=== PATIENT | female | born 2000 | race Caucasian/White ===

== ENCOUNTER 2022-11-11 11:16 | Outpatient (OUT) | payer BC, SELFPAY ==
[2022-11-11 11:57] LABS: Glucose 1 Hour 128 mg/dL
[2022-11-11 12:13] LABS: Basophils Percent Auto 0.2 % (0.2-2.0); Eosinophils Absolute Auto 0.1 10^3/uL (0.0-0.7); Eosinophils Percent Auto 0.5 % (0.9-7.0); Hematocrit 37.7 % (36.0-48.0); Hemoglobin 12.5 g/dL (12.0-16.0); Immature Granulocytes Abs Auto 0.11 10^3/uL (0.00-0.03); Immature Granulocytes Pct Auto 0.9 % (0.0-0.5); Lymphocytes Absolute Auto 1.8 10^3/uL (1.2-3.8); Mean Corpuscular HGB Conc 33.2 g/dL (29.9-35.2); Mean Corpuscular Hemoglobin 29.4 pg (26.7-34.0); Mean Corpuscular Volume 88.7 fL (81.0-99.0); Mean Platelet Volume 10.4 fL (9.5-13.5); Monocytes Absolute Auto 0.8 10^3/uL (0.3-0.8); Monocytes Percent Auto 6.1 % (1.7-12.0); Neutrophils Percent Auto 78.3 % (43.0-75.0); Platelet Count 246 10^3/uL (150-450); Red Blood Count 4.25 10^6/uL (4.20-5.40); Red Cell Distribution Width 12.9 % (11.0-15.0); White Blood Count 12.7 10^3/uL (4.0-11.0)
== END 2022-11-11 11:17 ==
LOC: LAB 11:20
PROVIDERS: Visit Provider Obstetrics & Gynecology
DX: Z13.1 Encounter for screening for diabetes mellitus (principal)
CPT/HCPCS: 36415; 82950; 85025

== ENCOUNTER 2022-11-11 12:47 | Outpatient (OUT) | payer BC, SELFPAY ==
--- NOTE | 2022-11-11 12:52 | US_ITS ---
[place] [id number] Patient Name: JONG AYERS MRN: [id number] date: 2000 Sex: F Assigned Patient Location: RAD Current Patient Location: RAD Accession/Order Number: [id number] Exam Date: 11/11/2022 12:55 Report Date: 11/11/2022 17:37 At the request of: YARA GARCIA Procedure: US OB growth EXAMINATION: US OB growth HISTORY: size Inconsistant with dates O26.849 COMPARISON: No relevant comparison available. FINDINGS: Heart Rate: 146.7 bpm Amniotic Fluid Volume: 17.6 cm Number: 1.0 Position: Breech presentation, longitudinal lie Maximum Vertical Pocket: 4.7 cm cm 5.3 cm cm 1.7 cm cm 5.8 cm cm BIOMETRY: BPD: 6.7 cm cm; 27 weeks 0 days; 57% HC: 25.1 cmcm; 27 weeks 1 days, 45% AC: 26.5 cm cm; 30 weeks 5 days, >97% FL: 5.1 cm cm; 27 weeks 1 days; 54.0 % % EFW: 1308.0 grams, 2 lbs. 14 oz.,>97% FL/AC: 19.1 FL/BPD: 75.4 HC/AC: 0.9 GESTATIONAL AGE: Age by EDC: 26 weeks 4 days NHAN by EDC: 02/13/2023 Age by US: 28 weeks 0 days NHAN by US: 02/03/2023 IMPRESSION: Large for gestational age Abdominal circumference and estimated weight greater than the 97th percentile Electronically authenticated by: SIMA LEVY Date: 11/11/2022 17:37
== END 2022-11-11 12:48 ==
LOC: RAD 12:48
PROVIDERS: Visit Provider Physician Assistant
DX: Z13.1 Encounter for screening for diabetes mellitus (principal); O26.842 Uterine size-date discrepancy, second trimester; Z3A.26 26 weeks gestation of pregnancy
CPT/HCPCS: 36415; 76816; 82950; 85025

== ENCOUNTER 2022-12-06 07:39 | Outpatient (OUT) | payer BC, SELFPAY ==
[2022-12-06 12:58] VITALS: BP 122/83; PULSE 107; RESP 20; TEMP 36.4; O2SAT 100
[2022-12-06] MEDS: RHO(D) IMMUNE GLOBULIN 1,500 UNIT SYRINGE 1500 UNIT IM (13:02)
--- NOTE | 2022-12-06 13:18 | PC.NURSE ---
1258: Pt. to [facility] amb per self. Seated in recliner. Blood type and allergies verified. Educated pt. on purpose of Rhogam, questions addressed. Pt. medicated with Rhophylac 1500IU IM to right dorsal gluteal. No bleeding to site. Bandaid placed prophylactically. Pt. tolerated with minimal c/o. Given water. Reminded pt. need for brief observation for potential reaction. Pt. relays understanding. Pt. inquired about edi consultant. Pt. given Joleen Clarke RN number and extension. 1330: Pt. relays slight nausea, but relays she was nervous . Denies other c/o. Pt. d/c'd amb to home.
== END 2022-12-06 07:40 | disposition home or self-care (01) ==
LOC: LAB 07:40
PROVIDERS: Visit Provider Obstetrics & Gynecology
DX: O26.893 Other specified pregnancy related conditions, third trimester (principal); Z67.11 Type A blood, Rh negative; Z3A.49 Greater than 42 weeks gestation of pregnancy
CPT/HCPCS: 36415; 86850; 86900; 86901; 96372; J2790

== ENCOUNTER 2022-12-21 14:11 | Outpatient (OUT) | payer BC, SELFPAY ==
--- NOTE | 2022-12-21 14:15 | US_ITS ---
[address] [address] Patient Name: JONG AYERS MRN: [id number] date: 2000 Sex: F Assigned Patient Location: Current Patient Location: US Accession/Order Number: [id number] Exam Date: 12/21/2022 14:16 Report Date: 12/21/2022 15:09 At the request of: DEMETRICE JEAN-BAPTISTE Procedure: US OB growth EXAMINATION: US OB growth HISTORY: SIZE INCONSISTENT WITH DATES COMPARISON: No relevant comparison available. FINDINGS: Heart Rate: 159.0 bpm Number: 1.0 Position: CEPHALIC Amniotic Fluid Volume: 15.4 cm Maximum Vertical Pocket: 5.0 cm BIOMETRY: BPD: 8.5 cm cm; 34 weeks 1 days HC: 30.6 cmcm; 34 weeks 1 days AC: 29.5 cm cm; 33 weeks 4 days FL: 6.5 cm cm; 33 weeks 5 days EFW: 2250.0 grams; 82% FL/AC: 22.1 FL/BPD: 76.9 HC/AC: 1.0 GESTATIONAL AGE: Age by EDC: 32 weeks 2 days NHAN by EDC: 02/13/2023 Age by US: 33 weeks 6 days NHAN by US: 02/02/2023 US/US OB growth IMPRESSION: 1. Single live intrauterine with growth detailed above. Electronically authenticated by: KEV WOLFF Date: 12/21/2022 15:09
== END 2022-12-21 14:12 | disposition home or self-care (01) ==
LOC: US 14:12
PROVIDERS: Visit Provider Obstetrics & Gynecology
DX: O26.849 Uterine size-date discrepancy, unspecified trimester (principal); Z3A.00 Weeks of gestation of pregnancy not specified
CPT/HCPCS: 76816

== ENCOUNTER 2023-01-19 12:28 | Outpatient (REF) | payer BC, SELFPAY | END 2023-01-19 12:29 | disposition home or self-care (01) | LOC: LAB 12:28 | PROVIDERS: Visit Provider Obstetrics & Gynecology | DX: Z34.93 Encounter for supervision of normal pregnancy, unspecified, third trimester (principal) | CPT/HCPCS: 87081 ==

== ENCOUNTER 2023-01-26 14:03 | Outpatient (OUT) | payer BC, SELFPAY ==
--- NOTE | 2023-01-26 14:04 | US_ITS ---
[address] [address] Patient Name: JONG AYERS MRN: [id number] date: 2000 Sex: F Assigned Patient Location: US Current Patient Location: US Accession/Order Number: [id number] Exam Date: 01/26/2023 14:08 Report Date: 01/26/2023 15:09 At the request of: DEMETRICE JEAN-BAPTISTE Procedure: US OB growth EXAMINATION: US OB growth HISTORY: EXCESSIVE GROWTH O36.63 COMPARISON: No relevant comparison available. FINDINGS: Heart Rate: 140.0 bpm Amniotic Fluid Volume: 12.8 cm Number: 1.0 Position: Cephalic presentation, longitudinal lie Maximum Vertical Pocket: 3.7 cm cm 3.4 cm cm 3.2 cm cm 2.6 cm cm BIOMETRY: BPD: 9.6 cm cm; 39 weeks 2 days; 97% HC: 34.2 cmcm; 39 weeks 3 days, 74% AC: 34.8 cm cm; 38 weeks 5 days, 92% FL: 7.5 cm cm; 38 weeks 1 days; 69.3 % % EFW: 3587.2 grams, 7 lbs. 15 oz., 88% FL/AC: 21.4 FL/BPD: 77.6 HC/AC: 1.0 GESTATIONAL AGE: Age by EDC: 37 weeks 3 days NHAN by EDC: 02/13/2023 Age by US: 38 weeks 6 days NHAN by US: 02/03/2023 US/US OB growth IMPRESSION: BPD at the 97th percentile, otherwise normal interval growth Electronically authenticated by: SIMA LEVY Date: 01/26/2023 15:09
== END 2023-01-26 14:04 | disposition home or self-care (01) ==
LOC: US 14:03
PROVIDERS: Visit Provider Obstetrics & Gynecology
DX: O36.63X0 Maternal care for excessive fetal growth, third trimester, not applicable or unspecified (principal); Z3A.37 37 weeks gestation of pregnancy
CPT/HCPCS: 76816

== ENCOUNTER 2023-02-08 04:23 | Inpatient (IN) | payer BC, SELFPAY ==
[2023-02-08] VITALS (47 sets, daily range): BP systolic 92–157; BP diastolic 42–93; PULSE 84–146; RESP 16–61; TEMP 36.2–37.4; O2SAT 98–100
[2023-02-08 05:20] LABS: Hematocrit 36.2 % (36.0-48.0); Hemoglobin 12.2 g/dL (12.0-16.0); Mean Corpuscular HGB Conc 33.7 g/dL (29.9-35.2); Mean Corpuscular Hemoglobin 27.9 pg (26.7-34.0); Mean Corpuscular Volume 82.6 fL (81.0-99.0); Mean Platelet Volume 11.8 fL (9.5-13.5); Platelet Count 279 10^3/uL (150-450); Red Blood Count 4.38 10^6/uL (4.20-5.40); Red Cell Distribution Width 13.8 % (11.0-15.0)
[2023-02-08 05:21] LABS: Bilirubin Urine NEGATIVE (NEGATIVE); Blood Urine LARGE (NEGATIVE); Clarity Urine CLEAR (CLEAR); Color Urine LT. YELLOW (YELLOW); Glucose Urine UA NEGATIVE (NEGATIVE); Ketones Urine NEGATIVE (NEGATIVE); Leukocyte Esterase Urine NEGATIVE (NEGATIVE); Nitrite Urine NEGATIVE (NEGATIVE); Protein Urine NEGATIVE (NEG/TRACE); Urobilinogen Urine 0.2 EU/dL (0.2-1.0)
[2023-02-08 05:25] LABS: Urine Microscopic Indicated YES
[2023-02-08] MEDS: 0.9 % SODIUM CHLORIDE 1,000 ML 125 ML IV ×3 (05:27→12:12)
[2023-02-08 05:32] LABS: Amphetamine Screen Urine NEGATIVE (NEGATIVE); Barbiturates Screen Urine NEGATIVE (NEGATIVE); Benzodiazepines Screen Urine NEGATIVE (NEGATIVE); Buprenorphine Screen Urine NEGATIVE (NEGATIVE); Cannabinoid Screen Urine NEGATIVE (NEGATIVE); Cocaine Screen Urine NEGATIVE (NEGATIVE); Methadone Screen Urine NEGATIVE (NEGATIVE); Methamphetamines Screen Urine NEGATIVE (NEGATIVE); Opiate Screen Urine NEGATIVE (NEGATIVE); Oxycodone Screen Urine NEGATIVE (NEGATIVE); Phencyclidine Screen Urine NEGATIVE (NEGATIVE); Tricyclic Antidepressant Urine NEGATIVE (NEGATIVE)
[2023-02-08 05:36] LABS: Bacteria Urine TRACE #/HPF (NONE SEEN); Cast Seen? NONE SEEN #/LPF (NONE SEEN); Crystals Seen? None Seen #/HPF (None Seen); Mucus Urine NONE SEEN (NONE SEEN); RBC Urine 0-2 #/HPF (0-2); Squamous Epithelial Cell Urine MANY #/LPF (NONE/RARE); Urine Culture Indicated NO; WBC Urine 0-2 #/HPF (NONE SEEN)
[2023-02-08] MEDS: ROPIVACAINE HCL/PF 400 MG/200 ML PREMIX 10 MG EPIDURAL (06:14)
[2023-02-08] MEDS: FENTANYL CITRATE/PF 100 MCG/2 ML VIAL EPIDURAL ×2 (06:16→06:18)
[2023-02-08] MEDS: 0.9 % SODIUM CHLORIDE 1,000 ML 1000 ML IV (06:18)
[2023-02-08] MEDS: ONDANSETRON PF 4 MG/2 ML VIAL IV ×2 (07:29→11:36)
[2023-02-08] MEDS: OXYTOCIN/0.9 % SODIUM CHLORIDE 10 UNITS/500 ML PLAST..BAG 6 UNIT IV (08:42)
[2023-02-08] MEDS: OXYTOCIN/0.9 % SODIUM CHLORIDE 20 UNITS/1,000 ML PLAST..BAG 125 UNIT IV (11:28)
--- NOTE | 2023-02-08 11:44 | PM.OBPRCVD ---
Procedure Intrapartal events: None Induction method: none Delivery augmentation: pitocin Delivery monitor: external FHT and external uterine Route of delivery: Episiotomy Description: right mediolateral Laceration description: perineal - 4th degree Delivery repair: Vicryl and Chromic Estimated blood loss (mL): 400 Anesthesia type: Epidural Disposition: floor Delivery date: 02/08/23 Gender: male presentation: vertex Placental delivery description: Spontaneous cord description: 3 Vessels and Nuchal Cord
[2023-02-08] MEDS: BENZOCAINE/MENTHOL 85 GRAM SPRAY BOTTLE 1 APPLIC TOPICAL (12:42)
[2023-02-08] MEDS: GLYCERIN/WITCH HAZEL PADS 1 PAD TOPICAL (12:42)
[2023-02-08 13:11] LABS: Basophils Percent Auto 0.1 % (0.2-2.0); Hematocrit 27.7 % (36.0-48.0); Immature Granulocytes Abs Auto 0.09 10^3/uL (0.00-0.03); Immature Granulocytes Pct Auto 0.5 % (0.0-0.5); Lymphocytes Absolute Auto 1.5 10^3/uL (1.2-3.8); Lymphocytes Percent Auto 8.6 % (20.5-60.0); Mean Corpuscular HGB Conc 32.5 g/dL (29.9-35.2); Mean Corpuscular Hemoglobin 27.6 pg (26.7-34.0); Mean Platelet Volume 11.8 fL (9.5-13.5); Monocytes Absolute Auto 1.5 10^3/uL (0.3-0.8); Monocytes Percent Auto 8.4 % (1.7-12.0); Neutrophils Absolute Auto 14.6 10^3/uL (1.4-6.5); Neutrophils Percent Auto 82.4 % (43.0-75.0); Platelet Count 244 10^3/uL (150-450); Red Blood Count 3.26 10^6/uL (4.20-5.40); Red Cell Distribution Width 13.9 % (11.0-15.0); White Blood Count 17.7 10^3/uL (4.0-11.0)
[2023-02-08] MEDS: IBUPROFEN 600 MG TABLET PO ×2 (15:19→21:48)
[2023-02-08] MEDS: ACETAMINOPHEN 325 MG TABLET 650 MG PO (20:20)
[2023-02-09] VITALS (27 sets, daily range): BP systolic 86–129; BP diastolic 50–84; PULSE 90–133; RESP 16–22; TEMP 36.2–36.9
[2023-02-09] MEDS: IBUPROFEN 600 MG TABLET PO ×4 (03:56→23:25)
--- NOTE | 2023-02-09 07:09 | W.PC.ACHO ---
Registration Status: ADM IN Primary Language: Spanish Preferred Language: Spanish Active Medications Generic Name Dose Route Start Last Admin Trade Name Freq PRN Reason Stop Dose Admin Acetaminophen 650 mg 02/08/23 11:46 02/08/23 20:20 Acetaminophen 325 Mg Tablet PO 650 mg Q6H PRN Administration Mild Pain Al Hydroxide/Mg Hydroxide 2,400 mg 02/08/23 11:46 Magnesium Hydroxide 2,400 Mg/10 Ml Oral.Susp PO Q6H PRN Dyspepsia Benzocaine/Menthol 1 applic 02/08/23 11:46 02/08/23 12:42 Benzocaine/Menthol 85 Gram [place] Bottle TOPICAL 1 applic Q2H PRN Administration Pain Carboprost Tromethamine 250 mcg 02/08/23 04:23 Carboprost Tromethamine 250 Mcg/Ml 1 Ml Vial IM 02/09/23 12:00 Q15M PRN Bleeding Diphtheria/Pertussis/Tetanus Vacc 0.5 ml 02/10/23 09:00 Adacel Diph,Pertuss(Acell),Tet Vac/Pf 0.5 Ml Adult Syringe IM 02/10/23 09:01 .ONCE ONE Docusate Sodium 100 mg 02/09/23 09:00 Docusate Sodium 100 Mg Capsule PO BID MARK Sodium Chloride 1,000 mls @ 125 mls/hr 02/08/23 04:30 02/08/23 12:12 Sodium Chloride 0.9% 1,000 Ml IV 125 mls/hr .Q8H MARK Administration Ibuprofen 600 mg 02/08/23 11:46 02/09/23 03:56 Ibuprofen 600 Mg Tablet PO 600 mg Q6H PRN Administration Moderate Pain Measles/Mumps/Rubella Vaccine Live 0.5 ml 02/10/23 09:00 Measles,Mumps,Rubella Vacc/Pf 0.5 Ml Vial SQ 02/10/23 09:01 .ONCE ONE Methylergonovine Maleate 0.2 mg 02/08/23 04:23 Methylergonovine Maleate 0.2 Mg/Ml Ampule IM 02/09/23 12:00 ONCE PRN Uterine Contractility/Contract Methylergonovine Maleate 0.2 mg 02/08/23 04:23 Methylergonovine Maleate 0.2 Mg Tablet PO 02/09/23 12:00 Q4H PRN Uterine Contractility/Contract Misoprostol 600 mcg 02/08/23 04:23 Misoprostol 100 Mcg Tablet PO 02/09/23 12:00 ONCE PRN Uterine Bleeding Misoprostol 800 mcg 02/08/23 04:23 Misoprostol 100 Mcg Tablet SL 02/09/23 12:00 ONCE PRN Uterine Bleeding Misoprostol 1,000 mcg 02/08/23 04:23 Misoprostol 100 Mcg Tablet [place] 02/09/23 12:00 ONCE PRN Uterine Bleeding Ondansetron HCl 4 mg 02/08/23 04:23 02/08/23 11:36 Ondansetron Pf 4 Mg/2 Ml Vial IV 4 mg Q6H PRN Administration Nausea And Vomiting Ondansetron HCl 4 mg 02/08/23 04:23 Ondansetron 4 Mg Rapdis Tablet SL Q6H PRN Nausea And Vomiting Rho Immune Globulin 1,500 unit 02/09/23 10:00 Rho(D) Immune Globulin 1,500 Unit Syringe IV 02/09/23 10:01 ONCE ONE Senna 17.2 mg 02/08/23 20:00 Sennosides 8.6 Mg Tablet PO QHS PRN Constipation Simethicone 80 mg 02/08/23 11:46 Simethicone 80 Mg Tab.Chew PO QID PRN Abdominal Distention Temazepam 15 mg 02/08/23 11:46 Temazepam 15 Mg Capsule PO QHS PRN Sleep Witch Lucretia/Glycerin 1 pad 02/08/23 11:46 02/08/23 12:42 Glycerin/Witch Lucretia Pads TOPICAL 1 pad Q2H PRN Administration Pain Diet Category Date Time Status Regular Consistency Diet Diet 02/08/23 Dinner Active Respiratory Pulse Oximetry 98 Pulse Oximetry 98 Pulse Oximetry 100 Pulse Oximetry 100 Oxygen Delivery Method Room Air Oxygen Delivery Method Room Air Renal Bladder Pattern Continent
[2023-02-09 08:06] LABS: Basophils Percent Auto 0.2 % (0.2-2.0); Eosinophils Absolute Auto 0.1 10^3/uL (0.0-0.7); Eosinophils Percent Auto 0.4 % (0.9-7.0); Immature Granulocytes Abs Auto 0.11 10^3/uL (0.00-0.03); Immature Granulocytes Pct Auto 0.8 % (0.0-0.5); Lymphocytes Absolute Auto 2.6 10^3/uL (1.2-3.8); Lymphocytes Percent Auto 18.7 % (20.5-60.0); Mean Corpuscular HGB Conc 31.9 g/dL (29.9-35.2); Mean Corpuscular Hemoglobin 27.7 pg (26.7-34.0); Mean Platelet Volume 11.3 fL (9.5-13.5); Neutrophils Absolute Auto 9.9 10^3/uL (1.4-6.5); Neutrophils Percent Auto 72.9 % (43.0-75.0); Platelet Count 165 10^3/uL (150-450); Red Blood Count 2.38 10^6/uL (4.20-5.40); Red Cell Distribution Width 14.3 % (11.0-15.0); White Blood Count 13.6 10^3/uL (4.0-11.0)
[2023-02-09 08:11] LABS: Hematocrit 20.7 % (36.0-48.0); Hemoglobin 6.6 g/dL (12.0-16.0)
--- NOTE | 2023-02-09 08:47 | PC.NURSE ---
Independently latches baby to right breast with good positioning and deep latch noted. Audible swallows noted by mom and LC
[2023-02-09] MEDS: DOCUSATE SODIUM 100 MG CAPSULE PO ×2 (10:04→21:26)
[2023-02-09] MEDS: ONDANSETRON 4 MG RAPDIS TABLET SL (11:10)
--- NOTE | 2023-02-09 13:16 | PM.OBPN ---
OB - PN: Subj Subjective Patient comments: no complaints and pain well controlled [place] status: doing well Exam Constitutional Vital Signs, click to edit/add: Last Vital Signs Temp 97.6 F 02/09/23 11:50 Pulse 109 H 02/09/23 13:03 Resp 16 02/09/23 11:49 BP 129/69 02/09/23 13:03 Pulse Ox 98 02/08/23 12:40 O2 Del Method Room Air 02/09/23 11:50 Documenting provider has reviewed patient's vital signs: yes Common normals: no apparent distress Respiratory Common normals: normal respiratory effort and clear to auscultation bilaterally Cardio Common normals: regular rate and regular rhythm GI Common normals: Normal to inspection, nondistended, normoactive bowel sounds present Extremity Common normals: no clubbing, cyanosis or edema and no calf tenderness Results Labs Labs: Short CBC 02/09/23 Range/Units 06:55 WBC 13.6 H (4.0-11.0) 10^3/uL Hgb 6.6 L* D (12.0-16.0) g/dL Hct 20.7 L* (36.0-48.0) % Plt Count 165 (150-450) 10^3/uL OB - PN: A/P Assessment and Plan (1) Acute blood loss anemia: Assessment and Plan: give 2u prbcs, repeat cbc in am Plan - Vaginal Delivery day: 1 Plan: routine care Time Spent with Patient Time: Total time spent is greater than 50% in coordination of care (as documented) at patient's floor/unit and/or counseling patient: Total time spent with greater than 50% in coordination of care (as documented) at patient's floor/unit and/or counseling patient: less than 15 minutes
--- NOTE | 2023-02-09 14:22 | PC.NURSE ---
1030 discussed order for blood and pt agrees, asks appropriate questions and answers resolved, saline lock flushes easily and blood begun- see charting,
--- NOTE | 2023-02-09 14:25 | PC.NURSE ---
1110 States feels hot and has nausea, room temp adjusted and medicated with zofran and given cool washcloth
[2023-02-09] MEDS: RHO(D) IMMUNE GLOBULIN 1,500 UNIT SYRINGE 1500 UNIT IV (17:00)
--- NOTE | 2023-02-09 17:44 | PC.NURSE ---
1700 Given sitz bath and donut pillow with instructions, fresh ice pack, instructed on sidelying positioning and education provided on bathing baby and circ care with demo of each done
[2023-02-09] MEDS: BUPROPION HCL 150 MG XL TABLET 24H PO (21:26)
[2023-02-10 01:18] VITALS: BP 118/74; PULSE 97; TEMP 36.4
[2023-02-10 06:24] LABS: Basophils Absolute Auto 0.1 10^3/uL (0.0-0.1); Basophils Percent Auto 0.4 % (0.2-2.0); Eosinophils Absolute Auto 0.3 10^3/uL (0.0-0.7); Eosinophils Percent Auto 2.3 % (0.9-7.0); Hematocrit 26.6 % (36.0-48.0); Hemoglobin 8.6 g/dL (12.0-16.0); Immature Granulocytes Abs Auto 0.16 10^3/uL (0.00-0.03); Immature Granulocytes Pct Auto 1.3 % (0.0-0.5); Lymphocytes Absolute Auto 2.7 10^3/uL (1.2-3.8); Lymphocytes Percent Auto 21.8 % (20.5-60.0); Mean Corpuscular HGB Conc 32.3 g/dL (29.9-35.2); Mean Corpuscular Hemoglobin 28.1 pg (26.7-34.0); Mean Corpuscular Volume 86.9 fL (81.0-99.0); Monocytes Absolute Auto 0.9 10^3/uL (0.3-0.8); Monocytes Percent Auto 7.1 % (1.7-12.0); Neutrophils Absolute Auto 8.3 10^3/uL (1.4-6.5); Neutrophils Percent Auto 67.1 % (43.0-75.0); Platelet Count 177 10^3/uL (150-450); Red Blood Count 3.06 10^6/uL (4.20-5.40); Red Cell Distribution Width 14.7 % (11.0-15.0); White Blood Count 12.4 10^3/uL (4.0-11.0)
--- NOTE | 2023-02-10 07:32 | P.OBPN_ITS ---
OB - PN: Subj Subjective Patient comments: no complaints and pain well controlled [place] status: doing well Exam Constitutional Vital Signs, click to edit/add: Last Vital Signs Temp 97.6 F 02/10/23 01:18 Pulse 97 H 02/10/23 01:18 Resp 16 02/09/23 17:41 BP 118/74 02/10/23 01:18 Pulse Ox 98 02/08/23 12:40 O2 Del Method Room Air 02/09/23 13:35 Documenting provider has reviewed patient's vital signs: yes Common normals: no apparent distress Respiratory Common normals: normal respiratory effort and clear to auscultation bilaterally Cardio Common normals: regular rate and regular rhythm GI Common normals: Normal to inspection, nondistended, normoactive bowel sounds present Extremity Common normals: normal to inspection, no clubbing, cyanosis or edema and no calf tenderness Results Labs Labs: Short CBC 02/09/23 02/10/23 Range/Units 06:55 06:15 WBC 13.6 H 12.4 H (4.0-11.0) 10^3/uL Hgb 6.6 L* D 8.6 L (12.0-16.0) g/dL Hct 20.7 L* 26.6 L (36.0-48.0) % Plt Count 165 177 (150-450) 10^3/uL OB - PN: A/P Assessment and Plan (1) Acute blood loss anemia: Plan - Vaginal Delivery day: 2 Plan: routine care, discharge home and other (fu 2wks) Time Spent with Patient Time: Total time spent is greater than 50% in coordination of care (as documented) at patient's floor/unit and/or counseling patient: Total time spent with greater than 50% in coordination of care (as documented) at patient's floor/unit and/or counseling patient: less than 15 minutes
[2023-02-10] MEDS: IBUPROFEN 600 MG TABLET PO (07:33)
--- NOTE | 2023-02-10 08:08 | PC.NURSE ---
TDAP offered, patient refused.
--- NOTE | 2023-02-10 08:12 | W.PC.ACHO ---
Registration Status: ADM IN Primary Language: Lebanese Preferred Language: Lebanese Active Medications Generic Name Dose Route Start Last Admin Trade Name Freq PRN Reason Stop Dose Admin Acetaminophen 650 mg 02/08/23 11:46 02/08/23 20:20 Acetaminophen 325 Mg Tablet PO 650 mg Q6H PRN Administration Mild Pain Al Hydroxide/Mg Hydroxide 2,400 mg 02/08/23 11:46 Magnesium Hydroxide 2,400 Mg/10 Ml Oral.Susp PO Q6H PRN Dyspepsia Benzocaine/Menthol 1 applic 02/08/23 11:46 02/08/23 12:42 Benzocaine/Menthol 85 Gram [place] Bottle TOPICAL 1 applic Q2H PRN Administration Pain Bupropion HCl 150 mg 02/09/23 21:00 02/09/23 21:26 Bupropion Hcl 150 Mg Xl Tablet 24h PO 150 mg QD MARK Administration Diphtheria/Pertussis/Tetanus Vacc 0.5 ml 02/10/23 09:00 Adacel Diph,Pertuss(Acell),Tet Vac/Pf 0.5 Ml Adult Syringe IM 02/10/23 09:01 .ONCE ONE Docusate Sodium 100 mg 02/09/23 09:00 02/09/23 21:26 Docusate Sodium 100 Mg Capsule PO 100 mg BID MARK Administration Sodium Chloride 1,000 mls @ 125 mls/hr 02/08/23 04:30 02/08/23 12:12 Sodium Chloride 0.9% 1,000 Ml IV 125 mls/hr .Q8H MARK Administration Ibuprofen 600 mg 02/08/23 11:46 02/10/23 07:33 Ibuprofen 600 Mg Tablet PO 600 mg Q6H PRN Administration Moderate Pain Measles/Mumps/Rubella Vaccine Live 0.5 ml 02/10/23 09:00 Measles,Mumps,Rubella Vacc/Pf 0.5 Ml Vial SQ 02/10/23 09:01 .ONCE ONE Ondansetron HCl 4 mg 02/08/23 04:23 02/08/23 11:36 Ondansetron Pf 4 Mg/2 Ml Vial IV 4 mg Q6H PRN Administration Nausea And Vomiting Ondansetron HCl 4 mg 02/08/23 04:23 02/09/23 11:10 Ondansetron 4 Mg Rapdis Tablet SL 4 mg Q6H PRN Administration Nausea And Vomiting Senna 17.2 mg 02/08/23 20:00 Sennosides 8.6 Mg Tablet PO QHS PRN Constipation Simethicone 80 mg 02/08/23 11:46 Simethicone 80 Mg Tab.Chew PO QID PRN Abdominal Distention Temazepam 15 mg 02/08/23 11:46 Temazepam 15 Mg Capsule PO QHS PRN Sleep Witch Lucretia/Glycerin 1 pad 02/08/23 11:46 02/08/23 12:42 Glycerin/Witch Lucretia Pads TOPICAL 1 pad Q2H PRN Administration Pain Respiratory Oxygen Delivery Method Room Air Oxygen Delivery Method Room Air Oxygen Delivery Method Room Air
[2023-02-10] MEDS: DOCUSATE SODIUM 100 MG CAPSULE PO (08:37)
[2023-02-10 08:39] VITALS: BP 106/67; PULSE 90
[2023-02-10 09:03] VITALS: TEMP 36.7
[2023-02-10 10:12] VITALS: O2SAT 99
[2023-02-10 11:15] VITALS: PULSE 90; RESP 20; O2SAT 99
== END 2023-02-10 13:45 | disposition home or self-care (01) | DRG 768 ==
LOC: FBCO 04:24 → FBC 04:24
PROVIDERS: Admitting Provider Obstetrics & Gynecology; Visit Provider Obstetrics & Gynecology
DX: O26.893 Other specified pregnancy related conditions, third trimester (principal); Z37.0 Single live birth; D62 Acute posthemorrhagic anemia; O70.3 Fourth degree perineal laceration during delivery; O99.02 Anemia complicating childbirth; O69.81X0 Labor and delivery complicated by cord around neck, without compression, not applicable or unspecified; O99.344 Other mental disorders complicating childbirth; F32.A Depression, unspecified; Z83.3 Family history of diabetes mellitus; Z82.49 Family history of ischemic heart disease and other diseases of the circulatory system; Z3A.39 39 weeks gestation of pregnancy; Z79.899 Other long term (current) drug therapy; Z67.11 Type A blood, Rh negative
CPT/HCPCS: 36415; 36430; 51702; 59025; 59050; 59410; 80307; 81001; 85025; 85027; 85461; 86850; 86900; 86901; 86920; 96365; 96372; 96375; 96376; J2790; P9016

== ENCOUNTER 2023-03-23 15:10 | Outpatient (OUT) | payer BC, SELFPAY ==
--- NOTE | 2023-03-23 15:16 | US_ITS ---
Patient: JONG AYERS Exam Date: 03/23/2023 : 2000 Gender:F Ordering : DR Deshawn Rose . Admission #: [id number] Family : Non-Staff Physician Order #: [id number] CLICK HERE TO VIEW EXAM RADIOLOGY REPORT PROCEDURE: US BREAST RT LIMITED COMPARISON: None. INDICATIONS: Lump in Female Breast N63.0 TECHNIQUE: Breast ultrasound was performed, with evaluation focusing only on specific areas of concern. FINDINGS: DIAGNOSTIC CATEGORY 4--SUSPICIOUS FOR MALIGNANCY. FINDING DOES NOT EXHIBIT CLASSIC FINDINGS OF BREAST CANCER: RIGHT BREAST: 1.8 x 1.5 x 1.0 cm heterogeneous isoechoic mass with some indistinct margins at the 6 o'clock position corresponding to patient's palpable lump. Ultrasound-guided biopsy is recommended. RECOMMENDATIONS: ULTRASOUND-GUIDED CORE BIOPSY: RIGHT BREAST PLEASE NOTE: A NORMAL ULTRASOUND EXAMINATION DOES NOT EXCLUDE THE POSSIBILITY OF BREAST CANCER. A CLINICALLY SUSPICIOUS PALPABLE LUMP SHOULD BE BIOPSIED. Dictated by: Andres Lewis M.D. on 03/24/2023 at 13:46 Approved by: Andres Lewis M.D. on 03/24/2023 at 13:53
== END 2023-03-23 15:11 | disposition home or self-care (01) ==
LOC: US 15:12
PROVIDERS: Visit Provider Obstetrics & Gynecology
DX: N63.0 Unspecified lump in unspecified breast (principal); N63.14 Unspecified lump in the right breast, lower inner quadrant
CPT/HCPCS: 76642

== ENCOUNTER 2023-04-11 10:28 | Day surgery (SDC) | payer BC, SELFPAY ==
[2023-04-11 10:40] VITALS: BP 121/78; PULSE 88; O2SAT 98
--- NOTE | 2023-04-11 10:40 | US_ITS ---
[address] [address] Patient Name: JONG AYERS MRN: [id number] date: 2000 Sex: F Assigned Patient Location: US Current Patient Location: US Accession/Order Number: [id number] Exam Date: 04/11/2023 11:00 Report Date: 04/11/2023 12:19 At the request of: DEMETRICE JEAN-BAPTISTE Procedure: US breast vac bx w/ clip RT EXAM: US breast vac bx w/ clip RT HISTORY: Right Breast Mass N63.10 COMPARISON: Ultrasound breast right Limited 03/23/2023 TECHNIQUE: After obtaining informed consent, ultrasound-guided biopsy was performed in the usual sterile manner. The location of the biopsy was then marked as indicated below. FINDINGS: Specimen #, Location: 3 core samples from right breast 6:00 mass 2.2 x 1.7 x 0.9 cm which is nearly isoechoic to surrounding fat, but has notably different firmer/rubbery feel during biopsy. Biopsy Needle: 13 gauge vacuum core biopsy needle. Marker(s): A single metallic marker was placed in the appropriate targeted location. Medication: Buffered 1% Lidocaine with epinephrine administered locally. Complications: None. Pathology: Pending. US/US breast vac bx w/ clip RT IMPRESSION: 1. Uneventful ultrasound-guided breast biopsy. 2. Pathology results are pending. An addendum to this report will be provided after pathology results are available. Electronically authenticated by: KEV WOLFF Date: 04/11/2023 12:19
[2023-04-11] MEDS: LIDOCAINE HCL/EPINEPHRINE 10 ML, SODIUM BICARBONATE 1 MEQ INJ (11:35)
[2023-04-11] MEDS: LIDOCAINE HCL 10 ML, SODIUM BICARBONATE 1 MEQ INJ (11:35)
--- NOTE | 2023-04-11 15:00 | SUR.PREOP ---
03/31/2023 Pt instructed on date, time, prep, and procedure.
--- OUTSIDE RECORDS SUMMARY | 2023-05-17 19:17 | XMS_ITS | CCD ---
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 Name Role Phone NORBERTO, JONNATHAN J Unavailable Unavailable CARLIE ARIAS Unavailable Unavailable CLINGMAN, NELA A Unavailable Unavailable CLINGMAN, NELA A Unavailable Unavailable CLINGMAN, NELA A Unavailable Unavailable CLINGMAN, NELA A Unavailable Unavailable CLINGMAN, NELA A Unavailable Unavailable CLINGMAN, NELA A Unavailable Unavailable CLINGMAN, NELA A Unavailable Unavailable JUDD WASHINGTON Unavailable Unavaila ble Hajdari, Astrit H Admitting Unavailable Hajdari, Astrit H Attending Unavailable Carlie Talley~[id number] UNKNOWN Primary Ca re Unavailable Timoteo, Matilda Admitting Unavailable Timoteo Matilda Attending Unavailable Carlie Talley~[id number] UNKNOWN Primary Ca re Unavailable Oro, Digna F Admitting Unavailable Oro, Digna F Attending Unavailable Daisy, Jolynn Primary Care Unavailable Daisy Jolynn Primary Care Unavailable CHRIS BUSTOS MD Admitting Unavailable CHRIS BUSTOS MD Attending Unavailable CHRIS BUSTOS MD Referring Unavailable Cuco, Avirup Unavailable Unavailable Trippe, Jonnathan J Unavailable Unavailable None, No PCP Unavailable Unavailable Trippe, Jonnathan J Unavailable Unavailable ROSE ., DR SURESH Admitting Unavailable ROSE ., DR SURESH Attending Unavailable ROSE ., DR SURESH Consulting Unavailable MISC, DR OLMEDO Primary Care Unavailable ROSE ., DR SURESH Attending Unavailable ROSE ., DR SURESH Consulting Unavailable ROSE ., DR SURESH Admitting Unavailable MISC, DR OLMEDO Primary Care Unavailable ROSE ., DR SURESH Admitting Unavailable ROSE ., DR SURESH Attending Unavailable ROSE ., DR SURESH Consulting Unavailable MISC, DR OLMEDO Primary Care Unavailable Kev Wolff Consulting Unavailable ROSE ., DR SURESH Admitting Unavailable ROSE ., DR SURESH Attending Unavailable ROSE ., DR SURESH Consulting Unavailable MISC, DR OLMEDO Primary Care Unavailable Kev Wolff Consulting Unavailable ROSE ., DR SURESH Admitting Unavailable ROSE ., DR SURESH Attending Unavailable MISC, DR OLMEDO Primary Care Unavailable ROSE ., DR SURESH Consulting Unavailable ROSE ., DR SURESH Admitting Unavailable ROSE ., DR SURESH Attending Unavailable ROSE ., DR SURESH Consulting Unavailable MISC, DR OLMEDO Primary Care Unavailable Kev Wolff Consulting Unavailable REQUEST, DR WYATT PEÑA Consulting Unavaila ble ROSE ., DR SURESH Admitting Unavailable ROSE ., DR SURESH Attending Unavailable MISC, DR OLMEDO Primary Care Unavailable ROSE ., DR SURESH Admitting Unavailable ROSE ., DR SURESH Attending Unavailable MISC, DR OLMEDO Primary Care Unavailable ROSE ., DR SURESH Consulting Unavailable Rose, Deshawn Attending Provider [phone] Deshawn Rose Admitting Unavailable Rose, Deshawn Attending Unavailable ROSEDESHAWN Attending Unavailable Jonnathan Pelayo Primary Care Provider Deshawn Rose DO R Unavailable Allergies Allergy Classification Reported Allergen(s) Allergy Type Date of Onset Reaction(s) Facility (2 sources) bee venom Drug allergy (disorder) [facility] Repository (1 source) beeswax Drug Allergy 9 Other: See Comments [facility] Work Phone: Medications Completed/Discontinued Medications Medication Drug Class(es) Dates Sig (Normalized) Sig (Original) buPROPion hydrochloride 75 mg oral tablet (1 source) Aminoketone Start: 02-28-2023 take 2 tablets by mouth in the morning buPROPion (WELLBUTRIN) 75 mg tablet TAKE 2 TABLETS (150 MG) BY MOUTH IN THE MORNING. 0 02/28/2023 Active Comment on above: TAKE 2 TABLETS (150 MG) BY MOUTH IN THE MORNING. citalopram 20 mg oral tablet (1 source) Serotonin Reuptake Inhibitor Start: 04-18-2023 take 1 tablet by mouth once daily in the morning citalopram (CELEXA) 20 mg tablet Take 20 mg by mouth every morning. 0 04/18/2023 Active Comment on above: Take 20 mg by mouth every morning. Setlakin 0.15-0.03 MG Oral Tablet (3 sources) Progestin, Estrogen, Progestin-containing Intrauterine Device take 1 tablet by mouth once daily Setlakin 0.15-0.03 MG Oral Tablet TAKE 1 TABLET DAILY. Refills: 0 DO Active 91 Tablet Pack take 1 tablet by mouth once alta y Setlakin 0.15-0.03 MG Oral Tablet TAKE 1 TABLET DAILY. Refills: 0 Active 91 Tablet Pack ibuprofen 800 mg oral tablet (3 sources) Nonsteroidal Anti-inflammatory Drug Start: 02-10-2023 ibuprofen (MOTRIN ) 800 mg tablet Take 800 mg by mouth. 0 02/10/2023 Active take 3 tablets by mo ut every eight hours as needed ibuprofen (MOTRIN IB) 200 mg tablet Take 600 mg by mouth every 8 hours as needed. 0 Active Comment on above: Take 600 mg by mouth every 8 hours as needed. Take 800 mg by mouth . 24 hr metoprolol succinate 25 mg extended release oral tablet (3 sources) beta-Adrenergic Andrea take 1 tablet by mouth once daily Metoprolol Succinate ER 25 MG Oral Tablet Extended Release 24 Hour TAKE 1 TABLET DAILY. Quantity: 90 Refills: 3 Active norethindrone 0.35 mg oral tablet (1 source) Start: 03-21-20 take 1 tablet by mouth in the morning Norethindrone, Contraceptive, 0.35 mg tablet TAKE 1 TABLET (0.35 MG) BY MOUTH IN THE MORNING 0 03/21/2023 Active Comment on above: TAKE 1 TABLET (0.35 MG) BY MOUTH IN THE MORNING sulfamethoxazole 800 mg / trimethoprim 160 mg oral tablet (3 sources) Dihydrofolate Reductase Inhibitor Antibacterial, Sulfonamide Antimicrobial Sulfamethoxazole-TMP DS 800-160 MG TABS TAKE 1 TABLET TWICE DAILY UNTIL FINISHED. Refills: 0 Active Problems Active Problems Problem Classification Problem Date Documented Date Episodic/Chronic Asthma (3 sources) Asthma; Translations: [Asthma] Chronic Cardiac dysrhythmias (3 sources) Sinus tachycardia; Translations: [Sinus tachycardia] Chronic Immunizations and screening for infectious disease (6 sources) Encounter for immunization; Translations: [Contact with and (suspected) exposure to infections with a predominantly sexual mode of transmission] Onset: 08-01-2017 Episodic Menstrual disorders (5 sources) Irregular menstruation, unspecified; Translations: [IRREGULAR MENSTRUATION UNSPECIFIED] Onset: 06-24-2022 Chronic Nonmalignant breast conditions (1 source) Lump in right breast; Translations: [Unspecified lump in the right breast, unspecified quadrant] 05-10-2023 Episodic Other female genital disorders (1 source) Other specified noninflammatory disorders of vagina; Translations: [OTH SPEC NONINFLAMMATORY D/O VAGINA] Onset: 08-21-2022 Episodic Other and delivery including normal (5 sources) Encounter for supervision of normal , unspecified, second trimester; Translations: [Encounter for supervision of normal , unspecified, first trimester] Onset: 06-25-2022 Episodic Other screening for suspected conditions (not mental disorders or infectious disease) (9 sources) Encounter for other specified screening; Translations: [Encounter for other screening for genetic and chromosomal anomalies] Onset: 04-19-2022 Episodic Polyhydramnios and other problems of amniotic cavity (1 source) Other specified disorders of amniotic fluid and membranes, unspecified trimester, not applicable or unspecified; Translations: [Other specified disorders of amniotic fluid and membranes, unspecified trimester, not applicable or unspecified] Onset: 02-09-2023 Episodic Syncope (3 sources) Syncope and collapse; Translations: [Syncope and collapse] Episodic Past or Other Problems Problem Classification Problem Date Documented Da te Episodic/Chronic Abdominal pain (4 sources) Unspecified abdominal pain; Translations: [Periumbilical pain] Onset: 06-21-2017 Episodic Gastrointestinal hemorrhage (1 source) Hematemesis; Translations: [Hematemesis] Onset: 06-21-2017 Episodic Open wounds of extremities (1 source) Laceration without foreign body of left upper arm, initial encounter; Translations: [Laceration without foreign body of left upper arm, initial encounter] Onset: 08-01-2017 Episodic Spondylosis; intervertebral disc disorders; other back problems (2 sources) Backache; Translations: [Dorsalgia, unspecified] Onset: 05-13-2014 05-13-2014 Episodic Urinary tract infections (4 sources) Acute cystitis with hematuria; Translations: [Acute pyelonephritis] Onset: 06-21-2017 Episodic NEGATED: Highlighted row has not occurred!Residual codes; unclassified (8 sources) Disease Episodic Results Test Name Value Interpretation Reference Range Facil ity Fetaldex / Kleihauer Betkeon 02-09-2023 Kleihauer Betke Ratio 0.0007 Ratio Normal [facility] Comment on above: Result Comment: Feta l maternal hemorrhage up to 15 ml 1 vial of Rhogam if indicated --- 02/09/231836 --- Kleihauer Betke previously reported as: 0.0007 Ratio PERFORMED BY: [facility] [place] [address] PATHOLOGIST PATIENT CENTERED CARE SPECIALIST ARLEY CASTRO M.D. US PREG CERVICAL LENGTHon US PREG CERVICAL LENGTH EXAMINATION: US PREG ANATOMY SINGLE, US PREG CERVICAL LENGTH HISTORY: anatomy study COMPARISON: No relevant comparison available. TECHNIQUE: Transabdominal sonographic examination was performed for obstetrical and evaluation. FINDINGS: Number: 1 Heart Rate: 147.0 bpm H.B. /min Amniotic Fluid Volume: Subjectively normal Placental Location: POSTERIOR with lower margin 3.0 cm from os. Cervix Length: 5.0 cm, closed except for small amount of fluid within cervical canal. ANATOMY: Normal Structures -cerebellum, choroid plexus, cisterna magna, lateral cerebral ventricles, orbits, midline falx, hard palate, four-chamber heart, RVOT, LVOT, stomach, kidneys, bladder, umbilical cord insertion into abdomen, three-vessel cord, cervical spine, thoracic spine, lumbar spine, sacral spine, right upper extremity, left upper extremity, right lower extremity, left lower extremity. SUBOPTIMALLY SEEN: None ABNORMALITIES: None BIOMETRY: BPD: 5.0 cm 21 weeks 1 days HC: 18.3 cm 20 weeks 5 days AC: 16.2 cm 21 weeks 2 days FL: 3.4 cm 20 weeks 4 days EFW:386.0 grams; 86% FL/AC: 20.8 FL/BPD: 67.1 HC/AC: 1.1 GESTATIONAL AGE: Age by EDC: 20 weeks 1 days NHAN by EDC: 02/13/2023 Age by current US: 21 weeks 0 days NHAN by current US: 02/07/2023 IMPRESSION: 1. Single live intrauterine with growth detailed above. Electronically authenticated by: KEV WOLFF Date: 2022-09-27 16:00 Normal [facility] l AFP MATERNAL FOR SPINA BIFID Aon 09-17-2022 AFP MoM 1.64 Normal [facility] Comment on above: Performed By: #### C T/NGNA #### [facility] [address] [address] [address] Phill Og AFP Value 67.6 ng/mL Normal [facility] Comment on above: Performed By: #### C T/NGNA #### [facility] [address] [address] [address] Phill Og AFP, Serum for Spina Bifida Report Normal [facility] Comment on above: Performed By: #### C T/NGNA #### [facility] [address] [address] [address] Phill Og Comment Comment Normal [facility] Comment on above: Result Comment: Katie Shay, Ph.D., [facility] Director . References: Available Upon Request. . Multiples Of Median Cutoffs For AFP Elevations Wheeler 2.5 Black 2.8 IDD 2.0 Twins 4.5 Abbreviation Definitions IDD - Insulin Dep Diabetes OSBR - Open Spina Bifida Risk . For further inquiries contact [facility] at [phone]. . This test was developed and its performance characteristics determined by [employer]. It has not been cleared or approved by the Food and Drug Administration. Performed By: #### C T/NGNA #### [facility] [address] [address] [address] Phill Castanon Age Collection Date 18.4 weeks Normal [facility] Comment on above: Performed By: #### C T/NGNA #### [facility] [id number] Phill Castanonat, Age Based on Ultrasound Normal [facility] Comment on above: Result Comment: 14.4 on 08/18/2022 Recalculations are not recommended when gestational dating by LMP and ultrasound are within 10 days. Performed By: #### C T/NGNA #### [facility] [address] [address] [address] Phill Og Insulin Dep Diabetes No Normal [facility] Comment on above: Performed By: #### C T/NGNA #### [facility] [address] [address] [address] Phill Og Interpretation Comment Normal [facility] Comment on above: Result Comment: Inte rpretation: Screen Negative . This result is screen negative for OSB. The AFP MoM calculated is based on the gestational age provided. MS-AFP can identify up to 80% of open neural tube defects. Closed neural tube defects and some open defects may not be detected by this test. This test does not screen for Down Syndrome or Trisomy 18. If screening for Down Syndrome or Trisomy 18 is desired, contact [employer] to discuss available options. The [employer] recommends amniocentesis be offered to women age 35 and older. Performed By: #### C T/NGNA #### [facility] [address] [place] [address] Dr. Phill Og [age] Normal [facility] Comment on above: Performed By: #### C T/NGNA #### [facility] [address] [place] [address] Dr. Phill Og Multiple Gestation No Normal [facility] Comment on above: Performed By: #### C T/NGNA #### [facility] [address] [place] [address] Dr. Phill Og OSBR Risk 1 IN 1895 Normal [facility] Comment on above: Performed By: #### C T/NGNA #### [facility] [address] [place] [address] Dr. Phill Og PDF . Normal [facility] Comment on above: Performed By: #### C T/NGNA #### [facility] [address] [place] [address] Dr. Phill Og Race Normal [facility] Comment on above: Performed By: #### C T/NGNA #### [facility] [address] [place] [address] Dr. Phill Og Test Results: Negative Normal [facility] Comment on above: Performed By: #### C T/NGNA #### [facility] [address] [place] [address] Dr. Phill Og CHLAMYDIA/GONOCOCCUS DANICA (SW AB/URINE/PAPon 08-21-2022 Chlamydia trachomatis, DANICA Negative Normal Negative [facility] Comment on above: Performed By: #### C T/NGNA #### [facility] [address] [place] [address] Dr. Phill Og Neisseria gonorrhoeae, DANICA Negative Normal Negative [facility] Comment on above: Performed By: #### C T/NGNA #### [facility] [address] [place] [address] Dr. Phill Og VAGINITIS/VAGINOSIS DNA PROB Felipe 08-20-2022 Geo species Positive Abnormal Negative [facility] Comment on above: Performed By: #### V AGINT #### [facility] [address] [place] [address] Dr. Phill Og Gardnerella vaginalis Positive Abnormal Negative [facility] Comment on above: Performed By: #### V AGINT #### [facility] [address] [place] [address] Dr. Phill Og Trichomonas vaginalis Negative Normal Negative [facility] Comment on above: Performed By: #### V AGINT #### [facility] [address] [place] [address] Dr. Phill Og HEP B SURFACE ANTIGEN SCREEN on 06-25-2022 HBsAg Screen Negative Normal Negative [facility] Comment on above: Performed By: #### H BSANS #### [facility] [address] [place] [address] Dr. Phlil Og HEPATITIS C VIRUS AB W/ REFL EX QUANTon 06-25-2022 HCV AB <0.1 Normal 0.0-0.9 [facility] Comment on above: Performed By: #### H CVPCRR #### [facility] [address] [place] [address] Dr. Phill Og Interpretation: Comment Normal [facility] Comment on above: Result Comment: Nega tive Not infected with HCV, unless recent infection is suspected or other evidence exists to indicate HCV infection. Performed By: #### H CVPCRR #### [facility] [address] [place] [address] Dr. Phill Og HIV 1 AND 2 WITH REFLEXon HIV Screen 4th Generation wRfx Non-Reactive Normal Non Reactive [facility] Comment on above: Result Comment: HIV Negative HIV-1/HIV-2 antibodies and HIV-1 p24 antigen were NOT detected. There is no laboratory evidence of HIV infection. Performed By: #### H IV12 #### [facility] [address] [place] [address] Dr. Phill Og RPR QUANTon 06-25-2022 Rapid Plasma Reagin, Quant Non-Reactive Normal NonRea< 1:1 [facility] Comment on above: Result Comment: Plea se Note: This test does not meet current guidelines for screening and diagnosis of syphilis. This test is intended for following treatment response in patients being treated for syphilis infection. To screen for syphilis infection, a reflex cascade that includes both RPR and a treponema-specific assay should be utilized, such as Treponema pallidum (Syphilis) Screening [place] (629135) or Rapid Plasma Reagin (RPR) Test With Reflex to Quantitative RPR and Confirmatory Treponema pallidum Antibodies (892119). Performed By: #### R PRQ #### [facility] [address] [place] [address] Dr. Phill Og RUBELLA AB IGGon 06-25-2022 Rubella Antibodies, IgG 6.40 index Normal Immune >0.99 [facility] Comment on above: Result Comment: Non- immune <0.90 Equivocal 0.90 - 0.99 Immune >0.99 Performed By: #### R UBIGG #### [facility] [address] [place] [address] Dr. Phill Og CBC AUTO DIFFon 06-24-2022 BASO # 0.0 103/ul Normal 0.0-0.1 [facility] Comment on above: Performed By: #### C BC #### [facility] [address] [place] [address] Dr. Phill Og Basophils/100 WBC (Bld) 0.2 % Normal 0.2-2.0 [facility] Comment on above: Performed By: #### C BC #### [facility] [address] [place] [address] Dr. Phill Og EO # 0.1 103/ul Normal 0.0-0.7 [facility] Comment on above: Performed By: #### C BC #### [facility] [address] [place] [address] Dr. Phill Og Eosinophils/100 WBC (Bld) 0.5 % Critically low 0.9-7. 0 [facility] Comment on above: Performed By: #### C BC #### [facility] [address] [place] [address] Dr. Phill Og Erythrocyte distribution wid th (RBC) [Ratio] 12.5 % Normal 11.0-15.0 [facility] Comment on above: Performed By: #### C BC #### [facility] [address] [place] [address] Dr. Phill Og Hematocrit (Bld) [Volume fraction] 45.5 % Normal 3 6.0-48.0 [facility] Comment on above: Performed By: #### C BC #### [facility] [address] [place] [address] Dr. Phill Og Hemoglobin (Bld) [Mass/Vol] 13.7 g/dL Normal 12.0-16. 0 [facility] Comment on above: Performed By: #### C BC #### [facility] [address] [place] [address] Dr. Phill Og IG # 0.04 10e3/ul Critically high 0.00-0.03 [facility] Comment on above: Performed By: #### C BC #### [facility] [address] [place] [address] Dr. Phill Og IG % 0.3 % Normal 0.0-0.5 [facility] Comment on above: Performed By: #### C BC #### [facility] [address] [place] [address] Dr. Phill Og LYMPH # 2.7 103/ul Normal 1.2-3.8 [facility] Comment on above: Performed By: #### C BC #### [facility] [address] [place] [address] Dr. Phill Og Lymphocytes/100 WBC (Bld) 21.7 % Normal 20.5-60.0 [facility] Comment on above: Performed By: #### C BC #### [facility] [address] [place] [address] Dr. Phill Og MANUAL DIFF REQ NO Normal [facility] Comment on above: Performed By: #### C BC #### [facility] [address] [place] [address] Dr. Phill Og MCH (RBC) [Entitic mass] 28.2 pg Normal 26.7-34.0 [facility] Comment on above: Performed By: #### C BC #### [facility] [address] [place] [address] Dr. Phill Og MCHC (RBC) [Mass/Vol] 30.1 g/dL Normal 29.9-35.2 [facility] Comment on above: Performed By: #### C BC #### [facility] [address] [place] [address] Dr. Phill Og MCV (RBC) [Entitic vol] 93.8 fL Normal 81.0-99.0 [facility] Comment on above: Performed By: #### C BC #### [facility] [address] [place] [address] Dr. Phill Og MONO # 0.9 103/ul Critically high 0.3-0.8 [facility] Comment on above: Performed By: #### C BC #### [facility] [address] [place] [address] Dr. Phill Og Monocytes/100 WBC (Bld) 7.1 % Normal 1.7-12.0 [facility] Comment on above: Performed By: #### C BC #### [facility] [address] [address] [address] Phill Og NEUT # 8.8 103/ul Critically high 1.4-6.5 [facility] Comment on above: Performed By: #### C BC #### [facility] [address] [address] [address] Phill Og Neutrophils/100 WBC (Bld) 70.2 % Normal 43.0-75.0 [facility] Comment on above: Performed By: #### C BC #### [facility] [address] [place] [address] Dr. Phill Og Platelet mean volume (Bld) [ Entitic vol] 10.5 fL Normal 9.5-13.5 [facility] Comment on above: Performed By: #### C BC #### [facility] [address] [place] [address] Dr. Phill Og PLT 270 103/ul Normal 150-450 [facility] Comment on above: Performed By: #### C BC #### [facility] [address] [place] [address] Dr. Phill Og RBC 4.85 106/ul Normal 4.20-5.40 [facility] Comment on above: Performed By: #### C BC #### [facility] [address] [place] [address] Dr. Phill Og WBC 12.5 103/ul Critically high 4.0-11.0 [facility] Comment on above: Performed By: #### C BC #### [facility] [address] [place] [address] Dr. Phill Og CULTURE URINEon 06-24-2022 CULTURE URINE Isolate 1 Geo albicans 50,000 cfu/mL of Normal [facility] Comment on above: Performed By: #### C T/NGNA #### [facility] [address] [place] [address] Dr. Phill Og GLYCOHEMOGLOBIN A1Con 2022 ADA RECOMMENDATION SEE BELOW Normal [facility] Comment on above: Result Comment: ADA RECOMMENDED LIMIT 4.0 - 6.0 ADA THERAPEUTIC TARGET < 7.0 ACTION SUGGESTED > 7.0 Performed By: #### A 1C #### [facility] [address] [place], [place] [address] Dr. Phill Og Glucose [Mass/Vol] 91 mg/dL Normal [facility] Comment on above: Performed By: #### A 1C #### [facility] [address] [place], [place] [address] Dr. Phill Og HbA1c (Bld) [Mass fraction] 4.8 % Normal 4.5-6.2 [facility] Comment on above: Performed By: #### A 1C #### [facility] [address] [place], [place] [address] Dr. Phill Og TYPE AND SCREENon 06-24-2022 TYPE AND SCREEN Negative Normal [facility] Comment on above: Performed By: #### C T/NGNA #### [facility] Laboratory [address] [address] [address] Pihll Og US PREG TVon 06-24-2022 US PREG TV EXAMINATION: US PREG TV HISTORY: Missed period COMPARISON: No relevant comparison available. FINDINGS: GESTATIONAL SAC: Present and normal appearing. YOLK SAC: Present and normal appearing. POLE: Present and normal appearing. CARDIAC: Present. UTERUS: Normal size and appearance. OVARIES: Right: Normal. Left: Normal. CERVIX: 4.0 cm in length and closed. CUL-DE-SAC: Normal. OTHER: None. AGE BY LMP: 9 weeks 2 days NHAN BY LMP: 01/25/2023 AGE BY US CRL: 6 weeks 4 days NHAN BY US CRL: 02/13/2023 IMPRESSION: 1. Single live intrauterine 6 weeks 4 days by today's ultrasound. Electronically authenticated by: KEV WOLFF Date: 2022-06-24 10:06 Normal [facility] US PREG TVon 06-10-2022 US PREG TV EXAMINATION: US PREG TV HISTORY: Missed period COMPARISON: No relevant comparison available. FINDINGS: GESTATIONAL SAC: Present and normal appearing. YOLK SAC: Possible small yolk sac POLE: Absent CARDIAC: Absent UTERUS: Normal size and appearance. OVARIES: Right: Not seen. Left: Corpus lutein cysts versus large incidental cyst, 3.3 cm CERVIX: 3.1 cm in length and closed. CUL-DE-SAC: Normal. OTHER: None. AGE BY LMP: 7 weeks 2 days NHAN BY LMP: 01/25/2023 AGE BY US SAC SIZE: Possible very early . NHAN BY US CRL: IMPRESSION: 1. Small fluid collection within endometrial cavity which may represent a very early . Follow-up recommended. Electronically authenticated by: KVE WOLFF Date: 2022-06-10 14:48 Normal [facility] PAP ACOG PANEL 2: 21 to 29on 04-28-2022 . . Normal [facility] ospital Comment on above: Performed By: #### [id number] #### [facility] [address] [place] [address] Dr. Phill Og Age Gdln ACOG Testing - Normal [facility] Comment on above: Performed By: #### 4 [id number] #### [facility] [address] [place] [address] Dr. Phill Og DIAGNOSIS: Comment Normal [facility] Comment on above: Result Comment: NEGA TIVE FOR INTRAEPITHELIAL LESION OR MALIGNANCY. FUNGAL ORGANISMS MORPHOLOGICALLY CONSISTENT WITH GEO SPECIES ARE PRESENT. Performed By: #### 4 [id number] #### [facility] [address] [place] [address] Dr. Phill Og Methodology: Comment Normal [facility] Comment on above: Result Comment: This liquid based ThinPrep(R) pap test was screened with the use of an image guided system. Performed By: #### 4 [id number] #### [facility] [address] [place] [address] Dr. Phill Og Note: Comment Normal [facility] Comment on above: Result Comment: The Pap smear is a screening test designed to aid in the detection of premalignant and malignant conditions of the uterine cervix. It is not a diagnostic procedure and should not be used as the sole means of detecting cervical cancer. Both false-positive and false-negative reports do occur. . Performed By: #### 4 [id number] #### [facility] [address] [place] [address] Dr. Phill Og Performed by: Comment Normal [facility] Comment on above: Result Comment: Adele Lozano, Barrel Waterer (ASCP) Performed By: #### 4 [id number] #### [facility] [address] [place] [address] Dr. Phill Og Reflex Criteria: Comment Normal [facility] Comment on above: Result Comment: The HPV DNA reflex criteria were not met with this specimen result therefore, no HPV testing was performed. . Performed By: #### 4 [id number] #### [facility] [address] [place] [address] Dr. Phill Og Specimen adequacy: Comment Normal [facility] Comment on above: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 airway is open and patent. Breathing spontaneous and unlabored with clear breath sounds bilaterally. Circulation is normal with good peripheral pulses. Skin is warm and dry and color is normal for race. TRAVEL HISTORY Travel History Coronavirus Screening: no exposure or symptoms Travel Exposure History: NO travel to International locations in the past 30 days Past Medical History: Past Medical History Reviewedyes Electronic Signatures: Zoya Small (RN) (Signed 16-Jan-2020 12:17) Authored: Triage, Past Medical History Last Updated: 16-Jan-2020 12:17 by Zoya Small (RN) Normal [facility] UA MICROSCOPICon 01-16-2020 BACTERIA 1+ /HPF Abnormal [facility] Comment on above: Performed By: #### U AMIC #### [place] [address] MUCUS 3+ /LPF Normal [facility] Comment on above: Performed By: #### U AMIC #### [place] [address] RBC 3 /HPF Normal 0-5 [facility] Comment on above: Performed By: #### U AMIC #### [place] [address] SQUAMOUS EPITH. CELLS 4 /HPF Normal [facility] Comment on above: Performed By: #### U AMIC #### [place] [address] WBC 7 /HPF Abnormal 0-5 [facility] Comment on above: Performed By: #### U AMIC #### [place] [address] URINALYSISon 01-16-2020 Appearance (U) HAZY Normal CLEAR [facility] Comment on above: Performed By: #### U A #### [address] [place] [address] Bilirubin (U) [Mass/Vol] Negative Normal NEGATIVE [facility] Comment on above: Performed By: #### U A #### [address] [address] BLOOD Negative Normal NEGATIVE [facility] Comment on above: Performed By: #### U A #### [address] [address] Color (U) Yellow Normal STRAW,YELLOW [facility] Comment on above: Performed By: #### U A #### [address] [address] Glucose [Mass/Vol] Negative Normal NEGATIVE [facility] Comment on above: Performed By: #### U A #### [address] [address] Ketones Ql (U) Negative Normal NEGATIVE [facility] Comment on above: Performed By: #### U A #### [place] [id number] Leukocyte esterase Test stri p Ql (U) Negative Normal NEGATIVE [facility] Comment on above: Performed By: #### U A #### [address] [address] Nitrite Ql (U) Positive Normal NEGATIVE [facility] Comment on above: Performed By: #### U A #### [address] [address] pH (Bld) 5.0 Normal 5.0 - 8.0 [facility] Comment on above: Performed By: #### U A #### [address] [address] Protein (U) [Mass/Vol] Negative Normal NEGATIVE [facility] Comment on above: Performed By: #### U A #### [address] [address] Specific gravity (U) [Rel density] 1.019 Normal 1.005 - 1.035 [facility] Comment on above: Performed By: #### U A #### [address] [address] Urobilinogen Qn (U) <2.0 Normal 0.0 - 1.9 [facility] Comment on above: Performed By: #### U A #### [address] [address] Urinalysison 01-16-2020 Appearance (U) HAZY CLEAR [facility] [employer] Work Phone: Comment on above: Ordering Provider: Elli TONG [address] Color (U) Yellow See Below [facility] [employer] Work Phone: Comment on above: Reference Range: STR AW,YELLOW Ordering Provider: Elli TONG [address]573 Glucose Ql (U) Negative NEGATIVE [facility] [employer] Work Phone: Comment on above: Ordering Provider: Elli TONG [address] Ketones Ql (U) Negative NEGATIVE [facility] [employer] Work Phone: Comment on above: Ordering Provider: Elli TONG [address]79[address] Leukocyte esterase Test stri p Ql (U) Negative NEGATIVE [facility] [employer] Work Phone: Comment on above: Ordering Provider: Elli TONG [address]7480 pH (U) 5.0 [pH] 5.0 - 8.0 [facility] [employer] Work Phone: Comment on above: Ordering Provider: Elli TONG [address] Protein (U) [Mass/Vol] [facility] [employer] Work [facility]: Comment on above: Ordering Provider: Elli TONG [address]794 RBC (U) [#/Vol] Negative NEGATIVE [facility] [employer] Work Phone: Comment on above: Ordering Provider: Elli TONG 557[address] Specific gravity (U) [Rel density] 1.019 1 S ee Below [facility] [employer] Work Phone: Comment on above: Reference Range: 1.0 05 - 1.035 Ordering Provider: Elli TONG 48755 Urinalysis Positive NEGATIVE [facility] [employer] Work Phone: Comment on above: Ordering Provider: Elli TONG 47560 Urinalysis <2.0 0.0 - 1.9 [facility] [employer] Work Phone: Comment on above: Ordering Provider: Elli TONG [address]0866 Urinalysis Negative NEGATIVE [facility] [employer] Work Phone: Comment on above: Ordering Provider: Elli TONG [address] Urinalysis, Microscopicon Bacteria LM.HPF (Urine sed) [#/Area] 1+ Abnormal [facility] [employer] Work Phone: Comment on above: Ordering Provider: Elli TONG [address]39[address] Urinalysis, Microscopic 3+ U [facility] [employer] Work Phone: Comment on above: Ordering Provider: Elli Osman445 Urinalysis, Microscopic 4 {/HPF} U [facility] [employer] Work Phone: Comment on above: Ordering Provider: Elli TONG [address]6735 Urinalysis, Microscopic 3 {/HPF} 0-5 U [facility] [employer] Work Phone: Comment on above: Ordering Provider: Elli TONG [address] Urinalysis, Microscopic 7 {/HPF} Abnormal 0-5 U [facility] [employer] Work Phone: Comment on above: Ordering Provider: Elli TONG [address]94[address] Primary Care Visit (Text/For ms)on 07-20-2019 Primary Care Visit (Text/Forms) Diagnoses/Problems Assessed Gastroesophageal reflux disease without esophagitis (530.81) (K21.9) IBS (irritable bowel syndrome) (564.1) (K58.9) Abdominal pain (789.00) (R10.9) Anxiety, generalized (300.02) (F41.1) Orders Abdominal pain IO UA (automated w/o microscopy); Status:Resulted - Requires Verification,Retrospective By Protocol Authorization; Done: [id number] 03:15PM Anxiety, generalized Start: buPROPion HCl ER (XL) 150 MG Oral Tablet Extended Release 24 Hour; TAKE 1 TABLET Every morning Gastroesophageal reflux disease without esophagitis Start: Pantoprazole Sodium 40 MG Oral Tablet Delayed Release; take 1 tablet by mouth once daily IBS (irritable bowel syndrome) Start: Dicyclomine HCl - 20 MG Oral Tablet; TAKE 1 TABLET 4 times daily PRN abdominal cramping Chief Complaint 3 wk ck bl hand warts discuss abd pain History of Present Illness warts gone abdm pain and GERD - saw GI doc last year and ECG. in [facility] - will need old records. Dr bhavya Lewis [phone]. zantac did not help. IBS - cramping pain is on off. RUQ and LLQ areas. still gets heartburn. UA today - trace leuks. no urinary symptoms. change RX from once daily in PM SR to ER 15 mg in AM. Since more anxiety shoud it be an SSRI? on OV set yet. Review of Systems Gastrointestinal: abdominal pain, heartburn, nausea, bloating, dysphagia and vomiting, but no constipation, no diarrhea and no blood in stools. Genitourinary: normal urine frequency, no dysuria, no urinary urgency, no blood in urine. Integumentary: no skin lesions and no rashes. Active Problems Problems Anxiety, generalized (300.02) (F41.1) Common wart (078.19) (B07.8) Surgical History Problems No history of surgery Family History Mother Family history of hypertension (V17.49) (Z82.49) Father Family history of hypertension (V17.49) (Z82.49) Social History Problems Consumes alcohol occasionally (V49.89) (Z78.9) Former smoker (V15.82) (Z87.891) No advance directives (V49.89) (Z78.9) Current Meds Medication NameInstruction buPROPion HCl ER (SR) 100 MG Oral Tablet Extended Release 12 HourTAKE 1 TABLET DAILY. Setlakin 0.15-0.03 MG Oral TabletTAKE 1 TABLET DAILY. Allergies Medication No Known Drug Allergies Vitals Vital Signs Recorded: [id number] 03:02PM Heart Rate: 97 Systolic: 110 Diastolic: 72 Height: 5 ft 4 in Weight: 152 lb BMI Calculated: 26.09 BSA Calculated: 1.74 O2 Saturation: 98 Physical Exam General: Alert and oriented, No acute distress. Ambulation status: With steady gait. Appearance: Well nourished, Calm. Behavior: Cooperative. Respiratory: Lungs are clear to auscultation, Respirations are non-labored, Breath sounds are equal, Symmetrical chest wall expansion. Cardiovascular: Normal rate, Regular rhythm, No murmur, No gallop. Integumentary: Warm, Dry, Ferdinand, Intact. Psychiatric: Cooperative, Appropriate mood AND affect, Normal judgment. abdm - mild TTP RUQ and peigastric areas. Signatures Electronically signed by : Keshav Irwin, ; Jul 20 2019 3:37PM EST (Author) Normal [facility] Primary Care Visit (Text/For ms)on 06-29-2019 Primary Care Visit (Text/Forms) Diagnoses/Problems Assessed Common wart (078.19) (B07.8) Orders SocHx: Former smoker Tobacco Use Screening; Status:Complete; Done: 29Jun2019 Patient Discussion/Summary OV 3 weeks - warts hand. Chief Complaint wants warts on hands removed History of Present Illness mulitple common warts both habds for years. cryo each lesion x 10 seconds without complication. Review of Systems Constitutional: not feeling tired, no fever and no chills. Gastrointestinal: no nausea and no vomiting. Integumentary: skin lesion and itching, but no rashes. Surgical History Problems No history of surgery Family History Mother Family history of hypertension (V17.49) (Z82.49) Father Family history of hypertension (V17.49) (Z82.49) Social History Problems Consumes alcohol occasionally (V49.89) (Z78.9) Former smoker (V15.82) (Z87.891) No advance directives (V49.89) (Z78.9) Current Meds Medication NameInstruction buPROPion HCl ER (SR) 100 MG Oral Tablet Extended Release 12 HourTAKE 1 TABLET DAILY. Setlakin 0.15-0.03 MG Oral TabletTAKE 1 TABLET DAILY. Allergies Medication No Known Drug Allergies Vitals Vital Signs Recorded: 29Jun2019 03:01PM Heart Rate: 78 Systolic: 110, LUE Diastolic: 80, LUE Blood Pressure Cuff Size: Adult Height: 5 ft 5 in Weight: 149 lb 0.4 oz BMI Calculated: 24.8 BSA Calculated: 1.75 Physical Exam General: Alert and oriented, No acute distress. Ambulation status: With steady gait. Appearance: Well nourished, Calm. Behavior: Cooperative. Respiratory: Lungs are clear to auscultation, Respirations are non-labored, Breath sounds are equal, Symmetrical chest wall expansion. Cardiovascular: Normal rate, Regular rhythm, No murmur, No gallop. Integumentary: Warm, Dry, Ferdinand, Intact. multiple rasied lesions both hands c/w warts. Psychiatric: Cooperative, Appropriate mood AND affect, Normal judgment. Signatures Electronically signed by : Keshav Irwin MD,; Jun 29 2019 3:27PM EST (Author) Normal [facility] US Breast Unilateral Lt Comp leteon 05-11-2018 US Breast Unilateral Lt Complete Exam Date/Time: 05/09/2018 09:43 EST Reason for Exam: BREAST LUMPS , BILATERAL Report IMPRESSION: 1. 4 MM CYST IN 9:00 POSITION OF THE LEFT BREAST. 2. 9 X 13 X 7 MM WELL-CIRCUMSCRIBED NODULE IN 3:00 POSITION OF THE LEFT BREAST AND THIS MOST LIKE REPRESENTS A BENIGN NODULE SUCH A FIBROADENOMA. CLINICAL HISTORY: PAINFUL LEFT BREAST LUMPS COMPARISON: NONE AVAILABLE COMMENT: LEFT BREAST ULTRASOUND SCAN Multiple longitudinal and transverse ultrasound scans were obtained at all clock face positions and in the retroareolar region of the left breast demonstrate a 4 mm cyst in the 9:00 position of the left breast. Furthermore, there is an approximately 9 x 13 x 7 mm well-circumscribed vascular nodule in the 3:00 position of the left breast. This well-circumscribed vascular nodule is wider than tall and most like represents a benign nodule such as a fibroadenoma. If there is persistent clinical concern regarding this vascular nodule in the 3:00 position then biopsy may be undertaken. FINAL REPORT Dictated: 05/11/2018 1:57 pm Sam Escobedo MD Signed (Electronic Signature): 05/11/2018 1:57 pm Signed by: Sam Escobedo MD Transcribed by: AMI Technologist: SERGE Gao [facility] US Breast Unilateral Rt Comp leteon 05-11-2018 US Breast Unilateral Rt Complete Exam Date/Time: 05/09/2018 09:42 EST Reason for Exam: BREAST LUMPS , BILATERAL Report IMPRESSION: NEGATIVE RIGHT BREAST ULTRASOUND SCAN CLINICAL HISTORY: PAINFUL RIGHT BREAST LUMPS COMPARISON: NONE. COMMENT: RIGHT BREAST ULTRASOUND SCAN Multiple longitudinal and transverse ultrasound scans were obtained at all clock face positions and in the retroareolar region of the right breast demonstrate no evidence of a nodule, mass or cysts in the right breast. The right breast ultrasound scan appears negative. FINAL REPORT Dictated: 05/11/2018 1:51 pm Sam Escobedo MD Signed (Electronic Signature): 05/11/2018 1:51 pm Signed by: Sam Escobedo MD Transcribed by: AMI Technologist: SERGE Gao [facility] Coding Summary.on 05-10-2018 Coding Summary. CODING DATE: 018 FINAL [facility] STATUS: Home (Routine DC) PAYOR: Jamil APC DESCRIPTION 5522 Level 2 Imaging without Contrast ADMIT DX: REASON FOR VISIT DX: N63.0 Unspecified lump in unspecified breast FINAL DX: PRINCIPAL: N63.0 Unspecified lump in unspecified breast SECONDARY: PYMT PROC APC STAT DESCRIPTION DOCTOR NAME DATE NOTE: The code number assigned matches the documented diagnosis and / or procedure in the patient's chart. However, the narrative phrase printed from the coding software may appear abbreviated, or result in slightly different terminology. Coded By: Leah Lemon CphT Date Saved: 05/10/2018 08:56 am Normal [facility] C Urineon 05-05-2018 Bacteria identified Cx Nom (U) Microbiology PROCEDURE: Urine Culture [R1] SOURCE: U CleanCatch BODY SITE: COLLECTED DATE/TIME: 05/03/2018 06:10 EST RECEIVED DATE/TIME: 05/03/2018 10:31 EST START DATE/TIME: 05/03/2018 10:31 EST FREE TEXT SOURCE: Med DIALLO, Janes Jovel MD, Janes FINAL REPORTS Final Report [] Verified Date/Time: 05/05/2018 11:25 EST >100,000 cfu/ml Escherichia coli SUSCEPTIBILITY RESULTS LEGEND: S=Susceptible, N/R=Not Reported, Blank=Data not available, or drug not advisable or tested, I=Intermediate, ESBL=Extended spectrum beta-lactamase, R=Resistant, TFG=Thymidine-dependent strain, ARCADIO=Beta-lactamase positive, EVETTE=mcg/m;(mg/L), S*=Predicted susceptible interp, R*=Predicted resistant interp EC Antibiotic EVETTE Dilutn EVETTE Interp Amikacin <=16 S Amoxicillin/ <=8/4 S Clavulanate Ampicillin <=8 S Ampicillin/ <=8/4 S Sulbactam Cefazolin <=8 S Cefepime <=4 S Cefotaxime <=2 S Ceftazidime <=1 S Ceftriaxone <=8 S Cefuroxime <=4 S Ciprofloxacin <=1 S Ertapenem <=2 S Gentamicin <=4 S Imipenem <=1 S Levofloxacin <=2 S Nitrofurantoin <=32 S Piperacillin/ <=16 S Tazobactam Tetracycline <=4 S Tobramycin <=4 S Trimethoprim/ <=2/38 S Sulfa Performing Locations R1: This test was performed at: [facility], [address] [place] [address], [address] [phone] [facility] Comment on above: Performed By: #### 1 [id number], [id number] ####[address] [place] [address] Coding Summary.on 05-04-2018 Coding Summary. CODING DATE: 018 FINAL [facility] STATUS: Home (Routine DC) PAYOR: Jamil APC DESCRIPTION 5571 Level 1 Imaging with Contrast 5004 Level 4 Type A ED Visits 5637 Level 3 Drug Administration 5691 Level 1 Drug Administration ADMIT DX: REASON FOR VISIT DX: R10.31 Right lower quadrant pain FINAL DX: PRINCIPAL: N10 Acute pyelonephritis SECONDARY: Z72.0 Tobacco use PYMT PROC APC STAT DESCRIPTION DOCTOR NAME DATE NOTE: The code number assigned matches the documented diagnosis and / or procedure in the patient's chart. However, the narrative phrase printed from the coding software may appear abbreviated, or result in slightly different terminology. Coded By: Beckie Campos Date Saved: 05/04/2018 10:10 am Normal [facility] Coding Summary. CODING DATE: 018 FINAL [facility] STATUS: Home (Routine DC) PAYOR: Jamil APC DESCRIPTION 5571 Level 1 Imaging with Contrast ADMIT DX: REASON FOR VISIT DX: R10.31 Right lower quadrant pain FINAL DX: PRINCIPAL: N10 Acute pyelonephritis SECONDARY: Z72.0 Tobacco use PYMT PROC APC STAT DESCRIPTION DOCTOR NAME DATE NOTE: The code number assigned matches the documented diagnosis and / or procedure in the patient's chart. However, the narrative phrase printed from the coding software may appear abbreviated, or result in slightly different terminology. Coded By: Beckie Campos Date Saved: 05/04/2018 10:10 am Normal [facility] Auto Diffon 05-03-2018 Basophils #/vol (Bld) 0.4 % Normal 0.0-2.[address] [facility] Comment on above: Order Comment: Order Added by Discern Expert. Performed By: #### 2 463155, 3020964, 8626270, 7557858, 7161380, 31106469, 33576683 ####[facility] [address] [place] [address] Basophils/Leukocytes Auto Pu re number fraction (Bld) 0.1 E9/L Normal 0.0-0.2 [facility] Comment on above: Order Comment: Order Added by Discern Expert. Performed By: #### 2 194430, 1574458, 4126909, 9893780, 0747449, 52605500, 17998264 ####[facility] [address] [place] [address] Eosinophils/100 WBC (Bld) 0.8 % Normal 0.0-8.0 [facility] Comment on above: Order Comment: Order Added by Discern Expert. Performed By: #### 2 945910, 1036567, 6415570, 6106985, 7611051, 15141672, 18010194 ####[facility] [address] [place] [address] Eosinophils/Leukocytes Auto Pure number fraction (Bld) 0.1 E9/L Normal 0.0-0.5 [facility] Comment on above: Order Comment: Order Added by Discern Expert. Performed By: #### 2 596494, 4011392, 0605710, 0187949, 7656038, 18398719, 13843774 ####[address] [place] [address] Lymphocytes/100 WBC (Bld) 23.2 % Normal 14.0-50.0 [facility] Comment on above: Order Comment: Order Added by Discern Expert. Performed By: #### 2 863516, 8563892, 4575371, 8665141, 8794591, 32764897, 63961387 ####[facility] [address] [place] [address] Lymphocytes/Leukocytes Auto Pure number fraction (Bld) 3.8 E9/L Normal 1.0-4.0 [facility] Comment on above: Order Comment: Order Added by Discern Expert. Performed By: #### 2 895875, 4334930, 2968231, 2170383, 0578884, 29227674, 50240907 ####[facility] [address] [place] [address] Monocytes/100 WBC (Bld) 8.7 % Normal 4.0-14.0 [facility] Comment on above: Order Comment: Order Added by [place] Expert. Performed By: #### 2 867890, 2391971, 3634469, 2537090, 6087142, 85331021, 49466171 ####[address] [place] [address] Monocytes/Leukocytes Auto Pu re number fraction (Bld) 1.4 E9/L High 0.2-1.0 [facility] Comment on above: Order Comment: Order Added by Discern Expert. Performed By: #### 2 446465, 6141371, 2085531, 8896635, 0622804, 24297504, 14235866 ####[facility] [address] [place] [address] Neutrophils/100 WBC (Bld) 66.9 % Normal 36.0-75.0 [facility] Comment on above: Order Comment: Order Added by Discern Expert. Performed By: #### 2 252205, 8609066, 6331090, 7720355, 3917984, 13164565, 96442082 ####[facility] [address] [place] [address] Neutrophils/Leukocytes Auto Pure number fraction (Bld) 10.8 E9/L High 2.0-7.5 [facility] Comment on above: Order Comment: Order Added by Discern Expert. Performed By: #### 2 078056, 3072671, 7928796, 6479815, 5949431, 29519032, 29711099 ####[facility] [address] [place] [address] B hCG Qualon 05-03-2018 HCG.beta subunit Qn Negative Normal [facility] Comment on above: Performed By: #### 2 508440, 4366938, 2311445, 7094520, 4504815, 47281936, 96783124 ####[facility] [address] [place] [address] BMPon 05-03-2018 Creatinine mass conc 0.8 mg/dL Normal 0.5-1.3 [facility] Comment on above: Performed By: #### 2 295779, 8121550, 3622206, 5140516, 7549225, 36342551, 50223985 ####[facility] [address] [place] [address] Urea nitrogen mass conc 9 mg/dL Normal 5-21 F [facility] Comment on above: Performed By: #### 2 637179, 3417383, 4345442, 7879796, 1024885, 88644187, 55084933 ####[facility] [address] [place] [address] Urea nitrogen/Creatinine mass ratio 11 No Units Normal 10-20 [facility] Comment on above: Performed By: #### 2 983243, 7616048, 3306645, 5543240, 8998044, 19683491, 68128455 ####[facility] [address] [place] [address] Anion gap molar conc 9 mmol/L Normal 6-16 [facility] Comment on above: Performed By: #### 2 929633, 1839030, 6647910, 2720608, 3939179, 56332367, 53029116 ####[facility] [address] [place] [address] Calcium mass conc 8.9 mg/dL Normal 8.9-11.1 [facility] Comment on above: Performed By: #### 2 293027, 6415777, 7791747, 1231546, 4815008, 55160864, 07431004 ####[facility] [address] [place] [address] Chloride molar conc 102 mmol/L Normal 101-111 [facility] Comment on above: Performed By: #### 2 697919, 8799346, 9805812, 1424909, 6390058, 05230391, 89004560 ####[facility] [address] [place] [address] CO2 molar conc 28 mmol/L Normal 21-31 [facility] Comment on above: Performed By: #### 2 329766, 2284382, 2079171, 8364791, 9353215, 01222513, 87237918 ####[facility] [address] [place] [address] Glucose mass conc 109 mg/dL Normal 55-199 [facility] Comment on above: Result Comment: If t his glucose result represents a fasting glucose, interpretation should refer to the following reference range: 55-99 mg/dL Performed By: #### 2 843561, 6628242, 3883078, 6686573, 2017179, 82462088, 22786054 ####[facility] [address] [place] [address] Potassium molar conc 2.9 mmol/L Low 3.5-5.3 [facility] Comment on above: Performed By: #### 2 037269, 5596502, 2116978, 9282139, 6915517, 10697850, 16449629 ####[facility] [address] [place] [address] Sodium molar conc 136 mmol/L Normal 135-145 [facility] Comment on above: Performed By: #### 2 280662, 6621349, 3663301, 6071293, 6719666, 19737678, 51597565 ####[facility] [address] [place] [address] CBC w/ Auto Diffon 8 Erythrocyte distribution wid th Ratio (RBC) 13.4 % Normal 10.9-14.2 [facility] Comment on above: Performed By: #### 2 900845, 5414190, 3817543, 2039698, 4503765, 06444422, 94829103 ####[facility] [address] [place] [address] Hematocrit Volume Fraction (Bld) 41.1 % Normal 34. 0-46.0 [facility] Comment on above: Performed By: #### 2 730527, 5072997, 4581328, 4247318, 9475127, 65031219, 11503803 ####[facility] [address] [place] [address] Hemoglobin mass conc (Bld) 13.9 g/dL Normal 12.0-16.0 [facility] Comment on above: Performed By: #### 2 997500, 0134151, 7174628, 5819492, 9233375, 98394025, 46082330 ####[facility] [address] [place] [address] MCH Entitic mass (RBC) 29.4 pg Normal 27.0-34.0 [facility] Comment on above: Performed By: #### 2 835802, 7603325, 1745648, 0748391, 6085220, 40102598, 00040052 ####[address] [address] MCHC mass conc (RBC) 33.7 g/dL Normal 31.4-39.3 [facility] Comment on above: Performed By: #### 2 277787, 1501607, 7183649, 6045572, 9404749, 40898435, 35569418 ####[address] [address] MCV Entitic volume (RBC) 87.2 fL Normal 80.0-100.0 [facility] Comment on above: Performed By: #### 2 139870, 0405734, 7376024, 4982963, 4210499, 70509528, 02639269 ####[address] [address] Platelet mean volume Entitic volume (Bld) 8.0 fL Normal 6.4-10.8 [facility] Comment on above: Performed By: #### 2 953407, 0908197, 8435337, 7046882, 2198506, 18933203, 90697622 ####[address] [address] Platelets #/vol (Bld) 270.0 E9/L Normal 150.0-500.0 [facility] Comment on above: Performed By: #### 2 773103, 2877100, 3546438, 9658619, 2586487, 23526302, 20224163 ####[address] [address] RBC #/vol (Bld) 4.7 E12/L Normal 4.3-5.9 [facility] Comment on above: Performed By: #### 2 039623, 4446876, 6468868, 7943303, 8774285, 85206390, 10856311 ####[facility] [address] [place] [address] WBC corrected for nucl RBC A uto #/vol (Bld) 16.1 E9/L High 4.0-11.0 [facility] Comment on above: Result Comment: Slid e reviewed by AC. Performed By: #### 2 735747, 0180869, 2131756, 6214219, 9937283, 73137655, 30557556 ####[facility] [address] [place] [address] ED Clinical Summaryon 2017 ED Clinical Summary (Inserted Image. Violetta ble to display) [address] [address] ED Clinical Summary Person Information Name: YAEL TALLEY Mandy Vela/[facility] Age: 18 Years : 2000 12:00 AM Sex: Female Language: Citizen Of [place] PCP: Jolynn VILLA MD Marital Status: Single Visit Id: Visit Reason: Back pain; Nausea; Abdominal pain; PAIN RIGHT SIDE Speciality: Acuity: 3 Enc Type: Emergency Med Service: Emergency Arrival: 05/03/2018 5:43 AM Discharge: 05/03/2018 9:57 AM LOS: 000 04:14 Checkin: 05/03/2018 5:43 AM Checkout: 05/03/2018 9:57 AM Dispo Type: Home (Routine DC) EVENTS: Event Name Event Status Request Date/Time Start Date/Time Complete Date/Time Arrive Complete 05/03/2018 5:43 AM 05/03/2018 5:43 AM 05/03/2018 5:43 AM Document Home Meds Complete 05/03/2018 5:43 AM 05/03/2018 6:23 AM 05/03/2018 6:23 AM Triage Complete 05/03/2018 5:43 AM 05/03/2018 5:57 AM 05/03/2018 5:57 AM Bed Assign Complete 05/03/2018 5:57 AM 05/03/2018 5:57 AM 05/03/2018 5:[address] Exam Complete 05/03/2018 5:57 AM 05/03/2018 6:45 AM 05/03/2018 6:45 AM RN Exam Complete 05/03/2018 5:57 AM 05/03/2018 6:23 AM 05/03/2018 6:23 AM Pending Labs Complete 05/03/2018 6:02 AM 05/03/2018 6:41 AM Lab Complete 05/03/2018 6:02 AM 05/03/2018 6:41 AM Urine Collect Complete 05/03/2018 6:02 AM 05/03/2018 6:41 AM Pending Labs Complete 05/03/2018 6:14 AM 05/03/2018 6:14 AM 05/03/2018 6:35 AM Lab Complete 05/03/2018 6:14 AM 05/03/2018 6:14 AM 05/03/2018 6:35 AM Pending Labs Collected 05/03/2018 6:25 AM 05/03/2018 6:25 AM Lab Collected 05/03/2018 6:25 AM 05/03/2018 6:25 AM Pending Labs Complete 05/03/2018 6:29 AM 05/03/2018 6:29 AM 05/03/2018 6:29 AM Lab Complete 05/03/2018 6:29 AM 05/03/2018 6:29 AM 05/03/2018 6:29 AM Registration Complete 05/03/2018 6:45 AM 05/03/2018 7:19 AM 05/03/2018 7:19 AM Meds Admin Complete 05/03/2018 6:46 AM 05/03/2018 6:[address] Complete 05/03/2018 6:46 AM 05/03/2018 7:18 AM 05/03/2018 7:52 AM Meds Admin Complete 05/03/2018 6:48 AM 05/03/2018 8:48 AM Pending Labs Complete 05/03/2018 6:48 AM 05/03/2018 7:17 AM Lab Complete 05/03/2018 6:48 AM 05/03/2018 7:17 AM Pending Labs Request 05/03/2018 6:50 AM Lab Request 05/03/2018 6:50 AM Urine Collect Request 05/03/2018 6:[address] Exam Complete 05/03/2018 7:05 AM 05/03/2018 7:05 AM 05/03/2018 7:05 AM Reg Complete Request 05/03/2018 7:19 AM Reg Bed Request Complete 05/03/2018 7:19 AM 05/03/2018 7:19 AM 05/03/2018 7:19 AM Discharge Complete 05/03/2018 8:52 AM 05/03/2018 9:58 AM 05/03/2018 9:58 AM Transfer Complete 05/03/2018 9:58 AM 05/03/2018 9:58 AM 05/03/2018 9:58 AM ADDRESS: [address] [place] [address] [address] [facility] [address] PHYS DOC NOTES: MEDICAL INFORMATION: Prescriptions Given: Prescription Display acetaminophen-hydrocodone (Monetta 325 mg-5 mg oral tablet) 1 tab(s), Oral, q6hr for pain, 9 tab(s), Refill(s) 0 ciprofloxacin (Cipro 500 mg Tab) 500 mg = 1 tab(s), Oral, BID, Take one tab by mouth twice a day for seven days, # 14 tab(s), Refills(s) 0 ibuprofen (ibuprofen 400 mg Tab) 400 mg = 1 tab(s), Oral, q6hr, PRN as needed for pain/fever, # 20 tab(s), Refills(s) 0 ondansetron (Zofran ODT 8 mg Tab-Dis) 8 mg = 1 tab(s), Oral, q8hr, PRN Nausea, # 6 tab(s), Refills(s) 1 PATIENT EDUCATION INFORMATION: Instructions: Cholelithiasis, Bbgi-rd-Yyub; Pyelonephritis, Adult, Wnxu-oc-Kfdn Follow up: With: Address: When: Jolynn VILLA [address] [place], [place] [address] [address] [address] Business (1) Within 3 to 5 days Comments: Call physician if symptoms worsen Return to ED if symptoms worsen DIAGNOSIS: 1:Rt flank pain; 2:Urinary tract infection; 3:Acute pyelonephritis Normal [facility] ED Note-Physicianon 05-03-20 ED Note-Physician Basic Information Time Seen: Janes Jovel MD 05/03/2018 06:[address] Jovel at 0700 hours. Chief Complaint Pt reports at approx 0500 this morning pain woke her up located in her right lower quadrant of her abdomen. Pt reports nausea, no vomiting or fevers. Pt sts intermittent lower baominal pain for the last few days but pt reports this pain is new. PT denies Physical Exam Vitals & Measurements T: 36.8 ?C (Oral) HR: 105(Peripheral) RR: 18 BP: 114/75 SpO2: 98% HT: 165 cm WT: 67 kg BMI: 24.61 Patient appears comfortable. Patient appears well-hydrated and nontoxic. Patient is in no distress. Abdominal examination is benign. Medical Decision Making Findings are consistent with a diagnosis of acute pyelonephritis. Patient's examination and laboratories do not suggest cholelithiasis or cholecystitis. Patient will be discharged home. Assessment/Plan 1. Rt flank pain 2. Urinary tract infection 3. Acute pyelonephritis Medications Administered Given NS 1000 ml Bolus 1,000 mL, 1000 mL, IV Piggyback cefTRIAXone 1 gram IVPB 1 gram + Sodium Chloride 0.9% IV Sofie 50 mL Minibag Plus [F] 50 mL, IV Piggyback morphine 2 mg/mL Inj, 2 mg, IV Push Zofran 4 mg/2 mL Injection, 4 mg, IV Push Disposition Plan Patient Discharge Condition Stable/improved Discharge Disposition Home Discharge Prescription List Prescriptions Cipro 500 mg Tab, 500 mg= 1 tab(s), Oral, BID ibuprofen 400 mg Tab, 400 mg= 1 tab(s), Oral, q6hr, PRN Monetta 325 mg-5 mg oral tablet, 1 tab(s), Oral, q6hr, PRN Zofran ODT 8 mg Tab-Dis, 8 mg= 1 tab(s), Oral, q8hr, PRN, 1 refills Follow-up With When Contact Information Jolynn VILLA Within 3 to 5 days [address] [facility] [address] [place] [id number] Business (1) Additional Instructions: Call physician if symptoms worsen Return to ED if symptoms worsen Patient Education Cholelithiasis, Rolc-tb-Bdta Pyelonephritis, Adult, Jhab-qe-Qodw Problem List/Past Medical History Ongoing Smoker Historical exercise induced scoliosis Procedure/Surgical History Denies. Medications Inpatient NS 1000 ml Bolus 1,000 mL, 1000 mL, IV Piggyback Home Implanon 68 mg subcutaneous implant, 68 mg, SubCutaneous, Once Misc Medication Allergies No Known Allergies Social History Alcohol - Denies Alcohol Use, 05/26/2015 Current, 05/03/2018 Substance Abuse - Denies Substance Abuse, 05/26/2015 Current, 05/03/2018 Tobacco - Denies Tobacco Use, 05/26/2015 Never (less than 100 in lifetime) Tobacco Use:. Never Smokeless Tobacco Use:., 05/03/2018 Lab Results WBC: 16.1 E9/L High (05/03/18 06:07:00 EST) RBC: 4.7 E12/L (05/03/18 06:07:00 EST) Hgb: 13.9 gm/dL (05/03/18 06:07:00 EST) Hct: 41.1 % (05/03/18 06:07:00 EST) MCV: 87.2 fL (05/03/18 06:07:00 EST) MCH: 29.4 pg (05/03/18 06:07:00 EST) MCHC: 33.7 gm/dL (05/03/18 06:07:00 EST) RDW: 13.4 % (05/03/18 06:07:00 EST) Platelet: 270 E9/L (05/03/18 06:07:00 EST) MPV: 8 fL (05/03/18 06:07:00 EST) Neutro Auto: 66.9 % (05/03/18 06:07:00 EST) Lymph Auto: 23.2 % (05/03/18 06:07:00 EST) [place] Auto: 8.7 % (05/03/18 06:07:00 EST) Eos Auto: 0.8 % (05/03/18 06:07:00 EST) Basophil Auto: 0.4 % (05/03/18 06:07:00 EST) Neutro Absolute: 10.8 E9/L High (05/03/18 06:07:00 EST) Lymph Absolute: 3.8 E9/L (05/03/18 06:07:00 EST) [place] Absolute: 1.4 E9/L High (05/03/18 06:07:00 EST) Eos Absolute: 0.1 E9/L (05/03/18 06:07:00 EST) Basophil Absolute: 0.1 E9/L (05/03/18 06:07:00 EST) Glucose Lvl: 109 mg/dL (05/03/18 06:07:00 EST) BUN: 9 mg/dL (05/03/18 06:07:00 EST) Creatinine: 0.8 mg/dL (05/03/18 06:07:00 EST) eGFR: >60 (05/03/18 06:07:00 EST) eGFR AA: >60 (05/03/18 06:07:00 EST) BUN/Creat Ratio: 11 (05/03/18 06:07:00 EST) Sodium Lvl: 136 mmol/L (05/03/18 06:07:00 EST) Potassium Lvl: 2.9 mmol/L Low (05/03/18 06:07:00 EST) Chloride: 102 mmol/L (05/03/18 06:07:00 EST) CO2: 28 mmol/L (05/03/18 06:07:00 EST) AGAP: 9 mEq/L (05/03/18 06:07:00 EST) Calcium Lvl: 8.9 mg/dL (05/03/18 06:07:00 EST) Alk Phos: 61 Int._Unit/L (05/03/18 06:07:00 EST) ALT: 11 Int._Unit/L (05/03/18 06:07:00 EST) AST: 14 Int._Unit/L (05/03/18 06:07:00 EST) Total Protein: 7.2 gm/dL (05/03/18 06:07:00 EST) Albumin Lvl: 4.3 gm/dL (05/03/18 06:07:00 EST) Globulin: 2.9 gm/dL (05/03/18 06:07:00 EST) A/G Ratio: 1.5 (05/03/18 06:07:00 EST) Bili Total: 1.1 mg/dL (05/03/18 06:07:00 EST) Bili Direct: 0.2 mg/dL (05/03/18 06:07:00 EST) Bili Indirect: 0.9 mg/dL (05/03/18 06:07:00 EST) Lipase Lvl: 22 unit/L (05/03/18 06:07:00 EST) Lactic Acid Lvl: 7.2 mg/dL (05/03/18 06:56:00 EST) UA Spec Desc: Clean Catch (05/03/18 06:10:00 EST) UA Color: Yellow2 (05/03/18 06:10:00 EST) UA Clarity: Cloudy2 Abnormal (05/03/18 06:10:00 EST) UA Spec Grav: 1.025 (05/03/18 06:10:00 EST) UA pH: 6.0 (05/03/18 06:10:00 EST) UA Protein: 1+ Abnormal (05/03/18 06:10:00 EST) UA Glucose: NEGATIVE1 (05/03/18 06:10:00 EST) UA Ketones: NEGATIVE1 (05/03/18 06:10:00 EST) UA Bili: NEGATIVE1 (05/03/18 06:10:00 EST) UA Blood: 2+ Abnormal (05/03/18 06:10:00 EST) UA Nitrite: Positive1 Abnormal (05/03/18 06:10:00 EST) UA Urobilinogen: 0.2 (05/03/18 06:10:00 EST) UA Leuk Est: 2+ Abnormal (05/03/18 06:10:00 EST) UA RBC: 4-20 (05/03/18 06:10:00 EST) UA Squam Epithelial: >10 (05/03/18 06:10:00 EST) UA WBC: >75 Abnormal (05/03/18 06:10:00 EST) UA Bacteria: 2+ Abnormal (05/03/18 06:10:00 EST) Beta hCG Ql: NEGATIVE1 (05/03/18 06:07:00 EST) Diagnostic Results CT Abdomen/Pelvis w/ Contrast 05/03/18 08:30:50 IMPRESSION: 1. THE APPENDIX IS NOT CLEARLY IDENTIFIED BUT THERE IS NO CT EVIDENCE OF ACUTE APPENDICITIS. IT IS BEEN SHOWN THAT IN PATIENTS WITH RIGHT LOWER QUADRANT PAIN AND A NONVISUALIZED APPENDIX ON A MULTIDETECTOR CT SCAN OF THE ABDOMEN, APPENDICITIS CAN BE RELIABLY EXCLUDED. 2. POSSIBLE GALLSTONES WITH QUESTIONABLE PERICHOLECYSTIC FLUID. 3. EQUIVOCAL BLADDER WALL THICKENING. QUESTION POSSIBLE CYSTITIS DATE:05/03/2018 7:39 AM EXAMINATION: CT Abdomen/Pelvis w/ Contrast CLINICAL HISTORY: Diffuse abdominal pain Pain COMPARISON: None available. TECHNIQUE: Contiguous axial CT sections of the abdomen and pelvis. 100 cc of IV contrast administered.. All CT scans at this facility use dose modulation, iterative reconstruction, and/or weight based dosing when appropriate to reduce radiation dose to as low as reasonably achievable. FINDINGS: Liver: Negative Gallbladder: Tiny trace of pericholecystic fluid suggested. With tiny layering gallstones suggested. Spleen:Negative Pancreas:Negative Kidneys/adrenal: Tiny 5 mm left renal cyst. No hydronephrosis. No renal stone. Bowel:No obstruction, diverticulitis, or colitis. Appendix: The appendix is not clearly visible but there is no CT signs of appendicitis. Nodes:No retroperitoneal, mesenteric or pelvic lymphadenopathy. Aorta:Negative. No aneurysm Peritoneum:There is no free fluid or free air. The abdominal wall is intact. Pelvis: Questionable bladder wall thickening. The possibility of cystitis is raised. Bones:Skeletal structures unremarkable. Lung bases:No significant basilar changes. Signed By: Judd Curtis MD 05/03/18 07:52:16 GFR (mL/min/1/73m2) >60 Contrast: Isovue 300 Contrast amount in ml?s: 100 Rectal Contrast Given? No Signed By: Judd Curtis MD [facility] Comment on above: Result Comment: Elec tronically Signed By: Digna Oro DO\.br\Date and Time Signed: 05/03/18 08:54 EST ED Note-Physician Basic Information Time Seen: Janes Jovel MD 05/03/2018 06:45 Chief Complaint Pt reports at approx 0500 this morning pain woke her up located in her right lower quadrant of her abdomen. Pt reports nausea, no vomiting or fevers. Pt sts intermittent lower baominal pain for the last few days but pt reports this pain is new. PT denies History of Present Illness patient complains of lower abdominal pain for the past 3 days. This AM woke up with intense pain of her RLQ. Has not vomited. No cough or shortness of breath. Review of Systems Constitutional: no fever, no chills, no sweats, no weakness Respiratory: no shortness of breath, no cough, no orthopnea, no wheezing Cardiovascular: no chest pain, no palpitations, no edema Additional ROS info: Except as noted in the above Review of Systems and in the History of Present Illness all other systems have been reviewed and are negative or noncontributory. Physical Exam Vitals & Measurements T: 36.8 ?C (Oral) HR: 100(Peripheral) RR: 18 BP: 104/73 SpO2: 100% HT: 165 cm WT: 67 kg BMI: 24.61 General: alert, moderate distress Skin: warm, dry Head: no trauma, normocephalic Neck: Trachea midline, no adenopathy, no tenderness Eye: normal conjunctiva, sclera clear ENMT: , oral mucosa moist, Cardiovascular: regular rate and rhythm, normal peripheral perfusion Respiratory: Lungs CTA, respirations non labored Chest wall: no deformity. Gastrointestinal: soft, non distended, moderate tenderness, no guarding. Back: No tenderness, Normal ROM, Normal alignment. Extremities: no deformity, no trauma Neurological: oriented x 4, LOC appropriate for age, CN intact, motor strength equal & normal bilaterally, sensation equal & normal bilaterally, speech normal Psychiatric: cooperative, affect appropriate for age, normal judgement, normal psychiatric thoughts. Medical Decision Making patient presents with right flank pain and pyuria. PE and labs findings concerning for acute pyelonephritis. antibiotics and CT ordered. Will transfer care at change of shift Assessment/Plan 1. Rt flank pain 2. Urinary tract infection Orders: ceftriaxone, 1 gram = 1 EA, Injection, IV Piggyback, Once, Stop date 05/03/18 6:46:00 EST, STAT, Start date 05/03/18 6:46:00 EST, 100 mL/hr, Infuse over 30 minute(s) morphine, 2 mg = 1 mL, Injection, IV Push, Once, Stop date 05/03/18 6:46:00 EST, STAT, Start date 05/03/18 6:46:00 EST ondansetron, 4 mg = 2 mL, Injection, IV Push, Once, Stop date 05/03/18 6:46:00 EST, STAT, Start date 05/03/18 6:46:00 EST Sodium Chloride 0.9% intravenous solution 1,000 mL, 1,000 mL, IV Piggyback, 1,000 mL/hr, for 2 hour(s), Stop date 05/03/18 8:47:00 EST, STAT, Start date 05/03/18 6:48:00 EST, 1 hour(s), Total volume (mL): 1,000, Bolus Dose: 1,000 mL Automated Diff Basic Metabolic Panel Beta hCG Qual CBC w/ Auto Diff CT Abdomen/Pelvis w/ Contrast eGFR Hepatic Function Panel Lactic Acid Lipase Level NPO Diet U Beta Hcg Qual UA With Cult Reflex Urine Culture Disposition Plan Discharge Prescription List Prescriptions No active prescription medications Follow-up No qualifying data available Problem List/Past Medical History Ongoing Smoker Historical exercise induced scoliosis Procedure/Surgical History Denies. Medications Inpatient cefTRIAXone 1 gram IVPB morphine 2 mg/mL Inj, 2 mg= 1 mL, IV Push, Once NS 1000 ml Bolus 1,000 mL, 1000 mL, IV Piggyback Zofran 4 mg/2 mL Injection, 4 mg= 2 mL, IV Push, Once Home Implanon 68 mg subcutaneous implant, 68 mg, SubCutaneous, Once Misc Medication Allergies No Known Allergies Social History Alcohol - Denies Alcohol Use, 05/26/2015 Current, 05/03/2018 Substance Abuse - Denies Substance Abuse, 05/26/2015 Current, 05/03/2018 Tobacco - Denies Tobacco Use, 05/26/2015 Never (less than 100 in lifetime) Tobacco Use:. Never Smokeless Tobacco Use:., 05/03/2018 Lab Results WBC: 16.1 E9/L High (05/03/18 06:07:00 EST) RBC: 4.7 E12/L (05/03/18 06:07:00 EST) Hgb: 13.9 gm/dL (05/03/18 06:07:00 EST) Hct: 41.1 % (05/03/18 06:07:00 EST) MCV: 87.2 fL (05/03/18 06:07:00 EST) MCH: 29.4 pg (05/03/18 06:07:00 EST) MCHC: 33.7 gm/dL (05/03/18 06:07:00 EST) RDW: 13.4 % (05/03/18 06:07:00 EST) Platelet: 270 E9/L (05/03/18 06:07:00 EST) MPV: 8 fL (05/03/18 06:07:00 EST) Neutro Auto: 66.9 % (05/03/18 06:07:00 EST) Lymph Auto: 23.2 % (05/03/18 06:07:00 EST) [place] Auto: 8.7 % (05/03/18 06:07:00 EST) Eos Auto: 0.8 % (05/03/18 06:07:00 EST) Basophil Auto: 0.4 % (05/03/18 06:07:00 EST) Neutro Absolute: 10.8 E9/L High (05/03/18 06:07:00 EST) Lymph Absolute: 3.8 E9/L (05/03/18 06:07:00 EST) [place] Absolute: 1.4 E9/L High (05/03/18 06:07:00 EST) Eos Absolute: 0.1 E9/L (05/03/18 06:07:00 EST) Basophil Absolute: 0.1 E9/L (05/03/18 06:07:00 EST) Glucose Lvl: 109 mg/dL (05/03/18 06:07:00 EST) BUN: 9 mg/dL (05/03/18 06:07:00 EST) Creatinine: 0.8 mg/dL (05/03/18 06:07:00 EST) eGFR: >60 (05/03/18 06:07:00 EST) eGFR AA: >60 (05/03/18 06:07:00 EST) BUN/Creat Ratio: 11 (05/03/18 06:07:00 EST) Sodium Lvl: 136 mmol/L (05/03/18 06:07:00 EST) Potassium Lvl: 2.9 mmol/L Low (05/03/18 06:07:00 EST) Chloride: 102 mmol/L (05/03/18 06:07:00 EST) CO2: 28 mmol/L (05/03/18 06:07:00 EST) AGAP: 9 mEq/L (05/03/18 06:07:00 EST) Calcium Lvl: 8.9 mg/dL (05/03/18 06:07:00 EST) Alk Phos: 61 Int._Unit/L (05/03/18 06:07:00 EST) ALT: 11 Int._Unit/L (05/03/18 06:07:00 EST) AST: 14 Int._Unit/L (05/03/18 06:07:00 EST) Total Protein: 7.2 gm/dL (05/03/18 06:07:00 EST) Albumin Lvl: 4.3 gm/dL (05/03/18 06:07:00 EST) Globulin: 2.9 gm/dL (05/03/18 06:07:00 EST) A/G Ratio: 1.5 (05/03/18 06:07:00 EST) Bili Total: 1.1 mg/dL (05/03/18 06:07:00 EST) Bili Direct: 0.2 mg/dL (05/03/18 06:07:00 EST) Bili Indirect: 0.9 mg/dL (05/03/18 06:07:00 EST) Lipase Lvl: 22 unit/L (05/03/18 06:07:00 EST) UA Spec Desc: Clean Catch (05/03/18 06:10:00 EST) UA Color: Yellow2 (05/03/18 06:10:00 EST) UA Clarity: Cloudy2 Abnormal (05/03/18 06:10:00 EST) UA Spec Grav: 1.025 (05/03/18 06:10:00 EST) UA pH: 6.0 (05/03/18 06:10:00 EST) UA Protein: 1+ Abnormal (05/03/18 06:10:00 EST) UA Glucose: NEGATIVE1 (05/03/18 06:10:00 EST) UA Ketones: NEGATIVE1 (05/03/18 06:10:00 EST) UA Bili: NEGATIVE1 (05/03/18 06:10:00 EST) UA Blood: 2+ Abnormal (05/03/18 06:10:00 EST) UA Nitrite: Positive1 Abnormal (05/03/18 06:10:00 EST) UA Urobilinogen: 0.2 (05/03/18 06:10:00 EST) UA Leuk Est: 2+ Abnormal (05/03/18 06:10:00 EST) UA RBC: 4-20 (05/03/18 06:10:00 EST) UA Squam Epithelial: >10 (05/03/18 06:10:00 EST) UA WBC: >75 Abnormal (05/03/18 06:10:00 EST) UA Bacteria: 2+ Abnormal (05/03/18 06:10:00 EST) Beta hCG Ql: NEGATIVE1 (05/03/18 06:07:00 EST) Diagnostic Results No qualifying data available. Normal Ureña Tit [facility] Comment on above: Result Comment: Aquilino tolliver Signed By: Med DIALLO, Janes\.mukund\Date and Time Signed: 05/03/18 06:53 EST ED Patient Education Noteon 05-03-2018 ED Patient Education Note Family Medicine Possible Cholelithiasis Follow-up with your primary care physician Your primary care physician may consider doing a gallbladder ultrasound if you continue to have symptoms. Cholelithiasis (also called gallstones) is a form of gallbladder disease. The gallbladder is a small organ that helps you digest fats. Symptoms of gallstones are: ? Feeling sick to your stomach (nausea). ? Throwing up (vomiting). ? Belly pain. ? Yellowing of the skin (jaundice). ? Sudden pain. You may feel the pain for minutes to hours. ? Fever. ? Pain to the touch. HOME CARE ? Only take medicines as told by your doctor. ? Eat a low-fat diet until you see your doctor again. Eating fat can result in pain. ? Follow up with your doctor as told. Attacks usually happen time after time. Surgery is usually needed for permanent treatment. GET HELP RIGHT AWAY IF: ? Your pain gets worse. ? Your pain is not helped by medicines. ? You have a fever and lasting symptoms for more than 2?3 days. ? You have a fever and your symptoms suddenly get worse. ? You keep feeling sick to your stomach and throwing up. MAKE SURE YOU: ? Understand these instructions. ? Will watch your condition. ? Will get help right away if you are not doing well or get worse. Document Released: 11/01/2008 Document Revised: 01/16/2014 Document Reviewed: 11/07/2013 ExitCare? Patient Information ?2015 [employer]. This information is not intended to replace advice given to you by your health care provider. Make sure you discuss any questions you have with your health care provider. Pyelonephritis, Adult Pyelonephritis is a kidney infection. A kidney infection can happen quickly, or it can last for a long time. HOME CARE ? Take your medicine (antibiotics) as told. Finish it even if you start to feel better. ? Keep all doctor visits as told. ? Drink enough fluids to keep your pee (urine) clear or pale yellow. ? Only take medicine as told by your doctor. GET HELP RIGHT AWAY IF: ? You have a fever or lasting symptoms for more than 2-3 days. ? You have a fever and your symptoms suddenly get worse. ? You cannot take your medicine or drink fluids as told. ? You have chills and shaking. ? You feel very weak or pass out (faint). ? You do not feel better after 2 days. MAKE SURE YOU: ? Understand these instructions. ? Will watch your condition. ? Will get help right away if you are not doing well or get worse. Document Released: 06/23/2005 Document Revised: 11/14/2012 Document Reviewed: 11/03/2011 ExitCare? Patient Information ?2014 [employer]. This information is not intended to replace advice given to you by your health care provider. Make sure you discuss any questions you have with your health care provider. Normal [facility] ED Patient Summaryon 018 ED Patient Summary [place] [id number] Patient Discharge Instructions Person Information Name: YAEL TALLEY Age: 18 Years Arrival Date: 05/03/2018 5:43 AM Discharge Diagnosis: 1:Rt flank pain; 2:Urinary tract infection; 3:Acute pyelonephritis Primary Care Physician: Jolynn VILLA MD Provider Information Primary Provider: Janes Jovel MD Advanced Runner Worker:None The exam and treatment you received in the Emergency Department were for an urgent problem and are not intended as complete care. It is important that you follow up with a doctor, nurse practitioner, or physician?s assistant shift supervisor for ongoing care. If your symptoms become worse or you do not improve as expected and you are unable to reach your usual health care provider, you should return to the Emergency Department. We are available 24 hours a day. GERRIYAEL has been given the following list of patient education materials, prescriptions and follow-up instructions: Follow-up Instructions: With: Address: When: Jolynn VILLA [address] [place], [place] [address] [address] Business (1) Within 3 to 5 days Comments: Call physician if symptoms worsen Return to ED if symptoms worsen In the event that this physician does not participate in your insurance network, please consult with your insurance company to find a nearby participating provider. Patient Education Materials: Cholelithiasis, Prku-mf-Mrkf; Pyelonephritis, Adult, Kyjo-tf-Wpas A MESSAGE TO ALL PATIENTS REGARDING OPIOIDS PRESCRIPTION OPIOIDS: WHAT YOU NEED TO KNOW Prescription opioids can be used to help relieve ervosiek-ec-dkjquf pain and are often prescribed following a surgery or injury, or for certain health conditions. These medications can be an important part of the treatment but also come with serious risks. It is important to work with your healthcare provider to make sure you are getting the safest, most effective care. WHAT ARE THE RISKS AND SIDE EFFECTS OF OPIOID USE? Prescription opioids carry serious risks of addiction and overdose, especially with prolonged use. An opioid overdose, often marked by slowed breathing, can cause sudden . The use of prescription opioids can have a number of side effects as well, even when taken as directed: ? Tolerance?meaning you might need to take more of the medication for the same pain relief ? Physical dependence?meaning you have symptoms of withdrawal when a medication is stopped ? Increased sensitivity to pain ? Constipation ? Nausea, vomiting, and dry mouth ? Sleepiness and dizziness ? Confusion ? Depression ? Low levels of testosterone that can result in lower sex drive, energy, and strength ? Itching and sweating RISKS ARE GREATER WITH: ? History of drug misuse, substance use disorder, or overdose ? Mental health conditions (such as depression or anxiety) ? Sleep apnea ? Older age (65 years and older) ? Avoid alcohol while taking prescription opioids. Also, unless specifically advised by your health care provider, medications to avoid include: ? Benzodiazepines (such as Xanax or Valium) ? Muscle relaxants (such as Soma or Flexeril) ? Hypnotics (such as Ambien or Lunesta) ? Other prescription opioids KNOW YOUR OPTIONS Talk to your health care provider about ways to manage your pain that don?t involve prescription opioids. Some of these options may actually work better and have fewer risks and side effects. Options may include: ? Pain relievers such as acetaminophen, ibuprofen, and naproxen ? Some medication that are also used for depression or seizures ? Physical therapy and exercise ? Cognitive behavioral therapy, a psychological, goal-directed approach, in which patients learn how to modify physical, behavioral, and emotional triggers of pain and stress. IF YOU ARE PRESCRIBED OPIOIDS FOR PAIN: ? Never take opioids in greater amounts or more often than prescribed. ? Follow up with your primary health care provider. o Work together to create a plan on how to manage your pain. o Talk about ways to help manage your pain that don?t involve prescription opioids. o Talk about any and all concerns and side effects. ? Help prevent misuse and abuse o Never sell or share prescription opioids. o Never use another person?s prescription opioids. ? Store prescription opioids in a secure place and out of reach of others (this may include visitors, children, friends, and family). ? Safely dispose of unused prescription opioids: Find your community drug take-back program or your pharmacy mail-back program, or flush them down the toilet, following guidance from the Food and Drug Administration (www.fda.gov/Drugs/ResourcesForYou). ? Visit www.cdc.gov/drugoverdose to learn about the risks of opioids abuse and overdose. ? If you believe you may be struggling with addiction, tell your health home health care coordinator and ask for guidance or call [facility]?S National Helpline at 9-376-464-FOSJ. n Source: US Department of Health and Human Services/Center for Disease Control & Prevention [facility] Medications Given: Medication Dose Route morphine 2.00 mg IV Push Right Antecubit Addy ondansetron 4.00 mg IV Push Right Antecubit [place] ceftriaxone 1.00 gram IV Piggyback Right Antecubit Addy Sodium Chloride 0.9% intravenous solution 1000.00 mL Initial Volume 1000.00 mL/hr IV Piggyback Right Antecubit Addy Medication Information: New Medications Printed Prescriptions acetaminophen-hydrocodone ([place] 325 mg-5 mg oral tablet) 1 Tabs By Mouth every 6 hours as needed for pain. Refills: 0. ciprofloxacin (Cipro 500 mg Tab) 1 Tabs By Mouth 2 times a day. Take one tab by mouth twice a day for seven days. Refills: 0. ibuprofen (ibuprofen 400 mg Tab) 1 Tabs By Mouth every 6 hours as needed as needed for pain/fever. Refills: 0. ondansetron (Zofran ODT 8 mg Tab-Dis) 1 Tabs By Mouth every 8 hours as needed Nausea. Refills: 1. Medications to Continue with No Changes Other Medications etonogestrel (Implanon 68 mg subcutaneous implant) 68 Milligram Subcutaneous Once. Non-Formulary Medication (Misc Medication) Comment: Pharmacy Information: Re Mustafa Thank you for choosing [facility] Patient Education Materials: Possible Cholelithiasis Follow-up with your primary care physician Your primary care physician may consider doing a gallbladder ultrasound if you continue to have symptoms. Cholelithiasis (also called gallstones) is a form of gallbladder disease. The gallbladder is a small organ that helps you digest fats. Symptoms of gallstones are: ? Feeling sick to your stomach (nausea). ? Throwing up (vomiting). ? Belly pain. ? Yellowing of the skin (jaundice). ? Sudden pain. You may feel the pain for minutes to hours. ? Fever. ? Pain to the touch. HOME CARE ? Only take medicines as told by your doctor. ? Eat a low-fat diet until you see your doctor again. Eating fat can result in pain. ? Follow up with your doctor as told. Attacks usually happen time after time. Surgery is usually needed for permanent treatment. GET HELP RIGHT AWAY IF: ? Your pain gets worse. ? Your pain is not helped by medicines. ? You have a fever and lasting symptoms for more than 2?3 days. ? You have a fever and your symptoms suddenly get worse. ? You keep feeling sick to your stomach and throwing up. MAKE SURE YOU: ? Understand these instructions. ? Will watch your condition. ? Will get help right away if you are not doing well or get worse. Document Released: 11/01/2008 Document Revised: 01/16/2014 Document Reviewed: 11/07/2013 ExitCare? Patient Information ?2015 [employer]. This information is not intended to replace advice given to you by your health care provider. Make sure you discuss any questions you have with your health care provider. Pyelonephritis, Adult Pyelonephritis is a kidney infection. A kidney infection can happen quickly, or it can last for a long time. HOME CARE ? Take your medicine (antibiotics) as told. Finish it even if you start to feel better. ? Keep all doctor visits as told. ? Drink enough fluids to keep your pee (urine) clear or pale yellow. ? Only take medicine as told by your doctor. GET HELP RIGHT AWAY IF: ? You have a fever or lasting symptoms for more than 2-3 days. ? You have a fever and your symptoms suddenly get worse. ? You cannot take your medicine or drink fluids as told. ? You have chills and shaking. ? You feel very weak or pass out (faint). ? You do not feel better after 2 days. MAKE SURE YOU: ? Understand these instructions. ? Will watch your condition. ? Will get help right away if you are not doing well or get worse. Document Released: 06/23/2005 Document Revised: 11/14/2012 Document Reviewed: 11/03/2011 ExitCare? Patient Information ?2015 [employer]. This information is not intended to replace advice given to you by your health care provider. Make sure you discuss any questions you have with your health care provider. GERRI Soliz ALEXUS R , have received the following patient education materials/instructions and have verbalized understanding: Patient Education Materials: Cholelithiasis, Zqnt-im-Flqp; Pyelonephritis, Adult, Wjek-dz-Cidv Follow-up Instructions: With: Address: When: Jolynn VILLA [address] [place], [place] [address] [id number] Business (1) Within 3 to 5 days Comments: Call physician if symptoms worsen Return to ED if symptoms worsen Prescriptions: [acetaminophen-hydrocodone ([place] 325 mg-5 mg oral tablet)] [ciprofloxacin (Cipro 500 mg Tab)] [ibuprofen (ibuprofen 400 mg Tab)] [ondansetron (Zofran ODT 8 mg Tab-Dis)] Patient Signature Date Clinician/Nurse Signature Date 05/03/18 09:58:03 Normal [facility] Hep Func Panelon 05-03-2018 Albumin mass conc 4.3 g/dL Normal 3.3-5.0 [facility] Comment on above: Performed By: #### 2 [id number], 5652050, 1359792, 4341914, 2172848, 82011545, 39451500 ####[facility] [address] [place] [address] Albumin mass conc 1.5 g/dL Normal 1.1-2.2 [facility] Comment on above: Performed By: #### 2 558187, 9279591, 2934598, 1608293, 3666457, 56735342, 59463491 ####[facility] [address] [place] [address] ALP enzyme act/vol 61 Int._Unit/L Normal 21-98 [facility] Comment on above: Performed By: #### 2 057259, 6066330, 2587498, 2573102, 4196734, 21237583, 31021914 ####[facility] [address] [facility] [place] [address] ALT No additional P-5'-P enz yme act/vol 11 Int._Unit/L Normal 6-46 [facility] Comment on above: Performed By: #### 2 712129, 4868988, 9842598, 4674593, 8877363, 73161619, 03785282 ####[facility] [address] [place] [address] AST enzyme act/vol 14 Int._Unit/L Normal 5-43 [facility] Comment on above: Performed By: #### 2 959476, 1076182, 9483929, 5455162, 5938007, 58321672, 23667158 ####[facility] [address] [place] [address] Bilirubin mass conc 1.1 mg/dL Normal 0.0-1.1 Cam [facility]aney [facility] Comment on above: Performed By: #### 2 635705, 5114545, 1352880, 2647400, 5720368, 98412622, 43099008 ####[place] [address] [place] [address] Bilirubin.direct mass conc 0.2 mg/dL Normal 0.1-0.4 [facility] Comment on above: Performed By: #### 2 524159, 6329513, 6477091, 4149525, 6310876, 21255067, 57574059 ####[address] [address] Bilirubin.direct mass conc 0.9 mg/dL Normal 0.1-0.9 [facility] Comment on above: Performed By: #### 2 770804, 1677224, 2119451, 0110512, 8072955, 43080756, 11307092 ####[facility] [address] [place] [address] Globulin mass conc (S) 2.9 g/dL Normal 1.4-4.0 [facility] Comment on above: Performed By: #### 2 436714, 7287910, 9965738, 6221063, 6002327, 42873387, 85879617 ####[facility] [address] [place] [address] Protein mass conc 7.2 g/dL Normal 6.0-7.8 [facility] Comment on above: Performed By: #### 2 246252, 9800991, 6701177, 4783790, 0177823, 38855661, 59724930 ####[place] [address] [place] [address] Lactic Acidon 05-03-2018 Lactate mass conc 7.2 mg/dL Normal 4.5-19.8 [facility] Comment on above: Performed By: #### 2 961034 ####[facility] [address] [place] [address] Lipase Levelon 05-03-2018 Lipase enzyme act/vol 22 unit/L Normal 13-[address] [facility] Comment on above: Performed By: #### 2 013150, 7717474, 0743123, 9879067, 7942347, 50598140, 48596358 ####[facility] [address] [place] [address] UA With Cult Reflexon 2017 Bacteria LM Ql (Urine sed) 2+ /HPF Abnormal Trace [facility] Comment on above: Performed By: #### 1 2252476, 0340748 ####[address] [address] Bilirubin Ql (U) Negative Normal Negative [facility] Comment on above: Performed By: #### 1 7869125, 8608773 ####[address] [address] Clarity Nom (U) CLOUDY Abnormal Clear [facility] Comment on above: Performed By: #### 1 1980041, 0380128 ####[address] [address] Color Nom (U) YELLOW Normal Yellow [facility] Comment on above: Performed By: #### 1 7835983, 8393727 ####[address] [address] Epithelial cells.squamous LM .HPF #/area (Urine sed) /[HPF] Normal 0-2 [facility] Comment on above: Performed By: #### 1 3637786, 1301670 ####[address] [address] Glucose Test strip mass conc (U) Negative Normal Neg ative [facility] Comment on above: Performed By: #### 1 9004879, 6019083 ####[address] [address] Hemoglobin Ql (U) 2+ Abnormal Negative [facility] Comment on above: Performed By: #### 1 5630617, 5367331 ####[facility] [address] [place] [address] Ketones mass conc (U) Negative Normal Negative [facility] Comment on above: Performed By: #### 1 5351772, 5263162 ####[address] [address] [place].plasma/[place].RBC mass ratio (Bld) 4-20 Nor mal 0-3 [facility] Comment on above: Performed By: #### 1 6117225, 4038630 ####[address] [address] Nitrite Ql (U) Positive Abnormal Negative [facility] Comment on above: Performed By: #### 1 4504380, 8130443 ####[address] [address] pH (U) 6.0 [pH] 5.0-9.0 [facility] Comment on above: Performed By: #### 1 3566924, 7265274 ####[facility] [address] [place] [address] Protein mass conc (U) 1+ Abnormal Negative [facility] Comment on above: Performed By: #### 1 2622907, 0912973 ####[address] [address] Specific gravity Relative Density (U) 1.025 1.005-1.030 [facility] Comment on above: Performed By: #### 1 7492058, 7141224 ####[address] [address] UA Spec Desc Clean Catch Normal [facility] Comment on above: Performed By: #### 1 2553911, 7011074 ####[address] [address] Urobilinogen Qn (U) 0.2 {Carlos'U}/dL Normal 0.0-1.0 [facility] Comment on above: Performed By: #### 1 8159774, 7353981 ####[facility] [address] [place] [address] WBC Auto Ql (U) 2+ Abnormal Negative [facility] Comment on above: Performed By: #### 1 4478006, 4101578 ####[facility] [address] [place] [address] WBC LM.HPF #/area (Urine sed) /[HPF] Abnormal 0-5 [facility] Comment on above: Performed By: #### 1 5413902, 3398680 ####[facility] [address] [place] [address] eGFRon 05-03-2018 GFR/1.73 sq M predicted kary g blacks MDRD vol rate/area (S/P/Bld) mL/min/{1.73_m2} Normal >=[address] [facility] Comment on above: Order Comment: Order added by Discern Expert. Result Comment: eGFR is race adjusted. AA=. Performed By: #### 2 538967, 9252671, 8828034, 2605994, 9176513, 66254321, 12287600 ####[facility] [address] [place] [address] GFR/1.73 sq M predicted kary g non-blacks MDRD vol rate/area (S/P/Bld) mL/min/{1.73_m2} Normal >=[address] [facility] Comment on above: Order Comment: Order added by Discern Expert. Result Comment: Door Worker del kidney disease could be indicated at eGFR's of less than 60 mL/min/1.73m2. Kidney failure is indicated at less than 15 mL/min/1.73m2. Performed By: #### 2 235166, 0450687, 0591271, 9084484, 7682979, 93701960, 43345949 ####[facility] [address] [place] [address] Coding Summary.on 03-13-2018 Coding Summary. CODING DATE: 018 FINAL [facility] STATUS: Home (Routine DC) PAYOR: Jamil APC DESCRIPTION 5522 Level 2 Imaging without Contrast ADMIT DX: REASON FOR VISIT DX: R10.9 Unspecified abdominal pain FINAL DX: PRINCIPAL: R10.11 Right upper quadrant pain SECONDARY: R11.2 Nausea with vomiting, unspecified PYMT PROC APC STAT DESCRIPTION DOCTOR NAME DATE NOTE: The code number assigned matches the documented diagnosis and / or procedure in the patient's chart. However, the narrative phrase printed from the coding software may appear abbreviated, or result in slightly different terminology. Coded By: Beckie Campos Date Saved: 03/13/2018 01:48 pm Normal [facility] Auto Diffon 03-10-2018 Basophils #/vol (Bld) 0.8 % Normal 0.0-2.[address] [facility] Comment on above: Order Comment: Order Added by Discern Expert. Performed By: #### 2 341506, 7927991, 0017683, 1003994, 64582541, 3184333, 84375904 ####[facility] [address] [place] [address] Basophils/Leukocytes Auto Pu re number fraction (Bld) 0.1 E9/L Normal 0.0-0.2 [facility] Comment on above: Order Comment: Order Added by Discern Expert. Performed By: #### 2 542127, 9683958, 9937461, 3191664, 65572912, 9086340, 78013177 ####[facility] [address] [place] [address] Eosinophils/100 WBC (Bld) 1.5 % Normal 0.0-8.0 [facility] Comment on above: Order Comment: Order Added by Discern Expert. Performed By: #### 2 832030, 6477843, 4417647, 4125142, 88936881, 1269477, 89537673 ####[facility] [address] [place] [address] Eosinophils/Leukocytes Auto Pure number fraction (Bld) 0.1 E9/L Normal 0.0-0.5 [facility] Comment on above: Order Comment: Order Added by [employer] Expert. Performed By: #### 2 198022, 7393846, 6831608, 1394146, 20483952, 8575824, 25923330 ####[facility] [address] [place] [address] Lymphocytes/100 WBC (Bld) 26.8 % Normal 14.0-50.0 [facility] Comment on above: Order Comment: Order Added by Discern Expert. Performed By: #### 2 596214, 2855491, 8204881, 1699842, 02678027, 5061270, 46047305 ####[facility] [address] [place] [address] Lymphocytes/Leukocytes Auto Pure number fraction (Bld) 2.0 E9/L Normal 1.0-4.0 [facility] Comment on above: Order Comment: Order Added by Stanford Expert. Performed By: #### 2 775678, 7866451, 7815173, 3385140, 88448503, 1295925, 26984166 ####[facility] [address] [place] [address] Monocytes/100 WBC (Bld) 8.4 % Normal 4.0-14.0 [facility] Comment on above: Order Comment: Order Added by Stanford Expert. Performed By: #### 2 792931, 9706211, 4268808, 4533435, 29476134, 2810415, 66064659 ####[facility] [address] [place] [address] Monocytes/Leukocytes Auto Pu re number fraction (Bld) 0.6 E9/L Normal 0.2-1.0 [facility] Comment on above: Order Comment: Order Added by Stanford Expert. Performed By: #### 2 132839, 3540631, 8166152, 0724507, 75523382, 2350426, 67122894 ####[facility] [address] [place] [address] Neutrophils/100 WBC (Bld) 62.5 % Normal 36.0-75.0 [facility] Comment on above: Order Comment: Order Added by Discern Expert. Performed By: #### 2 521008, 9159983, 4528057, 8668108, 02430990, 1988583, 40054024 ####[facility] [address] [place] [address] Neutrophils/Leukocytes Auto Pure number fraction (Bld) 4.8 E9/L Normal 2.0-7.5 [facility] Comment on above: Order Comment: Order Added by Discern Expert. Performed By: #### 2 576193, 7471954, 3272873, 3422527, 62593589, 2312687, 78052725 ####[address] [place] [address] B hCG Qualon 03-10-2018 HCG.beta subunit Qn Negative Normal [facility] Comment on above: Performed By: #### 2 098133, 4181916, 5741754, 7095012, 08295432, 2460621, 73852099 ####[facility] [address] [place] [address] BMPon 03-10-2018 Creatinine mass conc 0.7 mg/dL Normal 0.5-1.3 [facility] Comment on above: Performed By: #### 2 012171, 1719480, 1888799, 6969952, 40578680, 3438122, 47547362 ####[facility] [address] [place] [address] Urea nitrogen mass conc 13 mg/dL Normal 5-21 [facility] Comment on above: Performed By: #### 2 490938, 4057143, 8280450, 1994280, 90933804, 5259663, 89034564 ####[facility] [address] [place] [address] Urea nitrogen/Creatinine mass ratio 19 No Units Normal 10-20 [facility] Comment on above: Performed By: #### 2 260082, 1367720, 1315964, 6396168, 44343919, 4142234, 07755306 ####[facility] [address] [place] [address] Anion gap molar conc 11 mmol/L Normal 6-16 [facility] Comment on above: Performed By: #### 2 893513, 7537614, 2611396, 7350561, 85167462, 0016475, 23737393 ####[facility] [address] [place] [address] Calcium mass conc 8.9 mg/dL Normal 8.9-11.1 [facility] Comment on above: Performed By: #### 2 593180, 7798956, 9226260, 0838227, 51006201, 2921437, 89180830 ####[facility] [address] [place] [address] Chloride molar conc 107 mmol/L Normal 101-111 [facility] Comment on above: Performed By: #### 2 320889, 7214631, 3387001, 6993985, 98318689, 1234202, 58628031 ####[facility] [address] [place] [address] CO2 molar conc 23 mmol/L Normal 21-31 [facility] Comment on above: Performed By: #### 2 940316, 3996183, 7311485, 3461764, 09540107, 1928657, 72665258 ####[facility] [address] [place] [address] Glucose mass conc 99 mg/dL Normal 55-199 [facility] Comment on above: Result Comment: If t his glucose result represents a fasting glucose, interpretation should refer to the following reference range: 55-99 mg/dL Performed By: #### 2 309256, 0720669, 6310411, 1685361, 96317091, 4114637, 74800406 ####[facility] [address] [place] [address] Potassium molar conc 3.9 mmol/L Normal 3.5-5.3 [facility] Comment on above: Performed By: #### 2 379202, 5003159, 2036979, 2694423, 10846748, 9628756, 31232175 ####[facility] [address] [place] [address] Sodium molar conc 137 mmol/L Normal 135-145 [facility] Comment on above: Performed By: #### 2 435295, 4263816, 0807221, 7126305, 98869614, 9935255, 55249950 ####[facility] [address] [place] [address] CBC w/ Auto Diffon 8 Erythrocyte distribution wid th Ratio (RBC) 13.4 % Normal 10.9-14.2 [facility] Comment on above: Performed By: #### 2 058586, 8884848, 1820235, 3657551, 26780150, 6335494, 87147417 #### [facility] [address] [place] [address] Hematocrit Volume Fraction (Bld) 38.8 % Normal 34. 0-46.0 [facility] Comment on above: Performed By: #### 2 247882, 6342302, 8541259, 9865153, 85744692, 2595402, 65284240 #### [facility] [address] [place] [address] Hemoglobin mass conc (Bld) 13.3 g/dL Normal 12.0-16.0 [facility] Comment on above: Performed By: #### 2 351865, 7072916, 1527548, 6806386, 85041294, 9003559, 15922626 #### [facility] [address] [place] [address] MCH Entitic mass (RBC) 29.5 pg Normal 27.0-34.0 [facility] Comment on above: Performed By: #### 2 699175, 7744235, 2868316, 2407889, 06743940, 2612608, 29911202 #### [facility] [address] [place] [address] MCHC mass conc (RBC) 34.2 g/dL Normal 31.4-39.3 [facility] Comment on above: Performed By: #### 2 499389, 5991445, 2509583, 8373922, 10851947, 1591499, 53412233 #### [facility] [address] [place] [address] MCV Entitic volume (RBC) 86.4 fL Normal 80.0-100.0 [facility] Comment on above: Performed By: #### 2 535091, 8187812, 9034283, 6483724, 91633768, 8456679, 35991947 #### [facility] [address] [place] [address] Platelet mean volume Entitic volume (Bld) 8.2 fL Normal 6.4-10.8 [facility] Comment on above: Performed By: #### 2 151678, 7854925, 3883291, 1125983, 95309148, 6459467, 61700835 #### [facility] [address] [place] 8678857 Platelets #/vol (Bld) 221.0 E9/L Normal 150.0-500.0 [facility] Comment on above: Performed By: #### 2 453029, 3355109, 2992640, 9355605, 89963509, 2438951, 17082777 #### [facility] [address] [place] [address] RBC #/vol (Bld) 4.5 E12/L Normal 4.3-5.9 [facility] Comment on above: Performed By: #### 2 307787, 2077238, 2130940, 9673828, 07832899, 5133550, 09369664 #### [facility] [address] [place] [address] WBC corrected for nucl RBC A uto #/vol (Bld) 7.6 E9/L Normal 4.0-11.0 [facility] Comment on above: Performed By: #### 2 853374, 7477032, 1430335, 1370312, 82986604, 5613518, 43653175 #### [facility] [address] [place] [address] ED Clinical Summaryon 2017 ED Clinical Summary (Inserted Image. Violetta ble to display) [address] [address] ED Clinical Summary Person Information Name: YAEL TALLEY Mirian/[place] Age: 17 Years : 2000 12:00 AM Sex: Female Language: Citizen Of [place] PCP: Carlie Talley MD Marital Status: Single Visit Id: Visit Reason: Vomiting; Abdominal pain; ABD PAIN, VOMITING Speciality: Acuity: 3 Enc Type: Emergency Med Service: Emergency Arrival: 03/10/2018 10:30 AM Discharge: 03/10/2018 1:26 PM LOS: 000 02:56 Checkin: 03/10/2018 10:30 AM Checkout: 03/10/2018 1:26 PM Dispo Type: Home (Routine DC) EVENTS: Event Name Event Status Request Date/Time Start Date/Time Complete Date/Time Arrive Complete 03/10/2018 10:30 AM 03/10/2018 10:30 AM 03/10/2018 10:30 AM Document Home Meds Request 03/10/2018 10:30 AM Triage Complete 03/10/2018 10:30 AM 03/10/2018 10:40 AM 03/10/2018 10:40 AM Bed Assign Complete 03/10/2018 10:41 AM 03/10/2018 10:41 AM 03/10/2018 10:[address] Exam Complete 03/10/2018 10:41 AM 03/10/2018 10:42 AM 03/10/2018 10:42 AM RN Exam Complete 03/10/2018 10:41 AM 03/10/2018 10:49 AM 03/10/2018 10:49 AM Registration Complete 03/10/2018 10:42 AM 03/10/2018 11:04 AM 03/10/2018 11:[address] Exam Complete 03/10/2018 10:43 AM 03/10/2018 10:43 AM 03/10/2018 10:43 AM Pending Labs Complete 03/10/2018 10:49 AM 03/10/2018 11:31 AM Lab Complete 03/10/2018 10:49 AM 03/10/2018 11:18 AM Pending Labs Complete 03/10/2018 10:58 AM 03/10/2018 10:58 AM 03/10/2018 11:18 AM Lab Complete 03/10/2018 10:58 AM 03/10/2018 10:58 AM 03/10/2018 11:18 AM Reg Complete Request 03/10/2018 11:04 AM Reg Bed Request Complete 03/10/2018 11:04 AM 03/10/2018 11:04 AM 03/10/2018 11:04 AM Pending Labs Complete 03/10/2018 11:14 AM 03/10/2018 11:14 AM 03/10/2018 11:14 AM Lab Complete 03/10/2018 11:14 AM 03/10/2018 11:14 AM 03/10/2018 11:14 AM US Complete 03/10/2018 11:16 AM 03/10/2018 11:37 AM 03/10/2018 11:58 AM Meds Admin Complete 03/10/2018 12:38 PM 03/10/2018 12:45 PM Discharge Complete 03/10/2018 12:58 PM 03/10/2018 1:26 PM 03/10/2018 1:26 PM Transfer Complete 03/10/2018 1:26 PM 03/10/2018 1:26 PM 03/10/2018 1:26 PM ADDRESS: [address] [place] [address] [address] [phone] PHYS DOC NOTES: MEDICAL INFORMATION: Prescriptions Given: Prescription Display omeprazole (omeprazole 40 mg Cap-DR) 40 mg = 1 cap(s), Oral, Daily, X 7 day(s), # 7 cap(s), Refills(s) 0 promethazine (promethazine 25 mg Tab) 25 mg = 1 tab(s), Oral, TID, # 15 tab(s), Refills(s) 0 PATIENT EDUCATION INFORMATION: Instructions: Abdominal Pain, Adult Follow up: With: Address: When: Carlie Gerri [address] [place] [address] [address], [place] [address] Business (1) In 3 days 03/13/2018 DIAGNOSIS: Abdominal pain; Nausea & vomiting Normal [facility] ED Note-Physicianon 03-10-20 ED Note-Physician Basic Information Time Seen: Washington Maddox PA-C 03/10/2018 10:42 Chief Complaint was seen in ER twe. states they gave me meds and i didnt have a UTI. was sen home with meds. today woke with abdominal pain and vomiting. reporst it was red but has not eaten anything red. History of Present Illness 79-year-old female comes the ED for evaluation of abdominal pain. She has had progressive right-sided abdominal pain over the last week. She was seen in the ED a couple of days ago with negative urinalysis. She presents with continued pain, nausea or vomiting. She's had decreased appetite. She points to the right upper quadrant area tenderness. There is some radiation to the right flank. No diarrhea constipation. No urinary complaints. She was prescribed medication which she is taking without relief. Denies any chance of . Review of Systems Unless otherwise stated in this report or unable to obtain because of patient's clinical or mental status as evidenced by the medical record, the patient's positive and negative responses for review of systems for constitutional, eyes, ENT, cardiovascular, respiratory, gastrointestinal, neurological, genitourinary, musculoskeletal, and integument systems and related systems to the presenting problem are either as stated in the HPI or were not pertinent or were negative for the symptoms and/or complaints related to the presenting medical problem. Medical and Surgical History: Reviewed and noted Social history: Lives at home Tobacco: Denies Physical Exam Vitals & Measurements T: 36.8 ?C (Oral) HR: 96(Monitored) RR: 16 BP: 119/76 SpO2: 100% HT: 165 cm WT: 66 kg Nurses notes and vital signs reviewed and patient is not hypoxic. General: The patient appears well and in no significant distress Patient is resting comfortably on the exam bed. Skin: Warm, dry, no pallor noted. Head: Atraumatic. Neck: No JVD. Eye: Normal conjunctiva. Ears, Nose, Mouth, and Throat: Moist mucous membranes Cardiovascular: Strong distal pulses. Chest wall: Respiratory: Respirations are nonlabored. Back: Normal range of motion, no CVA tenderness. Musculoskeletal: Normal ROM with no gross deformity. Gastrointestinal: Abdomen is soft. There is mild tenderness over the right upper quadrant. No guarding, rebound or rigidity. No distention. Urological: Neurological: Awake and alert. No focal deficits. Follows commands. GCS 15. Psychiatric: Cooperative. Medical Decision Making Laboratory studies reviewed and noted. Patient was given a GI cocktail with improvement. With the right upper quadrant abdominal pain repeat ED vist we did obtain a gallbladder ultrasound, which is negative for acute findings. Patient discharged home on Phenergan and Prilosec, and is to follow-up with her PCP.Patient was encouraged to return to the ED if symptoms worsen or change. Assessment/Plan Abdominal pain Nausea & vomiting Orders: omeprazole, 40 mg = 1 cap(s), Oral, Daily, X 7 day(s), # 7 cap(s), Refills(s) 0 promethazine, 25 mg = 1 tab(s), Oral, TID, # 15 tab(s), Refills(s) 0 Automated Diff Basic Metabolic Panel Beta hCG Qual CBC w/ Auto Diff eGFR Hepatic Function Panel Lipase Level US Gallbladder Medications Administered Given Al hydroxide/Mg hydroxide/simethicone 200 mg-200 mg-20 mg/5 mL oral suspension, 30 mL, Oral Elixir, 10 mL, Oral lidocaine Viscous Top 2% Sofie 20 mL, 10 mL, Oral Disposition Plan Patient Discharge Condition Disposition: Discharged home Condition: Improved and stable Counseled: Patient and/or family were counseled to workup, results, treatment plan and follow-up recommendations Discharge Prescription List Prescriptions omeprazole 40 mg Cap-DR, 40 mg= 1 cap(s), Oral, Daily promethazine 25 mg Tab, 25 mg= 1 tab(s), Oral, TID Follow-up With When Contact Information Carlie Talley In 3 days 03/13/2018 EDT [address] [phone] Business (1) Additional Instructions: Patient Education Abdominal Pain, Adult Attestation Patient seen and evaluated by the physician assistant shift supervisor. Attending physician was present in the emergency department and supervised care. This report was transcribed using voice recognition software. Every effort was made to ensure accuracy, however, inadvertently computerized salesperson shoes mistakes may be present. Problem List/Past Medical History Ongoing Smoker Historical exercise induced scoliosis Procedure/Surgical History Denies. Medications Inpatient No active inpatient medications Home dicyclomine 20 mg Tab, 20 mg= 1 tab(s), Oral, QID Implanon 68 mg subcutaneous implant, 68 mg, SubCutaneous, Once Misc Medication Zofran ODT 4 mg Tab-Dis, 4 mg= 1 tab(s), Oral, q6hr Allergies No Known Allergies Social History Alcohol - Denies Alcohol Use, 05/26/2015 Substance Abuse - Denies Substance Abuse, 05/26/2015 Tobacco - Denies Tobacco Use, 05/26/2015 Lab Results WBC: 7.6 E9/L (03/10/18 10:55:00 EDT) RBC: 4.5 E12/L (03/10/18 10:55:00 EDT) Hgb: 13.3 gm/dL (03/10/18 10:55:00 EDT) Hct: 38.8 % (03/10/18 10:55:00 EDT) MCV: 86.4 fL (03/10/18 10:55:00 EDT) MCH: 29.5 pg (03/10/18 10:55:00 EDT) MCHC: 34.2 gm/dL (03/10/18 10:55:00 EDT) RDW: 13.4 % (03/10/18 10:55:00 EDT) Platelet: 221 E9/L (03/10/18 10:55:00 EDT) MPV: 8.2 fL (03/10/18 10:55:00 EDT) Neutro Auto: 62.5 % (03/10/18 10:55:00 EDT) Lymph Auto: 26.8 % (03/10/18 10:55:00 EDT) [place] Auto: 8.4 % (03/10/18 10:55:00 EDT) Eos Auto: 1.5 % (03/10/18 10:55:00 EDT) Basophil Auto: 0.8 % (03/10/18 10:55:00 EDT) Neutro Absolute: 4.8 E9/L (03/10/18 10:55:00 EDT) Lymph Absolute: 2 E9/L (03/10/18 10:55:00 EDT) [place] Absolute: 0.6 E9/L (03/10/18 10:55:00 EDT) Eos Absolute: 0.1 E9/L (03/10/18 10:55:00 EDT) Basophil Absolute: 0.1 E9/L (03/10/18 10:55:00 EDT) Glucose Lvl: 99 mg/dL (03/10/18 10:55:00 EDT) BUN: 13 mg/dL (03/10/18 10:55:00 EDT) Creatinine: 0.7 mg/dL (03/10/18 10:55:00 EDT) eGFR: >60 (03/10/18 10:55:00 EDT) eGFR AA: >60 (03/10/18 10:55:00 EDT) BUN/Creat Ratio: 19 (03/10/18 10:55:00 EDT) Sodium Lvl: 137 mmol/L (03/10/18 10:55:00 EDT) Potassium Lvl: 3.9 mmol/L (03/10/18 10:55:00 EDT) Chloride: 107 mmol/L (03/10/18 10:55:00 EDT) CO2: 23 mmol/L (03/10/18 10:55:00 EDT) AGAP: 11 mEq/L (03/10/18 10:55:00 EDT) Calcium Lvl: 8.9 mg/dL (03/10/18 10:55:00 EDT) Alk Phos: 55 Int._Unit/L (03/10/18 10:55:00 EDT) ALT: 16 Int._Unit/L (03/10/18 10:55:00 EDT) AST: 16 Int._Unit/L (03/10/18 10:55:00 EDT) Total Protein: 7.2 gm/dL (03/10/18 10:55:00 EDT) Albumin Lvl: 4.2 gm/dL (03/10/18 10:55:00 EDT) Globulin: 3 gm/dL (03/10/18 10:55:00 EDT) A/G Ratio: 1.4 (03/10/18 10:55:00 EDT) Bili Total: 0.8 mg/dL (03/10/18 10:55:00 EDT) Bili Direct: <0.1 (03/10/18 10:55:00 EDT) Bili Indirect: Unable to Calculate Abnormal (03/10/18 10:55:00 EDT) Lipase Lvl: 23 unit/L (03/10/18 10:55:00 EDT) Beta hCG Ql: NEGATIVE1 (03/10/18 10:55:00 EDT) Diagnostic Results US Gallbladder 03/10/18 14:00:19 IMPRESSION: NEGATIVE SONOGRAM OF RIGHT UPPER ABDOMEN WITH ATTENTION TO THE GALLBLADDER. COMMENT: Multiple sonographic images of the right upper abdomen with attention to the gallbladder were obtained. Gallbladder is unremarkable without gallstone or other pathology. Wall of the gallbladder is within normal limit. Common duct is not dilated. Liver is unremarkable. Pancreas is within normal limit. There is no hydronephrosis of the right kidney. Signed By: Duke Joyce M.D. [facility] Comment on above: Result Comment: Elec tronically Signed By: Washington Maddox PA-C\.br\Date and Time Signed: 03/10/18 15:36 EDT\.br\Electronically Co-Signed By: Matilda Mahmood DO\.br\Date and Time Co-Signed: 03/10/18 17:38 EDT ED Patient Education Noteon 03-10-2018 ED Patient Education Note Emergency Medicine Abdominal Pain Many things can cause abdominal pain. Usually, abdominal pain is not caused by a disease and will improve without treatment. It can often be observed and treated at home. Your health care provider will do a physical exam and possibly order blood tests and X-rays to help determine the seriousness of your pain. However, in many cases, more time must pass before a clear cause of the pain can be found. Before that point, your health care provider may not know if you need more testing or further treatment. HOME CARE INSTRUCTIONS Monitor your abdominal pain for any changes. The following actions may help to alleviate any discomfort you are experiencing: ? Only take fiwi-vfr-clrnqeq or prescription medicines as directed by your health care provider. ? Do not take laxatives unless directed to do so by your health care provider. ? Try a clear liquid diet (broth, tea, or water) as directed by your health care provider. Slowly move to a bland diet as tolerated. SEEK MEDICAL CARE IF: ? You have unexplained abdominal pain. ? You have abdominal pain associated with nausea or diarrhea. ? You have pain when you urinate or have a bowel movement. ? You experience abdominal pain that wakes you in the night. ? You have abdominal pain that is worsened or improved by eating food. ? You have abdominal pain that is worsened with eating fatty foods. ? You have a fever. SEEK IMMEDIATE MEDICAL CARE IF: ? Your pain does not go away within 2 hours. ? You keep throwing up (vomiting). ? Your pain is felt only in portions of the abdomen, such as the right side or the left lower portion of the abdomen. ? You pass bloody or black tarry stools. MAKE SURE YOU: ? Understand these instructions. ? ? Will watch your condition. ? ? Will get help right away if you are not doing well or get worse. ? Document Released: 02/23/2006 Document Revised: 05/21/2014 Document Reviewed: 01/23/2014 ExitCare? Patient Information ?2015 [employer]. This information is not intended to replace advice given to you by your health care provider. Make sure you discuss any questions you have with your health care provider. [facility] ED Patient Summaryon 018 ED Patient Summary [address] [address] Patient Discharge Instructions Person Information Name: YAEL TALLEY Age: 17 Years Arrival Date: 03/10/2018 10:30 AM Discharge Diagnosis: Abdominal pain; Nausea & vomiting Primary Care Physician: Carlie Talley MD Provider Information Primary Provider: Matilda Mahmood DO Advanced Runner Worker:Washington Maddox PA-C The exam and treatment you received in the Emergency Department were for an urgent problem and are not intended as complete care. It is important that you follow up with a doctor, nurse practitioner, or physician?s assistant shift supervisor for ongoing care. If your symptoms become worse or you do not improve as expected and you are unable to reach your usual health care provider, you should return to the Emergency Department. We are available 24 hours a day. YAEL TALLEY has been given the following list of patient education materials, prescriptions and follow-up instructions: Follow-up Instructions: With: Address: When: Carlie Talley [address] [place] [id number] Business (1) In 3 days 03/13/2018 In the event that this physician does not participate in your insurance network, please consult with your insurance company to find a nearby participating provider. Patient Education Materials: Abdominal Pain, Adult A MESSAGE TO ALL PATIENTS REGARDING OPIOIDS PRESCRIPTION OPIOIDS: WHAT YOU NEED TO KNOW Prescription opioids can be used to help relieve xymuwfjc-vh-ucolpo pain and are often prescribed following a surgery or injury, or for certain health conditions. These medications can be an important part of the treatment but also come with serious risks. It is important to work with your healthcare provider to make sure you are getting the safest, most effective care. WHAT ARE THE RISKS AND SIDE EFFECTS OF OPIOID USE? Prescription opioids carry serious risks of addiction and overdose, especially with prolonged use. An opioid overdose, often marked by slowed breathing, can cause sudden . The use of prescription opioids can have a number of side effects as well, even when taken as directed: ? Tolerance?meaning you might need to take more of the medication for the same pain relief ? Physical dependence?meaning you have symptoms of withdrawal when a medication is stopped ? Increased sensitivity to pain ? Constipation ? Nausea, vomiting, and dry mouth ? Sleepiness and dizziness ? Confusion ? Depression ? Low levels of testosterone that can result in lower sex drive, energy, and strength ? Itching and sweating RISKS ARE GREATER WITH: ? History of drug misuse, substance use disorder, or overdose ? Mental health conditions (such as depression or anxiety) ? Sleep apnea ? Older age (65 years and older) ? Avoid alcohol while taking prescription opioids. Also, unless specifically advised by your health care provider, medications to avoid include: ? Benzodiazepines (such as Xanax or Valium) ? Muscle relaxants (such as Soma or Flexeril) ? Hypnotics (such as Ambien or Lunesta) ? Other prescription opioids KNOW YOUR OPTIONS Talk to your health care provider about ways to manage your pain that don?t involve prescription opioids. Some of these options may actually work better and have fewer risks and side effects. Options may include: ? Pain relievers such as acetaminophen, ibuprofen, and naproxen ? Some medication that are also used for depression or seizures ? Physical therapy and exercise ? Cognitive behavioral therapy, a psychological, goal-directed approach, in which patients learn how to modify physical, behavioral, and emotional triggers of pain and stress. IF YOU ARE PRESCRIBED OPIOIDS FOR PAIN: ? Never take opioids in greater amounts or more often than prescribed. ? Follow up with your primary health care provider. o Work together to create a plan on how to manage your pain. o Talk about ways to help manage your pain that don?t involve prescription opioids. o Talk about any and all concerns and side effects. ? Help prevent misuse and abuse o Never sell or share prescription opioids. o Never use another person?s prescription opioids. ? Store prescription opioids in a secure place and out of reach of others (this may include visitors, children, friends, and family). ? Safely dispose of unused prescription opioids: Find your community drug take-back program or your pharmacy mail-back program, or flush them down the toilet, following guidance from the Food and Drug Administration (www.fda.gov/Drugs/ResourcesForYou). ? Visit www.cdc.gov/drugoverdose to learn about the risks of opioids abuse and overdose. ? If you believe you may be struggling with addiction, tell your health home health care coordinator and ask for guidance or call [facility]?S National Helpline at 7-655-054-AOZG. s Source: US Department of Health and Human Services/Center for Disease Control & Prevention [facility] Medications Given: Medication Dose Route Al hydroxide/Mg hydroxide/simethicone 30.00 mL Oral atropine/hyoscyamine/PB/scopolamine 10.00 mL Oral lidocaine topical 10.00 mL Oral Medication Information: New Medications Printed Prescriptions omeprazole (omeprazole 40 mg Cap-DR) 1 Capsules By Mouth every day for 7 Days. Refills: 0. promethazine (promethazine 25 mg Tab) 1 Tabs By Mouth 3 times a day. Refills: 0. Medications to Continue with No Changes Other Medications dicyclomine (dicyclomine 20 mg Tab) 1 Tabs By Mouth 4 times a day for 7 Days. Refills: 0. etonogestrel (Implanon 68 mg subcutaneous implant) 68 Milligram Subcutaneous Once. Non-Formulary Medication (Misc Medication) ondansetron (Zofran ODT 4 mg Tab-Dis) 1 Tabs By Mouth every 6 hours. Refills: 0. Comment: Pharmacy Information: Re Mustafa Thank you for choosing [facility] Patient Education Materials: Abdominal Pain Many things can cause abdominal pain. Usually, abdominal pain is not caused by a disease and will improve without treatment. It can often be observed and treated at home. Your health care provider will do a physical exam and possibly order blood tests and X-rays to help determine the seriousness of your pain. However, in many cases, more time must pass before a clear cause of the pain can be found. Before that point, your health care provider may not know if you need more testing or further treatment. HOME CARE INSTRUCTIONS Monitor your abdominal pain for any changes. The following actions may help to alleviate any discomfort you are experiencing: ? Only take oawo-ete-cgrxybj or prescription medicines as directed by your health care provider. ? Do not take laxatives unless directed to do so by your health care provider. ? Try a clear liquid diet (broth, tea, or water) as directed by your health care provider. Slowly move to a bland diet as tolerated. SEEK MEDICAL CARE IF: ? You have unexplained abdominal pain. ? You have abdominal pain associated with nausea or diarrhea. ? You have pain when you urinate or have a bowel movement. ? You experience abdominal pain that wakes you in the night. ? You have abdominal pain that is worsened or improved by eating food. ? You have abdominal pain that is worsened with eating fatty foods. ? You have a fever. SEEK IMMEDIATE MEDICAL CARE IF: ? Your pain does not go away within 2 hours. ? You keep throwing up (vomiting). ? Your pain is felt only in portions of the abdomen, such as the right side or the left lower portion of the abdomen. ? You pass bloody or black tarry stools. MAKE SURE YOU: ? Understand these instructions. ? ? Will watch your condition. ? ? Will get help right away if you are not doing well or get worse. ? Document Released: 02/23/2006 Document Revised: 05/21/2014 Document Reviewed: 01/23/2014 ExitCare? Patient Information ?2015 [employer]. This information is not intended to replace advice given to you by your health care provider. Make sure you discuss any questions you have with your health care provider. GERRI Soliz ALEXUS R , have received the following patient education materials/instructions and have verbalized understanding: Patient Education Materials: Abdominal Pain, Adult Follow-up Instructions: With: Address: When: Carlie Talley [address] [place] [address], [place] [address] Business (1) In 3 days 03/13/2018 Prescriptions: [omeprazole (omeprazole 40 mg Cap-DR)] [promethazine (promethazine 25 mg Tab)] Patient Signature Date Clinician/Nurse Signature Date 03/10/18 13:26:44 Normal [facility] Hep Func Panelon 03-10-2018 Bilirubin.direct mass conc UTC Abnormal 0.1-0.9 [facility] Comment on above: Result Comment: Resu lt verified by Discern Rule. Performed result UTC (Unable to Calculate) was sent as an Alpha code due the inability to calculate a valid numeric value. Performed By: #### 2 [id number], [id number], 6337018, 5172704, [id number], 7587950, [id number] ####[facility] [address] [place] [address] Albumin mass conc 1.4 g/dL Normal 1.1-2.2 [facility] Comment on above: Performed By: #### 2 607129, 7065703, 5947535, 3535699, 92370908, 4016260, 24254934 ####[facility] [address] [place] [address] Albumin mass conc 4.2 g/dL Normal 3.3-5.0 [facility] Comment on above: Performed By: #### 2 251184, 3578681, 7791543, 9982993, 80168375, 3999041, 31123710 ####[facility] [address] [place] [address] ALP enzyme act/vol 55 Int._Unit/L Normal 21-98 [facility] Comment on above: Performed By: #### 2 099540, 5403953, 1830419, 2594646, 25809153, 2081189, 94739435 ####[facility] [address] [place] [address] ALT No additional P-5'-P enz yme act/vol 16 Int._Unit/L Normal 6-46 [facility] Comment on above: Performed By: #### 2 782341, 1761017, 1327103, 1554101, 19888879, 2460493, 16749178 ####[facility] [address] [place] [address] AST enzyme act/vol 16 Int._Unit/L Normal 5-43 [facility] Comment on above: Performed By: #### 2 156714, 8517906, 8007182, 0252748, 62212864, 4231395, 37684046 ####[facility] [address] [place] [address] Bilirubin mass conc 0.8 mg/dL Normal 0.0-1.1 [facility] Comment on above: Performed By: #### 2 109927, 0820214, 3533864, 2561779, 78049925, 8216013, 45425126 ####[facility] [address] [place] [address] Bilirubin.direct mass conc mg/dL Normal 0.1-0.4 [facility] Comment on above: Performed By: #### 2 595011, 5944826, 8793359, 6158736, 05301606, 0481647, 03013724 ####[facility] [address] [place] [address] Globulin mass conc (S) 3.0 g/dL Normal 1.4-4.0 [facility] Comment on above: Performed By: #### 2 941936, 3047221, 1910955, 1213352, 33317390, 0513808, 74348816 ####[facility] [address] [place] [address] Protein mass conc 7.2 g/dL Normal 6.0-7.8 [facility] Comment on above: Performed By: #### 2 853916, 7927145, 2918185, 1138200, 87641586, 3126794, 91195426 ####[facility] [address] [place] [address] Lipase Levelon 03-10-2018 Lipase enzyme act/vol 23 unit/L Normal 13-[address] [facility] Comment on above: Performed By: #### 2 982379, 3697776, 9028750, 7046117, 90039599, 6491053, 55451812 #### [facility] [address] [place] [address] Progress Note-Nurseon 2017 Protein mass conc Pt A&OX4, RR even an d unlabored, skin w/d/i, NAD. Vitals stable. Discharge instruction given to patient with work/school note and scripts x2, verbalized understanding. Discharged home, ambulatory with steady gait, denied any other needs at this time. Normal [facility] US Gallbladderon 03-10-2018 US Gallbladder Exam Date/Time: 03/10/2018 11:58 EDT Reason for Exam: Abdominal pain Report IMPRESSION: NEGATIVE SONOGRAM OF RIGHT UPPER ABDOMEN WITH ATTENTION TO THE GALLBLADDER. COMMENT: Multiple sonographic images of the right upper abdomen with attention to the gallbladder were obtained. Gallbladder is unremarkable without gallstone or other pathology. Wall of the gallbladder is within normal limit. Common duct is not dilated. Liver is unremarkable. Pancreas is within normal limit. There is no hydronephrosis of the right kidney. FINAL REPORT Dictated: 03/10/2018 2:00 pm Duke Joyce M.D. Signed (Electronic Signature): 03/10/2018 2:21 pm Signed by: Duke Joyce M.D. Transcribed by: dejan Technologist: HW Normal [facility] eGFRon 03-10-2018 GFR/1.73 sq M predicted kary g blacks MDRD vol rate/area (S/P/Bld) mL/min/{1.73_m2} Normal >=[address] [facility] Comment on above: Order Comment: Order added by Discern Expert. Result Comment: eGFR is race adjusted. AA=. Performed By: #### 2 452124, 5936004, 6485616, 0587063, 28424006, 3110491, 90734480 ####[facility] [address] [place] [address] GFR/1.73 sq M predicted kary g non-blacks MDRD vol rate/area (S/P/Bld) mL/min/{1.73_m2} Normal >=[address] [facility] Comment on above: Order Comment: Order added by Discern Expert. Result Comment: Door Worker del kidney disease could be indicated at eGFR's of less than 60 mL/min/1.73m2. Kidney failure is indicated at less than 15 mL/min/1.73m2. Performed By: #### 2 282219, 1960070, 4417214, 8230673, 75839286, 8587573, 24488767 ####[facility] [address] [place] [address] Coding Summary.on 03-09-2018 Coding Summary. CODING DATE: 018 FINAL [facility] STATUS: Home (Routine DC) PAYOR: [place] ADMIT DX: REASON FOR VISIT DX: R10.33 Periumbilical pain FINAL DX: PRINCIPAL: R10.33 Periumbilical pain SECONDARY: R10.9 Unspecified abdominal pain M54.5 Low back pain PROCEDURES DOCTOR NAME DATE NOTE: The code number assigned matches the documented diagnosis and / or procedure in the patient's chart. However, the narrative phrase printed from the coding software may appear abbreviated, or result in slightly different terminology. Coded By: Beckie Campos Date Saved: 03/09/2018 12:14 pm Normal [facility] ED Clinical Summaryon 2017 ED Clinical Summary (Inserted Image. Violetta ble to display) [address] [address] ED Clinical Summary Person Information Name: YAEL TALLEY/[place] Age: 17 Years : 2000 12:00 AM Sex: Female Language: Citizen Of [place] PCP: NONE, XXXX Marital Status: Single Phone: [phone] Visit Id: Visit Reason: Back pain; R SIDE PAIN Speciality: Acuity: 4 Enc Type: Emergency Med Service: Emergency Arrival: 03/08/2018 1:44 PM Discharge: 03/08/2018 3:39 PM LOS: 000 01:55 Checkin: 03/08/2018 1:44 PM Checkout: 03/08/2018 3:39 PM Dispo Type: Home (Routine DC) EVENTS: Event Name Event Status Request Date/Time Start Date/Time Complete Date/Time Arrive Complete 03/08/2018 1:44 PM 03/08/2018 1:44 PM 03/08/2018 1:44 PM Document Home Meds Complete 03/08/2018 1:44 PM 03/08/2018 2:05 PM 03/08/2018 2:05 PM Triage Complete 03/08/2018 1:44 PM 03/08/2018 1:54 PM 03/08/2018 1:54 PM Bed Assign Complete 03/08/2018 1:54 PM 03/08/2018 1:54 PM 03/08/2018 1:[address] Exam Complete 03/08/2018 1:54 PM 03/08/2018 1:55 PM 03/08/2018 1:55 PM RN Exam Complete 03/08/2018 1:54 PM 03/08/2018 2:02 PM 03/08/2018 2:02 PM Registration Complete 03/08/2018 1:55 PM 03/08/2018 2:24 PM 03/08/2018 2:[address] Exam Complete 03/08/2018 1:59 PM 03/08/2018 1:59 PM 03/08/2018 1:59 PM Pending Labs Complete 03/08/2018 2:07 PM 03/08/2018 2:56 PM Lab Complete 03/08/2018 2:07 PM 03/08/2018 2:56 PM Urine Collect Complete 03/08/2018 2:07 PM 03/08/2018 2:56 PM Meds Admin Complete 03/08/2018 2:07 PM 03/08/2018 2:28 PM Reg Complete Request 03/08/2018 2:24 PM Reg Bed Request Complete 03/08/2018 2:24 PM 03/08/2018 2:24 PM 03/08/2018 2:24 PM Meds Admin Complete 03/08/2018 2:59 PM 03/08/2018 3:05 PM Discharge Complete 03/08/2018 3:32 PM 03/08/2018 3:40 PM 03/08/2018 3:40 PM Transfer Complete 03/08/2018 3:40 PM 03/08/2018 3:40 PM 03/08/2018 3:40 PM ADDRESS: [address] [place] [phone] PHYS DOC NOTES: MEDICAL INFORMATION: Prescriptions Given: Prescription Display dicyclomine (dicyclomine 20 mg Tab) 20 mg = 1 tab(s), Oral, QID, X 7 day(s), # 28 tab(s), Refills(s) 0 ondansetron (Zofran ODT 4 mg Tab-Dis) 4 mg = 1 tab(s), Oral, q6hr, # 10 tab(s), Refills(s) 0 PATIENT EDUCATION INFORMATION: Instructions: Abdominal Pain, Adult Follow up: With: Address: When: Virgil Diggs [address] [place] [address], [place] [id number] [facility] () In 3 days 03/11/2018 DIAGNOSIS: Abdominal pain Normal [facility] ED Note-Nursingon 03-08-2018 ED Note-Nursing Patient: LILLI TALLEY Age: 17 years Sex: Female : 2000 Associated Diagnoses: None Author: Chitra KIDD, Macy Chisholm Progress Note Relays that she is feeling a little bit better. PA aware, awaiting plan of care. Normal [facility] ED Note-Nursing Patient: LILLI TALLEY Age: 17 years Sex: Female : 2000 Associated Diagnoses: None Author: Chitra KIDD, Macy Chisholm Progress Note 1500: Reports some nausea after previous NATHANIEL aguillon aware, orders rec'd. Normal [facility] ED Note-Physicianon 03-08-20 ED Note-Physician Basic Information Time Seen: Geoffrey HERNANDEZ Herberth J 03/08/2018 13:55 Chief Complaint Patient states she started having low back pain about a week and a half ago. This pain has now moved to her umbilicus. Patient denies urinary symptoms, fever, nausea, and vomiting. History of Present Illness 17-year-old female presents to the ED for evaluation of periumbilical tenderness and 1 week of mild right-sided flank pain. She states no fevers or chills. She denies nausea or vomiting. She has no diarrhea or constipation. She does not have a local family doctor. The patient states she missed work and needs to be evaluated. Patient has no chronic abdominal ROM arms and has never had an abdominal surgery. She states that she has a implanted device for control and states there is no chance of . She does not have regular periods. Review of Systems Additional ROS info: Except as noted in the above Review of Systems and in the History of Present Illness all other systems have been reviewed and are negative or noncontributory. Physical Exam Vitals & Measurements T: 36.6 ?C (Oral) HR: 87(Peripheral) RR: 16 BP: 114/76 SpO2: 100% HT: 165 cm WT: 66 kg BMI: 24.24 Nurses note and vital signs reviewed and patient is not hypoxic. General: The patient appears well and in no apparent distress. Patient is resting comfortably on cart. Skin: Warm, dry, no pallor noted. There is no rash noted. Head: Normocephalic, atraumatic Eye: Normal conjunctiva Ears, Nose, Mouth, and Throat: oral mucosa is moist Cardiovascular: Regular Rate and Rhythm Respiratory: Patient is in no distress, no accessory muscle use, lungs are clear to auscultation, no wheezing, rales or rhonchi Back: non-tender, mild right-sided CVA tenderness bilaterally to percussion. GI: Normal bowel sounds, no masses appreciated. No rebound, guarding, or rigidity noted.. Umbilical Musculoskeletal: The patient has no evidence of calf tenderness, no pitting edema, symmetrical pulses noted bilaterally Neurological: A&O x4, normal speech Psychiatric: Cooperative Medical Decision Making The patient did not show any signs of kidney infection or UTI. The patient was feeling better after Zofran, Bentyl and Pepcid. The patient isn't sure prescriptions of both. She does not have local family doctor and is hemodynamically stable. Given the name of Dr. Diggs who is university relations recruiter for family medicine and advised the pain continues to follow-up with her. The patient requested work excuse which was given. Patient is to be on clear liquids and heavy foods be avoided. She understands and agrees and has no questions. Assessment/Plan Abdominal pain Orders: dicyclomine, 20 mg = 1 tab(s), Oral, QID, X 7 day(s), # 28 tab(s), Refills(s) 0 ondansetron, 4 mg = 1 tab(s), Oral, q6hr, # 10 tab(s), Refills(s) 0 UA With Cult Reflex Medications Administered Given dicyclomine 20 mg Tab, 20 mg, Oral famotidine 20 mg Tab, 40 mg, Oral Zofran ODT 4 mg Tab-Dis, 4 mg, Oral Disposition Plan Patient Discharge Condition Stable Discharge Disposition Discharged home Discharge Prescription List Prescriptions dicyclomine 20 mg Tab, 20 mg= 1 tab(s), Oral, QID Zofran ODT 4 mg Tab-Dis, 4 mg= 1 tab(s), Oral, q6hr Follow-up With When Contact Information Virgil Dontae In 3 days 03/11/2018 EDT [address] [place] [address] Business (1) Additional Instructions: Patient Education Abdominal Pain, Adult Attestation The patient's care was supervised by Dr. Gonzalez including history, physical, medical decision making, and disposition. Teaching-Supervisory Addendum-Brief I participated in the following activities of this patients care: the medical history. I personally performed: supervision of the patient's care, the medical history, the physical exam, the medical decision making. The case was discussed with: the physician assistant shift supervisor, Herberth Hale PA-C. Procedures: I directly supervised the entire procedure. Evaluation and management service: I agree with the evaluation and management decisions made in this patient's care. Results interpretation: I agree with the study interpretation in this patient's care, I agree with the documentation of the study interpretation. Problem List/Past Medical History Ongoing No qualifying data Historical exercise induced scoliosis Procedure/Surgical History Denies. Medications Inpatient No active inpatient medications Home azithromycin 250 mg Tab 5-day Dose Pack (Z-Brandin), See Instructions Bromfed DM oral syrup, 5 mL, Oral, QID, PRN dicyclomine 20 mg Tab, 20 mg= 1 tab(s), Oral, QID Implanon 68 mg subcutaneous implant, 68 mg, SubCutaneous, Once MiraLax 3350 Oral Pwdr for Recon 249 gram, 17 gram, Oral, Daily Misc Medication naproxen 500 mg Tab, 500 mg= 1 tab(s), Oral, BID Zofran ODT 4 mg Tab-Dis, 4 mg= 1 tab(s), Oral, q6hr Allergies No Known Allergies Social History Alcohol - Denies Alcohol Use, 05/26/2015 Substance Abuse - Denies Substance Abuse, 05/26/2015 Tobacco - Denies Tobacco Use, 05/26/2015 Lab Results UA Spec Desc: Clean Catch (03/08/18 14:24:00 EDT) UA Color: Yellow2 (03/08/18 14:24:00 EDT) UA Clarity: Cloudy2 Abnormal (03/08/18 14:24:00 EDT) UA Spec Grav: 1.020 (03/08/18 14:24:00 EDT) UA pH: 7.0 (03/08/18 14:24:00 EDT) UA Protein: NEGATIVE1 (03/08/18 14:24:00 EDT) UA Glucose: NEGATIVE1 (03/08/18 14:24:00 EDT) UA Ketones: NEGATIVE1 (03/08/18 14:24:00 EDT) UA Bili: NEGATIVE1 (03/08/18 14:24:00 EDT) UA Blood: NEGATIVE1 (03/08/18 14:24:00 EDT) UA Nitrite: NEGATIVE1 (03/08/18 14:24:00 EDT) UA Urobilinogen: 0.2 (03/08/18 14:24:00 EDT) UA Leuk Est: NEGATIVE1 (03/08/18 14:24:00 EDT) UA RBC: 0-3 (03/08/18 14:24:00 EDT) UA Squam Epithelial: 5-8 (03/08/18 14:24:00 EDT) UA WBC: 0-5 (03/08/18 14:24:00 EDT) UA Amorph Abbi: Present (03/08/18 14:24:00 EDT) UA Mucous: Trace2 (03/08/18 14:24:00 EDT) Diagnostic Results No qualifying data available. Normal [facility] Comment on above: Result Comment: Elec tronically Signed By: Herberth Hale PA-C\.br\Date and Time Signed: 03/08/18 17:34 EDT\.br\Electronically Co-Signed By: Madhavi Scruggs, Parag Hernandez\.br\Date and Time Co-Signed: 03/08/18 19:12 EDT ED Patient Education Noteon 03-08-2018 ED Patient Education Note Emergency Medicine Abdominal Pain Many things can cause abdominal pain. Usually, abdominal pain is not caused by a disease and will improve without treatment. It can often be observed and treated at home. Your health care provider will do a physical exam and possibly order blood tests and X-rays to help determine the seriousness of your pain. However, in many cases, more time must pass before a clear cause of the pain can be found. Before that point, your health care provider may not know if you need more testing or further treatment. HOME CARE INSTRUCTIONS Monitor your abdominal pain for any changes. The following actions may help to alleviate any discomfort you are experiencing: ? Only take voyg-bxp-jxednnh or prescription medicines as directed by your health care provider. ? Do not take laxatives unless directed to do so by your health care provider. ? Try a clear liquid diet (broth, tea, or water) as directed by your health care provider. Slowly move to a bland diet as tolerated. SEEK MEDICAL CARE IF: ? You have unexplained abdominal pain. ? You have abdominal pain associated with nausea or diarrhea. ? You have pain when you urinate or have a bowel movement. ? You experience abdominal pain that wakes you in the night. ? You have abdominal pain that is worsened or improved by eating food. ? You have abdominal pain that is worsened with eating fatty foods. ? You have a fever. SEEK IMMEDIATE MEDICAL CARE IF: ? Your pain does not go away within 2 hours. ? You keep throwing up (vomiting). ? Your pain is felt only in portions of the abdomen, such as the right side or the left lower portion of the abdomen. ? You pass bloody or black tarry stools. MAKE SURE YOU: ? Understand these instructions. ? ? Will watch your condition. ? ? Will get help right away if you are not doing well or get worse. ? Document Released: 02/23/2006 Document Revised: 05/21/2014 Document Reviewed: 01/23/2014 ExitCare? Patient Information ?2015 [employer]. This information is not intended to replace advice given to you by your health care provider. Make sure you discuss any questions you have with your health care provider. Normal [facility] ED Patient Summaryon 018 ED Patient Summary [address] [address] Patient Discharge Instructions Person Information Name: YAEL TALLEY Age: 17 Years Arrival Date: 03/08/2018 1:44 PM Discharge Diagnosis: Abdominal pain Primary Care Physician: NONE, XXXX Provider Information Primary Provider: Parag Hendrickson M.D. Advanced Runner Worker:Herberth Hale PA-C The exam and treatment you received in the Emergency Department were for an urgent problem and are not intended as complete care. It is important that you follow up with a doctor, nurse practitioner, or physician?s assistant shift supervisor for ongoing care. If your symptoms become worse or you do not improve as expected and you are unable to reach your usual health care provider, you should return to the Emergency Department. We are available 24 hours a day. YAEL TALLEY has been given the following list of patient education materials, prescriptions and follow-up instructions: Follow-up Instructions: With: Address: When: Virgil Diggs [address] [place] [address], [facility] [place] [place] [address] Business (1) In 3 days 03/11/2018 In the event that this physician does not participate in your insurance network, please consult with your insurance company to find a nearby participating provider. Patient Education Materials: Abdominal Pain, Adult A MESSAGE TO ALL PATIENTS REGARDING OPIOIDS PRESCRIPTION OPIOIDS: WHAT YOU NEED TO KNOW Prescription opioids can be used to help relieve avoekrbi-pg-znzkwy pain and are often prescribed following a surgery or injury, or for certain health conditions. These medications can be an important part of the treatment but also come with serious risks. It is important to work with your healthcare provider to make sure you are getting the safest, most effective care. WHAT ARE THE RISKS AND SIDE EFFECTS OF OPIOID USE? Prescription opioids carry serious risks of addiction and overdose, especially with prolonged use. An opioid overdose, often marked by slowed breathing, can cause sudden . The use of prescription opioids can have a number of side effects as well, even when taken as directed: ? Tolerance?meaning you might need to take more of the medication for the same pain relief ? Physical dependence?meaning you have symptoms of withdrawal when a medication is stopped ? Increased sensitivity to pain ? Constipation ? Nausea, vomiting, and dry mouth ? Sleepiness and dizziness ? Confusion ? Depression ? Low levels of testosterone that can result in lower sex drive, energy, and strength ? Itching and sweating RISKS ARE GREATER WITH: ? History of drug misuse, substance use disorder, or overdose ? Mental health conditions (such as depression or anxiety) ? Sleep apnea ? Older age (65 years and older) ? Avoid alcohol while taking prescription opioids. Also, unless specifically advised by your health care provider, medications to avoid include: ? Benzodiazepines (such as Xanax or Valium) ? Muscle relaxants (such as Soma or Flexeril) ? Hypnotics (such as Ambien or Lunesta) ? Other prescription opioids KNOW YOUR OPTIONS Talk to your health care provider about ways to manage your pain that don?t involve prescription opioids. Some of these options may actually work better and have fewer risks and side effects. Options may include: ? Pain relievers such as acetaminophen, ibuprofen, and naproxen ? Some medication that are also used for depression or seizures ? Physical therapy and exercise ? Cognitive behavioral therapy, a psychological, goal-directed approach, in which patients learn how to modify physical, behavioral, and emotional triggers of pain and stress. IF YOU ARE PRESCRIBED OPIOIDS FOR PAIN: ? Never take opioids in greater amounts or more often than prescribed. ? Follow up with your primary health care provider. o Work together to create a plan on how to manage your pain. o Talk about ways to help manage your pain that don?t involve prescription opioids. o Talk about any and all concerns and side effects. ? Help prevent misuse and abuse o Never sell or share prescription opioids. o Never use another person?s prescription opioids. ? Store prescription opioids in a secure place and out of reach of others (this may include visitors, children, friends, and family). ? Safely dispose of unused prescription opioids: Find your community drug take-back program or your pharmacy mail-back program, or flush them down the toilet, following guidance from the Food and Drug Administration (www.fda.gov/Drugs/ResourcesForYou). ? Visit www.cdc.gov/drugoverdose to learn about the risks of opioids abuse and overdose. ? If you believe you may be struggling with addiction, tell your health home health care coordinator and ask for guidance or call [facility]?S National Helpline at 3-886-061-KWKR. h Source: US Department of Health and Human Services/Center for Disease Control & Prevention [facility] Medications Given: Medication Dose Route dicyclomine 20.00 mg Oral famotidine 40.00 mg Oral ondansetron 4.00 mg Oral Medication Information: New Medications Printed Prescriptions dicyclomine (dicyclomine 20 mg Tab) 1 Tabs By Mouth 4 times a day for 7 Days. Refills: 0. ondansetron (Zofran ODT 4 mg Tab-Dis) 1 Tabs By Mouth every 6 hours. Refills: 0. Medications to Continue with No Changes Other Medications azithromycin (azithromycin 250 mg Tab 5-day Dose Pack (Z-Brandin)) as directed on package labeling. Refills: 0. brompheniramine/dextromethorphan/PSE (Bromfed DM oral syrup) 5 Milliliter By Mouth 4 times a day as needed for cold symptoms. Refills: 0. etonogestrel (Implanon 68 mg subcutaneous implant) 68 Milligram Subcutaneous Once. naproxen (naproxen 500 mg Tab) 1 Tabs By Mouth 2 times a day. with food. Refills: 0. Non-Formulary Medication (Misc Medication) polyethylene glycol 3350 (MiraLax 3350 Oral Pwdr for Recon 249 gram) 17 Gram By Mouth every day. dissolve in water or juice. Refills: 0. Comment: Pharmacy Information: Thank you for choosing [facility] Patient Education Materials: Abdominal Pain Many things can cause abdominal pain. Usually, abdominal pain is not caused by a disease and will improve without treatment. It can often be observed and treated at home. Your health care provider will do a physical exam and possibly order blood tests and X-rays to help determine the seriousness of your pain. However, in many cases, more time must pass before a clear cause of the pain can be found. Before that point, your health care provider may not know if you need more testing or further treatment. HOME CARE INSTRUCTIONS Monitor your abdominal pain for any changes. The following actions may help to alleviate any discomfort you are experiencing: ? Only take [id number] or prescription medicines as directed by your health care provider. ? Do not take laxatives unless directed to do so by your health care provider. ? Try a clear liquid diet (broth, tea, or water) as directed by your health care provider. Slowly move to a bland diet as tolerated. SEEK MEDICAL CARE IF: ? You have unexplained abdominal pain. ? You have abdominal pain associated with nausea or diarrhea. ? You have pain when you urinate or have a bowel movement. ? You experience abdominal pain that wakes you in the night. ? You have abdominal pain that is worsened or improved by eating food. ? You have abdominal pain that is worsened with eating fatty foods. ? You have a fever. SEEK IMMEDIATE MEDICAL CARE IF: ? Your pain does not go away within 2 hours. ? You keep throwing up (vomiting). ? Your pain is felt only in portions of the abdomen, such as the right side or the left lower portion of the abdomen. ? You pass bloody or black tarry stools. MAKE SURE YOU: ? Understand these instructions. ? ? Will watch your condition. ? ? Will get help right away if you are not doing well or get worse. ? Document Released: 02/23/2006 Document Revised: 05/21/2014 Document Reviewed: 01/23/2014 ExitCare? Patient Information ?2014 [employer]. This information is not intended to replace advice given to you by your health care provider. Make sure you discuss any questions you have with your health care provider. GERRI Soliz ALEXUS R , have received the following patient education materials/instructions and have verbalized understanding: Patient Education Materials: Abdominal Pain, Adult Follow-up Instructions: With: Address: When: Virgil Diggs [address] [place] [address], [facility], [place] [address] [facility] (6) In 3 days 03/11/2018 Prescriptions: [dicyclomine (dicyclomine 20 mg Tab)] [ondansetron (Zofran ODT 4 mg Tab-Dis)] Patient Signature Date Clinician/Nurse Signature Date 03/08/18 15:40:08 Normal [facility] UA With Cult Reflexon 2017 Bilirubin Ql (U) Negative Normal Negative [facility] Comment on above: Performed By: #### 1 [id number] #### [facility] [address] [place] [address] Clarity Nom (U) CLOUDY Abnormal Clear [facility] Comment on above: Performed By: #### 1 [id number] #### [facility] [address] [place] [address] Color Nom (U) YELLOW Normal Yellow [facility] Comment on above: Performed By: #### 1 [id number] #### [facility] [address] [place] [address] Crystals LM Ql (Urine sed) Present Normal [facility] Comment on above: Performed By: #### 1 [id number] #### [facility] [address] [place] [address] Epithelial cells.squamous LM .HPF #/area (Urine sed) 5-8 Normal 0-2 [facility] Comment on above: Performed By: #### 1 [id number] #### [facility] [address] [place] [address] Glucose Test strip mass conc (U) Negative Normal Neg ative [facility] Comment on above: Performed By: #### 1 [id number] #### [facility] [address] [place] [address] Hemoglobin Ql (U) Negative Normal Negative [facility] Comment on above: Performed By: #### 1 [id number] #### [facility] [address] [place] [address] Ketones mass conc (U) Negative Normal Negative Fis [facility] Comment on above: Performed By: #### 1 [id number] #### [facility] [address] [place] [address] [place].plasma/[place].RBC mass ratio (Bld) 0-3 Nor mal 0-3 [facility] Comment on above: Performed By: #### 1 [id number] #### [facility] [address] [place] [address] Mucus Ql (Urine sed) TRACE Normal Fish [facility] Comment on above: Performed By: #### 1 [id number] #### [facility] [address] [place] [address] Nitrite Ql (U) Negative Normal Negative [facility] Comment on above: Performed By: #### 1 [id number] #### [facility] [address] [place] [address] pH (U) 7.0 [pH] 5.0-9.0 [facility] Comment on above: Performed By: #### 1 [id number] #### [facility] [address] [place] [address] Protein mass conc (U) Negative Normal Negative Fis [facility] Comment on above: Performed By: #### 1 [id number] #### [facility] [address] [place] [address] Specific gravity Relative Density (U) 1.020 1.005-1.030 [facility] Comment on above: Performed By: #### 1 [id number] #### [facility] [address] [place] [address] UA Spec Desc Clean Catch Normal [facility] Comment on above: Performed By: #### 1 [id number] #### [facility] [address] [place] [address] Urobilinogen Qn (U) 0.2 {Carlos'U}/dL Normal 0.0-1.0 [facility] Comment on above: Performed By: #### 1 [id number] #### [facility] [address] [place] [address] WBC Auto Ql (U) Negative Normal Negative [facility] Comment on above: Performed By: #### 1 [id number] #### [facility] [address] [place] [address] WBC LM.HPF #/area (Urine sed) 0-5 Normal 0-5 [facility] Comment on above: Performed By: #### 1 [id number] #### [facility] [address] [place] [address] ED Noteon 08-01-2017 HIM IP Note OR Junior Account Manager Normal [facility] ED Provider Noteon 8 HIM IP Note OR Junior Account Manager Normal [facility] H Pylori Breath Teston 06-26 H Pylori Breath Test Negative Normal Negative [facility] Comment on above: Result Comment: (NOT E)INTERPRETIVE INFORMATION: H. pylori Breath Paxton negative result does not rule out the possibility of H.pyloriinfection. If clinical signs are suggestive of H. pyloriinfection, retest with a new specimen or an alternate method.Known causes of false-negative results include:1. Use of antibiotics, proton pump inhibitors, and bismuth preparations during the preceding 2 weeks.2. Administration of the breath test less than 4 weeks after completion of definitive therapy to eradicate H. pylori.3. Premature or late collection of the post-dose specimen.Known causes of false-positive results include:1. Patients with achlorhydria.2. Rinsing the testing solution in the mouth, which can allow contact with urease-positive bacteria.3. The presence of other gastric spiral organisms such as Helicobacter heilmanii.Performed by [facility],[address] [place] [id number] [email or web address], Yan Pringle MD, Lab. DirectorPerformed at [facility] [address] [place] [address] [phone] Performed By: #### C DP, CP, LIP ####[place] [address] [place] [phone] XR ABDOMEN LIMITED (KUB)on 0 06-24-2017 XR ABDOMEN LIMITED (KUB) KUB 2 filmsHISTORY: Calcium oxalate crystals in the urine. Right flank pain with percussion. Acute cystitis with hematuria, flank pain.No comparisonFINDINGS: Moderate stool throughout the colon with no renal ureteral or bladder calculi.IMPRESSION: Normal KUB.Interpreted by:MARYAN Flores Jr.igned by:Alex Gomez Jr., MD06/24/17inal result Normal [facility] ital Cult,Urineon 06-22-2017 Cult,Urine Specimen Description .URINE, MIDSTREAM Performed at [facility] [address] [place] [address] [phone] Special Requests NOT REPORTEDCulture NO SIGNIFICANT GROWTH Performed at [address] [id number] [phone] Report Status FINAL 06/22/2017 Normal [facility] Comment on above: Performed By: #### U RC ####[address] [id number] [facility] [facility] [place] [phone] CBC with Diffon 06-21-2017 Abs. Basophil 0.00 k/uL Normal 0.0-0.2 [facility] Comment on above: Result Comment: Perf ormed at [facility] [address] [place] [address] Performed By: #### C DP, CP, LIP ####[facility] [place] [address] Abs.Neutrophil (Seg) 13.50 k/uL High 2.5-7.0 [facility] Comment on above: Performed By: #### C DP, CP, LIP ####[facility] [place] [address] Auto Diff Performed YES Normal [facility] Comment on above: Performed By: #### C DP, CP, LIP ####[facility] [place] [address] Basophils/100 WBC Auto (Bld) 0 % Normal 0-2 [facility] Comment on above: Performed By: #### C DP, CP, LIP ####[place] [address] [facility] [place] [address] Eosinophils 0.20 10*3/uL Normal 0.0-0.4 [facility] Comment on above: Performed By: #### C DP, CP, LIP ####[facility] [facility] [place] [address] Eosinophils/100 leukocytes 1 % Normal 0-5 [facility] Comment on above: Performed By: #### C DP, CP, LIP ####[facility] [place] [address] Erythrocyte distribution wid th Auto Ratio (RBC) 13.7 % Normal 12.1-15.2 [facility] Comment on above: Performed By: #### C DP, CP, LIP ####[facility] [facility] [place] [address] Erythrocytes (RBC) 5.00 10*6/uL Normal 4.0-5.2 [facility] Comment on above: Performed By: #### C DP, CP, LIP ####[facility] [id number] Hematocrit (HCT) 42.4 % Normal 36-46 [facility] Comment on above: Performed By: #### C DP, CP, LIP ####[facility] [place] [address] Hemoglobin mass conc (Bld) 14.4 g/dL Normal 12.0-16.0 [facility] Comment on above: Performed By: #### C DP, CP, LIP ####[facility] [place] [address] Lymphocytes 1.40 10*3/uL Normal 1.2-5.2 [facility] Comment on above: Performed By: #### C DP, CP, LIP ####[facility] [place] [address] Lymphocytes/100 leukocytes 9 % Low 15-40 [facility] Comment on above: Performed By: #### C DP, CP, LIP ####[place] [address] [place] [address] MCH 28.7 pg Normal 25-35 [facility] Comment on above: Performed By: #### C DP, CP, LIP ####[facility] [place] [address] MCHC mass conc (RBC) 33.9 g/dL Normal 31-37 [facility] Comment on above: Performed By: #### C DP, CP, LIP ####[facility] [place] [address] MCV 84.8 fL Normal 78-102 [facility] Comment on above: Performed By: #### C DP, CP, LIP ####[facility] [place] [address] Monocytes 1.00 10*3/uL Normal 0.0-1.0 [facility] Comment on above: Performed By: #### C DP, CP, LIP ####[facility] [place] [address] Monocytes/100 leukocytes 6 % Normal 4-8 [facility] Comment on above: Performed By: #### C DP, CP, LIP ####[facility] [place] [address] Neutrophil (Seg) 84 % High 47-75 [facility] Comment on above: Performed By: #### C DP, CP, LIP ####[facility] [place] [address] Platelets 226 10*3/uL Normal 140-450 [facility] Comment on above: Performed By: #### C DP, CP, LIP ####[facility] [place] [address] WBC (Leukocytes) 16.1 10*3/uL High 4.5-13.5 [facility] Comment on above: Performed By: #### C DP, CP, LIP ####[facility] [place] [address] Erythrocyte morphology NOT REPORTED Normal [facility] Comment on above: Performed By: #### C DP, CP, LIP ####[facility] [place] [address] Erythrocytes (RBC) NOT REPORTED Normal [facility] Comment on above: Performed By: #### C DP, CP, LIP ####[facility] [place] [address] Granulocytes/100 WBC (Bld) NOT REPORTED Normal 0.00-0. 30 [facility] Comment on above: Performed By: #### C DP, CP, LIP ####[facility] [place] [address] Immature granulocytes #/vol (Bld) NOT REPORTED Normal 0 [facility] Comment on above: Performed By: #### C DP, CP, LIP ####[facility] [place] [address] Platelet mean volume (PMV) NOT REPORTED Normal 6.0-12. 0 [facility] Comment on above: Performed By: #### C DP, CP, LIP ####[facility] [facility] [place] [address] Platelets NOT REPORTED Normal [facility] Comment on above: Performed By: #### C DP, CP, LIP ####[facility] [place] [address] WBC Morphology NOT REPORTED Normal [facility] Comment on above: Performed By: #### C DP, CP, LIP ####[facility] [place] [address] Comp Metabolic Profon 2017 (cont.) Normal [facility] Comment on above: Result Comment: Aver age GFR for <20 years old not available.Chronic Kidney Disease: <60 mL/min/1.73sq mKidney failure: <15 mL/min/1.73sq meGFR calculated using average adult body mass. Additional eGFR calculator available at:http://www.[employer].com/multiple_crcl_2012.htmPerformed at [facility] [address] [place], [place] [phone] Performed By: #### C DP, CP, LIP ####[facility] [place] [address] Alanine aminotransferase (ALT) 12 U/L Normal 5-33 [facility] Comment on above: Performed By: #### C DP, CP, LIP ####[facility] [facility] [place] [address] Albumin 4.0 g/dL Normal 3.5-5.2 [facility] Comment on above: Performed By: #### C DP, CP, LIP ####[facility] [facility] [place] [address] Alkaline Phos 70 U/L Normal 35-104 [facility] Comment on above: Performed By: #### C DP, CP, LIP ####[facility] [place] [address] Anion gap 14 mmol/L Normal 8-16 [facility] Comment on above: Performed By: #### C DP, CP, LIP ####[place] [address] [place] [address] Aspartate aminotransferase (AST) 10 U/L Normal <32 [facility] Comment on above: Performed By: #### C DP, CP, LIP ####[facility] [place] [address] Bilirubin Ql (U) 0.62 mg/dL Normal 0.3-1.2 [facility] Comment on above: Performed By: #### C DP, CP, LIP ####[facility] [facility] [place] [address] BUN/CRE Ratio 16 Normal 9-20 [facility] Comment on above: Performed By: #### C DP, CP, LIP ####[facility] [facility] [place] [address] Calcium 9.0 mg/dL Normal 8.6-10.4 [facility] Comment on above: Performed By: #### C DP, CP, LIP ####[facility] [facility] [place] [address] Chloride 107 mmol/L Normal 98-107 [facility] Comment on above: Performed By: #### C DP, CP, LIP ####[place] [address] [place] [address] CO2 23 mmol/L Normal 20-31 [facility] Comment on above: Performed By: #### C DP, CP, LIP ####[place] [address] [facility] [place] [address] Creatinine 0.61 mg/dL Normal 0.50-0.90 [facility] Comment on above: Performed By: #### C DP, CP, LIP ####[place] [address] [place] [address] eGFR (non-black) Pediatric GFR requir es additional information. Refer to NKDEP website for Normal >60 [facility] Comment on above: Result Comment: calc ulator. Performed By: #### C DP, CP, LIP ####[place] [address] [place] [address] Glucose mass conc 105 mg/dL High 70-99 [facility] Comment on above: Performed By: #### C DP, CP, LIP ####[place] [address] [place] [address] Potassium molar conc 3.5 mmol/L Low 3.7-5.3 [facility] Comment on above: Performed By: #### C DP, CP, LIP ####[facility] [facility] [place] [address] Protein 6.5 g/dL Normal 6.4-8.3 [facility] Comment on above: Performed By: #### C DP, CP, LIP ####[place] [address] [place] [address] Sodium 144 mmol/L Normal 135-144 [facility] Comment on above: Performed By: #### C DP, CP, LIP ####[facility] [facility], [place] [phone] Urea nitrogen 10 mg/dL Normal 6-20 [facility] Comment on above: Performed By: #### C DP, CP, LIP ####[facility] [facility] [place] [address] Albumin/Globulin Ratio NOT REPORTED Normal 1.0-2.5 [facility] Comment on above: Performed By: #### C DP, CP, LIP ####[facility] [facility] [place] [address] eGFR (non-black) NOT REPORTED Normal >60 [facility] Comment on above: Performed By: #### C DP, CP, LIP ####[place] [address] [facility] [place] [address]([phone]) Staging: NOT REPORTED Normal [facility] Comment on above: Performed By: #### C DP, CP, LIP ####[facility] [place] [address].[place] [phone] ED Noteon 06-21-2017 HIM IP Note OR Junior Account Manager Normal [facility] ED Provider Noteon 8 HIM IP Note OR Junior Account Manager Normal [facility] HCG, ,Urineon 06-21 HCG.beta subunit ( test) Ql (U) Negative Normal NEG [facility] Comment on above: Result Comment: Perf ormed at [facility] [address] [facility] [place] [address] [phone] Performed By: #### U HCG, UA, UMICAO ####[facility] [facility] [place] [address]([phone]) Lipaseon 06-21-2017 Lipase 22 U/L Normal 13-60 [facility] Comment on above: Result Comment: Perf ormed at [facility] [address] [facility] [place] [place] [address] [phone] Performed By: #### C DP, CP, LIP ####[facility] [place] [address] Urinalysis, Routineon 2017 Acetaminophen mass conc Negative Normal NEG [facility] Comment on above: Performed By: #### U HCG, UA, UMICAO ####[facility] [place] [address] Bilirubin (direct) Negative Normal NEG [facility] Comment on above: Performed By: #### U HCG, UA, UMICAO ####[place] [address] [facility] [place] [address] Comment Normal [facility] Comment on above: Result Comment: Perf ormed at [facility] [address] [facility] [place] [address] Performed By: #### U HCG, UA, UMICAO ####[address] [place] [address] Hemoglobin mass conc (Bld) 2+ Abnormal NEG [facility] Comment on above: Performed By: #### U HCG, UA, UMICAO ####[address] [place] [address] Nitrite,Ur Negative Normal NEG [facility] Comment on above: Performed By: #### U HCG, UA, UMICAO ####[address] [place] [address] Turbidity HAZY Abnormal CLEAR [facility] Comment on above: Performed By: #### U HCG, UA, UMICAO ####[place] [facility] [place] [address] Urine, color YELLOW Normal YEL [facility] Comment on above: Performed By: #### U HCG, UA, UMICAO ####[address] [place] [address] Urine, glucose presence Negative Normal NEG [facility] Comment on above: Performed By: #### U HCG, UA, UMICAO ####[address] [place] [address] Urine, leukocyte esterase presence 3+ Abnormal N EG [facility] Comment on above: Performed By: #### U HCG, UA, UMICAO ####[address] [place] [address] Urine, pH 5.0 [pH] Normal 5.0-8.0 [facility] Comment on above: Performed By: #### U HCG, UA, UMICAO ####[address] [place] [address] Urine, protein presence TRACE Abnormal NEG [facility] Comment on above: Performed By: #### U HCG, UA, UMICAO ####[address] [place] [address] Urine, specific gravity 1.025 Normal 1.005-1.030 [facility] Comment on above: Performed By: #### U HCG, UA, UMICAO ####[address] [address] [facility] [place] [address] Urobilinogen,Ur Normal Normal NORM [facility] Comment on above: Performed By: #### U HCG, UA, UMICAO ####[address] [address] [facility] [place] [address] Urinalysis,Microon 8 ----- Normal [facility] Comment on above: Performed By: #### U HCG, UA, UMICAO ####[address] [facility] [place] [address] Mucus Strands 2+ Abnormal NONE [facility] Comment on above: Result Comment: Perf ormed at [facility] [address] [facility] [place] [address] Performed By: #### U HCG, UA, UMICAO ####[facility] [facility] [place] [address] Urine WBC's 20 TO 50 Normal 0 [facility] Comment on above: Performed By: #### U HCG, UA, UMICAO ####[address] [address] [facility] [place] [address] Urine, bacteria in sediment 2+ Abnormal NONE [facility] Comment on above: Performed By: #### U HCG, UA, UMICAO ####[address] [address] [facility] [place] [address] Urine, crystals in sediment 1+ /HPF Abnormal NONE [facility] Comment on above: Result Comment: CALC IUM OXALATE Performed By: #### U HCG, UA, UMICAO ####[address] [place] [address] Urine, epithelial cells in sediment 2 TO 5 Normal [facility] Comment on above: Performed By: #### U HCG, UA, UMICAO ####[address] [place] [address] Urine, erythrocytes 0 TO 2 Normal 0-2 [facility] Comment on above: Performed By: #### U HCG, UA, UMICAO ####[address] [place] [address] Epithelial, Renal NOT REPORTED Normal 0 [facility] Comment on above: Performed By: #### U HCG, UA, UMICAO ####[place] [address] [facility] [place] [address] Other Observations NOT REPORTED Normal NREQ [facility] Comment on above: Performed By: #### U HCG, UA, UMICAO ####[place] [facility] [place] [address] Trichomonas NOT REPORTED Normal NONE [facility] Comment on above: Performed By: #### U HCG, UA, UMICAO ####[facility] [facility] [place] [address] Urine, amorphous sediment pr esence in sediment NOT REPORTED Normal NONE [facility] Comment on above: Performed By: #### U HCG, UA, UMICAO ####[facility] [facility] [place] [address] Urine, casts in sediment NOT REPORTED Normal [facility] Comment on above: Performed By: #### U HCG, UA, UMICAO ####[facility] [facility] [place] [address] Urine, yeast presence in sediment NOT REPORTED Normal NONE [facility] Comment on above: Performed By: #### U HCG, UA, UMICAO ####[facility] [facility] [place] [address] Vital Signs Date Time Vital Sign Value Performing Clinician Venusi palomo 09-17-2022 04:06-0400 Body weight 84.[address] DESHAWN ROES . [facility] Comment on above: Performed By: #### C T/NGNA #### [facility] [address] [place], [place] [address] Dr. Phill Og Encounters Encounter Date Encounter Type Care Provider Facility Start: 05-11-2023 Orders Only Uma grande RN [facility] Phone[facility] Start: 05-10-2023 Orders Only Uma grande RN Work Phone: [facility] Comment on above: Mass of right breast , unspecified quadrant (Primary Dx) Start: 05-02-2023 End: 05-02-2023 ambulatory DESHAWN ROSE Not Available Start: 02-09-2023 End: 02-09-2023 ambulatory Deshawn Rose Facility:[facility] Start: 02-09-2023 End: 02-09-2023 ambulatory Deshawn Rose Work Phone: [facility] Work Phone: Start: 02-09-2023 End: 02-09-2023 Departed Referred Deshawn Rose Work Phone: [facility] [place] Work Phone: Start: 09-27-2022 End: 09-28-[address] DESHAWN ROSE . Facility: Start: 09-15-2022 End: 09-16-[address] DESHAWN ROSE . Facility: Start: 08-27-[address] DESHAWN ROSE . Facili ty: Start: 08-18-2022 End: 08-18-[address] DESHAWN ROSE . Facility: Start: 06-24-2022 End: 06-25-[address] DESHAWN ROSE . Facility: Start: 06-24-2022 End: 06-25-[address] DESHAWN ROSE . Facility: Start: 06-10-2022 End: 06-11-[address] DESHAWN ROSE . Facility: Start: 04-19-2022 End: 04-19-[address] DESHAWN ROSE . Facility: Start: 02-06-2020 Patient encounter procedure Avirup Cuco NZ-Dtxwacokpm-Gxcmzhc [address] Work Phone: Start: 01-29-2020 Patient encounter procedure Avirup Cuco UR-Sgvvvqvpwx-Bzvbaox [address] Work Phone: Start: 01-21-2020 Patient encounter procedure Avirup Cuco RH-Zzixfrgmav-Acywlmb [address] Work Phone: Start: 01-18-2020 Patient encounter procedure Avirup Cuco HE-Vwfldloihd-Ooaomrc [address] Work Phone: Start: 05-09-2018 End: 05-10-2018 Patient encounter procedure Jolynn Villa Facility:[facility] Start: 05-03-2018 End: 05-03-2018 Emergency department patient visit Digna Oro Facility:[facility] Start: 03-10-2018 End: 03-10-2018 Emergency department patient visit Matilda Mahmood Facility:[facility] Start: 03-08-2018 End: 03-08-2018 Emergency department patient visit Parag Hendrickson Facility:[facility] Start: 08-01-2017 End: 08-01-2017 Emergency department patient visit NELA Chisholm [facility] Start: 06-24-2017 End: 06-25-2017 Ambulatory [facility]ELA [facility]m [facility] Start: 06-24-2017 End: 06-24-2017 [facility] Start: 06-21-2017 End: 06-21-2017 Emergency department patient visit JONNATHAN Calloway [facility] Procedures Date Procedure Procedure Detail Performing Clinician Start: 02-13-2020 Follow-up visit Start: 01-29-2020 Echocardiography Avirup Cuco Start: 01-25-2020 Holter Monitor 3-14 Days Avirup Cuco Start: 01-18-2020 Cardiac Stress Test Lauri rup Cuco Start: 01-18-2020 Echocardiography Avirup Cuco Start: 01-18-2020 Holter Monitor 3-14 Days Avirup Cuco Start: 01-18-2020 Tilt Table Avirup Guh a Start: 01-18-2020 Follow-up visit Start: 08-01-2017 WOUND DRESSING JONNATHAN TR IPPE Start: 06-24-2017 Radiologic exam abdo men 1 view JONNATHAN TRIPPE Start: 06-24-2017 H. PYLORI BREATH TEST G LENN TRIPPE Start: 06-21-[address] OOL NON CA SCREEN JONNATHAN TRIPPE Start: 06-21-2017 URINE CULTURE JONNATHAN TRI PPE Start: 06-21-2017 Microscopic urinalysis JONNATHAN TRIPPE Start: 06-21-2017 , URINE JONNATHAN TRIPPE Start: 06-21-2017 Urinalysis JONNATHAN TRIP PE Start: 06-21-2017 CBC WITH AUTO DIFFERENTIAL JONNATHAN TRIPPE Start: 06-21-2017 COMPREHENSIVE METABOLIC PANEL JONNATHAN TRIPPE Start: 06-21-2017 LIPASE JONNATHAN TRIP PE Extraction of wisdom tooth A virup Ccuo Plan of Treatment Date Care Activity Detail Author Start: 08-02-2027 Urine microalbumin profile DTaP,Tdap,Td Vaccine (8 - Td or Tdap) [facility] Start: 01-28-2023 Influenza vaccination Influenza Vaccine (#1) [facility] Start: 05-30-2022 Depression Assessment Depression Assessment [facility] Start: 2020 Screening for malignant neoplasm of cervix Pap Testing [facility] Start: 01-18-2020 [facility] Work Phone: Start: 2018 Urine microalbumin profile DTaP,Tdap,Td Vaccine (1 - Tdap) [facility] Start: 2017 Hepatitis C screening Hepatitis C Screening [facility] Start: 2017 HIV screening HIV Screening [facility] Start: 2013 Peds To Adult Transition Annual Assessment Peds To Adult Transition Annual Assessment [facility] Start: 2011 Peds To Adult Transition Initial Discussion Peds To Adult Transition Initial Discussion [facility] Start: 2008 HPV Vaccine (1 - 2-dose series) HPV Vaccine (1 - 2-dose series) [facility] Start: 1999 Covid-19 Vaccine (#1) Covid-19 Vaccine (#1) [facility] Start: 1999 Hepatitis B Vaccine (1 of 3 - 3-dose series) Hepatitis B Vaccine (1 of 3 - 3-dose series) [facility] End: 06-08-2024 US BREAST LTD RIGHT US BREAST LTD RIGHT Radiology Routine Mass of right breast, unspecified quadrant 1 Occurrences starting 05/10/2023 until 06/08/2024 [facility] Work Phone: Comment on above: 1 Occurrences starti ng 05/10/2023 until 06/08/2024 [facility] Work Phone: [facility] NEGATED: Highlighted row has been ruled out! Planned Goals not documented [facility]: Immunizations Immunization Date Immunization Notes Care Provider Tyson mccain 08-01-2017 tetanus toxoid, redu lissa diphtheria toxoid, and acellular pertussis vaccine, adsorbed Uma Brown RN Work Phone: [facility] Work Phone: 01-25-2012 meningococcal polysaccharide (groups A, C, Y and W-135) diphtheria toxoid conjugate vaccine (MCV4P) Uma Brown RN Work Phone: [facility] Work Phone: 01-25-2012 tetanus toxoid, redu lissa diphtheria toxoid, and acellular pertussis vaccine, adsorbed Uma Brown RN Work Phone: [facility] Work Phone: 01-25-2012 varicella virus vaccine Lilli Brown RN Work Phone: [facility] Work Phone: 01-20-2005 diphtheria, tetanus toxoids and acellular pertussis vaccine Uma Brown RN Work Phone: [facility] Work Phone: 01-20-2005 measles, mumps and rubella virus vaccine Uma Brown RN Work Phone: [facility] Work Phone: 01-20-2005 poliovirus vaccine, inactivated Uma Brown RN Work Phone: [facility] Work Phone: 03-01-2001 pneumococcal conjuga te vaccine, 7 valent Uma Brown RN Work Phone: [facility] Work Phone: 08-24-2000 diphtheria, tetanus toxoids and acellular pertussis vaccine Uma Brown RN Work Phone: [facility] Work Phone: 08-24-2000 haemophilus influenz ae type b vaccine, PRP-OMP conjugate Uma Brown RN Work Phone: [facility] Work Phone: 08-24-2000 measles, mumps and rubella virus vaccine Uma Brown RN Work Phone: [facility] Work Phone: 08-24-2000 pneumococcal conjuga te vaccine, 7 valent Uma Brown RN Work Phone: [facility] Work Phone: 08-24-2000 poliovirus vaccine, inactivated Uma Brown RN Work Phone: [facility] Work Phone: 08-24-2000 varicella virus vaccine Lilli Brown RN Work Phone: [facility] Work Phone: 1999 hepatitis B vaccine, adult dosage Uma Brown RN Work Phone: [facility] Work Phone: 1999 diphtheria, tetanus toxoids and acellular pertussis vaccine Uma Brown RN Work Phone: [facility] Work Phone: 1999 haemophilus influenz ae type b vaccine, PRP-OMP conjugate Uma Brown RN Work Phone: [facility] Work Phone: 1999 diphtheria, tetanus toxoids and acellular pertussis vaccine Uma Brown RN Work Phone: [facility] Work Phone: 1999 haemophilus influenz ae type b vaccine, PRP-OMP conjugate Uma Brown RN Work Phone: [facility] Work Phone: 1999 hepatitis B vaccine, adult dosage Uma Brown RN Work Phone: [facility] Work Phone: 1999 trivalent poliovirus vaccine, live, oral Uma Brown RN Work Phone: [facility] Work Phone: 1999 diphtheria, tetanus toxoids and acellular pertussis vaccine Uma Brown RN Work Phone: [facility] Work Phone: 1999 haemophilus influenz ae type b vaccine, PRP-OMP conjugate Uma Brown RN Work Phone: [facility] Work Phone: 1999 hepatitis B vaccine, adult dosage Uma Brown RN Work Phone: [facility] Work Phone: 1999 trivalent poliovirus vaccine, live, oral Uma Brown RN Work Phone: [facility] Work Phone: Payers Date Payer Category Payer Unknown [id number] 2017 Unknown [id number] 2014 Unknown 1999 Unknown [id number] 2.16.84 [id number] 1999 Unknown [id number] 2.16.84 [id number] 1999 Unknown [id number] 2.16.84 [id number] 1999 Unknown [id number] 2.16.84 [id number] 1999 Unknown [id number] 2.16.84 [id number] 1999 Unknown [id number] 2.16.84 [id number] 1999 Unknown [id number] 2.16.84 [id number] 1999 Unknown [id number] 2.16.84 [id number] 1999 Unknown [id number] 2.16.84 [id number] 1999 Unknown [id number] 2.16.84 [id number] 1999 Unknown [id number] 2.16.84 [id number] 1999 Unknown [id number] 2.16.84 [id number] 1999 Unknown [id number] 2.16.840 .[id number] 1959 Self-pay 1959 Unknown [id number] 1959 Unknown [id number] Unknown [id number] 2.16.8 [id number] Social History Date Type Detail Facility Start: 1999 Sex Assigned At Female [facility] Start: 05-13-2014 Tobacco smoking status NHIS Never smoked tobacco [facility] Start: 05-13-2014 Alcohol intake Current non-dr agile tester of alcohol (finding) [facility] Start: 05-26-2015 History of Social function [facility] Start: 05-26-2015 Tobacco use panel [facility] Start: 1999 Sex Assigned At Not on file [facility] NEGATED: Highlighted row - - [facility] Work Phone: Functional Status Date Assessment Result Facility NEGATED: Highlighted row Functional performance Functional status health issues are not documented Disease [facility] Work Phone: Mental Status Date Assessment Result Facility NEGATED: Highlighted row Cognitive function [Interpretation] Cognitive status health issues are not documented Disease [facility] Work Phone: Evaluation note Note Date & Type Note Facility Evaluation note No assessment information availa [facility] Work Phone: Evaluation note Note Date & Type Note Facility Evaluation note Diagnosis Mass of right breast, unspecified quadrant- Primary documented in this encounter [facility] Reason for referral (narrative) Diagnostic Procedure Only (Routine) - Authorized Note Date & Type Note Facility Reason for referral (narrati ve) Specialty Diagnoses / Procedures Referred By Contac t Referred To Contact [facility] Diagnoses Mass of right breast, unspecified quadrant Procedures US BREAST LTD RIGHT US BREAST UNI REAL TIME WITH IMAGE LIMITED Narda Faria MD [facility] [place] [address] [facility] [address] [place] [id number] Referral ID Status Reason Start Date Expiration Date Visits Requested Visits Authorized [id number] Authorized Auto-Generat ed Referral 3 05/29/2023 1 1 [facility] Summary Purpose Family History Grandmother Name Dates Details Family history of hypertensi on(V17.49, Z82.49) Status:Active Grandfather Name Dates Details Family history of hypertensi on(V17.49, Z82.49) Status:Active aunt Name Dates Details Family history of hypotensio n(V17.49, Z82.49) Status:Active Family history of hypertensi on(V17.49, Z82.49) Status:Active uncle Name Dates Details Family history of hypertensi on(V17.49, Z82.49) Status:Active Mother Name Dates Details Family history of hypertensi on(V17.49, Z82.49) Status:Active Father Name Dates Details Family history of hypertensi on(V17.49, Z82.49) Status:Active Family history of Prediabete s(790.29, R73.03) Status:Active Grandmother Name Dates Details Family history of hypertensi on(V17.49, Z82.49) Status:Active Grandfather Name Dates Details Family history of hypertensi on(V17.49, Z82.49) Status:Active aunt Name Dates Details Family history of hypotensio n(V17.49, Z82.49) Status:Active Family history of hypertensi on(V17.49, Z82.49) Status:Active uncle Name Dates Details Family history of hypertensi on(V17.49, Z82.49) Status:Active Mother Name Dates Details Family history of hypertensi on(V17.49, Z82.49) Status:Active Father Name Dates Details Family history of hypertensi on(V17.49, Z82.49) Status:Active Family history of Prediabete s(790.29, R73.03) Status:Active Grandmother Name Dates Details Family history of hypertensi on(V17.49, Z82.49) Status:Active Grandfather Name Dates Details Family history of hypertensi on(V17.49, Z82.49) Status:Active aunt Name Dates Details Family history of hypotensio n(V17.49, Z82.49) Status:Active Family history of hypertensi on(V17.49, Z82.49) Status:Active uncle Name Dates Details Family history of hypertensi on(V17.49, Z82.49) Status:Active Mother Name Dates Details Family history of hypertensi on(V17.49, Z82.49) Status:Active Father Name Dates Details Family history of hypertensi on(V17.49, Z82.49) Status:Active Family history of Prediabete s(790.29, R73.03) Status:Active Advance Directives No Advanced Directives Records FoundNo Advanced Directives Records FoundNo Advanced Directives Records FoundNo Advanced Directives Records FoundNo Advanced Directives Records FoundNo Advanced Directives Records FoundNo Advanced Directives Records FoundNo Advanced Directives Records FoundNo Advanced Directives Records Found Additional Source Comments INFORMATION SOURCE (unrecogn ized section and content) DATE CREATED AUTHOR 11/18/2017 [facility] DATE CREATED AUTHOR AUTHOR'S ORGANIZ ATION 10/07/2018 [facility] DATE CREATED AUTHOR AUTHOR'S ORGANIZ ATION 07/20/2019 [employer] DATE CREATED AUTHOR AUTHOR'S ORGANIZ ATION 02/14/2020 [employer] DATE CREATED AUTHOR AUTHOR'S ORGANIZ ATION 03/21/2020 [facility] DATE CREATED AUTHOR AUTHOR'S ORGANIZ ATION 04/29/2021 [facility] DATE CREATED AUTHOR AUTHOR'S ORGANIZ ATION 10/01/2022 [facility] DATE CREATED AUTHOR AUTHOR'S ORGANIZ ATION 04/17/[address] 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 Relationship Specialty Start Date End Date Jonnathan Pelayo [address] [place] [address] PCP - General Pediatrics 04/01/14 Deshawn Rose DO [address] [place] [address] [place] [address] Referring RIG WELDER 05/07/23 Geothermal Electrical Engineer Relationship Specialty Start Date End Date Jonnathan Pelayo [address] [place] [address] PCP - General Pediatrics 04/01/14 Deshawn Rose DO [address] [place] [address] [place] [address] Referring RIG WELDER 05/07/23 Goals (unrecognized section and content) Goals may be documented in a n alternate section Source Comments (unrecognize d section and content) In the event this informatio n is protected by the Federal Confidentiality of Alcohol and Drug Abuse Patient Records regulations: The Federal rules restrict any use of the information to criminally investigate or prosecute any alcohol or drug abuse patient.[facility] the event this information is protected by the Federal Confidentiality of Alcohol and Drug Abuse Patient Records regulations: The Federal rules restrict any use of the information to criminally investigate or prosecute any alcohol or drug abuse patient.[facility] FOR RECORDS PERTAINING TO PATIENTS WHO ARE OR HAVE BEEN ENROLLED IN A CHEMICAL DEPENDENCY/SUBSTANCEABUSE PROGRAM, SOME INFORMATION MAY BE OMITTED. This clinical summary was aggregated from multiple sources. Caution should be exercised in using it in the provision of clinical care. This summary normalizes information from multiple sources, and as a consequence, information in this document may materially change the coding, format and clinical context of patient data. In addition, data may be omitted in some cases. CLINICAL DECISIONS SHOULD BE BASED ON THE PRIMARY CLINICAL RECORDS. [facility]. provides no warranty or guarantee of the accuracy or completeness of information in this document.
== END 2023-04-11 12:00 | disposition home or self-care (01) ==
LOC: US 10:28
PROVIDERS: Radiology Diagnostic Radiology; Visit Provider Obstetrics & Gynecology
DX: D24.1 Benign neoplasm of right breast (principal)
CPT/HCPCS: 19083; 88305; 88341; 88342

== ENCOUNTER 2023-05-02 21:37 | Outpatient (REF) | payer BC, SELFPAY ==
[2023-05-05 15:10] LABS: Age Gdln ACOG Testing Note (.); IGP, rfx Aptima HPV ASCU Note (.)
== END 2023-05-02 21:38 | disposition home or self-care (01) ==
LOC: LAB 21:37
PROVIDERS: Visit Provider Obstetrics & Gynecology
DX: Z01.419 Encounter for gynecological examination (general) (routine) without abnormal findings (principal)
CPT/HCPCS: G0145

== ENCOUNTER 2024-02-08 15:02 | Outpatient (OUT) | payer BC, SELFPAY ==
[2024-02-08 15:32] LABS: Basophils Absolute Auto 0.1 10^3/uL (0.0-0.1); Basophils Percent Auto 0.5 % (0.2-2.0); Eosinophils Absolute Auto 0.1 10^3/uL (0.0-0.7); Eosinophils Percent Auto 1.2 % (0.9-7.0); Hematocrit 38.2 % (36.0-48.0); Hemoglobin 12.7 g/dL (12.0-16.0); Immature Granulocytes Abs Auto 0.02 10^3/uL (0.00-0.03); Immature Granulocytes Pct Auto 0.2 % (0.0-0.5); Lymphocytes Absolute Auto 2.8 10^3/uL (1.2-3.8); Lymphocytes Percent Auto 27.3 % (20.5-60.0); Mean Corpuscular HGB Conc 33.2 g/dL (29.9-35.2); Mean Corpuscular Hemoglobin 28.2 pg (26.7-34.0); Mean Corpuscular Volume 84.9 fL (81.0-99.0); Mean Platelet Volume 10.3 fL (9.5-13.5); Monocytes Absolute Auto 0.8 10^3/uL (0.3-0.8); Monocytes Percent Auto 8.2 % (1.7-12.0); Neutrophils Absolute Auto 6.4 10^3/uL (1.4-6.5); Neutrophils Percent Auto 62.6 % (43.0-75.0); Platelet Count 264 10^3/uL (150-450); Red Cell Distribution Width 13.1 % (11.0-15.0); White Blood Count 10.2 10^3/uL (4.0-11.0)
[2024-02-08 15:49] LABS: Estimated Average Glucose 103 mg/dL; Glycohemoglobin A1C 5.2 % (4.5-6.2)
[2024-02-08 16:25] LABS: Thyroid Stimulating Hormone 1.103 uIU/mL (0.358-3.740)
[2024-02-08 16:31] LABS: HCG Quantitative <1 mIU/mL
[2024-02-08 16:41] LABS: Free T4 0.96 ng/dL (0.76-1.46)
[2024-02-09 04:12] LABS: FSH 1.9 mIU/mL (.); Luteinizing Hormone(LH) 7.2 mIU/mL (.)
== END 2024-02-08 15:03 | disposition home or self-care (01) ==
LOC: LAB 15:04
PROVIDERS: Visit Provider Obstetrics & Gynecology
DX: N64.52 Nipple discharge (principal); E28.2 Polycystic ovarian syndrome; R63.5 Abnormal weight gain
CPT/HCPCS: 36415; 82626; 82627; 83001; 83002; 83036; 84439; 84443; 84702; 85025; 87070; 87075

== ENCOUNTER 2024-02-08 20:04 | Outpatient (REF) | payer BC, SELFPAY ==
--- OUTSIDE RECORDS SUMMARY | 2024-02-08 20:11 | XMS_ITS | CCD ---
Author Organization [facility] Care Team Providers Care It Systems Manager Name Role Phone JONNATHAN PELAYO J Unavailable Unavailable CARLIE ARIAS Unavailable Unavailable CLINGMAN, NELA A Unavailable Unavailable CLINGMAN, NELA A Unavailable Unavailable CLINGMAN, NELA A Unavailable Unavailable CLINGMAN, NELA A Unavailable Unavailable CLINGMAN, NELA A Unavailable Unavailable CLINGMAN, NELA A Unavailable Unavailable CLINGMAN, NELA A Unavailable Unavailable JUDD WASHINGTON Unavailable Unavaila ble Hajdari, Astrit H Admitting Unavailable Hajdari, Astrit H Attending Unavailable Carlie Talley~[phone] UNKNOWN Primary Ca re Unavailable Timoteo, Cookie Admitting Unavailable Timoteo, Cookie Attending Unavailable Carlie Talley~[phone] UNKNOWN Primary Ca re Unavailable Oro, Digna F Admitting Unavailable Oro, Digna F Attending Unavailable Orgas, Jolynn Primary Care Unavailable Jolynn Villa Primary Care Unavailable CHRIS BUSTOS MD Admitting [...] Unavailable MISC, DR OLMEDO Primary Care Unavailable ZiKev schmitz Consulting Unavailable ROSE ., DR SURESH Admitting Unavailable ROSE ., DR SURESH Attending Unavailable MISC, DR OLMEDO Primary Care Unavailable ROSE ., DR SURESH Consulting Unavailable ROSE ., DR USRESH Admitting Unavailable ROSE ., DR SURESH Attending Unavailable ROSE ., DR SURESH Consulting Unavailable MISC, DR OLMEDO Primary Care Unavailable ZiebKev banuelos Consulting Unavailable REQUEST, DR SCHNEIDER LISTED Consulting Unavaila ble ROSE ., DR SURESH Admitting Unavailable ROSE ., DR SURESH Attending Unavailable MISC, DR OLMEDO Primary Care Unavailable ROSE ., DR SURESH Admitting Unavailable ROSE ., DR SRUESH Attending Unavailable MISC, DR OLMEDO Primary Care Unavailable ROSE ., DR SURESH Consulting Unavailable Rose, Deshawn Attending Provider Shelby Rosey Admitting Unavailable Rose, Deshawn Attending Unavailable ROSE, DESHAWN Attending Unavailable Trippe, Jonnathan J Primary Care Provider Rose DO Deshawn R Unavailable Trippe, Jonnathan J Primary Care Provider Generic Provider MD, No Assigned Pcp Primary Car e Provider Unavailable SHAUNA PATEL Attending Unavailable GENERIC PROVIDER, NO ASSIGNED PCP Primary Care Unavailable TETE MULTANI Referring Unavailabl e CHICHURA, TETE MURRY Referring Unavailabl e CHICHURA, TETE MURRY Attending Unavailabl e TRIPPE, JONNATHAN J Primary Care Unavailable CHICHURA, TETE MURRY Attending Unavailabl e FARIA, NARDA Referring Unavailable TRIPPE, JONNATHAN J Primary Care Unavailable FARIA, NARDA Referring Unavailable TRIPPE, JONNATHAN J Primary Care Unavailable FARIA, NARDA Attending Unavailable TRIPPE, JONNATHAN J Primary Care Unavailable YOLANDA ANGELA Referring Unavailable TRIPPE, JONNATHAN J Primary Care Unavailable FARIA, NARDA Attending Unavailable TRIPPE, JONNATHAN J Primary Care Unavailable FARIA, NARDA Referring Unavailable TRIPPE, JONNATHAN J Primary Care Unavailable FARIAKATERINAA Attending Unavailable TRIPPE, JONNATHAN J Primary Care Unavailable TRIPPE, JONNATHAN J Primary Care Unavailable NARDA FARIA Attending Unavailable JONNATHAN PELAYO Primary Care Unavailable NARDA FARIA Referring Unavailable JONNATHAN PELAYO Primary Care Unavailable NORMA NICHOLAS Attending Unavailable JOSE NELSON Referring Unavailable Allergies Allergy Classification Reported Allergen(s) Allergy Type Date of Onset Reaction(s) Facility beeswax (1 source) beeswax Drug Allergy 9 Other: See Comments [facility] (2 sources) bee venom Drug allergy (disorder) [facility] Repository (19 sources) beeswax; Translations: [BEESWAX] Drug Allergy 9 Other: See Comments [facility] Work Phone: (19 sources) Bees; Translations: [BEES] Allergy to substance 3 Swelling [facility] Work Phone: (19 sources) Venom-Honey Bee; Translations: [VENOM-HONEY BEE] Drug Allergy 3 Swelling [facility] Work Phone: (7 sources) Vancomycin; Translations: [VANCOMYCIN] Drug Allergy 4 [facility] 2 Repository Medications Current Medications Medication Drug Class(es) Dates Sig (Normalized) Sig (Original) acetaminophen 500 mg oral tablet (4 sources) Start: 12-22-2023 take 2 tablets by mouth every six hours as needed acetaminophen (TYLENOL EXTRA STRENGTH) 500 mg tablet Take 2 tablets by mouth every 6 hours as needed for pain. 60 tablet 12/22/2023 Active acetaminophen 325 mg / oxyCODONE hydrochloride 5 mg oral tablet (1 source) Opioid Agonist Start: 11-03-2023 take 1 tablet by mouth every six hours as needed 1 tablet, oral, Every 6 hours PRN, pain severe (7-10), first line, Dispense 4. Take every 6 hours as needed., Starting on Mireya 11/03/23 at 2319, If ordered PRN for pain, nurse is permitted to administer this medication for higher pain scores based on patient preference? Yes buPROPion hydrochloride 75 mg oral tablet (18 sources) Aminoketone Start: 02-28-2023 take 2 tablets by mouth in the morning buPROPion (WELLBUTRIN) 75 mg tablet TAKE 2 TABLETS (150 MG) BY MOUTH IN THE MORNING. 02/28/2023 Active Comment on above: TAKE 2 TABLETS (150 MG) BY MOUTH IN THE MORNING. cephalexin 500 mg oral capsule (5 sources) Cephalosporin Antibacterial Start: 11-02-2023 End: 11-07-2023 take 1 capsule by mouth four times daily cephALEXin (KEFLEX) 500 mg capsule Take 1 capsule by mouth four times daily for 5 days. 20 capsule 0 11/02/2023 11/07/2023 Active citalopram 20 mg oral tablet (18 sources) Serotonin Reuptake Inhibitor Start: 04-18-2023 take 1 tablet by mouth once daily in the morning citalopram (CELEXA) 20 mg tablet Take 20 mg by mouth every morning. 04/18/2023 Active Comment on above: Take 20 mg by mouth every morning. gabapentin 100 mg oral capsule (4 sources) Anti-epileptic Agent Start: 12-22-2023 End: 12-27-2023 take 1 capsule by mouth every twenty-four hours as needed gabapentin (NEURONTIN) 100 mg capsule Take 1 capsule by mouth at bedtime as needed (postoperative pain) for up to 5 days. 5 capsule 12/22/2023 Active ibuprofen 600 mg oral tablet (8 sources) Nonsteroidal Anti-inflammatory Drug Start: 12-22-2023 take 1 tablet by mouth every six hours as needed ibuprofen (MOTRIN) 600 mg tablet Take 1 tablet by mouth every 6 hours as needed for pain. 60 tablet 12/22/2023 Active Start: 11-03-2023 End: 11-03-2023 take 800 mg by mouth once at mealtime as needed for pain 800 mg, oral, Once, On Mireya 11/03/23 at 2140, For 1 dose, May administer with food to reduce GI upset., If ordered PRN for pain, nurse is permitted to administer this medication for higher pain scores based on patient preference? Yes Start: 02-10-2023 ibuprofen (MOT RIN) 800 mg tablet Take 800 mg by mouth. 0 02/10/2023 Active take 3 tablets by mo uth every eight hours as needed ibuprofen (MOTRIN IB) 200 mg tablet Take 600 mg by mouth every 8 hours as needed. 0 Active Comment on above: Take 600 mg by mouth every 8 hours as needed. Take 800 mg by mouth . norethindrone 0.35 mg oral tablet (18 sources) Start: 03-21-2023 take 1 tablet by mouth in the morning Norethindrone, Contraceptive, 0.35 mg tablet TAKE 1 TABLET (0.35 MG) BY MOUTH IN THE MORNING 03/21/2023 Active Comment on above: TAKE 1 TABLET (0.35 MG) BY MOUTH IN THE MORNING Completed/Discontinued Medications Medication Drug Class(es) Dates Sig (Normalized) Sig (Original) bacitracin zinc 0.5 unt/mg topical ointment (1 source) Start: 11-03-2023 End: 11-03-2023 1 Application, Topical, Once, On Mireya 11/03/23 at 2105, For 1 dose, Apply to: right breast cholecalciferol 0.05 mg oral tablet (16 sources) Vitamin D Start: 05-17-2023 End: 12-29-2023 take 1 tablet by mouth once daily cholecalciferol (VITAMIN D-3) 50 mcg (2,000 unit) tablet Take 1 tablet by mouth once daily. 0 05/17/2023 12/29/2023 Discontinued (Discontinued by Patient) Comment on above: Take 1 tablet by [facility] once daily. diphenhydrAMINE (2 sources) Histamine-1 Receptor Antagonist Start: 11-03-2023 End: 11-03-2023 Starting on Mireya 11/03/23 at 2233, For 1 dose, Created by cabinet override Start: 11-03-2023 End: 11-03-2023 25 mg, intravenous, Once, On Mireya 11/03/23 at 2230, For 1 dose, If giving IV push, max rate of 25 mg/min. Setlakin 0.15-0.03 MG Oral Tablet (3 sources) Progestin, Estrogen, Progestin-containing Intrauterine Device take 1 tablet by mouth once daily Setlakin 0.15-0.03 MG Oral Tablet TAKE 1 TABLET DAILY. Refills: 0 DO Active 91 Tablet Pack take 1 tablet by mouth once alta y Setlakin 0.15-0.03 MG Oral Tablet TAKE 1 TABLET DAILY. Refills: 0 Active 91 Tablet Pack 10 ml lidocaine hydrochloride 10 mg/ml injection (1 source) Antiarrhythmic, Amide Local Anesthetic Start: 10-11-2023 End: 10-11-2023 lidocaine (PF) 10 mg/mL (1 %) injection (XYLOCAINE) 24 hr metoprolol succinate 25 mg extended release oral tablet (3 sources) beta-Adrenergic Andrea take 1 tablet by mouth once daily Metoprolol Succinate ER 25 MG Oral Tablet Extended Release 24 Hour TAKE 1 TABLET DAILY. Quantity: 90 Refills: 3 Active piperacillin 3000 mg / tazobactam 375 mg injection (1 source) Penicillin-class Antibacterial, beta Lactamase Inhibitor Start: 11-03-2023 End: 11-03-2023 3.375 g, intravenous, at 100 mL/hr, Administer over 0.5 Hours, Once, On Mireya 11/03/23 at 2130, For 1 dose, premix bag, Dosing of this medication varies based on severity of illness. Does this patient have sepsis or concern for sepsis (probable or documented infection plus systemic manifestations of infection)? No, Suspected Indication (Select all that apply): Cellulitis, Skin and Soft Tissue, Indications: Cellulitis, Skin and Soft Tissue Vndojbpj-Og-Qoq-Fe- FA tab (16 sources) Start: 05-17-2023 End: 12-29-2023 take 1 tablet by mouth once daily Rvvsuuzw-Se-Dvp-Fe- FA tab Take 1 tablet by mouth once daily. 0 05/17/2023 12/29/2023 Discontinued (Course of therapy completed) Start: 05-17-2023 take 1 tablet by yasir th once daily Fnoiiwla-Jo-Gew-Fe-FA tab Take 1 tablet by mouth once daily. 0 05/17/2023 Active Comment on above: Take 1 tablet by yasir th once daily. sulfamethoxazole 800 mg / trimethoprim 160 mg oral tablet (3 sources) Dihydrofolate Reductase Inhibitor Antibacterial, Sulfonamide Antimicrobial Sulfamethoxazole-TMP DS 800-160 MG TABS TAKE 1 TABLET TWICE DAILY UNTIL FINISHED. Refills: 0 Active 200 ml vancomycin 5 mg/ml injection (1 source) Glycopeptide Antibacterial Start: 11-03-2023 End: 11-03-2023 1,000 mg, intravenous, at 200 mL/hr, Administer over 60 Minutes, Once, On Mireya 11/03/23 at 2115, For 1 dose, premix bag, Dosing of this medication varies based on severity of illness. Does this patient have sepsis or concern for sepsis (probable or documented infection plus systemic manifestations of infection)? No, Suspected Indication (Select all that apply): Cellulitis, Skin and Soft Tissue, Indications: Cellulitis, Skin and Soft Tissue Problems Active Problems Problem Classification Problem Date Documented Da te Episodic/Chronic Anxiety disorders (18 sources) Anxiety disorder; Translations: [Anxiety disorder, unspecified] Onset: 05-17-2023 05-17-2023 Chronic Asthma (20 sources) Asthma; Translations: [Unspecified asthma, uncomplicated] Onset: 05-17-2023 05-17-2023 Chronic Cardiac dysrhythmias (3 sources) Sinus tachycardia; Translations: [Sinus tachycardia] Chronic Menstrual disorders (20 sources) Irregular menstruation, unspecified; Translations: [Irregular periods] Onset: 06-24-2022 Chronic Nonmalignant breast conditions (20 sources) Lump in right breast; Translations: [Unspecified lump in the right breast, unspecified quadrant] Onset: 03-23-2023 05-10-2023 Episodic Other acquired deformities (17 sources) Acquired scoliosis; Translations: [Scoliosis, unspecified] Onset: 05-17-2023 05-17-2023 Chronic Other complications of ; puerperium affecting management of mother (1 source) Lactating adenoma of breast; Translations: [Other disorders of ] 09-13-2023 Episodic Other female genital disorders (1 source) Other specified noninflammatory disorders of vagina; Translations: [OTH SPEC NONINFLAMMATORY D/O VAGINA] Onset: 08-21-2022 Episodic Other gastrointestinal disorders (17 sources) Irritable bowel syndrome; Translations: [Irritable bowel syndrome without diarrhea] Onset: 05-17-2023 05-17-2023 Chronic Other nutritional; endocrine; and metabolic disorders (6 sources) Obese class I; Translations: [Obesity, unspecified] Onset: 12-22-2023 12-22-2023 Chronic Other screening for suspected conditions (not mental [...] not applicable or unspecified] Onset: 02-09-2023 Episodic Residual codes; unclassified (3 sources) History of syncope; Translations: [Personal history of other specified conditions] Onset: 12-29-2023 12-29-2023 Episodic Past or Other Problems Problem Classification Problem Date Documented Da te Episodic/Chronic Abdominal pain (4 sources) Unspecified abdominal pain; Translations: [Periumbilical pain] Onset: 06-21-2017 Episodic Acute posthemorrhagic anemia (17 sources) Acute posthemorrhagic anemia; Translations: [Acute posthemorrhagic anemia] Onset: 02-08-2023 Resolved: 12-29-2023 05-17-2023 Episodic Cardiac dysrhythmias (17 sources) Sinus tachycardia; Translations: [Tachycardia, unspecified] Onset: 05-17-2023 05-17-2023 Episodic Gastrointestinal hemorrhage (1 source) Hematemesis; Translations: [Hematemesis] Onset: 06-21-2017 Episodic Immunizations and screening for infectious disease (20 sources) Encounter for immunization; Translations: [Contact with and (suspected) exposure to infections with a predominantly sexual mode of transmission] Onset: 08-01-2017 Episodic Open wounds of extremities (1 source) Laceration without foreign body of left upper arm, initial encounter; Translations: [Laceration without foreign body of left upper arm, initial encounter] Onset: 08-01-2017 Episodic Other and unspecified benign neoplasm (1 source) Benign neoplasm of unspecified breast; Translations: [Lactating adenoma of breast] Onset: 09-13-2023 Episodic Other complications of ; puerperium affecting management of mother (1 source) Other disorders of ; Translations: [Lactating adenoma of breast] Onset: 09-13-2023 Episodic Other complications of (17 sources) Finding related to ; Translations: [Other specified related conditions, third trimester] Onset: 02-08-2023 05-17-2023 Episodic Other female genital disorders (17 sources) Noninflammatory disorder of the vagina; Translations: [Other specified noninflammatory disorders of vagina] Onset: 08-21-2022 05-17-2023 Episodic Other and delivery including normal (20 sources) Encounter for supervision of normal , unspecified, second trimester; Translations: [Encounter for supervision of normal , unspecified, first trimester] Onset: 06-25-2022 Episodic Spondylosis; intervertebral disc disorders; other back problems (19 sources) Backache; Translations: [Dorsalgia, unspecified] Onset: 05-13-2014 05-13-2014 Episodic Syncope (20 sources) Syncope and collapse; Translations: [Syncope and collapse] Onset: 05-17-2023 05-17-2023 Episodic Urinary tract infections (4 sources) Acute cystitis with hematuria; Translations: [Acute pyelonephritis] Onset: 06-21-2017 Episodic NEGATED: Highlighted row has not occurred!Residual codes; unclassified (8 sources) Disease Episodic Results Test Name Value Interpretation Reference Range Facility CNOVon 01-16-2024 CNOV Office Visit ([facility] ) YAEL AYERS ([id number]) 2000 F Date Time Provider Department 01/16/24 9:30 AM NORMA NICHOLAS JAVAN During your visit today, we recorded the following information about you: Weight Height 82.1 kg 1.626 m Norma Nicholas PA-C 01/16/2024 10:46 AM Signed BREAST SURGERY POST OPERATIVE FOLLOW-UP #1 SERVICE DATE: 01/16/2024 SUBJECTIVE: Yael Ayers 23 year old female with a history of a -associated right breast mass and infection presents today status post right breast excisional biopsy on 01/09/24. Final path showed findings consistent with lactating adenoma. She denies any signs of infection or incisional concerns. She is not taking anything for pain. She does report intermittent sharp LLQ abdominal pain since surgery and feels slightly warmer than usual. She is eating and drinking normally. She denies any fever, chills nausea, vomiting, diarrhea and reports normal bowel movements since surgery. SURGICAL PATHOLOGY: FINAL DIAGNOSIS A. Breast, right, at 6:00, #1, excisional biopsy: ---Benign breast parenchyma including prominent nodular adenosis with superimposed secretory/lactational change ( lactating adenoma ). B. Breast, right, at 3:00, #2, excisional biopsy: ---Benign breast parenchyma including adenosis with superimposed secretory/lactational change. EW OF SYSTEMS: Review Of Systems GENERAL:No weight loss, malaise or fevers HEENT:Negative for frequent or significant headaches, No changes in hearing or vision, no nose bleeds or other nasal problems NECK:Negative for lumps, goiter, pain and significant neck swelling GASTROINTESTINAL: No nausea, vomiting, or diarrhea NEUROLOGIC:Negative for focal numbness or weakness, headaches and dizziness or syncope. SKIN:Negative for lesions, rash, and itching The remainder of the ROS was negative. OBJECTIVE: PHYSICAL EXAM: Ht 162.6 cm (5' 4 ) Wt 82.1 kg (181 lb) LMP 01/04/2024 (Exact Date) BMI 31.07 kg/m? Body mass index is 31.07 kg/m?. Physical Exam Chest: Comments: Skin glue overlying well-healing periareolar right breast incision without surrounding erythema or drainage. Abdominal: General: There is no distension. Palpations: Abdomen is soft. There is no mass. Tenderness: There is abdominal tenderness (mild with deep palpation only) in the left lower quadrant. Assessment ASSESSMENT: (N63.13) Mass of lower outer quadrant of right breast (primary encounter diagnosis) Yael Ayers 23 year old female with a history of a -associated right breast mass and infection presents today status post right breast excisional biopsy on 01/09/24. Final path showed findings consistent with lactating adenoma. She is doing well post operatively. PLAN: Reviewed benign pathology findings and provided report Avoid lifting/pushing/alpa g > 10 lbs for 2 weeks, submerging in water for 4 weeks Advised to reach out via MyChart or call if abdominal pain persists/worsens Follow up in 3 months in person or virtual or sooner if needed All questions were answered; patient has no further concerns. Norma Nicholas PA-C Referring Provider: JOSE NELSON [[id number]] Allergies As of Date: 01/16/2024 Noted Allergy Reaction VENOM-HONEY BEE 05/17/2023 7 - Swelling BEES 04/11/2023 7 - Swelling BEESWAX 11/10/2018 14 - Other: See Comments VANCOMYCIN 11/07/2023 4 - Hives Date Reviewed: 01/16/2024 Reviewed by: Sharmin Hodges MA - Fully Assessed Reason for Visit: Post Op [174] Primary Visit Diagnosis:Mass of lower outer quadrant of right breast [N63.13] Prescriptions as of 01/16/2024 - acetaminophen (TYLENOL EXTRA STRENGTH) 500 mg tablet Take 2 tablets by mouth every 6 hours as needed for pain. - ibuprofen (MOTRIN) 600 mg tablet Take 1 tablet by mouth every 6 hours as needed for pain. - gabapentin (NEURONTIN) 100 mg capsule Take 1 capsule by mouth at bedtime as needed (postoperative pain) for up to 5 days. - Norethindrone, Contraceptive, 0.35 mg tablet TAKE 1 TABLET (0.35 MG) BY MOUTH IN THE MORNING - citalopram (CELEXA) 20 mg tablet Take 20 mg by mouth every morning. - buPROPion (WELLBUTRIN) 75 mg tablet TAKE 2 TABLETS (150 MG) BY MOUTH IN THE MORNING. Meds Comments as of 05/13/2014: BCP implant Problem List As Of Date 01/16/2024 Noted Resolved Back pain [M54.9] 05/13/2014 Anxiety disorder [F41.9] 05/17/2023 Diagnosed: 05/17/2023 Encounter for screening for human papillomaviru*04/21/20 Diagnosed: 05/17/2023 [Z34.90] 06/25/2022 Diagnosed: 05/17/2023 Irregular menstruation, unspecified [N92.6] 06/24/2022 Diagnosed: 05/17/2023 Other specified noninflammatory disorders of va*08/21/2022 Diagnosed: 05/17/2023 Other specified related conditions, t* (more content not included)... Normal [facility] ANES POSTPROC EVALon 024 ANES POSTPROC EVAL HNO ID: [id number] Author: VASU BARRY MD Service: Anesthesiology Author Type: Anesthesiologist Type: Anesthesia Postprocedure Evaluation Filed: 01/09/2024 16:11 Note Text: POST ANESTHESIA EVALUATION NOTE : 2000 Procedure Summary Date: 01/09/24 Room / Location: [address] Anesthesia Start: 1334 Anesthesia Stop: 1427 Procedure: RIGHT PALPATION EXCISIONAL BIOPSY (Right: Breast) Diagnosis: Mass of right breast, unspecified quadrant (Mass of right breast, unspecified quadrant [N63.10]) Surgeons: Tete Multani MD Responsible Provider: Vasu Barry V, MD Anesthesia Type: general ASA Status: 2 Anesthesia Type: general Airway Type: LMA Last Vitals Vitals Value Taken Time BP 104/66 01/09/24 1525 Temp 36.2 ?C (97.2 ?F) 01/09/24 1525 HR SpO2 64 01/09/24 1525 Resp 18 01/09/24 1525 SpO2 99 % 01/09/24 1525 Post Anesthesia Patient Status Patient Evaluation: PACU. PACU/ICU Patient Condition: stable. Anticipated Disposition: phase 2 then home. Neurological Status: aware and responsive. Pulmonary Status: breathing comfortably on room air Airway Control: returned to baseline unsupported. Cardiovascular Status: stable. Pain Management: clinically adequate Postoperative Hydration: acceptable. Intraoperative Events: no significant anesthesia events Post Operative Nausea/Vomiting Status: no significant post operative nausea or vomiting Recommendation: continue current plan of care. Anesthesia Observations No Documentation SIGNATURE: Vasu Barry MD PATIENT NAME: Yael Ayers DATE: January 09, 2024 TIME: 4:11 PM CSN: [id number] Normal [facility] ANES PRE-OPon 01-09-2024 ANES PRE-OP HNO ID: [id number] Author: VASU BARRY MD Service: Anesthesiology Author Type: Anesthesiologist Type: Anesthesia Preprocedure Evaluation Filed: 01/09/2024 13:15 Note Text: ANESTHESIOLOGY DAY OF SURGERY NOTE : 2000 Procedure Information Date/Time: 01/09/24 1350 Procedure: RIGHT PALPATION EXCISIONAL BIOPSY (Right: Breast) Location: [address] Surgeons: Tete Multani MD Estimated body mass index is 30.04 kg/m? as calculated from the following: Height as of 12/29/23: 162.6 cm (5' 4 ). Weight as of 12/29/23: 79.4 kg (175 lb). Most recent hematocrit and potassium results: Hematocrit 41.7 12/30/2023 Potassium 4.2 12/30/2023 Relevant Problems No relevant active problems I - PHYSICAL EVALUATION AIRWAY Patient intubated: No. Tracheostomy tube not present Mallampati: II. TM distance: >3 FB. Neck ROM: full ROM without neurological symptoms. Mouth opening: adequate. Short neck: no. Thick neck: no DENTAL Dental findings: teeth intact. Additional exam findings: yes. CARDIOVASCULAR Rhythm: regular Rate: normal PULMONARY Breath sounds clear to auscultation. Other findings: Overbite. II - ANESTHESIA PLAN ASA Score: 2 Anesthetic Plan: general Airway type: LMA NPO Status: adequate Beta Andrea Monitoring Plan Monitoring plan: standard ASA. Post Procedure Analgesic Plan Postoperative analgesic plan: multimodal analgesia. Informed Consent Anesthetic risks, benefits, alternatives, personnel and consent discussed: yes. Patient / Responsible [employer] agrees to proceed: yes Patient / Surrogate agrees to blood products: blood products not planned Significant changes in the patient condition since the History and Physical, not otherwise documented in primary service progress note: no. Potential Anesthesia issues that may suggest increased risk of complications or contraindication to planned procedure: none. No vitals data found for the desired time range. No current facility-administered medications on file as of 01/09/2024. Outpatient Medications as of 01/09/2024 Medication Sig acetaminophen (TYLENOL EXTRA STRENGTH) 500 mg tablet Take 2 tablets by mouth every 6 hours as needed for pain. ibuprofen (MOTRIN) 600 mg tablet Take 1 tablet by mouth every 6 hours as needed for pain. gabapentin (NEURONTIN) 100 mg capsule Take 1 capsule by mouth at bedtime as needed (postoperative pain) for up to 5 days. Norethindrone, Contraceptive, 0.35 mg tablet TAKE 1 TABLET (0.35 MG) BY MOUTH IN THE MORNING citalopram (CELEXA) 20 mg tablet Take 20 mg by mouth every morning. buPROPion (WELLBUTRIN) 75 mg tablet TAKE 2 TABLETS (150 MG) BY MOUTH IN THE MORNING. I have interviewed and examined the patient. I have reviewed the medical record and/or the pre-anesthesia evaluation, pertinent labs, and test results. This contains updated information obtained within 48 hours of Surgery/Procedure.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 CNOVon 12-22-2023 CNOV Office Visit (RAFIQ ) YAEL AYERS ([id number]) 2000 F Date Time Provider Department 12/22/23 11:40 AM TETE MULTANI During your visit today, we recorded the following information about you: Temperature Pulse Respiration Blood pressure 98 degrees 85/minute 18/minute 127/77 Weight Last Period 81 kg 11/28/23 Tete Multani MD 12/22/2023 2:55 PM Signed [facility] [place] Department of Breast Surgery [facility] POST OPERATIVE FOLLOW-UP SERVICE DATE: 12/21/2023 DATE OF LAST VISIT: 11/08/23 SUBJECTIVE: Yael Ayers is a 23 year old female who has a past medical history of Asthma and Syncope. and a recent history of a RIGHT breast infection. At her last visit we discussed the following assessment and plan: Ms. Ayers is a 23 year old premenopausal female who has a past medical history of Asthma and Syncope. and a recently diagnosed RIGHT Breast infection. We reviewed her imaging and pathology in detail. Copies of her imaging reports and pathology reports were given previously. Educational materials were provided. I advised that I would avoid on the RIGHT breast until the skin lesion had healed completed. Pumping or breast feeding from the LEFT breast is fine at this time. Reviewed cultures obtained at . Agree with prescription for bactrim. She was given xeroform dressing, guaze and paper tape for dressing the lesion on her RIGHT breast. She is concerned about the palpable area in her RIGHT breast. I advised that I would recommend against surgical intervention while she is , especially as this is a benign lesion by biopsy. She plans to breastfeed for 12 months (January 2024). We will plan for repeat RIGHT US in February with possible excisional biopsy pending results of imaging and exam. She tentatively anticipates that her sister will get in April and she would like to avoid surgery in that month. She was given the opportunity to ask questions. Additional workup needed: yes, Repeat RIGHT breast US in Feb 2024 AND exam on same day Ms. Ayers will return to our office in Feb 2024. Today she reports she was unable to resume after I saw her last. She would like the mass removed sooner rather than later BREAST HISTORY: Patient palpated a right inferior breast mass in October or November 2022 while in 3rd trimester. 01/2023 - Delivered baby [place] mass grew in size February 2023 ([facility]) Right breast US showing a 2.2 x 1.7 x 0.9 cm mass at 6:00. 04/11/2023 ([facility])- Right breast US-guided CNBx showed findings consistent with adenoma. Negative for atypia or malignancy. Unknown clip placed. Continued to grow. 05/17/23 - RIGHT breast US 5:00 4 CMFN - 0.6 x 0.4 x 0.6 cm oval mass - 6 mon US follow up recommended 6:00 4 CMFN - 1.4 x 1.1 x 1.5 cm oval mass - 6 mon US follow up recommended 7:00 4 CMFN - 3.6 x 0.7 x 1.8 cm lobulated mass - 6 mon US follow up recommended 06/14/23 - RIGHT breast US: 5:00 4 CMFN - 0.3 x 0.5 x 0.5 cm oval mass. - 3 month US follow up recommended 6:00 4 CMFN - 1.5 x 1.8 x 1.3 cm oval mass with associated biopsy clip 7:00 4 CMFN - 3.6 x 2.6 x 1 cm lobulated mass, c/w lactating adenoma - 3 month US follow up recommended 09/13/23 - RIGHT breast US - 5:00 4 CMFN - Previously described finding at no longer visualized. 6:00 4 CMFN 1.2 x 1.1 x 2 cm lobulated mass - BIOPSY RECOMMENDED 7:00 4 CMFN 2.3 x 1 x 3 cm oval mass - 6 month follow up of 7:00 lesion recommended. 10/11/23 ([facility]) - RIGHT breast US guided CNB at 6:00, 4 CMFN, with hydromark clip placement - Benign breast tissue with organizing fat necrosis, multinucleated giant cell reaction and lactational changes. Short interval (6 month) follow up recommended) After that biopsy, her skin healed but then RIGHT breast became red and inflamed so she returned to clinic. Started spontaneously draining 1 day before her appointment. 11/02/23 - RIGHT breast US - Diffuse skin thickening and hyperemia at 6:00. Biopsy clip noted. No drainable fluid collection. 11/02/23 - IANDD, washout, placement of harjit drain performed in office. Culture grew cutibacterium avidum (skin microbiota). Started on Keflex QID. Stopped breast feeding. 11/03/23 - Presented to ED reporting harjit drain had fallen out. Treated with zosyn and 1 g vanc in ED. Wound culture - Serratia marcescens, acinetobacter calcoaceticus-baumanni i. Both susceptible to cipro, levo, bactrim 11/08/23 - Bactrim OBJECTIVE: PHYSICAL EXAM: Physical Exam Constitutional: General: She is not in acute distress. Appearance: Normal appearance. HENT: Head: Normocephalic and atraumatic. Eyes: Pupils: Pupils are equal, round, and reactive to light. Pulmonary: Effort: Pulmonary effort is normal. Chest: Breasts: Right: Mass present. No swe (more content not included)... Normal [facility] CNOVon 11-08-2023 CNOV Office Visit (BRCRMN ) YAEL AYERS ([id number]) 2000 F Date Time Provider Department 11/08/23 1:20 PM TETE MULTANI BRJAVAN During your visit today, we recorded the following information about you: Weight Height 77.1 kg 1.626 m Tete Multani MD 11/08/2023 2:22 PM Signed [facility] [place] Department of Breast Surgery [facility] REASON for TODAY'S VISIT: No chief complaint on file. REFERRAL: Self PCP: Jonnathan Pelayo My clinic note and plan will be communicated back to the referring physician by way of shared medical record and/or written letter via [place] mail. HISTORY of PRESENT ILLNESS: Yael Ayers is a 23 year old White premenopausal female who presents today for a second opinion regarding a RIGHT breast mass and infection. She reports since her last visit she has stopped . She drained a significant amount of pus. The area under her left breast has healed significantly in that time. It is no longer draining. BREAST HISTORY: Patient palpated a right inferior breast mass in October or November 2022 while in 3rd trimester. 01/2023 - Delivered baby [place] mass grew in size February 2023 ([facility]) Right breast US showing a 2.2 x 1.7 x 0.9 cm mass at 6:00. 04/11/2023 ([facility])- Right breast US-guided CNBx showed findings consistent with adenoma. Negative for atypia or malignancy. Unknown clip placed. Continued to grow. 05/17/23 - RIGHT breast US 5:00 4 CMFN - 0.6 x 0.4 x 0.6 cm oval mass - 6 mon US follow up recommended 6:00 4 CMFN - 1.4 x 1.1 x 1.5 cm oval mass - 6 mon US follow up recommended 7:00 4 CMFN - 3.6 x 0.7 x 1.8 cm lobulated mass - 6 mon US follow up recommended 06/14/23 - RIGHT breast US: 5:00 4 CMFN - 0.3 x 0.5 x 0.5 cm oval mass. - 3 month US follow up recommended 6:00 4 CMFN - 1.5 x 1.8 x 1.3 cm oval mass with associated biopsy clip 7:00 4 CMFN - 3.6 x 2.6 x 1 cm lobulated mass, c/w lactating adenoma - 3 month US follow up recommended 09/13/23 - RIGHT breast US - 5:00 4 CMFN - Previously described finding at no longer visualized. 6:00 4 CMFN 1.2 x 1.1 x 2 cm lobulated mass - BIOPSY RECOMMENDED 7:00 4 CMFN 2.3 x 1 x 3 cm oval mass - 6 month follow up of 7:00 lesion recommended. 10/11/23 ([facility]) - RIGHT breast US guided CNB at 6:00, 4 CMFN, with hydromark clip placement - Benign breast tissue with organizing fat necrosis, multinucleated giant cell reaction and lactational changes. Short interval (6 month) follow up recommended) After that biopsy, her skin healed but then RIGHT breast became red and inflamed so she returned to clinic. Started spontaneously draining 1 day before her appointment. 11/02/23 - RIGHT breast US - Diffuse skin thickening and hyperemia at 6:00. Biopsy clip noted. No drainable fluid collection. 11/02/23 - IANDD, washout, placement of harjit drain performed in office. Culture grew cutibacterium avidum (skin microbiota). Started on Keflex QID. Stopped breast feeding. 11/03/23 - Presented to ED reporting harjit drain had fallen out. Treated with zosyn and 1 g vanc in ED. Wound culture - Serratia marcescens, acinetobacter calcoaceticus-baumanni i. 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 Comments: Sexual Activity: Not Asked; No partner data on record Contraception: No contraception data on record FAMILY HISTORY: FAMILY HISTORY Problem Relation Age of Onset other (HTN [Other]) Mother other (HTN [Other]) Father Arthritis Maternal Grandmother other (htn [Other]) Maternal Grandmother Leukemia Maternal Grandmother 65 other (HTN [Other]) Maternal Grandfather Arthritis Maternal Grandfather other (Bone cancer) Maternal Aunt 35 other (esophageal cancer) Maternal Uncle 36 Cancer Maternal Uncle 16 unsure of type SOCIAL HISTORY: Employer And Job Title: No employer specified (STUDENT) Years Of Education Completed: Not specified Marital Status: with no children Social History Tobacco Use Smoking status: Former Packs/day: 0.50 Years: 3.00 Additional pack years: 0.00 Total pack years: 1.50 Types: Cigarettes Start date: 2014 Quit date: 2018 Years since quittin.4 Vaping Use Vaping Use: Never used Substance Use Topics Alcohol use: No Comment: Rarely Drug use: No Social History Social History Narrative 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 Normal [facility] HISTORY PHYSICALon 4 HISTORY PHYSICAL HNO ID: [id number] Author: TETE MULTANI MD Service: ? Author Type: Physician Type: H&P Filed: 11/08/2023 14:22 Note Text: [facility] [place] Department of Breast Surgery [facility] REASON for TODAY'S VISIT: No chief complaint on file. REFERRAL: Self PCP: Jonnathan Pelayo My clinic note and plan will be communicated back to the referring physician by way of shared medical record and/or written letter via [place] mail. HISTORY of PRESENT ILLNESS: Yael Ayers is a 23 year old White premenopausal female who presents today for a second opinion regarding a RIGHT breast mass and infection. She reports since her last visit she has stopped . She drained a significant amount of pus. The area under her left breast has healed significantly in that time. It is no longer draining. BREAST HISTORY: Patient palpated a right inferior breast mass in October or November 2022 while in 3rd trimester. 01/2023 - Delivered baby [place] mass grew in size February 2023 ([facility]) Right breast US showing a 2.2 x 1.7 x 0.9 cm mass at 6:00. 04/11/2023 ([facility])- Right breast US-guided CNBx showed findings consistent with adenoma. Negative for atypia or malignancy. Unknown clip placed. Continued to grow. 05/17/23 - RIGHT breast US 5:00 4 CMFN - 0.6 x 0.4 x 0.6 cm oval mass - 6 mon US follow up recommended 6:00 4 CMFN - 1.4 x 1.1 x 1.5 cm oval mass - 6 mon US follow up recommended 7:00 4 CMFN - 3.6 x 0.7 x 1.8 cm lobulated mass - 6 mon US follow up recommended 06/14/23 - RIGHT breast US: 5:00 4 CMFN - 0.3 x 0.5 x 0.5 cm oval mass. - 3 month US follow up recommended 6:00 4 CMFN - 1.5 x 1.8 x 1.3 cm oval mass with associated biopsy clip 7:00 4 CMFN - 3.6 x 2.6 x 1 cm lobulated mass, c/w lactating adenoma - 3 month US follow up recommended 09/13/23 - RIGHT breast US - 5:00 4 CMFN - Previously described finding at no longer visualized. 6:00 4 CMFN 1.2 x 1.1 x 2 cm lobulated mass - BIOPSY RECOMMENDED 7:00 4 CMFN 2.3 x 1 x 3 cm oval mass - 6 month follow up of 7:00 lesion recommended. 10/11/23 ([facility]) - RIGHT breast US guided CNB at 6:00, 4 CMFN, with hydromark clip placement - Benign breast tissue with organizing fat necrosis, multinucleated giant cell reaction and lactational changes. Short interval (6 month) follow up recommended) After that biopsy, her skin healed but then RIGHT breast became red and inflamed so she returned to clinic. Started spontaneously draining 1 day before her appointment. 11/02/23 - RIGHT breast US - Diffuse skin thickening and hyperemia at 6:00. Biopsy clip noted. No drainable fluid collection. 11/02/23 - IANDD, washout, placement of harjit drain performed in office. Culture grew cutibacterium avidum (skin microbiota). Started on Keflex QID. Stopped breast feeding. 11/03/23 - Presented to ED reporting harjit drain had fallen out. Treated with zosyn and 1 g vanc in ED. Wound culture - Serratia marcescens, acinetobacter calcoaceticus-baumanni i. 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 Comments: Sexual Activity: Not Asked; No partner data on record Contraception: No contraception data on record FAMILY HISTORY: FAMILY HISTORY Problem Relation Age of Onset other (HTN [Other]) Mother other (HTN [Other]) Father Arthritis Maternal Grandmother other (htn [Other]) Maternal Grandmother Leukemia Maternal Grandmother 65 other (HTN [Other]) Maternal Grandfather Arthritis Maternal Grandfather other (Bone cancer) Maternal Aunt 35 other (esophageal cancer) Maternal Uncle 36 Cancer Maternal Uncle 16 unsure of type SOCIAL HISTORY: Employer And Job Title: No employer specified (STUDENT) Years Of Education Completed: Not specified Marital Status: with no children Social History Tobacco Use Smoking status: Former Packs/day: 0.50 Years: 3.00 Additional pack years: 0.00 Total pack years: 1.50 Types: Cigarettes Start date: 2014 Quit date: 2018 Years since quittin.4 Vaping Use Vaping Use: Never used Substance Use Topics Alcohol use: No Comment: Rarely Drug use: No Social History Social History Narrative 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 Normal [facility] CNPNon 11-04-2023 CNPN Telephone (BRCRMN) YAEL AYERS ([id number]) 2000 F Date Time Provider Department 11/04[facility] During your visit today, we recorded the following information about you: Germaine Kwan 11/04/2023 11:35 AM Signed Pt would like to speak to Reta she stated she was in the hospital last night and was not able attend her appointment this morning she has questions and concerns please, pt is experiencing some pain 5. Katie Saeed, RN 11/04/2023 12:33 PM Signed I called and spoke with Yael. Pt explains she went to Emergency department last night due to harjit fell out and she was in pain. Yael states she was given IV vancomycin and zosyn IV. Yael states, I had hives once vancomycin was completed and they gave me benadryl. Yael states, I do feel much better since getting these meds and it is not as red anymore. Offered appt with Dr Faria TuesdayNovember 06, pt declined. Yael states she would like another opinion and if possible from Dr Multani. Offered appt on TuesdayNovember [address] Multani, pt is agreeable. Reinforced to continue Keflex, and please go back to emergency room if anything worsens over the weekend. Pt stated understanding. Allergies As of Date: 11/04/2023 Noted Allergy Reaction VENOM-HONEY BEE 05/17/2023 7 - Swelling BEES 04/11/2023 7 - Swelling BEESWAX 11/10/2018 14 - Other: See Comments Date Reviewed: 10/11/2023 Reviewed by: Cookie Garcia RT(R) - Fully Assessed Prescriptions as of 11/04/2023 - cephALEXin (KEFLEX) 500 mg capsule Take 1 capsule by mouth four times daily for 5 days. - Hnnmzgrg-Zl-Ugq-Fe-FA tab Take 1 tablet by mouth once daily. - cholecalciferol (VITAMIN D-3) 50 mcg (2,000 unit) tablet Take 1 tablet by mouth once daily. - Norethindrone, Contraceptive, 0.35 mg tablet TAKE 1 TABLET (0.35 MG) BY MOUTH IN THE MORNING - citalopram (CELEXA) 20 mg tablet Take 20 mg by mouth every morning. - buPROPion (WELLBUTRIN) 75 mg tablet TAKE 2 TABLETS (150 MG) BY MOUTH IN THE MORNING. Meds Comments as of 05/13/2014: BCP implant Problem List As Of Date 11/04/2023 Noted Resolved Back pain [M54.9] 05/13/2014 Anxiety disorder [F41.9] 05/17/2023 Encounter for screening for human papillomaviru*04/21/20 22 [Z34.90] 06/25/2022 Irregular menstruation, unspecified [N92.6] 06/24/2022 Other specified noninflammatory disorders of va*08/21/2022 Other specified related conditions, t*02/08/2023 Unspecified lump in unspecified breast [N63.0] 03/23/2023 Acquired scoliosis [M41.9] 05/17/2023 Anemia due to acute blood loss [D62] 02/08/2023 Asthma [J45.909] 05/17/2023 Irritable bowel syndrome [K58.9] 05/17/2023 Sinus tachycardia [R00.0] 05/17/2023 Syncope and collapse [R55] 05/17/2023 Encounter Status:Closed by KATIE SAEED on 11/04/23 Normal [facility] Bacteria identifiedon 2023 Bacteria identified Cx Nom (Unsp spec) Test: Tissue/Wound Culture/Smear Specimen Source: Wound/Tissue Specimen Type: Tissue/Biopsy Specimen Date: 11/03/20232106 Result Date: 11/06/20231433 Result Status: Final result Abnormal: Yes Resulting Lab: [facility] [id number] [place] [address] CULTURE (1+) Rare Serratia marcescens group (Abnormal) (1+) Rare Acinetobacter calcoaceticus-baumanni i complex (Abnormal) STAIN (3+) Moderate Polymorphonuclear leukocytes No organisms seen SUSCEPTIBILITY Serratia marcescens group METHOD MICROSCAN ------- ------- AMOXICILLIN/CLAVULANAT E >16/8 mcg/mL Resistant AMPICILLIN 16.000 mcg/mL Resistant AMPICILLIN/SULBACTAM 16/8 mcg/mL Resistant CEFAZOLIN >16 mcg/mL Resistant CEFEPIME CEFTAZIDIME CEFTRIAXONE <=1.000 mcg/mL Susceptible CEFUROXIME >16 mcg/mL Resistant CIPROFLOXACIN <=0.250 mcg/mL Susceptible GENTAMICIN <=2.000 mcg/mL Susceptible LEVOFLOXACIN <=0.500 mcg/mL Susceptible PIPERACILLIN/TAZOBACTA M <=8.000 mcg/mL Susceptible TOBRAMYCIN TRIMETHOPRIM/SULFAMETH OXAZOLE <=0.5/9.5 mcg/mL Susceptible Acinetobacter calcoaceticus-baumanni i complex METHOD MICROSCAN ------- ------- AMOXICILLIN/CLAVULANAT E AMPICILLIN AMPICILLIN/SULBACTAM <=4/2 mcg/mL Susceptible CEFAZOLIN CEFEPIME 8 mcg/mL Susceptible CEFTAZIDIME 8.000 mcg/mL Susceptible CEFTRIAXONE CEFUROXIME CIPROFLOXACIN <=0.250 mcg/mL Susceptible GENTAMICIN <=2.000 mcg/mL Susceptible LEVOFLOXACIN <=0.500 mcg/mL Susceptible PIPERACILLIN/TAZOBACTA M <8.000 mcg/mL Susceptible TOBRAMYCIN <=2 mcg/mL Susceptible TRIMETHOPRIM/SULFAMETH OXAZOLE <=0.5/9.5 mcg/mL Susceptible Abnormal [facility] Comment on above: Performed By: #### [id number] #### NORMA Nelson ([id number]) [facility] ([facility]) [address] [place] [address] Bacteria identified Cx Nom (Bld) Test: Blood Culture Specimen Source: Peripheral Venipuncture Specimen Type: Blood culture Specimen Date: 11/03/2023 2100 Result Date: 11/08/2023 1202 Result Status: Final result Abnormal: No Resulting Lab: [facility] [address] [place] [address] CULTURE No growth at 4 days - FINAL REPORT Normal [facility] Comment on above: Performed By: #### 6 00-7 #### NORMA Nelson ([id number]) [facility] ([facility]) [address] [place] [address] CBC W Auto Differential pane l (Bld)on 11-03-2023 Basophils (Bld) [#/Vol] 0.06 10*3/uL [facility] Basophils/100 WBC (Bld) 0.5 % 0.0 - 2.0 % [facility] Eosinophils (Bld) [#/Vol] 0.21 10*3/uL [facility] Eosinophils/100 WBC (Bld) 1.9 % 0.0 - 6.0 % [facility] Erythrocyte distribution width (RBC) [Ratio] 12.8 % 11.5 - 14.5 % [facility] Hematocrit (Bld) [Volume fraction] 41.2 % 36.0 - 46.0 % [facility] Hemoglobin (Bld) [Mass/Vol] 13.0 g/dL 12.0 - 16.0 g/dL [facility] Immature granulocytes (Bld) [#/Vol] 0.04 10*3/uL [facility] Immature granulocytes/100 WBC (Bld) 0.4 % 0.0 - 0.9 % [facility] Comment on above: Immature Granulocyte Count (IG) includes promyelocytes, myelocytes and metamyelocytes but does not include bands. Percent differential counts (%) should be interpreted in the context of the absolute cell counts (cells/UL). Interpretation and review of laboratory results Abnormal [facility] Lymphocytes (Bld) [#/Vol] 2.02 10*3/uL [facility] Lymphocytes/100 WBC (Bld) 17.9 % 13.0 - 44.0 % [facility] MCH (RBC) [Entitic mass] 27.5 pg 26.0 - 34.0 pg [facility] MCHC (RBC) [Mass/Vol] 31.6 g/dL Low 32.0 - 36.0 g/dL [facility] MCV (RBC) [Entitic vol] 87 fL 80 - 100 fL [facility] Monocytes (Bld) [#/Vol] 0.87 10*3/uL [facility] Monocytes/100 WBC (Bld) 7.7 % 2.0 - 10.0 % [facility] Neutrophils (Bld) [#/Vol] 8.11 10*3/uL High [facility] Comment on above: Percent differential counts (%) should be interpreted in the context of the absolute cell counts (cells/uL). Neutrophils/100 WBC (Bld) 71.6 % 40.0 - 80.0 % [facility] Nucleated RBC/100 WBC (Bld) [Ratio] 0.0 % [facility] Platelets (Bld) [#/Vol] 290 10*3/uL [facility] RBC (Bld) [#/Vol] 4.72 10*6/uL [facility] WBC (Bld) [#/Vol] 11.3 10*3/uL [facility] Basophils (Bld) [#/Vol] 0.06 x10*3/uL Normal 0.00-0.10 [facility] Comment on above: Performed By: #### 5 7021-8 #### MIKE SON ([id number]) [facility] ([facility]) [address] [place] [address] Basophils/100 WBC (Bld) 0.5 % Normal 0.0-2.0 [facility] Comment on above: Performed By: #### 5 7021-8 #### MIKE SON ([id number]) [facility] ([facility]) [address] [place] [address] Eosinophils (Bld) [#/Vol] 0.21 x10*3/uL Normal 0.00-0.70 [facility] Comment on above: Performed By: #### 5 7021-8 #### MKIE SON ([id number]) [facility] ([facility]) [address] [place], [place] [address] Eosinophils/100 WBC (Bld) 1.9 % Normal 0.0-6.0 [facility] Comment on above: Performed By: #### 7021-8 #### MIKE SON ([id number]) [facility] ([facility]) [address] [place] [address] Erythrocyte distribution width (RBC) [Ratio] 12.8 % Normal 11.5-14.5 [facility] Comment on above: Performed By: #### 5 7021-8 #### MIKE SON ([id number]) [facility] ([facility]) [address] [place] [address] Hematocrit (Bld) [Volume fraction] 41.2 % Normal 36.0-46.0 [facility] Comment on above: Performed By: #### 5 7021-8 #### MIKE SON ([id number]) [facility] ([facility]) [address] [place] [address] Hemoglobin (Bld) [Mass/Vol] 13.0 g/dL Normal 12.0-16.0 [facility] Comment on above: Performed By: #### 5 7021-8 #### MIKE SON ([id number]) [facility] ([facility]) [address] [place] [address] Immature granulocytes (Bld) [#/Vol] 0.04 x10*3/uL Normal 0.00-0.70 [facility] Comment on above: Performed By: #### 5 7021-8 #### MIKE SON ([id number]) [facility] ([facility]) [address] [place], [place] [address] Immature granulocytes/100 WBC (Bld) 0.4 % Normal 0.0-0.9 [facility] Comment on above: Result Comment: Joaquina ture Granulocyte Count (IG) includes promyelocytes, myelocytes and metamyelocytes but does not include bands. Percent differential counts (%) should be interpreted in the context of the absolute cell counts (cells/UL). Performed By: #### 5 7021-8 #### MIKE SON ([id number]) [facility] ([facility]) [address] [place] [address] Lymphocytes (Bld) [#/Vol] 2.02 x10*3/uL Normal 1.20-4.80 [facility] Comment on above: Performed By: #### 5 7021-8 #### MIKE SON ([id number]) [facility] ([facility]) [address] [place] [address] Lymphocytes/100 WBC (Bld) 17.9 % Normal 13.0-44.0 [facility] Comment on above: Performed By: #### 5 7021-8 #### MIKE SON ([id number]) [facility] ([facility]) [address] [place] [address] MCH (RBC) [Entitic mass] 27.5 pg Normal 26.0-34.0 [facility] Comment on above: Performed By: #### 5 7021-8 #### MIKE SON ([id number]) [facility] ([facility]) [address] [place] [address] MCHC (RBC) [Mass/Vol] 31.6 g/dL Low 32.0-36.0 [facility] Comment on above: Performed By: #### 5 7021-8 #### MIKE SON ([id number]) [facility] ([facility]) [address] [place] [address] MCV (RBC) [Entitic vol] 87 fL Normal 80-100 [facility] Comment on above: Performed By: #### 5 7021-8 #### MIKE SON ([id number]) [facility] ([facility]) [address] [place] [address] Monocytes (Bld) [#/Vol] 0.87 x10*3/uL Normal 0.10-1.00 [facility] Comment on above: Performed By: #### 5 7021-8 #### MIKE SON ([id number]) [facility] ([facility]) [address] [place] [address]35[address] Monocytes/100 WBC (Bld) 7.7 % Normal 2.0-10.0 [facility] Comment on above: Performed By: #### 5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 possible therapeutic interventions and have agreed un 3 months follow up. PLAN: Follow-up with me in three months with breast ultrasound. All questions were answered; patient has no further concerns. I spent a total of 30 minutes on the date of the service which included preparing to see the patient, [id number] patient care, completing clinical documentation, obtaining and/or reviewing separately obtained history, performing a medically appropriate examination, counseling and educating the patient/family/caregiv er, ordering medications, tests, or procedures, communicating with other HCPs (not separately reported), independently interpreting results (not separately reported), and communicating results to the patient/family/caregiv er. Narda Faria MD Allergies As of Date: 06/14/2023 Noted Allergy Reaction VENOM-HONEY BEE 05/17/2023 7 - Swelling BEES 04/11/2023 7 - Swelling BEESWAX 11/10/2018 14 - Other: See Comments Date Reviewed: 06/14/2023 Reviewed by: Katie Saeed RN - Fully Assessed Reason for Visit: Established Patient [175] Primary Visit Diagnosis:Mass of lower outer quadrant of right breast [N63.13] Prescriptions as of 06/14/2023 - Kdnhkmag-St-Ixf-Fe-FA tab Take 1 tablet by mouth once daily. - cholecalciferol (VITAMIN D-3) 50 mcg (2,000 unit) tablet Take 1 tablet by mouth once daily. - Norethindrone, Contraceptive, 0.35 mg tablet TAKE 1 TABLET (0.35 MG) BY MOUTH IN THE MORNING - citalopram (CELEXA) 20 mg tablet Take 20 mg by mouth every morning. - buPROPion (WELLBUTRIN) 75 mg tablet TAKE 2 TABLETS (150 MG) BY MOUTH IN THE MORNING. Meds Comments as of 05/13/2014: BCP implant Problem List As Of Date 06/14/2023 Noted Resolved Back pain [M54.9] 05/13/2014 Anxiety disorder [F41.9] 05/17/2023 Encounter for screening for human papillomaviru*04/21/20 22 [Z34.90] 06/25/2022 Irregular menstruation, unspecified [N92.6] 06/24/2022 Other specified noninflammatory disorders of va*08/21/2022 Other specified related conditions, t*02/08/2023 Unspecified lump in unspecified breast [N63.0] 03/23/2023 Acquired scoliosis [M41.9] 05/17/2023 Anemia due to acute blood loss [D62] 02/08/2023 Asthma [J45.909] 05/17/2023 Irritable bowel syndrome [K58.9] 05/17/2023 Sinus tachycardia [R00.0] 05/17/2023 Syncope and collapse [R55] 05/17/2023 Level of Service: OFFICE/OUTPATIENT ESTABLISHED MOD MDM 30 MIN [12263] Encounter Status:Closed by NARDA FARIA on 06/14/23 Normal [facility] Contractually BREAST LTD RTon 06-14 [facility] Contractually BREAST ShelfFlip RT * * *Final Report* * * DATE OF EXAM: Jun 14 2023 11:51AM [facility] 0594 - [facility] Contractually BREAST ShelfFlip RT / PROCEDURE REASON: Mass of lower outer quadrant of right breast * * * * Physician Interpretation * * * * RESULT: #[id number] - [facility] Contractually BREAST [facility] RT LIMITED ULTRASOUND OF RIGHT BREAST: 06/14/2023 HISTORY: Mass Of Lower Outer Quadrant Of Right Breast. RESULT: Comparison is made to exam dated: 05/17/2023 [facility]. Color flow and real-time ultrasound of the right breast were performed. Escalera scale images of the real-time examination were reviewed. There is a 0.3 cm x 0.5 cm x 0.5 cm oval mass in the right breast at 5 o'clock 4 cm from the nipple. This oval mass is hypoechoic. This abnormality is decreased in size and correlates as palpated and with ultrasound findings. Color flow imaging demonstrates that there is no vascularity present. There also is a 1.5 cm x 1.8 cm x 1.3 cm oval mass in the right breast at 6 o'clock middle depth 4 cm from the nipple. This oval mass is of mixed echogenicity. This abnormality is not significantly changed and correlates as palpated and with ultrasound findings. There is an associated biopsy clip. Color flow imaging demonstrates that there is no vascularity present. Additionally, there is a 3.6 cm x 2.6 cm x 1 cm lobulated mass in the right breast at 7 o'clock posterior depth 4 cm from the nipple. This lobulated mass is hypoechoic. This abnormality is not significantly changed and correlates as palpated and with ultrasound findings. Color flow imaging demonstrates that there is no vascularity present. 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 Lactational changes are present. IMPRESSION: PROBABLY BENIGN - SHORT TERM INTERVAL FOLLOW-UP RECOMMENDED The 0.3 cm x 0.5 cm x 0.5 cm oval mass in the right breast at 5 o'clock is probably benign. A follow-up ultrasound in 3 months is recommended. The 1.5 cm x 1.8 cm x 1.3 cm oval mass in the right breast at 6 o'clock middle depth is probably benign. The 3.6 cm x 2.6 cm x 1 cm lobulated mass in the right breast at 7 o'clock posterior depth is probably benign. A follow-up ultrasound in 3 months is recommended. A follow-up ultrasound in 3 months is recommended. The exam was reviewed by a staff physician. SUMMARY: The patient is under the clinical care of Dr. Faria. Renetta Egan M.D., mc, am/mckinley:06/14/2023 12:55:28 Humane Officer(s): RT Chiki(R)(M), [facility] Ultrasound BI-RADS: 3 Probably benign finding - short term interval follow-up recommended Multiple national specialty organizations have released breast cancer screening guidelines for women at average risk for developing breast cancer - guidelines that are based on both evidence and opinion, yet differ on when to start and how often to screen for breast cancer. With representation from Breast Imaging, Internal Medicine, Women's Health, Family Medicine, and Medical/Surgical Oncology, the [facility] has carefully reviewed the data and reached the following consensus: 1) All women should engage in shared decision-making with their providers to decide when to start and how often to screen; 2) All women should have the opportunity to start screening mammography at age 40; 3) For women ages 45-55, we recommend annual screening mammograms; 4) For women ages 55 and over, we support both the transition from an annual to a biennial interval if this aligns more with patient's values and preferences, or continuation with annual screening; 5) All women should discuss with their providers when to stop screening mammograms. Plumbing Manager: Mckinley Transcribe Date/Time: Jun 14 2023 11:21A Dictated by : KRISTI EGAN MD This examination was interpreted and the report reviewed and electronically signed by: RENETTA SULLIVAN MD on Jun 14 2023 12:55PM EST [id number] Normal [facility] CNOVon 05-17-2023 CNOV Office Visit (BRCRMN ) YAEL AYERS ([id number]) 2000 F Date Time Provider Department 05/17/23 11:00 AM NARDA FARIA BRCRMN During your visit today, we recorded the following information about you: Narda Faria MD 05/17/2023 2:56 PM Signed [facility] [place] Department of General Surgery [facility] REASON for TODAY'S VISIT: Surgical consultation for breast lump REFERRAL: NA PCP: Jonnathan Pelayo My clinic note and plan will be communicated back to the referring physician by way of shared medical record and/or written letter via [place] mail. HISTORY of PRESENT ILLNESS: Yael Ayers is a 23 year old 3 month female who presents today regarding right breast masses. Largest mass biopsied at outside facility and determined to be adenoma. Patient noticed multiple painful smaller right breast masses following biopsy. Ms. Ayers initially noticed a nontender 2 cm lump in the inferior right breast toward the end of her in October or November 2022 (delivered a baby boy named KOREY in January). She felt that the area was slowly getting bigger. The mass was followed by her OB and a right breast US was ordered when the mass continued to enlarge to at least twice the size at her 6 week post visit. She underwent right breast biopsy on 04/11/2023 at outside hospital and patient reports she was was told it was a benign mass which did not have to do with . She then noticed an additional 3 smaller right breast masses less than 1 week after biopsy. The masses have become more painful over last few weeks. Patient is still her baby and does not experience additional pain with . She has also noticed dimpling of her right nipple since early . Patient has a history of cyclical bilateral breast cysts. She denies any nipple discharge (other than breastmilk), breast skin changes, or nipple inversion. BREAST HISTORY: Patient palpated a right inferior breast mass in October or November 2022 while in 3rd trimester. February 2023 ([facility]) Right breast US showing a 2.2 x 1.7 x 0.9 cm mass at 6:00. 04/11/2023 ([facility])- Right breast US-guided CNBx showed findings consistent with adenoma. Negative for atypia or malignancy. Unknown clip placed. 05/17/2023 ([facility]) - right breast ultrasound showed a 0.6 cm oval mass at 5:00 4 cmFN which correlates as palpated. 1.5 cm oval mass at 6:00 4 cmFN which correlates as palpated and has associated biopsy clip. 3.6 cm lobulated mass at 7:00 4 cmFN which correlates as palpated. 6 month follow up ultrasound recommended for all three sites. 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 OB History T0 L1 SAB0 IAB0 Ectopic0 Multiple0 Live Births1 Comment: Currently breast feeding [employer]d [employer] Developer History LMP: 01/25/2014, Having periods Age at Menarche: 11 Age at First : 11 Age at Menopause: Jd [employer] Developer History Comments: Sexual Activity: Not Asked; No partner data on record Contraception: No contraception data on record She is currently her child. Gynecologic surgery: She has not had INDEPENDENT BEAUTY CONSULTANT surgery FAMILY HISTORY: FAMILY HISTORY Problem Relation Age of Onset other (HTN [Other]) Mother other (HTN [Other]) Father Arthritis Maternal Grandmother other (htn [Other]) Maternal Grandmother Leukemia Maternal Grandmother 65 other (HTN [Other]) Maternal Grandfather Arthritis Maternal Grandfather other (Bone cancer) Maternal Aunt 35 other (esophageal cancer) Maternal Uncle 36 Cancer Maternal Uncle 16 unsure of type The Patient is not of Ashkenazic Ancestry. She has 1 sisters. History of Genetic Testing: No Patient denies any known personal or family history of Hemophilia, VonWillebrands Disease. Patient denies any known personal or family history of DVT, PE or coagulopathy. Needed blood transfusion during . 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 PAST MEDICAL HISTORY: PAST MEDICAL HISTORY Diagnosis Date Asthma Syncope one episode 2 years ago PAST SURGICAL HISTORY: PAST RAMSEY (more content not included)... Normal [facility] Contractually BREAST LTD RTon 05-17 [employer] BREAST Shelf[employer]ip RT * * *Final Report* * * DATE OF EXAM: May 17 2023 9:52AM [facility] 0594 - [employer] BREAST [employer] RT / PROCEDURE REASON: Mass of right breast, unspecified quadrant * * * * Physician Interpretation * * * * RESULT: #[id number] - [facility] Contractually BREAST [employer] RT LIMITED ULTRASOUND OF RIGHT BREAST: 05/17/2023 HISTORY: Mass Of Right Breast, Unspecified Quadrant. RESULT: No prior exams were available for comparison. Color flow and real-time ultrasound of the right breast were performed. There is a 0.6 cm x 0.4 cm x 0.6 cm oval mass in the right breast at 5 o'clock anterior depth 4 cm from the nipple. This oval mass is hypoechoic. This correlates as palpated. Color flow imaging demonstrates that there is no vascularity present. There also is a 1.4 cm x 1.1 cm x 1.5 cm oval mass in the right breast at 6 o'clock middle depth 4 cm from the nipple. This oval mass is hypoechoic and hyperechoic. This correlates as palpated. There is an associated biopsy clip. Color flow imaging demonstrates that there is no vascularity present. Additionally, there is a 3.6 cm x 0.7 cm x 1.8 cm lobulated mass in the right breast at 7 o'clock posterior depth 4 cm from the nipple. This lobulated mass is hypoechoic. This correlates as palpated. IMPRESSION: PROBABLY BENIGN - SHORT TERM INTERVAL FOLLOW-UP RECOMMENDED The 0.6 cm x 0.4 cm x 0.6 cm oval mass in the right breast at 5 o'clock anterior depth is probably benign. A follow-up ultrasound in 6 months is recommended. The 1.4 cm x 1.1 cm x 1.5 cm oval mass in the right breast at 6 o'clock middle depth is probably benign. A follow-up ultrasound in 6 months is recommended. The 3.6 cm x 0.7 cm x 1.8 cm lobulated mass in the right breast at 7 o'clock posterior depth is probably benign. A follow-up ultrasound in 6 months is recommended. A follow-up right ultrasound in 6 months is recommended to demonstrate stability. Leatha ferreira/mckinley:05/17/2023 10:11:18 Humane Officer(s): RT Selvin(Mandy)(M), [facility] BI-RADS: 3 Probably benign finding - short term interval follow-up recommended Multiple national specialty organizations have released breast cancer screening guidelines for women at average risk for developing breast cancer - guidelines that are based on both evidence and opinion, yet differ on when to start and how often to screen for breast cancer. With representation from Breast Imaging, Internal Medicine, Women's Health, Family Medicine, and Medical/Surgical Oncology, the [facility] has carefully reviewed the data and reached the following consensus: 1) All women should engage in shared decision-making with their providers to decide when to start and how often to screen; 2) All women should have the opportunity to start screening mammography at age 40; 3) For women ages 45-55, we recommend annual screening mammograms; 4) For women ages 55 and over, we support both the transition from an annual to a biennial interval if this aligns more with patient's values and preferences, or continuation with annual screening; 5) All women should discuss with their providers when to stop screening mammograms. Plumbing Manager: Mckinley Transcribe Date/Time: May 17 2023 9:52A Dictated by : LEATHA BEE MD This examination was interpreted and the report reviewed and electronically signed by: LEATHA BEE MD on May 17 2023 10:11AM EST [id number] Normal [facility] Fetaldex / Kleihauer Betkeon 02-09-2023 Kleihauer Betke Ratio 0.0007 Ratio Normal [facility] Comment on above: Result Comment: Feta l maternal hemorrhage up to 15 ml 1 vial of Rhogam if indicated --- 02/09/231836 --- Ajay Stern previously reported as: 0.0007 Ratio PERFORMED BY: [facility] [address] [place] [address] PATHOLOGIST FOOTWEAR STITCHER ARLEY CASTRO M.D. US PREG CERVICAL LENGTHon [...] KEV WOLFF Date: 2022-09-27 16:00 Normal [facility] AFP MATERNAL FOR SPINA BIFID Aon 09-17-2022 AFP MoM 1.64 Normal [facility] Comment on above: Performed By: #### C T/NGNA #### [facility] [address] [address] [address] Phill Og AFP Value 67.6 ng/mL Normal [facility] Comment on above: Performed By: #### C T/NGNA #### [facility] [address] [address] [address] Phill Og AFP, Serum for Spina Bifida Report Normal [facility] Comment on above: Performed By: #### C T/NGNA #### [facility] [address] [address] [address] Phill Og Comment Comment Normal [facility] Comment on above: Result Comment: Katie Shay, Ph.D., [facility] Director . References: Available Upon Request. . Multiples Of Median Cutoffs For AFP Elevations Wheeler 2.5 Black 2.8 IDD 2.0 Twins 4.5 Abbreviation Definitions IDD - Insulin Dep Diabetes OSBR - Open Spina Bifida Risk . For further inquiries contact [employer] [facility] at [phone]. . This test was developed and its performance characteristics determined by [employer]. It has not been cleared or approved by the Food and Drug Administration. Performed By: #### C T/NGNA #### [facility] [address] [address] [address] Phill Og Gest Age Collection Date 18.4 weeks Normal [facility] Comment on above: Performed By: #### C T/NGNA #### [facility] [address] [place] [address] Dr. Phill Og Gestat, Age Based on Ultrasound Normal [facility] Comment on above: Result Comment: 14.4 on 08/18/2022 Recalculations are not recommended when gestational dating by LMP and ultrasound are within 10 days. Performed By: #### C T/NGNA #### [facility] [address] [place] [address] Dr. Phill Og Insulin Dep Diabetes No Normal [facility] Comment on above: Performed By: #### C T/NGNA #### [facility] [address] [place] [address] Dr. Phill Og Interpretation Comment Normal [facility] Comment on above: Result Comment: Inte rpretation: [...] Customer Services to discuss available options. The [employer] recommends amniocentesis be offered to women age 35 and older. Performed By: #### C T/NGNA #### [facility] [address] [place] [address] Dr. Phill Og [age] Normal [facility] Comment on above: Performed By: #### C T/NGNA #### [facility] [address] [place] [address] Dr. Phill Og Multiple Gestation No Normal [facility] Comment on above: Performed By: #### C T/NGNA #### [facility] [address] [place] [address] Dr. Phill Og OSBR Risk [address] [place] [address] [facility] Comment on above: Performed By: #### C T/NGNA #### [facility] [address] [place] [address] Dr. Phill Og PDF . Normal [facility] Comment on above: Performed By: #### C T/NGNA #### [facility] [address] [place] [address] Dr. Phill Og Race Normal [facility] Comment on above: Performed By: #### C T/NGNA #### [facility] [address] [place] [address] Dr. Phill Og Test Results: Negative Normal [facility] Comment on above: Performed By: #### C T/NGNA #### [facility] [address] [place] [address] Dr. Phill Og CHLAMYDIA/GONOCOCCUS DANICA (SW AB/URINE/PAPon 08-21-2022 Chlamydia trachomatis, DANICA Negative Normal Negative [facility] Comment on above: Performed By: #### C T/NGNA #### [facility] [address] [place] [address] Dr. Phill Og Neisseria gonorrhoeae, DANICA Negative Normal Negative [facility] Comment on above: Performed By: #### C T/NGNA #### [facility] [address] [place] [address] Dr. Phill Og VAGINITIS/VAGINOSIS DNA PROB Felipe 08-20-2022 Geo species Positive Abnormal Negative [facility] Comment on above: Performed By: #### V AGINT #### [facility] [address] [place] [address] Dr. Phill Og Gardnerella vaginalis Positive Abnormal Negative [facility] Comment on above: Performed By: #### V AGINT #### [facility] [address] [place] [address] Dr. Phill Og Trichomonas vaginalis Negative Normal Negative [facility] Comment on above: Performed By: #### V AGINT #### [facility] [address] [place] [address] Dr. Phill Og HEP B SURFACE ANTIGEN SCREEN on 06-25-2022 HBsAg Screen Negative Normal Negative [facility] Comment on above: Performed By: #### H BSANS #### [facility] [address] [place] [address] Dr. Phill Og HEPATITIS C VIRUS AB W/ REFL EX QUANTon 06-25-2022 HCV AB <0.1 Normal 0.0-0.9 [facility] Comment on above: Performed By: #### H CVPCRR #### [facility] [address] [place] [address] Dr. Phill Og Interpretation: Comment Normal [facility] Comment on above: Result Comment: Nega tive Not infected with HCV, unless recent infection is suspected or other evidence exists to indicate HCV infection. Performed By: #### H CVPCRR #### [facility] [address] [place] [address] Dr. Phill Og HIV 1 AND 2 WITH REFLEXon HIV Screen 4th Generation wRfx Non-Reactive Normal Non Reactive [facility] Comment on above: Result Comment: HIV Negative HIV-1/HIV-2 antibodies and HIV-1 p24 antigen were NOT detected. There is no laboratory evidence of HIV infection. Performed By: #### H IV12 #### [facility] [address] [place] [address] Dr. Phill Og RPR QUANTon 06-25-2022 Rapid Plasma Reagin, Quant Non-Reactive Normal NonRea<1:1 [facility] Comment on above: Result Comment: Plea se Note: This test does not meet current guidelines for screening and diagnosis of syphilis. This test is intended for following treatment response in patients being treated for syphilis infection. To screen for syphilis infection, a reflex cascade that includes both RPR and a treponema-specific assay should be utilized, such as Treponema pallidum (Syphilis) Screening [place] (897380) or Rapid Plasma Reagin (RPR) Test With Reflex to Quantitative RPR and Confirmatory Treponema pallidum Antibodies (944912). Performed By: #### R PRQ #### [facility] [address] [place] [address] Dr. Phill Og RUBELLA AB IGGon 06-25-2022 Rubella Antibodies, IgG 6.40 index Normal Immune >0.99 [facility] Comment on above: Result Comment: Non- immune <0.90 Equivocal 0.90 - 0.99 Immune >0.99 Performed By: #### R UBIGG #### [facility] [address] [place] [address] Dr. Phill Og CBC AUTO DIFFon 06-24-2022 BASO # 0.0 103/ul Normal 0.0-0.1 [facility] Comment on above: Performed By: #### C BC #### [facility] [address] [place] [address] Dr. Phill Og Basophils/100 WBC (Bld) 0.2 % Normal 0.2-2.0 [facility] Comment on above: Performed By: #### C BC #### [facility] [address] [place] [address] Dr. Phill Og EO # 0.1 103/ul Normal 0.0-0.7 [facility] Comment on above: Performed By: #### C BC #### [facility] [address] [place] [address] Dr. Phill Og Eosinophils/100 WBC (Bld) 0.5 % Critically low 0.9-7.0 [facility] Comment on above: Performed By: #### C BC #### [facility] [address] [place] [address] Dr. Phill Og Erythrocyte distribution width (RBC) [Ratio] 12.5 % Normal 11.0-15.0 [facility] Comment on above: Performed By: #### C BC #### [facility] [address] [place] [address] Dr. Phill Og Hematocrit (Bld) [Volume fraction] 45.5 % Normal 36.0-48.0 [facility] Comment on above: Performed By: #### C BC #### [facility] [address] [place] [address] Dr. Phill Og Hemoglobin (Bld) [Mass/Vol] 13.7 g/dL Normal 12.0-16.0 [facility] Comment on above: Performed By: #### C BC #### [facility] [address] [address] [address] Phill Og IG # 0.04 10e3/ul Critically high 0.00-0.03 [facility] Comment on above: Performed By: #### C BC #### [facility] [address] [address] [address] Phill Og IG % 0.3 % Normal 0.0-0.5 [facility] Comment on above: Performed By: #### C BC #### [facility] [address] [place] [address] Dr. Phill Og LYMPH # 2.7 103/ul Normal 1.2-3.8 [facility] Comment on above: Performed By: #### C BC #### [facility] [address] [place] [address] Dr. Phill Og Lymphocytes/100 WBC (Bld) 21.7 % Normal 20.5-60.0 [facility] Comment on above: Performed By: #### C BC #### [facility] [address] [place] [address] Dr. Phill Og MANUAL DIFF REQ NO Normal [facility] Comment on above: Performed By: #### C BC #### [facility] [address] [place] [address] Dr. Phill Og MCH (RBC) [Entitic mass] 28.2 pg Normal 26.7-34.0 [facility] Comment on above: Performed By: #### C BC #### [facility] [address] [place] [address] Dr. Phill Og MCHC (RBC) [Mass/Vol] 30.1 g/dL Normal 29.9-35.2 [facility] Comment on above: Performed By: #### C BC #### [facility] [address] [place] [address] Dr. Phill Og MCV (RBC) [Entitic vol] 93.8 fL Normal 81.0-99.0 [facility] Comment on above: Performed By: #### C BC #### [facility] [address] [address] [address] Phill Og MONO # 0.9 103/ul Critically high 0.3-0.8 [facility] Comment on above: Performed By: #### C BC #### [facility] [address] [address] [address] Phill Og Monocytes/100 WBC (Bld) 7.1 % Normal 1.7-12.0 [facility] Comment on above: Performed By: #### C BC #### [facility] [address] [address] [address] Phill Og NEUT # 8.8 103/ul Critically high 1.4-6.5 [facility] Comment on above: Performed By: #### C BC #### [facility] [address] [place] [address] Dr. Phill Og Neutrophils/100 WBC (Bld) 70.2 % Normal 43.0-75.0 [facility] Comment on above: Performed By: #### C BC #### [facility] [address] [place] [address] Dr. hPill Og Platelet mean volume (Bld) [Entitic vol] 10.5 fL Normal 9.5-13.5 [facility] Comment on above: Performed By: #### C BC #### [facility] [address] [place] [address] Dr. Phill Og PLT 270 103/ul Normal 150-450 [facility] Comment on above: Performed By: #### C BC #### [facility] [address] [place] [address] Dr. Phill Og RBC 4.85 106/ul Normal 4.20-5.40 [facility] Comment on above: Performed By: #### C BC #### [facility] [address] [place] [address]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 77345156 ####[facility] [address] [place] [address] Urea nitrogen mass conc 9 mg/dL Normal 5-21 [facility] Comment on above: Performed By: #### 2 682649, 1253815, 9022245, 5134408, 7316291, 38157621, 33935397 ####[facility] [address] [place] [address] Urea nitrogen/Creatinine mass ratio 11 No Units Normal 10-20 [facility] Comment on above: Performed By: #### 2 050429, 9738396, 0409529, 4402783, 3331095, 73167288, 69084095 ####[facility] [address] [place] [address] Anion gap molar conc 9 mmol/L Normal 6-16 [facility] Comment on above: Performed By: #### 2 228250, 6016640, 2940299, 9328344, 1830852, 00796899, 93057261 ####[facility] [address] [place] [address] Calcium mass conc 8.9 mg/dL Normal 8.9-11.1 [facility] Comment on above: Performed By: #### 2 059197, 1987195, 5018687, 3720469, 5542345, 04326937, 86140195 ####[facility] [address] [place] [address] Chloride molar conc 102 mmol/L Normal 101-111 [facility] Comment on above: Performed By: #### 2 430567, 9480603, 6113883, 1725616, 9303535, 86771861, 32679231 ####[facility] [address] [place] [address] CO2 molar conc 28 mmol/L Normal 21-31 [facility] Comment on above: Performed By: #### 2 190233, 4554181, 0978447, 6177897, 7693923, 71271145, 14601656 ####[facility] [address] [place] [address] Glucose mass conc 109 mg/dL Normal 55-199 [facility] Comment on above: Result Comment: If t his glucose result represents a fasting glucose, interpretation should refer to the following reference range: 55-99 mg/dL Performed By: #### 2 610753, 4383739, 4270839, 6981556, 9181318, 80794622, 43142897 ####[facility] [address] [place] [address] Potassium molar conc 2.9 mmol/L Low 3.5-5.[address] [facility] Comment on above: Performed By: #### 2 102604, 4528372, 1521725, 9943537, 5731977, 69105258, 27719209 ####[facility] [address] [place] [address] Sodium molar conc 136 mmol/L Normal 135-145 [facility] Comment on above: Performed By: #### 2 129246, 1081146, 6021105, 6706748, 7899615, 94267693, 74347692 ####[address] [address] CBC w/ Auto Diffon Erythrocyte distribution width Ratio (RBC) 13.4 % Normal 10.9-14.2 [facility] Comment on above: Performed By: #### 2 337765, 7629609, 2695490, 5142917, 9507409, 29903265, 13785535 ####[address] [place] [address] Hematocrit Volume Fraction (Bld) 41.1 % Normal 34.0-46.0 [facility] Comment on above: Performed By: #### 2 705401, 2967021, 7180785, 6827734, 6690744, 39156643, 42240964 ####[address] [place] [address] Hemoglobin mass conc (Bld) 13.9 g/dL Normal 12.0-16.0 [facility] Comment on above: Performed By: #### 2 292263, 3319491, 9698452, 6965187, 7369087, 49450909, 09245459 ####[address] [place] [address] MCH Entitic mass (RBC) 29.4 pg Normal 27.0-34.0 [facility] Comment on above: Performed By: #### 2 697614, 2411784, 3124534, 4397695, 4962465, 42960304, 68765810 ####[facility] [address] [place] [address] MCHC mass conc (RBC) 33.7 g/dL Normal 31.4-39.3 [facility] Comment on above: Performed By: #### 2 742663, 0668437, 3568336, 2553536, 6998551, 81371440, 47345831 ####[address] [place] [address] MCV Entitic volume (RBC) 87.2 fL Normal 80.0-100.0 [facility] Comment on above: Performed By: #### 2 000813, 2129371, 1333577, 2751197, 2884783, 56067840, 66971536 ####[address] [address] Platelet mean volume Entitic volume (Bld) 8.0 fL Normal 6.4-10.8 [facility] Comment on above: Performed By: #### 2 743225, 1306487, 9066060, 3040632, 4402290, 18012788, 48964262 ####[address] [address] Platelets #/vol (Bld) 270.0 E9/L Normal 150.0-500.0 [facility] Comment on above: Performed By: #### 2 872938, 7655289, 1201033, 5340797, 3107148, 35684979, 95563020 ####[address] [address] RBC #/vol (Bld) 4.7 E12/L Normal 4.3-5.9 [facility] Comment on above: Performed By: #### 2 052315, 8510707, 3678509, 0684727, 3371887, 38041805, 55765047 ####[facility] [address] [place] [address] WBC corrected for nucl RBC Auto #/vol (Bld) 16.1 E9/L High 4.0-11.0 [facility] Comment on above: Result Comment: Slid e reviewed by AC. Performed By: #### 2 373186, 0022393, 3553989, 2176190, 4048913, 55511752, 30363168 ####[facility] [address] [place] [address] ED Clinical Summaryon 2017 ED Clinical Summary [address] [address] ED Clinical Summary Person Information Name: YAEL TALLEY [facility] Age: 18 Years : 2000 12:00 AM Sex: Female Language: Bermudian PCP: Jolynn VILLA MD Marital Status: Single [...] 05/03/2018 9:58 AM 05/03/2018 9:58 AM ADDRESS: [address] [place] [address] [address] [facility] [address] PHYS DOC NOTES: MEDICAL INFORMATION: Prescriptions Given: Prescription Display acetaminophen-hydrocod one (Hamilton 325 mg-5 mg oral tablet) 1 tab(s), [...] Refills(s) 1 PATIENT EDUCATION INFORMATION: Instructions: Cholelithiasis, Zspg-rc-Pomv; Pyelonephritis, Adult, Eukn-td-Ixks Follow up: With: Address: When: Jolynn VILLA [address] [place], [place] [id number] Business (1) Within 3 to 5 days Comments: Call physician if symptoms worsen Return to ED if symptoms worsen DIAGNOSIS: 1:Rt flank pain; 2:Urinary tract infection; 3:Acute pyelonephritis Normal [facility] ED Note-Physicianon 05-03-20 ED Note-Physician Basic Information [...] 400 mg= 1 tab(s), Oral, q6hr, PRN Hamilton 325 mg-5 mg oral tablet, 1 tab(s), Oral, q6hr, PRN Zofran ODT 8 mg Tab-Dis, 8 mg= 1 tab(s), Oral, q8hr, PRN, 1 refills Follow-up With When Contact Information Jolynn VILLA Within 3 to [address] [place], [place] [address] [place] [id number] [facility] (1) Additional Instructions: Call physician if symptoms worsen Return to ED if symptoms worsen Patient Education Cholelithiasis, Mkpn-gd-Zphr Pyelonephritis, Adult, Hyuc-fk-Iofw Problem List/Past Medical History Ongoing Smoker Historical [...] Lymph Auto: 23.2 % (05/03/18 06:07:00 EST) [place] Auto: 8.7 % (05/03/18 06:07:00 EST) Eos Auto: 0.8 % (05/03/18 06:07:00 EST) Basophil Auto: 0.4 % (05/03/18 06:07:00 EST) Neutro Absolute: 10.8 E9/L High (05/03/18 06:07:00 EST) Lymph Absolute: 3.8 E9/L (05/03/18 06:07:00 EST) [place] Absolute: 1.4 E9/L High (05/03/18 06:07:00 EST) [...] Given? No Signed By: Judd Curtis MD [facility] Comment on above: Result Comment: Elec tronically [...] Lymph Auto: 23.2 % (05/03/18 06:07:00 EST) [place] Auto: 8.7 % (05/03/18 06:07:00 EST) Eos Auto: 0.8 % (05/03/18 06:07:00 EST) Basophil Auto: 0.4 % (05/03/18 06:07:00 EST) Neutro Absolute: 10.8 E9/L High (05/03/18 06:07:00 EST) Lymph Absolute: 3.8 E9/L (05/03/18 06:07:00 EST) [place] Absolute: 1.4 E9/L High (05/03/18 06:07:00 EST) [...] Diagnostic Results No qualifying data available. Normal [facility] Comment on above: Result Comment: Elec tronically Signed By: Med DIALLO, Janes\.br\Date and Time Signed: 05/03/18 06:53 EST ED [...] Document Reviewed: 11/07/2013 ExitCare? Patient Information ?2015 [employer]. This information is not intended to replace [...] Document Reviewed: 11/03/2011 ExitCare? Patient Information ?2014 [employer]. This information is not intended to replace advice given to you by your health care provider. Make sure you discuss any questions you have with your health care provider. Normal [facility] ED Patient Summaryon 018 ED Patient Summary [address] [address] Patient Discharge Instructions Person Information Name: YAEL TALLEY Age: 18 Years Arrival Date: 05/03/2018 5:43 AM Discharge Diagnosis: 1:Rt flank pain; 2:Urinary tract infection; 3:Acute pyelonephritis Primary Care Physician: Jolynn VILLA MD Provider Information Primary Provider: Janes Jovel MD Advanced Shoe Repairman:None The exam and treatment you received in the Emergency Department were for an urgent problem and are not intended as complete care. It is important that you follow up with a doctor, nurse practitioner, or physician?s resident assistant cna for ongoing care. If your symptoms become worse or you do not improve as expected and you are unable to reach your usual health care provider, you should return to the Emergency Department. We are available 24 hours a day. YAEL TALLEY has been given the following list of patient education materials, prescriptions and follow-up instructions: Follow-up Instructions: With: Address: When: Jolynn VILLA [address] [place], [place] [address], [place] [address] Business (1) Within 3 to 5 days Comments: Call physician if symptoms worsen Return to ED if symptoms worsen In the event that this physician does not participate in your insurance network, please consult with your insurance company to find a nearby participating provider. Patient Education Materials: Cholelithiasis, Umeb-tg-Dcxy; Pyelonephritis, Adult, Hbgl-cd-Avje A MESSAGE TO ALL PATIENTS REGARDING OPIOIDS PRESCRIPTION OPIOIDS: WHAT YOU NEED TO KNOW Prescription opioids can be used to help relieve ifvdgslg-lq-tajovj pain and are often prescribed following a [...] guidance from the Food and Drug Administration (www.fda.gov/Drugs/Res ourcesForYou). ? Visit www.cdc.gov/drugoverdo se to learn about the risks of opioids abuse and overdose. ? If you believe you may be struggling with addiction, tell your health rental boats caretaker and ask for guidance or call [facility]?S National Helpline at 6-667-885-OOCX. e Source: US Department of Health and Human Services/Center for Disease Control & Prevention [facility] Medications Given: Medication Dose Route morphine 2.00 mg IV Push Right Antecubit [place] ondansetron 4.00 mg IV Push Right Antecubit Addy ceftriaxone 1.00 gram IV Piggyback Right Antecubit Addy Sodium Chloride 0.9% intravenous solution 1000.00 mL Initial Volume 1000.00 mL/hr IV Piggyback Right Antecubit [place] Medication Information: New Medications Printed Prescriptions acetaminophen-hydrocod one (Hamilton 325 mg-5 mg oral tablet) 1 Tabs [...] Information: Re Mustafa Thank you for choosing [facility] Patient Education Materials: Possible Cholelithiasis Follow-up [...] Document Reviewed: 11/07/2013 ExitCare? Patient Information ?2015 [employer]. This information is not intended to replace [...] Document Reviewed: 11/03/2011 ExitCare? Patient Information ?2015 [employer]. This information is not intended to replace advice given to you by your health care provider. Make sure you discuss any questions you have with your health care provider. GERRI Soliz ALEXUS R , have received the following patient education materials/instructions and have verbalized understanding: Patient Education Materials: Cholelithiasis, Tdtb-qp-Jpiw; Pyelonephritis, Adult, Hrfp-ps-Jcla Follow-up Instructions: With: Address: When: Jolynn VILLA [address] [place] [address] [address] [place] [phone] Business (1) Within 3 to 5 days Comments: Call physician if symptoms worsen Return to ED if symptoms worsen Prescriptions: [acetaminophen-hydroco done (Hamilton 325 mg-5 mg oral tablet)] [ciprofloxacin (Cipro 500 mg Tab)] [ibuprofen (ibuprofen 400 mg Tab)] [ondansetron (Zofran ODT 8 mg Tab-Dis)] Patient Signature Date Clinician/Nurse Signature ___ Date 05/03/18 09:58:03 Normal [facility] Hep Func Panelon 05-03-2018 Albumin mass conc 4.3 g/dL Normal 3.3-5.0 [facility] Comment on above: Performed By: #### 2 622632, 0305414, 6906748, 1875540, 6763814, 92193652, 15415536 ####[facility] [address] [place] [address] Albumin mass conc 1.5 g/dL Normal 1.1-2.2 [facility] Comment on above: Performed By: #### 2 520597, 7346804, 5464349, 7734994, 6733193, 33876340, 30981104 ####[facility] [address] [place] [address] ALP enzyme act/vol 61 Int._Unit/L Normal 21-98 [facility] Comment on above: Performed By: #### 2 043998, 9416549, 4336215, 1363155, 6033943, 95615712, 88651952 ####[facility] [address] [place] [address] ALT No additional P-5'-P enzyme act/vol 11 Int._Unit/L Normal 6-46 [facility] Comment on above: Performed By: #### 2 089611, 4053574, 6999271, 0459938, 8304625, 56105815, 64415071 ####[facility] [address] [place] [address] AST enzyme act/vol 14 Int._Unit/L Normal 5-43 [facility] Comment on above: Performed By: #### 2 129377, 0094339, 3380665, 9948560, 8543071, 09833958, 38015691 ####[facility] [address] [place] [address] Bilirubin mass conc 1.1 mg/dL Normal 0.0-1.1 [facility] Comment on above: Performed By: #### 2 265317, 4362460, 3784847, 5810749, 5875213, 85117363, 80774169 ####[facility] [address] [place] [address] Bilirubin.direct mass conc 0.2 mg/dL Normal 0.1-0.4 [facility] Comment on above: Performed By: #### 2 028236, 3846121, 9204260, 2794041, 6239895, 86908127, 35427580 ####[address] [place] [address] Bilirubin.direct mass conc 0.9 mg/dL Normal 0.1-0.9 [facility] Comment on above: Performed By: #### 2 092992, 7081427, 5407499, 9260535, 8006240, 47624581, 50894096 ####[facility] [address] [place] [address] Globulin mass conc (S) 2.9 g/dL Normal 1.4-4.0 [facility] Comment on above: Performed By: #### 2 176224, 1678815, 6313989, 8133939, 8500226, 58375552, 27335838 ####[address] [place] [address] Protein mass conc 7.2 g/dL Normal 6.0-7.8 [facility] Comment on above: Performed By: #### 2 927428, 7950591, 5327968, 8048366, 4222746, 04208413, 08332748 ####[facility] [address] [place] [address] Lactic Acidon 05-03-2018 Lactate mass conc 7.2 mg/dL Normal 4.5-19.8 [facility] Comment on above: Performed By: #### 2 634305 ####[place] [address] Lipase Levelon 05-03-2018 Lipase enzyme act/vol 22 unit/L Normal 13-58 [facility] Comment on above: Performed By: #### 2 852848, 6296015, 9859953, 4239653, 2328509, 97046003, 73442028 ####[facility] [address] [place] [address] UA With Cult Reflexon 2017 Bacteria LM Ql (Urine sed) 2+ /HPF Abnormal Trace [facility] Comment on above: Performed By: #### 1 1688340, 5897697 ####[facility] [address] [place] [address] Bilirubin Ql (U) Negative Normal Negative [facility] Comment on above: Performed By: #### 1 2861561, 7615796 ####[facility] [address] [place] [address] Clarity Nom (U) CLOUDY Abnormal Clear [facility] Comment on above: Performed By: #### 1 3499697, 7735760 ####[facility] [address] [place] [address] Color Nom (U) YELLOW Normal Yellow [facility] Comment on above: Performed By: #### 1 2904301, 2971564 ####[facility] [address] [place] [address] Epithelial cells.squamous LM.HPF #/area (Urine sed) /[HPF] Normal 0-2 [facility] Comment on above: Performed By: #### 1 4213226, 4481647 ####[facility] [address] [place] [address] Glucose Test strip mass conc (U) Negative Normal Negative [facility] Comment on above: Performed By: #### 1 9694870, 5733864 ####[facility] [address] [place] [address] Hemoglobin Ql (U) 2+ Abnormal Negative [facility] Comment on above: Performed By: #### 1 9958118, 5439616 ####[facility] [address] [place] [address] Ketones mass conc (U) Negative Normal Negative [facility] Comment on above: Performed By: #### 1 8846677, 5237015 ####[address] [address] [place].plasma/Lithi um.RBC mass ratio (Bld) 4-20 Normal 0-3 [facility] Comment on above: Performed By: #### 1 6421788, 8344354 ####[address] [address] Nitrite Ql (U) Positive Abnormal Negative [facility] Comment on above: Performed By: #### 1 7321357, 3054236 ####[address] [address] pH (U) 6.0 [pH] 5.0-9.0 [facility] Comment on above: Performed By: #### 1 6811799, 3584508 ####[address] [address] Protein mass conc (U) 1+ Abnormal Negative [facility] Comment on above: Performed By: #### 1 3627141, 8794725 ####[address] [address] Specific gravity Relative Density (U) 1.025 1.005-1.030 [facility] Comment on above: Performed By: #### 1 1085887, 2343282 ####[address] [address] UA Spec Desc Clean Catch Normal [facility] Comment on above: Performed By: #### 1 3368539, 9089332 ####[address] [address] Urobilinogen Qn (U) 0.2 {Carlos'U}/dL Normal 0.0-1.0 [facility] Comment on above: Performed By: #### 1 3496251, 6086325 ####[address] [place] [address] WBC Auto Ql (U) 2+ Abnormal Negative [facility] Comment on above: Performed By: #### 1 7042940, 5804907 ####[facility] [address] [place] [address] WBC LM.HPF #/area (Urine sed) /[HPF] Abnormal 0-5 [facility] Comment on above: Performed By: #### 1 1300753, 8576216 ####[facility] [address] [place] [address] eGFRon 05-03-2018 GFR/1.73 sq M predicted among blacks MDRD vol rate/area (S/P/Bld) mL/min/{1.73_m2} Normal >=59 [facility] Comment on above: Order Comment: Order added by Discern Expert. Result Comment: eGFR is race adjusted. AA=. Performed By: #### 2 084130, 9882362, 6598721, 6404470, 7920781, 94854768, 94596281 ####[facility] [address] [place] [address] GFR/1.73 sq M predicted among non-blacks MDRD vol rate/area (S/P/Bld) mL/min/{1.73_m2} Normal >=59 [facility] Comment on above: Order Comment: Order added by Discern Expert. Result Comment: Information Scientist del kidney disease could be indicated at eGFR's of less than 60 mL/min/1.73m2. Kidney failure is indicated at less than 15 mL/min/1.73m2. Performed By: #### 2 387314, 7387137, 6573862, 9337161, 8222822, 71030276, 66594961 ####[address] [place] [address] Coding Summary.on 03-13-2018 Coding Summary. CODING DATE: 03/13/2018 FINAL [facility] STATUS: Home (Routine DC) PAYOR: Jamil APC [...] Campos Date Saved: 03/13/2018 01:48 pm Normal [facility] Auto Diffon 03-10-2018 Basophils #/vol (Bld) 0.8 % Normal 0.0-2.0 [facility] Comment on above: Order Comment: Order Added by Discern Expert. Performed By: #### 2 839192, 4297889, 5278968, 8969335, 35853578, 0179167, 17890451 ####[facility] [address] [place] [address] Basophils/Leukocytes Auto Pure number fraction (Bld) 0.1 E9/L Normal 0.0-0.2 [facility] Comment on above: Order Comment: Order Added by Discern Expert. Performed By: #### 2 411889, 9151545, 3568123, 2845519, 37098226, 9894488, 69081680 ####[facility] [address] [place] [address] Eosinophils/100 WBC (Bld) 1.5 % Normal 0.0-8.0 [facility] Comment on above: Order Comment: Order Added by Discern Expert. Performed By: #### 2 951254, 4191827, 8612795, 7600650, 38575264, 6083589, 68394240 ####[facility] [address] [place] [address] Eosinophils/Leukocyt es Auto Pure number fraction (Bld) 0.1 E9/L Normal 0.0-0.5 [facility] Comment on above: Order Comment: Order Added by Discern Expert. Performed By: #### 2 407371, 2669031, 0920917, 7247574, 15112342, 4931299, 89061686 ####[address] [place] [address] Lymphocytes/100 WBC (Bld) 26.8 % Normal 14.0-50.0 [facility] Comment on above: Order Comment: Order Added by Discern Expert. Performed By: #### 2 700119, 8090008, 1464778, 5005634, 58330412, 9373145, 33105352 ####[facility] [address] [place] [address] Lymphocytes/Leukocyt es Auto Pure number fraction (Bld) 2.0 E9/L Normal 1.0-4.0 [facility] Comment on above: Order Comment: Order Added by Discern Expert. Performed By: #### 2 468510, 6172838, 0493748, 4474603, 82979099, 1668826, 07458954 ####[address] [place] [address] Monocytes/100 WBC (Bld) 8.4 % Normal 4.0-14.0 [facility] Comment on above: Order Comment: Order Added by [employer] Expert. Performed By: #### 2 971834, 6341288, 2078797, 3251119, 62198267, 7810144, 49339021 ####[address] [place] [address] Monocytes/Leukocytes Auto Pure number fraction (Bld) 0.6 E9/L Normal 0.2-1.0 [facility] Comment on above: Order Comment: Order Added by Discern Expert. Performed By: #### 2 351857, 5443398, 4187454, 9289544, 04466937, 4909043, 42042012 ####[address] [place] [address] Neutrophils/100 WBC (Bld) 62.5 % Normal 36.0-75.0 [facility] Comment on above: Order Comment: Order Added by [employer] Expert. Performed By: #### 2 956838, 1473144, 4679277, 5822726, 55148114, 2169624, 62047226 ####[address] [place] [address] Neutrophils/Leukocyt es Auto Pure number fraction (Bld) 4.8 E9/L Normal 2.0-7.5 [facility] Comment on above: Order Comment: Order Added by Discern Expert. Performed By: #### 2 966203, 3834916, 2630707, 5005149, 42234053, 6410854, 71219600 ####[facility] [address] [place] [address] B hCG Qualon 03-10-2018 HCG.beta subunit Qn Negative Normal [facility] Comment on above: Performed By: #### 2 426314, 6915187, 4547572, 0534279, 79751972, 0969940, 20874684 ####[facility] [address] [place] [address] BMPon 03-10-2018 Creatinine mass conc 0.7 mg/dL Normal 0.5-1.3 [facility] Comment on above: Performed By: #### 2 860693, 3064043, 1685810, 4032701, 42846001, 6984027, 18855991 ####[facility] [address] [place] [address] Urea nitrogen mass conc 13 mg/dL Normal 5-21 [facility] Comment on above: Performed By: #### 2 223006, 6506843, 4617271, 4029525, 98029677, 0751039, 24500326 ####[facility] [address] [place] [address] Urea nitrogen/Creatinine mass ratio 19 No Units Normal 10-20 [facility] Comment on above: Performed By: #### 2 400862, 9026799, 0392047, 1875103, 29977873, 5338728, 61278291 ####[facility] [address] [place] [address] Anion gap molar conc 11 mmol/L Normal 6-16 [facility] Comment on above: Performed By: #### 2 358930, 5880116, 2621574, 2203167, 60993038, 0494449, 94776402 ####[facility] [address] [place] [address] Calcium mass conc 8.9 mg/dL Normal 8.9-11.1 [facility] Comment on above: Performed By: #### 2 982416, 7377779, 2423957, 7251225, 99002744, 5904025, 56944041 ####[facility] [address] [place] [address] Chloride molar conc 107 mmol/L Normal 101-111 [facility] Comment on above: Performed By: #### 2 673668, 8970754, 1178966, 1286933, 70793481, 6962786, 04536357 ####[facility] [address] [place] [address] CO2 molar conc 23 mmol/L Normal 21-31 [facility] Comment on above: Performed By: #### 2 337325, 6965164, 0757787, 8580204, 45687790, 8523114, 57518215 ####[facility] [address] [place] [address] Glucose mass conc 99 mg/dL Normal 55-199 [facility] Comment on above: Result Comment: If t his glucose result represents a fasting glucose, interpretation should refer to the following reference range: 55-99 mg/dL Performed By: #### 2 603631, 6198858, 6427343, 7429738, 06732594, 2806373, 49814912 ####[facility] [address] [place] [address] Potassium molar conc 3.9 mmol/L Normal 3.5-5.3 [facility] Comment on above: Performed By: #### 2 816455, 4104689, 8938454, 4005351, 64610589, 1014043, 65294771 ####[facility] [address] [place] [address] Sodium molar conc 137 mmol/L Normal 135-145 [facility] Comment on above: Performed By: #### 2 145753, 5632434, 9008544, 3412560, 45489075, 2722556, 37801202 ####[facility] [address] [place] [address] CBC w/ Auto Diffon 8 Erythrocyte distribution width Ratio (RBC) 13.4 % Normal 10.9-14.2 [facility] Comment on above: Performed By: #### 2 921729, 6535222, 6319105, 8423176, 11377652, 3121315, 84280541 #### [facility] [address] [place] [address] Hematocrit Volume Fraction (Bld) 38.8 % Normal 34.0-46.0 [facility] Comment on above: Performed By: #### 2 832397, 1005406, 8061453, 6557468, 57062342, 1016576, 80899119 #### [facility] [address] [place] [address] Hemoglobin mass conc (Bld) 13.3 g/dL Normal 12.0-16.0 [facility] Comment on above: Performed By: #### 2 479833, 9367528, 8852726, 2944142, 99747991, 7160748, 61839815 #### [facility] [address] [place] [address] MCH Entitic mass (RBC) 29.5 pg Normal 27.0-34.0 [facility] Comment on above: Performed By: #### 2 689588, 6437022, 0563371, 3540653, 39657814, 2035953, 97629634 #### [facility] [address] [place] [address] MCHC mass conc (RBC) 34.2 g/dL Normal 31.4-39.3 [facility] Comment on above: Performed By: #### 2 530959, 3295095, 2743454, 5549697, 76696522, 6100526, 94774456 #### [facility] [address] [place], [place] [address] MCV Entitic volume (RBC) 86.4 fL Normal 80.0-100.0 [facility] Comment on above: Performed By: #### 2 502988, 6093425, 4856963, 0531293, 89763016, 0974048, 13879008 #### [facility] [address] [place] [address] Platelet mean volume Entitic volume (Bld) 8.2 fL Normal 6.4-10.8 [facility] Comment on above: Performed By: #### 2 619689, 3604293, [id number], 1386435, [id number], 2384431, [id number] #### [facility] [address] [place] [address] Platelets #/vol (Bld) 221.0 E9/L Normal 150.0-500.0 [facility] Comment on above: Performed By: #### 2 063907, 0935430, 0644947, 0196020, 82630707, 8368621, [id number] #### [facility] [address] [place], [place] [address] RBC #/vol (Bld) 4.5 E12/L Normal 4.3-5.9 [facility] Comment on above: Performed By: #### 2 568103, 2677825, 2973953, 1477906, 11073842, 9942915, [id number] #### [facility] [address] [place], [place] [address] WBC corrected for nucl RBC Auto #/vol (Bld) 7.6 E9/L Normal 4.0-11.0 [facility] Comment on above: Performed By: #### 2 819281, 3013243, 5527399, 2219628, 19679722, 1572795, 26771006 #### [facility] [address] [place] [address] ED Clinical Summaryon 2017 ED Clinical Summary [place] [address] ED Clinical Summary Person Information Name: YAEL TALLEY/[place] Age: 17 Years : 2000 12:00 AM Sex: Female Language: Bermudian PCP: Carlie Talley MD Marital Status: Single [...] 03/10/2018 1:26 PM 03/10/2018 1:26 PM ADDRESS: [address] [place] [address] [address] [phone] PHYS DOC NOTES: MEDICAL INFORMATION: Prescriptions Given: Prescription Display omeprazole (omeprazole 40 mg Cap-DR) 40 mg = 1 cap(s), Oral, Daily, X 7 day(s), # 7 cap(s), Refills(s) 0 promethazine (promethazine 25 mg Tab) 25 mg = 1 tab(s), Oral, TID, # 15 tab(s), Refills(s) 0 PATIENT EDUCATION INFORMATION: Instructions: Abdominal Pain, Adult Follow up: With: Address: When: Carlie Talley [address] [place] [address], [place] [address] Business (1) In 3 days 03/13/2018 DIAGNOSIS: Abdominal pain; Nausea & vomiting Normal [facility] ED Note-Physicianon 03-10-20 ED Note-Physician Basic Information Time Seen: Washington Maddox PA-C 03/10/2018 10:42 Chief Complaint was seen in ER twedn. states they gave me meds and i [...] Talley In 3 days 03/13/2018 EDT [address] [place] [phone] Business (1) Additional Instructions: Patient Education Abdominal Pain, Adult Attestation Patient seen and evaluated by the physician resident assistant cna. Attending physician was present in the emergency department and supervised care. This report was transcribed using voice recognition software. Every effort was made to ensure accuracy, however, inadvertently computerized central supply assistant mistakes may be present. Problem List/Past Medical [...] Lymph Auto: 26.8 % (03/10/18 10:55:00 EDT) [place] Auto: 8.4 % (03/10/18 10:55:00 EDT) Eos Auto: 1.5 % (03/10/18 10:55:00 EDT) Basophil Auto: 0.8 % (03/10/18 10:55:00 EDT) Neutro Absolute: 4.8 E9/L (03/10/18 10:55:00 EDT) Lymph Absolute: 2 E9/L (03/10/18 10:55:00 EDT) [place] Absolute: 0.6 E9/L (03/10/18 10:55:00 EDT) Eos [...] right kidney. Signed By: Duke Joyce M.D. [facility] Comment on above: Result Comment: Elec tronically Signed By: Washington Maddox PA-C\.br\Date and Time Signed: 03/10/18 15:36 EDT\.br\Electronically Co-Signed By: Cookie Mahmood DO\.br\Date and Time Co-Signed: 03/10/18 17:38 [...] discomfort you are experiencing: ? Only take qvrv-qon-kpqaxqi or prescription medicines as directed by your [...] Document Reviewed: 01/23/2014 ExitCare? Patient Information ?2015 VideoBurst. This information is not intended to replace advice given to you by your health care provider. Make sure you discuss any questions you have with your health care provider. Normal [facility] ED Patient Summaryon 018 ED Patient Summary [address] [address] Patient Discharge Instructions Person Information Name: YAEL TALLEY Age: 17 Years Arrival Date: 03/10/2018 10:30 AM Discharge Diagnosis: Abdominal pain; Nausea & vomiting Primary Care Physician: Carlie Talley MD Provider Information Primary Provider: Cookie Mahmood DO Advanced Shoe Repairman:Washington Maddox PA-C The exam and treatment you received in the Emergency Department were for an urgent problem and are not intended as complete care. It is important that you follow up with a doctor, nurse practitioner, or physician?s resident assistant cna for ongoing care. If your symptoms become worse or you do not improve as expected and you are unable to reach your usual health care provider, you should return to the Emergency Department. We are available 24 hours a day. GERRIYAEL has been given the following list of patient education materials, prescriptions and follow-up instructions: Follow-up Instructions: With: Address: When: Carlie Talley [address] [place] [address] Business (1) In 3 days 03/13/2018 In the event that this physician does not participate in your insurance network, please consult with your insurance company to find a nearby participating provider. Patient Education Materials: Abdominal Pain, Adult A MESSAGE TO ALL PATIENTS REGARDING OPIOIDS PRESCRIPTION OPIOIDS: WHAT YOU NEED TO KNOW Prescription opioids can be used to help relieve rtxgnpwu-vc-nsqekv pain and are often prescribed following a [...] guidance from the Food and Drug Administration (www.fda.gov/Drugs/Res ourcesForYou). ? Visit www.cdc.gov/drugoverdo se to learn about the risks of opioids abuse and overdose. ? If you believe you may be struggling with addiction, tell your health rental boats caretaker and ask for guidance or call [facility]?S National Helpline at 8-190-498-UWYW. e Source: US Department of Health and Human Services/Center for Disease Control & Prevention [facility] Medications Given: Medication Dose Route Al hydroxide/Mg hydroxide/simethicone 30.00 mL Oral atropine/hyoscyamine/P B/scopolamine 10.00 mL Oral lidocaine topical 10.00 mL [...] Information: Re Mustafa Thank you for choosing [facility] Patient Education Materials: Abdominal Pain Many [...] discomfort you are experiencing: ? Only take dqwf-wkw-akrvehh or prescription medicines as directed by your [...] Document Reviewed: 01/23/2014 ExitCare? Patient Information ?2015 VideoBurst. This information is not intended to replace advice given to you by your health care provider. Make sure you discuss any questions you have with your health care provider. GERRI Soliz ALEXUS R , have received the following patient education materials/instructions and have verbalized understanding: Patient Education Materials: Abdominal Pain, Adult Follow-up Instructions: With: Address: When: Carlie Talley [address] [place] [address], [facility] [place] [phone] Business (1) In 3 days 03/13/2018 Prescriptions: [omeprazole (omeprazole 40 mg Cap-DR)] [promethazine (promethazine 25 mg Tab)] Patient Signature Date Clinician/Nurse Signature ___ Date 03/10/18 13:26:44 Normal [facility] Hep Func Panelon 03-10-2018 Bilirubin.direct mass conc UTC Abnormal 0.1-0.9 [facility] Comment on above: Result Comment: Resu lt verified by Discern Rule. Performed result UTC (Unable to Calculate) was sent as an Alpha code due the inability to calculate a valid numeric value. Performed By: #### 2 199749, 5951179, 9337421, 8432360, 57478932, 7476411, 40131174 ####[facility] [address] [place] [address] Albumin mass conc 1.4 g/dL Normal 1.1-2.2 [facility] Comment on above: Performed By: #### 2 849892, 7873090, 9490428, 7097556, 72902005, 9834526, 05403843 ####[facility] [address] [place] [address] Albumin mass conc 4.2 g/dL Normal 3.3-5.0 [facility] Comment on above: Performed By: #### 2 631262, 1867741, 9588380, 5795073, 38112950, 0361470, 04029800 ####[facility] [address] [place] [address] ALP enzyme act/vol 55 Int._Unit/L Normal 21-98 [facility] Comment on above: Performed By: #### 2 820913, 3229772, 8338473, 0101327, 95468118, 6727446, 95883960 ####[facility] [address] [place] [address] ALT No additional P-5'-P enzyme act/vol 16 Int._Unit/L Normal 6-46 [facility] Comment on above: Performed By: #### 2 771783, 0492996, 0626957, 6083397, 99174038, 9942783, 04504789 ####[facility] [address] [place] [address] AST enzyme act/vol 16 Int._Unit/L Normal 5-43 [facility] Comment on above: Performed By: #### 2 012963, 0675979, 6302307, 0203549, 87620724, 8774899, 15931463 ####[facility] [address] [place] [address] Bilirubin mass conc 0.8 mg/dL Normal 0.0-1.1 [facility] Comment on above: Performed By: #### 2 455653, 7711449, 0708439, 6849114, 59508277, 4685374, 89904361 ####[facility] [address] [place] [address] Bilirubin.direct mass conc mg/dL Normal 0.1-0.4 [facility] Comment on above: Performed By: #### 2 185720, 7514948, 2973815, 7045817, 31751789, 8161341, 54221732 ####[facility] [address] [place] [address] Globulin mass conc (S) 3.0 g/dL Normal 1.4-4.0 [facility] Comment on above: Performed By: #### 2 275519, 5046748, 6557600, 6645262, 24261835, 6832766, 66502833 ####[facility] [address] [place] [address] Protein mass conc 7.2 g/dL Normal 6.0-7.8 [facility] Comment on above: Performed By: #### 2 899681, 3553453, 8330930, 6970523, 44850272, 2234238, 55761495 ####[facility] [address] [place] [address] Lipase Levelon 03-10-2018 Lipase enzyme act/vol 23 unit/L Normal 13-58 [facility] Comment on above: Performed By: #### 2 674257, 8097643, 4177064, 1819143, 67034227, 7043562, 48444330 #### [facility] [address] [place] [address] Progress Note-Nurseon 2017 Protein mass conc Pt A&OX4, RR even an d unlabored, skin w/d/i, NAD. Vitals stable. Discharge instruction given to patient with work/school note and scripts x2, verbalized understanding. Discharged home, ambulatory with steady gait, denied any other needs at this time. Normal [facility] US Gallbladderon 03-10-2018 US Gallbladder Exam Date/Time: [...] M.D. Transcribed by: dejan Technologist: HW Normal [facility] eGFRon 03-10-2018 GFR/1.73 sq M predicted among blacks MDRD vol rate/area (S/P/Bld) mL/min/{1.73_m2} Normal >=59 [facility] Comment on above: Order Comment: Order added by Discern Expert. Result Comment: eGFR is race adjusted. AA=. Performed By: #### 2 387585, 3388136, 7295869, 2907162, 79338499, 8538462, 89984963 ####[facility] [address] [place] [address] GFR/1.73 sq M predicted among non-blacks MDRD vol rate/area (S/P/Bld) mL/min/{1.73_m2} Normal >=59 [facility] Comment on above: Order Comment: Order added by Discern Expert. Result Comment: Information Scientist del kidney disease could be indicated at eGFR's of less than 60 mL/min/1.73m2. Kidney failure is indicated at less than 15 mL/min/1.73m2. Performed By: #### 2 961285, 4933273, 5407992, 5324973, 14827700, 9039505, 18660544 ####[facility] [address] [place] [address] Coding Summary.on 03-09-2018 Coding Summary. CODING DATE: 03/09/2018 FINAL [facility] STATUS: Home (Routine DC) PAYOR: [place] ADMIT DX: REASON FOR VISIT DX: R10.33 [...] Campos Date Saved: 03/09/2018 12:14 pm Normal [facility] ED Clinical Summaryon 2017 ED Clinical Summary [address] [address] ED Clinical Summary Person Information Name: YAEL TALLEY Alicia/[place] Age: 17 Years : 2000 12:00 AM Sex: Female Language: Bermudian PCP: NONE, XXXX Marital Status: Single Phone: [phone] Visit Id: Visit Reason: Back pain; R [...] 03/08/2018 3:40 PM 03/08/2018 3:40 PM ADDRESS: [address] [place] [address] [address] [facility] [phone] PHYS DOC NOTES: MEDICAL INFORMATION: Prescriptions Given: Prescription Display dicyclomine (dicyclomine 20 mg Tab) 20 mg = 1 tab(s), Oral, QID, X 7 day(s), # 28 tab(s), Refills(s) 0 ondansetron (Zofran ODT 4 mg Tab-Dis) 4 mg = 1 tab(s), Oral, q6hr, # 10 tab(s), Refills(s) 0 PATIENT EDUCATION INFORMATION: Instructions: Abdominal Pain, Adult Follow up: With: Address: When: Virgil Diggs [address] [place] [address], [place] [phone] Business (2) In 3 days 03/11/2018 DIAGNOSIS: Abdominal pain Normal [facility] ED Note-Nursingon 03-08-2018 ED Note-Nursing Patient: LILLI TALLEY Age: 17 years Sex: Female : 2000 Associated Diagnoses: None Author: Macy Buenrostro RN Progress Note Relays that she is feeling a little bit better. NATHANIEL an, awaiting plan of care. Normal [facility] ED Note-Nursing Patient: LILLI TALLEY Age: 17 years Sex: Female : 2000 Associated Diagnoses: None Author: Macy Buenrostro RN Progress Note 1500: Reports some nausea after previous med, NATHANIEL an, orders rec'd. Normal [facility] ED Note-Physicianon 03-08-20 ED Note-Physician Basic Information Time Seen: Herberth Hale PA-C 03/08/2018 13:55 Chief Complaint Patient states she [...] the name of Dr. Diggs who is almond cutting machine tender for family medicine and advised the pain [...] Virgil Dontae In 3 days 03/11/[address] [place] [address] [facility] (1) Additional Instructions: Patient Education Abdominal Pain, [...] The case was discussed with: the physician resident assistant cna, Herberth Hale PA-C. Procedures: I directly supervised [...] Diagnostic Results No qualifying data available. Normal [facility] Comment on above: Result Comment: Elec tronically Signed By: Herberth Hale PA-C\.br\Date and Time Signed: 03/08/18 17:34 EDT\.br\Electronically Co-Signed By: Parag Hendrickson M.D.\.br\Date and Time Co-Signed: 03/08/18 19:12 EDT ED [...] discomfort you are experiencing: ? Only take aeyc-weg-gaepvgk or prescription medicines as directed by your [...] Document Reviewed: 01/23/2014 ExitCare? Patient Information ?2015 VideoBurst. This information is not intended to replace advice given to you by your health care provider. Make sure you discuss any questions you have with your health care provider. Normal [facility] ED Patient Summaryon 018 ED Patient Summary [address] [address] Patient Discharge Instructions Person Information Name: YAEL TALLEY Age: 17 Years Arrival Date: 03/08/2018 1:44 PM Discharge Diagnosis: Abdominal pain Primary Care Physician: NONE, XXXX Provider Information Primary Provider: Parag Hendrickson M.D. Advanced Shoe Repairman:Herberth Hale PA-C The exam and treatment you received in the Emergency Department were for an urgent problem and are not intended as complete care. It is important that you follow up with a doctor, nurse practitioner, or physician?s resident assistant cna for ongoing care. If your symptoms become worse or you do not improve as expected and you are unable to reach your usual health care provider, you should return to the Emergency Department. We are available 24 hours a day. YAEL TALLEY has been given the following list of patient education materials, prescriptions and follow-up instructions: Follow-up Instructions: With: Address: When: Virgil Diggs [address] [place] [address], [facility], [place] [address] Business (1) In 3 days 03/11/2018 In the event that this physician does not participate in your insurance network, please consult with your insurance company to find a nearby participating provider. Patient Education Materials: Abdominal Pain, Adult A MESSAGE TO ALL PATIENTS REGARDING OPIOIDS PRESCRIPTION OPIOIDS: WHAT YOU NEED TO KNOW Prescription opioids can be used to help relieve rxgvfokg-vp-szieek pain and are often prescribed following a [...] guidance from the Food and Drug Administration (www.fda.gov/Drugs/Res nahunForYou). ? Visit www.cdc.gov/drugoverdo se to learn about the risks of opioids abuse and overdose. ? If you believe you may be struggling with addiction, tell your health rental boats caretaker and ask for guidance or call [facility]?S National Helpline at 0-179-844-XIEL. a Source: US Department of Health and Human Services/Center for Disease Control & Prevention [facility] Medications Given: Medication Dose Route [...] as directed on package labeling. Refills: 0. brompheniramine/dextro methorphan/PSE (Bromfed DM oral syrup) 5 Milliliter By [...] Comment: Pharmacy Information: Thank you for choosing [facility] Patient Education Materials: Abdominal Pain Many [...] discomfort you are experiencing: ? Only take bjhb-erk-svocoxe or prescription medicines as directed by your [...] Document Reviewed: 01/23/2014 ExitCare? Patient Information ?2015 VideoBurst. This information is not intended to replace advice given to you by your health care provider. Make sure you discuss any questions you have with your health care provider. GERRI Soliz ALEXUS R , have received the following patient education materials/instructions and have verbalized understanding: Patient Education Materials: Abdominal Pain, Adult Follow-up Instructions: With: Address: When: Virgil Diggs [address] [place] [address], [facility], [place] [address] [facility] (1) In 3 days 03/11/2018 Prescriptions: [dicyclomine (dicyclomine 20 mg Tab)] [ondansetron (Zofran ODT 4 mg Tab-Dis)] Patient Signature Date Clinician/Nurse Signature ___ Date 03/08/18 15:40:08 Normal [facility] UA With Cult Reflexon 2017 Bilirubin Ql (U) Negative Normal Negative [facility] Comment on above: Performed By: #### 1 [id number] #### [facility] [address] [place] [address] Clarity Nom (U) CLOUDY Abnormal Clear [facility] Comment on above: Performed By: #### 1 [id number] #### [facility] [address] [place] [address] Color Nom (U) YELLOW Normal Yellow [facility] Comment on above: Performed By: #### 1 [id number] #### [facility] [address] [place] [address] Crystals LM Ql (Urine sed) Present Normal [facility] Comment on above: Performed By: #### 1 0700539 #### [facility] [address] [place] [address] Epithelial cells.squamous LM.HPF #/area (Urine sed) 5-8 Normal 0-2 [facility] Comment on above: Performed By: #### 1 0248201 #### [facility] [address] [place] [address] Glucose Test strip mass conc (U) Negative Normal Negative [facility] Comment on above: Performed By: #### 1 5069170 #### [facility] [address] [place] [address] Hemoglobin Ql (U) Negative Normal Negative [facility] Comment on above: Performed By: #### 1 5578175 #### [facility] [address] [place] [address] Ketones mass conc (U) Negative Normal Negative [facility] Comment on above: Performed By: #### 1 8959129 #### [facility] [address] [place] [address] [place].plasma/Lithi um.RBC mass ratio (Bld) 0-3 Normal 0-3 [facility] Comment on above: Performed By: #### 1 7138107 #### [facility] [address] [place] [address] Mucus Ql (Urine sed) TRACE Normal [facility] Comment on above: Performed By: #### 1 [id number] #### [facility] [address] [place] [address] Nitrite Ql (U) Negative Normal Negative [facility] Comment on above: Performed By: #### 1 5716615 #### [facility] [address] [place] [address] pH (U) 7.0 [pH] 5.0-9.0 [facility] Comment on above: Performed By: #### 1 7377593 #### [facility] [address] [place] [address] Protein mass conc (U) Negative Normal Negative [facility] Comment on above: Performed By: #### 1 9420413 #### [facility] [address] [place] [address] Specific gravity Relative Density (U) 1.020 1.005-1.030 [facility] Comment on above: Performed By: #### 1 7706514 #### [facility] [address] [place] [address] UA Spec Desc Clean Catch Normal [facility] Comment on above: Performed By: #### 1 3171356 #### [facility] [address] [place] [address] Urobilinogen Qn (U) 0.2 {Carlos'U}/dL Normal 0.0-1.0 [facility] Comment on above: Performed By: #### 1 2661264 #### [facility] [address] [place] [address] WBC Auto Ql (U) Negative Normal Negative [facility] Comment on above: Performed By: #### 1 0459735 #### [facility] [address] [place] [address] WBC LM.HPF #/area (Urine sed) 0-5 Normal 0-5 [facility] Comment on above: Performed By: #### 1 [id number] #### [facility] [address] [place] [address] ED Noteon 08-01-2017 HIM IP Note OR Compliance Aide Normal [facility] ED Provider Noteon 8 HIM IP Note OR Compliance Aide Normal [facility] H Pylori Breath Teston 06-26 H Pylori Breath Test Negative Normal Negative [facility] Comment on above: Result Comment: (NOT [...] spiral organisms such as Helicobacter heilmanii.Performed by [facility],[address] [place] [address] xyp.Memamp, Yan Pringle MD, Lab. DirectorPerformed at [facility] [address] [place] [address] [phone] Performed By: #### C DP, CP, LIP ####[place] [address] [place] [address]([phone] XR ABDOMEN LIMITED (KUB)on 0 06-24-2017 XR ABDOMEN LIMITED (KUB) KUB 2 filmsHISTORY: Calcium oxalate crystals in the urine. Right flank pain with percussion. Acute cystitis with hematuria, flank pain.No comparisonFINDINGS: Moderate stool throughout the colon with no renal ureteral or bladder calculi.IMPRESSION: Normal KUB.Interpreted by:MARYAN Flores Jr.igned by:Alex Gomez Jr., MD06/24/17inal result Normal [facility] Cult,Urineon 06-22-2017 Cult,Urine Specimen Description .URINE, MIDSTREAM Performed at [facility] [address] [place] [address] ([phone] Special Requests NOT REPORTEDCulture NO SIGNIFICANT GROWTH Performed at [address] [address] Report Status FINAL 06/22/2017 Normal [facility] Comment on above: Performed By: #### U RC ####[address] [address] [facility] [place] [address]([phone] CBC with Diffon 06-21-2017 Abs. Basophil 0.00 k/uL Normal 0.0-0.2 [facility] Comment on above: Result Comment: Perf ormed at [facility] [address] [place] [address] ([phone] Performed By: #### C DP, CP, LIP ####[place] [address] [place] [address] Abs.Neutrophil (Seg) 13.50 k/uL High 2.5-7.0 [facility] Comment on above: Performed By: #### C DP, CP, LIP ####[facility] [place] [address] Auto Diff Performed YES Normal [facility] Comment on above: Performed By: #### C DP, CP, LIP ####[facility] [place] [address] Basophils/100 WBC Auto (Bld) 0 % Normal 0-2 [facility] Comment on above: Performed By: #### C DP, CP, LIP ####[facility] [place] [address] Eosinophils 0.20 10*3/uL Normal 0.0-0.4 [facility] Comment on above: Performed By: #### C DP, CP, LIP ####[facility] [place] [address] Eosinophils/100 leukocytes 1 % Normal 0-5 [facility] Comment on above: Performed By: #### C DP, CP, LIP ####[facility] [place] [address] Erythrocyte distribution width Auto Ratio (RBC) 13.7 % Normal 12.1-15.2 [facility] Comment on above: Performed By: #### C DP, CP, LIP ####[facility] [place] [address] Erythrocytes (RBC) 5.00 10*6/uL Normal 4.0-5.2 [facility] Comment on above: Performed By: #### C DP, CP, LIP ####[facility] [facility] [place] [address] Hematocrit (HCT) 42.4 % Normal 36-46 [facility] Comment on above: Performed By: #### C DP, CP, LIP ####[facility] [place] [address] Hemoglobin mass conc (Bld) 14.4 g/dL Normal 12.0-16.0 [facility] Comment on above: Performed By: #### C DP, CP, LIP ####[facility] [place] [address] Lymphocytes 1.40 10*3/uL Normal 1.2-5.2 [facility] Comment on above: Performed By: #### C DP, CP, LIP ####[place] [address] [place] [address] Lymphocytes/100 leukocytes 9 % Low 15-40 [facility] Comment on above: Performed By: #### C DP, CP, LIP ####[place] [address] [place] [address] MCH 28.7 pg Normal 25-35 [facility] Comment on above: Performed By: #### C DP, CP, LIP ####[place] [address] [place] [address] MCHC mass conc (RBC) 33.9 g/dL Normal 31-37 [facility] Comment on above: Performed By: #### C DP, CP, LIP ####[facility] [place] [address] MCV 84.8 fL Normal 78-102 [facility] Comment on above: Performed By: #### C DP, CP, LIP ####[place] [address] [place] [address] Monocytes 1.00 10*3/uL Normal 0.0-1.0 [facility] Comment on above: Performed By: #### C DP, CP, LIP ####[place] [address] [place] [address] Monocytes/100 leukocytes 6 % Normal 4-8 [facility] Comment on above: Performed By: #### C DP, CP, LIP ####[facility] [place] [address] Neutrophil (Seg) 84 % High 47-75 [facility] Comment on above: Performed By: #### C DP, CP, LIP ####[facility] [place] [address] Platelets 226 10*3/uL Normal 140-450 [facility] Comment on above: Performed By: #### C DP, CP, LIP ####[facility] [place] [address] WBC (Leukocytes) 16.1 10*3/uL High 4.5-13.5 [facility] Comment on above: Performed By: #### C DP, CP, LIP ####[facility] [place] [address] Erythrocyte morphology NOT REPORTED Normal [facility] Comment on above: Performed By: #### C DP, CP, LIP ####[facility] [place] [address] Erythrocytes (RBC) NOT REPORTED Normal [facility] Comment on above: Performed By: #### C DP, CP, LIP ####[facility] [facility] [place] [address] Granulocytes/100 WBC (Bld) NOT REPORTED Normal 0.00-0.30 [facility] Comment on above: Performed By: #### C DP, CP, LIP ####[facility] [place] [address] Immature granulocytes #/vol (Bld) NOT REPORTED Normal 0 [facility] Comment on above: Performed By: #### C DP, CP, LIP ####[facility] [place] [address] Platelet mean volume (PMV) NOT REPORTED Normal 6.0-12.0 [facility] Comment on above: Performed By: #### C DP, CP, LIP ####[facility] [place] [address] Platelets NOT REPORTED Normal [facility] Comment on above: Performed By: #### C DP, CP, LIP ####[facility] [place] [address] WBC Morphology NOT REPORTED Normal [facility] Comment on above: Performed By: #### C DP, CP, LIP ####[place] [address] [place] [address] Comp Metabolic Profon 2017 (cont.) Normal [facility] Comment on above: Result Comment: Aver age GFR for <20 years old not available.Chronic Kidney Disease: <60 mL/min/1.73sq mKidney failure: <15 mL/min/1.73sq meGFR calculated using average adult body mass. Additional eGFR calculator available at:http://[email or web address].Prosetta/multiple_crcl_2012.htmPerformed at [facility] [address] [place] [address] Performed By: #### C DP, CP, LIP ####[facility] [place] [address] Alanine aminotransferase (ALT) 12 U/L Normal 5-33 [facility] Comment on above: Performed By: #### C DP, CP, LIP ####[facility] [place] [address] Albumin 4.0 g/dL Normal 3.5-5.2 [facility] Comment on above: Performed By: #### C DP, CP, LIP ####[facility] [place] [address] Alkaline Phos 70 U/L Normal 35-104 [facility] Comment on above: Performed By: #### C DP, CP, LIP ####[facility] [facility] [place] [address] Anion gap 14 mmol/L Normal 8-16 [facility] Comment on above: Performed By: #### C DP, CP, LIP ####[address] [place] [address] Aspartate aminotransferase (AST) 10 U/L Normal <32 [facility] Comment on above: Performed By: #### C DP, CP, LIP ####[address] [place] [address] Bilirubin Ql (U) 0.62 mg/dL Normal 0.3-1.2 [facility] Comment on above: Performed By: #### C DP, CP, LIP ####[address] [place] [address] BUN/CRE Ratio 16 Normal 9-20 [facility] Comment on above: Performed By: #### C DP, CP, LIP ####[address] [place] [address] Calcium 9.0 mg/dL Normal 8.6-10.4 [facility] Comment on above: Performed By: #### C DP, CP, LIP ####[place] [address] [facility] [place] [address] Chloride 107 mmol/L Normal 98-107 [facility] Comment on above: Performed By: #### C DP, CP, LIP ####[place] [address] [place] [address] CO2 23 mmol/L Normal 20-31 [facility] Comment on above: Performed By: #### C DP, CP, LIP ####[facility] [place] [address] Creatinine 0.61 mg/dL Normal 0.50-0.90 [facility] Comment on above: Performed By: #### C DP, CP, LIP ####[place] [address] [place] [address] eGFR (non-black) Pediatric GFR requir es additional information. Refer to NKDEP website for Normal >60 [facility] Comment on above: Result Comment: calc ulator. Performed By: #### C DP, CP, LIP ####[place] [address] [place] [address] Glucose mass conc 105 mg/dL High 70-99 [facility] Comment on above: Performed By: #### C DP, CP, LIP ####[address] [place] [address] Potassium molar conc 3.5 mmol/L Low 3.7-5.3 [facility] Comment on above: Performed By: #### C DP, CP, LIP ####[place] [address] [place] [address] Protein 6.5 g/dL Normal 6.4-8.3 [facility] Comment on above: Performed By: #### C DP, CP, LIP ####[place] [address] [place] [address] Sodium 144 mmol/L Normal 135-144 [facility] Comment on above: Performed By: #### C DP, CP, LIP ####[place] [address] [place] [address] Urea nitrogen 10 mg/dL Normal 6-20 [facility] Comment on above: Performed By: #### C DP, CP, LIP ####[place] [address] [facility] [place] [address] Albumin/Globulin Ratio NOT REPORTED Normal 1.0-2.5 [facility] Comment on above: Performed By: #### C DP, CP, LIP ####[facility] [phone] eGFR (non-black) NOT REPORTED Normal >60 [facility] Comment on above: Performed By: #### C DP, CP, LIP ####[place] [address] [phone] Staging: NOT REPORTED Normal [facility] Comment on above: Performed By: #### C DP, CP, LIP ####[place] [address] [place] [address] ED Noteon 06-21-2017 HIM IP Note OR Compliance Aide Normal [facility] ED Provider Noteon 8 HIM IP Note OR Compliance Aide Normal [facility] HCG, ,Urineon 06-21 HCG.beta subunit ( test) Ql (U) Negative Normal NEG [facility] Comment on above: Result Comment: Perf ormed at [facility] [address] [place] [address] ([phone] Performed By: #### U HCG, UA, UMICAO ####[place] [address] [place] [address] Lipaseon 06-21-2017 Lipase 22 U/L Normal 13-60 [facility] Comment on above: Result Comment: Perf ormed at [facility] [address] [place] [address] ([phone] Performed By: #### C DP, CP, LIP ####[facility] [place] [address] Urinalysis, Routineon 2017 Acetaminophen mass conc Negative Normal NEG [facility] Comment on above: Performed By: #### U HCG, UA, UMICAO ####[place] [address] [facility] [place] [address] Bilirubin (direct) Negative Normal NEG [facility] Comment on above: Performed By: #### U HCG, UA, UMICAO ####[facility] [facility] [place] [address] Comment Normal [facility] Comment on above: Result Comment: Perf ormed at [facility] [address] [facility] [place] [address] Performed By: #### U HCG, UA, UMICAO ####[place] [address] [facility] [place] [address] Hemoglobin mass conc (Bld) 2+ Abnormal NEG [facility] Comment on above: Performed By: #### U HCG, UA, UMICAO ####[address] [place] [address] Nitrite,Ur Negative Normal NEG [facility] Comment on above: Performed By: #### U HCG, UA, UMICAO ####[place] [address] [facility] [place] [address] Turbidity HAZY Abnormal CLEAR [facility] Comment on above: Performed By: #### U HCG, UA, UMICAO ####[place] [address] [facility] [place] [address] Urine, color YELLOW Normal YEL [facility] Comment on above: Performed By: #### U HCG, UA, UMICAO ####[place] [address] [facility] [place] [address] Urine, glucose presence Negative Normal NEG [facility] Comment on above: Performed By: #### U HCG, UA, UMICAO ####[place] [address] [facility] [place] [address] Urine, leukocyte esterase presence 3+ Abnormal NEG [facility] Comment on above: Performed By: #### U HCG, UA, UMICAO ####[facility] [facility] [place] [address] Urine, pH 5.0 [pH] Normal 5.0-8.0 [facility] Comment on above: Performed By: #### U HCG, UA, UMICAO ####[facility] [place] [address] Urine, protein presence TRACE Abnormal NEG [facility] Comment on above: Performed By: #### U HCG, UA, UMICAO ####[facility] [facility] [place] [address] Urine, specific gravity 1.025 Normal 1.005-1.030 [facility] Comment on above: Performed By: #### U HCG, UA, UMICAO ####[place] [address] [facility] [place] [address] Urobilinogen,Ur Normal Normal NORM [facility] Comment on above: Performed By: #### U HCG, UA, UMICAO ####[place] [address] [facility] [place] [address] Urinalysis,Microon 8 ----- Normal [facility] Comment on above: Performed By: #### U HCG, UA, UMICAO ####[place] [address] [facility] [place] [address] Mucus Strands 2+ Abnormal NONE [facility] Comment on above: Result Comment: Perf ormed at [facility] [address] [place] [address] Performed By: #### U HCG, UA, UMICAO ####[place] [address] [facility] [place] [address] Urine WBC's 20 TO 50 Normal 0 [facility] Comment on above: Performed By: #### U HCG, UA, UMICAO ####[facility] [place] [address] Urine, bacteria in sediment 2+ Abnormal NONE [facility] Comment on above: Performed By: #### U HCG, UA, UMICAO ####[facility] [place] [address] Urine, crystals in sediment 1+ /HPF Abnormal NONE [facility] Comment on above: Result Comment: CALC IUM OXALATE Performed By: #### U HCG, UA, UMICAO ####[facility] [place] [address] Urine, epithelial cells in sediment 2 TO 5 Normal [facility] Comment on above: Performed By: #### U HCG, UA, UMICAO ####[place] [address] [place] [address] Urine, erythrocytes 0 TO 2 Normal 0-2 [facility] Comment on above: Performed By: #### U HCG, UA, UMICAO ####[facility] [place] [address] Epithelial, Renal NOT REPORTED Normal 0 [facility] Comment on above: Performed By: #### U HCG, UA, UMICAO ####[facility] [place] [address] Other Observations NOT REPORTED Normal NREQ [facility] Comment on above: Performed By: #### U HCG, UA, UMICAO ####[facility] [place] [address] Trichomonas NOT REPORTED Normal NONE [facility] Comment on above: Performed By: #### U HCG, UA, UMICAO ####[facility] [place] [address] Urine, amorphous sediment presence in sediment NOT REPORTED Normal NONE [facility] Comment on above: Performed By: #### U HCG, UA, UMICAO ####[facility], [place] [id number] Urine, casts in sediment NOT REPORTED Normal [facility] Comment on above: Performed By: #### U HCG, UA, UMICAO ####[facility] [place] [address] Urine, yeast presence in sediment NOT REPORTED Normal NONE [facility] Comment on above: Performed By: #### U HCG, UA, UMICAO ####[facility] [place] [address] Vital Signs Date Time Vital Sign Value Performing Clinician Facility 01-16-2024 09:56-0400 Body height 162.6 cm Norma Oviedoberg PA-C Work Phone: [facility] 01-16-2024 09:56-0400 Body mass index (BMI) [Ratio] 31.07 kg/m2 Norma Oviedoberg PA-tweetTV Work Phone: [facility] 01-16-2024 09:56-0400 Body weight 82.1 kg Norma Nicholas PA-C Work Phone: [facility] 12-29-2023 11:29-0400 Body height 162.6 cm [facility] Comment on above: patient reported 12-29-2023 11:29-0400 Body mass index (BMI) [Ratio] 30.04 kg/m2 [facility] 12-29-2023 11:29-0400 Body weight 79.38 kg [facility] Comment on above: patient reported 12-29-2023 11:29-0400 Heart rate 64 /min [facility] Comment on above: patient counted 12-22-2023 12:00-0400 Body mass index (BMI) [Ratio] 30.65 kg/m2 Tete Multani MD Work Phone: [facility] 12-22-2023 12:00-0400 Body temperature 98.01 [degF] Tete Multani MD Work Phone: [facility] 12-22-2023 12:00-0400 Body weight 81 kg Tete Multani MD Work Phone: [facility] 12-22-2023 12:00-0400 Diastolic blood pressure 77 mm[Hg] Tete Multani MD Work Phone: [facility] 12-22-2023 12:00-0400 Heart rate 85 /min Tete Multani MD Work Phone: [facility] 12-22-2023 12:00-0400 Respiratory rate 18 /min Tete Multani MD Work Phone: [facility] 12-22-2023 12:00-0400 SaO2% (BldA) [Mass fraction] 100 % Tete Multani MD Work Phone: [facility] Comment on above: RA 12-22-2023 12:00-0400 Systolic blood pressure 127 mm[Hg] Tete Multani MD Work Phone: [facility] 11-08-2023 13:25-0400 Body height 162.6 cm Tete Multani MD Work Phone: [facility] 11-08-2023 13:25-0400 Body mass index (BMI) [Ratio] 29.18 kg/m2 Tete Multani MD Work Phone: [facility] 11-08-2023 13:25-0400 Body weight 77.11 kg Tete Multani MD Work Phone: [facility] 11-03-2023 23:00-0400 Diastolic blood pressure 84 mm[Hg] Shauna Patel DO Work Phone: [facility] 11-03-2023 23:00-0400 Heart rate 73 /min Shauna Patel DO Work Phone: [facility] 11-03-2023 23:00-0400 Respiratory rate 18 /min Shauna Patel DO Work Phone: [facility] 11-03-2023 23:00-0400 SaO2% (BldA) [Mass fraction] 94 % Shauna Patel DO Work Phone: [facility] 11-03-2023 23:00-0400 Systolic blood pressure 116 mm[Hg] Shauna Patel DO Work Phone: [facility] 11-03-2023 20:20-0400 Body height 162.6 cm Shauna Patel DO Work Phone: [facility] 11-03-2023 20:20-0400 Body mass index (BMI) [Ratio] 28.32 kg/m2 Shauna Patel DO Work Phone: [facility] 11-03-2023 20:20-0400 Body temperature 98.91 [degF] Shauna Patel DO Work Phone: [facility] 11-03-2023 20:20-0400 Body weight 74.84 kg Shauna Patel DO Work Phone: [facility] 09-13-2023 12:22-0400 Body height 162.6 cm Narda Faria MD Work Phone: [facility] 09-13-2023 12:22-0400 Body weight 77.11 kg Narda Faria MD Work Phone: [facility] 09-17-2022 04:06-0400 Body weight 84.[address] DESHAWN ROSE . [facility] Comment on above: Performed By: #### CT/NGNA #### [facility] [address] [place] [address] Dr. Phill Og Encounters Encounter Date Encounter Type Care Provider Facility Start: 01-16-2024 End: 01-16-2024 ambulatory NORMA NICHOLAS Facility:[facility] Start: 01-16-2024 End: 01-16-2024 Patient encounter procedure Norma Nicholas PA-C Work Phone: [facility] Comment on above: Mass of lower outer quadrant of right breast (Primary Dx) Start: 12-30-2023 End: 12-30-2023 ambulatory TETE MULTANI Facility:[facility] Start: 12-30-2023 Encounter for other preprocedural examination [facility] Start: 12-29-2023 End: 12-29-2023 Admission to [facility]est[facility] Start: 12-29-2023 End: 12-29-2023 ambulatory TETE MULTANI Facility:[facility] Start: 12-29-2023 End: 12-29-[address] [facility] Comment on above: Preop examination (P rimary Dx); History of syncope; Mild intermittent asthma without complication; Obesity, Class I, BMI 30-34.9; Anxiety and depression Start: 12-29-2023 End: 12-29-2023 Preprocedural examination done [facility] Work Phone: Start: 12-23-2023 Orders Only Tete hawk MD Work Phone: [facility] Comment on above: Mass of right breast , unspecified quadrant (Primary Dx); Pre-op testing Start: 12-23-2023 Patient encounter status Tete Multani MD Work Phone: [facility] Start: 12-22-2023 End: 12-22-2023 ambulatory TETE MULTANI Facility:[facility] Start: 12-22-2023 End: 12-22-2023 Patient encounter procedure Tete Multani MD Work Phone: [facility] Comment on above: Mass of lower outer quadrant of right breast (Primary Dx); Obesity, Class I, BMI 30-34.9 Start: 11-08-2023 End: 11-08-2023 Patient encounter procedure Tete Multani MD Work Phone: [facility] Comment on above: Mass of lower outer quadrant of right breast (Primary Dx); Abscess of right breast Abscess of right william ast (Primary Dx) Start: 11-08-2023 End: 11-08-2023 ambulatory TETE MULTANI Facility:[facility] Start: 11-04-2023 Telephone encounter Reta hernandez NEUROLOGIST Work Phone: [facility] Start: 11-03-2023 End: 11-03-2023 Emergency department patient visit Shauna Patel DO Work Phone: [facility] Comment on above: Cellulitis of right breast (Primary Dx) Start: 11-02-2023 End: 11-02-2023 Orders Only Katie Saeed RN Work Phone: [facility] Comment on above: Breast abscess (Prim otilia Dx) Breast abscess [N61. 1] Start: 11-02-2023 End: 11-02-2023 Office outpatient visit 15 minutes Narda Faria MD Work Phone: [facility] Comment on above: Mass of right breast , unspecified quadrant (Primary Dx) Start: 10-13-2023 Telephone encounter Donna Gracia RN Work Phone: Mammography Comment on above: Results Start: 10-11-2023 End: 10-11-2023 ambulatory YOLANDA ANGELA Facility:[facility] Start: 10-11-2023 End: 10-11-2023 Subsequent hospital visit by physician Procedure [facility] Comment on above: Breast disorder [N64 .9] Start: 09-13-2023 End: 09-13-2023 ambulatory Yolanda Angela MD Work Phone: Mammography Comment on above: Breast Problem Start: 09-13-2023 Patient encounter procedure Yolanda Angela MD Work Phone: [facility] Start: 09-13-2023 End: 09-13-2023 Office outpatient visit 25 minutes Narda Faria MD Work Phone: 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] Start: 06-14-2023 End: 06-14-2023 ambulatory NARDA FARIA Facility:[facility] Start: 06-14-2023 ambulatory JONNATHAN PELAYO Facility :[facility] Start: 05-17-2023 End: 05-17-2023 Orders Only Katie Saeed RN Work Phone: [facility] Comment on above: Mass of lower outer quadrant of right breast (Primary Dx) Start: 05-11-2023 Orders Only Katie grande RN Work Phone: [facility] Start: 05-10-2023 Orders Only Katie grande RN Work Phone: [facility] Comment on above: Mass of right breast , unspecified quadrant (Primary Dx) Start: 05-02-2023 End: 05-02-2023 ambulatory DESHAWN ROSE Not Available Start: 02-09-2023 End: 02-09-2023 ambulatory Deshawn Rose Facility:[facility] Start: 02-09-2023 End: 02-09-2023 ambulatory Deshawn Rose Work Phone: [facility] Work Phone: Start: 02-09-2023 End: 02-09-2023 Departed Referred Deshawn Rose Work Phone: [facility] [place] Work Phone: Start: 09-27-2022 End: 09-28-[address] DESHAWN ROSE . Facility:[facility] Start: 09-15-2022 End: 09-16-[address] DESHAWN ROSE . Facility:[facility] Start: 08-27-[address] DESHAWN ROSE . Facili ty:[facility] Start: 08-18-2022 End: 08-18-[address] DESHAWN ROSE . Facility:[facility] Start: 06-24-2022 End: 06-25-[address] DESHAWN ROSE . Facility:[facility] Start: 06-24-2022 End: 06-25-[address] DESHAWN ROSE . Facility:[facility] Start: 06-10-2022 End: 06-11-[address] DESHAWN ROSE . Facility: Start: 04-19-2022 End: 04-19-[address] DESHAWN ROSE . Facility: Start: 02-06-2020 Patient encounter procedure Avirup Cuco FB-Jvyyimzkey-Uikylto [address] [place] Work Phone: Start: 01-29-2020 Patient encounter procedure Avirup Cuco RH-Lltdicxbfm-Oqbcovx [address] [place] Work Phone: Start: 01-21-2020 Patient encounter procedure Avirup Cuco IP-Trcxgcokju-Ryphlsi [address] [place] Work Phone: Start: 01-18-2020 Patient encounter procedure Avirup Cuco FN-Mbeemjfwmq-Phuvakm [address] [place] Work Phone: Start: 05-09-2018 End: 05-10-2018 Patient encounter procedure Jolynn Orgas Facility:[facility] Start: 05-03-2018 End: 05-03-2018 Emergency department patient visit Digna Antonio Shorty Facility:[facility] Start: 03-10-2018 End: 03-10-2018 Emergency department patient visit Cookie Mahmood Facility:[facility] Start: 03-08-2018 End: 03-08-2018 Emergency department patient visit Ashleypollo Hernandez Madhavi Facility:[facility] Start: 08-01-2017 End: 08-01-2017 Emergency department patient [facility] Kathrine [facility] Start: 06-24-2017 End: 06-25-2017 [facility] Start: 06-24-2017 End: 06-24-2017 Ambulatory [facility] Kathrine [facility] Start: 06-21-2017 End: 06-21-2017 Emergency department patient visit JONNATHAN Calloway [facility] Procedures Date Procedure Procedure Detail Performing Clinician Start: 11-03-2023 EXTRA TUBES Shauna W Swi ft DO Work Phone: Start: 11-03-2023 GREEN TOP Shauna W Swi ft DO Work Phone: Start: 11-03-2023 LAVENDER TOP Shauna W Swi ft DO Work Phone: Start: 11-03-2023 Comprehensive metabolic panel Shauna W Patel DO Work Phone: Start: 11-02-2023 Us breast uni real t john with image limited Narda Faria MD Work Phone: Start: 10-11-2023 Bx breast w/device 1 st lesion ultrasound guid Yolanda Angela MD Work Phone: Start: 09-13-2023 Us breast uni real t john with image limited Narda Faria MD Work Phone: Start: 02-13-2020 Follow-up visit Start: 01-29-2020 Echocardiography [...] PE Extraction of wisdom tooth A virup Cuco Plan of Treatment Date Care Activity Detail Author Start: 2049 Zoster Vaccines (1 o f 2) Zoster Vaccines (1 of 2) [facility] Start: 08-02-2027 DTaP/Tdap/Td Vaccine s (8 - Td or Tdap) DTaP/Tdap/Td Vaccines (8 - Td or Tdap) [facility] Start: 08-02-2027 Urine microalbumin profile DTaP,Tdap,Td Vaccine (8 - Td or Tdap) [facility] Start: 04-20-2024 End: 04-20-2024 Patient encounter procedure 04/20/2024 11:30 AM EST Office Visit [facility] [address] [place] [id number] Norma Nicholas PA-C [address] [place] [address] post op- 3 mth follow up- Breast Center Comment on above: post op- 3 mth follo w up- Start: 01-29-2024 Influenza vaccination [facility] Start: 01-16-2024 End: 01-16-2024 Patient encounter procedure 01/16/2024 9:30 AM EDT Office Visit [facility] [address] [place] [id number] Norma Nicholas PA-C [address] [place] [address] post op [facility] Comment on above: post op Start: 01-09-2024 End: 01-09-2024 Admission to same day surgery center 01/09/2024 2:05 PM EDT - 01/09/2024 3:35 PM EDT Surgery Ambulatory Surgery [address] [place] [address] Tete Multani MD [address] [place] [address] RIGHT PALPATION EXCISIONAL BIOPSY Ambulatory Surgery Comment on above: RIGHT PALPATION EXCI SIONAL BIOPSY Start: 01-09-2024 End: 01-09-2024 Exc cyst/aberrant breast tissue open 1/> lesion OPEN EXCISION OF BREAST CYST UNILATERAL FEMALE BREAST Mass of right breast, unspecified quadrant 01/09/2024 2:05 PM EDT [facility] Start: 01-09-2024 Subsequent hospital visit by physician 01/09/2024 2:05 PM EDT Hospital Encounter Ambulatory Surgery [address] [place] [id number] Tete Multani MD [address] [place] [address] Mass of right breast, unspecified quadrant [N63.10] Ambulatory Surgery Comment on above: Mass of right breast , unspecified quadrant [N63.10] Start: 12-30-2023 End: 12-30-2023 ambulatory 12/30/2023 11:30 AM EDT Results Only [facility] [address] [place] [address] pre op labs [facility] Comment on above: pre op labs Start: 12-23-2023 End: 03-23-2024 CBC W Auto Differential panel - Blood COMPLETE BLOOD COUNT AND DIFFERENTIAL Lab Routine Pre-op testing Expected: 12/23/2023 (Approximate), Expires: 03/23/2024 [facility] Comment on above: Expected: 12/23/2023 (Approximate), Expires: 03/23/2024 Start: 12-23-2023 End: 03-23-2024 Comprehensive metabolic 2000 panel - Serum or Plasma COMPREHENSIVE METABOLIC PANEL Lab Routine Pre-op testing Expected: 12/23/2023 (Approximate), Expires: 03/23/2024 [facility] Work Phone: Comment on above: Expected: 12/23/2023 (Approximate), Expires: 03/23/2024 Start: 11-08-2023 End: 11-08-2023 Patient encounter procedure 11/08/2023 1:20 PM EDT Office Visit Breast Center [address] [address] Tete Multani MD [address] [place] [address] [facility] [place] Comment on above: NEW SURGICAL Start: 11-04-2023 End: 11-04-2023 Patient encounter procedure 11/04/2023 8:15 AM EDT Office Visit Breast Center [address] [place] [address] Narda Faria MD [address] [place] [address] INCISION CHECK Breast Center Comment on above: INCISION CHECK Start: 06-14-2023 End: 06-15-2024 US BREAST LTD RIGHT US BREAST LTD RIGHT Radiology Routine Mass of lower outer quadrant of right breast Expected: 06/14/2023, Expires: 06/15/2024 [facility] Work Phone: Comment on above: Expected: 06/14/2023 , Expires: 06/15/2024 Start: 05-30-2023 Behavioral Health Screening Behavioral Health Screening [facility] Start: 01-28-2023 Covid-19 Vaccine ( season) Covid-19 Vaccine () [facility] Start: 01-28-2023 Influenza vaccination Influenza Vacc ine (#1) [facility] Start: 05-30-2022 Depression Assessment Depression Ass essment [facility] Start: 2020 Screening for malign ant neoplasm of cervix [facility] Start: 01-18-2020 [facility] [employer] Work Phone: Start: 2018 Urine microalbumin profile DTaP,Tdap,Td Vaccine (1 - Tdap) [facility] Start: 2017 Annual PCP Team Information Scientist del Disease Visit Annual PCP Team Chronic Disease Visit [facility] Start: 2017 Depression Screening Depression Scre ening [facility] Start: 2017 Hepatitis C screening Hepatitis C Sc yevgeniy [facility] Start: 2017 HIV screening HIV Screening [facility] Start: 2017 Spirometry Spirometry [facility] Start: 2015 Meningococcal B Vaccine: Consider Based On Risk (1 of 2 - Patient Seeks Protection) Meningococcal B Vaccine: Consider Based On Risk (1 of 2 - Patient Seeks Protection) [facility] Start: 2014 HPV Vaccine (1 - 3-d ose series) HPV Vaccine (1 - 3-dose series) [facility] Start: 2014 HPV Vaccines (1 - 3-dose series) HPV Vaccines (1 - 3-dose series) [facility] Start: 2013 Peds To Adult Transition Annual Assessment Peds To Adult Transition Annual Assessment [facility] Start: 2011 Peds To Adult Transition Initial Discussion Peds To Adult Transition Initial Discussion [facility] Start: 2008 HPV Vaccine (1 - 2-d ose series) HPV Vaccine (1 - 2-dose series) [facility] Start: 2005 Pneumococcal vaccination Pneumococcal Vaccine (1 of 2 - PCV) [facility] Start: 2005 Pneumococcal Vaccine : Pediatrics (0 to 5 Years) and At-Risk Patients (6 to 64 Years) (1 of 2 - PCV) Pneumococcal Vaccine: Pediatrics (0 to 5 Years) and At-Risk Patients (6 to 64 Years) (1 of 2 - PCV) [facility] Start: 1999 Covid-19 Vaccine (#1) Covid-19 Vacci ne (#1) [facility] Start: 1999 Hepatitis B Vaccine (1 of 3 - 3-dose series) Hepatitis B Vaccine (1 of 3 - 3-dose series) [facility] Start: 1999 HIV screening HIV Screening [facility] Start: 1999 Lipid panel Lipid Panel [facility] Start: 1999 Yearly Adult Physical Yearly Adult P hysical [facility] End: 11-03-2023 Bacteria identified in Blood by Culture [facility] Service Area Work Phone: Comment on above: STAT (Lab) for 1 Occ urrences starting 11/03/2023 until 11/03/2023 End: 11-03-2023 Bacteria identified in Unspecified specimen by Culture Tissue/Wound Culture/Smear Microbiology STAT Once (Lab) for 1 Occurrences starting 11/03/2023 until 11/03/2023 [facility] Work Phone: Comment on above: Once (Lab) for 1 Occ urrences starting 11/03/2023 until 11/03/2023 Bacteria identified in Wound by Culture ABSCESS AND WOUND CULTURE WITH GRAM STAIN Microbiology Routine Breast abscess 11/02/2023 1:19 PM EDT [facility] Work Phone: Exc cyst/aberrant breast tissue open 1/> lesion EXCIS BREAST LESION Procedures Routine Mass of right breast, unspecified quadrant Ordered: 12/23/2023 [facility] Comment on above: Ordered: 12/23/2023 SURGICAL PATHOLOGY [facility] Work Phone: Comment on above: Release Upon Orderin g for 1 Occurrences starting 10/11/2023, 1 completed End: 12-07-2024 US Breast - right limited US BREAST LTD RIGHT Radiology Routine Abscess of right breast 1 Occurrences starting 11/08/2023 until 12/07/2024 [facility] Work Phone: Comment on above: 1 Occurrences starti ng 11/08/2023 until 12/07/2024 End: 06-08-2024 US BREAST LTD RIGHT US BREAST LTD RIGHT Radiology Routine Mass of right breast, unspecified quadrant 1 Occurrences starting 05/10/2023 until 06/08/2024 [facility] Work Phone: Comment on above: 1 Occurrences starti ng 05/10/2023 until 06/08/2024 End: 10-12-2024 US Guidance for biopsy of Breast - right US BIOPSY BREAST RIGHT Radiology Routine Breast disorder 1 Occurrences starting 09/13/2023 until 10/12/2024 [facility] Work Phone: Comment on above: 1 Occurrences starti ng 09/13/2023 until 10/12/2024 [facility] Work Phone: [facility] NEGATED: Highlighted row has been ruled out! Planned Goals not documented [facility] Work Phone: Immunizations Immunization Date Immunization Notes Care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 clip placed. Continued to grow. 05/17/23 - RIGHT breast US 5:00 4 CMFN - 0.6 x 0.4 x 0.6 cm oval mass - 6 mon US follow up recommended 6:00 4 CMFN - 1.4 x 1.1 x 1.5 cm oval mass - 6 mon US follow up recommended 7:00 4 CMFN - 3.6 x 0.7 x 1.8 cm lobulated mass - 6 mon US follow up recommended 06/14/23 - RIGHT breast US: 5:00 4 CMFN - 0.3 x 0.5 x 0.5 cm oval mass. - 3 month US follow up recommended 6:00 4 CMFN - 1.5 x 1.8 x 1.3 cm oval mass with associated biopsy clip 7:00 4 CMFN - 3.6 x 2.6 x 1 cm lobulated mass, c/w lactating adenoma - 3 month US follow up recommended 09/13/23 - RIGHT breast US - 5:00 4 CMFN - Previously described finding at no longer visualized. 6:00 4 CMFN 1.2 x 1.1 x 2 cm lobulated mass - BIOPSY RECOMMENDED 7:00 4 CMFN 2.3 x 1 x 3 cm oval mass - 6 month follow up of 7:00 lesion recommended. 10/11/23 ([facility]) - RIGHT breast US guided CNB at 6:00, 4 CMFN, with hydromark clip placement - Benign breast tissue with organizing fat necrosis, multinucleated giant cell reaction and lactational changes. Short interval (6 month) follow up recommended) After that biopsy, her skin healed but then RIGHT breast became red and inflamed so she returned to clinic. Started spontaneously draining 1 day before her appointment. 11/02/23 - RIGHT breast US - Diffuse skin thickening and hyperemia at 6:00. Biopsy clip noted. No drainable fluid collection. 11/02/23 - IANDD, washout, placement of harjit drain performed in office. Culture grew cutibacterium avidum (skin microbiota). Started on Keflex QID. Stopped breast feeding. 11/03/23 - Presented to ED reporting harjit drain had fallen out. Treated with zosyn and 1 g vanc in ED. Wound culture - Serratia marcescens, acinetobacter calcoaceticus-baumannii. Both susceptible to cipro, levo, bactrim 11/08/23 - Bactrim OBJECTIVE: PHYSICAL EXAM: Physical Exam Constitutional: General: She is not in acute distress. Appearance: Normal appearance. HENT: Head: Normocephalic and atraumatic. Eyes: Pupils: Pupils are equal, round, and reactive to light. Pulmonary: Effort: Pulmonary effort is normal. Chest: Breasts: Right: Mass present. No swelling, bleeding, inverted nipple, nipple discharge, skin change or tenderness. Left: No swelling, bleeding, inverted nipple, mass, nipple discharge, skin change or tenderness. Musculoskeletal: General: Normal range of motion. Lymphadenopathy: Upper Body: Right upper body: No supraclavicular or axillary adenopathy. (more content not included)... [facility] 11-08-2023 History and physical note Images from the original note were not included. [facility] [place] Department of Breast Surgery [facility] REASON for TODAY'S VISIT: No chief complaint on file. REFERRAL: Self PCP: Jonnathan Pelayo My clinic note and plan will be communicated back to the referring physician by way of shared medical record and/or written letter via [place] mail. HISTORY of PRESENT ILLNESS: Yael Ayers is a 23 year old White premenopausal female who presents today for a second opinion regarding a RIGHT breast mass and infection. She reports since her last visit she has stopped . She drained a significant amount of pus. The area under her left breast has healed significantly in that time. It is no longer draining. BREAST HISTORY: Patient palpated a right inferior breast mass in October or November 2022 while in 3rd trimester. 01/2023 - Delivered baby [place] mass grew in size February 2023 ([facility]) Right breast US showing a 2.2 x 1.7 x 0.9 cm mass at 6:00. 04/11/2023 ([facility])- Right breast US-guided CNBx showed findings consistent with adenoma. Negative for atypia or malignancy. Unknown clip placed. Continued to grow. 05/17/23 - RIGHT breast US 5:00 4 CMFN - 0.6 x 0.4 x 0.6 cm oval mass - 6 mon US follow up recommended 6:00 4 CMFN - 1.4 x 1.1 x 1.5 cm oval mass - 6 mon US follow up recommended 7:00 4 CMFN - 3.6 x 0.7 x 1.8 cm lobulated mass - 6 mon US follow up recommended 06/14/23 - RIGHT breast US: 5:00 4 CMFN - 0.3 x 0.5 x 0.5 cm oval mass. - 3 month US follow up recommended 6:00 4 CMFN - 1.5 x 1.8 x 1.3 cm oval mass with associated biopsy clip 7:00 4 CMFN - 3.6 x 2.6 x 1 cm lobulated mass, c/w lactating adenoma - 3 month US follow up recommended 09/13/23 - RIGHT breast US - 5:00 4 CMFN - Previously described finding at no longer visualized. 6:00 4 CMFN 1.2 x 1.1 x 2 cm lobulated mass - BIOPSY RECOMMENDED 7:00 4 CMFN 2.3 x 1 x 3 cm oval mass - 6 month follow up of 7:00 lesion recommended. 10/11/23 ([facility]) - RIGHT breast US guided CNB at 6:00, 4 CMFN, with hydromark clip placement - Benign breast tissue with organizing fat necrosis, multinucleated giant cell reaction and lactational changes. Short interval (6 month) follow up recommended) After that biopsy, her skin healed but then RIGHT breast became red and inflamed so she returned to clinic. Started spontaneously draining 1 day before her appointment. 11/02/23 - RIGHT breast US - Diffuse skin thickening and hyperemia at 6:00. Biopsy clip noted. No drainable fluid collection. 11/02/23 - I&D, washout, placement of harjit drain performed in office. Culture grew cutibacterium avidum (skin microbiota). Started on Keflex QID. Stopped breast feeding. 11/03/23 - Presented to ED reporting harjit drain had fallen out. Treated with zosyn and 1 g vanc in ED. Wound culture - Serratia marcescens, acinetobacter calcoaceticus-baumannii. 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 Comments: Sexual Activity: Not Asked; No partner data on record Contraception: No contraception data on record FAMILY HISTORY: FAMILY HISTORY Problem Relation Age of Onset other (HTN [Other]) Mother other (HTN [Other]) Father Arthritis Maternal Grandmother other (htn [Other]) Maternal Grandmother Leukemia Maternal Grandmother 65 other (HTN [Other]) Maternal Grandfather Arthritis Maternal Grandfather other (Bone cancer) Maternal Aunt 35 other (esophageal cancer) Maternal Uncle 36 Cancer Maternal Uncle 16 unsure of type SOCIAL HISTORY: Employer And Job Title: No employer specified (STUDENT) Years Of Education Completed: Not specified Marital Status: with no children Social History Tobacco Use Smoking status: Former Packs/day: 0.50 Years: 3.00 Additional pack years: 0.00 Total pack years: 1.50 Types: Cigarettes Start date: 2014 Quit date: 2018 Years since quittin.4 Vaping Use Vaping Use: Never used Substance Use Topics Alcohol use: No Comment: Rarely Drug use: No Social History Social History Narrative 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 PAST MEDICAL HISTORY: PAST MEDICAL HISTORY Diagnosis Date Asthma Syncope one episode 2 years ago PAST SURGICAL HISTORY: PAST SURGICAL HISTORY Procedure Laterality Date NONE PROBLEM LIST:ACTIVE PROBLEM LIST Back Pain Anxiety Disorder Encounter for Screening for Human Papillomavirus (Hpv) Irregular Menstruation, Unspecified Other Specified Noninflammatory Disorders of Vagina Other Specified Related Conditions, Third Trimester Unspecified Lump in Unspecified Breast Acquired Scoliosis Anemia Due to Acute Blood Loss Asthma Irritable Bowel Syndrome Sinus Tachycardia Syncope and Collapse ALLERGIES: ALLERGIES Allergen Reactions Venom-Honey Bee Swelling Bees Swelling Beeswax Other: See Comments CURRENT MEDICATIONS: [id number] tab Take 1 tablet by mouth once daily. cholecalciferol (VITAMIN D-3) 50 mcg (2,000 unit) tablet Take 1 tablet by mouth once daily. Norethindrone, Contraceptive, 0.35 mg tablet TAKE 1 TABLET (0.35 MG) BY MOUTH IN THE MORNING citalopram (CELEXA) 20 mg tablet Take 20 mg by mouth every morning. buPROPion (WELLBUTRIN) 75 mg tablet TAKE 2 TABLETS (150 MG) BY MOUTH IN THE MORNING. REVIEW OF SYSTEMS: ROS see HPI EXAMINATION: Ht 162.6 cm (5' 4 ) Wt 77.1 kg (170 lb) LMP 08/26/2023 (Approximate) BMI 29.18 kg/m Body mass index is 29.18 kg/m . Physical Exam Exam conducted with a electrical assemblies supervisor present. Constitutional: General: She is not in acute distress. Appearance: Normal appearance. HENT: Head: Normocephalic and atraumatic. Eyes: Pupils: Pupils are equal, round, and reactive to light. Pulmonary: Effort: Pulmonary effort is normal. Chest: Breasts: Right: Bleeding, nipple discharge, skin change and tenderness present. No swelling, inverted nipple or mass. Left: Nipple discharge present. No swelling, bleeding, inverted nipple, mass, skin change or tenderness. Comments: Milky nipple discharge bilaterally Musculoskeletal: General: Normal range of motion. Lymphadenopathy: Upper Body: Right upper body: No supraclavicular or axillary adenopathy. Left upper body: No supraclavicular or axillary adenopathy. Skin: General: Skin is warm and dry. Coloration: Skin is not jaundiced. Findings: No rash. Neurological: General: No focal deficit present. Mental Status: She is alert and oriented to person, place, and time. Gait: Gait normal. Psychiatric: Mood and Affect: Mood normal. Behavior: Behavior normal. Thought Content: Thought content normal. Judgment: Judgment normal. Ptosis: Grade II No images are attached to the encounter. BREAST IMAGING: See above Tissue/Wound Culture/Smear Specimen: Tissue/Biopsy - Specimen from wound (specimen) Component 4 d ago Tissue/Wound Culture/Smear (1+) Rare Serratia marcescens group Abnormal Tissue/Wound Culture/Smear (1+) Rare Acinetobacter calcoaceticus-baumannii complex Abnormal Gram Stain (3+) Moderate Polymorphonuclear leukocytes Gram Stain No organisms seen Resulting Agency [facility] Susceptibility Organism Antibiotic Method Susceptibility Serratia marcescens group Amoxicillin/Clavulanate MICROSCAN >16/8 mcg/mL: Resistant Serratia marcescens group Ampicillin MICROSCAN 16.000 mcg/mL: Resistant Serratia marcescens group Ampicillin/Sulbactam MICROSCAN 16/8 mcg/mL: Resistant Serratia marcescens group Cefazolin MICROSCAN >16 mcg/mL: Resistant Serratia marcescens group Ceftriaxone MICROSCAN <=1.000 mcg/mL: Susceptible Serratia marcescens group Cefuroxime MICROSCAN >16 mcg/mL: Resistant Serratia marcescens group Ciprofloxacin MICROSCAN <=0.250 mcg/mL: Susceptible Serratia marcescens group Gentamicin MICROSCAN <=2.000 mcg/mL: Susceptible Serratia marcescens group Levofloxacin MICROSCAN <=0.500 mcg/mL: Susceptible Serratia marcescens group Piperacillin/Tazobactam MICROSCAN <=8.000 mcg/mL: Susceptible Serratia marcescens group Trimethoprim/Sulfamethoxazole MICROSCAN <=0.5/9.5 mcg/mL: Susceptible Acinetobacter calcoaceticus-baumannii complex Ampicillin/Sulbactam MICROSCAN <=4/2 mcg/mL: Susceptible Acinetobacter calcoaceticus-baumannii complex Cefepime MICROSCAN 8 mcg/mL: Susceptible Acinetobacter calcoaceticus-baumannii complex Ceftazidime MICROSCAN 8.000 mcg/mL: Susceptible Acinetobacter calcoaceticus-baumannii complex Ciprofloxacin MICROSCAN <=0.250 mcg/mL: Susceptible Acinetobacter calcoaceticus-baumannii complex Gentamicin MICROSCAN <=2.000 mcg/mL: Susceptible Acinetobacter calcoaceticus-baumannii complex Levofloxacin MICROSCAN <=0.500 mcg/mL: Susceptible Acinetobacter calcoaceticus-baumannii complex Piperacillin/Tazobactam MICROSCAN <8.000 mcg/mL: Susceptible Acinetobacter calcoaceticus-baumannii complex Tobramycin MICROSCAN <=2 mcg/mL: Susceptible Acinetobacter calcoaceticus-baumannii complex Trimethoprim/Sulfamethoxazole MICROSCAN <=0.5/9.5 mcg/mL: Susceptible Specimen Collected: 11/03/23 9:07 PM Performed by: [facility] Last Resulted: 11/06/23 2:34 PM Received From: [facility] Result Received: 11/07/23 10:41 AM No results found for: SURGPATH ( Assessment/Plan ASSESSMENT/PLAN: Ms. Aeyrs is a 23 year old premenopausal female who has a past medical history of Asthma and Syncope. and a recently diagnosed RIGHT Breast infection. We reviewed her imaging and pathology in detail. Copies of her imaging reports and pathology reports were given previously. Educational materials were provided. I advised that I would avoid on the RIGHT breast until the skin lesion had healed completed. Pumping or breast feeding from the LEFT breast is fine at this time. Reviewed cultures obtained at . Agree with prescription for bactrim. She was given xeroform dressing, guaze and paper tape for dressing the lesion on her RIGHT breast. She is concerned about the palpable area in her RIGHT breast. I advised that I would recommend against surgical intervention while she is , especially as this is a benign lesion by biopsy. She plans to breastfeed for 12 months (January 2024). We will plan for repeat RIGHT US in February with possible excisional biopsy pending results of imaging and exam. She tentatively anticipates that her sister will get in April and she would like to avoid surgery in that month. She was given the opportunity to ask questions. Additional workup needed: yes, Repeat RIGHT breast US in Feb 2024 & exam on same day Ms. Ayers will return to our office in Feb 2024. She has our names and numbers to contact us if she has any questions or concerns. She was advised to contact my office sooner with any issues or concerns or if the area in the right breast is not healing. No future appointments. Tete Multani MD FACOG Breast Surgical Oncology & Benign Gynecology [facility] [address] [place] [address] Appointment cc: Narda Bienvenido [address] [facility] [address] Jonnathan Pelayo I spent a total of 55 minutes on the date of the service which included preparing to see the patient, [id number] patient care, completing clinical documentation, obtaining and/or reviewing separately obtained history, performing a medically appropriate examination, and counseling and educating the patient/family/caregiver. [facility] 11-08-2023 History and physical note Images from the original note were not included. [facility] [place] Department of Breast Surgery [facility] REASON for TODAY'S VISIT: No chief complaint on file. REFERRAL: Self PCP: Jonnathan Pelayo My clinic note and plan will be communicated back to the referring physician by way of shared medical record and/or written letter via US mail. HISTORY of PRESENT ILLNESS: Yael Ayers is a 23 year old White premenopausal female who presents today for a second opinion regarding a RIGHT breast mass and infection. She reports since her last visit she has stopped . She drained a significant amount of pus. The area under her left breast has healed significantly in that time. It is no longer draining. BREAST HISTORY: Patient palpated a right inferior breast mass in October or November 2022 while in 3rd trimester. 01/2023 - Delivered baby [place] mass grew in size February 2023 ([facility]) Right breast US showing a 2.2 x 1.7 x 0.9 cm mass at 6:00. 04/11/2023 ([facility])- Right breast US-guided CNBx showed findings consistent with adenoma. Negative for atypia or malignancy. Unknown clip placed. Continued to grow. 05/17/23 - RIGHT breast US 5:00 4 CMFN - 0.6 x 0.4 x 0.6 cm oval mass - 6 mon US follow up recommended 6:00 4 CMFN - 1.4 x 1.1 x 1.5 cm oval mass - 6 mon US follow up recommended 7:00 4 CMFN - 3.6 x 0.7 x 1.8 cm lobulated mass - 6 mon US follow up recommended 06/14/23 - RIGHT breast US: 5:00 4 CMFN - 0.3 x 0.5 x 0.5 cm oval mass. - 3 month US follow up recommended 6:00 4 CMFN - 1.5 x 1.8 x 1.3 cm oval mass with associated biopsy clip 7:00 4 CMFN - 3.6 x 2.6 x 1 cm lobulated mass, c/w lactating adenoma - 3 month US follow up recommended 09/13/23 - RIGHT breast US - 5:00 4 CMFN - Previously described finding at no longer visualized. 6:00 4 CMFN 1.2 x 1.1 x 2 cm lobulated mass - BIOPSY RECOMMENDED 7:00 4 CMFN 2.3 x 1 x 3 cm oval mass - 6 month follow up of 7:00 lesion recommended. 10/11/23 ([facility]) - RIGHT breast US guided CNB at 6:00, 4 CMFN, with hydromark clip placement - Benign breast tissue with organizing fat necrosis, multinucleated giant cell reaction and lactational changes. Short interval (6 month) follow up recommended) After that biopsy, her skin healed but then RIGHT breast became red and inflamed so she returned to clinic. Started spontaneously draining 1 day before her appointment. 11/02/23 - RIGHT breast US - Diffuse skin thickening and hyperemia at 6:00. Biopsy clip noted. No drainable fluid collection. 11/02/23 - I&D, washout, placement of harjit drain performed in office. Culture grew cutibacterium avidum (skin microbiota). Started on Keflex QID. Stopped breast feeding. 11/03/23 - Presented to ED reporting harjit drain had fallen out. Treated with zosyn and 1 g vanc in ED. Wound culture - Serratia marcescens, acinetobacter calcoaceticus-baumannii. 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 Comments: Sexual Activity: Not Asked; No partner data on record Contraception: No contraception data on record FAMILY HISTORY: FAMILY HISTORY Problem Relation Age of Onset other (HTN [Other]) Mother other (HTN [Other]) Father Arthritis Maternal Grandmother other (htn [Other]) Maternal Grandmother Leukemia Maternal Grandmother 65 other (HTN [Other]) Maternal Grandfather Arthritis Maternal Grandfather other (Bone cancer) Maternal Aunt 35 other (esophageal cancer) Maternal Uncle 36 Cancer Maternal Uncle 16 unsure of type SOCIAL HISTORY: Employer And Job Title: No employer specified (STUDENT) Years Of Education Completed: Not specified Marital Status: with no children Social History Tobacco Use Smoking status: Former Packs/day: 0.50 Years: 3.00 Additional pack years: 0.00 Total pack years: 1.50 Types: Cigarettes Start date: 2014 Quit date: 2017 Years since quittin.4 Vaping Use Vaping Use: Never used Substance Use Topics Alcohol use: No Comment: Rarely Drug use: No Social History Social History Narrative 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 PAST MEDICAL HISTORY: PAST MEDICAL HISTORY Diagnosis Date Asthma Syncope one episode 2 years ago PAST SURGICAL HISTORY: PAST SURGICAL HISTORY Procedure Laterality Date NONE PROBLEM LIST:ACTIVE PROBLEM LIST Back Pain Anxiety Disorder Encounter for Screening for Human Papillomavirus (Hpv) Irregular Menstruation, Unspecified Other Specified Noninflammatory Disorders of Vagina Other Specified Related Conditions, Third Trimester Unspecified Lump in Unspecified Breast Acquired Scoliosis Anemia Due to Acute Blood Loss Asthma Irritable Bowel Syndrome Sinus Tachycardia Syncope and Collapse ALLERGIES: ALLERGIES Allergen Reactions Venom-Honey Bee Swelling Bees Swelling Beeswax Other: See Comments CURRENT MEDICATIONS: Iriybrba-Eb-Yuh-Fe-FA tab Take 1 tablet by mouth once daily. cholecalciferol (VITAMIN D-3) 50 mcg (2,000 unit) tablet Take 1 tablet by mouth once daily. Norethindrone, Contraceptive, 0.35 mg tablet TAKE 1 TABLET (0.35 MG) BY MOUTH IN THE MORNING citalopram (CELEXA) 20 mg tablet Take 20 mg by mouth every morning. buPROPion (WELLBUTRIN) 75 mg tablet TAKE 2 TABLETS (150 MG) BY MOUTH IN THE MORNING. REVIEW OF SYSTEMS: ROS see HPI EXAMINATION: Ht 162.6 cm (5' 4 ) Wt 77.1 kg (170 lb) LMP 08/26/2023 (Approximate) BMI 29.18 kg/m Body mass index is 29.18 kg/m . Physical Exam Exam conducted with a electrical assemblies supervisor present. Constitutional: General: She is not in acute distress. Appearance: Normal appearance. HENT: Head: Normocephalic and atraumatic. Eyes: Pupils: Pupils are equal, round, and reactive to light. Pulmonary: Effort: Pulmonary effort is normal. Chest: Breasts: Right: Bleeding, nipple discharge, skin change and tenderness present. No swelling, inverted nipple or mass. Left: Nipple discharge present. No swelling, bleeding, inverted nipple, mass, skin change or tenderness. Comments: Milky nipple discharge bilaterally Musculoskeletal: General: Normal range of motion. Lymphadenopathy: Upper Body: Right upper body: No supraclavicular or axillary adenopathy. Left upper body: No supraclavicular or axillary adenopathy. Skin: General: Skin is warm and dry. Coloration: Skin is not jaundiced. Findings: No rash. Neurological: General: No focal deficit present. Mental Status: She is alert and oriented to person, place, and time. Gait: Gait normal. Psychiatric: Mood and Affect: Mood normal. Behavior: Behavior normal. Thought Content: Thought content normal. Judgment: Judgment normal. Ptosis: Grade II No images are attached to the encounter. BREAST IMAGING: See above Tissue/Wound Culture/Smear Specimen: Tissue/Biopsy - Specimen from wound (specimen) Component 4 d ago Tissue/Wound Culture/Smear (1+) Rare Serratia marcescens group Abnormal Tissue/Wound Culture/Smear (1+) Rare Acinetobacter calcoaceticus-baumannii complex Abnormal Gram Stain (3+) Moderate Polymorphonuclear leukocytes Gram Stain No organisms seen Resulting Agency [facility] Susceptibility Organism Antibiotic Method Susceptibility Serratia marcescens group Amoxicillin/Clavulanate MICROSCAN >16/8 mcg/mL: Resistant Serratia marcescens group Ampicillin MICROSCAN 16.000 mcg/mL: Resistant Serratia marcescens group Ampicillin/Sulbactam MICROSCAN 16/8 mcg/mL: Resistant Serratia marcescens group Cefazolin MICROSCAN >16 mcg/mL: Resistant Serratia marcescens group Ceftriaxone MICROSCAN <=1.000 mcg/mL: Susceptible Serratia marcescens group Cefuroxime MICROSCAN >16 mcg/mL: Resistant Serratia marcescens group Ciprofloxacin MICROSCAN <=0.250 mcg/mL: Susceptible Serratia marcescens group Gentamicin MICROSCAN <=2.000 mcg/mL: Susceptible Serratia marcescens group Levofloxacin MICROSCAN <=0.500 mcg/mL: Susceptible Serratia marcescens group Piperacillin/Tazobactam MICROSCAN <=8.000 mcg/mL: Susceptible Serratia marcescens group Trimethoprim/Sulfamethoxazole MICROSCAN <=0.5/9.5 mcg/mL: Susceptible Acinetobacter calcoaceticus-baumannii complex Ampicillin/Sulbactam MICROSCAN <=4/2 mcg/mL: Susceptible Acinetobacter calcoaceticus-baumannii complex Cefepime MICROSCAN 8 mcg/mL: Susceptible Acinetobacter calcoaceticus-baumannii complex Ceftazidime MICROSCAN 8.000 mcg/mL: Susceptible Acinetobacter calcoaceticus-baumannii complex Ciprofloxacin MICROSCAN <=0.250 mcg/mL: Susceptible Acinetobacter calcoaceticus-baumannii complex Gentamicin MICROSCAN <=2.000 mcg/mL: Susceptible Acinetobacter calcoaceticus-baumannii complex Levofloxacin MICROSCAN <=0.500 mcg/mL: Susceptible Acinetobacter calcoaceticus-baumannii complex Piperacillin/Tazobactam MICROSCAN <8.000 mcg/mL: Susceptible Acinetobacter calcoaceticus-baumannii complex Tobramycin MICROSCAN <=2 mcg/mL: Susceptible Acinetobacter calcoaceticus-baumannii complex Trimethoprim/Sulfamethoxazole MICROSCAN <=0.5/9.5 mcg/mL: Susceptible Specimen Collected: 11/03/23 9:07 PM Performed by: [facility] Last Resulted: 11/06/23 2:34 PM Received From: [facility] Result Received: 11/07/23 10:41 AM No results found for: SURGPATH ( Assessment/Plan ASSESSMENT/PLAN: Ms. Ayers is a 23 year old premenopausal female who has a past medical history of Asthma and Syncope. and a recently diagnosed RIGHT Breast infection. We reviewed her imaging and pathology in detail. Copies of her imaging reports and pathology reports were given previously. Educational materials were provided. I advised that I would avoid on the RIGHT breast until the skin lesion had healed completed. Pumping or breast feeding from the LEFT breast is fine at this time. Reviewed cultures obtained at . Agree with prescription for bactrim. She was given xeroform dressing, guaze and paper tape for dressing the lesion on her RIGHT breast. She is concerned about the palpable area in her RIGHT breast. I advised that I would recommend against surgical intervention while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 discussed with the patient at the time of the examination. The patient signed the electronic consent form and was instructed to schedule the biopsy prior to leaving the department. US BREAST LTD RIGHT 06/14/2023 IMPRESSION: PROBABLY BENIGN - SHORT TERM INTERVAL FOLLOW-UP RECOMMENDED The 0.3 cm x 0.5 cm x 0.5 cm oval mass in the right breast at 5 o'clock is probably benign. A follow-up ultrasound in 3 months is recommended. The 1.5 cm x 1.8 cm x 1.3 cm oval mass in the right breast at 6 o'clock middle depth is probably benign. The 3.6 cm x 2.6 cm x 1 cm lobulated mass in the right breast at 7 o'clock posterior depth is probably benign. A follow-up ultrasound in 3 months is recommended. A follow-up ultrasound in 3 months is recommended. The exam was reviewed by a staff physician. SUMMARY: The patient is under the clinical care of Dr. Faria. OBJECTIVE: PHYSICAL EXAM: 2,4 cms mass at 5-:00 - 6:00 o'clock right breast, mobile , soft and well defined. Left breast unremarkable. ASSESSMENT: Yael Ayers, 23 year old female, presenting with multiple right breast masses, biopsy showing findings consistent with adenoma. Ultrasound performed today. Breast biopsy recomended for right breast. PLAN: Follow-up with biopsy results. All questions were answered; patient has no further concerns. I spent a total of 30 minutes on the date of the service which included preparing to see the patient, [id number] patient care, completing clinical documentation, obtaining and/or reviewing separately obtained history, performing a medically appropriate examination, counseling and educating the patient/family/caregiver, ordering medications, tests, or procedures, communicating with other HCPs (not separately reported), independently interpreting results (not separately reported), communicating results to the patient/family/caregiver, and care coordination (not separately reported). Narda Faria MD [facility] 09-13-2023 History of Present illness Narrative [facility] Department of Breast Surgical Oncology [facility] BREAST FOLLOW-UP SERVICE DATE: 09/13/2023 SUBJECTIVE: Yael Ayers, 23 year old female presents today for follow up. She was seen on 05/17/2023 while she was still lactating with a biopsy-proven adenoma and additional right breast masses which appeared following biopsy likely related. Given the enlargement and size of the largest mass (3.5 cm) a 1 month repeat physical exam and right breast US to demonstrate stability was recommended. She endorses left breast pain. She is still nursing her baby. BREAST IMAGING: US BREAST LTD RIGHT 2023 2:49 PM - Radiology, O[facility] In IMPRESSION: SUSPICIOUS FINDING - BIOPSY SHOULD BE CONSIDERED The 1.2 cm x 1.1 cm x 2 cm lobulated mass in the right breast at 6 o'clock anterior depth is suspicious of malignancy. This finding is in the area of the previously this mass has increased in size and appears more irregular compared to the prior examination. This may correspond to the previously biopsied finding at the 6:00 axis, 4 cm from the nipple, however the biopsy clip is not definitively visualized within this area. Given lack of prior examinations from the time of biopsy and the irregular appearance of this finding, ultrasound-guided core biopsy is recommended for further evaluation. The 2.3 cm x 1 cm x 3 cm oval mass in the right breast at 7 o'clock middle depth is probably benign. 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 Six-month follow-up is recommended to demonstrate continued stability. SUMMARY: The results and recommendations were discussed with the patient at the time of the examination. The patient signed the electronic consent form and was instructed to schedule the biopsy prior to leaving the department. US BREAST LTD RIGHT 06/14/2023 IMPRESSION: PROBABLY BENIGN - SHORT TERM INTERVAL FOLLOW-UP RECOMMENDED The 0.3 cm x 0.5 cm x 0.5 cm oval mass in the right breast at 5 o'clock is probably benign. A follow-up ultrasound in 3 months is recommended. The 1.5 cm x 1.8 cm x 1.3 cm oval mass in the right breast at 6 o'clock middle depth is probably benign. The 3.6 cm x 2.6 cm x 1 cm lobulated mass in the right breast at 7 o'clock posterior depth is probably benign. A follow-up ultrasound in 3 months is recommended. A follow-up ultrasound in 3 months is recommended. The exam was reviewed by a staff physician. SUMMARY: The patient is under the clinical care of Dr. Faria. OBJECTIVE: PHYSICAL EXAM: 2,4 cms mass at 5-:00 - 6:00 o'clock right breast, mobile , soft and well defined. Left breast unremarkable. ASSESSMENT: Yael Ayers, 23 year old female, presenting with multiple right breast masses, biopsy showing findings consistent with adenoma. Ultrasound performed today. Breast biopsy recomended for right breast. PLAN: Follow-up with biopsy results. All questions were answered; patient has no further concerns. I spent a total of 30 minutes on the date of the service which included preparing to see the patient, [id number] patient care, completing clinical documentation, obtaining and/or reviewing separately obtained history, performing a medically appropriate examination, counseling and educating the patient/family/caregiver, ordering medications, tests, or procedures, communicating with other HCPs (not separately reported), independently interpreting results (not separately reported), communicating results to the patient/family/caregiver, and care coordination (not separately reported). Narda Faria MD documented in this encounter [facility] 06-14-2023 Note HNO ID: [id number] Author: NARDA FARIA MD Service: ? Author Type: Physician Type: Progress Notes Filed: 06/14/2023 12:34 Note Text: BREAST FOLLOW-UP SERVICE DATE: 06/14/2023 SUBJECTIVE: Ms. Ayers is a 23 year old 4 month female who has a past medical history of Asthma and Syncope and multiple right breast masses, biopsy showing findings consistent with adenoma. She consulted 05/17/2023, lactating at that time and with a biopsy-proven adenoma, the additional right breast masses which appeared following biopsy were likely related according to ultrasound. However, given the enlargement and size of the largest mass (3.5 cm) we plan for her to return in 1 month for repeat physical exam and right breast US to demonstrate stability. OBJECTIVE: REVIEW OF SYSTEMS PAIN ASSESSMENT: Negative for pain, history of chronic pain, or current treatment for a chronic pain condition. GENERAL: No weight loss, malaise or fevers HEENT: Negative for frequent or significant headaches, No changes in hearing or vision, no nose bleeds or other nasal problems MUSCULOSKELETAL: Negative for joint pain or swelling, back pain or muscle pain PSYCH: Negative for sleep disturbance, mood disorder and recent psychosocial stressors Physical Exam Chest: Breasts: Breasts are symmetrical. Right: Normal. Left: Normal. Musculoskeletal: General: Normal range of motion. Cervical back: Normal range of motion. Lymphadenopathy: Upper Body: Right upper body: No axillary adenopathy. Left upper body: No axillary adenopathy. Skin: General: Skin is warm. Neurological: General: No focal deficit present. Mental Status: She is alert and oriented to person, place, and time. Breast Imaging: Breast Ultrasound was performed today, preliminary report: No significant changes. 3 months follow up recommended. ASSESSMENT: Yael Ayers, 23 year old female with a biopsy-proven adenoma and additional similar right breast masses. She was follow up today and ultrasound was performed showing no concerning findings or significant changes to her right breast lactational adenoma. We have discussed possible therapeutic interventions and have agreed un 3 months follow up. PLAN: Follow-up with me in three months with breast ultrasound. All questions were answered; patient has no further concerns. I spent a total of 30 minutes on the date of the service which included preparing to see the patient, [id number] patient care, completing clinical documentation, obtaining and/or reviewing separately obtained history, performing a medically appropriate examination, counseling and educating the patient/family/caregiver, ordering medications, tests, or procedures, communicating with other HCPs (not separately reported), independently interpreting results (not separately reported), and communicating results to the patient/family/caregiver. Narda Faria MD [facility] 05-17-2023 Note HNO ID: [id number] Author: Narda Faria MD Service: ? Author Type: Physician Type: Progress Notes Filed: 05/17/2023 2:56 PM Note Text: [facility] [place] Department of General Surgery [facility] REASON for TODAY'S VISIT: Surgical consultation for breast lump REFERRAL: NA PCP: Jonnathan Pelayo My clinic note and plan will be communicated back to the referring physician by way of shared medical record and/or written letter via [place] mail. HISTORY of PRESENT ILLNESS: Yael Ayers is a 23 year old 3 month female who presents today regarding right breast masses. Largest mass biopsied at outside facility and determined to be adenoma. Patient noticed multiple painful smaller right breast masses following biopsy. Ms. Ayers initially noticed a nontender 2 cm lump in the inferior right breast toward the end of her in October or November 2022 (delivered a baby boy named JElli in January). She felt that the area was slowly getting bigger. The mass was followed by her OB and a right breast US was ordered when the mass continued to enlarge to at least twice the size at her 6 week post visit. She underwent right breast biopsy on 04/11/2023 at outside hospital and patient reports she was was told it was a benign mass which did not have to do with . She then noticed an additional 3 smaller right breast masses less than 1 week after biopsy. The masses have become more painful over last few weeks. Patient is still her baby and does not experience additional pain with . She has also noticed dimpling of her right nipple since early . Patient has a history of cyclical bilateral breast cysts. She denies any nipple discharge (other than breastmilk), breast skin changes, or nipple inversion. BREAST HISTORY: Patient palpated a right inferior breast mass in October or November 2022 while in 3rd trimester. February 2023 ([facility]) Right breast US showing a 2.2 x 1.7 x 0.9 cm mass at 6:00. 04/11/2023 ([facility])- Right breast US-guided CNBx showed findings consistent with adenoma. Negative for atypia or malignancy. Unknown clip placed. 05/17/2023 ([facility]) - right breast ultrasound showed a 0.6 cm oval mass at 5:00 4 cmFN which correlates as palpated. 1.5 cm oval mass at 6:00 4 cmFN which correlates as palpated and has associated biopsy clip. 3.6 cm lobulated mass at 7:00 4 cmFN which correlates as palpated. 6 month follow up ultrasound recommended for all three sites. 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 OB History T0 L1 SAB0 IAB0 Ectopic0 Multiple0 Live Births1 Comment: Currently breast feeding [employer] History LMP: 01/25/2014, Having periods Age at Menarche: 11 Age at First : 11 Age at Menopause: [employer] Developer History Comments: Sexual Activity: Not Asked; No partner data on record Contraception: No contraception data on record She is currently her child. Gynecologic surgery: She has not had INDEPENDENT BE[employer]Y CONSULTANT surgery FAMILY HISTORY: FAMILY HISTORY Problem Relation Age of Onset other (HTN [Other]) Mother other (HTN [Other]) Father Arthritis Maternal Grandmother other (htn [Other]) Maternal Grandmother Leukemia Maternal Grandmother 65 other (HTN [Other]) Maternal Grandfather Arthritis Maternal Grandfather other (Bone cancer) Maternal Aunt 35 other (esophageal cancer) Maternal Uncle 36 Cancer Maternal Uncle 16 unsure of type The Patient is not of Ashkenazic Ancestry. She has 1 sisters. History of Genetic Testing: No Patient denies any known personal or family history of Hemophilia, VonWillebrands Disease. Patient denies any known personal or family history of DVT, PE or coagulopathy. Needed blood transfusion during . 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 PAST MEDICAL HISTORY: PAST MEDICAL HISTORY Diagnosis Date Asthma Syncope one episode 2 years ago PAST SURGICAL HISTORY: PAST SURGICAL HISTORY Procedure Laterality Date NONE PROBLEM LIST:ACTIVE PROBLEM LIST Back Pain Anxiety Disorder Encounter for Screening for Human Papillomavirus (Hpv) Pregn (more content not included)... [facility] 05-17-2023 Note HNO ID: [id number] Author: Gladys Zavala RT(R) Service: Radiology Author Type: Technologist Type: Progress Notes Filed: 05/17/2023 10:11 AM Note Text: Radiology Service Progress Note PATIENT NAME: Yael Ayers DATE OF SERVICE: May 17, 2023 TIME: 10:11 AM PATIENT IDENTITY VERIFICATION COMPLETED USING TWO (2) IDENTIFIERS: Name and Date of confirmed by patient verbally. FALL SCREENING: Has the patient had 2 falls in the last year or 1 fall with injury or currently using an Ambulatory Assistive Device (Walker, Cane, Wheelchair, Crutches, etc.)? No PATIENT GENDER DATA: Female. status: : No status: YES Dr. Bee aware. PATIENT RELEVANT IMPLANT DATA REVIEWED: Yes RADIOLOGY DEPARTMENT: Mammography PERIPHERAL IV DATA: Not applicable SIGNED BY: RT Natalie(R) May 17, 2023 10:11 AM [facility] note Diagnosis Mass of right breast, unspecified quadrant- Primary [facility] Diagnosis Mass of lower outer quadrant of right breast- Primary [facility]* Diagnosis Breast disorder- Primary Unspecified breast disorder documented in this encounter [facility] note* Diagnosis Mass of right breast, unspecified quadrant- Primary [facility]* Diagnosis Lactating adenoma of breast documented in this encounter [facility] note* Diagnosis Breast disorder Unspecified breast disorder documented in this encounter [facility] note* Diagnosis Breast abscess- Primary Inflammatory disease of breast Breast abscess Inflammatory disease of breast [facility]* Diagnosis Mass of right breast, unspecified quadrant- Primary [facility]* Diagnosis Breast abscess- Primary Inflammatory disease of breast documented in this encounter [facility] note* Diagnosis Breast abscess Inflammatory disease of breast documented in this encounter [facility] note* Diagnosis Cellulitis of right breast- Primary documented in this encounter [facility] Work Phone: Evaluation note* Diagnosis Mass of lower outer quadrant of right breast- Primary Abscess of right breast Inflammatory disease of [facility] Abscess of right breast- Primary Inflammatory disease of breast [facility] Diagnosis Mass of lower outer quadrant of right breast- Primary Obesity, Class I, BMI 30-34.9 Obesity, unspecified [facility] Diagnosis Mass of right breast, unspecified quadrant- Primary Pre-op testing Preoperative examination, unspecified Mass of right breast, unspecified quadrant documented in this encounter [facility] note* Diagnosis Preop examination- Primary Preoperative examination, unspecified History of syncope Other specified personal history presenting hazards to health Mild intermittent asthma without complication Unspecified asthma Obesity, Class I, BMI 30-34.9 Obesity, unspecified Anxiety and depression Dysthymic disorder Mass of right breast, unspecified quadrant [facility]* Diagnosis Mass of lower outer quadrant of right breast- [facility] Attachments The following attachments cannot be sent through Care Everywhere. * [facility]Bermudian) [facility] Diagnostic Procedure Only (Routine) - Authorized Specialty Diagnoses / Procedures Referred By Lux bentley Referred To Contact [facility] Diagnoses Mass of right breast, unspecified quadrant Procedures US BREAST LTD RIGHT US BREAST UNI REAL TIME WITH IMAGE LIMITED Narda Faria MD [address] [place] [address] [facility] [employer] [address] [place] [phone] Referral ID Status Reason Start Date Expiration Date Visits Requested Visits Authorized [id number] Authorized Auto-Generat ed Referral 3 05/29/2023 1 1 [facility] for referral (narrative)* Diagnostic Procedure Only (Routine) - Authorized Specialty Diagnoses / Procedures Referred By Lux bentley Referred To Contact [facility] Diagnoses Mass of lower outer quadrant of right breast Procedures US BREAST LTD RIGHT US BREAST UNI [place] [address] [place] [address] [facility] [address] [place] [address] Referral ID Status Reason Start Date Expiration Date Visits Requested Visits Authorized [id number] Authorized Auto-Generat ed Referral 06/17/2023 06/15/2024 1 1 [facility] for referral (narrative)* Diagnostic Procedure Only (Routine) - Authorized Specialty Diagnoses / Procedures Referred By Contac t Referred To Contact [facility] Diagnoses Breast disorder Procedures US BIOPSY BREAST RIGHT BX BREAST W/DEVICE 1ST LESION ULTRASOUND GUID Yolanda Angela MD [address] [place] [address] [facility] [address] [place] [phone] Referral ID Status Reason Start Date Expiration Date Visits Requested Visits Authorized [id number] Authorized Auto-Generat ed Referral 09/13/2023 10/12/2024 1 1 [facility] for referral (narrative)* Diagnostic Procedure Only (Routine) - Closed Specialty Diagnoses / Procedures Referred By Contac t Referred To Contact [facility] Diagnoses Lactating adenoma of breast Procedures US BREAST LTD RIGHT US BREAST UNI REAL TIME WITH IMAGE LIMITED Narda Faria MD [facility] [place] [address] [facility] [address] [place] [phone] Referral ID Status Reason Start Date Expiration Date V isits Requested Visits Authorized [id number] Closed Auto-Generate d Referral 09/13/2023 07/13/2024 1 1 [facility] for referral (narrative)* Diagnostic Procedure Only (Routine) - Closed Specialty Diagnoses / Procedures Referred By Contviola t Referred To Contact [facility] Diagnoses Breast disorder Procedures US BIOPSY BREAST RIGHT BX BREAST W/DEVICE 1ST LESION ULTRASOUND Yolanda Nuñez MD [address] [place] [address] [facility] [address] [place] [phone] Referral ID Status Reason Start Date Expiration Date V isits Requested Visits Authorized [id number] Closed Auto-Generate d Referral 09/13/2023 10/12/2024 1 1 [facility] for referral (narrative)* Diagnostic Procedure Only (Routine) - Closed Specialty Diagnoses / Procedures Referred By Contac t Referred To Contact [facility] Diagnoses Breast abscess Procedures US BREAST LTD RIGHT US BREAST UNI [place] [address] [place] [address] [facility] [address] [place] [phone] Referral ID Status Reason Start Date Expiration Date V isits Requested Visits Authorized [id number] Closed Auto-Generate d Referral 11/02/2023 12/01/2024 1 1 T [facility] for referral (narrative)* Diagnostic Procedure Only (Routine) - Closed Specialty Diagnoses / Procedures Referred By Contac t Referred To Contact [facility] Diagnoses Breast abscess Procedures US BREAST LTD RIGHT US BREAST UNI REAL TIME WITH IMAGE LIMITED Narda Faria MD [address] [place] [address] [facility] [address] [place] [phone] Referral ID Status Reason Start Date Expiration Date V isits Requested Visits Authorized [id number] Closed Auto-Generate d Referral 11/02/2023 12/01/2024 1 1 [facility] for referral (narrative)* Diagnostic Procedure Only (Routine) - Pending Review Specialty Diagnoses / Procedures Referred By Contac t Referred To Contact [facility] Diagnoses Abscess of right breast Procedures US BREAST LTD RIGHT US BREAST UNI REAL TIME WITH IMAGE LIMITED Tete Multani MD [address] [place] [address] [facility] [address] [place] [phone] Referral ID Status Reason Start Date Expiration Date Visits Requested Visits Authorized [id number] Pending Review Auto-Generat ed Referral 11/08/2023 12/07/2024 1 1 [facility] for visit Narrative* Diagnostic Procedure Only (Routine) - Closed Specialty Diagnoses / Procedures Referred By Contac t Referred To Contact [facility] Diagnoses Lactating adenoma of breast Procedures US BREAST LTD RIGHT US BREAST UNI REAL TIME WITH IMAGE LIMITED Narda Faria MD [address] [place] [address] [facility] [address] [place] [phone] Referral ID Status Reason Start Date Expiration Date V isits Requested Visits Authorized [id number] Closed Auto-Generate d Referral 09/13/2023 07/13/2024 1 1 [facility] for visit Narrative* Diagnostic Procedure Only (Routine) - Closed Specialty Diagnoses / Procedures Referred By Contac t Referred To Contact [facility] Diagnoses Breast disorder Procedures US BIOPSY BREAST RIGHT BX BREAST W/DEVICE 1ST LESION ULTRASOUND GUID Yolanda Angela MD [address] [place] [address] [facility] [address] [place] [phone] Referral ID Status Reason Start Date Expiration Date V isits Requested Visits Authorized [id number] Closed Auto-Generate d Referral 09/13/2023 10/12/2024 1 1 [facility] for visit Narrative* Diagnostic Procedure Only (Routine) - Closed Specialty Diagnoses / Procedures Referred By Contac t Referred To Contact [facility] Diagnoses Breast abscess Procedures US BREAST LTD RIGHT US BREAST UNI REAL [place] [address] [place] [address] [facility] [address] [place] [phone] Referral ID Status Reason Start Date Expiration Date V isits Requested Visits Authorized [id number] Closed Auto-Generate d Referral 11/02/2023 12/01/2024 1 1 [facility] Summary Purpose Family History No Family History Records Found Grandmother Name Dates Details Family history of [...] and content) DATE CREATED AUTHOR 11/18/2017 [facility] DATE CREATED AUTHOR AUTHOR'S ORGANIZ ATION 10/07/2018 [facility] DATE CREATED AUTHOR AUTHOR'S ORGANIZ ATION 07/20/2019 [employer] DATE CREATED AUTHOR AUTHOR'S ORGANIZ ATION 02/14/2020 [employer] DATE CREATED AUTHOR AUTHOR'S ORGANIZ ATION 03/21/2020 [facility] DATE CREATED AUTHOR AUTHOR'S ORGANIZ ATION 04/29/[address] [facility] DATE CREATED AUTHOR AUTHOR'S ORGANIZ ATION 10/01/2022 [facility] DATE CREATED AUTHOR AUTHOR'S ORGANIZ ATION 04/17/2023 [facility] DATE CREATED AUTHOR AUTHOR'S ORGANIZ ATION 05/04/2023 [facility] DATE CREATED AUTHOR AUTHOR'S ORGANIZ ATION 11/10/2023 [facility] DATE CREATED AUTHOR AUTHOR'S ORGANIZ ATION 01/02/2024 [facility] DATE CREATED AUTHOR AUTHOR'S ORGANIZ ATION 01/22/2024 [facility] Care Teams (unrecognized sec tion and content) Team Status: Inactive Member Role Status Dates Deshawn Rose Attending Provider Active It Systems Manager Relationship Specialty Start Date End Date Jonnathan Pelayo [address] [place] [phone] PCP - General Pediatrics 04/01/14 Deshawn Rose R, DO [address] [facility] [place] [place] [address] Referring TRAINING EXECUTIVE 05/07/23 It Systems Manager Relationship Specialty Start Date End Date Jonnathan Pelayo [address] [place] [phone] PCP - General Pediatrics 04/01/14 Deshawn Rose R, DO [address] [facility] [place] [place] [address] Referring TRAINING EXECUTIVE 05/07/23 It Systems Manager Relationship Specialty Start Date End Date Jonnathan Pelayo [address] [place] [phone] PCP - General Pediatrics 04/01/14 Deshawn Rose R, DO [address] [place] [place] [address] Referring TRAINING EXECUTIVE 05/07/23 It Systems Manager Relationship Specialty Start Date End Date Jonnathan Pelayo [address] [place] [phone] PCP - General Pediatrics 04/01/14 Deshawn Rose R, DO [address] [facility] [place] [phone] Referring Cargo Service Agent 05/07/23 It Systems Manager Relationship Specialty Start Date End Date DanielebillieJonnathan J [address] [place] [phone] PCP - General Pediatrics 04/01/14 Deshawn Rose R, DO [address] [place], [place] [phone] Referring Cargo Service Agent 05/07/23 It Systems Manager Relationship Specialty Start Date End Date DanielebillieJonnathan J [address] [place] [phone] PCP - General Pediatrics 04/01/14 Deshawn Rose R, DO [address] [place] [address] Referring Cargo Service Agent 05/07/23 It Systems Manager Relationship Specialty Start Date End Date DanielebillieJonnathan [address] [place] [phone] PCP - General Pediatrics 04/01/14 Deshawn Rose R, DO [address] [place] [address] Referring Cargo Service Agent 05/07/23 It Systems Manager Relationship Specialty Start Date End Date DanielebillieJonnathan J [address] [place] [phone] PCP - General Pediatrics 04/01/14 Deshawn Rose R, DO [address] [place], [place] [phone] Referring Cargo Service Agent 05/07/23 It Systems Manager Relationship Specialty Start Date End Date Jonnathan Pelayo [address] [place] [phone] PCP - General Pediatrics 04/01/14 Deshawn Rose DO [address] [place], [place] [address] [address] Referring Cargo Service Agent 05/07/23 It Systems Manager Relationship Specialty Start Date End Date Jonnathan Pelayo [address] [place] [phone] PCP - General Pediatrics 04/01/14 Deshawn Rose DO [address] [place] [address] [address] [place], [facility] Referring Cargo Service Agent 05/07/23 It Systems Manager Relationship Specialty Start Date End Date Jonnathan Pelayo [address] [place] [phone] PCP - General Pediatrics 04/01/14 Deshawn Rose DO [address] [place] [address] [place] [address] Referring Cargo Service Agent 05/07/23 It Systems Manager Relationship Specialty Start Date End Date Generic Provider, No Assigned Pcp, [place] [address] PCP - General [employer] 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 11/03/23 It Systems Manager Relationship Specialty Start Date End Date Jonnathan Pelayo [address] [place] [phone] PCP - General Pediatrics 04/01/14 Deshawn Rose, DO [address] [place] [address] Referring Cargo Service Agent 05/07/23 It Systems Manager Relationship Specialty Start Date End Date Jonnathan Pelayo [address] [place] [phone] PCP - General Pediatrics 04/01/14 Deshawn Rose, DO [address] [place] [address] Referring Cargo Service Agent 05/07/23 It Systems Manager Relationship Specialty Start Date End Date Danielebillie Jonnathan Calloway [address] [facility] [place] [phone] PCP - General Pediatrics 04/01/14 Deshawn Rose, DO [address] [place] [address] Referring Cargo Service Agent 05/07/23 It Systems Manager Relationship Specialty Start Date End Date Deshawn Rose DO [address] [place] [address] Referring Cargo Service Agent 05/07/23 It Systems Manager Relationship Specialty Start Date End Date Deshawn Rose DO [address] [place], [place] [phone] Referring Cargo Service Agent 05/07/23 Goals (unrecognized section and content) Goals may be documented in a n alternate section Source Comments (unrecognize d section and content) In the event this informatio n is protected by the Federal Confidentiality of Alcohol and Drug Abuse Patient Records regulations: The Federal rules restrict any use of the information to criminally investigate or prosecute any alcohol or drug abuse patient.[facility] the event this information is protected by the Federal Confidentiality of Alcohol and Drug Abuse Patient Records regulations: The Federal rules restrict any use of the information to criminally investigate or prosecute any alcohol or drug abuse patient.[facility] the event this information is protected by the Federal Confidentiality of Alcohol and Drug Abuse Patient Records regulations: The Federal rules restrict any use of the information to criminally investigate or prosecute any alcohol or drug abuse patient.[facility] the event this information is protected by the Federal Confidentiality of Alcohol and Drug Abuse Patient Records regulations: The Federal rules restrict any use of the information to criminally investigate or prosecute any alcohol or drug abuse patient.[facility] the event this information is protected by the Federal Confidentiality of Alcohol and Drug Abuse Patient Records regulations: The Federal rules restrict any use of the information to criminally investigate or prosecute any alcohol or drug abuse patient.[facility] Hospital[facility] the event this information is protected by the Federal Confidentiality of Alcohol and Drug Abuse Patient Records regulations: The Federal rules restrict any use of the information to criminally investigate or prosecute any alcohol or drug abuse patient.[facility] Hospital[facility] the event this information is protected by the Federal Confidentiality of Alcohol and Drug Abuse Patient Records regulations: The Federal rules restrict any use of the information to criminally investigate or prosecute any alcohol or drug abuse patient.[facility] Hospital[facility] the event this information is protected by the Federal Confidentiality of Alcohol and Drug Abuse Patient Records regulations: The Federal rules restrict any use of the information to criminally investigate or prosecute any alcohol or drug abuse patient.[facility] Hospital[facility] the event this information is protected by the Federal Confidentiality of Alcohol and Drug Abuse Patient Records regulations: The Federal rules restrict any use of the information to criminally investigate or prosecute any alcohol or drug abuse patient.[facility] Hospital[facility] the event this information is protected by the Federal Confidentiality of Alcohol and Drug Abuse Patient Records regulations: The Federal rules restrict any use of the information to criminally investigate or prosecute any alcohol or drug abuse patient.[facility] Hospital[facility] the event this information is protected by the Federal Confidentiality of Alcohol and Drug Abuse Patient Records regulations: The Federal rules restrict any use of the information to criminally investigate or prosecute any alcohol or drug abuse patient.[facility] Hospital[facility] the event this information is protected by the Federal Confidentiality of Alcohol and Drug Abuse Patient Records regulations: The Federal rules restrict any use of the information to criminally investigate or prosecute any alcohol or drug abuse patient.[facility] Hospital[facility] the event this information is protected by the Federal Confidentiality of Alcohol and Drug Abuse Patient Records regulations: The Federal rules restrict any use of the information to criminally investigate or prosecute any alcohol or drug abuse patient.[facility] Hospital[facility] the event this information is protected by the Federal Confidentiality of Alcohol and Drug Abuse Patient Records regulations: The Federal rules restrict any use of the information to criminally investigate or prosecute any alcohol or drug abuse patient.[facility] HospitalIn the event this information is protected by the Federal Confidentiality of Alcohol and Drug Abuse Patient Records regulations: The Federal rules restrict any use of the information to criminally investigate or prosecute any alcohol or drug abuse patient.[facility] HospitalIn the event this information is protected by the Federal Confidentiality of Alcohol and Drug Abuse Patient Records regulations: The Federal rules restrict any use of the information to criminally investigate or prosecute any alcohol or drug abuse patient.[facility] HospitalIn the event this information is protected by the Federal Confidentiality of Alcohol and Drug Abuse Patient Records regulations: The Federal rules restrict any use of the information to criminally investigate or prosecute any alcohol or drug abuse patient.[facility] Hospital[facility] the event this information is protected by the Federal Confidentiality of Alcohol and Drug Abuse Patient Records regulations: The Federal rules restrict any use of the information to criminally investigate or prosecute any alcohol or drug abuse patient.[facility] HospitalIn the event this information is protected by the Federal Confidentiality of Alcohol and Drug Abuse Patient Records regulations: The Federal rules restrict any use of the information to criminally investigate or prosecute any alcohol or drug abuse patient.[facility] Reason for Visit (unrecogniz ed section and content) Reason Comments Breast Problem Reason Comments Established Patient Reason Comments Results Reason Comments Breast Problem Pt has an abscess of the right breast she had drained yesterday, states her harjit drain fell out and is having increased pain and drainage Reason Comments Pre-Op Visit Reason Comments Post Op Scheduled Active and Recently Administ ered Medications (unrecognized section and content) Medication Order 11/01/2023 11/02/2023 11/03/2023 bacitracin ointment 1 Application (COMPLETED) 1 Application, Topical, Once, On Mireya 11/03/23 at 2105, For 1 dose, Apply to: right breast 2120 (Given - Provid er: Cookie Diggs RN - Comment: R breast) diphenhydrAMINE (BENADryl) injection 25 mg (COMPLETED) 25 mg, intravenous, Once, On Mireya 11/03/23 at 2230, For 1 dose, If giving IV push, max rate of 25 mg/min. 2233 (Given - Provid er: Cookie Diggs RN) ibuprofen tablet 800 mg (COMPLETED) 800 mg, oral, Once, On Mireya 11/03/23 at 2140, For 1 dose, May administer with food to reduce GI upset., If ordered PRN for pain, nurse is permitted to administer this medication for higher pain scores based on patient preference? Yes 2146 (Given - Provid er: Cookie Diggs RN) eklkbzxjmxdh-gugonyapik-iwoebich (Zosyn) IV 3.375 g (COMPLETED) 3.375 g, intravenous, at 100 mL/hr, Administer over 0.5 Hours, Once, On Mireya 11/03/23 at 2130, For 1 dose, premix bag, Dosing of this medication varies based on severity of illness. Does this patient have sepsis or concern for sepsis (probable or documented infection plus systemic manifestations of infection)? No, Suspected Indication (Select all that apply): Cellulitis, Skin and Soft Tissue, Indications: Cellulitis, Skin and Soft Tissue 2236 (New Bag - Prov ider: Cookie Diggs RN - Comment: waiting for previous antibiotic to infuse)2312 (Stopped - Provider: Cookie Diggs RN) vancomycin in 0.9 % sodium chl (Vancocin) IVPB 1,000 mg (COMPLETED) 1,000 mg, intravenous, at 200 mL/hr, Administer over 60 Minutes, Once, On Mireya 11/03/23 at 2115, For 1 dose, premix bag, Dosing of this medication varies based on severity of illness. Does this patient have sepsis or concern for sepsis (probable or documented infection plus systemic manifestations of infection)? No, Suspected Indication (Select all that apply): Cellulitis, Skin and Soft Tissue, Indications: Cellulitis, Skin and Soft Tissue 2120 (New Bag - Prov ider: Cookie Diggs RN)2227 (Stopped - Provider: Cookie Diggs RN) PRN Medication Order 11/01/2023 11/02/2023 11/03/2023 oxyCODONE-acetaminophen (Percocet) 5-325 mg per tablet 1 tablet 1 tablet, oral, Every 6 hours PRN, pain severe (7-10), first line, Dispense 4. Take every 6 hours as needed., Starting on Mireya 11/03/23 at 2319, If ordered PRN for pain, nurse is permitted to administer this medication for higher pain scores based on patient preference? Yes 2331 (Given - Provid er: Cookie Diggs RN - Comment: home pack containing 4 tablets sent home with pt) FOR RECORDS PERTAINING TO PATIENTS WHO ARE [...] BE BASED ON THE PRIMARY CLINICAL RECORDS. [email or web address] provides no warranty or guarantee of the accuracy or completeness of information in this document.
== END 2024-02-08 20:05 | disposition home or self-care (01) ==
LOC: LAB 20:04
PROVIDERS: Visit Provider Obstetrics & Gynecology
DX: N64.52 Nipple discharge (principal)
CPT/HCPCS: 87070; 87075

== ENCOUNTER 2024-06-14 13:04 | Outpatient (OUT) | payer BC, SELFPAY ==
--- NOTE | 2024-06-14 13:08 | US_ITS ---
[address] [address] Patient Name: JONG AYERS MRN: [id number] date: 2000 Sex: F Assigned Patient Location: [place] Current Patient Location: [place] Accession/Order Number: [id number] Exam Date: 06/14/2024 13:10 Report Date: 06/14/2024 14:36 At the request of: DEMETRICE JEAN-BAPTISTE Procedure: US OB transvaginal EXAMINATION: US OB transvaginal HISTORY: Missed Menses COMPARISON: No relevant comparison available. FINDINGS: Transvaginal images Choe intrauterine gestation Gestational sac: 3.09 cm, 8 weeks 0 days CRL: 1.05 cm, 7 weeks 1 day Yolk sac: 2.0 mm Heart rate: 157 beats minute Cervix: Closed, 3.6 cm The uterus is normal, anteverted The ovaries are normal. Left corpus luteal cyst Clinical age: 8 weeks 4 days Clinical NHAN: 01/20/2025 Ultrasound age: 7 weeks 1 day Ultrasound NHAN: 01/30/2025 US/US OB transvaginal IMPRESSION: Viable choe intrauterine gestation measuring 7 weeks 1 day Electronically authenticated by: SIMA LEVY Date: 06/14/2024 14:36
== END 2024-06-14 13:05 | disposition home or self-care (01) ==
LOC: US 13:05
PROVIDERS: Visit Provider Obstetrics & Gynecology
DX: Z34.91 Encounter for supervision of normal pregnancy, unspecified, first trimester (principal); Z3A.01 Less than 8 weeks gestation of pregnancy; N92.6 Irregular menstruation, unspecified
CPT/HCPCS: 76817

== ENCOUNTER 2024-08-14 15:14 | Outpatient (OUT) | payer BC, SELFPAY ==
--- OUTSIDE RECORDS SUMMARY | 2024-08-14 15:36 | XMS_ITS | CCD ---
Author Organization [facility] Care Team Providers Care Data Clerk Name Role Phone JONNATHAN PELAYO Unavailable Unavailable CARLIE ARIAS Unavailable Unavailable CLINGMAN, NELA A Unavailable Unavailable CLINGMAN, NELA A Unavailable Unavailable CLINGMAN, NELA A Unavailable Unavailable CLINGMAN, NELA A Unavailable Unavailable CLINGMAN, NELA A Unavailable Unavailable CLINGMAN, NELA A Unavailable Unavailable CLINGMAN, NELA A Unavailable Unavailable JUDD WASHINGTON Unavailable Unavaila ble Hajdari, Astrit H Admitting Unavailable Hajdari, Astrit H Attending Unavailable Carlie Talley~[phone] UNKNOWN Primary Ca re Unavailable Timoteo Cookie Admitting Unavailable Timoteo, Cookie Attending Unavailable Carlie Talley~[phone] UNKNOWN Primary Ca re Unavailable Oro, Digna F Admitting Unavailable Oro, Digna F Attending Unavailable Daisy Jolynn Primary Care Unavailable Jolynn Villa Primary Care Unavailable CHRIS BUSTOS MD Admitting Unavailable CHRIS BUSTOS MD Attending Unavailable CHIRS BUSTOS MD Referring Unavailable Cuco, Avirup Unavailable Unavailable Tripbillie, Jonnathan J Unavailable Unavailable None, No PCP Unavailable Unavailable TripKurt wisenn J Unavailable Unavailable ROSE ., DR SURESH [...] Unavailable MISC, DR OLMEDO Primary Care Unavailable eKv Wolff Consulting Unavailable ROSE ., DR SURESH [...] SURESH Consulting Unavailable Rose, Deshawn Attending Provider Deshawn Rose Admitting Unavailable RoseShelbyy Attending Unavailable Trippe, Jonnathan J Primary Care Provider [phone] Rose DO, Deshawn R Unavailable Trippe, Jonnathan J Primary Care Provider [phone] Generic Provider , No Assigned Pcp Primary Car e Provider Unavailable SHAUNA PATEL Attending Unavailable GENERIC PROVIDER, NO ASSIGNED PCP Primary Care Unavailable TETE MULTANI Referring Unavailabl e Rose DO, Deshawn R Unavailable Unavailable Primary Care Provider Unavailabl e FARIA, NARDA Referring Unavailable TRIPPE, JONNATHAN J Primary Care Unavailable TRIPPE, JONNATHAN J Primary Care Unavailable ROLANDL YOLANDA Referring Unavailable TRIPPE, JONNATHAN J Primary Care Unavailable FARIAKATERINA LUCIAA Attending Unavailable TRIPPE, JONNATHAN J Primary Care Unavailable FARIA, NARDA Referring Unavailable JOSE NELSON Referring Unavailable NORMA NICHOLAS Attending Unavailable TRIPPE, JONNATHAN J Primary Care Unavailable FARIA, NARDA Referring Unavailable TTEE MULTANI Attending Unavailabl e TRIPPE, JONNATHAN J Primary Care Unavailable NARDA FARIA Attending Unavailable TRIPPE, JONNATHAN J Primary Care Unavailable TETE MULTANI Attending Unavailabl e CHICHURA, TETE MURRY Referring Unavailabl e CECH, RETA Attending Unavailable CHICHURA, TETE MURRY Attending Unavailabl e CHICHURA, TETE MURRY Referring Unavailabl e CHICHURA, TETE MURRY Attending Unavailabl e CHICHURA, TETE MURRY Referring Unavailabl e TRIPPE, JONNATHAN Calloway Primary Care Unavailable TRIPBILLIE, JONNATHAN Calloway Primary Care Unavailable NARDA FARIA Attending Unavailable DESHAWN ROSE Attending Unavailable DESHAWN ROSE Attending Unavailable Allergies Allergy Classification Reported Allergen(s) Allergy Type Date of Onset Reaction(s) Facility beeswax (1 source) beeswax Drug Allergy 9 Other: See Comments [facility] (2 sources) bee venom Drug allergy (disorder) [facility] (20 sources) beeswax; Translations: [BEESWAX] Drug Allergy 9 Other: See Comments, Hives, Swelling [facility] Work Phone: (20 sources) Bees; Translations: [BEES] Allergy to substance 3 Swelling [facility] Work Phone: (20 sources) Venom-Honey Bee; Translations: [VENOM-HONEY BEE] Drug Allergy 3 Swelling [facility] Work Phone: (14 sources) Vancomycin; Translations: [VANCOMYCIN] Drug Allergy 4 Hives, Itching, Shortness of breath [facility] 2 Repository (3 sources) Honey bee venom Allergy to substance 3 Swelling [facility] (3 sources) Silver Propensity to adverse reactions 5 Itching, Other, Rash, Swelling [facility] Medications Current Medications Medication Drug Class(es) Dates Sig (Normalized) Sig (Original) acetaminophen 500 mg oral tablet (8 sources) Start: 12-22-2023 take 2 tablets by [...] Yes buPROPion hydrochloride 75 mg oral tablet (20 sources) Aminoketone Start: 04-03-2024 End: 04-03-2025 take 2 tablets by mouth once daily buPROPion (Wellbutrin) 75 MG tablet Indications: Anxiety, generalized (CMS/HCC) Take 2 tablets (150 mg) by mouth Daily 180 tablet 3 04/03/2024 04/03/2025 Active Start: 02-28-2023 End: 02-28-2024 take 2 tablets by mouth in the morning buPROPion (WELLBUTRIN) 75 mg tablet TAKE 2 TABLETS (150 MG) BY MOUTH IN THE MORNING. 02/28/2023 Active Comment on above: TAKE 2 TABLETS (150 MG) BY MOUTH IN THE MORNING. citalopram 20 mg oral tablet (20 sources) Serotonin Reuptake Inhibitor Start: 04-03-2024 End: 04-03-2025 take 1 tablet by mouth once daily citalopram (CeleXA) 20 MG tablet Indications: depression, condition (CMS/HCC) Take 1 tablet (20 mg) by mouth Daily 30 tablet 11 04/03/2024 04/03/2025 Active Start: 02-16-2023 End: 02-16-2024 take 1 tablet by mouth once daily in the morning citalopram (CELEXA) 20 mg tablet Take 20 mg by mouth every morning. 04/18/2023 Active Comment on above: Take 20 mg by mouth every morning. gabapentin 100 mg oral capsule (5 sources) Anti-epileptic Agent Start: End: 4 take 1 capsule by mouth every twenty-four hours as needed gabapentin (NEURONTIN) 100 mg capsule Take 1 capsule by mouth at bedtime as needed (postoperative pain) for up to 5 days. 5 capsule 12/22/2023 02/10/2024 Discontinued (Course of therapy completed) ibuprofen 600 mg oral tablet (12 sources) Nonsteroidal Anti-inflammatory Drug Start: take 1 tablet by mouth every six [...] needed. Take 800 mg by mouth . magnesium oxide 400 mg oral tablet (2 sources) Start: End: take 1 tablet by mouth once daily magnesium oxide (Mag-Ox) 400 MG tablet Indications: Nonintractable headache, unspecified chronicity pattern, unspecified headache type Take 1 tablet (400 mg) by mouth Daily 30 tablet 6 06/21/2024 07/21/2024 Active ondansetron 4 mg oral tablet (3 sources) Serotonin-3 Receptor Antagonist Start: End: take 1 tablet by mouth every six hours for nausea ondansetron (Zofran) 4 MG tablet Indications: Nausea and vomiting in Take 1 tablet (4 mg) by mouth every 6 (six) hours if needed for nausea or vomiting 30 tablet 2 06/21/2024 07/21/2024 Active Completed/Discontinued Medications Medication Drug Class(es) Dates Sig (Normalized) Sig (Original) azithromycin 250 mg oral tablet (1 source) Macrolide Antimicrobial Start: 05-01-2024 End: 06-14-2024 azithromycin (Zithromax Z-Brandin) 250 MG tablet Indications: Upper respiratory tract infection, unspecified type As directed 6 tablet 05/01/2024 06/14/2024 Discontinued (Other) bacitracin zinc 0.5 unt/mg topical ointment (1 source) Start: 11-03-2023 End: 11-03-2023 1 Application, Topical, Once, On Mireya 11/03/23 at 2105, For 1 dose, Apply to: right breast cephalexin 500 mg oral capsule (8 sources) Cephalosporin Antibacterial Start: 02-08-2024 End: 02-15-2024 take 1 capsule by mouth in the morning, then take 1 capsule by mouth in the evening, then take 1 capsule by mouth at bedtime cephalexin (Keflex) 500 MG capsule Indications: Nipple discharge Take 1 capsule (500 mg) by mouth in the morning and 1 capsule (500 mg) in the evening and 1 capsule (500 mg) before bedtime. Do all this for 7 days. 21 capsule 02/08/2024 02/15/2024 Start: 11-02-2023 End: 11-07-2023 take 1 capsule by mouth four times daily cephALEXin (KEFLEX) 500 mg capsule Take 1 capsule by mouth four times daily for 5 days. 20 capsule 0 11/02/2023 11/07/2023 Active cholecalciferol 0.05 mg oral tablet (16 sources) Vitamin D Start: 05-17-2023 End: 12-29-2023 take 1 tablet by mouth once daily cholecalciferol (VITAMIN D-3) 50 mcg (2,000 unit) tablet Take 1 tablet by mouth once daily. 0 05/17/2023 12/29/2023 Discontinued (Discontinued by Patient) Comment on above: Take 1 tablet by [facility] once daily. diphenhydrAMINE (2 sources) Histamine-1 Receptor [...] mg/mL (1 %) injection (XYLOCAINE) 24 hr metFORMIN hydrochloride 500 mg extended release oral tablet (4 sources) Biguanide Start: 02-08-2024 End: 02-07-2025 take 1 tablet by mouth every twenty-four hours at mealtime metFORMIN XR (Glucophage-XR) 500 MG 24 hr tablet Indications: Weight gain Take 1 tablet (500 mg) by mouth in the evening. Take with meals Do not crush, chew, or split. 30 tablet 11 02/08/2024 06/14/2024 Discontinued (Other) 24 hr metoprolol succinate 25 mg extended release oral tablet (3 sources) beta-Adrenergic Andrea take 1 tablet by mouth once daily Metoprolol Succinate ER 25 MG Oral Tablet Extended Release 24 Hour TAKE 1 TABLET DAILY. Quantity: 90 Refills: 3 Active norethindrone 0.35 mg oral tablet (20 sources) Start: 03-21-2023 End: 02-10-2024 take 1 tablet by mouth in the morning norethindrone (Micronor) 0.35 MG tablet Indications: 6 weeks follow-up TAKE 1 TABLET (0.35 MG) BY MOUTH IN THE MORNING 28 tablet 2 06/27/2023 02/08/2024 Discontinued Comment on above: TAKE 1 TABLET (0.35 MG) BY MOUTH IN THE MORNING piperacillin 3000 mg / tazobactam 375 mg [...] Tissue, Indications: Cellulitis, Skin and Soft Tissue Kajwqktf-Cp-Cnl-Fe -FA tab (16 sources) Start: 05-17-2023 End: 12-29-2023 take 1 tablet by mouth once daily Wxyderlk-Cg-Con-Fe- FA tab Take 1 tablet by mouth once daily. 0 05/17/2023 12/29/2023 Discontinued (Course of therapy completed) Start: 05-17-2023 take 1 tablet by yasir th once daily Rckstphj-Hi-Ufu-Fe-FA tab Take 1 tablet by mouth once daily. 0 05/17/2023 Active Comment on above: Take 1 tablet by yasir th once daily. Mwwjflef-Vdl-Gp-FA ( 1 + IRON PO) (3 sources) End: 02-08-2024 Bdatghvh-Tmq-Xe-FA ( 1 + IRON PO) 02/08/2024 Discontinued Multivi t-Min-Fe-FA ( 1 + IRON PO) Active sulfamethoxazole 800 mg / trimethoprim 160 mg oral tablet (3 sources) Dihydrofolate Reductase Inhibitor Antibacterial, Sulfonamide Antimicrobial Sulfamethoxazole-TMP DS 800-160 MG TABS TAKE 1 TABLET TWICE DAILY UNTIL FINISHED. Refills: 0 Active 200 ml vancomycin 5 mg/ml injection (1 source) Glycopeptide Antibacterial Start: 11-03-19 End: 11-03-19 1,000 mg, intravenous, at 200 mL/hr, Administer [...] Date Documented Da te Episodic/Chronic Anxiety disorders (20 sources) Anxiety disorder; Translations: [Anxiety disorder, unspecified] [...] Onset: 03-23-2023 05-10-2023 Episodic Other acquired deformities (20 sources) Acquired scoliosis; Translations: [Scoliosis, unspecified] Onset: 05-17-2023 05-17-2023 Chronic Other complications of ; puerperium affecting management of mother (1 source) Lactating adenoma of breast; Translations: [Other disorders of ] 09-13-2023 Episodic Other endocrine disorders (2 sources) Polycystic ovary syndrome; Translations: [Polycystic ovarian syndrome] 02-08-2024 Chronic Other female genital disorders (1 source) Other specified noninflammatory disorders of vagina; Translations: [OTH SPEC NONINFLAMMATORY D/O VAGINA] Onset: 08-21-2022 Episodic Other gastrointestinal disorders (20 sources) Irritable bowel syndrome; Translations: [Irritable bowel syndrome without diarrhea] Onset: 05-17-2023 05-17-2023 Chronic Other nutritional; endocrine; and metabolic disorders (10 sources) Obese class I; Translations: [Obesity, unspecified] Onset: 12-22-2023 12-22-2023 Chronic Other nutritional; endocrine; and metabolic disorders (2 sources) Weight increased; Translations: [Abnormal weight gain] 02-08-2024 Episodic Other and delivery including normal (20 [...] unspecified] Onset: 02-09-2023 Episodic Residual codes; unclassified (2 sources) Gestation period, 11 weeks; Translations: [11 weeks gestation of ] 07-12-2024 Episodic Past or Other Problems Problem Classification Problem Date Documented Da te Episodic/Chronic Abdominal pain (4 sources) Unspecified abdominal pain; Translations: [Periumbilical pain] Onset: 06-21-2017 Episodic Acute posthemorrhagic anemia (20 sources) Acute posthemorrhagic anemia; Translations: [Acute posthemorrhagic anemia] Onset: 02-08-2023 Resolved: 12-29-2023 05-17-2023 Episodic Cardiac dysrhythmias (20 sources) Sinus tachycardia; Translations: [Tachycardia, unspecified] Onset: [...] breast] Onset: 09-13-2023 Episodic Other complications of (20 sources) Finding related to ; Translations: [Other specified related conditions, third trimester] Onset: 02-08-2023 05-17-2023 Episodic Other female genital disorders (20 sources) Noninflammatory disorder of the vagina; Translations: [Other specified noninflammatory disorders of vagina] Onset: 08-21-2022 05-17-2023 Episodic Residual codes; unclassified (7 sources) History of syncope; Translations: [Personal history of other specified conditions] Onset: 12-29-2023 12-29-2023 Episodic Spondylosis; intervertebral disc disorders; other back problems (20 sources) Backache; Translations: [Dorsalgia, unspecified] Onset: 05-13-2014 05-13-2014 Episodic Syncope (20 sources) Syncope and collapse; Translations: [Syncope and collapse] Onset: 05-17-2023 05-17-2023 Episodic Urinary tract infections (4 sources) Acute cystitis with hematuria; Translations: [Acute pyelonephritis] Onset: 06-21-2017 Episodic NEGATED: Highlighted row has not occurred!Residual codes; unclassified (8 sources) Disease Episodic Results Test Name Value Interpretation Reference Range Facility Urinalysis macro (dipstick) panel (U)on 07-12-2024 Bilirubin, UA Negative Negative - 4(70) +++ mg/dL [facility] Blood, UA Negative Negative - 50 Ruel/mcL [facility] Clarity, UA Clear [facility] Color, UA Yellow [facility] Glucose, UA Negative Negative - 1999(110) ++++ mg/dL [facility] Interpretation and review of laboratory results Normal [facility] Ketones, UA Negative Negative - 160(16) ++++ mg/dL [facility] Leukocytes, UA Negative Negative - 500+++ Coretta/mcL [facility] Nitrite, UA Negative Negative - Positive [facility] pH, UA 6 5 - 9 [facility] Protein, UA Negative Negative - 1999(20) ++++ mg/dL [facility] Spec Grav, UA 1.01 1 - 1.03 [facility] Urobilinogen, UA 0.2 0.2 - 12 mg/dL [facility] HCG ( test) Ql (U)o n 06-14-2024 Interpretation and review of laboratory results Abnormal [facility] Preg Test, Ur Positive Negative [facility] Urinalysis macro (dipstick) panel (U)on 06-14-2024 Bilirubin, UA Negative Negative - 4(70) +++ mg/dL [facility] Blood, UA Negative Negative - 50 Ruel/mcL [facility] Clarity, UA Clear [facility] Color, UA Yellow [facility] Glucose, UA Negative Negative - 1999(110) ++++ mg/dL [facility] Interpretation and review of laboratory results Normal [facility] Ketones, UA Negative Negative - 160(16) ++++ mg/dL [facility] Leukocytes, UA Negative Negative - 500+++ Coretta/mcL [facility] Nitrite, UA Negative Negative - Positive [facility] pH, UA 6.5 5 - 9 [facility] Protein, UA Negative Negative - 1999(20) ++++ mg/dL [facility] Spec Grav, UA 1.015 1 - 1.03 [facility] Urobilinogen, UA 1.0 0.2 - 12 mg/dL [facility] CNOVon 05-18-2024 CNOV Office Visit (GYNMN) YAEL AYERS ([id number]) 2000 F Date Time Provider Department 05/18/24 9:00 AM TETE MULTANI GYNMN During your visit today, we recorded the following information about you: Blood pressure Weight 129/81 87.4 kg Tete Multani MD 05/18/2024 10:03 AM Signed [facility] Department of Breast Surgery [facility] POST OPERATIVE FOLLOW-UP SERVICE DATE: 05/18/2024 DATE OF LAST VISIT: 05/11/24 SUBJECTIVE: Yael Ayers is a 24 year old female who has a past medical history of Asthma and Syncope (2019). and a history of a RIGHT breast infection while and subsequent excision of a lactating adenoma. At her last visit we discussed the following plan: She is concerned about RIGHT breast pain and scar tissue in the lower pole of her breast. We will obtain a RIGHT breast US and per her preference will see her in person on the same day to review results. Today she reports she continues to have RIGHT breast pain. BREAST HISTORY: Patient palpated a right inferior breast mass in October or November 2022 while in 3rd trimester. 01/2023 - Delivered baby Duncan mass grew in size February 2023 ([facility]) Right breast US showing a 2.2 x 1.7 x 0.9 cm mass at 6:00. 04/11/2023 ([facility] [place] Right breast US-guided CNBx showed findings consistent [...] to cipro, levo, bactrim 11/08/23 - Bactrim 01/09/24 - RIGHT breast palpation guided excisional biopsy - Benign breast parenchyma including prominent nodular adenosis with superimposed secretory/lactational change ( lactating adenoma ). 05/18/2024 - RIGHT breast US - No findings to correlate with area of clinical concern. BIRADS 2. OBJECTIVE: PHYSICAL EXAM: Physical Exam Constitutional: General: She is not in acute distress. Appearance: Normal appearance. HENT: Head: Normocephalic and atraumatic. Eyes: Pupils: Pupils are equal, round, and reactive to light. Pulmonary: Effort: Pulmonary effort is normal. Musculoskeletal: General: Normal range of motion. Skin: General: Skin is warm and dry. Neurological: General: No focal deficit present. Mental Status: She is alert and oriented to person, place, and time. Mental status is at baseline. Gait: Gait normal. Psychiatric: Mood and Affect: Mood normal. Behavior: Behavior normal. Thought Content: Thought content normal. Judgment: Judgment normal. IMAGING REPORT: Last Breast Ultrasound US BREAST LTD RIGHT Exam End: 05/18/2024 9:00 AM (Final result) Narrative: * * *Final Report* * * DATE OF EXAM: May 18 2024 9:00AM [facility] [place] US BREAST LTD RT / PROCEDURE REASON: Breast pain * * * * Physician Interpretation * * * * RESULT[address] [place] [id number] #[id number] - [facility] US BREAST LTD RT HISTORY: Patient is 24 years old and is seen for diagnostic evaluation of diffuse pain in the right breast. COMPARISON STUDIES: The (more content not included)... Normal [facility] US BREAST LTD RTon 05-18 [place] US BREAST LTD RT * * *Final Report* * * DATE OF EXAM: May 18 2024 9:00AM [facility] [place] US BREAST LTD RT / PROCEDURE REASON: Breast pain * * * * Physician Interpretation * * * * RESULT: [place] [id number] [facility] DESK [address] [address] #[id number] - [facility] US BREAST LTD RT HISTORY: Patient is 24 years old and is seen for diagnostic evaluation of diffuse pain in the right breast. COMPARISON STUDIES: The present examination has been compared to prior imaging studies dated 06/14/2023 (ultrasound), 09/13/2023 (ultrasound), 11/02/2023 (ultrasound) and 01/02/2024 (ultrasound). ULTRASOUND TECHNIQUE: Targeted ultrasound of the indicated area was performed. Escalera scale images were saved. ULTRASOUND FINDINGS: Finding 1: There are no suspicious sonographic findings to correspond with the focal pain in the upper outer quadrant of the right breast. Finding 2: There are no suspicious sonographic findings to correspond with the focal pain in the right breast at 6 o'clock, 1 cm from the nipple. IMPRESSION: Finding 1: There is no suspicious imaging finding to correspond with the focal pain in the upper outer quadrant of the right breast. Finding 2: Area in the right breast at 6 o'clock, 1 cm from the nipple is benign. There is no suspicious imaging finding to correspond with the area of clinical concern. Clinical correlation and follow-up is recommended. BI-RADS Category 2: Benign Interpreting Radiologist: Abel Moody M.D. Electronically signed on: 05/18/2024 Rubber Flap Cutter: ARAM Transcribe Date/Time: May 18 2024 9:00A Dictated by : ABEL MOODY MD This examination was interpreted and the report reviewed and electronically signed by: ABEL MOODY MD on May 18 2024 9:17AM EST [id number] Normal [facility] US Breast - right limitedon 05-18-2024 IMPRESSION: Finding 1: There is no suspicious imaging finding to correspond with the focal pain in the upper outer quadrant of the right breast. Finding 2: Area in the right breast at 6 o'clock, 1 cm from the nipple is benign. There is no suspicious imaging finding to correspond with the area of clinical concern. Clinical correlation and follow-up is recommended. BI-RADS Category 2: Benign Interpreting Radiologist: Abel Moody M.D. Electronically signed on: 05/18/2024 Rubber Flap Cutter: ARAM Transcribe Date/Time: May 18 2024 9:00A Dictated by : ABEL MOODY MD This examination was interpreted and the report reviewed and electronically signed by: ABEL MOODY MD on May 18 2024 9:17AM EST DIVISION OF RADIOLOGY * * *Final Report* * * DATE OF EXAM: May 18 2024 9:00AM [place] 0594 - [facility] BREAST LTD RT / PROCEDURE REASON: Breast pain * * * * Physician Interpretation * * * * RESULT: [place] [address] #[id number] - [facility] BREAST [facility] [place] RT HISTORY: Patient is 24 years old and is seen for diagnostic evaluation of diffuse pain in the right breast. COMPARISON STUDIES: The present examination has been compared to prior imaging studies dated 06/14/2023 (ultrasound), 09/13/2023 (ultrasound), 11/02/2023 (ultrasound) and 01/02/2024 (ultrasound). ULTRASOUND TECHNIQUE: Targeted ultrasound of the indicated area was performed. Escalera scale images were saved. ULTRASOUND FINDINGS: Finding 1: There are no suspicious sonographic findings to correspond with the focal pain in the upper outer quadrant of the right breast. Finding 2: There are no suspicious sonographic findings to correspond with the focal pain in the right breast at 6 o'clock, 1 cm from the nipple. DIVISION OF RADIOLOGY Provider, [facility] - 05/18/2024 * * *Final Report* * * DATE OF EXAM: May 18 2024 9:00AM [facility] 0594 - [facility] [place] BREAST 99tests RT / PROCEDURE REASON: Breast pain * * * * Physician Interpretation * * * * RESULT: [place] [address] #[id number] - [facility] BREAST 99tests RT HISTORY: Patient is 24 years old and is seen for diagnostic evaluation of diffuse pain in the right breast. COMPARISON STUDIES: The present examination has been compared to prior imaging studies dated 06/14/2023 (ultrasound), 09/13/2023 (ultrasound), 11/02/2023 (ultrasound) and 01/02/2024 (ultrasound). ULTRASOUND TECHNIQUE: Targeted ultrasound of the indicated area was performed. Escalera scale images were saved. ULTRASOUND FINDINGS: Finding 1: There are no suspicious sonographic findings to correspond with the focal pain in the upper outer quadrant of the right breast. Finding 2: There are no suspicious sonographic findings to correspond with the focal pain in the right breast at 6 o'clock, 1 cm from the nipple. IMPRESSION IMPRESSION: Finding 1: There is no suspicious imaging finding to correspond with the focal pain in the upper outer quadrant of the right breast. Finding 2: Area in the right breast at 6 o'clock, 1 cm from the nipple is benign. There is no suspicious imaging finding to correspond with the area of clinical concern. Clinical correlation and follow-up is recommended. BI-RADS Category 2: Benign Interpreting Radiologist: Abel Moody M.D. Electronically signed on: 05/18/2024 Rubber Flap Cutter: ARAM Transcribe Date/Time: May 18 2024 9:00A Dictated by : ABEL MOODY MD This examination was interpreted and the report reviewed and electronically signed by: ABEL MOODY MD on May 18 2024 9:17AM EST [facility] Radiology Study observation (narrative) [facility] US Breast - right limitedOrd ered By: [facility] Provider on 05-18-2024 [facility] CNOVon 05-11-2024 CNOV Office Visit (BRCRMN ) YAEL AYERS ([id number]) 2000 F Date Time Provider Department 05/11/24 3:40 PM TETE MULTANI During your visit today, we recorded the following information about you: Tete Multani MD 05/11/2024 3:50 PM Signed [facility] [place] Department of Breast Surgery [facility] POST OPERATIVE FOLLOW-UP SERVICE DATE: 05/11/2024 DATE OF LAST VISIT: 01/16/24 SUBJECTIVE: Yael Ayers is a 24 year old female who has a past medical history of Asthma and Syncope (2019). and a history of a RIGHT breast infection while and subsequent excision of a lactating adenoma. She denies any breast masses, nipple inversion, breast skin changes. Her RIGHT breast has had sharp stabbing pain in the whole breast lasting for a few minutes at minimum. She massages it which does not help. She has not tried any medication for this pain. She also notes scar tissue in her breast. She also notes drainage from her nipple. She had a URI two weeks ago. BREAST HISTORY: Patient palpated a right inferior breast mass in October or November 2022 while in 3rd trimester. 01/2023 - Delivered baby Duncan mass grew in size February 2023 ([facility]) Right breast US showing a 2.2 x 1.7 x 0.9 cm mass at 6:00. 04/11/2023 ([facility] [place] Right breast US-guided CNBx showed findings consistent [...] follow up of 7:00 lesion recommended. 10/11/23 ([facility]) - RIGHT breast US guided CNB at [...] to cipro, levo, bactrim 11/08/23 - Bactrim 01/09/24 - RIGHT breast palpation guided excisional biopsy - Benign breast parenchyma including prominent nodular adenosis with superimposed secretory/lactational change ( lactating adenoma ). OBJECTIVE: PHYSICAL EXAM: Physical Exam Constitutional: General: She is not in acute distress. Appearance: Normal appearance. HENT: Head: Normocephalic and atraumatic. Eyes: Pupils: Pupils are equal, round, and reactive to light. Pulmonary: Effort: Pulmonary effort is normal. Chest: Breasts: Right: No swelling, bleeding, inverted nipple, mass, nipple discharge, skin change or tenderness. Left: [...] NA Assessment ASSESSMENT: Yael Ayers is a 24 year old female who has a past medical history of Asthma and Syncope (2019). and a history of a RIGHT breast infection while and subsequent excision of a lactating adenoma. She is concerned abo (more content not included)... Normal [facility] CNOVon 02-10-2024 CNOV Office Visit (BRCRCA ) YAEL AYERS ([id number]) 2000 F Date Time Provider Department 02/10/24 8:00 AM RETA SANFORD During your visit today, we recorded the following information about you: Temperature Pulse Respiration Blood pressure 97.6 degrees 79/minute 18/minute 123/80 Weight 84.3 kg Reta Sanford APRN.PUBLIC ADDRESS SYSTEM OPERATOR 02/10/2024 9:02 AM Signed BREAST POST OPERATIVE FOLLOW-UP SERVICE DATE: 02/09/2024 SURGERY DATE: 01/09/2024 SUBJECTIVE: Yael Ayers, 23 year old female presents today status post right breast excisional biopsy with Dr. Multani. She was healing well from surgery but states a couple weeks ago she noted a ball in her right breast near her incision. She states the incision is well healed and has no concerns with that. She denies any fever, chills or other signs of infection. She was seen by her OBGYN and states during her exam when the breast was pushed on there was a milky/yellow discharge from the right nipple. Her OBGYN sent in an antibiotic for her to start. She does have tenderness with palpation of the ball as well as generalized breast pain. PATHOLOGY: SURGICAL PATHOLOGY: [id number] Order: [id number] Collected 01/09/2024 1:56 PM Status: Final result Visible to patient: Yes (seen) Dx: Mass of right breast, unspecified joo... 0 Result Notes 1 Patient Communication Component FINAL DIAGNOSIS A. Breast, right, at 6:00, #1, excisional biopsy: ---Benign breast parenchyma including prominent nodular adenosis with superimposed secretory/lactational change ( lactating adenoma ). B. Breast, right, at 3:00, #2, excisional biopsy: ---Benign breast parenchyma including adenosis with superimposed secretory/lactational change. CTIVE: PHYSICAL EXAM: Right partial circumareolar incision is well healed with no signs of infection. There is a palpable area beneath the incision that is likely scar tissue. No other concerns within the breast. Nipple areola complex appears normal, there is no nipple discharge noted on exam. Assessment ASSESSMENT: Yael Ayers, 23 year old female, status post right breast excisional biopsy. Approximately two weeks ago she noted a ball in her right breast beneath her incision. She was seen by her OBGYN and during the exam when the breast was pushed on there was a white/yellow discharge from the nipple. Her OBGYN sent in an antibiotic for her to begin. She denies any fever or chills, she does have pain with palpation of the ball as well as a generalized breast pain. We discussed her incision looks well healed without any sign of infection. Advised that nipple discharge with manipulation was not something concerning and the ball she is feeling is scar tissue from her surgery. We reviewed using gentle massage to the is area to help it soften up over time. We also reviewed common reasons for breast pain and ways to help alleviate it such as; wearing a supportive bra, over the counter pain reliever and warm or cold compresses. She is already scheduled for a follow up with Norma ARMSTRONG in March but will reach out sooner with any concerns. PLAN: Breast awareness discussed Discussed wound healing and use of gentle massage to help soften scar tissue Try warm or cold compresses for the discomfort, over the counter pain reliever and advised to wear a good supportive bra for comfort. Follow up in 2 months as previously advised or sooner with any concerns All questions were answered; patient has no further concerns. Reta Sanford APRN.Tess Reeves LPN 02/10/2024 8:33 AM Signed Additional intake questions: Has the patient had fever, nausea, vomiting, diarrhea, constipation, fatigue for > 1 week? No Does the patient have a decreased appetite? No Does patient want to see a Primer Inserting Machine Operator? No (yes to any of above refer patient to schedulers for dietitian appointment) ) Does patient have any new or increased numbness or tingling of extremities? No Is patient interested in fertility information? No Does patient need any prescription refills? No Does patient have an advanced directive in place? No, Patient refused referral to Social Work or Resource Center Electronically Signed By: Tess Thayer LPN Allergies As of Date: 02/10/2024 Noted Allergy Reaction VENOM-HONEY BEE 05/17/2023 7 - Swelling BEES 04/11/2023 7 - Swelling BEESWAX 11/10/2018 14 - Other: See Comments VANCOMYCIN 11/07/2023 4 - Hives Date Reviewed: 01/16/2024 Reviewed by: Sharmin Hodges MA - Fully Assessed Primary Visit Diagnosis:Breast pain [N64.4] Other Visit Diagnosis:Mass of lower inner quadrant of right breast [N63.14] Prescriptions as of 02/10/2024 - acetaminophen (TYLENOL EXTRA STRENGTH) 500 mg tablet Take 2 tablets by mouth every 6 h (more content not included)... Normal [facility] ALL CBC WITH AUTO DIFFon BASOPHILS ABSOLUTE AUTO 0.1 [facility] Basophils/100 WBC (Bld) 0.5 % 0.2 - 2.0 % [facility] Eosinophils/100 WBC (Bld) 1.2 % 0.9 - 7.0 % [facility] Erythrocyte distribution width (RBC) [Ratio] 13.1 % 11.0 - 15.0 % [facility] Hematocrit (Bld) [Volume fraction] 38.2 % 36.0 - 48.0 % [facility] Hemoglobin (Bld) [Mass/Vol] 12.7 g/dL 12.0 - 16.0 g/dL [facility] IMMATURE GRANULOCYTES ABS AUTO 0.02 [facility] Immature granulocytes/100 WBC (Bld) 0.2 % 0.0 - 0.5 % [facility] LYMPHOCYTES ABSOLUTE AUTO 2.8 [facility] Lymphocytes/100 WBC (Bld) 27.3 % 20.5 - 60.0 % [facility] MCH (RBC) [Entitic mass] 28.2 pg 26.7 - 34.0 pg [facility] MCHC (RBC) [Mass/Vol] 33.2 g/dL 29.9 - 35.2 g/dL [facility] MCV (RBC) [Entitic vol] 84.9 fL 81.0 - 99.0 fL [facility] MONOCYTES ABSOLUTE AUTO 0.8 [facility] Monocytes/100 WBC (Bld) 8.2 % 1.7 - 12.0 % [facility] NEUTROPHILS ABSOLUTE AUTO 6.4 [facility] Neutrophils/100 WBC (Bld) 62.6 % 43.0 - 75.0 % [facility] Platelet mean volume (Bld) [Entitic vol] 10.3 fL 9.5 - 13.5 fL [facility] TBH EO # 0.1 [facility]H PLT 264 [facility] RBC 4.50 [facility] WBC 10.2 [facility] CLINISYNC [facility] CNOVon 01-16-2024 CNOV Office Visit (BRCRMN ) YAEL AYERS ([id number]) 2000 F Date Time Provider Department 01/16/24 9:30 AM NORMA NICHOLAS ANGELAAR During your visit today, we recorded the [...] Norma Nicholas PA-C Referring Provider: JOSE NELSON [[id number]] Allergies As of Date: 01/16/2024 Noted Allergy [...] conditions, t* (more content not included)... Normal [facility] ANES POSTPROC EVALon 024 ANES POSTPROC EVAL HNO ID: [id number] Author: VASU BARRY MD Service: Anesthesiology Author Type: Anesthesiologist Type: Anesthesia Postprocedure Evaluation Filed: 01/09/2024 16:11 Note Text: POST ANESTHESIA EVALUATION NOTE : 2000 Procedure Summary Date: 01/09/24 Room / Location: [address] Anesthesia Start: 1334 Anesthesia Stop: 1427 [...] January 09, 2024 TIME: 4:11 PM CSN: [id number] Normal [facility] ANES PRE-OPon 01-09-2024 ANES PRE-OP HNO ID: [id number] Author: VASU BARRY MD Service: Anesthesiology Author Type: Anesthesiologist Type: Anesthesia Preprocedure Evaluation Filed: 01/09/2024 13:15 Note Text: ANESTHESIOLOGY DAY OF SURGERY NOTE : 2000 Procedure Information Date/Time: 01/09/24 1350 Procedure: RIGHT PALPATION EXCISIONAL BIOPSY (Right: Breast) Location: [address] Surgeons: Tete Multani MD Estimated body [...] and consent discussed: yes. Patient / Responsible Constitution Party agrees to proceed: yes Patient / [...] January 09, 2024 TIME: 1:14 PM CSN: [id number] Normal [facility] OPERATIVE NOon 01-09-2024 OPERATIVE NO HNO ID: [id number] Author: TETE MULTANI MD Service: General Surgery Author Type: Physician Type: Operative Report Filed: 01/09/2024 14:19 Note Text: OPERATIVE/PROCEDURE REPORT LOG ID: [id number] SURGERY DATE: 01/09/2024 Incision/Procedure Start Time: 1:51 PM Incision Close/Procedure End Time: 2:17 PM Surgeon(s) and Glass Tinter(s): Surgeon(s) and Role: * Tete Multani MD - Primary Nurse Practitioner: Reta Sanford APRN.PUBLIC ADDRESS SYSTEM OPERATOR SURGERY/PROCEDURES: RIGHT breast palpation guided excisional biopsy [...] assistance. No qualified resident/fellow was available. Physician Glass Tinter assisted with retraction , under direct supervision and the remainder of the procedure was performed by the primary surgeon/proceduralist with assistance. SIGNATURE: Tete Multani MD PATIENT NAME: Yael Ayers DATE: 01/09/2024 TIME: 2:19 PM PAGER/CONTACT #: [phone] Normal [facility] SURGICAL PATHOLOGYon 024 CASE REPORT Normal [facility] Comment on above: Order Comment: Jacobi elle Type: TISSUE SPECIMENOrdering Facility: [facility] Address: [address] [place] [address] Result Comment: Surg [facility] Pathology Report Case: [id number] Authorizing Provider: Tete Multani MD Collected: 01/09/2024 01:56 PM Ordering Location: Ambulatory Surgery Received: 01/09/2024 03:27 PM Pathologist: Keith Fam MD Specimens: A) - Breast, Right, Excision of Lesion, right breast excisional biopsy, 6 oclock unoriented B) - Breast, Right, Excision of Lesion, right breast excisional biopsy #2, 3 oclock unoriented Performed By: #### S ####[facility] LABCLIA [id number] [place] [address] [place] CLINICAL HISTORY Normal [facility] Comment on above: Order Comment: Speci men Type: TISSUE SPECIMENOrdering Facility: [facility] Address: [address] [place] [address] Result Comment: Pre- op diagnosis: Mass of right breast, unspecified quadrant [N63.10] Performed By: #### S ####[facility] LABCLIA [id number] [place] [address] [place] FINAL DIAGNOSIS Normal [facility] Comment on above: Order Comment: Speci men Type: TISSUE SPECIMENOrdering Facility: [facility] Address: [address] [place] [address] Result Comment: A. B reast, right, at 6:00, #1, excisional biopsy: ---Benign breast parenchyma including prominent nodular adenosis with superimposed secretory/lactational change ( lactating adenoma ). B. Breast, right, at 3:00, #2, excisional biopsy: ---Benign breast parenchyma including adenosis with superimposed secretory/lactational change. Performed By: #### S ####[facility] LABCLIA [id number] [place] [address] [place] FINAL PERFORMING LAB Normal [facility] Comment on above: Order Comment: Speci men Type: TISSUE SPECIMENOrdering Facility: [facility] Address: [address] [place] [address] Result Comment: Diag nostic interpretation performed at [facility], [address] [place] [address] CLIA# [id number] Apparel Cutter: Chano Casillas M.D. Performed By: #### S ####[facility] LABCLIA [id number] [address] [place] GROSS DESCRIPTION Normal [facility] Comment on above: Order Comment: Speci men Type: TISSUE SPECIMENOrdering Facility: [facility] Address: [address] [place] [address] Result Comment: A. B reast, Right, Excision [...] 2024 9:30 AM [place] [address] Performed By: #### S ####[facility] LABCLIA [id number] [place] [address] [place] CBC W Auto Differential pane l (Bld)on 12-30-2023 Basophils (Bld) [#/Vol] 0.04 10*3/uL Normal <0.11 [facility] Comment on above: Order Comment: Speci men Type: BLOOD SPECIMEN [facility] Address: [address] [place] [address] Performed By: #### 5 7021-8 #### [facility] CLIA [id number] [address] [place] [address] [place] Basophils/100 WBC (Bld) 0.4 % Normal [facility] Comment on above: Order Comment: Speci men Type: BLOOD SPECIMEN [facility] Address: [address] [place] [address] Performed By: #### 5 7021-8 #### [facility] CLIA [id number] [address] [place] [address] [place] Differential cell count method Nom (Bld) Auto Normal [facility] Comment on above: Order Comment: Speci men Type: BLOOD SPECIMEN [facility] Address: [address] [place] [address] Performed By: #### 5 7021-8 #### [facility] CLIA [id number] [address] [place] [address] [place] Eosinophils (Bld) [#/Vol] 0.12 10*3/uL Normal <0.46 [facility] Comment on above: Order Comment: Speci men Type: BLOOD SPECIMEN [facility] Address: [address] [place] [address] Performed By: #### 5 7021-8 #### [facility] CLIA [id number] [address] [place] [address] [place] Eosinophils/100 WBC (Bld) 1.3 % Normal [facility] Comment on above: Order Comment: Speci men Type: BLOOD SPECIMEN [facility] Address: [address] [place] [address] Performed By: #### 5 7021-8 #### [facility] CLIA [id number] [address] [place] [address] [place] Erythrocyte distribution width (RBC) [Ratio] 13.3 % Normal 11.5-15.0 [facility] Comment on above: Order Comment: Speci men Type: BLOOD SPECIMEN [facility] Address: [address] [place] [address] Performed By: #### 5 7021-8 #### [facility] CLIA [id number] [address] [place] [address] [place] Hematocrit (Bld) [Volume fraction] 41.7 % Normal 36.0-46.0 [facility] Comment on above: Order Comment: Speci men Type: BLOOD SPECIMEN [facility] Address: [address] [place] [address] Performed By: #### 5 7021-8 #### [facility] CLIA [id number] [address] [place] [address] [place] Hemoglobin (Bld) [Mass/Vol] 13.3 g/dL Normal 11.5-15.5 [facility] Comment on above: Order Comment: Speci men Type: BLOOD SPECIMEN [facility] Address: [address] [place] [address] Performed By: #### 5 7021-8 #### [facility] CLIA [id number] [address] [place] [address] [place] Immature granulocytes (Bld) [#/Vol] 0.03 10*3/uL Normal <0.10 [facility] Comment on above: Order Comment: Speci men Type: BLOOD SPECIMEN [facility] Address: [address] [place] [address] Performed By: #### 5 7021-8 #### [facility] CLIA [id number] [address] [place] Immature granulocytes/100 WBC (Bld) 0.3 % Normal [facility] Comment on above: Order Comment: Speci men Type: BLOOD SPECIMEN [facility] Address: [address] [place] [address] Performed By: #### 5 7021-8 #### [facility] CLIA [id number] [address] [place] [address] [place] Lymphocytes (Bld) [#/Vol] 2.99 10*3/uL Normal 1.00-4.00 [facility] Comment on above: Order Comment: Speci men Type: BLOOD SPECIMEN [facility] Address: [address] [place] [address] Performed By: #### 5 7021-8 #### [facility] CLIA [id number] [address] [place] [address] [place] Lymphocytes/100 WBC (Bld) 32.9 % Normal [facility] Comment on above: Order Comment: Speci men Type: BLOOD SPECIMEN [facility] Address: [address] [place] [address] Performed By: #### 5 7021-8 #### [facility] CLIA [id number] [address] MCH (RBC) [Entitic mass] 27.6 pg Normal 26.0-34.0 [facility] Comment on above: Order Comment: Speci men Type: BLOOD SPECIMEN [facility] Address: [address] [place] [address] Performed By: #### 5 7021-8 #### [facility] CLIA [id number] [address] MCHC (RBC) [Mass/Vol] 31.9 g/dL Normal 30.5-36.0 [facility] Comment on above: Order Comment: Speci men Type: BLOOD SPECIMEN [facility] Address: [address] [place] [address] Performed By: #### 5 7021-8 #### [facility] CLIA [id number] [address] MCV (RBC) [Entitic vol] 86.5 fL Normal 80.0-100.0 [facility] Comment on above: Order Comment: Speci men Type: BLOOD SPECIMEN [facility] Address: [address] [place] [address] Performed By: #### 5 7021-8 #### [facility] CLIA [id number] [address] Monocytes (Bld) [#/Vol] 0.78 10*3/uL Normal <0.87 [facility] Comment on above: Order Comment: Speci men Type: BLOOD SPECIMEN [facility] Address: [address] [place] [address] Performed By: #### 5 7021-8 #### [facility] CLIA [id number] [address] Monocytes/100 WBC (Bld) 8.6 % Normal [facility] Comment on above: Order Comment: Speci men Type: BLOOD SPECIMEN [facility] Address: [address] [place] [address] Performed By: #### 5 7021-8 #### [facility] CLIA [id number] [address] [place] [address] [place] Neutrophils (Bld) [#/Vol] 5.12 10*3/uL Normal 1.45-7.50 [facility] Comment on above: Order Comment: Speci men Type: BLOOD SPECIMEN [facility] Address: [address] [place] [address] Performed By: #### 5 7021-8 #### [facility] CLIA [id number] [address] Neutrophils/100 WBC (Bld) 56.5 % Normal [facility] Comment on above: Order Comment: Speci men Type: BLOOD SPECIMEN [facility] Address: [address] [place] [address] Performed By: #### 5 7021-8 #### [facility] CLIA [id number] [address] [place] [address] [place] Nucleated RBC (Bld) [#/Vol] 10*3/uL Normal <0.01 [facility] Comment on above: Order Comment: Speci men Type: BLOOD SPECIMEN [facility] Address: [address] [place] [address] Performed By: #### 5 7021-8 #### [facility] CLIA [id number] [address] Nucleated RBC/100 WBC (Bld) [Ratio] 0.0 /100 WBC Normal [facility] Comment on above: Order Comment: Speci men Type: BLOOD SPECIMEN [facility] Address: [address] [place] [address] Performed By: #### 5 7021-8 #### [facility] CLIA [id number] [address] [place] Platelet mean volume (Bld) [Entitic vol] 10.3 fL Normal 9.0-12.7 [facility] Comment on above: Order Comment: Speci men Type: BLOOD SPECIMEN [facility] Address: [address] [place] [address] Performed By: #### 5 7021-8 #### [facility] CLIA [id number] [address] OF [place] Platelets (Bld) [#/Vol] 289 10*3/uL Normal 150-400 [facility] Comment on above: Order Comment: Speci men Type: BLOOD SPECIMEN [facility] Address: [address] [place] [address] Performed By: #### 5 7021-8 #### [facility] CLIA [id number] [address] OF [place] RBC (Bld) [#/Vol] 4.82 10*6/uL Normal 3.90-5.20 [facility] Comment on above: Order Comment: Speci men Type: BLOOD SPECIMEN [facility] Address: [address] [place] [address] Performed By: #### 5 7021-8 #### [facility] CLIA [id number] [address] [place] WBC (Bld) [#/Vol] 9.08 10*3/uL Normal 3.70-11.00 [facility] Comment on above: Order Comment: Speci men Type: BLOOD SPECIMEN [facility] Address: [address] [place] [address] Performed By: #### 5 7021-8 #### [facility] CLIA [id number] [address] Comprehensive metabolic 2000 panelon 12-30-2023 Albumin [Mass/Vol] 4.3 g/dL Normal 3.9-4.9 [facility] Comment on above: Order Comment: Speci men Type: BLOOD SPECIMEN [facility] Address: [address] [place] [address] Performed By: #### 2 4323-8 #### [facility] CLIA [id number] [address] [place] [address] [place] ALP [Catalytic activity/Vol] 89 U/L Normal 34-123 [facility] Comment on above: Order Comment: Speci men Type: BLOOD SPECIMEN [facility] Address: [address] [place] [address] Performed By: #### 2 4323-8 #### [facility] CLIA [id number] [address] [place] [address] [place] ALT [Catalytic activity/Vol] 12 U/L Normal 7-38 [facility] Comment on above: Order Comment: Speci men Type: BLOOD SPECIMEN [facility] Address: [address] [place] [address] Performed By: #### 2 4323-8 #### [facility] CLIA [id number] [address] [place] [address] [place] Anion gap [Moles/Vol] 11 mmol/L Normal 8-15 [facility] Comment on above: Order Comment: Speci men Type: BLOOD SPECIMEN [facility] Address: [address] [place] [address] Performed By: #### 2 4323-8 #### [facility] CLIA [id number] [address] [place] [address] [place] AST [Catalytic activity/Vol] 12 U/L Low 13-35 [facility] Comment on above: Order Comment: Speci men Type: BLOOD SPECIMEN [facility] Address: [address] [place] [address] Performed By: #### 2 4323-8 #### [facility] CLIA [id number] [address] [place] [address] [place] Bilirubin [Mass/Vol] 0.6 mg/dL Normal 0.2-1.3 [facility] Comment on above: Order Comment: Speci men Type: BLOOD SPECIMEN Ordering Facility: [facility] Address: [address] [place] [address] Performed By: #### 2 4323-8 #### [facility] CLIA [id number] [address] [place] [address] [place] Calcium [Mass/Vol] 9.3 mg/dL Normal 8.5-10.2 [facility] Comment on above: Order Comment: Speci men Type: BLOOD SPECIMEN Ordering Facility: [facility] Address: [address] [place] [address] Performed By: #### 2 4323-8 #### [facility] CLIA [id number] [address] OF [place] Chloride [Moles/Vol] 102 mmol/L Normal 98-107 [facility] Comment on above: Order Comment: Speci men Type: BLOOD SPECIMEN Ordering Facility: [facility] Address: [address] [place] [address] Performed By: #### 2 4323-8 #### [facility] CLIA [id number] [address] OF [place] CO2 [Moles/Vol] 23 mmol/L Normal 22-30 [facility] Comment on above: Order Comment: Speci men Type: BLOOD SPECIMEN Ordering Facility: [facility] Address: [address] [place] [address] Performed By: #### 2 4323-8 #### [facility] CLIA [id number] [address] [place] Creatinine [Mass/Vol] 0.76 mg/dL Normal 0.58-0.96 [facility] Comment on above: Order Comment: Speci men Type: BLOOD SPECIMEN Ordering Facility: [facility] Address: [address] [place] [address] Performed By: #### 2 4323-8 #### [facility] CLIA [id number] [address] Creatinine and Glomerular filtration rate.predicted panel (S/P/Bld) 112 mL/min/1.73m??? Normal >=60 [facility] Comment on above: Order Comment: Speci men Type: BLOOD SPECIMEN Ordering Facility: [facility] Address: [address] [place] [address] Result Comment: Kanika mated Glomerular Filtration Rate [...] GFR. Performed By: #### 2 4323-8 #### [facility] CLIA [id number] [address] [place] [address] [place] Glucose [Mass/Vol] 86 mg/dL Normal 74-99 [facility] Comment on above: Order Comment: Faustino almeida Type: BLOOD SPECIMEN Ordering Facility: [facility] Address: [address] [place] [address] Result Comment: The [place] Diabetes Association (ADA) provides guidance for cutoff [...] Standards of Medical Care in Diabetes 2016, [place] [employer] Association. Diabetes Care. 2016.39(Suppl 1). Performed By: #### 2 4323-8 #### [facility] CLIA [id number] [address] [place] [address] [place] Potassium [Moles/Vol] 4.2 mmol/L Normal 3.7-5.1 [facility] Comment on above: Order Comment: Faustino almeida Type: BLOOD SPECIMEN Ordering Facility: [facility] Address: [address] [place] [address] Performed By: #### 2 4323-8 #### [facility] CLIA [id number] [address] [place] [address] [place] Protein [Mass/Vol] 7.3 g/dL Normal 6.3-8.0 [facility] Comment on above: Order Comment: Faustino almeida Type: BLOOD SPECIMEN Ordering Facility: [facility] Address: [address] [place] [address] Performed By: #### 2 4323-8 #### [facility] CLIA [id number] [address] Sodium [Moles/Vol] 136 mmol/L Normal 136-144 [facility] Comment on above: Order Comment: Speci men Type: BLOOD SPECIMEN Ordering Facility: [facility] Address: [address] [place] [address] Performed By: #### 2 4323-8 #### [facility] CLIA [id number] [address] Urea nitrogen [Mass/Vol] 12 mg/dL Normal 7-21 [facility] Comment on above: Order Comment: Speci men Type: BLOOD SPECIMEN Ordering Facility: [facility] Address: [address] [place] [address] Performed By: #### 2 4323-8 #### [facility] CLIA [id number] [address] HISTORY PHYSICALon HISTORY PHYSICAL HNO ID: [id number] Author: JERARDO ESCAMILLA PA-C Service: ? Author Type: Physician Glass Tinter Type: H&P Filed: 01/05/2024 11:25 Note Text: PREANESTHESIA CONSULT CLINIC TELEHEALTH VISIT Patient has been identified by name and date of : Yes This is a virtual visit using ividenceom Video Visit. It require patient-provider interaction for the medical decision making as documented below. Reason for contact: PACC visit Accompanied by: Self Scheduled Surgery: Procedure(s) (LRB): RIGHT PALPATION EXCISIONAL BIOPSY (Right) I have communicated my name and active licensure. The patient's identity and physical location were verified at the time of this visit. Either the patient or their legal training representative has been informed of the risks [...] Sig acetami (more content not included)... Normal [facility] CNOVon 12-22-2023 CNOV Office Visit (RAFIQ ) YAEL AYERS ([id number]) 2000 F Date Time Provider Department 12/22/23 11:40 AM TETE MULTANI During your visit today, we recorded the following information about you: Temperature Pulse Respiration Blood pressure 98 degrees 85/minute 18/minute 127/77 Weight Last Period 81 kg 11/28/23 Tete Multani MD 12/22/2023 2:55 PM Signed [facility] Department of Breast Surgery [facility] POST OPERATIVE FOLLOW-UP SERVICE DATE: 12/21/2023 [...] in 3rd trimester. 01/2023 - Delivered baby Duncan mass grew in size February 2023 ([facility]) Right breast US showing a 2.2 x 1.7 x 0.9 cm mass at 6:00. 04/11/2023 ([facility] Right breast US-guided CNBx showed findings consistent [...] No swe (more content not included)... Normal [facility] CNOVon 11-08-2023 CNOV Office Visit (BRCRMN ) YAEL AYERS ([id number]) 2000 F Date Time Provider Department 11/08/23 1:20 PM TETE MULTANI BRJAVAN During your visit today, we recorded the following information about you: Weight Height 77.1 kg 1.626 m Tete Multani MD 11/08/2023 2:22 PM Signed [facility] Department of Breast Surgery [facility] REASON for TODAY'S VISIT: No chief [...] in 3rd trimester. 01/2023 - Delivered baby Duncan mass grew in size February 2023 ([facility]) Right breast US showing a 2.2 x 1.7 x 0.9 cm mass at 6:00. 04/11/2023 ([facility] Right breast US-guided CNBx showed findings consistent [...] but has not started yet BREAST AND ORTHOTIST OR PROSTHETIST RELATED HISTORY: Prior biopsies: as above Prior surgeries: as above Prior radiation: There is no history of Radiation Therapy. OB History T0 L1 SAB0 IAB0 Ectopic0 Multiple0 Live Births1 Comment: Currently breast feeding Child Life Specialist History LMP: 08/26/2023 (Approximate), Having periods Age at Menarche: 11 Age at First : 11 Age at Menopause: Child Life Specialist History Comments: Sexual Activity: Not Asked; No [...] MEDICAL HISTOR (more content not included)... Normal [facility] HISTORY PHYSICALon 4 HISTORY PHYSICAL HNO ID: [id number] Author: TETE MULTANI MD Service: ? Author Type: Physician Type: H&P Filed: 11/08/2023 14:22 Note Text: [facility] Department of Breast Surgery [facility] REASON for TODAY'S VISIT: No chief [...] in 3rd trimester. 01/2023 - Delivered baby Duncan mass grew in size February 2023 (OS[facility]) Right breast US showing a 2.2 x 1.7 x 0.9 cm mass at 6:00. 04/11/2023 ([facility] Right breast US-guided CNBx showed findings consistent [...] but has not started yet BREAST AND ORTHOTIST OR PROSTHETIST RELATED HISTORY: Prior biopsies: as above Prior surgeries: as above Prior radiation: There is no history of Radiation Therapy. OB History T0 L1 SAB0 IAB0 Ectopic0 Multiple0 Live Births1 Comment: Currently breast feeding Child Life Specialist History LMP: 08/26/2023 (Approximate), Having periods Age at Menarche: 11 Age at First : 11 Age at Menopause: Child Life Specialist History Comments: Sexual Activity: Not Asked; No [...] for Human (more content not included)... Normal [facility] CNPNon 11-04-2023 CNPN Telephone (BRCRMN) YAEL AYERS ([id number]) 2000 F Date Time Provider Department 11/04/23 [facility] During your visit today, we recorded the [...] four times daily for 5 days. - Dyhavvjl-Qk-Rzv-Fe-FA tab Take 1 tablet by mouth once [...] Status:Closed by KATIE SAEED on 11/04/23 Normal [facility] Bacteria identifiedon 2023 Bacteria identified Cx Nom (Unsp spec) Test: Tissue/Wound Culture/Smear Specimen Source: Wound/Tissue Specimen Type: Tissue/Biopsy Specimen Date: 11/03/20232106 Result Date: 11/06/20231433 Result Status: Final result Abnormal: Yes Resulting Lab: [facility] [address] [place] [address] CULTURE (1+) Rare Serratia marcescens group (Abnormal) [...] Susceptible TRIMETHOPRIM/SULFAMETH OXAZOLE <=0.5/9.5 mcg/mL Susceptible Abnormal [facility] Comment on above: Performed By: #### 6 463-4 #### NORMA Nelson ([id number]) [facility] ([facility]) [address] [place] [address] Bacteria identified Cx Nom (Bld) Test: Blood Culture Specimen Source: Peripheral Venipuncture Specimen Type: Blood culture Specimen Date: 11/03/2023 2100 Result Date: 11/08/2023 1202 Result Status: Final result Abnormal: No Resulting Lab: [facility] [address] [place] [address] CULTURE No growth at 4 days - FINAL REPORT Normal [facility] Comment on above: Performed By: #### 6 00-7 #### NORMA Nelson ([id number]) [facility] ([facility]) [address] [place] [address] CBC W Auto Differential pane l (Bld)on 11-03-2023 Basophils (Bld) [#/Vol] 0.06 10*3/uL [facility] Basophils/100 WBC (Bld) 0.5 % 0.0 - 2.0 % [facility] Eosinophils (Bld) [#/Vol] 0.21 10*3/uL [facility] Eosinophils/100 WBC (Bld) 1.9 % 0.0 - 6.0 % [facility] Erythrocyte distribution width (RBC) [Ratio] 12.8 % 11.5 - 14.5 % [facility] Hematocrit (Bld) [Volume fraction] 41.2 % 36.0 - 46.0 % [facility] Hemoglobin (Bld) [Mass/Vol] 13.0 g/dL 12.0 - 16.0 g/dL [facility] Immature granulocytes (Bld) [#/Vol] 0.04 10*3/uL [facility] Immature granulocytes/100 WBC (Bld) 0.4 % 0.0 - 0.9 % [facility] Comment on above: Immature Granulocyte Count (IG) includes promyelocytes, myelocytes and metamyelocytes but does not include bands. Percent differential counts (%) should be interpreted in the context of the absolute cell counts (cells/UL). Interpretation and review of laboratory results Abnormal [facility] Lymphocytes (Bld) [#/Vol] 2.02 10*3/uL [facility] Lymphocytes/100 WBC (Bld) 17.9 % 13.0 - 44.0 % [facility] MCH (RBC) [Entitic mass] 27.5 pg 26.0 - 34.0 pg [facility] MCHC (RBC) [Mass/Vol] 31.6 g/dL Low 32.0 - 36.0 g/dL [facility] MCV (RBC) [Entitic vol] 87 fL 80 - 100 fL [facility] Monocytes (Bld) [#/Vol] 0.87 10*3/uL [facility] Monocytes/100 WBC (Bld) 7.7 % 2.0 - 10.0 % [facility] Neutrophils (Bld) [#/Vol] 8.11 10*3/uL High [facility] Comment on above: Percent differential counts (%) should be interpreted in the context of the absolute cell counts (cells/uL). Neutrophils/100 WBC (Bld) 71.6 % 40.0 - 80.0 % [facility] Nucleated RBC/100 WBC (Bld) [Ratio] 0.0 % [facility] Platelets (Bld) [#/Vol] 290 10*3/uL [facility] RBC (Bld) [#/Vol] 4.72 10*6/uL [facility] WBC (Bld) [#/Vol] 11.3 10*3/uL [facility] Basophils (Bld) [#/Vol] 0.06 x10*3/uL Normal 0.00-0.10 [facility] Comment on above: Performed By: #### 5 7021-8 #### MIKE SON ([id number]) [facility] ([facility]) [address] [place] [address] Basophils/100 WBC (Bld) 0.5 % Normal 0.0-2.0 [facility] Comment on above: Performed By: #### 5 7021-8 #### MIKE SON ([id number]) [facility] ([facility]) [address] [place] [address] Eosinophils (Bld) [#/Vol] 0.21 x10*3/uL Normal 0.00-0.70 [facility] Comment on above: Performed By: #### 5 7021-8 #### MIKE SON ([id number]) [facility] ([facility]) [address] [place], [place] [address] Eosinophils/100 WBC (Bld) 1.9 % Normal 0.0-6.0 [facility] Comment on above: Performed By: #### 7021-8 #### MIKE SON ([id number]) [facility] ([facility]) [address] [place] [address] Erythrocyte distribution width (RBC) [Ratio] 12.8 % Normal 11.5-14.5 [facility] Comment on above: Performed By: #### 5 7021-8 #### MIKE SON ([id number]) [facility] ([facility]) [address] [place] [address] Hematocrit (Bld) [Volume fraction] 41.2 % Normal 36.0-46.0 [facility] Comment on above: Performed By: #### 5 7021-8 #### MIKE SON ([id number]) [facility] ([facility]) [address] [place] [address] Hemoglobin (Bld) [Mass/Vol] 13.0 g/dL Normal 12.0-16.0 [facility] Comment on above: Performed By: #### 5 7021-8 #### MIKE SON ([id number]) [facility] ([facility]) [address] [place] [address] Immature granulocytes (Bld) [#/Vol] 0.04 x10*3/uL Normal 0.00-0.70 [facility] Comment on above: Performed By: #### 5 7021-8 #### MIKE SON ([id number]) [facility] ([facility]) [address] [place], [place] [address] Immature granulocytes/100 WBC (Bld) 0.4 % Normal 0.0-0.9 [facility] Comment on above: Result Comment: Joaquina ture Granulocyte Count (IG) includes promyelocytes, myelocytes and metamyelocytes but does not include bands. Percent differential counts (%) should be interpreted in the context of the absolute cell counts (cells/UL). Performed By: #### 5 7021-8 #### MIKE SON ([id number]) [facility] ([facility]) [address] [place] [address] Lymphocytes (Bld) [#/Vol] 2.02 x10*3/uL Normal 1.20-4.80 [facility] Comment on above: Performed By: #### 5 7021-8 #### MIKE SON ([id number]) [facility] ([facility]) [address] [place] [address] Lymphocytes/100 WBC (Bld) 17.9 % Normal 13.0-44.0 [facility] Comment on above: Performed By: #### 5 7021-8 #### MIKE SON ([id number]) [facility] ([facility]) [address] [place] [address] MCH (RBC) [Entitic mass] 27.5 pg Normal 26.0-34.0 [facility] Comment on above: Performed By: #### 5 7021-8 #### MIKE SON ([id number]) [facility] ([facility]) [address] [place] [address] MCHC (RBC) [Mass/Vol] 31.6 g/dL Low 32.0-36.0 [facility] Comment on above: Performed By: #### 5 7021-8 #### MIKE SON ([id number]) [facility] ([facility]) [address] [place] [address] MCV (RBC) [Entitic vol] 87 fL Normal 80-100 [facility] Comment on above: Performed By: #### 5 7021-8 #### MIKE SON ([id number]) [facility] ([facility]) [address] [place] [address] 698[address] Monocytes (Bld) [#/Vol] 0.87 x10*3/uL Normal 0.10-1.00 [facility] Comment on above: Performed By: #### 5 7021-8 #### MIKE SON ([id number]) [facility] ([facility]) [address] [place] [address] Monocytes/100 WBC (Bld) 7.7 % Normal 2.0-10.0 [facility] Comment on above: Performed By: #### 5 7021-8 #### MIKE SON ([id number]) [facility] ([facility]) [address] [place] [address] Neutrophils (Bld) [#/Vol] 8.11 x10*3/uL High 1.20-7.70 [facility] Comment on above: Result Comment: Perc ent differential counts (%) should be interpreted in the context of the absolute cell counts (cells/uL). Performed By: #### 5 7021-8 #### MIKE SON ([id number]) [facility] ([facility]) [address] [place] [address]89[address] Neutrophils/100 WBC (Bld) 71.6 % Normal 40.0-80.0 [facility] Comment on above: Performed By: #### 5 7021-8 #### MIKE SON ([id number]) [facility] ([facility]) [address] [place] [address] 689[address] Nucleated RBC/100 WBC (Bld) [Ratio] 0.0 /100 WBCs Normal 0.0-0.0 [facility] Comment on above: Performed By: #### 5 7021-8 #### MIKE SON ([id number]) [facility] ([facility]) [address] [place] [address]55[address] Platelets (Bld) [#/Vol] 290 x10*3/uL Normal 150-450 [facility] Comment on above: Performed By: #### 5 7021-8 #### MIKE SON ([id number]) [facility] ([facility]) [address] [place] [address] RBC (Bld) [#/Vol] 4.72 x10*6/uL Normal 4.00-5.20 [facility] Comment on above: Performed By: #### 5 7021-8 #### MIKE SON ([id number]) [facility] ([facility]) [facility] [place] [address] WBC (Bld) [#/Vol] 11.3 x10*3/uL Normal 4.4-11.3 [facility] Comment on above: Performed By: #### 5 7021-8 #### MIKE SON ([id number]) [facility] ([facility]) [address] [place], [place] [address] Comprehensive metabolic 2000 panelon 11-03-2023 Albumin BCP dye [Mass/Vol] 4.2 g/dL 3.4 - 5.0 g/dL [facility] ALP [Catalytic activity/Vol] 105 U/L 33 - 110 U/L [facility] ALT With P-5'-P [Catalytic activity/Vol] 18 U/L 7 - 45 U/L [facility] Comment on above: Patients treated wit h Sulfasalazine may generate falsely decreased results for ALT. Anion gap [Moles/Vol] 10 mmol/L 10 - 20 mmol/L [facility] AST With P-5'-P [Catalytic activity/Vol] 12 U/L 9 - 39 U/L [facility] Bilirubin [Mass/Vol] 0.8 mg/dL 0.0 - 1 .2 mg/dL [facility] Calcium [Mass/Vol] 9.6 mg/dL 8.6 - 10. 3 mg/dL [facility] Chloride [Moles/Vol] 104 mmol/L 98 - 10 7 mmol/L [facility] CO2 [Moles/Vol] 26 mmol/L 21 - 32 mmol/L [facility] Creatinine [Mass/Vol] 0.71 mg/dL 0.50 - 1.05 mg/dL [facility] eGFR - PINF [facility] Comment on above: Calculations of kanika mated GFR are performed using the 2020 CKD-EPI Study Refit equation without the race variable for the IDMS-Traceable creatinine methods. https://jasn.asnjournals.org/content//ASN.1972232 988 Glucose [Mass/Vol] 87 mg/dL 74 - 99 mg/dL [facility] Interpretation and review of laboratory results Normal [facility] Potassium [Moles/Vol] 4.0 mmol/L 3.5 - 5.3 mmol/L [facility] Protein [Mass/Vol] 7.4 g/dL 6.4 - 8.2 g/dL [facility] Sodium [Moles/Vol] 136 mmol/L 136 - 145 mmol/L [facility] Urea nitrogen [Mass/Vol] 13 mg/dL 6 - 23 mg/dL [facility] Albumin BCP dye [Mass/Vol] 4.2 g/dL Normal 3.4-5.0 [facility] Comment on above: Performed By: #### 2 4323-8 #### MIKE SON ([id number]) [facility] ([facility]) [address] [place] [address] ALP [Catalytic activity/Vol] 105 U/L Normal 33-110 [facility] Comment on above: Performed By: #### 2 4323-8 #### MIKE SON ([id number]) [facility] ([facility]) [address] [place] [address] ALT With P-5'-P [Catalytic activity/Vol] 18 U/L Normal 7-45 [facility] Comment on above: Result Comment: Alma Rosa ents treated with Sulfasalazine may generate falsely decreased results for ALT. Performed By: #### 2 4323-8 #### MIKE SON ([id number]) [facility] ([facility]) [address] [place] [address] Anion gap [Moles/Vol] 10 mmol/L Normal 10-20 [facility] Comment on above: Performed By: #### 2 4323-8 #### MIKE SON ([id number]) [facility] ([facility]) [address] [place] [address] AST With P-5'-P [Catalytic activity/Vol] 12 U/L Normal 9-39 [facility] Comment on above: Performed By: #### 2 4323-8 #### MIKE SON ([id number]) [facility] ([facility]) [address] [place] [address] Bilirubin [Mass/Vol] 0.8 mg/dL Normal 0.0-1.2 [facility] Comment on above: Performed By: #### 2 4323-8 #### MIKE SON ([id number]) [facility] ([facility]) [address] [place] [address] Calcium [Mass/Vol] 9.6 mg/dL Normal 8.6-10.3 [facility] Comment on above: Performed By: #### 2 432-8 #### MIKE SON ([id number]) [facility] ([facility]) [address] [place] [address] Chloride [Moles/Vol] 104 mmol/L Normal 98-107 [facility] Comment on above: Performed By: #### 2 432-8 #### MIKE SON ([id number]) [facility] ([facility]) [address] [place] [address] CO2 [Moles/Vol] 26 mmol/L Normal 21-32 [facility] Comment on above: Performed By: #### 2 4323-8 #### MIKE SON ([id number]) [facility] ([facility]) [address] [place] [address] Creatinine [Mass/Vol] 0.71 mg/dL Normal 0.50-1.05 [facility] Comment on above: Performed By: #### 2 4323-8 #### MIKE SON ([id number]) [facility] ([facility]) [address] [place] [address] 34155 GFR/1.73 sq M.predicted MDRD (S/P/Bld) [Vol rate/Area] mL/min/{1.73_m2} Normal >60 [facility] Comment on above: Result Comment: Calc ulations of estimated GFR are performed using the 2020 CKD-EPI Study Refit equation without the race variable for the IDMS-Traceable creatinine methods. https://jasn.asnjournals.org/content/early/ASN.5279365 988 Performed By: #### 2 4323-8 #### MIKE SON ([id number]) [facility] ([facility]) [address] [place] [address] 15832 Glucose [Mass/Vol] 87 mg/dL Normal 74-99 [facility] Comment on above: Performed By: #### 2 4323-8 #### MIKE SON ([id number]) [facility] ([facility]) [address] [place] [address] 93267 Potassium [Moles/Vol] 4.0 mmol/L Normal 3.5-5.3 [facility] Comment on above: Performed By: #### 2 4323-8 #### MIKE SNO ([id number]) [facility] ([facility]) [address] [place] [address] 16647 Protein [Mass/Vol] 7.4 g/dL Normal 6.4-8.2 [facility] Comment on above: Performed By: #### 2 4323-8 #### MIKE SON ([id number]) [facility] ([facility]) [address] [place] [address] 33717 Sodium [Moles/Vol] 136 mmol/L Normal 136-145 [facility] Comment on above: Performed By: #### 2 4323-8 #### MIKE SON ([id number]) [facility] ([facility]) [address] [place] [address] 79281 Urea nitrogen [Mass/Vol] 13 mg/dL Normal 6-23 [facility] Comment on above: Performed By: #### 2 4323-8 #### MIKE SON ([id number]) [facility] ([facility]) [address] [place] [address] 62762 Lactateon 11-03-2023 Lactate [Moles/Vol] 0.5 mmol/L 0.4 - 2. 0 mmol/L [facility] Lactate [Moles/Vol] 0.5 mmol/L Normal 0.4-2.0 [facility] Comment on above: Order Comment: Venip uncture immediately after or during the administration of Metamizole may lead to falsely low results. Testing should be performed immediately prior to Metamizole dosing. Performed By: #### 2 [id number] #### MCKEON HUY ([id number]) [facility] ([facility]) [address] [place] [address] Lactate [Moles/Vol]on 2023 Interpretation and review of laboratory results Normal [facility] Venipuncture immediately after or during the administration of Metamizole may lead to falsely low results. Testing should be performed immediately prior to Metamizole dosing. [facility] No Panel Informationon 11-02 Extra Tube Hold for add-ons. [facility] Comment on above: Auto resulted. [facility] Bacteria Wnd Culton 11-02-19 24 Bacteria identified Cx Nom (Wound) ORGANISM ID: 1 Rare skin rachael ORGANISM ID: 2 Few Cutibacterium avidum No further workup GRAM STAIN: No organisms seen No Polymorphonuclear Leukocytes Abnormal [facility] Comment on above: Performed By: #### 6 [id number] ####[facility] LABCLIA [id number] [address] [place] CNOVon 11-02-2023 CNOV Office Visit (BRCRCA ) YAEL AYERS ([id number]) 2000 F Date Time Provider Department 11/02/23 9:30 AM NARDA FARIA During your visit today, we recorded the following information about you: Narda Faria MD 11/02/2023 1:02 PM Signed [facility] Department of Breast Surgical Oncology [facility] BREAST FOLLOW-UP SERVICE DATE: 11/02/2023 POST [...] Radiology, Oru In Addenda RESULT: FINAL REPORT #[id number] - [facility] US BIOPSY BREAST RT ULTRASOUND GUIDED BIOPSY [...] Vegas performed the entire procedure without an assignment desk assistant. 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 MELLISSA/mellissa/10/13/23 [facility] [place] BREAST LTD RIGHT 11/02/2023 11:20 AM - Radiology, Oru In Impression IMPRESSION: PROBABLY BENIGN - SHORT TERM INTERVAL FOLLOW-UP RECOMMENDED Diffuse skin thickening and hyperemia at 6:00 at the site of clinical concern. No drainable abscess. Follow-up ultrasound is recommended February 2024 (more content not included)... Normal [facility] US BREAST LTD RTon 11-01 [facility] US BREAST LTD RT * * *Final Report* * * DATE OF EXAM: Nov 02 2023 11:01AM [facility] 0594 - [facility] US BREAST LTD RT / PROCEDURE REASON: Breast abscess * * * * Physician Interpretation * * * * RESULT: #[id number] - [facility] BREAST LTD RT LIMITED ULTRASOUND OF RIGHT BREAST: 11/02/2023 HISTORY: Breast Abscess. RESULT: Comparison is made to exam dated: 06/14/2023 ultrasound - [facility] Breast [place]. Color flow ultrasound of the right breast [...] at 7:00. Ginette Ingram M.D. ns/:11/02/2023 11:19:21 Horticulture Professor(s): RT Chiki(R)(M), [facility] Breast [place] Ultrasound BI-RADS: 3 Probably benign finding - [...] Health, Family Medicine, and Medical/Surgical Oncology, the [facility] has carefully reviewed the data and [...] their providers when to stop screening mammograms. Rubber Flap Cutter: Mckinley Transcribe Date/Time: Nov 02 2023 11:01A Dictated by : GINETTE INGRAM MD This examination was interpreted and the report reviewed and electronically signed by: GINETTE INGRAM MD on Nov 02 2023 11:19AM EST [id number] Normal [facility] Breast - right limitedon 11-02-2023 IMPRESSION: PROBABLY BENIGN - SHORT TERM INTERVAL FOLLOW-UP RECOMMENDED Diffuse skin thickening and hyperemia at 6:00 at the site of clinical concern. No drainable abscess. Follow-up ultrasound is recommended February 2024 for previously reported findings at 7:00. Ginette Ingram M.D. ns/:11/02/2023 11:19:21 Horticulture Professor(s): Lizzie Langley RT(R)(M), [facility] [place] Ultrasound BI-RADS: 3 Probably benign finding - [...] Health, Family Medicine, and Medical/Surgical Oncology, the [facility] has carefully reviewed the data and [...] their providers when to stop screening mammograms. Rubber Flap Cutter: Mckinley Transcribe Date/Time: Nov 02 2023 11:01A Dictated by : GINETTE INGRAM MD This examination was interpreted and the report reviewed and electronically signed by: GINETTE INGRAM MD on Nov 02 2023 11:19AM EST DIVISION OF RADIOLOGY * * *Final Report* * * DATE OF EXAM: Nov 02 2023 11:01AM [facility] [place] US BREAST LTD RT / PROCEDURE REASON: Breast abscess * * * * Physician Interpretation * * * * RESULT: #[id number] - [facility] US BREAST LTD RT LIMITED ULTRASOUND OF RIGHT BREAST: 11/02/2023 HISTORY: Breast Abscess. RESULT: Comparison is made to exam dated: 06/14/2023 ultrasound - [facility]. Color flow ultrasound of the right breast 6 o'clock region was performed. Escalera scale images of the real-time examination were reviewed. There is diffuse skin thickening and hyperemia at 6:00. A biopsy clip is incidentally noted. No drainable fluid collection.. DIVISION OF RADIOLOGY Provider, [facility] - 11/02/2023 * * *Final Report* * * DATE OF EXAM: Nov 02 2023 11:01AM [facility] 0594 - [facility] BREAST [facility] RT / PROCEDURE REASON: Breast abscess * * * * Physician Interpretation * * * * RESULT: #[id number] - [facility] BREAST LTD RT LIMITED ULTRASOUND OF RIGHT BREAST: 11/02/2023 HISTORY: Breast Abscess. RESULT: Comparison is made to exam dated: 06/14/2023 ultrasound - [facility]. Color flow ultrasound of the right breast [...] at 7:00. Ginette Ingram M.D. ns/:11/02/2023 11:19:21 Horticulture Professor(s): Lizzie Langley RT(R)(M), [facility] Breast [place] Ultrasound BI-RADS: 3 Probably benign finding - [...] Health, Family Medicine, and Medical/Surgical Oncology, the [facility] has carefully reviewed the data and [...] their providers when to stop screening mammograms. Rubber Flap Cutter: Mckinley Transcribe Date/Time: Nov 02 2023 11:01A Dictated by : GINETTE INGRAM MD This examination was interpreted and the report reviewed and electronically signed by: GINETTE INGRAM MD on Nov 02 2023 11:19AM EST [facility] Radiology Study observation (narrative) [facility] US Breast - right limitedOrd ered By: Michelle Provider on 11-02-2023 [facility] 10-13-2023 CNPN Telephone (RADMN) YAEL AYERS ([id number]) 2000 F Date Time Provider Department 10/13/23 [...] Results [95] Prescriptions as of 10/13/2023 - Mguvngcv-Hq-Klm-Fe-FA tab Take 1 tablet by mouth once [...] Status:Closed by DONNA GRACIA on 10/13/23 Normal [facility] US BIOPSY BREAST RTon [facility] US BIOPSY BREAST RT * * *Final Report* * * * * * SEE BOTTOM OF REPORT FOR ADDENDED TEXT * * * DATE OF EXAM: Oct 11 2023 3:09PM [facility] 0598 - [facility] US BIOPSY BREAST RT / PROCEDURE REASON: Breast disorder * * * * Physician Interpretation * * * * RESULT: FINAL REPORT #[id number] - [facility] US BIOPSY BREAST RT ULTRASOUND GUIDED BIOPSY [...] Vegas performed the entire procedure without an assignment desk assistant. Correlation is made to exams dated: 09/13/2023 [...] recommended in 6 months. Deena sanford/mckinley:10/14/2023 16:29:31 Horticulture Professor(s): Cookie Garcia, [facility] Multiple national specialty organizations have released breast cancer screening guidelines for women at average risk for developing breast cancer - guidelines that are based on both evidence and opinion, yet differ on when to start and how often to screen for breast cancer. With representation from Breast Imaging, Internal Medicine, Women's Health, Family Medicine, and Medical/Surgical Oncology, the [facility] has carefully reviewed the data and [...] their providers when to stop screening mammograms. Rubber Flap Cutter: Mckinley Transcribe Date/Time: Oct 11 2023 3:08P Dictated by : DEENA VEGAS MD This examination was interpreted and the report reviewed and electronically signed by: DEENA VEGAS MD on Oct 11 2023 3:18PM EST This document has been addended by: DEENA VEGAS MD on Oct 14 2023 4:29PM EST [id number] Normal [facility] PT EDon 10-11-2023 PT ED HNO ID: [id number] Author: COOKIE GARCIA RT(R) Service: Radiology Author [...] MATERIAL: Homegoing instructions REFERRAL (RECOMMENDATION): None Normal [facility] SURGICAL PATHOLOGYon CASE REPORT Normal [facility] Comment on above: Order Comment: Speci men Type: TISSUE SPECIMENOrdering Facility: [facility] Address: [address] [place] [address] Result Comment: Surg ical Pathology Report Case: [id number] Authorizing Provider: Deena Vegas MD Collected: 10/11/2023 02:56 PM Ordering Location: Mammography Received: 10/11/2023 05:33 PM Pathologist: Keshav Nicholson MD Specimen: Breast, Right, Core Biopsy, 6:00 4 cmfn, ultrasound bx, Hydromark open coil clip Performed By: #### S ####[facility] LABCLIA [id number] [address] [place] FINAL DIAGNOSIS Normal [facility] Comment on above: Order Comment: Speci men Type: TISSUE SPECIMENOrdering Facility: [facility] Address: [address] [place] [address] Result Comment: Righ t breast, 6:00, 4 cmFN, ultrasound-guided core biopsy with open coil clip - Benign breast tissue with organizing fat necrosis, multinucleated giant cell reaction and lactational changes. MELLISSA/mellissa/10/13/23 Performed By: #### S ####[facility] LABCLIA [id number] [address] [place] FINAL PERFORMING LAB Normal [facility] Comment on above: Order Comment: Speci men Type: TISSUE SPECIMENOrdering Facility: [facility] Address: [address] [place] [address] Result Comment: Diag nostic interpretation performed at [facility], [address] [place] [address] CLIA# [id number] Apparel Cutter: Chano Casillas M.D. Performed By: #### S ####[facility] [id number] [place] [address] [place] GROSS DESCRIPTION Normal [facility] Comment on above: Order Comment: Speci men Type: TISSUE SPECIMENOrdering Facility: [facility] Address: [address] [place] [address] Result Comment: A. B reast, Right, Core [...] 2023 10:18 PM Gross examination performed at [facility], [address] [place] [address] Performed By: #### S ####[facility] [id number] [place] [address] [place] US Guidance for biopsy of Br east - righton 10-11-2023 IMPRESSION: ULTRASOU ND GUIDED BIOPSY Ultrasound guided biopsy of the region in the right breast at 6 o'clock with placement of a clip was successful with no apparent post procedure complications. Waiting for pathology results. A final report will be issued when these become available. Deena sanford/mckinley:10/11/2023 15:18:24 Horticulture Professor(s): Cookie Garcia, [facility] Multiple national specialty organizations have released breast cancer screening guidelines for women at average risk for developing breast cancer - guidelines that are based on both evidence and opinion, yet differ on when to start and how often to screen for breast cancer. With representation from Breast Imaging, Internal Medicine, Women's Health, Family Medicine, and Medical/Surgical Oncology, the [facility] has carefully reviewed the data and [...] their providers when to stop screening mammograms. Rubber Flap Cutter: Mckinley Transcribe Date/Time: Oct 11 2023 3:08P Dictated by : DEENA VEGAS MD This examination was interpreted and the report reviewed and electronically signed by: DEENA VEGAS MD on Oct 11 2023 3:18PM [facility] DIVISION OF RADIOLOGY * * *Final Report* * * DATE OF EXAM: Oct 11 2023 3:09PM [facility] - [facility] US BIOPSY BREAST RT / PROCEDURE REASON: Breast disorder * * * * Physician Interpretation * * * * RESULT: #[id number] - [facility] US BIOPSY BREAST RT ULTRASOUND GUIDED BIOPSY [...] Vegas performed the entire procedure without an assignment desk assistant. Correlation is made to exams dated: 09/13/2023 [...] for pathological analysis. DIVISION OF RADIOLOGY Provider, [facility] - 10/11/2023 * * *Final Report* * * DATE OF EXAM: Oct 11 2023 3:09PM [facility] - [facility] US BIOPSY BREAST RT / PROCEDURE REASON: Breast disorder * * * * Physician Interpretation * * * * RESULT: #[id number] - [facility] US BIOPSY BREAST RT ULTRASOUND GUIDED BIOPSY [...] Vegas performed the entire procedure without an assignment desk assistant. Correlation is made to exams dated: 09/13/2023 [...] when these become available. Deena sanford/mckinley:10/11/2023 15:18:24 Horticulture Professor(s): Cookie Garcia, [facility] [place] Multiple national specialty organizations have released breast cancer screening guidelines for women at average risk for developing breast cancer - guidelines that are based on both evidence and opinion, yet differ on when to start and how often to screen for breast cancer. With representation from Breast Imaging, Internal Medicine, Women's Health, Family Medicine, and Medical/Surgical Oncology, the [facility] has carefully reviewed the data and [...] their providers when to stop screening mammograms. Rubber Flap Cutter: Mckinley Transcribe Date/Time: Oct 11 2023 3:08P Dictated by : DEENA VEGAS MD This examination was interpreted and the report reviewed and electronically signed by: DEENA VEGAS MD on Oct 11 2023 3:18PM EST [facility] Radiology Study observation (narrative) [facility] US Guidance for biopsy of Br east - rightOrdered By: Ccf Provider on 10-11-2023 [facility] CNOVon 09-13-2023 CNOV Office Visit (BRCRMN ) YAEL AYERS ([id number]) 2000 F Date Time Provider Department 09/13/23 11:30 AM NARDA FARIA [facility] During your visit today, we recorded the following information about you: Weight Height Last Period 77.1 kg 1.626 m 08/26/23 Narda Faria MD 09/13/2023 5:28 PM Signed [facility] Department of Breast Surgical Oncology [facility] BREAST FOLLOW-UP SERVICE DATE: 09/13/2023 SUBJECTIVE: [...] which included preparing to see the patient, szzq-ey-fejg patient care, completing clinical documentation, obtaining and/or [...] quadrant [N63.10] Prescriptions as of 09/13/2023 - Xymkqpyr-Tn-Fkj-Fe-FA tab Take 1 tablet by mouth once [...] (150 MG) BY MOUTH IN THE MORNING. L-3 [employer] (more content not included)... Normal [facility] [place] BREAST LTD RTon 09-12 [facility] [place] BREAST 99tests RT * * *Final Report* * * DATE OF EXAM: Sep 13 2023 11:32AM [facility]W 0594 - [facility] [place] BREAST 99tests RT / PROCEDURE REASON: multiple diagnoses * * * * Physician Interpretation * * * * RESULT: #[id number] - [facility] [place] BREAST 99tests RT LIMITED ULTRASOUND OF RIGHT BREAST: 09/13/2023 [...] to leaving the department. Yolanda franco/mckinley:09/13/2023 14:48:16 Horticulture Professor(s): RT Chiki(R)(M), [facility] [place] Ultrasound BI-RADS: 4 Suspicious finding - Biopsy [...] Health, Family Medicine, and Medical/Surgical Oncology, the [facility] has carefully reviewed the data and [...] their providers when to stop screening mammograms. Rubber Flap Cutter: Mckinley Transcribe Date/Time: Sep 13 2023 10:52A Dictated by : YOLANDA ANGELA MD This examination was interpreted and the report reviewed and electronically signed by: YOLANDA ANGELA MD on Sep 13 2023 2:48PM EST [id number] Normal [facility] Breast - right limitedon 09-13-2023 [facility] CNOVon 06-14-2023 CNOV Office Visit (BRCRMN ) YAEL AYERS ([id number]) 2000 F Date Time Provider Department 06/14/23 11:45 AM NARDA FARIA [facility] During your visit today, we recorded the [...] which included preparing to see the patient, qojp-me-smzc patient care, completing clinical documentation, obtaining and/or [...] breast [N63.13] Prescriptions as of 06/14/2023 - Bldsueld-Qk-Cpy-Fe-FA tab Take 1 tablet by mouth once [...] Service: OFFICE/OUTPATIENT ESTABLISHED MOD MDM 30 MIN [10803] Encounter Status:Closed by NARDA FARIA on 06/14/23 Normal [facility] [place] BREAST LTD RTon 06-14 [facility] [place] BREAST 99tests RT * * *Final Report* * * DATE OF EXAM: Jun 14 2023 11:51AM [facility] 0594 - [facility] [place] BREAST 99tests RT / PROCEDURE REASON: Mass of lower outer quadrant of right breast * * * * Physician Interpretation * * * * RESULT: #[id number] - [facility] [place] BREAST [facility] RT LIMITED ULTRASOUND OF RIGHT BREAST: 06/14/2023 [...] Faria. Renetta Egan M.D., mc, am/mckinley:06/14/2023 12:55:28 Horticulture Professor(s): RT Chiki(R)(M), [facility] [...] Health, Family Medicine, and Medical/Surgical Oncology, the [facility] has carefully reviewed the data and [...] their providers when to stop screening mammograms. Rubber Flap Cutter: Mckinley Transcribe Date/Time: Jun 14 2023 11:21A Dictated by : KRISTI EGAN MD This examination was interpreted and the report reviewed and electronically signed by: RENETTA SULLIVAN MD on Jun 14 2023 12:55PM EST [id number] Normal [facility] Cytology Cervical or vaginal smear or scraping studyon 05-02-2023 [facility] Fetaldex / Kleihauer Betkeon 02-09-2023 Kleihauer Betke Ratio 0.0007 Ratio Normal [facility] Comment on above: Result Comment: Feta l maternal hemorrhage up to 15 ml 1 vial of Rhogam if indicated --- 02/09/231836 --- Kleisaauer Bethillary previously reported as: 0.0007 Ratio PERFORMED BY: [facility] [address] [place] [address] PATHOLOGIST INDUSTRIAL CLEANING TECHNICIAN ARLEY CASTRO M.D. US PREG CERVICAL LENGTHon [...] Age by EDC: 20 weeks 1 days HNAN by EDC: 02/13/2023 Age by current US: 21 weeks 0 days NHAN by current US: 02/07/2023 IMPRESSION: 1. Single live intrauterine with growth detailed above. Electronically authenticated by: KEV WOLFF Date: 2022-09-27 16:00 Normal [facility] AFP MATERNAL FOR SPINA BIFID Aon 09-17-2022 AFP MoM 1.64 Normal [facility] Comment on above: Performed By: #### C T/NGNA #### [facility] [address] [address] [address] Phill Og AFP Value 67.6 ng/mL Normal [facility] Comment on above: Performed By: #### C T/NGNA #### [facility] [address] [address] [address] Phill Og AFP, Serum for Spina Bifida Report Normal [facility] Comment on above: Performed By: #### C T/NGNA #### [facility] [address] [address] [address] Phill Og Comment Comment Normal [facility] Comment on above: Result Comment: Katie Shay, Ph.D., [facility] Director . References: Available Upon Request. . Multiples Of Median Cutoffs For AFP Elevations Wheeler 2.5 Black 2.8 IDD 2.0 Twins 4.5 Abbreviation Definitions IDD - Insulin Dep Diabetes OSBR - Open Spina Bifida Risk . For further inquiries contact [employer] [facility] at [phone]. . This test was developed and its performance characteristics determined by [employer]. It has not been cleared or approved by the Food and Drug Administration. Performed By: #### C T/NGNA #### [facility] [address] [place] [address] Dr. Phill Castanon Age Collection Date 18.4 weeks Normal [facility] Comment on above: Performed By: #### C T/NGNA #### [facility] [address] [place] [address] Dr. Phill Og Gestat, Age Based on Ultrasound Normal [facility] Comment on above: Result Comment: 14.4 on 08/18/2022 Recalculations are not recommended when gestational dating by LMP and ultrasound are within 10 days. Performed By: #### C T/NGNA #### [facility] [address] [place] [address] Dr. Phill Og Insulin Dep Diabetes No Normal [facility] Comment on above: Performed By: #### C T/NGNA #### [facility] [address] [place] [address] Dr. Phill Og Interpretation Comment Normal [facility] Comment on above: Result Comment: Inte rpretation: [...] Customer Services to discuss available options. The [employer] recommends amniocentesis be offered to women age 35 and older. Performed By: #### C T/NGNA #### [facility] [address] [place] [address] Dr. Phill Og [age] Normal [facility] Comment on above: Performed By: #### C T/NGNA #### [facility] [address] [place] [address] Dr. Phill Og Multiple Gestation No Normal [facility] Comment on above: Performed By: #### C T/NGNA #### [facility] [address] [address] [address] Phill Og OSBR Risk 1 [place] 1895 Normal [facility] Comment on above: Performed By: #### C T/NGNA #### [facility] [address] [place] [address] Dr. Phill Og PDF . Normal [facility] Comment on above: Performed By: #### C T/NGNA #### [facility] [address] [place] [address] Dr. Phill Og Race Normal [facility] Comment on above: Performed By: #### C T/NGNA #### [facility] [address] [place] [address] Dr. Phill Og Test Results: Negative Normal [facility] Comment on above: Performed By: #### C T/NGNA #### [facility] [address] [place] [address] Dr. Phill Og CHLAMYDIA/GONOCOCCUS DANICA (SW AB/URINE/PAPon 08-21-2022 Chlamydia trachomatis, DANICA Negative Normal Negative [facility] Comment on above: Performed By: #### C T/NGNA #### [facility] [address] [place] [address] Dr. Phill Og Neisseria gonorrhoeae, DANICA Negative Normal Negative [facility] Comment on above: Performed By: #### C T/NGNA #### [facility] [address] [place] [address] Dr. Phill Og VAGINITIS/VAGINOSIS DNA PROB Felipe 08-20-2022 Geo species Positive Abnormal Negative [facility] Comment on above: Performed By: #### V AGINT #### [facility] [address] [place] [address] Dr. Phill Og Gardnerella vaginalis Positive Abnormal Negative [facility] Comment on above: Performed By: #### V AGINT #### [facility] [address] [place] [address] Dr. Phill Og Trichomonas vaginalis Negative Normal Negative [facility] Comment on above: Performed By: #### V AGINT #### [facility] [address] [place] [address] Dr. Phill gO HEP B SURFACE ANTIGEN SCREEN on 06-25-2022 HBsAg Screen Negative Normal Negative [facility] Comment on above: Performed By: #### H BSANS #### [facility] [address] [place] [address] Dr. Phill Og HEPATITIS C VIRUS AB W/ REFL EX QUANTon 06-25-2022 HCV AB <0.1 Normal 0.0-0.9 [facility] Comment on above: Performed By: #### H CVPCRR #### [facility] [address] [place] [address] Dr. Phill Og Interpretation: Comment Normal [facility] Comment on above: Result Comment: Nega tive Not infected with HCV, unless recent infection is suspected or other evidence exists to indicate HCV infection. Performed By: #### H CVPCRR #### [facility] [address] [place] [address] Dr. Phill Og HIV 1 AND 2 WITH REFLEXon HIV Screen 4th Generation wRfx Non-Reactive Normal Non Reactive [facility] Comment on above: Result Comment: HIV Negative HIV-1/HIV-2 antibodies and HIV-1 p24 antigen were NOT detected. There is no laboratory evidence of HIV infection. Performed By: #### H IV12 #### [facility] [address] [place] [address] Dr. Phill Og RPR QUANTon 06-25-2022 Rapid Plasma Reagin, Quant Non-Reactive Normal NonRea<1:1 [facility] Comment on above: Result Comment: Plea se Note: This test does not meet current guidelines for screening and diagnosis of syphilis. This test is intended for following treatment response in patients being treated for syphilis infection. To screen for syphilis infection, a reflex cascade that includes both RPR and a treponema-specific assay should be utilized, such as Treponema pallidum (Syphilis) Screening Gardiner (112038) or Rapid Plasma Reagin (RPR) Test With Reflex to Quantitative RPR and Confirmatory Treponema pallidum Antibodies (324941). Performed By: #### R PRQ #### [facility] [address] [place] [address] Dr. Phill Og RUBELLA AB IGGon 06-25-2022 Rubella Antibodies, IgG 6.40 index Normal Immune >0.99 [facility] Comment on above: Result Comment: Non- immune <0.90 Equivocal 0.90 - 0.99 Immune >0.99 Performed By: #### R UBIGG #### [facility] [address] [place] [address] Dr. Phill Og CBC AUTO DIFFon 06-24-2022 BASO # 0.0 103/ul Normal 0.0-0.1 [facility] Comment on above: Performed By: #### C BC #### [facility] [address] [place] [address] Dr. Phill Og Basophils/100 WBC (Bld) 0.2 % Normal 0.2-2.0 [facility] Comment on above: Performed By: #### C BC #### [facility] [address] [place] [address] Dr. Phill Og EO # 0.1 103/ul Normal 0.0-0.7 [facility] Comment on above: Performed By: #### C BC #### [facility] [address] [place] [address] Dr. Phill Og Eosinophils/100 WBC (Bld) 0.5 % Critically low 0.9-7.0 [facility] Comment on above: Performed By: #### C BC #### [facility] [address] [place] [address] Dr. Phill Og Erythrocyte distribution width (RBC) [Ratio] 12.5 % Normal 11.0-15.0 [facility] Comment on above: Performed By: #### C BC #### [facility] [address] [place] [address] Dr. Phill Og Hematocrit (Bld) [Volume fraction] 45.5 % Normal 36.0-48.0 [facility] Comment on above: Performed By: #### C BC #### [facility] [address] [address] [address] Phill Og Hemoglobin (Bld) [Mass/Vol] 13.7 g/dL Normal 12.0-16.0 [facility] Comment on above: Performed By: #### C BC #### [facility] [address] [address] [address] Phill Og IG # 0.04 10e3/ul Critically high 0.00-0.03 [facility] Comment on above: Performed By: #### C BC #### [facility] [address] [place] [address] Dr. Phill Og IG % 0.3 % Normal 0.0-0.5 [facility] Comment on above: Performed By: #### C BC #### [facility] [address] [place] [address] Dr. Phill Og LYMPH # 2.7 103/ul Normal 1.2-3.8 [facility] Comment on above: Performed By: #### C BC #### [facility] [address] [place] [address] Dr. Phill Og Lymphocytes/100 WBC (Bld) 21.7 % Normal 20.5-60.0 [facility] Comment on above: Performed By: #### C BC #### [facility] [address] [place] [address] Dr. Phill Og MANUAL DIFF REQ NO Normal [facility] Comment on above: Performed By: #### C BC #### [facility] [address] [place] [address] Dr. Phill Og MCH (RBC) [Entitic mass] 28.2 pg Normal 26.7-34.0 [facility] Comment on above: Performed By: #### C BC #### [facility] [address] [place] [address] Dr. Phill gO MCHC (RBC) [Mass/Vol] 30.1 g/dL Normal 29.9-35.2 [facility] Comment on above: Performed By: #### C BC #### [facility] [address] [place], [place] [id number] Dr. Phill Og MCV (RBC) [Entitic vol] 93.8 fL Normal 81.0-99.0 [facility] Comment on above: Performed By: #### C BC #### [facility] [address] [place] [address] Dr. Phill Og MONO # 0.9 103/ul Critically high 0.3-0.8 [facility] Comment on above: Performed By: #### C BC #### [facility] [address] [place] [address] Dr. Phill Og Monocytes/100 WBC (Bld) 7.1 % Normal 1.7-12.0 [facility] Comment on above: Performed By: #### C BC #### [facility] [address] [place] [address] Dr. Phill Og NEUT # 8.8 103/ul Critically high 1.4-6.5 [facility] Comment on above: Performed By: #### C BC #### [facility] [address] [place] [address] Dr. Phill Og Neutrophils/100 WBC (Bld) 70.2 % Normal 43.0-75.0 [facility] Comment on above: Performed By: #### C BC #### [facility] [address] [place] [address] Dr. Phill Og Platelet mean volume (Bld) [Entitic vol] 10.5 fL Normal 9.5-13.5 [facility] Comment on above: Performed By: #### C BC #### [facility] [address] [place] [address] Dr. Phill Og PLT 270 103/ul Normal 150-450 [facility] Comment on above: Performed By: #### C BC #### [facility] [address] [place] [address] Dr. Phill Og RBC 4.85 106/ul Normal 4.20-5.40 [facility] Comment on above: Performed By: #### C BC #### [facility] [address] [place] [address] Dr. Phill Og WBC 12.5 103/ul Critically high 4.0-11.0 [facility] Comment on above: Performed By: #### C BC #### [facility] [address] [address] [address] Phill Og CULTURE URINEon 06-24-2022 CULTURE URINE Isolate 1 Geo albicans 50,000 cfu/mL of Normal [facility] Comment on above: Performed By: #### C T/NGNA #### [facility] [address] [address] [address] Phill Og GLYCOHEMOGLOBIN A1Con 2022 ADA RECOMMENDATION SEE BELOW Normal [facility] Comment on above: Result Comment: ADA RECOMMENDED LIMIT 4.0 - 6.0 ADA THERAPEUTIC TARGET < 7.0 ACTION SUGGESTED > 7.0 Performed By: #### A 1C #### [facility] [address] [place] [address] Dr. Phill Og Glucose [Mass/Vol] 91 mg/dL Normal [facility] Comment on above: Performed By: #### A 1C #### [facility] [address] [address] [address] Phill Og HbA1c (Bld) [Mass fraction] 4.8 % Normal 4.5-6.2 [facility] Comment on above: Performed By: #### A 1C #### [facility] [address] [place] [address] Dr. Phill Og TYPE AND SCREENon 06-24-2022 TYPE AND SCREEN Negative Normal [facility] Comment on above: Performed By: #### C T/NGNA #### [facility] [address] [address] [address] Phill Og US PREG TVon 06-24-2022 [...] by: KEV WOLFF Date: 2022-06-24 10:06 Normal [facility] US PREG TVon 06-10-2022 US [...] by: KEV WOLFF Date: 2022-06-10 14:48 Normal [facility] PAP ACOG PANEL 2: 20 to 28on 04-28-2022 . . Normal [facility] Comment on above: Performed By: #### 4 [id number] #### [facility] [address] [place] [address] Dr. Phill Og Age Gdln ACOG Testing - Normal [facility] Comment on above: Performed By: #### 4 [id number] #### [facility] [address] [place] [address] Dr. Phill Og DIAGNOSIS: Comment Normal [facility] Comment on above: Result Comment: NEGA TIVE FOR INTRAEPITHELIAL LESION OR MALIGNANCY. FUNGAL ORGANISMS MORPHOLOGICALLY CONSISTENT WITH GEO SPECIES ARE PRESENT. Performed By: #### 4 [id number] #### [facility] [address] [place] [address] Dr. Phill Og Methodology: Comment Normal [facility] Comment on above: Result Comment: This liquid based ThinPrep(R) pap test was screened with the use of an image guided system. Performed By: #### 4 [id number] #### [facility] [address] [place] [address] Dr. Phill Og Note: Comment Normal [facility] Comment on above: Result Comment: The Pap smear is a screening test designed to aid in the detection of premalignant and malignant conditions of the uterine cervix. It is not a diagnostic procedure and should not be used as the sole means of detecting cervical cancer. Both false-positive and false-negative reports do occur. . Performed By: #### 4 [id number] #### [facility] [address] [place] [address] Dr. Phill Og Performed by: Comment Normal [facility] Comment on above: Result Comment: Adele Lozano, In School Suspension Coordinator (ASCP) Performed By: #### 4 [id number] #### [facility] [address] [place] [address] Dr. Phill Og Reflex Criteria: Comment Normal [facility] Comment on above: Result Comment: The HPV DNA reflex criteria were not met with this specimen result therefore, no HPV testing was performed. . Performed By: #### 4 [id number] #### [facility] [address] [place] [address] Dr. Phill Og Specimen adequacy: Comment Normal [facility] Comment on above: Result Comment: Sati sfactory for evaluation. Endocervical and/or squamous metaplastic cells (endocervical component) are present. Performed By: #### 4 [id number] #### [facility] [address] [place] [address] Dr. Phill Og Thyroglobulin Antibodyon TG AB < 1.0 Normal 0.0-0.9 [facility] Comment on above: Result Comment: Thyr oglobulin Antibody measured by [employer] Methodology Performed By: #### L 3300.6900, L3300.7027 #### [facility] [address] [place], [address] Thyroid Peroxidase ABon 03-31 THYR PEROX AB < 8 Normal 0-34 [facility] Comment on above: Result Comment: Perf ormed at: CB - [facility] [id number] [place], [place] [id number] Information Systems Planner: Jose Dave PhD, Phone: [phone] Performed By: #### L 3300.6900, [id number] #### [facility] [address] [place], [address] T4 Free Directon 04-21-2021 T4 FREE DIRECT 1.15 ng/dL Normal 0.76-1.46 [facility] Comment on above: Performed By: #### L 501.9310, L503.0105, L506.0400, L501.9520, L506.1000 #### [facility] [address] [place], [address] T4 Total, Thyroxinon 021 T4 [Mass/Vol] 14.9 ug/dL High 4.8-13.9 [facility] Comment on above: Performed By: #### L 501.9310, L503.0105, L506.0400, L501.9520, L506.1000 #### [facility] [address] [place], [address] Thyroid Stim Hormone (TSH)on 04-21-2021 TSH 0.65 uIU/mL Normal 0.358-3.74 [facility] Comment on above: Performed By: #### L 501.9310, L503.0105, L506.0400, L501.9520, L506.1000 #### [facility] [address] [place], [address] Vitamin B12on 04-21-2021 Cobalamin (Vitamin B12) [Mass/Vol] 313 pg/mL Normal 211-911 [facility] Comment on above: Performed By: #### L 501.9310, L503.0105, L506.0400, L501.9520, L506.1000 #### [facility] [address] [place], [address] Vitamin D,25 Hydroxyon 04-21 Vitamin D 25-OH 19.1 ng/mL Normal [facility] Comment on above: Result Comment: Lucrecia min D 25(OH) Status Range Deficiency <20 ng/mL (50nmol/L) Insufficiency 20 - 30 ng/mL (50 - 75 nmol/L) Sufficiency 30 - 100 ng/mL (75 - 250 nmol/L) Toxicity >100 ng/mL (>250 nmol/L) Performed By: #### L 501.9310, L503.0105, L506.0400, L501.9520, L506.1000 #### [facility] [address] [place], [address] CBC W/Diff, Automatedon 01-29 Absolute Lymph 2.06 X10 3/uL Normal 0.83-4.51 [facility] Comment on above: Performed By: #### L 100.0100, L506.0400, L501.57138, L503.0105, L506.1000, L501.9520, L500.4050, L501.9310 #### [facility] [address] [place], [address] Absolute Neut 4.3 X10 3/uL Normal 2.0-7.7 [facility] Comment on above: Performed By: #### L 100.0100, L506.0400, L501.27474, L503.0105, L506.1000, L501.9520, L500.4050, L501.9310 #### [facility] [address] [place], [address] Basophils/100 WBC (Bld) 0.4 % Normal 0-1 [facility] Comment on above: Performed By: #### L 100.0100, L506.0400, L501.70743, L503.0105, L506.1000, L501.9520, L500.4050, L501.9310 #### [facility] [address] [place], [address] Eosinophils/100 WBC (Bld) 1.1 % Normal 0-5 [facility] Comment on above: Performed By: #### L 100.0100, L506.0400, L501.75261, L503.0105, L506.1000, L501.9520, L500.4050, L501.9310 #### [facility] [address] [place], [address] Erythrocyte distribution width (RBC) [Ratio] 12.3 % Normal 11.6-14.6 [facility] Comment on above: Performed By: #### L 100.0100, L506.0400, L501.09774, L503.0105, L506.1000, L501.9520, L500.4050, L501.9310 #### [facility] [address] [place], [address] Hematocrit (Bld) [Volume fraction] 44.9 % Normal 37-47 [facility] Comment on above: Performed By: #### L 100.0100, L506.0400,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 Phone: [phone] Comment on above: Ordering Provider: Elli Tong 31789 369 1 [employer] Phone: [phone] Comment on above: Ordering Provider: Elli Tong 21279 225 1 [employer] Work Phone: [phone] Comment on above: Ordering Provider: Elli Tong 66899 [email or web address]: [email or web address] [email or web address] 57655 [facility] [employer] Work Phone: Comment on above: Ordering Provider: Elli Tong 19631 Interpreted by: UMU MARTINEZ01/16/20 13:24STUDY:Chest Radiograph; 01/16/20 [...] signed by: UMU MARTINEZ 01/16/20 13:24 Normal [employer] Work Phone: Comment on above: Ordering Provider: Elli TONG 35204 407 1 [employer] Phone: Comment on above: Ordering Provider: Elli Tong 30387 390 1 [employer] Phone: Comment on above: Ordering Provider: Elli Tong 46979 199 1 [employer] Work Phone: Comment on above: Ordering Provider: Elli Tong 96852 143 1 [employer] Phone: Comment on above: Ordering Provider: Elli Tong 87958 223 1 [employer] Work Phone: Comment on above: Ordering Provider: Elli Tong 75173 18 1 [employer] Phone: Comment on above: Ordering Provider: Elli Tong 38575 Please see physicia n note for formal interpretation confirmed by Scribe [employer] Work Phone: Comment on above: Ordering Provider: Elli Tong 85760 54 1 [employer] Work Phone: [phone] Comment on above: Ordering Provider: Elli Tong 48783 55 1 [employer] Work Phone: [phone] Comment on above: Ordering Provider: Elli Tong 93627 449 1 [employer] Work Phone: [phone] Comment on above: Ordering Provider: Elli Whaley 334 1 [employer] Work Phone: [phone] Comment on above: Ordering Provider: Elli Osman445 84 1 [employer] Work Phone: [phone] Comment on above: Ordering Provider: Elli Tong 89064 160 1 [place] [employer] Phone: [phone] Comment on above: Ordering Provider: Elli Tong 71606 109 1 [employer] Work Phone: [phone] Comment on above: Ordering Provider: Elli oTng 84433 13 1 [place] [employer] Phone: [phone] Comment on above: Ordering Provider: Elli Tong 14975 [email or web address]: [email or web address]?[email or web address] [email or web address] 46271 [facility] [employer] Work Phone: [phone] Comment on above: Ordering Provider: Elli Tong 81084 Albumin BCP dye [Mass/Vol] 4.1 g/dL 3.4 - 5.0 [facility] [employer] Phone: Comment on above: Ordering Provider: Elli TONG 75574 ALT With P-5'-P [Catalytic activity/Vol] 11 U/L 7 - 45 [employer] Phone: Comment on above: Patients treated wit h Sulfasalazine may generate falsely decreased results for ALT. Ordering Provider: Elli TONG 80275 AST With P-5'-P [Catalytic activity/Vol] 10 U/L 9 - 39 [facility] [employer] Work Phone: Comment on above: Ordering Provider: Elli TONG 14741 >60 >60 [facility] [employer] Work Phone: Comment on above: Ordering Provider: Elli FLORENCEDINORAH TONG [address] CALCULATIONS OF KANIKA MATED GFR ARE PERFORMED [...] made to minimize errors. Minor errors in bioinformatics research technician may be present. Please call if questions.. [...] a day SIGNIFICANT EVENTS: No documented data. SEWING TRIMMER: Is : no(1) Is : no(1) CLINICAL [...] Referenced From Triage - ED 16-Jan-2020 11:57 [facility] Screen - Adult Emergenc yon 01-16-2020 Risk [...] Preferencesverbal instruction; video Cultural Considerationsnone Developmental Considerationsnone Zoroastrianism Considerationsnone Learning Assessment (Other Learner): Learning Assessment (Other Learner): Other learner availableno Pressure Injury/TB/Substance: Pressure Injury: Do you have a coughno Substance Use Current or Former HistoryYES: Cigarette/Tobacco, Alcohol Smoking Statusformer smoker Alcohol Useoccasionally Admission Risk Screen: Significant IndicatorsComplete CAGE: CAGE: Is this an injured patient at a Trauma Center ([facility]/[place]): no Electronic Signatures: Zoya Small (RN) (Signed 16-Jan-2020 12:18) Authored: Preferred Language, Advanced Directives, Family Violence Adult, Learning Assessment (Patient), Learning Assessment (Other Learner), Pressure Injury/TB/Substance, CAGE Last Updated: 16-Jan-2020 12:18 by Zoya Small (MARTI) [facility] Triage - EDon 01-16-2020 Triage - ED [...] BMI (kg/m2): 25.020 Calculated BSA (m2) 1.77 [place] Coma Scale: Best Eye Response: (E4) spontaneous Best Motor Response: (M6) obeys commands Best Verbal Response: (V5) oriented [place] Score: 15 Allergies: no Last menstrual period: [...] Accompanied By: self Language: Spoken Language Preferred: Kenyan Reading Language Preferred: Kenyan Present on Arrival: Device Present on Arrival [...] Medical History Reviewedyes Electronic Signatures: Zoya Small (MARTI) (Signed 16-Jan-2020 12:17) Authored: Triage, Past Medical History Last Updated: 16-Jan-2020 12:17 by Zoya Small (MARTI) Normal [facility] UA MICROSCOPICon 01-16-2020 BACTERIA 1+ /HPF Abnormal [facility] Comment on above: Performed By: #### U AMIC #### [place] [address] MUCUS 3+ /LPF Normal [facility] Comment on above: Performed By: #### U AMIC #### [place] [address] RBC 3 /HPF Normal 0-5 [facility] Comment on above: Performed By: #### U AMIC #### [place] [address] SQUAMOUS EPITH. CELLS 4 /HPF Normal [facility] Comment on above: Performed By: #### U AMIC #### [place] [address] WBC 7 /HPF Abnormal 0-5 [facility] Comment on above: Performed By: #### U AMIC #### [address] [address] URINALYSISon 01-16-2020 Appearance (U) HAZY Normal CLEAR [facility] Comment on above: Performed By: #### U A #### [address] [address] Bilirubin (U) [Mass/Vol] Negative Normal NEGATIVE [facility] Comment on above: Performed By: #### U A #### [address] [address] BLOOD Negative Normal NEGATIVE [facility] Comment on above: Performed By: #### U A #### [address] [address] Color (U) Yellow Normal STRAW,YELLOW [facility] Comment on above: Performed By: #### U A #### [address] [address] Glucose [Mass/Vol] Negative Normal NEGATIVE [facility] Comment on above: Performed By: #### U A #### [address] [address] Ketones Ql (U) Negative Normal NEGATIVE [facility] Comment on above: Performed By: #### U A #### [place] [id number] Leukocyte esterase Test strip Ql (U) Negative Normal NEGATIVE [facility] Comment on above: Performed By: #### U A #### [place] [address] Nitrite Ql (U) Positive Normal NEGATIVE [facility] Comment on above: Performed By: #### U A #### [address] [address] pH (Bld) 5.0 Normal 5.0 - 8.0 [facility] Comment on above: Performed By: #### U A #### [address] [address] Protein (U) [Mass/Vol] Negative Normal NEGATIVE [facility] Comment on above: Performed By: #### U A #### [place] [id number] Specific gravity (U) [Rel density] 1.019 Normal 1.005 - 1.035 [facility] Comment on above: Performed By: #### U A #### [address] [address] Urobilinogen Qn (U) <2.0 Normal 0.0 - 1.9 [facility] Comment on above: Performed By: #### U A #### [address] [address] Urinalysison 01-16-2020 Appearance (U) HAZY CLEAR [facility] [employer] Work Phone: Comment on above: Ordering Provider: Elli TONG [address] Color (U) Yellow See Below [facility] [employer] Work Phone: Comment on above: Reference Range: STR AW,YELLOW Ordering Provider: Elli TONG [address] Glucose Ql (U) Negative NEGATIVE [facility] [employer] Work Phone: Comment on above: Ordering Provider: Elli Whaley Ketones Ql (U) Negative NEGATIVE [facility] [employer] Work Phone: Comment on above: Ordering Provider: Elli TONG [address] Leukocyte esterase Test strip Ql (U) [facility] Comment on above: Ordering Provider: Elli TONG [address] pH (U) 5.0 [pH] 5.0 - 8.0 [facility] [employer] Work Phone: Comment on above: Ordering Provider: Elli TONG 106[address] Protein (U) [Mass/Vol] Negative NEGATIVE [facility] [employer] Work Phone: Comment on above: Ordering Provider: Elli TONG [address] RBC (U) [#/Vol] Negative NEGATIVE [facility] [employer] Work Phone: Comment on above: Ordering Provider: Elli TONG [address] Specific gravity (U) [Rel density] 1.019 1 See Below [facility] [employer] Work Phone: Comment on above: Reference Range: 1.0 05 - 1.035 Ordering Provider: Elli Osman445 Urinalysis Positive NEGATIVE [employer] Phone: Comment on above: Ordering Provider: Elli Whaley Urinalysis <2.0 0.0 - 1.9 [facility] [employer] Phone: Comment on above: Ordering Provider: Elli Whaley Urinalysis Negative NEGATIVE [employer] Work Phone: Comment on above: Ordering Provider: Elli Whaley Urinalysis, Microscopicon Bacteria LM.HPF (Urine sed) [#/Area] 1+ Abnormal [facility] [employer] Work Phone: Comment on above: Ordering Provider: Elli Whaley Urinalysis, Microscopic 3+ [employer] Phone: Comment on above: Ordering Provider: Elli Whaley Urinalysis, Microscopic 4 {/HPF} [employer] Work Phone: Comment on above: Ordering Provider: Elli Whaley Urinalysis, Microscopic 3 {/HPF} 0-5 [employer] Phone: Comment on above: Ordering Provider: Elli Whaley Urinalysis, Microscopic 7 {/HPF} Abnormal 0-5 [employer] Phone: Comment on above: Ordering Provider: Elli Whaley Primary Care Visit (Text/For ms)on 07-20-2019 Primary Care Visit (Text/Forms) Diagnoses/Problems Assessed Gastroesophageal reflux disease without esophagitis (530.81) (K21.9) IBS (irritable bowel syndrome) (564.1) (K58.9) Abdominal pain (789.00) (R10.9) Anxiety, generalized (300.02) (F41.1) Orders Abdominal pain IO UA (automated w/o microscopy); Status:Resulted - Requires Verification,Retrospec tive By Protocol Authorization; Done: [id number] 03:15PM Anxiety, generalized Start: buPROPion HCl ER [...] saw GI doc last year and ECG. Dr in [facility] - will need old records. Dr bhavya Lewis [phone]. zantac did not help. IBS - cramping [...] Known Drug Allergies Vitals Vital Signs Recorded: [id number] 03:02PM Heart Rate: 97 Systolic: 110 Diastolic: [...] No murmur, No gallop. Integumentary: Warm, Dry, [place], Intact. Psychiatric: Cooperative, Appropriate mood AND affect, [...] No murmur, No gallop. Integumentary: Warm, Dry, [place], Intact. multiple rasied lesions both hands c/w [...] MD Transcribed by: AMI Technologist: SERGE Gao [facility] US Breast Unilateral Rt Comp leteon 05-11-2018 [...] Escobedo MD Transcribed by: AMI Technologist: SERGE [facility] Coding Summary.on 05-10-2018 Coding Summary. CODING DATE: 05/10/2018 FINAL [facility] STATUS: Home (Routine DC) PAYOR: Jamil MICHELLE DESCRIPTION 5522 Level 2 Imaging without Contrast [...] Lemon CphT Date Saved: 05/10/2018 08:56 am [facility] C Urineon 05-05-2018 Bacteria identified Cx Nom (U) Microbiology PROCEDURE: Urine Culture [R1] SOURCE: U CleanCatch BODY SITE: COLLECTED DATE/TIME: 05/03/2018 06:10 EST RECEIVED DATE/TIME: 05/03/2018 10:31 EST START DATE/TIME: 05/03/2018 10:31 EST FREE TEXT SOURCE: Janes Jovel MD, MD, Daryl FINAL REPORTS Final Report [] Verified Date/Time: [...] Locations R1: This test was performed at: [facility], [address] [place] [address], [address] , [facility] Comment on above: Performed By: #### 1 [id number], [id number] ####[place] [address] [place] [address] Coding Summary.on 05-04-2018 Coding Summary. CODING DATE: 05/04/2018 FINAL [facility] STATUS: Home (Routine DC) PAYOR: Jamil APC DESCRIPTION 5571 Level 1 Imaging with Contrast 5024 Level 4 Type A ED Visits 5693 Level 3 Drug Administration 5691 Level 1 [...] Campos Date Saved: 05/04/2018 10:10 am Normal [facility] Coding Summary. CODING DATE: 05/04/2018 FINAL [facility] STATUS: Home (Routine DC) PAYOR: Jamil APC [...] Campos Date Saved: 05/04/2018 10:10 am Normal [facility] Auto Diffon 05-03-2018 Basophils #/vol (Bld) 0.4 % Normal 0.0-2.0 [facility] Comment on above: Order Comment: Order Added by Discern Expert. Performed By: #### 2 975727, 9283509, 8741935, 5990584, 9335697, 91613138, 01242175 ####[facility] [address] [place] [address] Basophils/Leukocytes Auto Pure number fraction (Bld) 0.1 E9/L Normal 0.0-0.2 [facility] Comment on above: Order Comment: Order Added by Discern Expert. Performed By: #### 2 463283, 4494286, 4053781, 8115053, 8748555, 33341855, 27125696 ####[place] [address] [place] [address] Eosinophils/100 WBC (Bld) 0.8 % Normal 0.0-8.0 [facility] Comment on above: Order Comment: Order Added by Discern Expert. Performed By: #### 2 217929, 9344263, 1234099, 9377540, 1606585, 67448668, 72651582 ####[place] [address] [place] [address] Eosinophils/Leukocyt es Auto Pure number fraction (Bld) 0.1 E9/L Normal 0.0-0.5 [facility] Comment on above: Order Comment: Order Added by Discern Expert. Performed By: #### 2 247848, 8474465, 0767240, 0449812, 2269684, 75676828, 04052212 ####[address] [address] Lymphocytes/100 WBC (Bld) 23.2 % Normal 14.0-50.0 [facility] Comment on above: Order Comment: Order Added by Discern Expert. Performed By: #### 2 942761, 3832643, 9396423, 4873720, 4140802, 05704618, 22985287 ####[place] [address] [place] [address] Lymphocytes/Leukocyt es Auto Pure number fraction (Bld) 3.8 E9/L Normal 1.0-4.0 [facility] Comment on above: Order Comment: Order Added by Discern Expert. Performed By: #### 2 075843, 5505721, 6441943, 6705514, 1985100, 43393577, 27861405 ####[place] [address] [place] [address] Monocytes/100 WBC (Bld) 8.7 % Normal 4.0-14.0 [facility] Comment on above: Order Comment: Order Added by [employer] Expert. Performed By: #### 2 746713, 0777122, 1725851, 6177134, 7982437, 98107327, 49442559 ####[facility] [address] [place] [address] Monocytes/Leukocytes Auto Pure number fraction (Bld) 1.4 E9/L High 0.2-1.0 [facility] Comment on above: Order Comment: Order Added by Discern Expert. Performed By: #### 2 468792, 1761741, 8419655, 4400489, 7007252, 01449772, 22864319 ####[place] [address] [place] [address] Neutrophils/100 WBC (Bld) 66.9 % Normal 36.0-75.0 [facility] Comment on above: Order Comment: Order Added by Discern Expert. Performed By: #### 2 681096, 5494773, 0979357, 7658027, 3359207, 30590919, 89186206 ####[place] [address] [place] [address] Neutrophils/Leukocyt es Auto Pure number fraction (Bld) 10.8 E9/L High 2.0-7.5 [facility] Comment on above: Order Comment: Order Added by Discern Expert. Performed By: #### 2 977848, 0977438, 3605778, 2984484, 8795690, 71605332, 94907437 ####[place] [address] [place] [address] B hCG Qualon 05-03-2018 HCG.beta subunit Qn Negative Normal [facility] Comment on above: Performed By: #### 2 644497, 9280622, 4690955, 3622474, 4564349, 09265157, 88715247 ####[facility] [address] [place] [address] BMPon 05-03-2018 Creatinine mass conc 0.8 mg/dL Normal 0.5-1.3 [facility] Comment on above: Performed By: #### 2 737124, 6573254, 2017259, 0121581, 5806987, 21742746, 55650967 ####[facility] [address] [place] [address] Urea nitrogen mass conc 9 mg/dL Normal 5-21 [facility] Comment on above: Performed By: #### 2 973702, 0221318, 3354065, 2228391, 3127072, 06890819, 33078275 ####[facility] [address] [place] [address] Urea nitrogen/Creatinine mass ratio 11 No Units Normal 10-20 [facility] Comment on above: Performed By: #### 2 035833, 4826819, 5943796, 1567763, 7120267, 62699070, 12359160 ####[facility] [address] [place] [address] Anion gap molar conc 9 mmol/L Normal 6-16 [facility] Comment on above: Performed By: #### 2 965470, 7420885, 3131516, 6040636, 6477287, 56071041, 40345817 ####[facility] [address] [place] [address] Calcium mass conc 8.9 mg/dL Normal 8.9-11.1 [facility] Comment on above: Performed By: #### 2 015953, 8852432, 9815554, 7673155, 3956514, 82261880, 86485229 ####[facility] [address] [place] [address] Chloride molar conc 102 mmol/L Normal 101-111 [facility] Comment on above: Performed By: #### 2 410124, 4239647, 0175708, 4566801, 2452980, 49791391, 75361002 ####[facility] [address] [place] [address] CO2 molar conc 28 mmol/L Normal 21-31 [facility] Comment on above: Performed By: #### 2 549895, 4860001, 9732161, 6914555, 2902424, 10037917, 29323250 ####[facility] [address] [place] [address] Glucose mass conc 109 mg/dL Normal 55-199 [facility] Comment on above: Result Comment: If t his glucose result represents a fasting glucose, interpretation should refer to the following reference range: 55-99 mg/dL Performed By: #### 2 438771, 6256169, 6120731, 3027051, 1742465, 70934375, 07024529 ####[facility] [address] [place] [address] Potassium molar conc 2.9 mmol/L Low 3.5-5.3 [facility] Comment on above: Performed By: #### 2 535613, 3423323, 2521753, 3162127, 3606708, 02547077, 58504382 ####[facility] [address] [place] [address] Sodium molar conc 136 mmol/L Normal 135-145 [facility] Comment on above: Performed By: #### 2 840858, 4063407, 1521637, 6421456, 8944119, 38043232, 81200663 ####[facility] [address] [place] [address] CBC w/ Auto Diffon Erythrocyte distribution width Ratio (RBC) 13.4 % Normal 10.9-14.2 [facility] Comment on above: Performed By: #### 2 720161, 9240302, 6963543, 5461430, 3840245, 53808024, 37581994 ####[facility] [address] [place] [address] Hematocrit Volume Fraction (Bld) 41.1 % Normal 34.0-46.0 [facility] Comment on above: Performed By: #### 2 122430, 5940136, 0598670, 0530212, 9161323, 54847713, 01190830 ####[facility] [address] [place] [address] Hemoglobin mass conc (Bld) 13.9 g/dL Normal 12.0-16.0 [facility] Comment on above: Performed By: #### 2 706703, 8944696, 3380215, 7870578, 8892940, 55002942, 67981401 ####[facility] [address] [place] [address] MCH Entitic mass (RBC) 29.4 pg Normal 27.0-34.0 [facility] Comment on above: Performed By: #### 2 937029, 2425505, 3925456, 0684640, 4731719, 06885088, 83294671 ####[place] [address] [place] 1721257 MCHC mass conc (RBC) 33.7 g/dL Normal 31.4-39.3 [facility] Comment on above: Performed By: #### 2 465449, 5502701, 1061916, 8899312, 8511501, 13463811, 46592655 ####[address] [address] MCV Entitic volume (RBC) 87.2 fL Normal 80.0-100.0 [facility] Comment on above: Performed By: #### 2 558112, 6676147, 1991227, 6007027, 1565622, 77525864, 99075590 ####[place] [address] Platelet mean volume Entitic volume (Bld) 8.0 fL Normal 6.4-10.8 [facility] Comment on above: Performed By: #### 2 517702, 9603430, 5346528, 1506674, 5161345, 87722174, 67980511 ####[address] [address] Platelets #/vol (Bld) 270.0 E9/L Normal 150.0-500.0 [facility] Comment on above: Performed By: #### 2 570245, 1281421, 5215917, 8697715, 4483871, 87312847, 95847527 ####[address] [address] RBC #/vol (Bld) 4.7 E12/L Normal 4.3-5.9 [facility] Comment on above: Performed By: #### 2 870739, 7642739, 9389329, 5663738, 9961839, 48363428, 76376894 ####[facility] [address] [place] [address] WBC corrected for nucl RBC Auto #/vol (Bld) 16.1 E9/L High 4.0-11.0 [facility] Comment on above: Result Comment: Slid e reviewed by AC. Performed By: #### 2 414158, 4690881, 8964487, 8925625, 7668009, 71907536, 06660452 ####[facility] [address] [place] [address] ED Clinical Summaryon 2017 ED Clinical Summary [place] [id number] ED Clinical Summary Person Information Name: YAEL TALLEY M[place]/[facility] Age: 18 Years : 2000 12:00 AM Sex: Female Language: Kenyan PCP: Jolynn VILLA MD Marital Status: Single [...] 05/03/2018 9:58 AM 05/03/2018 9:58 AM ADDRESS: [address] [place] [address] [address] [facility] [address] PHYS DOC NOTES: MEDICAL INFORMATION: Prescriptions Given: Prescription Display acetaminophen-hydrocod one ([place] 325 mg-5 mg oral tablet) 1 tab(s), [...] Refills(s) 1 PATIENT EDUCATION INFORMATION: Instructions: Cholelithiasis, Zqcd-zl-Uaml; Pyelonephritis, Adult, Kxam-si-Uvwv Follow up: With: Address: When: Jolynn VILLA [address] [place], [place] [address] [address], [place] [address] Business (1) Within 3 to 5 days Comments: Call physician if symptoms worsen Return to ED if symptoms worsen DIAGNOSIS: 1:Rt flank pain; 2:Urinary tract infection; 3:Acute pyelonephritis Normal [facility] ED Note-Physicianon 05-03-20 ED Note-Physician Basic Information [...] 400 mg= 1 tab(s), Oral, q6hr, PRN [place] 325 mg-5 mg oral tablet, 1 tab(s), Oral, q6hr, PRN Zofran ODT 8 mg Tab-Dis, 8 mg= 1 tab(s), Oral, q8hr, PRN, 1 refills Follow-up With When Contact Information Jolynn VILLA Within 3 to 5 days [address] [place] [address]- Business (1) Additional Instructions: Call physician if symptoms worsen Return to ED if symptoms worsen Patient Education Cholelithiasis, Kwmb-uo-Oyoq Pyelonephritis, Adult, Itvw-vb-Ilco Problem List/Past Medical History Ongoing Smoker Historical [...] Lymph Auto: 23.2 % (05/03/18 06:07:00 EST) [place] Auto: 8.7 % (05/03/18 06:07:00 EST) Eos Auto: 0.8 % (05/03/18 06:07:00 EST) Basophil Auto: 0.4 % (05/03/18 06:07:00 EST) Neutro Absolute: 10.8 E9/L High (05/03/18 06:07:00 EST) Lymph Absolute: 3.8 E9/L (05/03/18 06:07:00 EST) [place] Absolute: 1.4 E9/L High (05/03/18 06:07:00 EST) [...] Given? No Signed By: Judd Curtis MD [facility] Comment on above: Result Comment: Elec tronically [...] Lymph Auto: 23.2 % (05/03/18 06:07:00 EST) [place] Auto: 8.7 % (05/03/18 06:07:00 EST) Eos Auto: 0.8 % (05/03/18 06:07:00 EST) Basophil Auto: 0.4 % (05/03/18 06:07:00 EST) Neutro Absolute: 10.8 E9/L High (05/03/18 06:07:00 EST) Lymph Absolute: 3.8 E9/L (05/03/18 06:07:00 EST) [place] Absolute: 1.4 E9/L High (05/03/18 06:07:00 EST) [...] Diagnostic Results No qualifying data available. Normal [facility] Comment on above: Result Comment: Elec trodelally Signed By: Med DIALLO, Janes\.mukund\Date and Time [...] Document Reviewed: 11/07/2013 ExitCare? Patient Information ?2015 [employer]. This information is not intended to replace [...] Document Reviewed: 11/03/2011 ExitCare? Patient Information ?2014 [employer]. This information is not intended to replace advice given to you by your health care provider. Make sure you discuss any questions you have with your health care provider. Normal [facility] ED Patient Summaryon 018 ED Patient Summary [place] [id number] Patient Discharge Instructions Person Information Name: YAEL TALLEY Age: 18 Years Arrival Date: 05/03/2018 5:43 AM Discharge Diagnosis: 1:Rt flank pain; 2:Urinary tract infection; 3:Acute pyelonephritis Primary Care Physician: Jolynn VILLA MD Provider Information Primary Provider: Janes Jovel MD Advanced Bronzer:None The exam and treatment you received in the Emergency Department were for an urgent problem and are not intended as complete care. It is important that you follow up with a doctor, nurse practitioner, or physician?s assignment desk assistant for ongoing care. If your symptoms become worse or you do not improve as expected and you are unable to reach your usual health care provider, you should return to the Emergency Department. We are available 24 hours a day. YAEL TALLEY has been given the following list of patient education materials, prescriptions and follow-up instructions: Follow-up Instructions: With: Address: When: Jolynn VILLA [address] [place] [address] [address] [phone] Business (1) Within 3 to 5 days Comments: Call physician if symptoms worsen Return to ED if symptoms worsen In the event that this physician does not participate in your insurance network, please consult with your insurance company to find a nearby participating provider. Patient Education Materials: Cholelithiasis, Zral-ms-Lmhd; Pyelonephritis, Adult, Dhcg-za-Irea A MESSAGE TO ALL PATIENTS REGARDING OPIOIDS PRESCRIPTION OPIOIDS: WHAT YOU NEED TO KNOW Prescription opioids can be used to help relieve svigofim-yg-kmrabz pain and are often prescribed following a [...] be struggling with addiction, tell your health respite care provider and ask for guidance or call [facility] National Helpline at 5-358-848-VJLC. m Source: [place] Department of Health and Human Services/Center for Disease Control & Prevention [facility] Medications Given: Medication Dose Route morphine 2.00 mg IV Push Right Antecubit [place] ondansetron 4.00 mg IV Push Right Antecubit Addy ceftriaxone 1.00 gram IV Piggyback Right Antecubit [place] Sodium Chloride 0.9% intravenous solution 1000.00 mL Initial Volume 1000.00 mL/hr IV Piggyback Right Antecubit [place] Medication Information: New Medications Printed Prescriptions acetaminophen-hydrocod one ([place] 325 mg-5 mg oral tablet) 1 Tabs [...] Information: Re Mustafa Thank you for choosing [facility] Patient Education Materials: Possible Cholelithiasis Follow-up with [...] Document Reviewed: 11/07/2013 ExitCare? Patient Information ?2015 [employer]. This information is not intended to replace [...] Document Reviewed: 11/03/2011 ExitCare? Patient Information ?2015 [employer]. This information is not intended to replace advice given to you by your health care provider. Make sure you discuss any questions you have with your health care provider. GERRI Soliz ALEXUS R , have received the following patient education materials/instructions and have verbalized understanding: Patient Education Materials: Cholelithiasis, Wfvc-hg-Lnpq; Pyelonephritis, Adult, Tash-ru-Jwkr Follow-up Instructions: With: Address: When: Jolynn VILLA [address] [place] [address] [address] [phone] Business (1) Within 3 to 5 days Comments: Call physician if symptoms worsen Return to ED if symptoms worsen Prescriptions: [acetaminophen-hydroco done ([place] 325 mg-5 mg oral tablet)] [ciprofloxacin (Cipro 500 mg Tab)] [ibuprofen (ibuprofen 400 mg Tab)] [ondansetron (Zofran ODT 8 mg Tab-Dis)] Patient Signature Date Clinician/Nurse Signature ___ Date 05/03/18 09:58:03 Normal [facility] Hep Func Panelon 05-03-2018 Albumin mass conc 4.3 g/dL Normal 3.3-5.0 [facility] Comment on above: Performed By: #### 2 472719, 4038818, 7265947, 0855367, 5753500, 20107473, 27553806 ####[facility] [address] [place] [address] Albumin mass conc 1.5 g/dL Normal 1.1-2.2 [facility] Comment on above: Performed By: #### 2 984823, 5984614, 9216813, 8927323, 2755112, 04133815, 97349524 ####[facility] [address] [place] [address] ALP enzyme act/vol 61 Int._Unit/L Normal 21-98 [facility] Comment on above: Performed By: #### 2 142465, 9761221, 3347982, 1866478, 0927010, 58470389, 85727318 ####[facility] [address] [place] [address] ALT No additional P-5'-P enzyme act/vol 11 Int._Unit/L Normal 6-46 [facility] Comment on above: Performed By: #### 2 199158, 9425729, 3960162, 1040991, 9486964, 56979040, 93180072 ####[facility] [address] [place] [address] AST enzyme act/vol 14 Int._Unit/L Normal 5-43 [facility] Comment on above: Performed By: #### 2 033108, 7333286, 7788909, 9602679, 2667131, 10291437, 58044062 ####[facility] [address] [place] [address] Bilirubin mass conc 1.1 mg/dL Normal 0.0-1.1 [facility] Comment on above: Performed By: #### 2 288203, 4887736, 2309506, 4930974, 3889134, 80902688, 00036286 ####[place] [address] [place] [address] Bilirubin.direct mass conc 0.2 mg/dL Normal 0.1-0.4 [facility] Comment on above: Performed By: #### 2 216797, 8595173, 8043379, 7012631, 6540334, 19048137, 41843370 ####[place] [address] [place] [address] Bilirubin.direct mass conc 0.9 mg/dL Normal 0.1-0.9 [facility] Comment on above: Performed By: #### 2 390954, 9636479, 2185506, 7180945, 8503507, 44484428, 85180028 ####James [address] [place] [address] Globulin mass conc (S) 2.9 g/dL Normal 1.4-4.0 [facility] Comment on above: Performed By: #### 2 557200, 4134087, 6941976, 2928190, 6662184, 02331040, 25546676 ####[facility] [address] [place] [address] Protein mass conc 7.2 g/dL Normal 6.0-7.8 [facility] Comment on above: Performed By: #### 2 302609, 1954251, 8005561, 2745238, 2960146, 95722326, 14715475 ####[address] [place] [address] Lactic Acidon 05-03-2018 Lactate mass conc 7.2 mg/dL Normal 4.5-19.8 [facility] Comment on above: Performed By: #### 2 974549 ####[facility] [address] [place] [address] Lipase Levelon 05-03-2018 Lipase enzyme act/vol 22 unit/L Normal 13-58 [facility] Comment on above: Performed By: #### 2 297554, 2654685, 1504121, 6244716, 8095297, 75358515, 07512512 ####[facility] [address] [place] [address] UA With Cult Reflexon 2017 Bacteria LM Ql (Urine sed) 2+ /HPF Abnormal Trace [facility] Comment on above: Performed By: #### 1 0600852, 8437337 ####[address] [address] Bilirubin Ql (U) Negative Normal Negative [facility] Comment on above: Performed By: #### 1 1870684, 4887536 ####[address] [address] Clarity Nom (U) CLOUDY Abnormal Clear [facility] Comment on above: Performed By: #### 1 2597484, 1671981 ####[address] [address] Color Nom (U) YELLOW Normal Yellow [facility] Comment on above: Performed By: #### 1 3910723, 0571760 ####[address] [address] Epithelial cells.squamous LM.HPF #/area (Urine sed) /[HPF] Normal 0-2 [facility] Comment on above: Performed By: #### 1 5831469, 1245126 ####[address] [address] Glucose Test strip mass conc (U) Negative Normal Negative [facility] Comment on above: Performed By: #### 1 6161394, 4587240 ####[address] [address] Hemoglobin Ql (U) 2+ Abnormal Negative [facility] Comment on above: Performed By: #### 1 8765307, 7113473 ####[address] [address] Ketones mass conc (U) Negative Normal Negative [facility] Comment on above: Performed By: #### 1 2413628, 3887386 ####[address] [address] [place].plasma/Lithi um.RBC mass ratio (Bld) 4-20 Normal 0-3 [facility] Comment on above: Performed By: #### 1 5406733, 8459181 ####[address] [address] Nitrite Ql (U) Positive Abnormal Negative [facility] Comment on above: Performed By: #### 1 6737576, 1751022 ####[address] [address] pH (U) 6.0 [pH] 5.0-9.0 [facility] Comment on above: Performed By: #### 1 4666650, 7914389 ####[address] [address] Protein mass conc (U) 1+ Abnormal Negative [facility] Comment on above: Performed By: #### 1 5565444, 7860675 ####[place] [address] Specific gravity Relative Density (U) 1.025 1.005-1.030 [facility] Comment on above: Performed By: #### 1 5223826, 8972759 ####[address] [address] UA Spec Desc Clean Catch Normal [facility] Comment on above: Performed By: #### 1 0203079, 5989583 ####[address] [address] Urobilinogen Qn (U) 0.2 {Carlos'U}/dL Normal 0.0-1.0 [facility] Comment on above: Performed By: #### 1 9613914, 7175369 ####[facility] [address] [place] [address] WBC Auto Ql (U) 2+ Abnormal Negative [facility] Comment on above: Performed By: #### 1 4483724, 3736122 ####[facility] [address] [place] [address] WBC LM.HPF #/area (Urine sed) /[HPF] Abnormal 0-5 [facility] Comment on above: Performed By: #### 1 8869535, 1096158 ####[facility] [address] [place] [address] eGFRon 05-03-2018 GFR/1.73 sq M predicted among blacks MDRD vol rate/area (S/P/Bld) mL/min/{1.73_m2} Normal >=59 [facility] Comment on above: Order Comment: Order added by Discern Expert. Result Comment: eGFR is race adjusted. AA=. Performed By: #### 2 853257, 6874724, 6154452, 6975225, 6251944, 38560161, 44151348 ####[facility] [address] [place] [address] GFR/1.73 sq M predicted among non-blacks MDRD vol rate/area (S/P/Bld) mL/min/{1.73_m2} Normal >=59 [facility] Comment on above: Order Comment: Order added by Discern Expert. Result Comment: Manager Rn del kidney disease could be indicated at eGFR's of less than 60 mL/min/1.73m2. Kidney failure is indicated at less than 15 mL/min/1.73m2. Performed By: #### 2 332457, 9429676, 4656253, 7074797, 6139864, 77289264, 27282137 ####[facility] [address] [place] [address] Coding Summary.on 03-13-2018 Coding Summary. CODING DATE: 03/13/2018 FINAL [facility] STATUS: Home (Routine DC) PAYOR: Jamil APC [...] Campos Date Saved: 03/13/2018 01:48 pm Normal [facility] Auto Diffon 03-10-2018 Basophils #/vol (Bld) 0.8 % Normal 0.0-2.0 [facility] Comment on above: Order Comment: Order Added by Discern Expert. Performed By: #### 2 043000, 4730660, 7728185, 6950979, 22428060, 3844791, 25640503 ####[facility] [address] [place] [address] Basophils/Leukocytes Auto Pure number fraction (Bld) 0.1 E9/L Normal 0.0-0.2 [facility] Comment on above: Order Comment: Order Added by Discern Expert. Performed By: #### 2 851917, 0311523, 3240398, 7795336, 66367286, 2286181, 13916376 ####[facility] [address] [place] [address] Eosinophils/100 WBC (Bld) 1.5 % Normal 0.0-8.0 [facility] Comment on above: Order Comment: Order Added by Discern Expert. Performed By: #### 2 364632, 1422670, 8718455, 7875806, 14709690, 3997186, 50590113 ####[facility] [address] [place] [address] Eosinophils/Leukocyt es Auto Pure number fraction (Bld) 0.1 E9/L Normal 0.0-0.5 [facility] Comment on above: Order Comment: Order Added by Discern Expert. Performed By: #### 2 740868, 9726755, 6225431, 5921891, 31903232, 3347310, 50020780 ####[facility] [address] [place] [address] Lymphocytes/100 WBC (Bld) 26.8 % Normal 14.0-50.0 [facility] Comment on above: Order Comment: Order Added by [employer] Expert. Performed By: #### 2 518995, 9311736, 6743244, 4538516, 37391683, 5971993, 91821505 ####[facility] [address] [place] [address] Lymphocytes/Leukocyt es Auto Pure number fraction (Bld) 2.0 E9/L Normal 1.0-4.0 [facility] Comment on above: Order Comment: Order Added by [employer] Expert. Performed By: #### 2 150332, 7794511, 1495001, 6280339, 80482183, 9105421, 00339189 ####[address] [place] [address] Monocytes/100 WBC (Bld) 8.4 % Normal 4.0-14.0 [facility] Comment on above: Order Comment: Order Added by [employer] Expert. Performed By: #### 2 964345, 9390310, 0089158, 1581553, 60540917, 2089644, 83817346 ####[address] [place] [address] Monocytes/Leukocytes Auto Pure number fraction (Bld) 0.6 E9/L Normal 0.2-1.0 [facility] Comment on above: Order Comment: Order Added by [employer] Expert. Performed By: #### 2 008891, 2928865, 3198389, 4948020, 96561376, 0524232, 80844401 ####[facility] [address] [place] [address] Neutrophils/100 WBC (Bld) 62.5 % Normal 36.0-75.0 [facility] Comment on above: Order Comment: Order Added by [employer] Expert. Performed By: #### 2 566849, 8402533, 3818134, 2343398, 15280847, 0000598, 32699182 ####[facility] [address] [place] [address] Neutrophils/Leukocyt es Auto Pure number fraction (Bld) 4.8 E9/L Normal 2.0-7.5 [facility] Comment on above: Order Comment: Order Added by Discern Expert. Performed By: #### 2 832076, 7552097, 6056298, 3324013, 22043317, 1997201, 17564772 ####[facility] [address] [place] [address] B hCG Qualon 03-10-2018 HCG.beta subunit Qn Negative Normal [facility] Comment on above: Performed By: #### 2 827992, 4823464, 8220072, 5133941, 44827310, 0267302, 90041589 ####[facility] [address] [place] [address] BMPon 03-10-2018 Creatinine mass conc 0.7 mg/dL Normal 0.5-1.3 [facility] Comment on above: Performed By: #### 2 984433, 5107225, 7105030, 3233296, 77576856, 7410763, 08928874 ####[facility] [address] [place] [address] Urea nitrogen mass conc 13 mg/dL Normal 5- [facility] Comment on above: Performed By: #### 2 324455, 9943235, 9707595, 8454190, 59428575, 7200270, 65353903 ####[facility] [address] [place] [address] Urea nitrogen/Creatinine mass ratio 19 No Units Normal 10- [facility] Comment on above: Performed By: #### 2 830365, 1252940, 0175848, 9427101, 90190618, 4508866, 56022884 ####[facility] [address] [place] [address] Anion gap molar conc 11 mmol/L Normal 6-16 [facility] Comment on above: Performed By: #### 2 696899, 6908328, 0209764, 1609316, 05708631, 0022712, 12034101 ####[facility] [address] [place] [address] Calcium mass conc 8.9 mg/dL Normal 8.9-11.1 [facility] Comment on above: Performed By: #### 2 134796, 9420247, 9188675, 6160362, 15598903, 6320060, 73893111 ####[facility] [address] [place] [address] Chloride molar conc 107 mmol/L Normal 101-111 [facility] Comment on above: Performed By: #### 2 037732, 9180094, 3058773, 6176111, 13777165, 1907416, 85076125 ####[facility] [address] [place] [address] CO2 molar conc 23 mmol/L Normal 21-31 [facility] Comment on above: Performed By: #### 2 295270, 1476660, 5230193, 8762073, 68329276, 2531798, 96709348 ####[facility] [address] [place] [address] Glucose mass conc 99 mg/dL Normal 55-199 [facility] Comment on above: Result Comment: If t his glucose result represents a fasting glucose, interpretation should refer to the following reference range: 55-99 mg/dL Performed By: #### 2 618644, 3857368, 7504674, 3373447, 79961398, 8159327, 95633901 ####[facility] [address] [place] [address] Potassium molar conc 3.9 mmol/L Normal 3.5-5.3 [facility] Comment on above: Performed By: #### 2 153615, 1115413, 4684395, 5752222, 96796436, 0058160, 12180667 ####[facility] [address] [place] [address] Sodium molar conc 137 mmol/L Normal 135-145 [facility] Comment on above: Performed By: #### 2 210893, 3154518, 7070814, 2717394, 42929028, 5197306, 47835780 ####[facility] [address] [place] [address] CBC w/ Auto Diffon Erythrocyte distribution width Ratio (RBC) 13.4 % Normal 10.9-14.2 [facility] Comment on above: Performed By: #### 2 272953, 0020467, 6538220, 0251358, 35763314, 6516348, 04652641 #### [facility] [address] [place] [address] Hematocrit Volume Fraction (Bld) 38.8 % Normal 34.0-46.0 [facility] Comment on above: Performed By: #### 2 600319, 5064298, 0440545, 3196363, 74192262, 5669818, 85756583 #### [facility] [address] [place] [address] Hemoglobin mass conc (Bld) 13.3 g/dL Normal 12.0-16.0 [facility] Comment on above: Performed By: #### 2 880665, 0370462, 4498459, 6030598, 59283957, 6245833, 22646819 #### [facility] [address] [place] [address] MCH Entitic mass (RBC) 29.5 pg Normal 27.0-34.0 [facility] Comment on above: Performed By: #### 2 836452, 0903143, 8211727, 2784076, 54146303, 7839321, 25149411 #### [facility] [address] [place] [address] MCHC mass conc (RBC) 34.2 g/dL Normal 31.4-39.3 [facility] Comment on above: Performed By: #### 2 477684, 2245055, 9894078, 1467176, 95715282, 9602731, 18071776 #### [facility] [address] [place] [address] MCV Entitic volume (RBC) 86.4 fL Normal 80.0-100.0 [facility] Comment on above: Performed By: #### 2 879888, 1434150, 4638635, 5247855, 55342014, 1911265, 76961070 #### [facility] [address] [place] [address] Platelet mean volume Entitic volume (Bld) 8.2 fL Normal 6.4-10.8 [facility] Comment on above: Performed By: #### 2 567621, 2493534, 3026965, 7959513, 35609823, 4546289, 44427802 #### [facility] [address] [place] [address] Platelets #/vol (Bld) 221.0 E9/L Normal 150.0-500.0 [facility] Comment on above: Performed By: #### 2 118090, 9147090, 5290779, 5465710, 25280607, 3019312, 47466919 #### [facility] [address] [place] [address] RBC #/vol (Bld) 4.5 E12/L Normal 4.3-5.9 [facility] Comment on above: Performed By: #### 2 584529, 3320085, 0636911, 6602056, 02256621, 2538312, 98417204 #### [facility] [address] [place] [address] WBC corrected for nucl RBC Auto #/vol (Bld) 7.6 E9/L Normal 4.0-11.0 [facility] Comment on above: Performed By: #### 2 582227, 3661144, 2058206, 8058029, 54390223, 5845794, 88611505 #### [facility] [address] [place] [address] ED Clinical Summaryon 2017 ED Clinical Summary [address] [address] ED Clinical Summary Person Information Name: YAEL TALLEY/Jian Age: 17 Years : 2000 12:00 AM Sex: Female Language: Kenyan PCP: Carlie Talley MD Marital Status: Single [...] 03/10/2018 1:26 PM 03/10/2018 1:26 PM ADDRESS: [address] [place] [address] [address] [phone] PHYS DOC NOTES: MEDICAL INFORMATION: Prescriptions Given: Prescription Display omeprazole (omeprazole 40 mg Cap-DR) 40 mg = 1 cap(s), Oral, Daily, X 7 day(s), # 7 cap(s), Refills(s) 0 promethazine (promethazine 25 mg Tab) 25 mg = 1 tab(s), Oral, TID, # 15 tab(s), Refills(s) 0 PATIENT EDUCATION INFORMATION: Instructions: Abdominal Pain, Adult Follow up: With: Address: When: Carlie Talley [address] [place] [address], [place] [phone] [employer] In 3 days 03/13/2018 DIAGNOSIS: Abdominal pain; Nausea & vomiting Normal [facility] ED Note-Physicianon 03-10-20 18 ED Note-Physician Basic Information Time Seen: Washington Maddox PA-C 03/10/2018 10:42 Chief Complaint was seen in ER twednesday. states they gave me meds and i [...] Talley In 3 days 03/13/2018 EDT [address] [id number] Business (1) Additional Instructions: Patient Education Abdominal Pain, Adult Attestation Patient seen and evaluated by the physician assignment desk assistant. Attending physician was present in the emergency department and supervised care. This report was transcribed using voice recognition software. Every effort was made to ensure accuracy, however, inadvertently computerized bioinformatics research technician mistakes may be present. Problem List/Past Medical [...] Lymph Auto: 26.8 % (03/10/18 10:55:00 EDT) [place] Auto: 8.4 % (03/10/18 10:55:00 EDT) Eos Auto: 1.5 % (03/10/18 10:55:00 EDT) Basophil Auto: 0.8 % (03/10/18 10:55:00 EDT) Neutro Absolute: 4.8 E9/L (03/10/18 10:55:00 EDT) Lymph Absolute: 2 E9/L (03/10/18 10:55:00 EDT) [place] Absolute: 0.6 E9/L (03/10/18 10:55:00 EDT) Eos [...] right kidney. Signed By: Duke Joyce M.D. [facility] Comment on above: Result Comment: Elec tronically [...] discomfort you are experiencing: ? Only take mped-vwj-lcqcpbe or prescription medicines as directed by your [...] Document Reviewed: 01/23/2014 ExitCare? Patient Information ?2015 [employer]. This information is not intended to replace advice given to you by your health care provider. Make sure you discuss any questions you have with your health care provider. Normal [facility] ED Patient Summaryon 018 ED Patient Summary [address] [address] Patient Discharge Instructions Person Information Name: GERRIYAEL Age: 17 Years Arrival Date: 03/10/2018 10:30 AM Discharge Diagnosis: Abdominal pain; Nausea & vomiting Primary Care Physician: Carlie Talley MD Provider Information Primary Provider: Cookie Mahmood DO Advanced Bronzer:Washington Maddox PA-C The exam and treatment you received in the Emergency Department were for an urgent problem and are not intended as complete care. It is important that you follow up with a doctor, nurse practitioner, or physician?s assignment desk assistant for ongoing care. If your symptoms become worse or you do not improve as expected and you are unable to reach your usual health care provider, you should return to the Emergency Department. We are available 24 hours a day. YAEL TALLEY has been given the following list of patient education materials, prescriptions and follow-up instructions: Follow-up Instructions: With: Address: When: Carlie Talley [address] [place] [address] Business (1) In 3 days 03/13/2018 In the event that this physician does not participate in your insurance network, please consult with your insurance company to find a nearby participating provider. Patient Education Materials: Abdominal Pain, Adult A MESSAGE TO ALL PATIENTS REGARDING OPIOIDS PRESCRIPTION OPIOIDS: WHAT YOU NEED TO KNOW Prescription opioids can be used to help relieve bbfkltgd-as-ekdskq pain and are often prescribed following a [...] be struggling with addiction, tell your health respite care provider and ask for guidance or call [facility]?S [employer] Helpline at 6-153-548-WQTR. g Source: [place] Department of Health and Human Services/Center for Disease Control & Prevention [facility] Medications Given: Medication Dose Route [...] Information: Re Mustafa Thank you for choosing [facility] Patient Education Materials: Abdominal Pain Many things [...] discomfort you are experiencing: ? Only take xbqh-cwf-gexlyqd or prescription medicines as directed by your [...] Document Reviewed: 01/23/2014 ExitCare? Patient Information ?2015 [employer]. This information is not intended to replace advice given to you by your health care provider. Make sure you discuss any questions you have with your health care provider. GERRI Soliz ALEXUS R , have received the following patient education materials/instructions and have verbalized understanding: Patient Education Materials: Abdominal Pain, Adult Follow-up Instructions: With: Address: When: Carlie Talley [address] [place] [address] [place] [address] Business (1) In 3 days 03/13/2018 Prescriptions: [omeprazole (omeprazole 40 mg Cap-DR)] [promethazine (promethazine 25 mg Tab)] Patient Signature Date Clinician/Nurse Signature ___ Date 03/10/18 13:26:44 Normal [facility] Hep Func Panelon 03-10-2018 Bilirubin.direct mass conc UTC Abnormal 0.1-0.9 [facility] Comment on above: Result Comment: Resu lt verified by Discern Rule. Performed result UTC (Unable to Calculate) was sent as an Alpha code due the inability to calculate a valid numeric value. Performed By: #### 2 992030, 6270168, 0974283, 0906937, 19362668, 9093917, 76864958 ####[facility] [address] [place] [address] Albumin mass conc 1.4 g/dL Normal 1.1-2.2 [facility] Comment on above: Performed By: #### 2 458351, 4513537, 5262927, 1715461, 38225657, 6244695, 01027166 ####[facility] [address] [place] [address] Albumin mass conc 4.2 g/dL Normal 3.3-5.0 [facility] Comment on above: Performed By: #### 2 753965, 6937424, 1397913, 5403097, 90337617, 3806486, 32183351 ####[facility] [address] [place] [address] ALP enzyme act/vol 55 Int._Unit/L Normal 21-98 [facility] Comment on above: Performed By: #### 2 030799, 8037475, 1105974, 6588568, 26244074, 6682145, 41412317 ####[facility] [address] [place] [address] ALT No additional P-5'-P enzyme act/vol 16 Int._Unit/L Normal 6-46 [facility] Comment on above: Performed By: #### 2 913003, 6377230, 9192449, 6905664, 14330839, 7578757, 15203548 ####[facility] [address] [place] [address] AST enzyme act/vol 16 Int._Unit/L Normal 5-43 [facility] Comment on above: Performed By: #### 2 142986, 9045783, 6179432, 4081850, 70010690, 2795318, 77369089 ####[facility] [address] [place] [address] Bilirubin mass conc 0.8 mg/dL Normal 0.0-1.1 [facility] Comment on above: Performed By: #### 2 389729, 1907931, 1846685, 0472837, 47901548, 2057369, 55664823 ####[facility] [address] [place] [address] Bilirubin.direct mass conc mg/dL Normal 0.1-0.4 [facility] Comment on above: Performed By: #### 2 137620, 2370416, 0286665, 9575487, 86627725, 3508439, 81776420 ####[facility] [address] [place] [address] Globulin mass conc (S) 3.0 g/dL Normal 1.4-4.0 [facility] Comment on above: Performed By: #### 2 769339, 6679642, 1711251, 0115301, 60020770, 7646265, 85020261 ####[facility] [address] [place] [address] Protein mass conc 7.2 g/dL Normal 6.0-7.8 [facility] Comment on above: Performed By: #### 2 603545, 3493266, 1885967, 0855946, 54333380, 4409770, 66831123 ####[facility] [address] [place] [address] Lipase Levelon 03-10-2018 Lipase enzyme act/vol 23 unit/L Normal 13-58 [facility] Comment on above: Performed By: #### 2 783114, 0912137, 8679601, 6441657, 28185370, 3004475, 08001700 #### [facility] [address] [place] [address] Progress Note-Nurseon 2017 Protein mass conc Pt A&OX4, RR even an d unlabored, skin w/d/i, NAD. Vitals stable. Discharge instruction given to patient with work/school note and scripts x2, verbalized understanding. Discharged home, ambulatory with steady gait, denied any other needs at this time. Normal [facility] US Gallbladderon 03-10-2018 US Gallbladder Exam Date/Time: [...] Duke Joyce M.D. Transcribed by: dejan Technologist: REILLY Gao [facility] eGFRon 03-10-2018 GFR/1.73 sq M predicted among blacks MDRD vol rate/area (S/P/Bld) mL/min/{1.73_m2} Normal >=59 [facility] Comment on above: Order Comment: Order added by Discern Expert. Result Comment: eGFR is race adjusted. AA=. Performed By: #### 2 508086, 4580899, 7415361, 2650295, 85759757, 8791265, 27834615 ####[facility] [address] [place] [address] GFR/1.73 sq M predicted among non-blacks MDRD vol rate/area (S/P/Bld) mL/min/{1.73_m2} Normal >=59 [facility] Comment on above: Order Comment: Order added by Discern Expert. Result Comment: Manager Rn del kidney disease could be indicated at eGFR's of less than 60 mL/min/1.73m2. Kidney failure is indicated at less than 15 mL/min/1.73m2. Performed By: #### 2 775240, 1645182, 0101387, 6945866, 48993766, [id number], [id number] ####[facility] [id number] [place] [address] Coding Summary.on 03-09-2018 Coding Summary. CODING DATE: 03/09/2018 FINAL [facility] STATUS: Home (Routine DC) PAYOR: [place] ADMIT DX: REASON FOR VISIT DX: R10.33 [...] Campos Date Saved: 03/09/2018 12:14 pm Normal [facility] ED Clinical Summaryon 2017 ED Clinical Summary [place] [id number] ED Clinical Summary Person Information Name: YAEL TALLEY/[place] Age: 17 Years : 2000 12:00 AM Sex: Female Language: Kenyan PCP: NONE, XXXX Marital Status: Single Phone: [phone] Visit Id: Visit Reason: Back pain; R [...] 03/08/2018 3:40 PM 03/08/2018 3:40 PM ADDRESS: [address] [place] [address] [address] [facility] [id number] PHYS DOC NOTES: MEDICAL INFORMATION: Prescriptions Given: Prescription Display dicyclomine (dicyclomine 20 mg Tab) 20 mg = 1 tab(s), Oral, QID, X 7 day(s), # 28 tab(s), Refills(s) 0 ondansetron (Zofran ODT 4 mg Tab-Dis) 4 mg = 1 tab(s), Oral, q6hr, # 10 tab(s), Refills(s) 0 PATIENT EDUCATION INFORMATION: Instructions: Abdominal Pain, Adult Follow up: With: Address: When: Virgil Diggs [address] [place] [address], [place] [address] Business (8) In 3 days 03/11/2018 DIAGNOSIS: Abdominal pain Normal [facility] ED Note-Nursingon 03-08-2018 ED Note-Nursing Patient: LILLI TALLEY Age: 17 years Sex: Female : 2000 Associated Diagnoses: None Author: Macy Buenrostro RN Progress Note Relays that she is feeling a little bit better. NATHANIEL aware, awaiting plan of care. Normal [facility] ED Note-Nursing Patient: LILLI TALLEY Age: 17 years Sex: Female : 2000 Associated Diagnoses: None Author: Macy Buenrostro RN Progress Note 1500: Reports some nausea after previous med, PA aware, orders rec'd. Normal [facility] ED Note-Physicianon 03-08-20 ED Note-Physician Basic Information [...] the name of Dr. Diggs who is container finisher for family medicine and advised the pain [...] q6hr Follow-up With When Contact Information Virgil Diggs In 3 days 03/11/2018 EDT [address] [place] [address] [facility] (1) Additional Instructions: Patient Education [...] The case was discussed with: the physician assignment desk assistant, Herberth Hale PA-C. Procedures: I directly supervised [...] Diagnostic Results No qualifying data available. Normal [facility] Comment on above: Result [...] discomfort you are experiencing: ? Only take drvw-amz-lbjxyfp or prescription medicines as directed by your [...] Document Reviewed: 01/23/2014 ExitCare? Patient Information ?2014 [employer]. This information is not intended to replace advice given to you by your health care provider. Make sure you discuss any questions you have with your health care provider. Normal [facility] ED Patient Summaryon 018 ED Patient Summary [address] [address] Patient Discharge Instructions Person Information Name: YAEL TALLEY Age: 17 Years Arrival Date: 03/08/2018 1:44 PM Discharge Diagnosis: Abdominal pain Primary Care Physician: NONE, XXXX Provider Information Primary Provider: Madhavi Scruggs, Parag Hernandez Advanced Bronzer:Herberth Hale PA-C The exam and treatment you received in the Emergency Department were for an urgent problem and are not intended as complete care. It is important that you follow up with a doctor, nurse practitioner, or physician?s assignment desk assistant for ongoing care. If your symptoms become worse or you do not improve as expected and you are unable to reach your usual health care provider, you should return to the Emergency Department. We are available 24 hours a day. YAEL TALLEY has been given the following list of patient education materials, prescriptions and follow-up instructions: Follow-up Instructions: With: Address: When: Virgil Diggs [address] [place] [address], [facility], [facility] [place] [address] Business (1) In 3 days 03/11/2018 In the event that this physician does not participate in your insurance network, please consult with your insurance company to find a nearby participating provider. Patient Education Materials: Abdominal Pain, Adult A MESSAGE TO ALL PATIENTS REGARDING OPIOIDS PRESCRIPTION OPIOIDS: WHAT YOU NEED TO KNOW Prescription opioids can be used to help relieve mntriqml-vf-afweta pain and are often prescribed following a [...] be struggling with addiction, tell your health respite care provider and ask for guidance or call [facility]?S National Helpline at 1-063-851-FWWU. u Source: [place] Department of Health and Human Services/Center for Disease Control & Prevention [facility] Medications Given: Medication Dose Route [...] Comment: Pharmacy Information: Thank you for choosing [facility] Patient Education Materials: Abdominal Pain Many things [...] discomfort you are experiencing: ? Only take kxaf-hjv-pwdyjhr or prescription medicines as directed by your [...] Document Reviewed: 01/23/2014 ExitCare? Patient Information ?2014 [employer]. This information is not intended to replace advice given to you by your health care provider. Make sure you discuss any questions you have with your health care provider. GERRI Soliz ALEXUS R , have received the following patient education materials/instructions and have verbalized understanding: Patient Education Materials: Abdominal Pain, Adult Follow-up Instructions: With: Address: When: Virgil Diggs [address] [place] [address], [facility], [place] [address] [facility] (1) In 3 days 03/11/2018 Prescriptions: [dicyclomine (dicyclomine 20 mg Tab)] [ondansetron (Zofran ODT 4 mg Tab-Dis)] Patient Signature Date Clinician/Nurse Signature ___ Date 03/08/18 15:40:08 Normal [facility] UA With Cult Reflexon 2017 Bilirubin Ql (U) Negative Normal Negative [facility] Comment on above: Performed By: #### 1 [id number] #### [facility] [address] [place] [address] Clarity Nom (U) CLOUDY Abnormal Clear [facility] Comment on above: Performed By: #### 1 [id number] #### [facility] [address] [place] [address] Color Nom (U) YELLOW Normal Yellow [facility] Comment on above: Performed By: #### 1 [id number] #### [facility] [address] [place] [address] Crystals LM Ql (Urine sed) Present Normal [facility] Comment on above: Performed By: #### 1 [id number] #### [facility] [address] [place] [address] Epithelial cells.squamous LM.HPF #/area (Urine sed) 5-8 Normal 0-2 [facility] Comment on above: Performed By: #### 1 [id number] #### [facility] [address] [place] [address] Glucose Test strip mass conc (U) Negative Normal Negative [facility] Comment on above: Performed By: #### 1 [id number] #### [facility] [address] [place] [address] Hemoglobin Ql (U) Negative Normal Negative [facility] Comment on above: Performed By: #### 1 [id number] #### [facility] [address] [place] [address] Ketones mass conc (U) Negative Normal Negative [facility] Comment on above: Performed By: #### 1 [id number] #### [facility] [address] [place] [address] [place].plasma/Lithi um.RBC mass ratio (Bld) 0-3 Normal 0-3 [facility] Comment on above: Performed By: #### 1 [id number] #### [facility] [address] [place] [address] Mucus Ql (Urine sed) TRACE Normal [facility] Comment on above: Performed By: #### 1 [id number] #### [facility] [address] [place] [address] Nitrite Ql (U) Negative Normal Negative [facility] Comment on above: Performed By: #### 1 [id number] #### [facility] [address] [place] [address] pH (U) 7.0 [pH] 5.0-9.0 [facility] Comment on above: Performed By: #### 1 [id number] #### [facility] [address] [place] [address] Protein mass conc (U) Negative Normal Negative [facility] Comment on above: Performed By: #### 1 [id number] #### [facility] [address] [place] [address] Specific gravity Relative Density (U) 1.020 1.005-1.030 [facility] Comment on above: Performed By: #### 1 [id number] #### [facility] [address] [place] [address] UA Spec Desc Clean Catch Normal [facility] Comment on above: Performed By: #### 1 [id number] #### [facility] [address] [place] [address] Urobilinogen Qn (U) 0.2 {Carlos'U}/dL Normal 0.0-1.0 [facility] Comment on above: Performed By: #### 1 [id number] #### [facility] [address] [place] [address] WBC Auto Ql (U) Negative Normal Negative [facility] Comment on above: Performed By: #### 1 [id number] #### [facility] [address] [place] [address] WBC LM.HPF #/area (Urine sed) 0-5 Normal 0-5 [facility] Comment on above: Performed By: #### 1 [id number] #### [facility] [address] [place] [address] ED Noteon 08-01-2017 HIM IP Note OR [employer] Senior Specialist Normal [facility] ED Provider Noteon 8 HIM IP Note OR [employer] Senior Specialist Normal [facility] H Pylori Breath Teston 06-26 H Pylori Breath Test Negative Normal Negative [facility] Comment on above: Result Comment: (NOT [...] spiral organisms such as Helicobacter heilmanii.Performed by [employer],[address] [place] [id number] [employer], Yan Pringle MD, Lab. DirectorPerformed at [facility] [address] [place] [address] ([phone]) Performed By: #### C DP, CP, LIP ####[facility] [facility] [place] [address]([phone] XR ABDOMEN LIMITED (KUB)on 0 06-24-2017 XR ABDOMEN LIMITED (KUB) KUB 2 filmsHISTORY: Calcium oxalate crystals in the urine. Right flank pain with percussion. Acute cystitis with hematuria, flank pain.No comparisonFINDINGS: Moderate stool throughout the colon with no renal ureteral or bladder calculi.IMPRESSION: Normal KUB.Interpreted by:MARYAN Flores Jr.igned by:Alex Gomez Jr., MD06/24/17inal result Normal [facility] Cult,Urineon 06-22-2017 Cult,Urine Specimen Description .URINE, MIDSTREAM Performed at [facility] [address] [place] [address] [phone] Special Requests NOT REPORTEDCulture NO SIGNIFICANT GROWTH Performed at [address] [id number] [phone] Report Status FINAL 06/22/2017 Normal [facility] Comment on above: Performed By: #### U RC ####[place] [id number] [place] [address] [facility] [facility] [place] [phone] CBC with Diffon 06-21-2017 Abs. Basophil 0.00 k/uL Normal 0.0-0.2 [facility] Comment on above: Result Comment: Perf ormed at [facility] [address] [facility] [place] [address] Performed By: #### C DP, CP, LIP ####[facility] [place] [address] Abs.Neutrophil (Seg) 13.50 k/uL High 2.5-7.0 [facility] Comment on above: Performed By: #### C DP, CP, LIP ####[place] [address] [place] [address] Auto Diff Performed YES Normal [facility] Comment on above: Performed By: #### C DP, CP, LIP ####[place] [address] [place] [address] Basophils/100 WBC Auto (Bld) 0 % Normal 0-2 [facility] Comment on above: Performed By: #### C DP, CP, LIP ####[place] [address] [place] [address] Eosinophils 0.20 10*3/uL Normal 0.0-0.4 [facility] Comment on above: Performed By: #### C DP, CP, LIP ####[place] [address] [place] [address] Eosinophils/100 leukocytes 1 % Normal 0-5 [facility] Comment on above: Performed By: #### C DP, CP, LIP ####[place] [address] [address] Erythrocyte distribution width Auto Ratio (RBC) 13.7 % Normal 12.1-15.2 [facility] Comment on above: Performed By: #### C DP, CP, LIP ####[place] [address] [place] [address] Erythrocytes (RBC) 5.00 10*6/uL Normal 4.0-5.2 [facility] Comment on above: Performed By: #### C DP, CP, LIP ####[facility] [place] [address] Hematocrit (HCT) 42.4 % Normal 36-46 [facility] Comment on above: Performed By: #### C DP, CP, LIP ####[facility] [place] [place] [address] Hemoglobin mass conc (Bld) 14.4 g/dL Normal 12.0-16.0 [facility] Comment on above: Performed By: #### C DP, CP, LIP ####[facility] [place] [address] Lymphocytes 1.40 10*3/uL Normal 1.2-5.2 [facility] Comment on above: Performed By: #### C DP, CP, LIP ####[facility] [place] [address] Lymphocytes/100 leukocytes 9 % Low 15-40 [facility] Comment on above: Performed By: #### C DP, CP, LIP ####[facility] [place] [address] MCH 28.7 pg Normal 25-35 [facility] Comment on above: Performed By: #### C DP, CP, LIP ####[facility] [place] [address] MCHC mass conc (RBC) 33.9 g/dL Normal 31-37 [facility] Comment on above: Performed By: #### C DP, CP, LIP ####[facility] [place] [address] MCV 84.8 fL Normal 78-102 [facility] Comment on above: Performed By: #### C DP, CP, LIP ####[facility] [place] [address] Monocytes 1.00 10*3/uL Normal 0.0-1.0 [facility] Comment on above: Performed By: #### C DP, CP, LIP ####[facility] [place] [place] [address] Monocytes/100 leukocytes 6 % Normal 4-8 [facility] Comment on above: Performed By: #### C DP, CP, LIP ####[facility] [place] [place] [address] Neutrophil (Seg) 84 % High 47-75 [facility] Comment on above: Performed By: #### C DP, CP, LIP ####[facility] [place] [address] Platelets 226 10*3/uL Normal 140-450 [facility] Comment on above: Performed By: #### C DP, CP, LIP ####[facility] [address] WBC (Leukocytes) 16.1 10*3/uL High 4.5-13.5 [facility] Comment on above: Performed By: #### C DP, CP, LIP ####[facility] [facility] [place] [address] Erythrocyte morphology NOT REPORTED Normal [facility] Comment on above: Performed By: #### C DP, CP, LIP ####[facility] [address] Erythrocytes (RBC) NOT REPORTED Normal [facility] Comment on above: Performed By: #### C DP, CP, LIP ####[facility] [place] [address] Granulocytes/100 WBC (Bld) NOT REPORTED Normal 0.00-0.30 [facility] Comment on above: Performed By: #### C DP, CP, LIP ####[facility] [place] [place] [address] Immature granulocytes #/vol (Bld) NOT REPORTED Normal 0 [facility] Comment on above: Performed By: #### C DP, CP, LIP ####[facility] [place] [address] Platelet mean volume (PMV) NOT REPORTED Normal 6.0-12.0 [facility] Comment on above: Performed By: #### C DP, CP, LIP ####[facility] [place] [address] Platelets NOT REPORTED Normal [facility] Comment on above: Performed By: #### C DP, CP, LIP ####[facility] [place] [address] WBC Morphology NOT REPORTED Normal [facility] Comment on above: Performed By: #### C DP, CP, LIP ####[facility] [place] [address] Comp Metabolic Profon 2017 (cont.) Normal [facility] Comment on above: Result Comment: Aver age GFR for <20 years old not available.Chronic Kidney Disease: <60 mL/min/1.73sq mKidney failure: <15 mL/min/1.73sq meGFR calculated using average adult body mass. Additional eGFR calculator available at:http://www.[employer]/multiple_crcl_2011.htmPerformed at [facility] [address] [place] [address] [phone] Performed By: #### C DP, CP, LIP ####[facility] [place] [address] Alanine aminotransferase (ALT) 12 U/L Normal 5-33 [facility] Comment on above: Performed By: #### C DP, CP, LIP ####[facility] [place] [address] Albumin 4.0 g/dL Normal 3.5-5.2 [facility] Comment on above: Performed By: #### C DP, CP, LIP ####[place] [address] [place] [address] Alkaline Phos 70 U/L Normal 35-104 [facility] Comment on above: Performed By: #### C DP, CP, LIP ####[place] [address] [facility] [place] [address] Anion gap 14 mmol/L Normal 8-16 [facility] Comment on above: Performed By: #### C DP, CP, LIP ####[place] [address] [place] [address] Aspartate aminotransferase (AST) 10 U/L Normal <32 [facility] Comment on above: Performed By: #### C DP, CP, LIP ####[address] [place] [address] Bilirubin Ql (U) 0.62 mg/dL Normal 0.3-1.2 [facility] Comment on above: Performed By: #### C DP, CP, LIP ####[place] [address] [place] [address] BUN/CRE Ratio 16 Normal 9-20 [facility] Comment on above: Performed By: #### C DP, CP, LIP ####[place] [address] [place] [address] Calcium 9.0 mg/dL Normal 8.6-10.4 [facility] Comment on above: Performed By: #### C DP, CP, LIP ####[place] [address] [place] [address] Chloride 107 mmol/L Normal 98-107 [facility] Comment on above: Performed By: #### C DP, CP, LIP ####[place] [address] [facility] [address] CO2 23 mmol/L Normal 20-31 [facility] Comment on above: Performed By: #### C DP, CP, LIP ####[facility] [facility] [address] Creatinine 0.61 mg/dL Normal 0.50-0.90 [facility] Comment on above: Performed By: #### C DP, CP, LIP ####[facility] [facility] [place] [address] eGFR (non-black) Pediatric GFR requir es additional information. Refer to NKDEP website for Normal >60 [facility] Comment on above: Result Comment: calc ulator. Performed By: #### C DP, CP, LIP ####[facility] [facility] [place] [address] Glucose mass conc 105 mg/dL High 70-99 [facility] Comment on above: Performed By: #### C DP, CP, LIP ####[facility] [facility] [address] Potassium molar conc 3.5 mmol/L Low 3.7-5.3 [facility] Comment on above: Performed By: #### C DP, CP, LIP ####[facility] [facility] [place] [address] Protein 6.5 g/dL Normal 6.4-8.3 [facility] Comment on above: Performed By: #### C DP, CP, LIP ####[facility] [facility] [place] [address] Sodium 144 mmol/L Normal 135-144 [facility] Comment on above: Performed By: #### C DP, CP, LIP ####[facility] [facility] [place] [address] Urea nitrogen 10 mg/dL Normal 6-20 [facility] Comment on above: Performed By: #### C DP, CP, LIP ####[facility] [place] [address] Albumin/Globulin Ratio NOT REPORTED Normal 1.0-2.5 [facility] Comment on above: Performed By: #### C DP, CP, LIP ####[facility] [place] [address]([phone] eGFR (non-black) NOT REPORTED Normal >60 [facility] Comment on above: Performed By: #### C DP, CP, LIP ####[facility] [place] [address] Staging: NOT REPORTED Normal [facility] Comment on above: Performed By: #### C DP, CP, LIP ####[place] [address] [place] [address]([phone] ED Noteon 06-21-2017 HIM IP Note OR [employer] Senior Specialist Normal [facility] ED Provider Noteon 8 HIM IP Note OR [employer] Senior Specialist Normal [facility] HCG, ,Urineon 06-21 HCG.beta subunit ( test) Ql (U) Negative Normal NEG [facility] Comment on above: Result Comment: Perf ormed at [facility] [address] [place] [address] ([phone]) Performed By: #### U HCG, UA, UMICAO ####[facility] [place] [address]([phone]) Lipaseon 06-21-2017 Lipase 22 U/L Normal 13-60 [facility] Comment on above: Result Comment: Perf ormed at [facility] [address] [place] [address] ([phone]) Performed By: #### C DP, CP, LIP ####[facility] [place] [address]([phone]) Urinalysis, Routineon 2017 Acetaminophen mass conc Negative Normal NEG [facility] Comment on above: Performed By: #### U HCG, UA, UMICAO ####[place] [address] [place] [address] Bilirubin (direct) Negative Normal NEG [facility] Comment on above: Performed By: #### U HCG, UA, UMICAO ####[place] [address] [facility] [place] [address] Comment Normal [facility] Comment on above: Result Comment: Perf ormed at [facility] [address] [facility] [place] [address] Performed By: #### U HCG, UA, UMICAO ####[place] [address] [place] [address] Hemoglobin mass conc (Bld) 2+ Abnormal NEG [facility] Comment on above: Performed By: #### U HCG, UA, UMICAO ####[address] [place] [address] Nitrite,Ur Negative Normal NEG [facility] Comment on above: Performed By: #### U HCG, UA, UMICAO ####[place] [address] [place] [address] Turbidity HAZY Abnormal CLEAR [facility] Comment on above: Performed By: #### U HCG, UA, UMICAO ####[place] [address] [facility] [place] [address] Urine, color YELLOW Normal YEL [facility] Comment on above: Performed By: #### U HCG, UA, UMICAO ####[place] [address] [facility] [place] [address] Urine, glucose presence Negative Normal NEG [facility] Comment on above: Performed By: #### U HCG, UA, UMICAO ####[place] [address] [facility] [address] Urine, leukocyte esterase presence 3+ Abnormal NEG [facility] Comment on above: Performed By: #### U HCG, UA, UMICAO ####[facility] [place] [address] Urine, pH 5.0 [pH] Normal 5.0-8.0 [facility] Comment on above: Performed By: #### U HCG, UA, UMICAO ####[place] [address] [address] [place] [address] Urine, protein presence TRACE Abnormal NEG [facility] Comment on above: Performed By: #### U HCG, UA, UMICAO ####[place] [address] [facility] [address] Urine, specific gravity 1.025 Normal 1.005-1.030 [facility] Comment on above: Performed By: #### U HCG, UA, UMICAO ####[address] [address] [place] [address] Urobilinogen,Ur Normal Normal NORM [facility] Comment on above: Performed By: #### U HCG, UA, UMICAO ####[place] [address] [place] [address] Urinalysis,Microon 8 ----- Normal [facility] Comment on above: Performed By: #### U HCG, UA, UMICAO ####[place] [place] [address] [place] [address] Mucus Strands 2+ Abnormal NONE [facility] Comment on above: Result Comment: Perf ormed at [facility] [address] [place] [address] Performed By: #### U HCG, UA, UMICAO ####[place] [address] [address] [facility] [place] [address] Urine WBC's 20 TO 50 Normal 0 [facility] Comment on above: Performed By: #### U HCG, UA, UMICAO ####[facility] [place] [address] Urine, bacteria in sediment 2+ Abnormal NONE [facility] Comment on above: Performed By: #### U HCG, UA, UMICAO ####[facility] [place] [address] Urine, crystals in sediment 1+ /HPF Abnormal NONE [facility] Comment on above: Result Comment: CALC IUM OXALATE Performed By: #### U HCG, UA, UMICAO ####[place] [address] [address] [place] [address] Urine, epithelial cells in sediment 2 TO 5 Normal [facility] Comment on above: Performed By: #### U HCG, UA, UMICAO ####[address] [place] [address] Urine, erythrocytes 0 TO 2 Normal 0-2 [facility] Comment on above: Performed By: #### U HCG, UA, UMICAO ####[place] [address] [address] [place] [address] Epithelial, Renal NOT REPORTED Normal 0 [facility] Comment on above: Performed By: #### U HCG, UA, UMICAO ####[facility] [address] Other Observations NOT REPORTED Normal NREQ [facility] Comment on above: Performed By: #### U HCG, UA, UMICAO ####[facility] [place] [address] Trichomonas NOT REPORTED Normal NONE [facility] Comment on above: Performed By: #### U HCG, UA, UMICAO ####[place] [address] [address] [facility] [address], [place] [id number] Urine, amorphous sediment presence in sediment NOT REPORTED Normal NONE [facility] Comment on above: Performed By: #### U HCG, UA, UMICAO ####[facility] [facility] [place] [address] Urine, casts in sediment NOT REPORTED Normal [facility] Comment on above: Performed By: #### U HCG, UA, UMICAO ####[facility] [facility] [address] Urine, yeast presence in sediment NOT REPORTED Normal NONE [facility] Comment on above: Performed By: #### U HCG, UA, UMICAO ####[facility], [place] [id number] Vital Signs Date Time Vital Sign Value Performing Clinician Facility 07-12-2024 14:26-0500 Body mass index (BMI) [Ratio] 33.95 kg/m2 Deshawn Rose DO Work Phone: [facility] 07-12-2024 14:26-0500 Body weight 89.72 kg Deshawn Rose DO Work Phone: [facility] 07-12-2024 14:26-0500 Diastolic blood pressure 70 mm[Hg] Deshawn Rose DO Work Phone: [facility] 07-12-2024 14:26-0500 Systolic blood pressure 110 mm[Hg] Deshawn Rose DO Work Phone: [facility] 05-18-2024 09:46-0500 Body mass index (BMI) [Ratio] 33.07 kg/m2 Tete Multani MD Work Phone: [facility] 05-18-2024 09:46-0500 Body weight 87.4 kg Tete Multani MD Work Phone: [facility] 05-18-2024 09:46-0500 Diastolic blood pressure 81 mm[Hg] Tete Multani MD Work Phone: [facility] 05-18-2024 09:46-0500 Systolic blood pressure 129 mm[Hg] Tete Multani MD Work Phone: [facility] 02-10-2024 08:32-0400 Body mass index (BMI) [Ratio] 31.9 kg/m2 Retadevin Sanford CENTRIFUGAL CASTING MACHINE OPERATOR.PUBLIC ADDRESS SYSTEM OPERATOR Work Phone: [facility] 02-10-2024 08:32-0400 Body temperature 97.59 [degF] Reta Sanford CENTRIFUGAL CASTING MACHINE OPERATOR.PUBLIC ADDRESS SYSTEM OPERATOR Work Phone: [facility] 02-10-2024 08:32-0400 Body weight 84.3 kg Reta Sanford CENTRIFUGAL CASTING MACHINE OPERATOR.PUBLIC ADDRESS SYSTEM OPERATOR Work Phone: [facility] 02-10-2024 08:32-0400 Diastolic blood pressure 80 mm[Hg] Reta Sanford CENTRIFUGAL CASTING MACHINE OPERATOR.PUBLIC ADDRESS SYSTEM OPERATOR Work Phone: [facility] 02-10-2024 08:32-0400 Heart rate 79 /min Reta Sanford CENTRIFUGAL CASTING MACHINE OPERATOR.PUBLIC ADDRESS SYSTEM OPERATOR Work Phone: [facility] 02-10-2024 08:32-0400 Respiratory rate 18 /min Reta Sanford CENTRIFUGAL CASTING MACHINE OPERATOR.PUBLIC ADDRESS SYSTEM OPERATOR Work Phone: [facility] 02-10-2024 08:32-0400 SaO2% (BldA) [Mass fraction] 100 % Reta Sanford CENTRIFUGAL CASTING MACHINE OPERATOR.PUBLIC ADDRESS SYSTEM OPERATOR Work Phone: [facility] 02-10-2024 08:32-0400 Systolic blood pressure 123 mm[Hg] Reta Sanford CENTRIFUGAL CASTING MACHINE OPERATOR.PUBLIC ADDRESS SYSTEM OPERATOR Work Phone: [facility] 02-08-2024 14:33-0400 Body mass index (BMI) [Ratio] 32.51 kg/m2 Deshawn Rose DO Work Phone: [facility] 02-08-2024 14:33-0400 Body weight 85.91 kg Deshawn Rose DO Work Phone: [facility] 02-08-2024 14:33-0400 Diastolic blood pressure 70 mm[Hg] Deshawn Rose DO Work Phone: [facility] 02-08-2024 14:33-0400 Systolic blood pressure 110 mm[Hg] Deshawn Rose DO Work Phone: [facility] 01-16-2024 09:56-0400 Body height 162.6 cm Norma Nicholas PA-C Work Phone: [facility] 01-16-2024 09:56-0400 Body mass index (BMI) [Ratio] 31.07 kg/m2 Norma Nicholas PA-C Work Phone: [facility] 01-16-2024 09:56-0400 Body weight 82.1 kg Norma Nicholas PA-C Work Phone: [facility] 12-29-2023 11:29-0400 Body height 162.6 cm [facility] Comment on above: patient reported 12-29-2023 11:29-0400 Body mass index (BMI) [Ratio] 30.04 kg/m2 [facility] 12-29-2023 11:29-0400 Body weight 79.38 kg [facility] Comment on above: patient reported 12-29-2023 11:29-0400 Heart rate 64 /min [facility] Comment on above: patient counted 12-22-2023 12:00-0400 Body mass index (BMI) [Ratio] 30.65 kg/m2 Tete Multani MD Work Phone: [facility] 12-22-2023 12:00-0400 Body temperature 98.01 [degF] Tete Multani MD Work Phone: [facility] 12-22-2023 12:00-0400 Body weight 81 kg Tete Multani MD Work Phone: [facility] 12-22-2023 12:00-0400 Diastolic blood pressure 77 mm[Hg] Tete Multani MD Work Phone: [facility] 12-22-2023 12:00-0400 Heart rate 85 /min Tete Multani MD Work Phone: [facility] 12-22-2023 12:00-0400 Respiratory rate 18 /min Tete Multani MD Work Phone: [facility] 12-22-2023 12:00-0400 SaO2% (BldA) [Mass fraction] 100 % Tete Multani MD Work Phone: [facility] Comment on above: RA 12-22-2023 12:00-0400 Systolic blood pressure 127 mm[Hg] Tete Multani MD Work Phone: [facility] 11-08-2023 13:25-0400 Body height 162.6 cm Tete Multani MD Work Phone: [facility] 11-08-2023 13:25-0400 Body mass index (BMI) [Ratio] 29.18 kg/m2 Tete Multani MD Work Phone: [facility] 11-08-2023 13:25-0400 Body weight 77.11 kg Tete Multani MD Work Phone: [facility] 11-03-2023 23:00-0400 Diastolic blood pressure 84 mm[Hg] Shauna Patel DO Work Phone: [facility] 11-03-2023 23:00-0400 Heart rate 73 /min Shauna Patel DO Work Phone: [facility] 11-03-2023 23:00-0400 Respiratory rate 18 /min Shauna Patel DO Work Phone: [facility] 11-03-2023 23:00-0400 SaO2% (BldA) [Mass fraction] 94 % Shauna Ptael DO Work Phone: [facility] 11-03-2023 23:00-0400 Systolic blood pressure 116 mm[Hg] Shauna Patel DO Work Phone: [facility] 11-03-2023 20:20-0400 Body height 162.6 cm Shauna Patel DO Work Phone: [facility] 11-03-2023 20:20-0400 Body mass index (BMI) [Ratio] 28.32 kg/m2 Shauna Samayoaft DO Work Phone: [facility] 11-03-2023 20:20-0400 Body temperature 98.91 [degF] Shauna Samayoaft DO Work Phone: [facility] 11-03-2023 20:20-0400 Body weight 74.84 kg Shauna Patel DO Work Phone: [facility] 09-13-2023 12:22-0400 Body height 162.6 cm Narda Faria MD Work Phone: [facility] 09-13-2023 12:22-0400 Body weight 77.11 kg Narda Faria MD Work Phone: [facility] 09-17-2022 04:06-0400 Body weight 84.[address] DESHAWN ROSE . [facility] Comment on above: Performed By: #### CT/NGNA #### [facility] [address] [place] [address] Dr. Phill Og Encounters Encounter Date Encounter Type Care Provider Facility Start: 07-12-2024 End: 07-12-2024 ambulatory DESHAWN ROSE Not Available Start: 07-12-2024 End: 07-12-2024 flow sheet Deshawn Rose DO Work Phone: [facility] Comment on above: First trimester preg dominick; 11 weeks gestation of Start: 06-14-2024 End: 06-14-2024 ambulatory DESHAWN ROSE Not Available Start: 06-14-2024 End: 06-14-2024 Office outpatient visit 5 minutes [facility] Rose Nurse [facility] Comment on above: [place]: 7w1d Start: 05-18-2024 End: 05-18-2024 Patient encounter procedure Tete Multani MD Work Phone: Gynecology Comment on above: Breast pain (Primary Dx) Start: 05-18-2024 End: 05-18-2024 ambulatory TETE MULTANI Facility:[facility] Start: 05-18-2024 End: 05-18-2024 Subsequent hospital visit by physician Clinic Imaging Mammo Main Mammography Comment on above: Breast pain [N64.4] Start: 05-11-2024 End: 05-11-2024 Patient encounter procedure Tete Multani MD Work Phone: [facility] Comment on above: Breast pain (Primary Dx) Start: 05-11-2024 End: 05-11-2024 ambulatory TETE MULTANI Facility:[facility] Start: 02-10-2024 End: 02-10-2024 ambulatory RETA SANFORD Facility:[facility] Start: 02-10-2024 End: 02-10-2024 Patient encounter procedure Reta Sanford CENTRIFUGAL CASTING MACHINE OPERATOR.PUBLIC ADDRESS SYSTEM OPERATOR Work Phone: [facility] Comment on above: Breast pain (Primary Dx); Mass of lower inner quadrant of right breast Start: 02-08-2024 End: 02-08-2024 Bamboo flowsheet Deshawn Rose DO Work Phone: [facility] Start: 02-08-2024 End: 02-08-2024 Clinisync Result Encounter Deshawn Rose DO Work Phone: [facility] External [facility] Unsolicited Start: 02-08-2024 End: 02-08-2024 Clinisync Result Encounter Deshawn Rose DO Work Phone: [facility] Unsolicited Start: 02-08-2024 End: 02-08-2024 Office outpatient visit 15 minutes Deshawn Rose DO Work Phone: [facility] Comment on above: Breast pain; PCOS (polycystic ovarian syndrome); Nipple discharge; Weight gain Start: 02-08-2024 End: 02-08-2024 ambulatory DESHAWN ROSE Not Available Start: 01-16-2024 End: 01-16-2024 ambulatory JOSE NELSON Facility:[facility] Start: 01-16-2024 End: 01-16-2024 Patient encounter procedure Norma Nicholas PA-C Work Phone: [facility] Comment on above: Mass of lower outer quadrant of right breast (Primary Dx) Start: 12-30-2023 End: 12-30-2023 ambulatory TETE DEE Facility:[facility] Start: 12-30-2023 Encounter for other preprocedural examination [facility] Start: 12-29-2023 End: 12-29-2023 Admission to [facility] Virtual Pre Anesthesia Start: 12-29-2023 End: 12-29-2023 ambulatory [facility] Facility:[facility] Start: 12-29-2023 End: 12-29-2023 Anesthesia consultation [facility] Pre Anesthesia Comment on above: Preop examination (P rimary Dx); History of syncope; Mild intermittent asthma without complication; Obesity, Class I, BMI 30-34.9; Anxiety and depression Start: 12-29-2023 End: 12-29-2023 Preprocedural examination done Pac Virtual [facility] Work Phone: Start: 12-23-2023 Orders Only Tete hawk MD Work Phone: [facility] Comment on above: Mass of right breast , unspecified quadrant (Primary Dx); Pre-op testing Start: 12-23-2023 Patient encounter status Tete Multani MD Work Phone: [facility] Start: 12-22-2023 End: 12-22-2023 ambulatory JONNATHAN PELAYO Facility:[facility] Start: 12-22-2023 End: 12-22-2023 Patient encounter procedure Tete Multani MD Work Phone: [facility] Comment on above: Mass of lower outer quadrant of right breast (Primary Dx); Obesity, Class I, BMI 30-34.9 Start: 11-08-2023 End: 11-08-2023 Patient encounter procedure Tete Multani MD Work Phone: [facility] Comment on above: Mass of lower outer quadrant of right breast (Primary Dx); Abscess of right breast Abscess of right william ast (Primary Dx) Start: 11-08-2023 End: 11-08-2023 ambulatory [facility] Facility:[facility] Start: 11-04-2023 Telephone encounter Reta hernandez APRN.PUBLIC ADDRESS SYSTEM OPERATOR Work Phone: [facility] Start: 11-03-2023 End: 11-03-2023 Emergency department patient visit Shauna Patel DO Work Phone: [facility] Comment on above: Cellulitis of right breast (Primary Dx) Start: 11-02-2023 End: 11-02-2023 Orders Only Katie Saeed RN Work Phone: [facility] Comment on above: Breast abscess (Prim otilia Dx) Breast abscess [N61. 1] Start: 11-02-2023 End: 11-02-2023 Office outpatient visit 15 minutes Narda Faria MD Work Phone: [facility] Comment on above: Mass of right breast , unspecified quadrant (Primary Dx) Start: 10-13-2023 Telephone encounter Donna Gracia RN Work Phone: Mammography Comment on above: Results Start: 10-11-2023 End: 10-11-2023 ambulatory [facility] Facility:[facility] Start: 10-11-2023 End: 10-11-2023 Subsequent hospital visit by physician Procedure Mammo Main Mammography Comment on above: Breast disorder [N64 .9] Start: 09-13-2023 End: 09-13-2023 ambulatory Yolanda Angela MD Work Phone: Mammography Comment on above: Breast Problem Start: 09-13-2023 Patient encounter procedure Yolanda Angela MD Work Phone: [facility] Start: 09-13-2023 End: 09-13-2023 Office outpatient visit 25 minutes Narda Faria MD Work Phone: [facility] Comment on above: Mass of right breast , unspecified quadrant (Primary Dx) Start: 09-13-2023 End: 09-13-2023 Subsequent hospital visit by physician Diagnostic Mammo Main Mammography Comment on above: 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, 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] Start: 06-14-2023 End: 06-14-2023 ambulatory JONNATHAN PELAYO Facility:[facility] Start: 06-14-2023 ambulatory JONNATHAN PELAYO Facility :[facility] Start: 05-17-2023 Orders Only Katie grande RN Work Phone: [facility] Comment on above: Mass of lower outer quadrant of right breast (Primary Dx) Start: 05-11-2023 Orders Only Katie grande RN Work Phone: [facility] Start: 05-10-2023 Orders Only Katie grande RN Work Phone: [facility] Comment on above: Mass of right breast , unspecified quadrant (Primary Dx) Start: 02-09-2023 End: 02-09-2023 ambulatory Deshawn Rose Facility:[facility] Start: 02-09-2023 End: 02-09-2023 ambulatory Deshawn Rose Work Phone: [facility] Work Phone: Start: 02-09-2023 End: 02-09-2023 Departed Referred Deshawn Rose Work Phone: [facility] [place] Work Phone: Start: 09-27-2022 End: 09-28-2022 ambulatory [...] Start: 02-06-2020 Patient encounter procedure Avirup Cuco IX-Wyzxqwkkej-Ubiqhkz [address] [place] Work Phone: Start: 01-29-2020 Patient encounter procedure Avirup Cuco GG-Cuzzgmfayf-Xmlgqzk [address] Work Phone: Start: 01-21-2020 Patient encounter procedure Avirup Cuco ZY-Dwzhpohiyl-Fkyicha [address] [place] Work Phone: Start: 01-18-2020 Patient encounter procedure Avirup Cuco YY-Llacjbopke-Kkftooe [address] [place] Work Phone: Start: 05-09-2018 End: 05-10-2018 Patient encounter procedure Jolynn Villa [place] Start: 05-03-2018 End: 05-03-2018 Emergency department patient visit Digna Paco Oro Facility[facility] Start: 03-10-2018 End: 03-10-2018 Emergency department patient visit Cookie Timoteo Facility[place] Start: 03-08-2018 End: 03-08-2018 Emergency department patient visit Ashleypollo Hernandez Madhavi Facility[facility] Start: 08-01-2017 End: 08-01-2017 Emergency department patient visit [facility] Kathrine [facility] Start: 06-24-2017 End: 06-25-2017 [facility] Start: 06-24-2017 End: 06-24-2017 [facility] Start: 06-21-2017 End: 06-21-2017 Emergency department patient visit JONNATHAN PELAYO [facility] Procedures Date Procedure Procedure Detail Performing Clinician Start: 07-12-2024 Urnls dip stick/tabl et rgnt non-auto w/o micrscp Deshawn Rose DO Work Phone: Start: 06-14-2024 End: 06-14-2024 Urnls dip stick/tablet rgnt non-auto w/o micrscp Deshawn Rose DO Work Phone: Start: 05-18-2024 Us breast uni real t john with image limited Tete Multani MD Work Phone: Start: 02-08-2024 ALL CBC WITH AUTO DIFF Deshawn Rose DO Work Phone: Start: 11-03-2023 EXTRA TUBES Shauna W Swi [...] limited Narda Faria MD Work Phone: Start: 05-02-2023 Cytp cerv/vag auto t hin layer prep mnl screen [facility] Nurse Start: 02-13-2020 Follow-up visit Start: 01-29-2020 Echocardiography [...] TRIP PE Extraction of wisdom tooth A faheem Cuco Plan of Treatment Date Care Activity Detail Author Start: 2049 Zoster Vaccines (1 o f 2) Zoster Vaccines (1 of 2) [facility] Start: 08-02-2027 DTaP/Tdap/Td Vaccine s (8 - Td or Tdap) DTaP/Tdap/Td Vaccines (8 - Td or Tdap) [facility] Start: 08-02-2027 Urine microalbumin profile DTaP,Tdap,Td Vaccine (8 - Td or Tdap) [facility] Start: 08-14-2024 End: 08-14-2024 Patient encounter procedure 08/14/2024 1:50 PM EDT Routine [facility] [address] [facility] [id number] Deshawn Rose, DO [address] [place] [address] [facility] Start: 07-12-2024 End: 07-12-2024 Patient encounter procedure 07/12/2024 11:10 AM EST Routine [facility] [address] [place] [id number] Deshawn Rose, DO [address] [place] [address] [facility] Start: 07-10-2024 End: 07-10-2024 Patient encounter procedure 07/10/2024 1:40 PM EST Office Visit [address] [address] Tete Multani MD [address] [place] [address] 2 month follow up/staff [facility] Comment on above: 2 month follow up/st aff ms Start: 06-14-2024 End: 06-14-2025 ABO/Rh ABO/Rh Lab Routine Missed menses , unspecified gestational age Expected: 06/14/2024 (Approximate), Expires: 06/14/2025 [facility] Comment on above: Expected: 06/14/2024 (Approximate), Expires: 06/14/2025 Start: 06-14-2024 End: 06-14-2025 Blood type and Indirect antibody screen panel - Blood Type and screen Lab Routine Missed menses , unspecified gestational age Expected: 06/14/2024 (Approximate), Expires: 06/14/2025 [facility] Work Phone: Comment on above: Expected: 06/14/2024 (Approximate), Expires: 06/14/2025 Start: 06-14-2024 End: 06-14-2025 Drugs of abuse panel - Urine by Screen method Rapid drug screen, urine Lab Routine , unspecified gestational age Encounter for supervision of normal first in first trimester Expected: 06/14/2024 (Approximate), Expires: 06/14/2025 [facility] Comment on above: Expected: 06/14/2024 (Approximate), Expires: 06/14/2025 Start: 05-18-2024 End: 05-18-2024 Patient encounter procedure Mammography Comment on above: Pt is seeing Dr. Humberto perry in ORTHOTIST [facility] PROSTHETIST clinic please direct patient to 8th floor once imaging completed. 8:00am Imaging in A1 0 Start: 04-20-2024 End: 04-20-2024 Patient encounter procedure 04/20/2024 11:30 AM EST Office Visit [facility] [address] [address] Norma Nicholas PA-C [address] [place], [place] [id number] post op- 3 mth follow up- Breast Center Comment on above: post op- 3 mth follo w up- Start: 02-08-2024 End: 02-07-2025 DHEA DHEA Lab Routine PCOS (polycystic ovarian syndrome) Expected: 02/08/2024 (Approximate), Expires: 02/07/2025 [facility] Comment on above: Expected: 02/08/2024 (Approximate), Expires: 02/07/2025 Start: 02-08-2024 End: 02-08-2024 Patient encounter procedure 02/08/2024 2:00 PM EDT Office Visit [facility] [address] [place] [address] Deshawn Rose DO [address] [facility] [place] [address] Arrived [facility] Comment on above: Arrived Start: 01-29-2024 Covid-19 Vaccine ( season) Covid-19 Vaccine ( season) [facility] Start: 01-29-2024 Covid-19 Vaccine ( season) Covid-19 Vaccine ( season) [facility] Start: 01-29-2024 Influenza vaccination [facility] Start: 01-16-2024 End: 01-16-2024 Patient encounter procedure 01/16/2024 9:30 AM EDT Office Visit Breast Center [address] [address] Norma Nicholas PA-C [address] [place], [place] [phone] post op Breast Center Comment on above: post op Start: 01-09-2024 End: 01-09-2024 Admission to same day surgery center 01/09/2024 2:05 PM EDT - 01/09/2024 3:35 PM EDT Surgery Ambulatory Surgery [address] [place] [address] Tete Multani MD [address] [place] [address] RIGHT PALPATION EXCISIONAL BIOPSY Ambulatory Surgery Comment on above: RIGHT PALPATION EXCI SIONAL BIOPSY Start: 01-09-2024 End: 01-09-2024 Exc cyst/aberrant breast tissue open 1/> lesion OPEN EXCISION OF BREAST CYST UNILATERAL FEMALE BREAST Mass of right breast, unspecified quadrant 01/09/2024 2:05 PM EDT ERIN ALESSANDRO Start: 01-09-2024 Subsequent hospital visit by physician 01/09/2024 2:05 PM EDT Hospital Encounter Ambulatory Surgery [address] [address] [place] [address] Tete Mlutani MD [address], [place] [id number] Mass of right breast, unspecified quadrant [N63.10] Ambulatory Surgery Comment on above: Mass of right breast , unspecified quadrant [N63.10] Start: 12-30-2023 End: 12-30-2023 ambulatory 12/30/2023 11:30 AM EDT Results Only [facility] [address] [place] [address] pre op labs [facility] Comment on above: pre op labs Start: 12-23-2023 End: 03-23-2024 CBC W Auto Differential panel - Blood COMPLETE BLOOD COUNT AND DIFFERENTIAL Lab Routine Pre-op testing Expected: 12/23/2023 (Approximate), Expires: 03/23/2024 [facility] Comment on above: Expected: 12/23/2023 (Approximate), Expires: 03/23/2024 Start: 12-23-2023 End: 03-23-2024 Comprehensive metabolic 2000 panel - Serum or Plasma COMPREHENSIVE METABOLIC PANEL Lab Routine Pre-op testing Expected: 12/23/2023 (Approximate), Expires: 03/23/2024 [facility] Work Phone: Comment on above: Expected: 12/23/2023 (Approximate), Expires: 03/23/2024 Start: 11-08-2023 End: 11-08-2023 Patient encounter procedure 11/08/2023 1:20 PM EDT Office Visit [facility] [address] [address] Tete Multani MD [address] [place] [address] NEW SURGICAL [facility] Comment on above: NEW SURGICAL Start: 11-04-2023 End: 11-04-2023 Patient encounter procedure 11/04/2023 8:15 AM EDT Office Visit [facility] [address] [place] [address] Narda Faria MD [address] [place] [address] INCISION CHECK [facility] Comment on above: INCISION CHECK Start: 06-14-2023 End: 06-15-2024 US BREAST LTD RIGHT US BREAST LTD RIGHT Radiology Routine Mass of lower outer quadrant of right breast Expected: 06/14/2023, Expires: 06/15/2024 [facility] Work Phone: Comment on above: Expected: 06/14/2023 , Expires: 06/15/2024 Start: 05-30-2023 Behavioral Health Screening Behavioral Health Screening [facility] Start: 01-28-2023 Covid-19 Vaccine ( season) Covid-19 Vaccine ( season) [facility] Start: 01-28-2023 Influenza vaccination Influenza Vacc ine (#1) [facility] Start: 05-30-2022 Depression Assessment Depression Ass essment [facility] Start: 2020 Screening for malignant neoplasm of cervix [facility] Start: [facility]2020 [facility] Start: 2018 Urine microalbumin profile DTaP,Tdap,Td Vaccine (1 - Tdap) [facility] Start: 2017 Annual PCP Team Chronic Disease Visit Annual PCP Team Chronic Disease Visit [facility] Start: 2017 Depression Screening Depression Scre ening [facility] Start: 2017 Hepatitis C screening Hepatitis C Sc yevgeniy [facility] Start: 2017 HIV screening HIV Screening [facility] Start: 2017 Spirometry Spirometry [facility] Start: 2015 Meningococcal B Vaccine: Consider Based On Risk (1 of 2 - Patient Seeks Protection) Meningococcal B Vaccine: Consider Based On Risk (1 of 2 - Patient Seeks Protection) [facility] Start: 2014 HPV Vaccine (1 - 3-dose series) HPV Vaccine (1 - 3-dose series) [facility] Start: 2014 HPV Vaccines (1 - 3-dose series) HPV Vaccines (1 - 3-dose series) [facility] Start: 2013 Peds To Adult Transition Annual Assessment Peds To Adult Transition Annual Assessment [facility] Start: 2011 Peds To Adult Transition Initial Discussion Peds To Adult Transition Initial Discussion [facility] Start: 2008 HPV Vaccine (1 - 2-dose series) HPV Vaccine (1 - 2-dose series) [facility] Start: 2005 Pneumococcal vaccination Pneumococcal Vaccine (1 of 2 - PCV) [facility] Start: 2005 Pneumococcal Vaccine : Pediatrics (0 to 5 Years) and At-Risk Patients (6 to 64 Years) (1 of 2 - PCV) Pneumococcal Vaccine: Pediatrics (0 to 5 Years) and At-Risk Patients (6 to 64 Years) (1 of 2 - PCV) [facility] Start: 1999 Covid-19 Vaccine (#1) Covid-19 Vacci ne (#1) [facility] Start: 1999 Hepatitis B Vaccine (1 of 3 - 3-dose series) Hepatitis B Vaccine (1 of 3 - 3-dose series) [facility] Start: 1999 HIV screening HIV Screening [facility] Start: 1999 Lipid panel Lipid Panel [facility] Start: 1999 Yearly Adult Physical Yearly Adult P hysical [facility] Aerobic culture Aerobic culture Microbiology Routine Nipple discharge Ordered: 02/08/2024 [facility] Comment on above: Ordered: 02/08/2024 Anaerobic culture Anaerobic cult ure Microbiology Routine Nipple discharge Ordered: 02/08/2024 [facility] Work Phone: Comment on above: Ordered: 02/08/2024 End: 11-03-2023 Bacteria identified in Blood by Culture [facility] Service Area Work Phone: Comment on above: STAT (Lab) for 1 Occ urrences starting 11/03/2023 until 11/03/2023 End: 11-03-2023 Bacteria identified in Unspecified specimen by Culture Tissue/Wound Culture/Smear Microbiology STAT Once (Lab) for 1 Occurrences starting 11/03/2023 until 11/03/2023 [facility] Work Phone: Comment on above: Once (Lab) for 1 Occ urrences starting 11/03/2023 until 11/03/2023 Bacteria identified in Urine by Culture Urine culture Microbiology Routine Missed menses Ordered: 06/14/2024 [facility] Comment on above: Ordered: 06/14/2024 Bacteria identified in Wound by Culture ABSCESS AND WOUND CULTURE WITH GRAM STAIN Microbiology Routine Breast abscess 11/02/2023 1:19 PM EDT [facility] Work Phone: CBC W Auto Differential panel - Blood CBC and differential Lab Routine PCOS (polycystic ovarian syndrome) Ordered: 02/08/2024 [facility] Comment on above: Ordered: 02/08/2024 CBC W Auto Differential panel - Blood CBC and differential Lab Routine Missed menses , unspecified gestational age Ordered: 06/14/2024 [facility] Comment on above: Ordered: 06/14/2024 DHEA-sulfate DHEA-sulfate Lab Routine PCOS (polycystic ovarian syndrome) Ordered: 02/08/2024 [facility] Comment on above: Ordered: 02/08/2024 Exc cyst/aberrant breast tissue open 1/> lesion EXCIS BREAST LESION Procedures Routine Mass of right breast, unspecified quadrant Ordered: 12/23/2023 [facility] Comment on above: Ordered: 12/23/2023 Follicle stimulating hormone Follicle stimulating hormone Lab Routine PCOS (polycystic ovarian syndrome) Ordered: 02/08/2024 [facility] Comment on above: Ordered: 02/08/2024 hCG, quantitative, hCG, quantitative, Lab Routine PCOS (polycystic ovarian syndrome) Ordered: 02/08/2024 [facility] Comment on above: Ordered: 02/08/2024 Hemoglobin A1c/Hemoglobin.total in Blood Hemoglobin A1c Lab Routine Weight gain Ordered: 02/08/2024 [facility] Comment on above: Ordered: 02/08/2024 Hemoglobin A1c/Hemoglobin.total in Blood Hemoglobin A1c Lab Routine Missed menses , unspecified gestational age Ordered: 06/14/2024 [facility] Comment on above: Ordered: 06/14/2024 Hepatitis B virus surface Ag [Presence] in Serum or Plasma by Immunoassay Hepatitis B surface antigen Lab Routine Missed menses , unspecified gestational age Ordered: 06/14/2024 [facility] Comment on above: Ordered: 06/14/2024 Hepatitis C virus Ab [Presence] in Serum or Plasma by Immunoassay Hepatitis C antibody Lab Routine Missed menses , unspecified gestational age Ordered: 06/14/2024 [facility] Comment on above: Ordered: 06/14/2024 HIV-1/HIV-2 antigen/antibody combination immunoassay HIV-1 and HIV-2 antibodies Lab Routine Missed menses , unspecified gestational age Ordered: 06/14/2024 [facility] Comment on above: Ordered: 06/14/2024 Luteinizing hormone Luteinizing hormone Lab Routine PCOS (polycystic ovarian syndrome) Ordered: 02/08/2024 [facility] Comment on above: Ordered: 02/08/2024 Reagin Ab [Presence] in Serum by RPR RPR Lab Routine Missed menses , unspecified gestational age Ordered: 06/14/2024 [facility] Comment on above: Ordered: 06/14/2024 Rubella antibody, IgG Rubella an tibody, IgG Lab Routine Missed menses , unspecified gestational age Ordered: 06/14/2024 [facility] Comment on above: Ordered: 06/14/2024 SURGICAL PATHOLOGY [facility] Work Phone: Comment on above: Release Upon Orderin g for 1 Occurrences starting 10/11/2023, 1 completed Thyrotropin [Units/volume] in Serum or Plasma TSH Lab Routine PCOS (polycystic ovarian syndrome) Ordered: 02/08/2024 [facility] Comment on above: Ordered: 02/08/2024 Thyroxine (T4) free [Mass/volume] in Serum or Plasma T4, free Lab Routine PCOS (polycystic ovarian syndrome) Ordered: 02/08/2024 [facility] Comment on above: Ordered: 02/08/2024 End: 12-07-2024 US Breast - right limited US BREAST LTD RIGHT Radiology Routine Abscess of right breast 1 Occurrences starting 11/08/2023 until 12/07/2024 [facility] Work Phone: Comment on above: 1 Occurrences starti ng 11/08/2023 until 12/07/2024 End: 06-10-2025 US Breast - right limited US BREAST LTD RIGHT Radiology Routine Breast pain 1 Occurrences starting 05/11/2024 until 06/10/2025 [facility] Work Phone: Comment on above: 1 Occurrences starti ng 05/11/2024 until 06/10/2025 End: 06-08-2024 US BREAST LTD RIGHT US BREAST LTD RIGHT Radiology Routine Mass of right breast, unspecified quadrant 1 Occurrences starting 05/10/2023 until 06/08/2024 [facility] Work Phone: Comment on above: 1 Occurrences starti ng 05/10/2023 until 06/08/2024 End: 10-12-2024 US Guidance for biopsy of Breast - right US BIOPSY BREAST RIGHT Radiology Routine Breast disorder 1 Occurrences starting 09/13/2023 until 10/12/2024 [facility] Work Phone: Comment on above: 1 Occurrences starti ng 09/13/2023 until 10/12/2024 [facility] [employer] Work Phone: [facility] NEGATED: Highlighted row has been ruled out! Planned Goals not documented [facility] Work Phone: Immunizations Immunization Date Immunization Notes Care Provider Tyson mccain 04-03-2019 influenza, injectabl e, quadrivalent, preservative free Katie Saeed RN Work Phone: [facility] Work Phone: 04-03-2019 influenza virus vacc ine, unspecified formulation Katie Saeed RN Work Phone: [facility] 08-01-2017 tetanus toxoid, redu lissa diphtheria toxoid, and acellular pertussis vaccine, adsorbed Katie Saeed RN Work Phone: [facility] Work Phone: 01-25-2012 meningococcal oligosaccharide (groups A, C, Y and W-135) diphtheria toxoid conjugate vaccine (MCV4O) Katie Saeed RN Work Phone: [facility] Work Phone: 01-25-2012 meningococcal polysaccharide (groups A, C, Y and W-135) diphtheria toxoid conjugate vaccine (MCV4P) Katie Saeed RN Work Phone: [facility] Work Phone: 01-25-2012 tetanus toxoid, redu lissa diphtheria toxoid, and acellular pertussis vaccine, adsorbed Katie Saeed RN Work Phone: [facility] Work Phone: 01-25-2012 varicella virus vaccine Lilli Saeed RN Work Phone: [facility] Work Phone: 01-20-2005 diphtheria, tetanus toxoids and acellular pertussis vaccine Katie Saeed RN Work Phone: [facility] Work Phone: 01-20-2005 measles, mumps and rubella virus vaccine Katie Saeed RN Work Phone: [facility] Work Phone: 01-20-2005 poliovirus vaccine, inactivated Katie Saeed RN Work Phone: [facility] Work Phone: 03-01-2001 pneumococcal conjuga te vaccine, 7 valent Katie Saeed RN Work Phone: [facility] Work Phone: 08-24-2000 diphtheria, tetanus toxoids and acellular pertussis vaccine Katie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 Comment: Currently breast feeding Child Life Specialist History LMP: 08/26/2023 (Approximate), Having periods Age at Menarche: 11 Age at First : 11 Age at Menopause: Child Life Specialist History Comments: Sexual Activity: Not Asked; No [...] Swelling Beeswax Other: See Comments CURRENT MEDICATIONS: Qhtysoyh-Hr-Yuf-Fe-FA tab Take 1 tablet by mouth once [...] . Physical Exam Exam conducted with a cut in station operator present. Constitutional: General: She is not in [...] Gram Stain No organisms seen Resulting Agency [facility] Susceptibility Organism Antibiotic Method Susceptibility Serratia [...] Specimen Collected: 11/03/23 9:07 PM Performed by: [facility] Last Resulted: 11/06/23 2:34 PM Received From: [facility] Result Received: 11/07/23 10:41 AM No [...] FACOG Breast Surgical Oncology & Benign Gynecology [address] [place] [id number] Appointment cc: Narda Faria [address] [place] [address] Jonnathan Pelayo I spent a total of 55 minutes on the date of the service which included preparing to see the patient, [id number] patient care, completing clinical documentation, obtaining and/or reviewing separately obtained history, performing a medically appropriate examination, and counseling and educating the patient/family/caregiver. documented in this encounter [facility] 11-04-2023 Telephone encounter Note I called [...] worsens over the weekend. Pt stated understanding. [facility] 11-04-2023 Miscellaneous Notes I called and [...] some pain 5. documented in this encounter [facility] 11-04-2023 Telephone encounter Note Pt would like to speak to Reta she stated she was in the hospital last night and was not able attend her appointment this morning she has questions and concerns please, pt is experiencing some pain 5. [facility] 11-03-2023 Emergency department Note HPI Chief [...] a cyst per patient. Patient had a Harmans drain placed which has since fallen out. [...] stable upon discharge. History provided by: Patient [place] Coma Scale Score: 15 Patient History No past medical history on file. Past Surgical History: Procedure Laterality Date OTHER SURGICAL HISTORY 06/29/2019 No history of surgery OTHER SURGICAL HISTORY 01/18/2020 [place] tooth extraction No family history on file. [...] Patel DO 11/03/232217 documented in this encounter [facility] Work Phone: 11-03-2023 Physician Emergency department [...] history of surgery OTHER SURGICAL HISTORY 01/18/2020 [place] tooth extraction No family history on file. [...] Patel DO 11/03/232132 Shauna Patel DO 11/03/232217 [facility] Work Phone: 11-02-2023 History of Present illness Narrative [facility] Department of Breast Surgical Oncology [facility] BREAST FOLLOW-UP SERVICE DATE: 11/02/2023 POST BIOPSY VISIT SUBJECTIVE: Yael Galvan Angeli, 23 year old female presents today for [...] 10/14/2023 4:30 PM - Radiology, [facility] RESULT: FINAL REPORT #[id number] - [facility] US BIOPSY BREAST RT ULTRASOUND GUIDED BIOPSY [...] Vegas performed the entire procedure without an assignment desk assistant. Correlation is made to exams dated: 09/13/2023 [...] Deena sanford/mckinley:10/14/2023 16:29:31 PATHOLOGY REPORT: SURGICAL PATHOLOGY: [id number] Collected 10/11/2023 2:56 PM Component FINAL DIAGNOSIS [...] Patient tolerated well the procedure ASSESSMENT: Yael Mandy Ayers, 23 year old female, right abscess [...] which included preparing to see the patient, [id number] patient care, completing clinical documentation, obtaining and/or reviewing separately obtained history, performing a medically appropriate examination, counseling and educating the patient/family/caregiver, ordering medications, tests, or procedures, communicating with other HCPs (not separately reported), independently interpreting results (not separately reported), communicating results to the patient/family/caregiver, and care coordination (not separately reported). Narda Faria MD documented in this encounter [facility] 11-02-2023 Note HNO ID: [id number] Author: NARDA FARIA MD Service: ? Author Type: Physician Type: Progress Notes Filed: 11/02/2023 13:02 Note Text: [facility] Department of Breast Surgical Oncology [facility] BREAST FOLLOW-UP SERVICE DATE: 11/02/2023 POST [...] 10/14/2023 4:30 PM - Radiology, [facility] RESULT: FINAL REPORT #[id number] - [facility] US BIOPSY BREAST RT ULTRASOUND GUIDED BIOPSY [...] Vegas performed the entire procedure without an assignment desk assistant. Correlation is made to exams dated: 09/13/2023 [...] Deena sanford/mckinley:10/14/2023 16:29:31 PATHOLOGY REPORT: SURGICAL PATHOLOGY: [id number] Collected 10/11/2023 2:56 PM Component FINAL DIAGNOSIS [...] consisting in p (more content not included)... [facility] 10-13-2023 Telephone encounter Note Called patient to notify the breast pathology results are benign per Dr. Vegas. Informed patient a 6 month follow up is recommended. Patient verbalized understanding. [facility] Work Phone: 10-13-2023 Miscellaneous Notes Called patient to notify the breast pathology results are benign per Dr. Vegas. Informed patient a 6 month follow up is recommended. Patient verbalized understanding. documented in this encounter [facility] 10-11-2023 Instructions Formatting of th is [...] SUPPLEMENTAL MATERIAL: Homegoing instructions REFERRAL (RECOMMENDATION): None [facility] 10-11-2023 Miscellaneous Notes AMBULATORY PATIENT EDUCATION [...] REFERRAL (RECOMMENDATION): None documented in this encounter [facility] 09-13-2023 Note HNO ID: [id number] Author: NARDA FARIA MD Service: ? Author Type: Physician Type: Progress Notes Filed: 09/13/2023 17:28 Note Text: [facility] Department of Breast Surgical Oncology [facility] BREAST FOLLOW-UP SERVICE DATE: 09/13/2023 SUBJECTIVE: [...] which included preparing to see the patient, [id number] patient care, completing clinical documentation, obtaining and/or reviewing separately obtained history, performing a medically appropriate examination, counseling and educating the patient/family/caregiver, ordering medications, tests, or procedures, communicating with other HCPs (not separately reported), independently interpreting results (not separately reported), communicating results to the patient/family/caregiver, and care coordination (not separately reported). Narda Faria MD [facility] 09-13-2023 History of Present illness Narrative [facility] Department of Breast Surgical Oncology [facility] BREAST FOLLOW-UP SERVICE DATE: 09/13/2023 SUBJECTIVE: [...] which included preparing to see the patient, [id number] patient care, completing clinical documentation, obtaining and/or reviewing separately obtained history, performing a medically appropriate examination, counseling and educating the patient/family/caregiver, ordering medications, tests, or procedures, communicating with other HCPs (not separately reported), independently interpreting results (not separately reported), communicating results to the patient/family/caregiver, and care coordination (not separately reported). Narda Faria MD documented in this encounter [facility] 06-14-2023 Note HNO ID: [id number] Author: NARDA FARIA MD Service: ? Author [...] which included preparing to see the patient, [id number] patient care, completing clinical documentation, obtaining and/or reviewing separately obtained history, performing a medically appropriate examination, counseling and educating the patient/family/caregiver, ordering medications, tests, or procedures, communicating with other HCPs (not separately reported), independently interpreting results (not separately reported), and communicating results to the patient/family/caregiver. Narda Faria MD [facility] Evaluation note No assessment inform ation available [facility] Work Phone: Evaluation note Diagnosis Mass of right breast, unspecified quadrant- Primary [facility] Diagnosis Mass of lower outer quadrant of right breast- Primary documented in this [facility] Diagnosis Breast disorder- Primary Unspecified breast disorder documented in this [facility] Diagnosis Mass of right breast, unspecified quadrant- Primary documented [facility] this [facility] Diagnosis Lactating adenoma of breast [facility] Diagnosis Breast disorder Unspecified breast disorder [facility] Diagnosis Breast abscess- Primary Inflammatory disease of breast Breast abscess Inflammatory disease of breast [facility] Diagnosis Mass of right breast, unspecified quadrant- Primary [facility] Diagnosis Breast abscess- Primary Inflammatory disease of breast [facility] Diagnosis Breast abscess Inflammatory disease of breast documented in this encounter [facility] note* Diagnosis Cellulitis of right breast- Primary documented in this encounter [facility] Work Phone: [facility] Diagnosis Mass of lower outer quadrant of right breast- Primary Abscess of right breast Inflammatory disease of breast documented in this encounter [facility] note* Diagnosis Abscess of right breast- Primary Inflammatory disease of breast documented in this encounter [facility] note* Diagnosis Mass of lower outer quadrant of right breast- Primary Obesity, Class I, BMI 30-34.9 Obesity, unspecified documented in this encounter [facility] note* Diagnosis Mass of right breast, unspecified quadrant- Primary Pre-op testing Preoperative examination, unspecified Mass of right breast, unspecified quadrant documented in this encounter [facility] note* Diagnosis Preop examination- Primary Preoperative examination, unspecified History of syncope Other specified personal history presenting hazards to health Mild intermittent asthma without complication Unspecified asthma Obesity, Class I, BMI 30-34.9 Obesity, unspecified Anxiety and depression Dysthymic disorder Mass of right breast, unspecified quadrant [facility] Diagnosis Mass of lower outer quadrant of right breast- Primary [facility]* Diagnosis Breast pain- Primary Mastodynia Mass of lower inner quadrant of right breast [facility] Diagnosis Breast pain- Primary Mastodynia [facility]* Diagnosis Breast pain Mastodynia PCOS (polycystic ovarian syndrome) Polycystic ovaries Nipple discharge Other sign and symptom in breast Weight gain Other symptoms concerning nutrition, metabolism, and development [facility] Diagnosis Breast pain- Primary Mastodynia [facility] Diagnosis [facility] pain M[facility]odynia [facility] Diagnosis Missed menses , unspecified gestational age Encounter for supervision of normal first in first trimester documented in this encounter [facility]* Diagnosis First trimester state, incidental 11 weeks gestation of [facility] Attachments The following attachments cannot be sent through Care Everywhere. * Mastitis ([place]) [facility] Phone: Reason for referral (narrative)* Diagnostic Procedure Only (Routine) - Authorized Specialty Diagnoses / Procedures Referred By Lux t Referred To Contact [facility] Diagnoses Mass of right breast, unspecified quadrant Procedures US BREAST LTD RIGHT US BREAST UNI REAL TIME WITH IMAGE LIMITED Narda Faria MD [address] [place] [address] [facility] [address] [place], [place] [phone] Referral ID Status Reason Start Date Expiration Date Visits Requested Visits Authorized [id number] Authorized Auto-Generat ed Referral 05/29/2023 1 1 [facility] for referral (narrative)* Diagnostic Procedure Only (Routine) - Authorized Specialty Diagnoses / Procedures Referred By Lux bentley Referred To Contact [facility] Diagnoses Mass of lower outer quadrant of right breast Procedures US BREAST LTD RIGHT US BREAST UNI REAL TIME WITH IMAGE LIMITED Narda Faria MD [address] [place] [address] [facility] [address] [place], [place] [phone] Referral ID Status Reason Start Date Expiration Date Visits Requested Visits Authorized [id number] Authorized Auto-Generat ed Referral 06/17/2023 06/15/2024 1 1 [facility] for referral (narrative)* Diagnostic Procedure Only (Routine) - Authorized Specialty Diagnoses / Procedures Referred By Lux t Referred To Contact [facility] Diagnoses Breast disorder Procedures US BIOPSY BREAST RIGHT BX BREAST W/DEVICE 1ST LESION ULTRASOUND GUID Yolanda Angela MD [address] [place] [address] [facility] [address] [place] [phone] Referral ID Status Reason Start Date Expiration Date Visits Requested Visits Authorized [id number] Authorized Auto-Generat ed Referral 09/13/2023 10/12/2024 1 1 [facility] for referral (narrative)* Diagnostic Procedure Only (Routine) - Closed Specialty Diagnoses / Procedures Referred By Contac t Referred To Contact [facility] Diagnoses Lactating adenoma of breast Procedures US BREAST LTD RIGHT US BREAST UNI REAL TIME WITH IMAGE LIMITED Narda Faria MD [address] [place], [place] [phone] [facility] [address] [place] [phone] Referral ID Status Reason Start Date Expiration Date V isits Requested Visits Authorized [id number] Closed Auto-Generate d Referral 09/13/2023 07/13/2024 1 1 [facility] for referral (narrative)* Diagnostic Procedure Only (Routine) - Closed Specialty Diagnoses / Procedures Referred By Contac t Referred To Contact [facility] Diagnoses Breast disorder Procedures US BIOPSY BREAST RIGHT BX BREAST W/DEVICE 1ST LESION ULTRASOUND GUID Yolanda Angela MD [address] [address] [facility] [address] [place] [phone] Referral ID Status Reason Start Date Expiration Date V isits Requested Visits Authorized [id number] Closed Auto-Generate d Referral 09/13/2023 10/12/2024 1 1 [facility] for referral (narrative)* Diagnostic Procedure Only (Routine) - Closed Specialty Diagnoses / Procedures Referred By Contac t Referred To Contact [facility] Diagnoses Breast abscess Procedures US BREAST LTD RIGHT US BREAST UNI REAL TIME WITH IMAGE LIMITED Narda Faria MD [address] [id number] [facility] [address] [place] [address] Referral ID Status Reason Start Date Expiration Date V isits Requested Visits Authorized [id number] Closed Auto-Generate d Referral 11/02/2023 12/01/2024 1 1 [facility] for referral (narrative)* Diagnostic Procedure Only (Routine) - Closed Specialty Diagnoses / Procedures Referred By Contac t Referred To Contact [facility] Diagnoses Breast abscess Procedures US BREAST LTD RIGHT US BREAST UNI REAL TIME WITH IMAGE LIMITED Narda Faria MD [facility] [place] [address] [facility] [address] [place] [phone] Referral ID Status Reason Start Date Expiration Date V isits Requested Visits Authorized [id number] Closed Auto-Generate d Referral 11/02/2023 12/01/2024 1 1 T [facility] for referral (narrative)* Diagnostic Procedure Only (Routine) - Pending Review Specialty Diagnoses / Procedures Referred By Contac t Referred To Contact [facility] Diagnoses Abscess of right breast Procedures US BREAST LTD RIGHT US BREAST UNI REAL TIME WITH IMAGE LIMITED Tete Multani MD [address] [place] [address] [facility] [address] [place] [phone] Referral ID Status Reason Start Date Expiration Date Visits Requested Visits Authorized [id number] Pending Review Auto-Generat ed Referral 11/08/2023 12/07/2024 1 1 T [facility] for referral (narrative)* Diagnostic Procedure Only (Routine) - Authorized Specialty Diagnoses / Procedures Referred By Contac t Referred To Contact [facility] Diagnoses Breast pain Procedures US BREAST LTD RIGHT US BREAST UNI REAL TIME WITH IMAGE LIMITED Tete Multani MD [address] [phone] [facility] [address] [place] [phone] Referral ID Status Reason Start Date Expiration Date Visits Requested Visits Authorized [id number] Authorized Auto-Generat ed Referral 06/10/2025 1 1 [facility] for referral (narrative)* Diagnostic Procedure Only (Routine) - Closed Specialty Diagnoses / Procedures Referred By Contac t Referred To Contact [facility] Diagnoses Breast pain Procedures US BREAST LTD RIGHT US BREAST UNI REAL TIME WITH IMAGE LIMITED Tete Multani MD [address] [place] [address] [facility] [address] [place], [place] [phone] Referral ID Status Reason Start Date Expiration Date V isits Requested Visits Authorized [id number] Closed Auto-Generate d Referral 05/11/2024 06/10/2025 1 1 [facility] for visit Narrative* Diagnostic Procedure Only (Routine) - Closed Specialty Diagnoses / Procedures Referred By Contac t Referred To Contact [facility] Diagnoses Lactating adenoma of breast Procedures US BREAST LTD RIGHT US BREAST UNI REAL TIME WITH IMAGE LIMITED Narda Faria MD [address] [place] [address] [facility] [address] [place] [phone] Referral ID Status Reason Start Date Expiration Date V isits Requested Visits Authorized [id number] Closed Auto-Generate d Referral 09/13/2023 07/13/2024 1 1 [facility] for visit Narrative* Diagnostic Procedure Only (Routine) - Closed Specialty Diagnoses / Procedures Referred By Contac t Referred To Contact [facility] Diagnoses Breast disorder Procedures US BIOPSY BREAST RIGHT BX BREAST W/DEVICE 1ST LESION ULTRASOUND GUID Yolanda Angela MD [address] [place], [place] [phone] [facility] [address] [place] [phone] Referral ID Status Reason Start Date Expiration Date V isits Requested Visits Authorized [id number] Closed Auto-Generate d Referral 09/13/2023 10/12/2024 1 1 [facility] for visit Narrative* Diagnostic Procedure Only (Routine) - Closed Specialty Diagnoses / Procedures Referred By Contac t Referred To Contact [facility] Diagnoses Breast abscess Procedures US BREAST LTD RIGHT US BREAST UNI REAL TIME WITH IMAGE LIMITED Narda Faria MD [address] [place] [address] [facility] [address] [place] [phone] Referral ID Status Reason Start Date Expiration Date V isits Requested Visits Authorized [id number] Closed Auto-Generate d Referral 11/02/2023 12/01/2024 1 1 [facility] for visit Narrative* Diagnostic Procedure Only (Routine) - Closed Specialty Diagnoses / Procedures Referred By Contac t Referred To Contact [facility] Diagnoses Breast pain Procedures US BREAST LTD RIGHT US BREAST UNI REAL TIME WITH IMAGE LIMITED Tete Multani MD [address] [place] [address] [facility] [address] [place] [phone] Referral ID Status Reason Start Date Expiration Date V isits Requested Visits Authorized [id number] Closed Auto-Generate d Referral 05/11/2024 06/10/2025 1 1 [facility] Summary Purpose Family History Grandmother Name Dates [...] and content) DATE CREATED AUTHOR 11/18/2017 Martha garza DATE CREATED AUTHOR AUTHOR'S ORGANIZ ATION 10/07/2018 [place] [facility] DATE CREATED AUTHOR AUTHOR'S ORGANIZ ATION 07/20/2019 [facility] DATE CREATED AUTHOR AUTHOR'S ORGANIZ ATION 02/14/2020 [facility] DATE CREATED AUTHOR AUTHOR'S ORGANIZ ATION 03/21/2020 [facility] DATE CREATED AUTHOR AUTHOR'S ORGANIZ ATION 04/29/2021 [facility] DATE CREATED AUTHOR AUTHOR'S ORGANIZ ATION 10/01/2022 [facility] DATE CREATED AUTHOR AUTHOR'S ORGANIZ ATION 04/17/2023 [facility] DATE CREATED AUTHOR AUTHOR'S ORGANIZ ATION 11/10/2023 [facility] DATE CREATED AUTHOR AUTHOR'S ORGANIZ ATION 01/02/2024 [facility] DATE CREATED AUTHOR AUTHOR'S ORGANIZ ATION 05/21/2024 [facility] DATE CREATED AUTHOR AUTHOR'S ORGANIZ ATION 07/14/2024 [facility] [employer] Care Teams (unrecognized sec tion and content) Team Status: Inactive Member Role Status Dates Deshawn Rose Attending Provider Active Data Clerk Relationship Specialty Start Date End Date Jonnathan Pelayo [address] [place] [address] PCP - General Pediatrics 04/01/14 Deshawn Rose DO [address] [place] [address] [address] [place], [place] [phone] Referring SEWING TRIMMER 05/07/23 Data Clerk Relationship Specialty Start Date End Date Jonnathan Pelayo [address] [place] [phone] PCP - General Pediatrics 04/01/14 Deshawn Rose R, DO [address] [place] [address] Referring SEWING TRIMMER 05/07/23 Data Clerk Relationship Specialty Start Date End Date Jonnathan Pelayo [address] [place] [phone] PCP - General Pediatrics 04/01/14 Deshawn Rose R, DO [address] [facility] [place] [address] Referring SEWING TRIMMER 05/07/23 Data Clerk Relationship Specialty Start Date End Date Jonnathan Pelayo [address] [place] [phone] PCP - General Pediatrics 04/01/14 Deshawn Rose R, DO [address] [place] [address] Referring House Piping Inspector 05/07/23 Data Clerk Relationship Specialty Start Date End Date Jonnathan Pelayo [address] [place] [phone] PCP - General Pediatrics 04/01/14 Deshawn Rose R, DO [address] [facility] [place] [address] Referring House Piping Inspector 05/07/23 Data Clerk Relationship Specialty Start Date End Date Jonnathan Pelayo [address] [place] [address] PCP - General Pediatrics 04/01/14 Deshawn Rose, [facility] [place] [address] Referring House Piping Inspector 05/07/23 Data Clerk Relationship Specialty Start Date End Date Jonnathan Pelayo [address] [place] [address] PCP - General Pediatrics 04/01/14 Deshawn Rose, [facility] [place] [address] Referring House Piping Inspector 05/07/23 Data Clerk Relationship Specialty Start Date End Date Jonnathan Pelayo [address] [place] [address] PCP - General Pediatrics 04/01/14 Deshawn Rose, [address] [place], [place] [address] [address] Referring House Piping Inspector 05/07/23 Data Clerk Relationship Specialty Start Date End Date Jonnathan Pelayo [address] [place] [phone] PCP - General Pediatrics 04/01/14 Deshawn Rose, DO [address] [place] [address] Referring House Piping Inspector 05/07/23 Data Clerk Relationship Specialty Start Date End Date Jonnathan Pelayo [address] [place] [phone] PCP - General Pediatrics 04/01/14 Deshawn Rose DO [address] [facility] [address] Referring House Piping Inspector 05/07/23 Data Clerk Relationship Specialty Start Date End Date Jonnathan Pelayo [address] [place] [phone] PCP - General Pediatrics 04/01/14 Deshawn Rose DO [address] [facility] [place] [address] Referring House Piping Inspector 05/07/23 Data Clerk Relationship Specialty Start Date End Date Generic Provider, No Assigned Pcp, [place] [address] PCP - General Combat Systems Operator Mine Warfare 11/03/23 Data Clerk Relationship Specialty Start Date End Date Jonnathan Pelayo [address] [place] [place] [phone] PCP - General Pediatrics 04/01/14 Deshawn Rose DO [address] [facility] [address] Referring House Piping Inspector 05/07/23 Data Clerk Relationship Specialty Start Date End Date Jonnathan Pelayo [address] [place] [phone] PCP - General Pediatrics 04/01/14 Deshawn Rose DO [address] [facility] [address] Referring House Piping Inspector 05/07/23 Data Clerk Relationship Specialty Start Date End Date Jonnathan Pelayo [facility] [place] [address] PCP - General Pediatrics 04/01/14 Deshawn Rose R, DO [address] [facility] [address] Referring House Piping Inspector 05/07/23 Data Clerk Relationship Specialty Start Date End Date Deshawn Rose, DO [address] [facility] [place] [address] Referring House Piping Inspector 05/07/23 Data Clerk Relationship Specialty Start Date End Date Deshawn Rose R, DO [address] [place] [address] Referring House Piping Inspector 05/07/23 Data Clerk Relationship Specialty Start Date End Date Deshawn Rose, DO [address] [place], [place] [address] [address] Referring House Piping Inspector 05/07/23 Data Clerk Relationship Specialty Start Date End Date Deshawn Rose R, DO [address] [place], [place] [address] [address] Referring House Piping Inspector 05/07/23 Data Clerk Relationship Specialty Start Date End Date Deshawn Rose, DO [address] [place] [address] Referring House Piping Inspector 12/9/23 Goals (unrecognized section and content) Goals may be documented in a n alternate section Source Comments (unrecognize d section and content) In the event this informatio n is protected by the Federal Confidentiality of Alcohol and Drug Abuse Patient Records regulations: The Federal rules restrict any use of the information to criminally investigate or prosecute any alcohol or drug abuse patient.[facility] the event this information is protected by the Federal Confidentiality of Alcohol and Drug Abuse Patient Records regulations: The Federal rules restrict any use of the information to criminally investigate or prosecute any alcohol or drug abuse patient.[facility] the event this information is protected by the Federal Confidentiality of Alcohol and Drug Abuse Patient Records regulations: The Federal rules restrict any use of the information to criminally investigate or prosecute any alcohol or drug abuse patient.[facility] the event this information is protected by the Federal Confidentiality of Alcohol and Drug Abuse Patient Records regulations: The Federal rules restrict any use of the information to criminally investigate or prosecute any alcohol or drug abuse patient.[facility] the event this information is protected by the Federal Confidentiality of Alcohol and Drug Abuse Patient Records regulations: The Federal rules restrict any use of the information to criminally investigate or prosecute any alcohol or drug abuse patient.[facility] the event this information is protected by the Federal Confidentiality of Alcohol and Drug Abuse Patient Records regulations: The Federal rules restrict any use of the information to criminally investigate or prosecute any alcohol or drug abuse patient.[facility] the event this information is protected by the Federal Confidentiality of Alcohol and Drug Abuse Patient Records regulations: The Federal rules restrict any use of the information to criminally investigate or prosecute any alcohol or drug abuse patient.[facility] the event this information is protected by the Federal Confidentiality of Alcohol and Drug Abuse Patient Records regulations: The Federal rules restrict any use of the information to criminally investigate or prosecute any alcohol or drug abuse patient.[facility] the event this information is protected by the Federal Confidentiality of Alcohol and Drug Abuse Patient Records regulations: The Federal rules restrict any use of the information to criminally investigate or prosecute any alcohol or drug abuse patient.[facility] the event this information is protected by the Federal Confidentiality of Alcohol and Drug Abuse Patient Records regulations: The Federal rules restrict any use of the information to criminally investigate or prosecute any alcohol or drug abuse patient.[facility] the event this information is protected by the Federal Confidentiality of Alcohol and Drug Abuse Patient Records regulations: The Federal rules restrict any use of the information to criminally investigate or prosecute any alcohol or drug abuse patient.[facility] the event this information is protected by the Federal Confidentiality of Alcohol and Drug Abuse Patient Records regulations: The Federal rules restrict any use of the information to criminally investigate or prosecute any alcohol or drug abuse patient.[facility] the event this information is protected by the Federal Confidentiality of Alcohol and Drug Abuse Patient Records regulations: The Federal rules restrict any use of the information to criminally investigate or prosecute any alcohol or drug abuse patient.[facility] the event this information is protected by the Federal Confidentiality of Alcohol and Drug Abuse Patient Records regulations: The Federal rules restrict any use of the information to criminally investigate or prosecute any alcohol or drug abuse patient.[facility] the event this information is protected by the Federal Confidentiality of Alcohol and Drug Abuse Patient Records regulations: The Federal rules restrict any use of the information to criminally investigate or prosecute any alcohol or drug abuse patient.[facility] the event this information is protected by the Federal Confidentiality of Alcohol and Drug Abuse Patient Records regulations: The Federal rules restrict any use of the information to criminally investigate or prosecute any alcohol or drug abuse patient.[facility] the event this information is protected by the Federal Confidentiality of Alcohol and Drug Abuse Patient Records regulations: The Federal rules restrict any use of the information to criminally investigate or prosecute any alcohol or drug abuse patient.[facility] the event this information is protected by the Federal Confidentiality of Alcohol and Drug Abuse Patient Records regulations: The Federal rules restrict any use of the information to criminally investigate or prosecute any alcohol or drug abuse patient.[facility] Hospital[facility] the event this information is protected by the Federal Confidentiality of Alcohol and Drug Abuse Patient Records regulations: The Federal rules restrict any use of the information to criminally investigate or prosecute any alcohol or drug abuse patient.[facility] Hospital[facility] the event this information is protected by the Federal Confidentiality of Alcohol and Drug Abuse Patient Records regulations: The Federal rules restrict any use of the information to criminally investigate or prosecute any alcohol or drug abuse patient.[facility] HospitalIn the event this information is protected by the Federal Confidentiality of Alcohol and Drug Abuse Patient Records regulations: The Federal rules restrict any use of the information to criminally investigate or prosecute any alcohol or drug abuse patient.[facility] the event this information is protected by the Federal Confidentiality of Alcohol and Drug Abuse Patient Records regulations: The Federal rules restrict any use of the information to criminally investigate or prosecute any alcohol or drug abuse patient.[facility] the event this information is protected by the Federal Confidentiality of Alcohol and Drug Abuse Patient Records regulations: The Federal rules restrict any use of the information to criminally investigate or prosecute any alcohol or drug abuse patient.[facility] Reason for Visit (unrecogniz ed section and content) Reason Comments Breast Problem Reason Comments Established Patient Reason Comments Results Reason Comments Breast Problem Pt has an abscess of the right breast she had drained yesterday, states her harjit drain fell out and is having increased pain and drainage Reason Comments Pre-Op Visit Reason Comments Post Op Reason Comments Established Patient Reason Comments Breast Problem Reason Comments Amenorrhea Reason Comments Routine Visit Scheduled Active and Recently Administ ered Medications [...] (Given - Provid er: Cookie Diggs RN) foxomvmuzrlv-nlurnjbeha-ymdpkzfx (Zosyn) IV 3.375 g (COMPLETED) 3.375 g, [...] (New Bag - Prov ider: Cookie Diggs RN)222 (Stopped - Provider: Cookie Diggs RN) PRN [...] BE BASED ON THE PRIMARY CLINICAL RECORDS. [employer] provides no warranty or guarantee of the accuracy or completeness of information in this document.
[2024-08-14 15:51] LABS: Basophils Percent Auto 0.3 % (0.2-2.0); Eosinophils Absolute Auto 0.1 10^3/uL (0.0-0.7); Eosinophils Percent Auto 0.5 % (0.9-7.0); Hematocrit 37.3 % (36.0-48.0); Hemoglobin 12.8 g/dL (12.0-16.0); Immature Granulocytes Abs Auto 0.03 10^3/uL (0.00-0.03); Immature Granulocytes Pct Auto 0.3 % (0.0-0.5); Lymphocytes Absolute Auto 2.4 10^3/uL (1.2-3.8); Lymphocytes Percent Auto 21.1 % (20.5-60.0); Mean Corpuscular HGB Conc 34.3 g/dL (29.9-35.2); Mean Corpuscular Hemoglobin 28.9 pg (26.7-34.0); Mean Corpuscular Volume 84.2 fL (81.0-99.0); Mean Platelet Volume 10.9 fL (9.5-13.5); Monocytes Absolute Auto 0.7 10^3/uL (0.3-0.8); Monocytes Percent Auto 5.8 % (1.7-12.0); Neutrophils Absolute Auto 8.3 10^3/uL (1.4-6.5); Platelet Count 254 10^3/uL (150-450); Red Blood Count 4.43 10^6/uL (4.20-5.40); White Blood Count 11.5 10^3/uL (4.0-11.0)
[2024-08-14 16:04] LABS: Estimated Average Glucose 100 mg/dL; Glycohemoglobin A1C 5.1 % (4.5-6.2)
[2024-08-14 16:14] LABS: Amphetamine Screen Urine NEGATIVE (NEGATIVE); Barbiturates Screen Urine NEGATIVE (NEGATIVE); Benzodiazepines Screen Urine NEGATIVE (NEGATIVE); Buprenorphine Screen Urine NEGATIVE (NEGATIVE); Cannabinoid Screen Urine NEGATIVE (NEGATIVE); Cocaine Screen Urine NEGATIVE (NEGATIVE); Methadone Screen Urine NEGATIVE (NEGATIVE); Methamphetamines Screen Urine NEGATIVE (NEGATIVE); Opiate Screen Urine NEGATIVE (NEGATIVE); Oxycodone Screen Urine NEGATIVE (NEGATIVE); Phencyclidine Screen Urine NEGATIVE (NEGATIVE); Tricyclic Antidepressant Urine NEGATIVE (NEGATIVE)
[2024-08-16 04:08] LABS: Rubella Antibodies, IgG 6.06 index (Immune >0.99)
[2024-08-16 05:07] LABS: HCV Ab Non Reactive (Non Reactive); HIV Ab/p24 Ag Screen Non Reactive (Non Reactive)
[2024-08-16 06:08] LABS: HBsAg Screen Negative (Negative)
[2024-08-16 12:08] LABS: Rapid Plasma Reagin, Quant Non Reactive titer (NonRea<1:1)
[2024-08-17 01:07] LABS: AFP Value 48.6 ng/mL (.); Gest. Age on Collection Date 15.9 weeks (.); Gestat. Age Based On Ultrasound (.); Insulin Dep Diabetes No (.); Maternal Age At EDD 25.8 yr (.); OSBR Risk 1 IN 1373 (.); Results Report (.)
== END 2024-08-14 15:15 | disposition home or self-care (01) ==
LOC: LAB 15:14
PROVIDERS: Visit Provider Obstetrics & Gynecology
DX: Z34.92 Encounter for supervision of normal pregnancy, unspecified, second trimester (principal); N92.6 Irregular menstruation, unspecified
CPT/HCPCS: 36415; 80307; 82105; 83036; 85025; 86592; 86762; 86803; 86850; 86900; 86901; 87086; 87340; 87389; 88175

== ENCOUNTER 2024-08-14 21:29 | Outpatient (REF) | payer BC, SELFPAY ==
--- OUTSIDE RECORDS SUMMARY | 2024-08-14 21:34 | XMS_ITS | CCD ---
Author Organization [facility] Care Team Providers Care Maintenance Superintendent Name Role Phone JONNATHAN PELAYO Unavailable Unavailable CARLIE ARIAS Unavailable Unavailable CLINGMAN, NELA A Unavailable Unavailable CLINGMAN, NELA A Unavailable Unavailable CLINGMAN, NELA A Unavailable Unavailable CLINGMAN, NELA A Unavailable Unavailable CLINGMAN, NELA A Unavailable Unavailable CLINGMAN, NELA A Unavailable Unavailable CLINGMAN, NELA A Unavailable Unavailable JUDD WASHINGTON Unavailable Unavaila ble Hajdari, Astrit H Admitting Unavailable Hajdari, Astrit H Attending Unavailable Carlie [phone] UNKNOWN Primary Ca re Unavailable Timoteo Cookie Admitting Unavailable Timoteo, Cookie Attending Unavailable Carlie [phone] UNKNOWN Primary Ca re Unavailable Oro, Digna [...] [employer] Consulting Unavailable Rose, Deshawn Attending Provider [phone] Deshawn Rose Admitting Unavailable RoseShelbyy Attending Unavailable Trippe, Jonnathan J Primary Care Provider Rose DO, Deshawn R Unavailable Trippe, Jonnathan J Primary Care Provider Generic Provider , No Assigned Pcp Primary [...] Primary Care Unavailable FARIA, NARDA Referring Unavailable TETE MULTANI Attending Unavailabl e TRIPPE, JONNATHAN J [...] beeswax Drug Allergy 9 Other: See Comments [facility] (2 sources) bee venom Drug allergy (disorder) [facility] Repository (20 sources) beeswax; Translations: [BEESWAX] Drug Allergy 9 Other: See Comments, Hives, Swelling [facility] Work Phone: (20 sources) Bees; Translations: [BEES] Allergy to substance 3 Swelling [facility] Work Phone: (20 sources) Venom-Honey Bee; Translations: [VENOM-HONEY BEE] Drug Allergy 3 Swelling [facility] Work Phone: (14 sources) Vancomycin; Translations: [VANCOMYCIN] Drug Allergy 4 Hives, Itching, Shortness of breath [facility] 2 Repository (3 sources) Honey bee venom Allergy to substance 3 Swelling [facility] (3 sources) Silver Propensity to adverse reactions 5 Itching, Other, Rash, Swelling [facility] Medications Current Medications Medication Drug [...] Comment on above: Take 1 tablet by [facility] once daily. diphenhydrAMINE (2 sources) Histamine-1 [...] Tissue, Indications: Cellulitis, Skin and Soft Tissue Mcebubds-Fu-Iqg-Fe -FA tab (16 sources) Start: 05-17-2023 End: 12-29-2023 take 1 tablet by mouth once daily Hknnhhyd-Im-Zms-Fe- FA tab Take 1 tablet by mouth once daily. 0 05/17/2023 12/29/2023 Discontinued (Course of therapy completed) Start: 05-17-2023 take 1 tablet by yasir th once daily Mjsgjlom-Pv-Ifi-Fe-FA tab Take 1 tablet by mouth once daily. 0 05/17/2023 Active Comment on above: Take 1 tablet by yasir th once daily. Lvydarli-Uco-Te-FA ( 1 + IRON PO) (3 sources) End: 02-08-2024 Lnictujc-Brt-Zx-FA ( 1 + IRON PO) 02/08/2024 Discontinued [...] UA Negative Negative - 4(70) +++ mg/dL [facility] Blood, UA Negative Negative - 50 Ruel/mcL [facility] Clarity, UA Clear [facility] Color, UA Yellow [facility] Glucose, UA Negative Negative - 1999(110) ++++ mg/dL [facility] Interpretation and review of laboratory results Normal [facility] Ketones, UA Negative Negative - 160(16) ++++ mg/dL [facility] Leukocytes, UA Negative Negative - 500+++ Coretta/mcL [facility] Nitrite, UA Negative Negative - Positive [facility] pH, UA 6 5 - 9 [facility] Protein, UA Negative Negative - 1999(20) ++++ mg/dL [facility] Spec Grav, UA 1.01 1 - 1.03 [facility] Urobilinogen, UA 0.2 0.2 - 12 mg/dL [facility] HCG ( test) Ql (U)o n 06-14-2024 Interpretation and review of laboratory results Abnormal [facility] Preg Test, Ur Positive Negative [facility] Urinalysis macro (dipstick) panel (U)on 06-14-2024 Bilirubin, UA Negative Negative - 4(70) +++ mg/dL [facility] Blood, UA Negative Negative - 50 Ruel/mcL [facility] Clarity, UA Clear [facility] Color, UA Yellow [facility] Glucose, UA Negative Negative - 1999(110) ++++ mg/dL [facility] Interpretation and review of laboratory results Normal [facility] Ketones, UA Negative Negative - 160(16) ++++ mg/dL [facility] Leukocytes, UA Negative Negative - 500+++ Coretta/mcL [facility] Nitrite, UA Negative Negative - Positive [facility] pH, UA 6.5 5 - 9 [facility] Protein, UA Negative Negative - 1999(20) ++++ mg/dL [facility] Spec Grav, UA 1.015 1 - 1.03 [facility] Urobilinogen, UA 1.0 0.2 - 12 mg/dL [facility] CNOVon 05-18-2024 CNOV Office Visit (GYNMN) YAEL AYERS ([id number]) 2000 F Date Time Provider Department 05/18/24 9:00 AM TETE MULTANI GYNMN During your visit today, we recorded the following information about you: Blood pressure Weight 129/81 87.4 kg Tete Multani MD 05/18/2024 10:03 AM Signed [facility] [place] Department of Breast Surgery [facility] POST OPERATIVE FOLLOW-UP SERVICE DATE: [...] in 3rd trimester. 01/2023 - Delivered baby [place] mass grew in size February 2023 (OSH) Right breast US showing a 2.2 x 1.7 x 0.9 cm mass at 6:00. 04/11/2023 ([facility])- Right breast US-guided CNBx showed findings consistent [...] DATE OF EXAM: May 18 2024 9:00AM [facility] 0594 - [place] US BREAST LTD RT / PROCEDURE REASON: Breast pain * * * * Physician Interpretation * * * * RESULT: [address] [place] [id number] #[id number] - [facility] US BREAST LTD RT HISTORY: Patient is 24 years old and is seen for diagnostic evaluation of diffuse pain in the right breast. COMPARISON STUDIES: The (more content not included)... Normal [facility] US BREAST LTD RTon 05-18 [place] US BREAST LTD RT * * *Final Report* * * DATE OF EXAM: May 18 2024 9:00AM [facility] 0594 - [place] US BREAST LTD RT / PROCEDURE REASON: Breast pain * * * * Physician Interpretation * * * * RESULT: [place] [id number] [facility] DESK [address] [address] #[id number] - [facility] US BREAST LTD RT HISTORY: Patient [...] Abel Moody M.D. Electronically signed on: 05/18/2024 Tube Blower: ARAM Transcribe Date/Time: May 18 2024 9:00A Dictated by : ABEL MOODY MD This examination was interpreted and the report reviewed and electronically signed by: ABEL MOODY MD on May 18 2024 9:17AM EST [id number] Normal [facility] US Breast - right limitedon 05-18-2024 [...] Abel Moody M.D. Electronically signed on: 05/18/2024 Tube Blower: ARAM Transcribe Date/Time: May 18 2024 9:00A Dictated by : ABEL MOODY MD This examination was interpreted and the report reviewed and electronically signed by: ABEL MOODY MD on May 18 2024 9:17AM EST DIVISION OF RADIOLOGY * * *Final Report* * * DATE OF EXAM: May 18 2024 9:00AM [place] 0594 - [facility] BREAST LTD RT / PROCEDURE REASON: Breast pain * * * * Physician Interpretation * * * * RESULT: [place] [address] #[id number] - [facility] BREAST [facility] RT HISTORY: Patient is 24 years old [...] from the nipple. DIVISION OF RADIOLOGY Provider, [facility] - 05/18/2024 * * *Final Report* * * DATE OF EXAM: May 18 2024 9:00AM [facility] 0594 - [facility] [employer] BREAST [employer] RT / PROCEDURE REASON: Breast pain * * * * Physician Interpretation * * * * RESULT: [place] [address] #[id number] - [facility] BREAST [employer] RT HISTORY: Patient is 24 years old [...] Abel Moody M.D. Electronically signed on: 05/18/2024 Tube Blower: ARAM Transcribe Date/Time: May 18 2024 9:00A Dictated by : ABEL MOODY MD This examination was interpreted and the report reviewed and electronically signed by: ABEL MOODY MD on May 18 2024 9:17AM EST [facility] Radiology Study observation (narrative) [facility] US Breast - right limitedOrd ered By: [facility] Provider on 05-18-2024 [facility] CNOVon 05-11-2024 CNOV Office Visit (BRCRMN ) YAEL AYERS ([id number]) 2000 F Date Time Provider Department 05/11/24 3:40 PM TETE MULTANI During your visit today, we recorded the following information about you: Tete Multani MD 05/11/2024 3:50 PM Signed [facility] [place] Department of Breast Surgery [facility] POST OPERATIVE FOLLOW-UP SERVICE DATE: [...] in 3rd trimester. 01/2023 - Delivered baby [place] mass grew in size February 2023 ([facility]) Right breast US showing a 2.2 x 1.7 x 0.9 cm mass at 6:00. 04/11/2023 ([facility])- Right breast US-guided CNBx showed findings consistent [...] concerned abo (more content not included)... Normal [facility] CNOVon 02-10-2024 CNOV Office Visit (BRCRCA ) YAEL AYERS ([id number]) 2000 F Date Time Provider Department 02/10/24 8:00 AM RETA SANFORD During your visit today, we recorded the following information about you: Temperature Pulse Respiration Blood pressure 97.6 degrees 79/minute 18/minute 123/80 Weight 84.3 kg Reta Sanford APRN.CAREER DEVELOPMENT COORDINATOR 02/10/2024 9:02 AM Signed BREAST POST OPERATIVE [...] as generalized breast pain. PATHOLOGY: SURGICAL PATHOLOGY: [id number] Order: [id number] Collected 01/09/2024 1:56 PM Status: Final result [...] No Does patient want to see a Furnace Mechanic Helper? No (yes to any of above refer [...] 6 h (more content not included)... Normal [facility] ALL CBC WITH AUTO DIFFon BASOPHILS ABSOLUTE AUTO 0.1 [facility] Basophils/100 WBC (Bld) 0.5 % 0.2 - 2.0 % [facility] Eosinophils/100 WBC (Bld) 1.2 % 0.9 - 7.0 % [facility] Erythrocyte distribution width (RBC) [Ratio] 13.1 % 11.0 - 15.0 % [facility] Hematocrit (Bld) [Volume fraction] 38.2 % 36.0 - 48.0 % [facility] Hemoglobin (Bld) [Mass/Vol] 12.7 g/dL 12.0 - 16.0 g/dL [facility] IMMATURE GRANULOCYTES ABS AUTO 0.02 [facility] Immature granulocytes/100 WBC (Bld) 0.2 % 0.0 - 0.5 % [facility] LYMPHOCYTES ABSOLUTE AUTO 2.8 [facility] Lymphocytes/100 WBC (Bld) 27.3 % 20.5 - 60.0 % [facility] MCH (RBC) [Entitic mass] 28.2 pg 26.7 - 34.0 pg [facility] MCHC (RBC) [Mass/Vol] 33.2 g/dL 29.9 - 35.2 g/dL [facility] MCV (RBC) [Entitic vol] 84.9 fL 81.0 - 99.0 fL [facility] MONOCYTES ABSOLUTE AUTO 0.8 [facility] Monocytes/100 WBC (Bld) 8.2 % 1.7 - 12.0 % [facility] NEUTROPHILS ABSOLUTE AUTO 6.4 [facility] Neutrophils/100 WBC (Bld) 62.6 % 43.0 - 75.0 % [facility] Platelet mean volume (Bld) [Entitic vol] 10.3 fL 9.5 - 13.5 fL [facility] TBH EO # 0.1 [facility] TBH PLT 264 [facility] RBC 4.50 [facility] WBC 10.2 [facility] CLINISYNC [facility] CNOVon 01-16-2024 CNOV Office Visit (BRCRMN ) YAEL AYERS ([id number]) 2000 F Date Time Provider Department 01/16/24 9:30 AM NORMA NICHOLAS ANGELATN During your visit today, we recorded the [...] Norma Nicholas PA-C Referring Provider: JOSE NELSON [[id number]] Allergies As of Date: 01/16/2024 Noted Allergy [...] conditions, t* (more content not included)... Normal [facility] ANES POSTPROC EVALon 024 ANES POSTPROC EVAL HNO ID: [id number] Author: VASU BARRY MD Service: Anesthesiology Author Type: Anesthesiologist Type: Anesthesia Postprocedure Evaluation Filed: 01/09/2024 16:11 Note Text: POST ANESTHESIA EVALUATION NOTE : 2000 Procedure Summary Date: 01/09/24 Room / Location: [address] Anesthesia Start: 1334 Anesthesia Stop: 1427 [...] January 09, 2024 TIME: 4:11 PM CSN: [id number] Normal [facility] ANES PRE-OPon 01-09-2024 ANES PRE-OP HNO ID: [id number] Author: VASU BARRY MD Service: Anesthesiology Author Type: Anesthesiologist Type: Anesthesia Preprocedure Evaluation Filed: 01/09/2024 13:15 Note Text: ANESTHESIOLOGY DAY OF SURGERY NOTE : 2000 Procedure Information Date/Time: 01/09/24 1350 Procedure: RIGHT PALPATION EXCISIONAL BIOPSY (Right: Breast) Location: [address] Surgeons: Tete Multani MD Estimated body [...] and consent discussed: yes. Patient / Responsible Libertarian agrees to proceed: yes Patient / Surrogate [...] January 09, 2024 TIME: 1:14 PM CSN: [id number] Normal [facility] OPERATIVE NOon 01-09-2024 OPERATIVE NO HNO ID: [id number] Author: TETE MULTANI MD Service: General Surgery Author Type: Physician Type: Operative Report Filed: 01/09/2024 14:19 Note Text: OPERATIVE/PROCEDURE REPORT LOG ID: [id number] SURGERY DATE: 01/09/2024 Incision/Procedure Start Time: 1:51 PM Incision Close/Procedure End Time: 2:17 PM Surgeon(s) and Gun Mechanic(s): Surgeon(s) and Role: * Tete Multani MD - Primary Nurse Practitioner: Reta Sanford APRN.CAREER DEVELOPMENT COORDINATOR SURGERY/PROCEDURES: RIGHT breast palpation guided excisional biopsy [...] assistance. No qualified resident/fellow was available. Physician Gun Mechanic assisted with retraction , under direct supervision and the remainder of the procedure was performed by the primary surgeon/proceduralist with assistance. SIGNATURE: Tete Multani MD PATIENT NAME: Yael Ayers DATE: 01/09/2024 TIME: 2:19 PM PAGER/CONTACT #: [phone] Normal [facility] SURGICAL PATHOLOGYon 024 CASE REPORT Normal [facility] Comment on above: Order Comment: Jacobi elle Type: TISSUE SPECIMENOrdering Facility: [facility] Address: [address] [place] [address] Result Comment: Surg [facility] Pathology Report Case: [id number] Authorizing Provider: Tete Multani MD Collected: 01/09/2024 01:56 PM Ordering Location: Ambulatory Surgery Received: 01/09/2024 03:27 PM Pathologist: Keith Fam MD Specimens: A) - Breast, Right, Excision of Lesion, right breast excisional biopsy, 6 oclock unoriented B) - Breast, Right, Excision of Lesion, right breast excisional biopsy #2, 3 oclock unoriented Performed By: #### S ####[facility] LABCLIA [id number] [place] [address] [place] CLINICAL HISTORY Normal [facility] Comment on above: Order Comment: Speci men Type: TISSUE SPECIMENOrdering Facility: [facility] Address: [address] [place] [address] Result Comment: Pre- op diagnosis: Mass of right breast, unspecified quadrant [N63.10] Performed By: #### S ####[facility] LABCLIA [id number] [place] [address] [place] FINAL DIAGNOSIS Normal [facility] Comment on above: Order Comment: Speci men Type: TISSUE SPECIMENOrdering Facility: [facility] Address: [address] [place] [address] Result Comment: A. B reast, right, at 6:00, #1, excisional biopsy: ---Benign breast parenchyma including prominent nodular adenosis with superimposed secretory/lactational change ( lactating adenoma ). B. Breast, right, at 3:00, #2, excisional biopsy: ---Benign breast parenchyma including adenosis with superimposed secretory/lactational change. Performed By: #### S ####[facility] LABCLIA [id number] [place] [address] [place] FINAL PERFORMING LAB Normal [facility] Comment on above: Order Comment: Speci men Type: TISSUE SPECIMENOrdering Facility: [facility] Address: [address] [place] [address] Result Comment: Diag nostic interpretation performed at [facility], [address] [place] [address] CLIA# [id number] Bobbin Dumper: Chano Casillas M.D. Performed By: #### S ####[facility] LABCLIA [id number] [address] [place] GROSS DESCRIPTION Normal [facility] Comment on above: Order Comment: Speci men Type: TISSUE SPECIMENOrdering Facility: [facility] Address: [address] [place] [address] Result Comment: A. B reast, Right, Excision [...] 2024 9:30 AM [place] [address] Performed By: #### S ####[facility] LABCLIA [id number] [place] [address] [place] CBC W Auto Differential pane l (Bld)on 12-30-2023 Basophils (Bld) [#/Vol] 0.04 10*3/uL Normal <0.11 [facility] Comment on above: Order Comment: Speci men Type: BLOOD SPECIMEN [facility] Address: [address] [place] [address] Performed By: #### 5 7021-8 #### [facility] CLIA [id number] [address] [place] [address] [place] Basophils/100 WBC (Bld) 0.4 % Normal [facility] Comment on above: Order Comment: Speci men Type: BLOOD SPECIMEN [facility] Address: [address] [place] [address] Performed By: #### 5 7021-8 #### [facility] CLIA [id number] [address] [place] [address] [place] Differential cell count method Nom (Bld) Auto Normal [facility] Comment on above: Order Comment: Speci men Type: BLOOD SPECIMEN [facility] Address: [address] [place] [address] Performed By: #### 5 7021-8 #### [facility] CLIA [id number] [address] [place] [address] [place] Eosinophils (Bld) [#/Vol] 0.12 10*3/uL Normal <0.46 [facility] Comment on above: Order Comment: Speci men Type: BLOOD SPECIMEN [facility] Address: [address] [place] [address] Performed By: #### 5 7021-8 #### [facility] CLIA [id number] [address] [place] [address] [place] Eosinophils/100 WBC (Bld) 1.3 % Normal [facility] Comment on above: Order Comment: Speci men Type: BLOOD SPECIMEN [facility] Address: [address] [place] [address] Performed By: #### 5 7021-8 #### [facility] CLIA [id number] [address] [place] [address] [place] Erythrocyte distribution width (RBC) [Ratio] 13.3 % Normal 11.5-15.0 [facility] Comment on above: Order Comment: Speci men Type: BLOOD SPECIMEN [facility] Address: [address] [place] [address] Performed By: #### 5 7021-8 #### [facility] CLIA [id number] [address] [place] [address] [place] Hematocrit (Bld) [Volume fraction] 41.7 % Normal 36.0-46.0 [facility] Comment on above: Order Comment: Speci men Type: BLOOD SPECIMEN [facility] Address: [address] [place] [address] Performed By: #### 5 7021-8 #### [facility] CLIA [id number] [address] [place] [address] [place] Hemoglobin (Bld) [Mass/Vol] 13.3 g/dL Normal 11.5-15.5 [facility] Comment on above: Order Comment: Speci men Type: BLOOD SPECIMEN [facility] Address: [address] [place] [address] Performed By: #### 5 7021-8 #### [facility] CLIA [id number] [address] [place] [address] [place] Immature granulocytes (Bld) [#/Vol] 0.03 10*3/uL Normal <0.10 [facility] Comment on above: Order Comment: Speci men Type: BLOOD SPECIMEN [facility] Address: [address] [place] [address] Performed By: #### 5 7021-8 #### [facility] CLIA [id number] [address] [place] Immature granulocytes/100 WBC (Bld) 0.3 % Normal [facility] Comment on above: Order Comment: Speci men Type: BLOOD SPECIMEN [facility] Address: [address] [place] [address] Performed By: #### 5 7021-8 #### [facility] CLIA [id number] [address] [place] [address] [place] Lymphocytes (Bld) [#/Vol] 2.99 10*3/uL Normal 1.00-4.00 [facility] Comment on above: Order Comment: Speci men Type: BLOOD SPECIMEN [facility] Address: [address] [place] [address] Performed By: #### 5 7021-8 #### [facility] CLIA [id number] [address] [place] [address] [place] Lymphocytes/100 WBC (Bld) 32.9 % Normal [facility] Comment on above: Order Comment: Speci men Type: BLOOD SPECIMEN [facility] Address: [address] [place] [address] Performed By: #### 5 7021-8 #### [facility] CLIA [id number] [address] MCH (RBC) [Entitic mass] 27.6 pg Normal 26.0-34.0 [facility] Comment on above: Order Comment: Speci men Type: BLOOD SPECIMEN [facility] Address: [address] [place] [address] Performed By: #### 5 7021-8 #### [facility] CLIA [id number] [address] MCHC (RBC) [Mass/Vol] 31.9 g/dL Normal 30.5-36.0 [facility] Comment on above: Order Comment: Speci men Type: BLOOD SPECIMEN [facility] Address: [address] [place] [address] Performed By: #### 5 7021-8 #### [facility] CLIA [id number] [address] MCV (RBC) [Entitic vol] 86.5 fL Normal 80.0-100.0 [facility] Comment on above: Order Comment: Speci men Type: BLOOD SPECIMEN [facility] Address: [address] [place] [address] Performed By: #### 5 7021-8 #### [facility] CLIA [id number] [address] Monocytes (Bld) [#/Vol] 0.78 10*3/uL Normal <0.87 [facility] Comment on above: Order Comment: Speci men Type: BLOOD SPECIMEN [facility] Address: [address] [place] [address] Performed By: #### 5 7021-8 #### [facility] CLIA [id number] [address] Monocytes/100 WBC (Bld) 8.6 % Normal [facility] Comment on above: Order Comment: Speci men Type: BLOOD SPECIMEN [facility] Address: [address] [place] [address] Performed By: #### 5 7021-8 #### [facility] CLIA [id number] [address] [place] [address] [place] Neutrophils (Bld) [#/Vol] 5.12 10*3/uL Normal 1.45-7.50 [facility] Comment on above: Order Comment: Speci men Type: BLOOD SPECIMEN [facility] Address: [address] [place] [address] Performed By: #### 5 7021-8 #### [facility] CLIA [id number] [address] Neutrophils/100 WBC (Bld) 56.5 % Normal [facility] Comment on above: Order Comment: Speci men Type: BLOOD SPECIMEN [facility] Address: [address] [place] [address] Performed By: #### 5 7021-8 #### [facility] CLIA [id number] [address] [place] [address] [place] Nucleated RBC (Bld) [#/Vol] 10*3/uL Normal <0.01 [facility] Comment on above: Order Comment: Speci men Type: BLOOD SPECIMEN [facility] Address: [address] [place] [address] Performed By: #### 5 7021-8 #### [facility] CLIA [id number] [address] Nucleated RBC/100 WBC (Bld) [Ratio] 0.0 /100 WBC Normal [facility] Comment on above: Order Comment: Speci men Type: BLOOD SPECIMEN [facility] Address: [address] [place] [address] Performed By: #### 5 7021-8 #### [facility] CLIA [id number] [address] [place] Platelet mean volume (Bld) [Entitic vol] 10.3 fL Normal 9.0-12.7 [facility] Comment on above: Order Comment: Speci men Type: BLOOD SPECIMEN [facility] Address: [address] [place] [address] Performed By: #### 5 7021-8 #### [facility] CLIA [id number] [address] [facility] Platelets (Bld) [#/Vol] 289 10*3/uL Normal 150-400 [facility] Comment on above: Order Comment: Speci men Type: BLOOD SPECIMEN Ordering Facility: [facility] Address: [address] [place] [address] Performed By: #### 5 7021-8 #### [facility] CLIA [id number] [address] [facility] RBC (Bld) [#/Vol] 4.82 10*6/uL Normal 3.90-5.20 [facility] Comment on above: Order Comment: Speci men Type: BLOOD SPECIMEN Ordering Facility: [facility] Address: [address] [place] [address] Performed By: #### 5 7021-8 #### [facility] CLIA [id number] [address] OF [place] WBC (Bld) [#/Vol] 9.08 10*3/uL Normal 3.70-11.00 [facility] Comment on above: Order Comment: Speci men Type: BLOOD SPECIMEN Ordering Facility: [facility] Address: [address] [place] [address] Performed By: #### 5 7021-8 #### [facility] CLIA [id number] [address] Comprehensive metabolic 2000 panelon 12-30-2023 Albumin [Mass/Vol] 4.3 g/dL Normal 3.9-4.9 [facility] Comment on above: Order Comment: Speci men Type: BLOOD SPECIMEN Ordering Facility: [facility] Address: [address] [place] [address] Performed By: #### 2 4323-8 #### [facility] CLIA [id number] [address] [place] [address] [place] ALP [Catalytic activity/Vol] 89 U/L Normal 34-123 [facility] Comment on above: Order Comment: Speci men Type: BLOOD SPECIMEN Ordering Facility: [facility] Address: [address] [place] [address] Performed By: #### 2 4323-8 #### [facility] CLIA [id number] [address] [place] [address] [place] ALT [Catalytic activity/Vol] 12 U/L Normal 7-38 [facility] Comment on above: Order Comment: Speci men Type: BLOOD SPECIMEN Ordering Facility: [facility] Address: [address] [place] [address] Performed By: #### 2 4323-8 #### [facility] CLIA [id number] [address] [place] [address] [place] Anion gap [Moles/Vol] 11 mmol/L Normal 8-15 [facility] Comment on above: Order Comment: Speci men Type: BLOOD SPECIMEN Ordering Facility: [facility] Address: [address] [place] [address] Performed By: #### 2 4323-8 #### [facility] CLIA [id number] [address] [place] [address] [place] AST [Catalytic activity/Vol] 12 U/L Low 13-35 [facility] Comment on above: Order Comment: Speci men Type: BLOOD SPECIMEN Ordering Facility: [facility] Address: [address] [place] [address] Performed By: #### 2 4323-8 #### [facility] CLIA [id number] [address] [place] [address] [place] Bilirubin [Mass/Vol] 0.6 mg/dL Normal 0.2-1.3 [facility] Comment on above: Order Comment: Speci men Type: BLOOD SPECIMEN Ordering Facility: [facility] Address: [address] [place] [address] Performed By: #### 2 4323-8 #### [facility] CLIA [id number] [address] [place] [address] [place] Calcium [Mass/Vol] 9.3 mg/dL Normal 8.5-10.2 [facility] Comment on above: Order Comment: Speci men Type: BLOOD SPECIMEN Ordering Facility: [facility] Address: [address] [place] [address] Performed By: #### 2 4323-8 #### [facility] CLIA [id number] [address] OF [place] Chloride [Moles/Vol] 102 mmol/L Normal 98-107 [facility] Comment on above: Order Comment: Speci men Type: BLOOD SPECIMEN Ordering Facility: [facility] Address: [address] [place] [address] Performed By: #### 2 4323-8 #### [facility] CLIA [id number] [address] [facility] CO2 [Moles/Vol] 23 mmol/L Normal 22-30 [facility] Comment on above: Order Comment: Speci men Type: BLOOD SPECIMEN Ordering Facility: [facility] Address: [address] [place] [address] Performed By: #### 2 4323-8 #### [facility] CLIA [id number] [address] [place] Creatinine [Mass/Vol] 0.76 mg/dL Normal 0.58-0.96 [facility] Comment on above: Order Comment: Speci men Type: BLOOD SPECIMEN Ordering Facility: [facility] Address: [address] [place] [address] Performed By: #### 2 4323-8 #### [facility] CLIA [id number] [address] Creatinine and Glomerular filtration rate.predicted panel (S/P/Bld) 112 mL/min/1.73m??? Normal >=60 [facility] Comment on above: Order Comment: Speci men Type: BLOOD SPECIMEN Ordering Facility: [facility] Address: [address] [place] [address] Result Comment: Kanika mated Glomerular Filtration Rate [...] GFR. Performed By: #### 2 4323-8 #### [facility] CLIA [id number] [address] [place] [address] [place] Glucose [Mass/Vol] 86 mg/dL Normal 74-99 [facility] Comment on above: Order Comment: Faustino almeida Type: BLOOD SPECIMEN Ordering Facility: [facility] Address: [address] [place] [address] Result Comment: The [place] Diabetes Association (ADA) provides guidance for cutoff [...] Standards of Medical Care in Diabetes 2016, [place] [employer]. Diabetes Care. 2016.39(Suppl 1). Performed By: #### 2 4323-8 #### [facility] CLIA [id number] [address] [place] [address] [place] Potassium [Moles/Vol] 4.2 mmol/L Normal 3.7-5.1 [facility] Comment on above: Order Comment: Faustino almeida Type: BLOOD SPECIMEN Ordering Facility: [facility] Address: [address] [place] [address] Performed By: #### 2 4323-8 #### [facility] CLIA [id number] [address] [place] [address] [place] Protein [Mass/Vol] 7.3 g/dL Normal 6.3-8.0 [facility] Comment on above: Order Comment: Faustino almeida Type: BLOOD SPECIMEN Ordering Facility: [facility] Address: [address] [place] [address] Performed By: #### 2 4323-8 #### [facility] CLIA [id number] [address] Sodium [Moles/Vol] 136 mmol/L Normal 136-144 [facility] Comment on above: Order Comment: Speci men Type: BLOOD SPECIMEN Ordering Facility: [facility] Address: [address] [place] [address] Performed By: #### 2 4323-8 #### [facility] CLIA [id number] [address] Urea nitrogen [Mass/Vol] 12 mg/dL Normal 7-21 [facility] Comment on above: Order Comment: Speci men Type: BLOOD SPECIMEN Ordering Facility: [facility] Address: [address] [place] [address] Performed By: #### 2 4323-8 #### [facility] CLIA [id number] [address] HISTORY PHYSICALon HISTORY PHYSICAL HNO ID: [id number] Author: JERARDO ESCAMILLA PA-C Service: ? Author Type: Physician Gun Mechanic Type: H&P Filed: 01/05/2024 11:25 Note Text: PREANESTHESIA CONSULT CLINIC TELEHEALTH VISIT Patient has been identified by name and date of : Yes This is a virtual visit using [employer] Video Visit. It require patient-provider interaction for the medical decision making as documented below. Reason for contact: PACC visit Accompanied by: Self Scheduled Surgery: Procedure(s) (LRB): RIGHT PALPATION EXCISIONAL BIOPSY (Right) I have communicated my name and active licensure. The patient's identity and physical location were verified at the time of this visit. Either the patient or their legal termite control service representative has been informed of the risks [...] Sig acetami (more content not included)... Normal [facility] CNOVon 12-22-2023 CNOV Office Visit (RAFIQ ) YAEL AYERS ([id number]) 2000 F Date Time Provider Department 12/22/23 11:40 AM TETE MULTANI During your visit today, we recorded the following information about you: Temperature Pulse Respiration Blood pressure 98 degrees 85/minute 18/minute 127/77 Weight Last Period 81 kg 11/28/23 Tete Multani MD 12/22/2023 2:55 PM Signed [facility] [place] Department of Breast Surgery [facility] POST OPERATIVE FOLLOW-UP SERVICE DATE: [...] in 3rd trimester. 01/2023 - Delivered baby [place] mass grew in size February 2023 (OSH) Right breast US showing a 2.2 x 1.7 x 0.9 cm mass at 6:00. 04/11/2023 ([facility])- Right breast US-guided CNBx showed findings consistent [...] No swe (more content not included)... Normal [facility] CNOVon 11-08-2023 CNOV Office Visit (BRCRMN ) YAEL AYERS ([id number]) 2000 F Date Time Provider Department 11/08/23 1:20 PM TETE MULTANI BRJAVAN During your visit today, we recorded the following information about you: Weight Height 77.1 kg 1.626 m Tete Multani MD 11/08/2023 2:22 PM Signed [facility] [place] Department of Breast Surgery [facility] REASON for TODAY'S VISIT: No [...] in 3rd trimester. 01/2023 - Delivered baby [place] mass grew in size February 2023 (OSH) Right breast US showing a 2.2 x 1.7 x 0.9 cm mass at 6:00. 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 OB History T0 L1 SAB0 IAB0 Ectopic0 Multiple0 Live Births1 Comment: Currently breast feeding Renal Dietitian History LMP: 08/26/2023 (Approximate), Having periods Age at Menarche: 11 Age at First : 11 Age at Menopause: Renal Dietitian History Comments: Sexual Activity: Not Asked; No [...] MEDICAL HISTOR (more content not included)... Normal [facility] HISTORY PHYSICALon 4 HISTORY PHYSICAL HNO ID: [id number] Author: TETE MULTANI MD Service: ? Author Type: Physician Type: H&P Filed: 11/08/2023 14:22 Note Text: [facility] [place] Department of Breast Surgery [facility] REASON for TODAY'S VISIT: No [...] in 3rd trimester. 01/2023 - Delivered baby [place] mass grew in size February 2023 (OSH) Right breast US showing a 2.2 x 1.7 x 0.9 cm mass at 6:00. 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 OB History T0 L1 SAB0 IAB0 Ectopic0 Multiple0 Live Births1 Comment: Currently breast feeding Renal Dietitian History LMP: 08/26/2023 (Approximate), Having periods Age at Menarche: 11 Age at First : 11 Age at Menopause: Renal Dietitian History Comments: Sexual Activity: Not Asked; No [...] for Human (more content not included)... Normal [facility] CNPNon 11-04-2023 CNPN Telephone (BRCRMN) YAEL AYERS ([id number]) 2000 F Date Time Provider Department 11/04/23 [facility] your visit today, we recorded [...] four times daily for 5 days. - Flukhxdq-Th-Hlv-Fe-FA tab Take 1 tablet by mouth once [...] Status:Closed by KATIE SAEED on 11/04/23 Normal [facility] Bacteria identifiedon 2023 Bacteria identified Cx Nom (Unsp spec) Test: Tissue/Wound Culture/Smear Specimen Source: Wound/Tissue Specimen Type: Tissue/Biopsy Specimen Date: 11/03/20232106 Result Date: 11/06/20231433 Result Status: Final result Abnormal: Yes Resulting Lab: [facility] [id number] [place] [address] CULTURE (1+) Rare Serratia marcescens group (Abnormal) [...] Susceptible TRIMETHOPRIM/SULFAMETH OXAZOLE <=0.5/9.5 mcg/mL Susceptible Abnormal [facility] Comment on above: Performed By: #### 6 463-4 #### NORMA Nelson ([id number]) [facility] ([facility]) [address] [place] [address] Bacteria identified Cx Nom (Bld) Test: Blood Culture Specimen Source: Peripheral Venipuncture Specimen Type: Blood culture Specimen Date: 11/03/2023 2100 Result Date: 11/08/2023 1202 Result Status: Final result Abnormal: No Resulting Lab: [facility] [address] [place] [address] CULTURE No growth at 4 days - FINAL REPORT Normal [facility] Comment on above: Performed By: #### 6 00-7 #### NORMA Nelson ([id number]) [facility] ([facility]) [address] [place] [address] CBC W Auto Differential pane l (Bld)on 11-03-2023 Basophils (Bld) [#/Vol] 0.06 10*3/uL [facility] Basophils/100 WBC (Bld) 0.5 % 0.0 - 2.0 % [facility] Eosinophils (Bld) [#/Vol] 0.21 10*3/uL [facility] Eosinophils/100 WBC (Bld) 1.9 % 0.0 - 6.0 % [facility] Erythrocyte distribution width (RBC) [Ratio] 12.8 % 11.5 - 14.5 % [facility] Hematocrit (Bld) [Volume fraction] 41.2 % 36.0 - 46.0 % [facility] Hemoglobin (Bld) [Mass/Vol] 13.0 g/dL 12.0 - 16.0 g/dL [facility] Immature granulocytes (Bld) [#/Vol] 0.04 10*3/uL [facility] Immature granulocytes/100 WBC (Bld) 0.4 % 0.0 - 0.9 % [facility] Comment on above: Immature Granulocyte Count (IG) includes promyelocytes, myelocytes and metamyelocytes but does not include bands. Percent differential counts (%) should be interpreted in the context of the absolute cell counts (cells/UL). Interpretation and review of laboratory results Abnormal [facility] Lymphocytes (Bld) [#/Vol] 2.02 10*3/uL [facility] Lymphocytes/100 WBC (Bld) 17.9 % 13.0 - 44.0 % [facility] MCH (RBC) [Entitic mass] 27.5 pg 26.0 - 34.0 pg [facility] MCHC (RBC) [Mass/Vol] 31.6 g/dL Low 32.0 - 36.0 g/dL [facility] MCV (RBC) [Entitic vol] 87 fL 80 - 100 fL [facility] Monocytes (Bld) [#/Vol] 0.87 10*3/uL [facility] Monocytes/100 WBC (Bld) 7.7 % 2.0 - 10.0 % [facility] Neutrophils (Bld) [#/Vol] 8.11 10*3/uL High [facility] Comment on above: Percent differential counts (%) should be interpreted in the context of the absolute cell counts (cells/uL). Neutrophils/100 WBC (Bld) 71.6 % 40.0 - 80.0 % [facility] Nucleated RBC/100 WBC (Bld) [Ratio] 0.0 % [facility] Platelets (Bld) [#/Vol] 290 10*3/uL [facility] RBC (Bld) [#/Vol] 4.72 10*6/uL [facility] WBC (Bld) [#/Vol] 11.3 10*3/uL [facility] Basophils (Bld) [#/Vol] 0.06 x10*3/uL Normal 0.00-0.10 [facility] Comment on above: Performed By: #### 5 7021-8 #### MIKE SON ([id number]) [facility] ([facility]) [address] [place] [address] Basophils/100 WBC (Bld) 0.5 % Normal 0.0-2.0 [facility] Comment on above: Performed By: #### 5 7021-8 #### MIKE SNO ([id number]) [facility] ([facility]) [address] [place] [address] Eosinophils (Bld) [#/Vol] 0.21 x10*3/uL Normal 0.00-0.70 [facility] Comment on above: Performed By: #### 5 7021-8 #### MIKE SON ([id number]) [facility] ([facility]) [address] [place], [place] [address] Eosinophils/100 WBC (Bld) 1.9 % Normal 0.0-6.0 [facility] Comment on above: Performed By: #### 7021-8 #### MIKE SON ([id number]) [facility] ([facility]) [address] [place] [address] Erythrocyte distribution width (RBC) [Ratio] 12.8 % Normal 11.5-14.5 [facility] Comment on above: Performed By: #### 5 7021-8 #### MIKE SON ([id number]) [facility] ([facility]) [address] [place] [address] Hematocrit (Bld) [Volume fraction] 41.2 % Normal 36.0-46.0 [facility] Comment on above: Performed By: #### 5 7021-8 #### MIKE SON ([id number]) [facility] ([facility]) [address] [place] [address] Hemoglobin (Bld) [Mass/Vol] 13.0 g/dL Normal 12.0-16.0 [facility] Comment on above: Performed By: #### 5 7021-8 #### MIKE SON ([id number]) [facility] ([facility]) [address] [place] [address] Immature granulocytes (Bld) [#/Vol] 0.04 x10*3/uL Normal 0.00-0.70 [facility] Comment on above: Performed By: #### 5 7021-8 #### MIKE SON ([id number]) [facility] ([facility]) [address] [place], [place] [address] Immature granulocytes/100 WBC (Bld) 0.4 % Normal 0.0-0.9 [facility] Comment on above: Result Comment: Joaquina ture Granulocyte Count (IG) includes promyelocytes, myelocytes and metamyelocytes but does not include bands. Percent differential counts (%) should be interpreted in the context of the absolute cell counts (cells/UL). Performed By: #### 5 7021-8 #### MIKE SON ([id number]) [facility] ([facility]) [address] [place] [address] Lymphocytes (Bld) [#/Vol] 2.02 x10*3/uL Normal 1.20-4.80 [facility] Comment on above: Performed By: #### 5 7021-8 #### MIKE SON ([id number]) [facility] ([facility]) [address] [place] [address] Lymphocytes/100 WBC (Bld) 17.9 % Normal 13.0-44.0 [facility] Comment on above: Performed By: #### 5 7021-8 #### MIKE SON ([id number]) [facility] ([facility]) [address] [place] [address] MCH (RBC) [Entitic mass] 27.5 pg Normal 26.0-34.0 [facility] Comment on above: Performed By: #### 5 7021-8 #### MIKE SON ([id number]) [facility] ([facility]) [address] [place] [address] MCHC (RBC) [Mass/Vol] 31.6 g/dL Low 32.0-36.0 [facility] Comment on above: Performed By: #### 5 7021-8 #### MIKE SON ([id number]) [facility] ([facility]) [address] [place] [address] MCV (RBC) [Entitic vol] 87 fL Normal 80-100 [facility] Comment on above: Performed By: #### 5 7021-8 #### MIKE SON ([id number]) [facility] ([facility]) [address] [place] [address] Monocytes (Bld) [#/Vol] 0.87 x10*3/uL Normal 0.10-1.00 [facility] Comment on above: Performed By: #### 5 7021-8 #### MIKE SON ([id number]) [facility] ([facility]) [address] [place] [address] Monocytes/100 WBC (Bld) 7.7 % Normal 2.0-10.0 [facility] Comment on above: Performed By: #### 5 7021-8 #### MIKE SON ([id number]) [facility] ([facility]) [address] [place] [address] Neutrophils (Bld) [#/Vol] 8.11 x10*3/uL High 1.20-7.70 [facility] Comment on above: Result Comment: Perc ent differential counts (%) should be interpreted in the context of the absolute cell counts (cells/uL). Performed By: #### 5 7021-8 #### MIKE SON ([id number]) [facility] ([facility]) [address] [place] [address] Neutrophils/100 WBC (Bld) 71.6 % Normal 40.0-80.0 [facility] Comment on above: Performed By: #### 5 7021-8 #### MIKE SON ([id number]) [facility] ([facility]) [address] [place] [address] Nucleated RBC/100 WBC (Bld) [Ratio] 0.0 /100 WBCs Normal 0.0-0.0 [facility] Comment on above: Performed By: #### 5 7021-8 #### MIKE SON ([id number]) [facility] ([facility]) [address] [place] [address] Platelets (Bld) [#/Vol] 290 x10*3/uL Normal 150-450 [facility] Comment on above: Performed By: #### 5 7021-8 #### MIKE SON ([id number]) [facility] ([facility]) [address] [place] [address] RBC (Bld) [#/Vol] 4.72 x10*6/uL Normal 4.00-5.20 [facility] Comment on above: Performed By: #### 5 7021-8 #### MIKE SON ([id number]) [facility] ([facility]) [facility] [place] [address] WBC (Bld) [#/Vol] 11.3 x10*3/uL Normal 4.4-11.3 [facility] Comment on above: Performed By: #### 5 7021-8 #### MIKE SON ([id number]) [facility] ([facility]) [address] [place], [place] [address] Comprehensive metabolic 2000 panelon 11-03-2023 Albumin BCP dye [Mass/Vol] 4.2 g/dL 3.4 - 5.0 g/dL [facility] ALP [Catalytic activity/Vol] 105 U/L 33 - 110 U/L [facility] ALT With P-5'-P [Catalytic activity/Vol] 18 U/L 7 - 45 U/L [facility] Comment on above: Patients treated wit h Sulfasalazine may generate falsely decreased results for ALT. Anion gap [Moles/Vol] 10 mmol/L 10 - 20 mmol/L [facility] AST With P-5'-P [Catalytic activity/Vol] 12 U/L 9 - 39 U/L [facility] Bilirubin [Mass/Vol] 0.8 mg/dL 0.0 - 1 .2 mg/dL [facility] Calcium [Mass/Vol] 9.6 mg/dL 8.6 - 10. 3 mg/dL [facility] Chloride [Moles/Vol] 104 mmol/L 98 - 10 7 mmol/L [facility] CO2 [Moles/Vol] 26 mmol/L 21 - 32 mmol/L [facility] Creatinine [Mass/Vol] 0.71 mg/dL 0.50 - 1.05 mg/dL [facility] eGFR - PINF [facility] Comment on above: Calculations of kanika mated GFR are performed using the 2020 CKD-EPI Study Refit equation without the race variable for the IDMS-Traceable creatinine methods. https://jasn.asnjournals.org/content//ASN.4383877 988 Glucose [Mass/Vol] 87 mg/dL 74 - 99 mg/dL [facility] Interpretation and review of laboratory results Normal [facility] Potassium [Moles/Vol] 4.0 mmol/L 3.5 - 5.3 mmol/L [facility] Protein [Mass/Vol] 7.4 g/dL 6.4 - 8.2 g/dL [facility] Sodium [Moles/Vol] 136 mmol/L 136 - 145 mmol/L [facility] Urea nitrogen [Mass/Vol] 13 mg/dL 6 - 23 mg/dL [facility] Albumin BCP dye [Mass/Vol] 4.2 g/dL Normal 3.4-5.0 [facility] Comment on above: Performed By: #### 2 4323-8 #### MIKE SON ([id number]) [facility] ([facility]) [address] [place] [address] ALP [Catalytic activity/Vol] 105 U/L Normal 33-110 [facility] Comment on above: Performed By: #### 2 4323-8 #### MIKE OSN ([id number]) [facility] ([facility]) [address] [place] [address] ALT With P-5'-P [Catalytic activity/Vol] 18 U/L Normal 7-45 [facility] Comment on above: Result Comment: Alma Rosa ents treated with Sulfasalazine may generate falsely decreased results for ALT. Performed By: #### 2 4323-8 #### MIKE SON ([id number]) [facility] ([facility]) [address] [place] [address] Anion gap [Moles/Vol] 10 mmol/L Normal 10-20 [facility] Comment on above: Performed By: #### 2 4323-8 #### MIKE SON ([id number]) [facility] ([facility]) [address] [place] [address] AST With P-5'-P [Catalytic activity/Vol] 12 U/L Normal 9-39 [facility] Comment on above: Performed By: #### 2 4323-8 #### MIKE SON ([id number]) [facility] ([facility]) [address] [place] [address] Bilirubin [Mass/Vol] 0.8 mg/dL Normal 0.0-1.2 [facility] Comment on above: Performed By: #### 2 4323-8 #### MIKE SON ([id number]) [facility] ([facility]) [address] [place] [address] Calcium [Mass/Vol] 9.6 mg/dL Normal 8.6-10.3 [facility] Comment on above: Performed By: #### 2 432-8 #### MIKE SON ([id number]) [facility] ([facility]) [address] [place] [address] Chloride [Moles/Vol] 104 mmol/L Normal 98-107 [facility] Comment on above: Performed By: #### 2 432-8 #### MIKE SON ([id number]) [facility] ([facility]) [address] [place] [address]31 CO2 [Moles/Vol] 26 mmol/L Normal 21-32 [facility] Comment on above: Performed By: #### 2 4323-8 #### MIKE SON ([id number]) [facility] ([facility]) [address] [place] [address]172 Creatinine [Mass/Vol] 0.71 mg/dL Normal 0.50-1.05 [facility] Comment on above: Performed By: #### 2 4323-8 #### MIKE SON ([id number]) [facility] ([facility]) [address] [place] [address]150 GFR/1.73 sq M.predicted MDRD (S/P/Bld) [Vol rate/Area] mL/min/{1.73_m2} Normal >60 [facility] Comment on above: Result Comment: Calc ulations of estimated GFR are performed using the 2020 CKD-EPI Study Refit equation without the race variable for the IDMS-Traceable creatinine methods. https://jasn.asnjournals.org/content/early/ASN.3841881 988 Performed By: #### 2 4323-8 #### MIKE SON ([id number]) [facility] ([facility]) [address] [place] [address]16 Glucose [Mass/Vol] 87 mg/dL Normal 74-99 [facility] Comment on above: Performed By: #### 2 4323-8 #### MIKE SON ([id number]) [facility] ([facility]) [address] [place] [address]5936 Potassium [Moles/Vol] 4.0 mmol/L Normal 3.5-5.3 [facility] Comment on above: Performed By: #### 2 4323-8 #### MIKE SON ([id number]) [facility] ([facility]) [address] [place] [address]39 Protein [Mass/Vol] 7.4 g/dL Normal 6.4-8.2 [facility] Comment on above: Performed By: #### 2 4323-8 #### MIKE SON ([id number]) [facility] ([facility]) [address] [place] [address]32 Sodium [Moles/Vol] 136 mmol/L Normal 136-145 [facility] Comment on above: Performed By: #### 2 4323-8 #### MIKE SON ([id number]) [facility] ([facility]) [address] [place] [address] 48701 Urea nitrogen [Mass/Vol] 13 mg/dL Normal 6-23 [facility] Comment on above: Performed By: #### 2 4323-8 #### MIKE SON ([id number]) [facility] ([facility]) [address] [place] [address] 31654 Lactateon 11-03-2023 Lactate [Moles/Vol] 0.5 mmol/L 0.4 - 2. 0 mmol/L [facility] Lactate [Moles/Vol] 0.5 mmol/L Normal 0.4-2.0 [facility] Comment on above: Order Comment: Venip uncture immediately after or during the administration of Metamizole may lead to falsely low results. Testing should be performed immediately prior to Metamizole dosing. Performed By: #### 2 524-7 #### MCKEON HUY ([id number]) [facility] ([facility]) [address] [place] [address] Lactate [Moles/Vol]on 2023 Interpretation and review of laboratory results Normal [facility] Venipuncture immediately after or during the administration of Metamizole may lead to falsely low results. Testing should be performed immediately prior to Metamizole dosing. [facility] No Panel Informationon 11-02 Extra Tube Hold for add-ons. [facility] Comment on above: Auto resulted. [facility] Bacteria Wnd Culton 11-02-19 24 Bacteria identified Cx Nom (Wound) ORGANISM ID: 1 Rare skin rachael ORGANISM ID: 2 Few Cutibacterium avidum No further workup GRAM STAIN: No organisms seen No Polymorphonuclear Leukocytes Abnormal [facility] Comment on above: Performed By: #### 6 462-6 ####[facility] [id number] [address] [place] CNOVon 11-02-2023 CNOV Office Visit (BRCRCA ) YAEL AYERS ([id number]) 2000 F Date Time Provider Department 11/02/23 9:30 AM NARDA FARIA During your visit today, we recorded the following information about you: Narda Faria MD 11/02/2023 1:02 PM Signed [facility] Surgical [facility] Department of Breast Surgical Oncology [facility] BREAST FOLLOW-UP SERVICE DATE: 11/02/2023 [...] Radiology, Oru In Addenda RESULT: FINAL REPORT #[id number] - [facility] US BIOPSY BREAST RT ULTRASOUND GUIDED [...] [place] performed the entire procedure without an special education teaching assistant. 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 MELLISSA/mellissa/10/13/23 [facility] [employer] BREAST LTD RIGHT 11/02/2023 11:20 AM - Radiology, Oru In Impression IMPRESSION: PROBABLY BENIGN - SHORT TERM INTERVAL FOLLOW-UP RECOMMENDED Diffuse skin thickening and hyperemia at 6:00 at the site of clinical concern. No drainable abscess. Follow-up ultrasound is recommended February 2024 (more content not included)... Normal [facility] US BREAST LTD RTon 11-01 [facility] US BREAST LTD RT * * *Final Report* * * DATE OF EXAM: Nov 02 2023 11:01AM [facility] 0594 - [facility] US BREAST LTD RT / PROCEDURE REASON: Breast abscess * * * * Physician Interpretation * * * * RESULT: #[id number] - [facility] BREAST LTD RT LIMITED ULTRASOUND OF RIGHT BREAST: 11/02/2023 HISTORY: Breast Abscess. RESULT: Comparison is made to exam dated: 06/14/2023 ultrasound - [facility] Breast [place]. Color flow ultrasound of the right breast [...] at 7:00. Ginette Ingram M.D. ns/:11/02/2023 11:19:21 Body And Fender Mechanic Apprentice(s): RT Chiki(R)(M), [facility] Breast [place] Ultrasound BI-RADS: 3 Probably benign finding - [...] Health, Family Medicine, and Medical/Surgical Oncology, the [facility] has carefully reviewed the data and reached [...] their providers when to stop screening mammograms. Tube Blower: Mckinley Transcribe Date/Time: Nov 02 2023 11:01A Dictated by : GINETTE INGRAM MD This examination was interpreted and the report reviewed and electronically signed by: GINETTE INGRAM MD on Nov 02 2023 11:19AM EST [id number] Normal [facility] Breast - right limitedon 11-02-2023 IMPRESSION: PROBABLY BENIGN - SHORT TERM INTERVAL FOLLOW-UP RECOMMENDED Diffuse skin thickening and hyperemia at 6:00 at the site of clinical concern. No drainable abscess. Follow-up ultrasound is recommended February 2024 for previously reported findings at 7:00. Ginette Ingram M.D. ns/:11/02/2023 11:19:21 Body And Fender Mechanic Apprentice(s): Lizzie Langley RT(R)(M), [facility] & Breast [place] Ultrasound BI-RADS: 3 Probably benign finding - [...] Health, Family Medicine, and Medical/Surgical Oncology, the [facility] has carefully reviewed the data and reached [...] their providers when to stop screening mammograms. Tube Blower: Mckinley Transcribe Date/Time: Nov 02 2023 11:01A Dictated by : GINETTE INGRAM MD This examination was interpreted and the report reviewed and electronically signed by: GINETTE INGRAM MD on Nov 02 2023 11:19AM EST DIVISION OF RADIOLOGY * * *Final Report* * * DATE OF EXAM: Nov 02 2023 11:01AM [facility] 0594 - [facility] US BREAST LTD RT / PROCEDURE REASON: Breast abscess * * * * Physician Interpretation * * * * RESULT: #[id number] - [facility] US BREAST LTD RT LIMITED ULTRASOUND OF RIGHT BREAST: 11/02/2023 HISTORY: Breast Abscess. RESULT: Comparison is made to exam dated: 06/14/2023 ultrasound - [facility] flow [facility] of the right breast 6 o'clock region was performed. Escalera scale images of the real-time examination were reviewed. There is diffuse skin thickening and hyperemia at 6:00. A biopsy clip is incidentally noted. No drainable fluid collection.. DIVISION OF RADIOLOGY Provider, [facility] - 11/02/2023 * * *Final Report* * * DATE OF EXAM: Nov 02 2023 11:01AM [facility] 0594 - [facility] BREAST [facility] RT / PROCEDURE REASON: Breast abscess * * * * Physician Interpretation * * * * RESULT: #[id number] - [facility] BREAST LTD RT LIMITED ULTRASOUND OF RIGHT BREAST: 11/02/2023 HISTORY: Breast Abscess. RESULT: Comparison is made to exam dated: 06/14/2023 ultrasound - [facility] Color flow ultrasound of the right breast [...] at 7:00. Ginette Ingram M.D. ns/:11/02/2023 11:19:21 Body And Fender Mechanic Apprentice(s): Lizzie Langley RT(R)(M), [facility] Breast [place] Ultrasound BI-RADS: 3 Probably benign finding - [...] Health, Family Medicine, and Medical/Surgical Oncology, the [facility] has carefully reviewed the data and reached [...] their providers when to stop screening mammograms. Tube Blower: Mckinley Transcribe Date/Time: Nov 02 2023 11:01A Dictated by : GINETTE INGRAM MD This examination was interpreted and the report reviewed and electronically signed by: GINETTE INGRAM MD on Nov 02 2023 11:19AM EST [facility] Radiology Study observation (narrative) [facility] US Breast - right limitedOrd ered By: Michelle Provider on 11-02-2023 [facility] 10-13-2023 CNPN Telephone (RADMN) YAEL AYERS ([id number]) 2000 F Date Time Provider Department 10/13/23 [...] Results [95] Prescriptions as of 10/13/2023 - Kxvazhlj-Jg-Vtu-Fe-FA tab Take 1 tablet by mouth once [...] Status:Closed by DONNA GRACIA on 10/13/23 Normal [facility] US BIOPSY BREAST RTon [facility] US BIOPSY BREAST RT * * *Final Report* * * * * * SEE BOTTOM OF REPORT FOR ADDENDED TEXT * * * DATE OF EXAM: Oct 11 2023 3:09PM [facility] 0598 - [facility] US BIOPSY BREAST RT / PROCEDURE REASON: Breast disorder * * * * Physician Interpretation * * * * RESULT: FINAL REPORT #[id number] - [facility] US BIOPSY BREAST RT ULTRASOUND GUIDED [...] [place] performed the entire procedure without an special education teaching assistant. Correlation is made to exams dated: [...] recommended in 6 months. Deena sanford/mckinley:10/14/2023 16:29:31 Body And Fender Mechanic Apprentice(s): Cookie Garcia, [facility] Multiple national specialty organizations have released breast cancer screening guidelines for women at average risk for developing breast cancer - guidelines that are based on both evidence and opinion, yet differ on when to start and how often to screen for breast cancer. With representation from Breast Imaging, Internal Medicine, Women's Health, Family Medicine, and Medical/Surgical Oncology, the [facility] has carefully reviewed the data and reached [...] their providers when to stop screening mammograms. Tube Blower: Mckinley Transcribe Date/Time: Oct 11 2023 3:08P Dictated by : DEENA VEGAS MD This examination was interpreted and the report reviewed and electronically signed by: DEENA VEGAS MD on Oct 11 2023 3:18PM EST This document has been addended by: DEENA VEGAS MD on Oct 14 2023 4:29PM EST [id number] Normal [facility] PT EDon 10-11-2023 PT ED HNO ID: [id number] Author: COOKIE GARCIA RT(R) Service: Radiology Author [...] MATERIAL: Homegoing instructions REFERRAL (RECOMMENDATION): None Normal [facility] SURGICAL PATHOLOGYon CASE REPORT Normal [facility] Comment on above: Order Comment: Speci men Type: TISSUE SPECIMENOrdering Facility: [facility] Address: [address] [place] [address] Result Comment: Surg ical Pathology Report Case: [id number] Authorizing Provider: Deena Vegas MD Collected: 10/11/2023 02:56 PM Ordering Location: Mammography Received: 10/11/2023 05:33 PM Pathologist: Keshav Nicholson MD Specimen: Breast, Right, Core Biopsy, 6:00 4 cmfn, ultrasound bx, Hydromark open coil clip Performed By: #### S ####[facility] [id number] [address] [place] FINAL DIAGNOSIS Normal [facility] Comment on above: Order Comment: Speci men Type: TISSUE SPECIMENOrdering Facility: [facility] Address: [address] [place] [address] Result Comment: Righ t breast, 6:00, 4 cmFN, ultrasound-guided core biopsy with open coil clip - Benign breast tissue with organizing fat necrosis, multinucleated giant cell reaction and lactational changes. MELLISSA/mellissa/10/13/23 Performed By: #### S ####[facility] [id number] [address] [place] FINAL PERFORMING LAB Normal [facility] Comment on above: Order Comment: Speci men Type: TISSUE SPECIMENOrdering Facility: [facility] Address: [address] [place] [address] Result Comment: Diag nostic interpretation performed at [facility], [address] [place] [address] CLIA# [id number] Bobbin Dumper: Chano Casillas M.D. Performed By: #### S ####[facility] [id number] [place] [address] [place] GROSS DESCRIPTION Normal [facility] Comment on above: Order Comment: Speci men Type: TISSUE SPECIMENOrdering Facility: [facility] Address: [address] [place] [address] Result Comment: A. B reast, Right, Core [...] 2023 10:18 PM Gross examination performed at [facility], [address] [place] [address] Performed By: #### S ####[facility] [id number] [place] [address] [place] US Guidance for biopsy of Br east - righton 10-11-2023 IMPRESSION: ULTRASOU ND GUIDED BIOPSY Ultrasound guided biopsy of the region in the right breast at 6 o'clock with placement of a clip was successful with no apparent post procedure complications. Waiting for pathology results. A final report will be issued when these become available. Deena sanford/mckinley:10/11/2023 15:18:24 Body And Fender Mechanic Apprentice(s): Cookie Garcia, [facility] Multiple national specialty organizations have released breast cancer screening guidelines for women at average risk for developing breast cancer - guidelines that are based on both evidence and opinion, yet differ on when to start and how often to screen for breast cancer. With representation from Breast Imaging, Internal Medicine, Women's Health, Family Medicine, and Medical/Surgical Oncology, the [facility] has carefully reviewed the data and reached [...] their providers when to stop screening mammograms. Tube Blower: Mckinley Transcribe Date/Time: Oct 11 2023 3:08P Dictated by : DEENA VEGAS MD This examination was interpreted and the report reviewed and electronically signed by: DEENA VEGAS MD on Oct 11 2023 3:18PM [facility] DIVISION OF RADIOLOGY * * *Final Report* * * DATE OF EXAM: Oct 11 2023 3:09PM [facility] 0598 - [facility] US BIOPSY BREAST RT / PROCEDURE REASON: Breast disorder * * * * Physician Interpretation * * * * RESULT: #[id number] - [facility] US BIOPSY BREAST RT ULTRASOUND GUIDED [...] [place] performed the entire procedure without an special education teaching assistant. Correlation is made to exams dated: [...] for pathological analysis. DIVISION OF RADIOLOGY Provider, [facility] - 10/11/2023 * * *Final Report* * * DATE OF EXAM: Oct 11 2023 3:09PM [facility] 0598 - [facility] US BIOPSY BREAST RT / PROCEDURE REASON: Breast disorder * * * * Physician Interpretation * * * * RESULT: #[id number] - [facility] US BIOPSY BREAST RT ULTRASOUND GUIDED [...] [place] performed the entire procedure without an special education teaching assistant. Correlation is made to exams dated: [...] when these become available. Deena sanford/mckinley:10/11/2023 15:18:24 Body And Fender Mechanic Apprentice(s): Cookie Garcia, [facility] [place] Multiple national specialty organizations have released breast cancer screening guidelines for women at average risk for developing breast cancer - guidelines that are based on both evidence and opinion, yet differ on when to start and how often to screen for breast cancer. With representation from Breast Imaging, Internal Medicine, Women's Health, Family Medicine, and Medical/Surgical Oncology, the [facility] has carefully reviewed the data and reached [...] their providers when to stop screening mammograms. Tube Blower: Mckinley Transcribe Date/Time: Oct 11 2023 3:08P Dictated by : DEENA VEGAS MD This examination was interpreted and the report reviewed and electronically signed by: DEENA VEGAS MD on Oct 11 2023 3:18PM EST [facility] Radiology Study observation (narrative) [facility] US Guidance for biopsy of Br east - rightOrdered By: Ccf Provider on 10-11-2023 [facility] CNOVon 09-13-2023 CNOV Office Visit (BRCRMN ) YAEL AYERS ([id number]) 2000 F Date Time Provider Department 09/13/23 11:30 AM NARDA FARIA [facility] During your visit today, we recorded the following information about you: Weight Height Last Period 77.1 kg 1.626 m 08/26/23 Narda Faria MD 09/13/2023 5:28 PM Signed [facility] Surgical [facility] Department of Breast Surgical Oncology [facility] BREAST FOLLOW-UP SERVICE DATE: 09/13/2023 [...] which included preparing to see the patient, rkmn-[id number] patient care, completing clinical documentation, obtaining and/or [...] quadrant [N63.10] Prescriptions as of 09/13/2023 - Micmuwyx-Gj-Aaf-Fe-FA tab Take 1 tablet by mouth once [...] (150 MG) BY MOUTH IN THE MORNING. [employer] (more content not included)... Normal [facility] [employer] BREAST LTD RTon 09-12 [facility] [employer] BREAST [employer] RT * * *Final Report* * * DATE OF EXAM: Sep 13 2023 11:32AM [facility] 0594 - [facility] [employer] BREAST [employer] RT / PROCEDURE REASON: multiple diagnoses * * * * Physician Interpretation * * * * RESULT: #[id number] - [facility] [employer] BREAST [employer] RT LIMITED ULTRASOUND OF RIGHT BREAST: 09/13/2023 [...] to leaving the department. Yolanda franco/mckinley:09/13/2023 14:48:16 Body And Fender Mechanic Apprentice(s): RT Chiki(R)(M), [facility] [place] Ultrasound BI-RADS: 4 Suspicious finding - Biopsy [...] Health, Family Medicine, and Medical/Surgical Oncology, the [facility] has carefully reviewed the data and reached [...] their providers when to stop screening mammograms. Tube Blower: Mckinley Transcribe Date/Time: Sep 13 2023 10:52A Dictated by : YOLANDA ANGELA MD This examination was interpreted and the report reviewed and electronically signed by: YOLANDA ANGELA MD on Sep 13 2023 2:48PM EST [id number] Normal [facility] Breast - right limitedon 09-13-2023 [facility] CNOVon 06-14-2023 CNOV Office Visit (BRCRMN ) YAEL AYERS ([id number]) 2000 F Date Time Provider Department 06/14/23 11:45 AM NARDA FARIA [facility] During your visit today, we [...] which included preparing to see the patient, cegt-pn-jcqo patient care, completing clinical documentation, obtaining and/or [...] breast [N63.13] Prescriptions as of 06/14/2023 - Hnzgyxes-Qa-Bqq-Fe-FA tab Take 1 tablet by mouth once [...] Service: OFFICE/OUTPATIENT ESTABLISHED MOD MDM 30 MIN [64988] Encounter Status:Closed by NARDA FARIA on 06/14/23 Normal [facility] [employer] BREAST LTD RTon 06-14 [facility] [employer] BREAST [employer] RT * * *Final Report* * * DATE OF EXAM: Jun 14 2023 11:51AM [facility] 0594 - [facility] [employer] BREAST [employer] RT / PROCEDURE REASON: Mass of lower outer quadrant of right breast * * * * Physician Interpretation * * * * RESULT: #[id number] - [facility] [employer] BREAST [facility] RT LIMITED ULTRASOUND OF RIGHT BREAST: 06/14/2023 [...] of Dr. Faria. Renetta Egan M.D., mc, am/mkcinley:06/14/2023 12:55:28 Body And Fender Mechanic Apprentice(s): RT Chiki(R)(M), [facility] [...] Health, Family Medicine, and Medical/Surgical Oncology, the [facility] has carefully reviewed the data and reached [...] their providers when to stop screening mammograms. Tube Blower: Mckinley Transcribe Date/Time: Jun 14 2023 11:21A Dictated by : KRISTI EGAN MD This examination was interpreted and the report reviewed and electronically signed by: RENETTA SULLIVAN MD on Jun 14 2023 12:55PM EST [id number] Normal [facility] Cytology Cervical or vaginal smear or scraping studyon 05-02-2023 [facility] Fetaldex / Kleihauer Betkeon 02-09-2023 [employer] Betke Ratio 0.0007 Ratio Normal [facility] Comment on above: Result Comment: Feta l maternal hemorrhage up to 15 ml 1 vial of Rhogam if indicated --- 02/09/231836 --- Kleisaauer Bethillary previously reported as: 0.0007 Ratio PERFORMED BY: [facility] [address] [place] [address] PATHOLOGIST TRAFFIC ENUMERATOR ARLEY CASTRO M.D. US PREG CERVICAL LENGTHon [...] KEV WOLFF Date: 2022-09-27 16:00 Normal [facility] AFP MATERNAL FOR SPINA BIFID Aon 09-17-2022 AFP MoM 1.64 Normal [facility] Comment on above: Performed By: #### C T/NGNA #### [facility] [address] [address] [address] Phill Og AFP Value 67.6 ng/mL Normal [facility] Comment on above: Performed By: #### C T/NGNA #### [facility] [address] [address] [address] Phill Og AFP, Serum for Spina Bifida Report Normal [facility] Comment on above: Performed By: #### C T/NGNA #### [facility] [address] [address] [address] Phill Og Comment Comment Normal [facility] Comment on above: Result Comment: Katie Shay, Ph.D., [facility] Director . References: Available Upon Request. . Multiples Of Median Cutoffs For AFP Elevations Wheeler 2.5 Black 2.8 IDD 2.0 Twins 4.5 Abbreviation Definitions IDD - Insulin Dep Diabetes OSBR - Open Spina Bifida Risk . For further inquiries contact [facility] at [phone]. . This test was developed and its performance characteristics determined by [employer]. It has not been cleared or approved by the Food and Drug Administration. Performed By: #### C T/NGNA #### [facility] [address] [place] [address] Dr. Phill Castanon Age Collection Date 18.4 weeks Normal [facility] Comment on above: Performed By: #### C T/NGNA #### [facility] [address] [place] [address] Dr. Phill Og Gestat, Age Based on Ultrasound Normal [facility] Comment on above: Result Comment: 14.4 on 08/18/2022 Recalculations are not recommended when gestational dating by LMP and ultrasound are within 10 days. Performed By: #### C T/NGNA #### [facility] [address] [place] [address] Dr. Phill Og Insulin Dep Diabetes No Normal [facility] Comment on above: Performed By: #### C T/NGNA #### [facility] [address] [place] [address] Dr. Phill Og Interpretation Comment Normal [facility] Comment on above: Result Comment: Inte [...] Customer Services to discuss available options. The [employer] recommends amniocentesis be offered to women age 35 and older. Performed By: #### C T/NGNA #### [facility] [address] [place] [address] Dr. Phill Og [age] Normal [facility] Comment on above: Performed By: #### C T/NGNA #### [facility] [address] [place] [address] Dr. Phill Og Multiple Gestation No Normal [facility] Comment on above: Performed By: #### C T/NGNA #### [facility] [address] [address] [address] Phill Og OSBR Risk 1 [place] 1895 Normal [facility] Comment on above: Performed By: #### C T/NGNA #### [facility] [address] [place] [address] Dr. Phill Og PDF . Normal [facility] Comment on above: Performed By: #### C T/NGNA #### [facility] [address] [place] [address] Dr. Phill Og Race Normal [facility] Comment on above: Performed By: #### C T/NGNA #### [facility] [address] [place] [address] Dr. Phill Og Test Results: Negative Normal [facility] Comment on above: Performed By: #### C T/NGNA #### [facility] [address] [place] [address] Dr. Phill Og CHLAMYDIA/GONOCOCCUS DANICA (SW AB/URINE/PAPon 08-21-2022 Chlamydia trachomatis, DANICA Negative Normal Negative [facility] Comment on above: Performed By: #### C T/NGNA #### [facility] [address] [place] [address] Dr. Phill Og Neisseria gonorrhoeae, DANICA Negative Normal Negative [facility] Comment on above: Performed By: #### C T/NGNA #### [facility] [address] [place] [address] Dr. Phill Og VAGINITIS/VAGINOSIS DNA PROB Felipe 08-20-2022 Geo species Positive Abnormal Negative [facility] Comment on above: Performed By: #### V AGINT #### [facility] [address] [place] [address] Dr. Phill Og Gardnerella vaginalis Positive Abnormal Negative [facility] Comment on above: Performed By: #### V AGINT #### [facility] [address] [place] [address] Dr. Phill Og Trichomonas vaginalis Negative Normal Negative [facility] Comment on above: Performed By: #### V AGINT #### [facility] [address] [place] [address] Dr. Phill Og HEP B SURFACE ANTIGEN SCREEN on 06-25-2022 HBsAg Screen Negative Normal Negative [facility] Comment on above: Performed By: #### H BSANS #### [facility] [address] [place] [address] Dr. Phill Og HEPATITIS C VIRUS AB W/ REFL EX QUANTon 06-25-2022 HCV AB <0.1 Normal 0.0-0.9 [facility] Comment on above: Performed By: #### H CVPCRR #### [facility] [address] [place] [address] Dr. Phill Og Interpretation: Comment Normal [facility] Comment on above: Result Comment: Nega tive Not infected with HCV, unless recent infection is suspected or other evidence exists to indicate HCV infection. Performed By: #### H CVPCRR #### [facility] [address] [place] [address] Dr. Phill Og HIV 1 AND 2 WITH REFLEXon HIV Screen 4th Generation wRfx Non-Reactive Normal Non Reactive [facility] Comment on above: Result Comment: HIV Negative HIV-1/HIV-2 antibodies and HIV-1 p24 antigen were NOT detected. There is no laboratory evidence of HIV infection. Performed By: #### H IV12 #### [facility] [address] [place] [address] Dr. Phill Og RPR QUANTon 06-25-2022 Rapid Plasma Reagin, Quant Non-Reactive Normal NonRea<1:1 [facility] Comment on above: Result Comment: Plea se Note: This test does not meet current guidelines for screening and diagnosis of syphilis. This test is intended for following treatment response in patients being treated for syphilis infection. To screen for syphilis infection, a reflex cascade that includes both RPR and a treponema-specific assay should be utilized, such as Treponema pallidum (Syphilis) Screening [employer] (536819) or Rapid Plasma Reagin (RPR) Test With Reflex to Quantitative RPR and Confirmatory Treponema pallidum Antibodies (145079). Performed By: #### R PRQ #### [facility] [address] [place] [address] Dr. Phill Og RUBELLA AB IGGon 06-25-2022 Rubella Antibodies, IgG 6.40 index Normal Immune >0.99 [facility] Comment on above: Result Comment: Non- immune <0.90 Equivocal 0.90 - 0.99 Immune >0.99 Performed By: #### R UBIGG #### [facility] [address] [place] [address] Dr. Phill Og CBC AUTO DIFFon 06-24-2022 BASO # 0.0 103/ul Normal 0.0-0.1 [facility] Comment on above: Performed By: #### C BC #### [facility] [address] [place] [address] Dr. Phill Og Basophils/100 WBC (Bld) 0.2 % Normal 0.2-2.0 [facility] Comment on above: Performed By: #### C BC #### [facility] [address] [place] [address] Dr. Phill Og EO # 0.1 103/ul Normal 0.0-0.7 [facility] Comment on above: Performed By: #### C BC #### [facility] [address] [place] [address] Dr. Phill Og Eosinophils/100 WBC (Bld) 0.5 % Critically low 0.9-7.0 [facility] Comment on above: Performed By: #### C BC #### [facility] [address] [place] [address] Dr. Phill Og Erythrocyte distribution width (RBC) [Ratio] 12.5 % Normal 11.0-15.0 [facility] Comment on above: Performed By: #### C BC #### [facility] [address] [place] [address] Dr. Phill Og Hematocrit (Bld) [Volume fraction] 45.5 % Normal 36.0-48.0 [facility] Comment on above: Performed By: #### C BC #### [facility] [address] [address] [address] Phill Og Hemoglobin (Bld) [Mass/Vol] 13.7 g/dL Normal 12.0-16.0 [facility] Comment on above: Performed By: #### C BC #### [facility] [address] [address] [address] Phill Og IG # 0.04 10e3/ul Critically high 0.00-0.03 [facility] Comment on above: Performed By: #### C BC #### [facility] [address] [place] [address] Dr. Phill Og IG % 0.3 % Normal 0.0-0.5 [facility] Comment on above: Performed By: #### C BC #### [facility] [address] [place] [address] Dr. Phill Og LYMPH # 2.7 103/ul Normal 1.2-3.8 [facility] Comment on above: Performed By: #### C BC #### [facility] [address] [place] [address] Dr. Phill Og Lymphocytes/100 WBC (Bld) 21.7 % Normal 20.5-60.0 [facility] Comment on above: Performed By: #### C BC #### [facility] [address] [place] [address] Dr. Phill Og MANUAL DIFF REQ NO Normal [facility] Comment on above: Performed By: #### C BC #### [facility] [address] [place] [address] Dr. Phill Og MCH (RBC) [Entitic mass] 28.2 pg Normal 26.7-34.0 [facility] Comment on above: Performed By: #### C BC #### [facility] [address] [place] [address] Dr. Phill Og MCHC (RBC) [Mass/Vol] 30.1 g/dL Normal 29.9-35.2 [facility] Comment on above: Performed By: #### C BC #### [facility] [address] [place], [place] [address] Dr. Phill Og MCV (RBC) [Entitic vol] 93.8 fL Normal 81.0-99.0 [facility] Comment on above: Performed By: #### C BC #### [facility] [address] [place] [address] Dr. Phill Og MONO # 0.9 103/ul Critically high 0.3-0.8 [facility] Comment on above: Performed By: #### C BC #### [facility] [address] [place] [address] Dr. Phill Og Monocytes/100 WBC (Bld) 7.1 % Normal 1.7-12.0 [facility] Comment on above: Performed By: #### C BC #### [facility] [address] [place] [address] Dr. Phill Og NEUT # 8.8 103/ul Critically high 1.4-6.5 [facility] Comment on above: Performed By: #### C BC #### [facility] [address] [place] [address] Dr. Phill Og Neutrophils/100 WBC (Bld) 70.2 % Normal 43.0-75.0 [facility] Comment on above: Performed By: #### C BC #### [facility] [address] [place] [address] Dr. Phill Og Platelet mean volume (Bld) [Entitic vol] 10.5 fL Normal 9.5-13.5 [facility] Comment on above: Performed By: #### C BC #### [facility] [address] [place] [address] Dr. Phill Og PLT 270 103/ul Normal 150-450 [facility] Comment on above: Performed By: #### C BC #### [facility] [address] [place] [address] Dr. Phill Og RBC 4.85 106/ul Normal 4.20-5.40 [facility] Comment on above: Performed By: #### C BC #### [facility] [address] [place] [address] Dr. Phill Og WBC 12.5 103/ul Critically high 4.0-11.0 [facility] Comment on above: Performed By: #### C BC #### [facility] [address] [address] [address] Phill Og CULTURE URINEon 06-24-2022 CULTURE URINE Isolate 1 Geo albicans 50,000 cfu/mL of Normal [facility] Comment on above: Performed By: #### C T/NGNA #### [facility] [address] [address] [address] Phill Og GLYCOHEMOGLOBIN A1Con 2022 ADA RECOMMENDATION SEE BELOW Normal [facility] Comment on above: Result Comment: ADA RECOMMENDED LIMIT 4.0 - 6.0 ADA THERAPEUTIC TARGET < 7.0 ACTION SUGGESTED > 7.0 Performed By: #### A 1C #### [facility] [address] [place] [address] Dr. Phill Og Glucose [Mass/Vol] 91 mg/dL Normal [facility] Comment on above: Performed By: #### A 1C #### [facility] [address] [address] [address] Phill Og HbA1c (Bld) [Mass fraction] 4.8 % Normal 4.5-6.2 [facility] Comment on above: Performed By: #### A 1C #### [facility] [address] [place] [address] Dr. Phill Og TYPE AND SCREENon 06-24-2022 TYPE AND SCREEN Negative Normal [facility] Comment on above: Performed By: #### C T/NGNA #### [facility] [address] [address] [address] Phill Og US PREG TVon 06-24-2022 [...] by: KEV WOLFF Date: 2022-06-24 10:06 Normal [facility] US PREG TVon 06-10-2022 US PREG [...] by: KEV WOLFF Date: 2022-06-10 14:48 Normal [facility] PAP ACOG PANEL 2: 20 to 28on 04-28-2022 . . Normal [facility] Comment on above: Performed By: #### 4 [id number] #### [facility] [address] [place] [address] Dr. Phill Og Age Gdln ACOG Testing - Normal [facility] Comment on above: Performed By: #### 4 [id number] #### [facility] [address] [place] [address] Dr. Phill Og DIAGNOSIS: Comment Normal [facility] Comment on above: Result Comment: NEGA TIVE FOR INTRAEPITHELIAL LESION OR MALIGNANCY. FUNGAL ORGANISMS MORPHOLOGICALLY CONSISTENT WITH GEO SPECIES ARE PRESENT. Performed By: #### 4 [id number] #### [facility] [address] [place] [address] Dr. Phill Og Methodology: Comment Normal [facility] Comment on above: Result Comment: This liquid based ThinPrep(R) pap test was screened with the use of an image guided system. Performed By: #### 4 [id number] #### [facility] [address] [place] [address] Dr. Phill Og Note: Comment Normal [facility] Comment on above: Result Comment: The Pap smear is a screening test designed to aid in the detection of premalignant and malignant conditions of the uterine cervix. It is not a diagnostic procedure and should not be used as the sole means of detecting cervical cancer. Both false-positive and false-negative reports do occur. . Performed By: #### 4 [id number] #### [facility] [address] [place] [address] Dr. Phill Og Performed by: Comment Normal [facility] Comment on above: Result Comment: Adele Lozano, Steffen House Supervisor (ASCP) Performed By: #### 4 [id number] #### [facility] [address] [place] [address] Dr. Phill Og Reflex Criteria: Comment Normal [facility] Comment on above: Result Comment: The HPV DNA reflex criteria were not met with this specimen result therefore, no HPV testing was performed. . Performed By: #### 4 [id number] #### [facility] [address] [place] [address] Dr. Phill Og Specimen adequacy: Comment Normal [facility] Comment on above: Result Comment: Sati sfactory for evaluation. Endocervical and/or squamous metaplastic cells (endocervical component) are present. Performed By: #### 4 [id number] #### [facility] [address] [place] [address] Dr. Phill Og Thyroglobulin Antibodyon TG AB < 1.0 Normal 0.0-0.9 [facility] Comment on above: Result Comment: Thyr oglobulin Antibody measured by [employer] Methodology Performed By: #### L 3300.6900, [id number] #### [facility] [address] [place], [address] Thyroid Peroxidase ABon 03-31 THYR PEROX AB < 8 Normal 0-34 [facility] Comment on above: Result Comment: Perf ormed at: CB - [facility] [id number] [place], [place] [id number] Etl Manager: Jose Dave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 Comment on above: Ordering Provider: Elli TONG 42835 Chloride [Moles/Vol] 106 mmol/L 98 - 107 [facility] [employer] Work Phone: [phone] Comment on above: Ordering Provider: Elli TONG 33221 CO2 [Moles/Vol] 24 mmol/L 21 - 32 [facility] [employer] Work Phone: [phone] Comment on above: Ordering Provider: Elli TONG 07588 Creatinine [Mass/Vol] 0.72 mg/dL See Below [facility] [employer] Work Phone: [phone] Comment on above: Reference Range: 0.5 0 - 1.05 Ordering Provider: Elli TONG 83257 Glucose [Mass/Vol] 109 mg/dL above high threshold 74 - 99 [facility] [employer] Work Phone: [phone] Comment on above: Ordering Provider: Elli TONG 88975 Potassium [Moles/Vol] 3.5 mmol/L 3.5 - 5.3 [facility] [employer] Work Phone: [phone] Comment on above: Ordering Provider: Elli TONG 68810 Protein [Mass/Vol] 6.5 g/dL 6.4 - 8.2 [facility] [employer] Work Phone: [phone] Comment on above: Ordering Provider: Elli TONG 20839 Sodium [Moles/Vol] 137 mmol/L 136 - 145 [facility] [employer] Work Phone: Comment on above: Ordering Provider: Elli TONG 80564 Urea nitrogen [Mass/Vol] 10 mg/dL 6 - 23 [facility] [employer] Work Phone: Comment on above: Ordering Provider: Elli TONG 58093 Otheron 01-16-2020 22 1 [facility] [employer] Work Phone: Comment on above: Ordering Provider: Elli Tong 24046 423 1 [place] [facility] Work Phone: [phone] Comment on above: Ordering Provider: Elli Tong 74159 60 1 [place] [facility] Work Phone: [phone] Comment on above: Ordering Provider: Elli Tong 67160 54 1 [place] [facility] Work Phone: [phone] Comment on above: Ordering Provider: Elli Tong [address]450 Please see physicia n note for formal interpretation confirmed by Scribe [employer] Work Phone: [phone] Comment on above: Ordering Provider: Elli Tong 79163 135 1 [employer] Phone: [phone] Comment on above: Ordering Provider: Elli Tong 62424 148 1 [employer] Phone: [phone] Comment on above: Ordering Provider: Elli Tong 28289 80 1 [employer] Work Phone: [phone] Comment on above: Ordering Provider: Elli Tong 05467 151 1 [employer] Phone: [phone] Comment on above: Ordering Provider: Elli Tong 10019 204 1 [employer] Phone: [phone] Comment on above: Ordering Provider: Elli Tong 37752 366 1 [employer] Phone: [phone] Comment on above: Ordering Provider: Elli Tong 21613 8 1 [employer] Work Phone: [phone] Comment on above: Ordering Provider: Elli Tong 66840 282 1 [employer] Work Phone: [phone] Comment on above: Ordering Provider: Elli Tong 14158 369 1 [employer] Phone: [phone] Comment on above: Ordering Provider: Elli Tong 00871 225 1 [employer] Work Phone: [phone] Comment on above: Ordering Provider: Elil Tong 93914 [email or web address] [facility] [facility] [employer] Work Phone: Comment on above: Ordering Provider: Elli Tong 81603 Interpreted by: UMU MARTINEZ01/16/20 13:24STUDY:Chest Radiograph; 01/16/20 [...] signed by: UMU MARTINEZ 01/16/20 13:24 Normal [employer] Work Phone: Comment on above: Ordering Provider: Elli TONG [phone] [employer] Phone: Comment on above: Ordering Provider: Elli Tong [phone] [employer] Phone: Comment on above: Ordering Provider: Elli Tong [phone] [employer] Work Phone: Comment on above: Ordering Provider: Elli Tong 78524 [phone] [employer] Phone: Comment on above: Ordering Provider: Elli Tong 36184 [phone] 1 [employer] Work Phone: Comment on above: Ordering Provider: Elli Tong [phone] [employer] Phone: Comment on above: Ordering Provider: Elli Tong 75604 Please see physicia n note for formal interpretation confirmed by Scribe [employer] Work Phone: Comment on above: Ordering Provider: Elli Tong [phone] [phone] 1 [place] [facility] Work Phone: [phone] Comment on above: Ordering Provider: Elli Tong [phone] [phone] 1 [place] [facility] Work Phone: [phone] Comment on above: Ordering Provider: Elli Tong [phone] [place] [facility] Work Phone: [phone] Comment on above: Ordering Provider: Elli Whaley 334 1 [place] [facility] Work Phone: [phone] Comment on above: Ordering Provider: Elli Osman445 [phone] 1 [place] [facility] Work Phone: [phone] Comment on above: Ordering Provider: Elli Tong 39488 [phone] 1 [place] [facility] Phone: [phone] Comment on above: Ordering Provider: Elli Tong [phone] [employer] Work Phone: [phone] Comment on above: Ordering Provider: Elli Tong [phone] 1 [place] [facility] Phone: [phone] Comment on above: Ordering Provider: Elli Tong 62473 [email or web address] [facility] Work Phone: [phone] Comment on above: Ordering Provider: Elli Tong 29622 Albumin BCP dye [Mass/Vol] 4.1 g/dL 3.4 - 5.0 [facility] [employer] Phone: Comment on above: Ordering Provider: Elli TONG 44111 ALT With P-5'-P [Catalytic activity/Vol] 11 U/L 7 - 45 [employer] Phone: Comment on above: Patients treated wit h Sulfasalazine may generate falsely decreased results for ALT. Ordering Provider: Elli TONG 48423 AST With P-5'-P [Catalytic activity/Vol] 10 U/L 9 - 39 [facility] Work Phone: Comment on above: Ordering Provider: Elli TONG 18819 >60 >60 [facility] Work Phone: Comment on above: Ordering Provider: Elli FLORENCEDINORAH TONG 97623 CALCULATIONS OF KANIKA MATED GFR ARE PERFORMED [...] made to minimize errors. Minor errors in machine tech may be present. Please call if questions.. [...] a day SIGNIFICANT EVENTS: No documented data. SOFTWARE LICENSING SPECIALIST: Is : no(1) Is : no(1) CLINICAL [...] Referenced From Triage - ED 16-Jan-2020 11:57 [facility] Screen - Adult Emergenc yon 01-16-2020 Risk [...] Preferencesverbal instruction; video Cultural Considerationsnone Developmental Considerationsnone Jewish Considerationsnone Learning Assessment (Other Learner): Learning Assessment (Other Learner): Other learner availableno Pressure Injury/TB/Substance: Pressure Injury: Do you have a coughno Substance Use Current or Former HistoryYES: Cigarette/Tobacco, Alcohol Smoking Statusformer smoker Alcohol Useoccasionally Admission Risk Screen: Significant IndicatorsComplete CAGE: CAGE: Is this an injured patient at a Trauma Center ([facility]/[place]): no Electronic Signatures: Zoya Small (RN) (Signed 16-Jan-2020 12:18) Authored: Preferred Language, Advanced Directives, Family Violence Adult, Learning Assessment (Patient), Learning Assessment (Other Learner), Pressure Injury/TB/Substance, CAGE Last Updated: 16-Jan-2020 12:18 by Zoya Small (MARTI) [facility] Triage - EDon 01-16-2020 Triage - [...] BMI (kg/m2): 25.020 Calculated BSA (m2) 1.77 [place] Coma Scale: Best Eye Response: (E4) spontaneous Best Motor Response: (M6) obeys commands Best Verbal Response: (V5) oriented Melrude Score: 15 Allergies: no Last menstrual period: [...] Accompanied By: self Language: Spoken Language Preferred: Tristanian Reading Language Preferred: Tristanian Present on Arrival: Device Present on Arrival [...] 16-Jan-2020 12:17 by Zoya Small (MARTI) Normal [facility] UA MICROSCOPICon 01-16-2020 BACTERIA 1+ /HPF Abnormal [facility] Comment on above: Performed By: #### U AMIC #### [place] [address] MUCUS 3+ /LPF Normal [facility] Comment on above: Performed By: #### U AMIC #### [place] [address] RBC 3 /HPF Normal 0-5 [facility] Comment on above: Performed By: #### U AMIC #### [place] [address] SQUAMOUS EPITH. CELLS 4 /HPF Normal [facility] Comment on above: Performed By: #### U AMIC #### [place] [address] WBC 7 /HPF Abnormal 0-5 [facility] Comment on above: Performed By: #### U AMIC #### [address] [address] URINALYSISon 01-16-2020 Appearance (U) HAZY Normal CLEAR [facility] Comment on above: Performed By: #### U A #### [address] [address] Bilirubin (U) [Mass/Vol] Negative Normal NEGATIVE [facility] Comment on above: Performed By: #### U A #### [address] [address] BLOOD Negative Normal NEGATIVE [facility] Comment on above: Performed By: #### U A #### [address] [address] Color (U) Yellow Normal STRAW,YELLOW [facility] Comment on above: Performed By: #### U A #### [address] [address] Glucose [Mass/Vol] Negative Normal NEGATIVE [facility] Comment on above: Performed By: #### U A #### [address] [address] Ketones Ql (U) Negative Normal NEGATIVE [facility] Comment on above: Performed By: #### U A #### [place] [id number] Leukocyte esterase Test strip Ql (U) Negative Normal NEGATIVE [facility] Comment on above: Performed By: #### U A #### [place] [address] Nitrite Ql (U) Positive Normal NEGATIVE [facility] Comment on above: Performed By: #### U A #### [address] [address] pH (Bld) 5.0 Normal 5.0 - 8.0 [facility] Comment on above: Performed By: #### U A #### [address] [address] Protein (U) [Mass/Vol] Negative Normal NEGATIVE [facility] Comment on above: Performed By: #### U A #### [place] 3882405 Specific gravity (U) [Rel density] 1.019 Normal 1.005 - 1.035 [facility] Comment on above: Performed By: #### U A #### [address] [address] Urobilinogen Qn (U) <2.0 Normal 0.0 - 1.9 [facility] Comment on above: Performed By: #### U A #### [address] [address] Urinalysison 01-16-2020 Appearance (U) HAZY CLEAR [facility] Work Phone: Comment on above: Ordering Provider: Elli TONG 93485 Color (U) Yellow See Below [facility] Work Phone: Comment on above: Reference Range: STR AW,YELLOW Ordering Provider: Elli TONG 26807 Glucose Ql (U) Negative NEGATIVE [facility] Work Phone: Comment on above: Ordering Provider: Elli Whaley Ketones Ql (U) Negative NEGATIVE [facility] Work Phone: Comment on above: Ordering Provider: Elli TONG 67598 Leukocyte esterase Test strip Ql (U) Negative NEGATIVE [facility] Comment on above: Ordering Provider: Elli TONG [address] pH (U) 5.0 [pH] 5.0 - 8.0 [facility] Work Phone: Comment on above: Ordering Provider: Elli TONG 16125 Protein (U) [Mass/Vol] Negative NEGATIVE [facility] Work Phone: Comment on above: Ordering Provider: Elli TONG 82[address] RBC (U) [#/Vol] Negative NEGATIVE [facility] Work Phone: Comment on above: Ordering Provider: Elli TONG 45258 Specific gravity (U) [Rel density] 1.019 1 See Below [facility] Work Phone: Comment on above: Reference Range: 1.0 05 - 1.035 Ordering Provider: Elli Osman445 Urinalysis Positive NEGATIVE [place] [facility] Phone: Comment on above: Ordering Provider: Elli Whaley Urinalysis <2.0 0.0 - 1.9 [place] [place] [facility] Phone: Comment on above: Ordering Provider: Elli Whaley Urinalysis Negative NEGATIVE [place] [facility] Work Phone: Comment on above: Ordering Provider: Elli Whaley Urinalysis, Microscopicon Bacteria LM.HPF (Urine sed) [#/Area] 1+ Abnormal [facility] Work Phone: Comment on above: Ordering Provider: Elli Whaley Urinalysis, Microscopic 3+ [employer] Phone: Comment on above: Ordering Provider: Elli Whaley Urinalysis, Microscopic 4 {/HPF} [place] [facility] Work Phone: Comment on above: Ordering Provider: Elli Whaley Urinalysis, Microscopic 3 {/HPF} 0-5 [place] [facility] Phone: Comment on above: Ordering Provider: Elli Whaley Urinalysis, Microscopic 7 {/HPF} Abnormal 0-5 [place] [place] [facility] Phone: Comment on above: Ordering Provider: Elli Whaley Primary Care Visit (Text/For ms)on 07-20-2019 Primary Care Visit (Text/Forms) Diagnoses/Problems Assessed Gastroesophageal reflux disease without esophagitis (530.81) (K21.9) IBS (irritable bowel syndrome) (564.1) (K58.9) Abdominal pain (789.00) (R10.9) Anxiety, generalized (300.02) (F41.1) Orders Abdominal pain IO UA (automated w/o microscopy); Status:Resulted - Requires Verification,Retrospec tive By Protocol Authorization; Done: [id number] 03:15PM Anxiety, generalized Start: buPROPion HCl ER [...] doc last year and ECG. Dr in [facility] - will need old records. Dr bhavya Lewis [phone]. zantac did not help. IBS - cramping [...] Known Drug Allergies Vitals Vital Signs Recorded: [id number] 03:02PM Heart Rate: 97 Systolic: 110 Diastolic: [...] No murmur, No gallop. Integumentary: Warm, Dry, [place], Intact. Psychiatric: Cooperative, Appropriate mood AND affect, [...] No murmur, No gallop. Integumentary: Warm, Dry, [place], Intact. multiple rasied lesions both hands c/w [...] MD Transcribed by: AMI Technologist: SERGE Gao [facility] US Breast Unilateral Rt Comp leteon [...] Escobedo MD Transcribed by: AMI Technologist: SERGE [facility] Coding Summary.on 05-10-2018 Coding Summary. CODING DATE: 05/10/2018 FINAL [facility] STATUS: Home (Routine DC) PAYOR: Jamil MICHELLE [...] Lemon CphT Date Saved: 05/10/2018 08:56 am [facility] C Urineon 05-05-2018 Bacteria identified Cx [...] Locations R1: This test was performed at: [facility], [address] [place] [address], [address] , [facility] Comment on above: Performed By: #### 1 [id number], [id number] ####[place] [address] [place] [address] Coding Summary.on 05-04-2018 Coding Summary. CODING DATE: [...] Campos Date Saved: 05/04/2018 10:10 am Normal [facility] Coding Summary. CODING DATE: 05/04/2018 FINAL [facility] STATUS: Home (Routine DC) PAYOR: Jamil [...] [place] Date Saved: 05/04/2018 10:10 am Normal [facility] Auto Diffon 05-03-2018 Basophils #/vol (Bld) 0.4 % Normal 0.0-2.0 [facility] Comment on above: Order Comment: Order Added by Discern Expert. Performed By: #### 2 767492, 5411759, 2608059, 4159906, 3009256, 56632598, 89372855 ####[facility] [address] [place] [address] Basophils/Leukocytes Auto Pure number fraction (Bld) 0.1 E9/L Normal 0.0-0.2 [facility] Comment on above: Order Comment: Order Added by Discern Expert. Performed By: #### 2 387150, 6436044, 7005946, 5023688, 6396771, 40898505, 84784915 ####[place] [address] [place] [address] Eosinophils/100 WBC (Bld) 0.8 % Normal 0.0-8.0 [facility] Comment on above: Order Comment: Order Added by Discern Expert. Performed By: #### 2 472685, 1948533, 6993486, 0216845, 2237374, 77368809, 59999148 ####[place] [address] [place] [address] Eosinophils/Leukocyt es Auto Pure number fraction (Bld) 0.1 E9/L Normal 0.0-0.5 [facility] Comment on above: Order Comment: Order Added by Discern Expert. Performed By: #### 2 901963, 1195869, 3679390, 1659242, 4837758, 33998644, 41840085 ####[address] [address] Lymphocytes/100 WBC (Bld) 23.2 % Normal 14.0-50.0 [facility] Comment on above: Order Comment: Order Added by Discern Expert. Performed By: #### 2 472528, 6922496, 1850585, 4220983, 2139286, 50870555, 54886630 ####[place] [address] [place] [address] Lymphocytes/Leukocyt es Auto Pure number fraction (Bld) 3.8 E9/L Normal 1.0-4.0 [facility] Comment on above: Order Comment: Order Added by Discern Expert. Performed By: #### 2 188093, 7106605, 2823339, 4341663, 9088615, 85330292, 36438474 ####[place] [address] [place] [address] Monocytes/100 WBC (Bld) 8.7 % Normal 4.0-14.0 [facility] Comment on above: Order Comment: Order Added by [place] Expert. Performed By: #### 2 216918, 7386554, 0572822, 9475676, 5919832, 87218857, 58509459 ####[facility] [address] [place] [address] Monocytes/Leukocytes Auto Pure number fraction (Bld) 1.4 E9/L High 0.2-1.0 [facility] Comment on above: Order Comment: Order Added by Discern Expert. Performed By: #### 2 937379, 6010584, 3150009, 7357627, 9321195, 34249928, 07989591 ####[place] [address] [place] [address] Neutrophils/100 WBC (Bld) 66.9 % Normal 36.0-75.0 [facility] Comment on above: Order Comment: Order Added by Discern Expert. Performed By: #### 2 249015, 5195177, 3686295, 9972383, 5818338, 67618372, 26393459 ####[place] [address] [place] [address] Neutrophils/Leukocyt es Auto Pure number fraction (Bld) 10.8 E9/L High 2.0-7.5 [facility] Comment on above: Order Comment: Order Added by Discern Expert. Performed By: #### 2 585962, 0056384, 8498144, 1643448, 8172531, 83893040, 50833354 ####[place] [address] [place] [address] B hCG Qualon 05-03-2018 HCG.beta subunit Qn Negative Normal [facility] Comment on above: Performed By: #### 2 606403, 2110866, 2326723, 8975509, 2116044, 63668512, 25988369 ####[facility] [address] [place] [address] BMPon 05-03-2018 Creatinine mass conc 0.8 mg/dL Normal 0.5-1.3 [facility] Comment on above: Performed By: #### 2 099591, 4924774, 7837453, 2487901, 9903612, 57245996, 61070448 ####[facility] [address] [place] [address] Urea nitrogen mass conc 9 mg/dL Normal 5-21 [facility] Comment on above: Performed By: #### 2 620000, 8294526, 3387261, 2225668, 8206990, 02823940, 07813824 ####[facility] [address] [place] [address] Urea nitrogen/Creatinine mass ratio 11 No Units Normal 10-20 [facility] Comment on above: Performed By: #### 2 937944, 2263807, 7688298, 9502437, 7781373, 22668987, 38778517 ####[facility] [address] [place] [address] Anion gap molar conc 9 mmol/L Normal 6-16 [facility] Comment on above: Performed By: #### 2 364607, 4132964, 0231580, 8778701, 8513549, 20068378, 58269951 ####[facility] [address] [place] [address] Calcium mass conc 8.9 mg/dL Normal 8.9-11.1 [facility] Comment on above: Performed By: #### 2 217556, 1589872, 2113059, 2466939, 8582673, 29611670, 15050843 ####[facility] [address] [place] [address] Chloride molar conc 102 mmol/L Normal 101-111 [facility] Comment on above: Performed By: #### 2 529161, 6235071, 6120144, 6306293, 1766402, 59706463, 17076425 ####[facility] [address] [place] [address] CO2 molar conc 28 mmol/L Normal 21-31 [facility] Comment on above: Performed By: #### 2 679020, 4664018, 6776447, 6598687, 4243360, 55242858, 44196579 ####[facility] [address] [place] [address] Glucose mass conc 109 mg/dL Normal 55-199 [facility] Comment on above: Result Comment: If t his glucose result represents a fasting glucose, interpretation should refer to the following reference range: 55-99 mg/dL Performed By: #### 2 588856, 6510266, 8145090, 9013981, 9643950, 24681888, 85654892 ####[facility] [address] [place] [address] Potassium molar conc 2.9 mmol/L Low 3.5-5.3 [facility] Comment on above: Performed By: #### 2 829439, 9528286, 3822786, 3972196, 9049228, 14248421, 32949334 ####[facility] [address] [place] [address] Sodium molar conc 136 mmol/L Normal 135-145 [facility] Comment on above: Performed By: #### 2 838591, 6569494, 5847837, 2531361, 7643767, 40441616, 08886778 ####[facility] [address] [place] [address] CBC w/ Auto Diffon Erythrocyte distribution width Ratio (RBC) 13.4 % Normal 10.9-14.2 [facility] Comment on above: Performed By: #### 2 279678, 3827022, 4775570, 8710495, 0526578, 06706705, 29085886 ####[facility] [address] [place] [address] Hematocrit Volume Fraction (Bld) 41.1 % Normal 34.0-46.0 [facility] Comment on above: Performed By: #### 2 460243, 3172289, 3466906, 4530143, 7611244, 89661619, 43594695 ####[facility] [address] [place] [address] Hemoglobin mass conc (Bld) 13.9 g/dL Normal 12.0-16.0 [facility] Comment on above: Performed By: #### 2 933327, 1557472, 5886450, 7882447, 8034773, 17142997, 18576713 ####[facility] [address] [place] [address] MCH Entitic mass (RBC) 29.4 pg Normal 27.0-34.0 [facility] Comment on above: Performed By: #### 2 454771, 7005383, 2441139, 3594657, 3453863, 04718645, 11509166 ####[place] [address] [place] [address] MCHC mass conc (RBC) 33.7 g/dL Normal 31.4-39.3 [facility] Comment on above: Performed By: #### 2 982301, 6622223, 4632936, 2812200, 6882909, 81965852, 22795157 ####[address] [address] MCV Entitic volume (RBC) 87.2 fL Normal 80.0-100.0 [facility] Comment on above: Performed By: #### 2 812177, 6360263, 8664356, 7187610, 0674676, 94568400, 66715293 ####[place] [address] Platelet mean volume Entitic volume (Bld) 8.0 fL Normal 6.4-10.8 [facility] Comment on above: Performed By: #### 2 633633, 9095377, 6878198, 0230985, 1226678, 24846123, 12088677 ####[address] [address] Platelets #/vol (Bld) 270.0 E9/L Normal 150.0-500.0 [facility] Comment on above: Performed By: #### 2 531814, 2626689, 6169183, 9056649, 8584571, 97942146, 50889596 ####[address] [address] RBC #/vol (Bld) 4.7 E12/L Normal 4.3-5.9 [facility] Comment on above: Performed By: #### 2 041792, 9189328, 9041632, 2896436, 5809965, 20117994, 77818161 ####[facility] [address] [place] [address] WBC corrected for nucl RBC Auto #/vol (Bld) 16.1 E9/L High 4.0-11.0 [facility] Comment on above: Result Comment: Slid e reviewed by AC. Performed By: #### 2 281663, 8383673, 8691176, 2727750, 1883193, 49042714, 38839429 ####[facility] [address] [place] [address] ED Clinical Summaryon 2017 ED Clinical Summary [place] [id number] ED Clinical Summary Person Information Name: YAEL TALLEY Mandy Vela/[facility] Age: 18 Years : 2000 12:00 AM Sex: Female Language: Tristanian PCP: Jolynn VILLA MD Marital Status: Single [...] 05/03/2018 9:58 AM 05/03/2018 9:58 AM ADDRESS: [address] [place] [address] [address] [facility] [address] PHYS DOC NOTES: MEDICAL INFORMATION: Prescriptions Given: Prescription Display acetaminophen-hydrocod one (Second [place] 325 mg-5 mg oral tablet) 1 tab(s), [...] Refills(s) 1 PATIENT EDUCATION INFORMATION: Instructions: Cholelithiasis, Cdrk-rh-Vlpl; Pyelonephritis, Adult, Kvjv-fz-Fozc Follow up: With: Address: When: Jolynn VILLA [address] [place], [place] [address], [place] [address] Business (1) Within 3 to 5 days Comments: Call physician if symptoms worsen Return to ED if symptoms worsen DIAGNOSIS: 1:Rt flank pain; 2:Urinary tract infection; 3:Acute pyelonephritis Normal [facility] ED Note-Physicianon 05-03-20 ED Note-Physician Basic [...] 400 mg= 1 tab(s), Oral, q6hr, PRN Second [place] 325 mg-5 mg oral tablet, 1 tab(s), Oral, q6hr, PRN Zofran ODT 8 mg Tab-Dis, 8 mg= 1 tab(s), Oral, q8hr, PRN, 1 refills Follow-up With When Contact Information Jolynn VILLA Within 3 to 5 days [address] [facility] [address] [address] [place] [address]- Business (1) Additional Instructions: Call physician if symptoms worsen Return to ED if symptoms worsen Patient Education Cholelithiasis, Rsiw-sx-Sjtx Pyelonephritis, Adult, Iaeq-yr-Pbfx Problem List/Past Medical History Ongoing Smoker Historical [...] Lymph Auto: 23.2 % (05/03/18 06:07:00 EST) [place] Auto: 8.7 % (05/03/18 06:07:00 EST) Eos Auto: 0.8 % (05/03/18 06:07:00 EST) Basophil Auto: 0.4 % (05/03/18 06:07:00 EST) Neutro Absolute: 10.8 E9/L High (05/03/18 06:07:00 EST) Lymph Absolute: 3.8 E9/L (05/03/18 06:07:00 EST) [place] Absolute: 1.4 E9/L High (05/03/18 06:07:00 EST) [...] Given? No Signed By: Judd Curtis MD [facility] Comment on above: Result Comment: Elec [...] Lymph Auto: 23.2 % (05/03/18 06:07:00 EST) [place] Auto: 8.7 % (05/03/18 06:07:00 EST) Eos Auto: 0.8 % (05/03/18 06:07:00 EST) Basophil Auto: 0.4 % (05/03/18 06:07:00 EST) Neutro Absolute: 10.8 E9/L High (05/03/18 06:07:00 EST) Lymph Absolute: 3.8 E9/L (05/03/18 06:07:00 EST) [place] Absolute: 1.4 E9/L High (05/03/18 06:07:00 EST) [...] Diagnostic Results No qualifying data available. Normal [facility] Comment on above: Result Comment: Elec trodelally [...] Document Reviewed: 11/07/2013 ExitCare? Patient Information ?2015 [employer]. This information is not intended to replace [...] Document Reviewed: 11/03/2011 ExitCare? Patient Information ?2014 [employer]. This information is not intended to replace advice given to you by your health care provider. Make sure you discuss any questions you have with your health care provider. Normal [facility] ED Patient Summaryon 018 ED Patient Summary [place] [id number] Patient Discharge Instructions Person Information Name: YAEL TALLEY Age: 18 Years Arrival Date: 05/03/2018 5:43 AM Discharge Diagnosis: 1:Rt flank pain; 2:Urinary tract infection; 3:Acute pyelonephritis Primary Care Physician: Jolynn VILLA MD Provider Information Primary Provider: Janes Jovel MD Advanced Shoe Shanker:None The exam and treatment you received in the Emergency Department were for an urgent problem and are not intended as complete care. It is important that you follow up with a doctor, nurse practitioner, or physician?s special education teaching assistant for ongoing care. If your symptoms [...] Follow-up Instructions: With: Address: When: Jolynn VILLA [address] [place] [address] [address] [phone] Business (1) Within 3 to 5 days Comments: Call physician if symptoms worsen Return to ED if symptoms worsen In the event that this physician does not participate in your insurance network, please consult with your insurance company to find a nearby participating provider. Patient Education Materials: Cholelithiasis, Xkbj-ix-Wbvk; Pyelonephritis, Adult, Tsth-wf-Wyta A MESSAGE TO ALL PATIENTS REGARDING OPIOIDS PRESCRIPTION OPIOIDS: WHAT YOU NEED TO KNOW Prescription opioids can be used to help relieve ijrrgqgv-oo-ertpvy pain and are often prescribed following a [...] be struggling with addiction, tell your health daytime caregiver and ask for guidance or call [facility] National Helpline at 8-990-324-HCNH. e Source: [place] Department of Health and Human Services/Center for Disease Control & Prevention [facility] Medications Given: Medication Dose Route morphine 2.00 mg IV Push Right Antecubit Minter ondansetron 4.00 mg IV Push Right Antecubit Addy ceftriaxone 1.00 gram IV Piggyback Right Antecubit Minter Sodium Chloride 0.9% intravenous solution 1000.00 mL Initial Volume 1000.00 mL/hr IV Piggyback Right Antecubit Minter Medication Information: New Medications Printed Prescriptions acetaminophen-hydrocod one (Second [place] 325 mg-5 mg oral tablet) 1 Tabs [...] Information: Re Mustafa Thank you for choosing [facility] Patient Education Materials: Possible Cholelithiasis Follow-up with [...] Document Reviewed: 11/07/2013 ExitCare? Patient Information ?2015 [employer]. This information is not intended to replace [...] Document Reviewed: 11/03/2011 ExitCare? Patient Information ?2015 [employer]. This information is not intended to replace advice given to you by your health care provider. Make sure you discuss any questions you have with your health care provider. GERRI Soliz ALEXUS R , have received the following patient education materials/instructions and have verbalized understanding: Patient Education Materials: Cholelithiasis, Dmfz-yj-Tcsu; Pyelonephritis, Adult, Gsnn-ej-Zzmf Follow-up Instructions: With: Address: When: Jolynn VILLA [address] [place] [address] [address] [phone] Business (1) Within 3 to 5 days Comments: Call physician if symptoms worsen Return to ED if symptoms worsen Prescriptions: [acetaminophen-hydroco done (Second [place] 325 mg-5 mg oral tablet)] [ciprofloxacin (Cipro 500 mg Tab)] [ibuprofen (ibuprofen 400 mg Tab)] [ondansetron (Zofran ODT 8 mg Tab-Dis)] Patient Signature Date Clinician/Nurse Signature ___ Date 05/03/18 09:58:03 Normal [facility] Hep Func Panelon 05-03-2018 Albumin mass conc 4.3 g/dL Normal 3.3-5.0 [facility] Comment on above: Performed By: #### 2 162786, 6003936, 8668107, 4358522, 0435922, 82617925, 73659505 ####[facility] [address] [place] [address] Albumin mass conc 1.5 g/dL Normal 1.1-2.2 [facility] Comment on above: Performed By: #### 2 923414, 4904970, 2436342, 5074013, 9719677, 90658119, 41289597 ####[facility] [address] [place] [address] ALP enzyme act/vol 61 Int._Unit/L Normal 21-98 [facility] Comment on above: Performed By: #### 2 041718, 1694096, 8776343, 2028609, 0240798, 38148390, 66828621 ####[facility] [address] [place] [address] ALT No additional P-5'-P enzyme act/vol 11 Int._Unit/L Normal 6-46 [facility] Comment on above: Performed By: #### 2 562444, 2665568, 8586356, 4601478, 8518525, 55720561, 41604675 ####[facility] [address] [place] [address] AST enzyme act/vol 14 Int._Unit/L Normal 5-43 [facility] Comment on above: Performed By: #### 2 809877, 7246688, 8817040, 7467080, 8643618, 38941710, 80918535 ####[facility] [address] [place] [address] Bilirubin mass conc 1.1 mg/dL Normal 0.0-1.1 [facility] Comment on above: Performed By: #### 2 012312, 0668397, 7779181, 8357993, 3289704, 24599034, 84285125 ####[address] [place] [address] Bilirubin.direct mass conc 0.2 mg/dL Normal 0.1-0.4 [facility] Comment on above: Performed By: #### 2 240269, 4712500, 4405332, 3288175, 9554093, 89702646, 37154271 ####[address] [place] [address] Bilirubin.direct mass conc 0.9 mg/dL Normal 0.1-0.9 [facility] Comment on above: Performed By: #### 2 960480, 1325781, 8874811, 6991988, 6783486, 68676922, 76440875 ####[address] [place] [address] Globulin mass conc (S) 2.9 g/dL Normal 1.4-4.0 [facility] Comment on above: Performed By: #### 2 688248, 0980844, 4319792, 3303981, 0437754, 18706044, 73639797 ####[facility] [address] [place] [address] Protein mass conc 7.2 g/dL Normal 6.0-7.8 [facility] Comment on above: Performed By: #### 2 418271, 6381907, 6948518, 6215634, 3923298, 98247449, 92590101 ####[address] [place] [address] Lactic Acidon 05-03-2018 Lactate mass conc 7.2 mg/dL Normal 4.5-19.8 [facility] Comment on above: Performed By: #### 2 683441 ####[facility] [address] [place] [address] Lipase Levelon 05-03-2018 Lipase enzyme act/vol 22 unit/L Normal 13-58 [facility] Comment on above: Performed By: #### 2 122244, 6671971, 6149053, 8770920, 1506351, 89704148, 43434096 ####[facility] [address] [place] [address] UA With Cult Reflexon 2017 Bacteria LM Ql (Urine sed) 2+ /HPF Abnormal Trace [facility] Comment on above: Performed By: #### 1 4319215, 1808905 ####[address] [address] Bilirubin Ql (U) Negative Normal Negative [facility] Comment on above: Performed By: #### 1 8710370, 0583498 ####[address] [address] Clarity Nom (U) CLOUDY Abnormal Clear [facility] Comment on above: Performed By: #### 1 5487475, 6687705 ####[address] [address] Color Nom (U) YELLOW Normal Yellow [facility] Comment on above: Performed By: #### 1 4843894, 9496411 ####[address] [address] Epithelial cells.squamous LM.HPF #/area (Urine sed) /[HPF] Normal 0-2 [facility] Comment on above: Performed By: #### 1 1061862, 2851706 ####[address] [address] Glucose Test strip mass conc (U) Negative Normal Negative [facility] Comment on above: Performed By: #### 1 4749486, 1501855 ####[address] [address] Hemoglobin Ql (U) 2+ Abnormal Negative [facility] Comment on above: Performed By: #### 1 1752527, 0049224 ####[address] [address] Ketones mass conc (U) Negative Normal Negative [facility] Comment on above: Performed By: #### 1 3082603, 7789151 ####[address] [address] [place].plasma/Lithi um.RBC mass ratio (Bld) 4-20 Normal 0-3 [facility] Comment on above: Performed By: #### 1 6905952, 2803511 ####[address] [address] Nitrite Ql (U) Positive Abnormal Negative [facility] Comment on above: Performed By: #### 1 4198315, 9134439 ####[place] [address] pH (U) 6.0 [pH] 5.0-9.0 [facility] Comment on above: Performed By: #### 1 2489662, 2531792 ####[address] [address] Protein mass conc (U) 1+ Abnormal Negative [facility] Comment on above: Performed By: #### 1 9806653, 3325369 ####[place] [address]857 Specific gravity Relative Density (U) 1.025 1.005-1.030 [facility] Comment on above: Performed By: #### 1 6930017, 5517818 ####[address] [address] UA Spec Desc Clean Catch Normal [facility] Comment on above: Performed By: #### 1 1621516, 8143592 ####[address] [address] Urobilinogen Qn (U) 0.2 {Carlos'U}/dL Normal 0.0-1.0 [facility] Comment on above: Performed By: #### 1 7164260, 8651999 ####[facility] [address] [place] [address] WBC Auto Ql (U) 2+ Abnormal Negative [facility] Comment on above: Performed By: #### 1 2880895, 9924370 ####[facility] [address] [place] [address] WBC LM.HPF #/area (Urine sed) /[HPF] Abnormal 0-5 [facility] Comment on above: Performed By: #### 1 2339997, 0615114 ####[facility] [address] [place] [address] eGFRon 05-03-2018 GFR/1.73 sq M predicted among blacks MDRD vol rate/area (S/P/Bld) mL/min/{1.73_m2} Normal >=59 [facility] Comment on above: Order Comment: Order added by Discern Expert. Result Comment: eGFR is race adjusted. AA=. Performed By: #### 2 429808, 3294957, 2533819, 0869551, 5857479, 93739985, 94790812 ####[facility] [address] [place] [address] GFR/1.73 sq M predicted among non-blacks MDRD vol rate/area (S/P/Bld) mL/min/{1.73_m2} Normal >=59 [facility] Comment on above: Order Comment: Order added by Discern Expert. Result Comment: Greige [employer] Marker del kidney disease could be indicated at eGFR's of less than 60 mL/min/1.73m2. Kidney failure is indicated at less than 15 mL/min/1.73m2. Performed By: #### 2 504182, 7205702, 0273605, 8053864, 2391336, 22856598, 62647450 ####[facility] [address] [place] [address] Coding Summary.on 03-13-2018 Coding Summary. CODING DATE: 03/13/2018 FINAL [facility] STATUS: Home (Routine DC) PAYOR: Jamil APC [...] Campos Date Saved: 03/13/2018 01:48 pm Normal [facility] Auto Diffon 03-10-2018 Basophils #/vol (Bld) 0.8 % Normal 0.0-2.0 [facility] Comment on above: Order Comment: Order Added by Discern Expert. Performed By: #### 2 161566, 3023252, 5342765, 2162923, 14591405, 5339464, 46173889 ####[facility] [address] [place] [address] Basophils/Leukocytes Auto Pure number fraction (Bld) 0.1 E9/L Normal 0.0-0.2 [facility] Comment on above: Order Comment: Order Added by Discern Expert. Performed By: #### 2 875235, 8275226, 4017682, 6549824, 39284996, 0894726, 46522808 ####[facility] [address] [place] [address] Eosinophils/100 WBC (Bld) 1.5 % Normal 0.0-8.0 [facility] Comment on above: Order Comment: Order Added by Discern Expert. Performed By: #### 2 260225, 6051536, 8910752, 8648992, 40474775, 3873374, 73655738 ####[facility] [address] [place] [address] Eosinophils/Leukocyt es Auto Pure number fraction (Bld) 0.1 E9/L Normal 0.0-0.5 [facility] Comment on above: Order Comment: Order Added by Discern Expert. Performed By: #### 2 237478, 8633057, 1088771, 9715969, 95309542, 3384484, 84723776 ####[facility] [address] [place] [address] Lymphocytes/100 WBC (Bld) 26.8 % Normal 14.0-50.0 [facility] Comment on above: Order Comment: Order Added by [employer] Expert. Performed By: #### 2 805942, 9780581, 5884077, 6146341, 26826628, 0713946, 21136815 ####[facility] [address] [place] [address] Lymphocytes/Leukocyt es Auto Pure number fraction (Bld) 2.0 E9/L Normal 1.0-4.0 [facility] Comment on above: Order Comment: Order Added by [employer] Expert. Performed By: #### 2 423976, 4980964, 9097506, 5282952, 61634452, 5498624, 07366268 ####[address] [place] [address] Monocytes/100 WBC (Bld) 8.4 % Normal 4.0-14.0 [facility] Comment on above: Order Comment: Order Added by [employer] Expert. Performed By: #### 2 418060, 1776049, 1344473, 5360632, 57527486, 6707941, 78901590 ####[address] [place] [address] Monocytes/Leukocytes Auto Pure number fraction (Bld) 0.6 E9/L Normal 0.2-1.0 [facility] Comment on above: Order Comment: Order Added by [employer] Expert. Performed By: #### 2 603387, 8874603, 2594696, 7361535, 62904843, 1993771, 71192215 ####[facility] [address] [place] [address] Neutrophils/100 WBC (Bld) 62.5 % Normal 36.0-75.0 [facility] Comment on above: Order Comment: Order Added by [employer] Expert. Performed By: #### 2 466650, 7937538, 6445951, 7649425, 09221946, 4869956, 49988466 ####[facility] [address] [place] [address] Neutrophils/Leukocyt es Auto Pure number fraction (Bld) 4.8 E9/L Normal 2.0-7.5 [facility] Comment on above: Order Comment: Order Added by Discern Expert. Performed By: #### 2 224339, 5482829, 7543969, 3854794, 87994633, 7668583, 53293012 ####[facility] [address] [place] [address] B hCG Qualon 03-10-2018 HCG.beta subunit Qn Negative Normal [facility] Comment on above: Performed By: #### 2 740098, 2906415, 4968087, 2626555, 92957670, 4982297, 86798183 ####[facility] [address] [place] [address] BMPon 03-10-2018 Creatinine mass conc 0.7 mg/dL Normal 0.5-1.3 [facility] Comment on above: Performed By: #### 2 863819, 5837801, 2649107, 9246975, 73342062, 7492889, 54576988 ####[facility] [address] [place] [address] Urea nitrogen mass conc 13 mg/dL Normal 5- [facility] Comment on above: Performed By: #### 2 043387, 2917997, 8185845, 3156082, 68821256, 2032031, 20750416 ####[facility] [address] [place] [address] Urea nitrogen/Creatinine mass ratio 19 No Units Normal 10- [facility] Comment on above: Performed By: #### 2 353640, 1641513, 9537699, 2910469, 26384693, 0679671, 94523179 ####[facility] [address] [place] [address] Anion gap molar conc 11 mmol/L Normal 6-16 [facility] Comment on above: Performed By: #### 2 507883, 8621277, 4181333, 3866868, 36337829, 5389184, 99891121 ####[facility] [address] [place] [address] Calcium mass conc 8.9 mg/dL Normal 8.9-11.1 [facility] Comment on above: Performed By: #### 2 397822, 3086683, 3009095, 4337510, 94305923, 7705741, 41608640 ####[facility] [address] [place] [address] Chloride molar conc 107 mmol/L Normal 101-111 [facility] Comment on above: Performed By: #### 2 802592, 8623926, 6494287, 2354618, 53801619, 5032865, 29046987 ####[facility] [address] [place] [address] CO2 molar conc 23 mmol/L Normal 21-31 [facility] Comment on above: Performed By: #### 2 939353, 5012270, 1811246, 2986406, 79674959, 9784717, 52228039 ####[facility] [address] [place] [address] Glucose mass conc 99 mg/dL Normal 55-199 [facility] Comment on above: Result Comment: If t his glucose result represents a fasting glucose, interpretation should refer to the following reference range: 55-99 mg/dL Performed By: #### 2 107390, 8304041, 4532163, 2304110, 77702852, 7844852, 95066794 ####[facility] [address] [place] [address] Potassium molar conc 3.9 mmol/L Normal 3.5-5.3 [facility] Comment on above: Performed By: #### 2 720918, 9350737, 7147169, 9792134, 68669978, 2086384, 37207021 ####[facility] [address] [place] [address] Sodium molar conc 137 mmol/L Normal 135-145 [facility] Comment on above: Performed By: #### 2 715561, 7120705, 5721918, 7502511, 29815208, 2580849, 54541932 ####[facility] [address] [place] [address] CBC w/ Auto Diffon Erythrocyte distribution width Ratio (RBC) 13.4 % Normal 10.9-14.2 [facility] Comment on above: Performed By: #### 2 963296, 8519316, 2516252, 9200358, 53656350, 2376704, 66029109 #### [facility] [address] [place] [address] Hematocrit Volume Fraction (Bld) 38.8 % Normal 34.0-46.0 [facility] Comment on above: Performed By: #### 2 736538, 5688846, 4158858, 0734880, 81677063, 5468985, 53472498 #### [facility] [address] [place] [address] Hemoglobin mass conc (Bld) 13.3 g/dL Normal 12.0-16.0 [facility] Comment on above: Performed By: #### 2 090088, 8405871, 9943557, 2841877, 67948390, 7287109, 82108690 #### [facility] [address] [place] [address] MCH Entitic mass (RBC) 29.5 pg Normal 27.0-34.0 [facility] Comment on above: Performed By: #### 2 794830, 2888560, 3766098, 4204515, 76710313, 0951798, 39511112 #### [facility] [address] [place] [address] MCHC mass conc (RBC) 34.2 g/dL Normal 31.4-39.3 [facility] Comment on above: Performed By: #### 2 947330, 3903189, 6741603, 7454204, 45628165, 0480829, 66539658 #### [facility] [address] [place] [address] MCV Entitic volume (RBC) 86.4 fL Normal 80.0-100.0 [facility] Comment on above: Performed By: #### 2 288372, 3530333, 2612616, 5578194, 71176194, 7718119, 45982339 #### [facility] [address] [place] [address] Platelet mean volume Entitic volume (Bld) 8.2 fL Normal 6.4-10.8 [facility] Comment on above: Performed By: #### 2 046473, 4621734, 5269994, 2711048, 75096245, 4425967, 85849743 #### [facility] [address] [place] [address] Platelets #/vol (Bld) 221.0 E9/L Normal 150.0-500.0 [facility] Comment on above: Performed By: #### 2 556437, 3978321, 5491245, 2666773, 90529170, 3475035, 83032988 #### [facility] [address] [place] [address] RBC #/vol (Bld) 4.5 E12/L Normal 4.3-5.9 [facility] Comment on above: Performed By: #### 2 081438, 6721903, 4974274, 2260808, 98098858, 3215398, 92099439 #### [facility] [address] [place] [address] WBC corrected for nucl RBC Auto #/vol (Bld) 7.6 E9/L Normal 4.0-11.0 [facility] Comment on above: Performed By: #### 2 692773, 8198891, 7966645, 6335535, 11479495, 0155388, 43220155 #### [facility] [address] [place] [address] ED Clinical Summaryon 2017 ED Clinical Summary [address] [address] ED Clinical Summary Person Information Name: YAEL TALLEY/Jian Age: 17 Years : 2000 12:00 AM Sex: Female Language: Tristanian PCP: Carlie Talley MD Marital Status: Single [...] 03/10/2018 1:26 PM 03/10/2018 1:26 PM ADDRESS: [address] [place] [address] [phone] PHYS DOC NOTES: MEDICAL INFORMATION: Prescriptions Given: Prescription Display omeprazole (omeprazole 40 mg Cap-DR) 40 mg = 1 cap(s), Oral, Daily, X 7 day(s), # 7 cap(s), Refills(s) 0 promethazine (promethazine 25 mg Tab) 25 mg = 1 tab(s), Oral, TID, # 15 tab(s), Refills(s) 0 PATIENT EDUCATION INFORMATION: Instructions: Abdominal Pain, Adult Follow up: With: Address: When: Carlie Talley [address] [place] [address], [place] [phone] [employer] ([employer] In 3 days 03/13/2018 DIAGNOSIS: Abdominal pain; Nausea & vomiting Normal [facility] ED Note-Physicianon 03-10-20 18 ED Note-Physician Basic [...] Talley In 3 days 03/13/2018 EDT [address] [phone] Business (1) Additional Instructions: Patient Education Abdominal Pain, Adult Attestation Patient seen and evaluated by the physician special education teaching assistant. Attending physician was present in the emergency department and supervised care. This report was transcribed using voice recognition software. Every effort was made to ensure accuracy, however, inadvertently computerized machine tech mistakes may be present. Problem List/Past Medical [...] Lymph Auto: 26.8 % (03/10/18 10:55:00 EDT) [place] Auto: 8.4 % (03/10/18 10:55:00 EDT) Eos Auto: 1.5 % (03/10/18 10:55:00 EDT) Basophil Auto: 0.8 % (03/10/18 10:55:00 EDT) Neutro Absolute: 4.8 E9/L (03/10/18 10:55:00 EDT) Lymph Absolute: 2 E9/L (03/10/18 10:55:00 EDT) [place] Absolute: 0.6 E9/L (03/10/18 10:55:00 EDT) Eos [...] right kidney. Signed By: Duke Joyce M.D. [facility] Comment on above: Result Comment: Elec [...] discomfort you are experiencing: ? Only take amql-olg-dcwoeuq or prescription medicines as directed by your [...] Document Reviewed: 01/23/2014 ExitCare? Patient Information ?2015 [employer]. This information is not intended to replace advice given to you by your health care provider. Make sure you discuss any questions you have with your health care provider. Normal [facility] ED Patient Summaryon 018 ED Patient Summary [address] [address] Patient Discharge Instructions Person Information Name: GERRIYAEL Age: 17 Years Arrival Date: 03/10/2018 10:30 AM Discharge Diagnosis: Abdominal pain; Nausea & vomiting Primary Care Physician: Carlie Talley MD Provider Information Primary Provider: Cookie Mahmood DO Advanced Shoe Shanker:Washington Maddox PA-C The exam and treatment you received in the Emergency Department were for an urgent problem and are not intended as complete care. It is important that you follow up with a doctor, nurse practitioner, or physician?s special education teaching assistant for ongoing care. If your symptoms [...] Follow-up Instructions: With: Address: When: Carlie Talley [address] [place] [address] Business (1) In 3 days 03/13/2018 In the event that this physician does not participate in your insurance network, please consult with your insurance company to find a nearby participating provider. Patient Education Materials: Abdominal Pain, Adult A MESSAGE TO ALL PATIENTS REGARDING OPIOIDS PRESCRIPTION OPIOIDS: WHAT YOU NEED TO KNOW Prescription opioids can be used to help relieve vqufodrs-qs-qnptaa pain and are often prescribed following a [...] be struggling with addiction, tell your health daytime caregiver and ask for guidance or call [facility]?S [employer] Helpline at 3-414-563-JKCM. p Source: [place] Department of Health and Human Services/Center for Disease Control & Prevention [facility] Medications Given: Medication Dose Route [...] Information: Re Mustafa Thank you for choosing [facility] Patient Education Materials: Abdominal Pain Many things [...] discomfort you are experiencing: ? Only take vusu-fsr-fafsyrj or prescription medicines as directed by your [...] Document Reviewed: 01/23/2014 ExitCare? Patient Information ?2015 [employer]. This information is not intended to replace advice given to you by your health care provider. Make sure you discuss any questions you have with your health care provider. GERRI Soliz ALEXUS R , have received the following patient education materials/instructions and have verbalized understanding: Patient Education Materials: Abdominal Pain, Adult Follow-up Instructions: With: Address: When: Carlie Talley [address] [place] [address] [place] [address] Business (1) In 3 days 03/13/2018 Prescriptions: [omeprazole (omeprazole 40 mg Cap-DR)] [promethazine (promethazine 25 mg Tab)] Patient Signature Date Clinician/Nurse Signature ___ Date 03/10/18 13:26:44 Normal [facility] Hep Func Panelon 03-10-2018 Bilirubin.direct mass conc UTC Abnormal 0.1-0.9 [facility] Comment on above: Result Comment: Resu lt verified by Discern Rule. Performed result UTC (Unable to Calculate) was sent as an Alpha code due the inability to calculate a valid numeric value. Performed By: #### 2 434484, 0037396, 7323243, 6382086, 18614715, 5996639, 06768160 ####[facility] [address] [place] [address] Albumin mass conc 1.4 g/dL Normal 1.1-2.2 [facility] Comment on above: Performed By: #### 2 217240, 9287645, 2208760, 1434933, 80766242, 0259664, 92617221 ####[facility] [address] [place] [address] Albumin mass conc 4.2 g/dL Normal 3.3-5.0 [facility] Comment on above: Performed By: #### 2 081842, 3982046, 9055478, 7802677, 13977032, 1229199, 46743828 ####[facility] [address] [place] [address] ALP enzyme act/vol 55 Int._Unit/L Normal 21-98 [facility] Comment on above: Performed By: #### 2 400152, 3182155, 6207903, 9648978, 66193403, 7107665, 04721984 ####[facility] [address] [place] [address] ALT No additional P-5'-P enzyme act/vol 16 Int._Unit/L Normal 6-46 [facility] Comment on above: Performed By: #### 2 879693, 7560819, 7856456, 1115469, 09738941, 8714287, 54659722 ####[facility] [address] [place] [address] AST enzyme act/vol 16 Int._Unit/L Normal 5-43 [facility] Comment on above: Performed By: #### 2 318826, 7470595, 1379254, 2001823, 18995029, 7920536, 24230851 ####[facility] [address] [place] [address] Bilirubin mass conc 0.8 mg/dL Normal 0.0-1.1 [facility] Comment on above: Performed By: #### 2 689961, 2150050, 2518586, 3392836, 41008296, 3451946, 20720653 ####[facility] [address] [place] [address] Bilirubin.direct mass conc mg/dL Normal 0.1-0.4 [facility] Comment on above: Performed By: #### 2 333751, 5523026, 9878017, 5681674, 86095793, 0455863, 97789929 ####[facility] [address] [place] [address] Globulin mass conc (S) 3.0 g/dL Normal 1.4-4.0 [facility] Comment on above: Performed By: #### 2 587382, 5315611, 5473429, 8074538, 27060651, [id number], [id number] ####[facility] [address] [place] [address] Protein mass conc 7.2 g/dL Normal 6.0-7.8 [facility] Comment on above: Performed By: #### 2 [id number], [id number], [id number], [id number], [id number], [id number], [id number] ####[facility] [address] [place] [address] Lipase Levelon 03-10-2018 Lipase enzyme act/vol 23 unit/L Normal 13-58 [facility] Comment on above: Performed By: #### 2 [id number], [id number], [id number], [id number], [id number], [id number], [id number] #### [facility] Laboratory [address] [place] [address] Progress Note-Nurseon 2017 Protein mass conc Pt A&OX4, RR even an d unlabored, skin w/d/i, NAD. Vitals stable. Discharge instruction given to patient with work/school note and scripts x2, verbalized understanding. Discharged home, ambulatory with steady gait, denied any other needs at this time. Normal [facility] US Gallbladderon 03-10-2018 US Gallbladder Exam [...] Joyce M.D. Transcribed by: dejan Technologist: REILLY aGo [facility] eGFRon 03-10-2018 GFR/1.73 sq M predicted among blacks MDRD vol rate/area (S/P/Bld) mL/min/{1.73_m2} Normal >=59 [facility] Comment on above: Order Comment: Order added by Discern Expert. Result Comment: eGFR is race adjusted. AA=. Performed By: #### 2 076354, 6973065, 7988629, 1907250, [id number], [id number], [id number] ####[facility] [address] [place] [address] GFR/1.73 sq M predicted among non-blacks MDRD vol rate/area (S/P/Bld) mL/min/{1.73_m2} Normal >=59 [facility] Comment on above: Order Comment: Order added by Discern Expert. Result Comment: Greige Goods Marker del kidney disease could be indicated at eGFR's of less than 60 mL/min/1.73m2. Kidney failure is indicated at less than 15 mL/min/1.73m2. Performed By: #### 2 135647, 2598321, 6923880, 4230113, 23768320, 2100879, [id number] ####[facility] [address] [place] [address] Coding Summary.on 03-09-2018 Coding Summary. CODING DATE: 03/09/2018 FINAL [facility] STATUS: Home (Routine DC) PAYOR: Golovin ADMIT DX: REASON FOR VISIT DX: R10.33 [...] Campos Date Saved: 03/09/2018 12:14 pm Normal [facility] ED Clinical Summaryon 2017 ED Clinical Summary [place] [id number] ED Clinical Summary Person Information Name: YAEL TALLEY/NewPhillip Age: 17 Years : 2000 12:00 AM Sex: Female Language: Tristanian PCP: NONE, XXXX Marital Status: Single Phone: [phone] Visit Id: Visit Reason: Back pain; R [...] 03/08/2018 3:40 PM 03/08/2018 3:40 PM ADDRESS: [address] [place] [address] [address] [facility] [phone] PHYS DOC NOTES: MEDICAL INFORMATION: Prescriptions Given: Prescription Display dicyclomine (dicyclomine 20 mg Tab) 20 mg = 1 tab(s), Oral, QID, X 7 day(s), # 28 tab(s), Refills(s) 0 ondansetron (Zofran ODT 4 mg Tab-Dis) 4 mg = 1 tab(s), Oral, q6hr, # 10 tab(s), Refills(s) 0 PATIENT EDUCATION INFORMATION: Instructions: Abdominal Pain, Adult Follow up: With: Address: When: Virgil Diggs [address] [place] [address], [place] [address] Business (0) In 3 days 03/11/2018 DIAGNOSIS: Abdominal pain Normal [facility] ED Note-Nursingon 03-08-2018 ED Note-Nursing Patient: LILLI TALLEY Age: 17 years Sex: Female : 2000 Associated Diagnoses: None Author: Macy Buenrostro RN Progress Note Relays that she is feeling a little bit better. NATHANIEL aware, awaiting plan of care. Normal [facility] ED Note-Nursing Patient: LILLI TALLEY Age: 17 years Sex: Female : 2000 Associated Diagnoses: None Author: Macy Buenrostro RN Progress Note 1500: Reports some nausea after previous med, PA aware, orders rec'd. Normal [facility] ED Note-Physicianon 03-08-20 ED Note-Physician Basic [...] the name of Dr. Diggs who is highway commissioner for family medicine and advised the pain [...] Diggs In 3 days 03/11/2018 EDT [address] [place] [address] [facility] (1) Additional Instructions: Patient Education Abdominal Pain, [...] The case was discussed with: the physician special education teaching assistant, Herberth Hale PA-C. Procedures: I directly [...] Diagnostic Results No qualifying data available. Normal [facility] Comment on above: Result Comment: Elec [...] discomfort you are experiencing: ? Only take zxzg-xpz-ixajivt or prescription medicines as directed by your [...] Document Reviewed: 01/23/2014 ExitCare? Patient Information ?2014 [employer]. This information is not intended to replace advice given to you by your health care provider. Make sure you discuss any questions you have with your health care provider. Normal [facility] ED Patient Summaryon 018 ED Patient Summary [address] [address] Patient Discharge Instructions Person Information Name: YAEL TALLEY Age: 17 Years Arrival Date: 03/08/2018 1:44 PM Discharge Diagnosis: Abdominal pain Primary Care Physician: NONE, XXXX Provider Information Primary Provider: Madhavi Scruggs, Parag Hernandez Advanced Shoe Shanker:Herberth Hale PA-C The exam and treatment you received in the Emergency Department were for an urgent problem and are not intended as complete care. It is important that you follow up with a doctor, nurse practitioner, or physician?s special education teaching assistant for ongoing care. If your symptoms [...] Follow-up Instructions: With: Address: When: Virgil Diggs [address] [place] [address], [facility] [place] [address] Business (1) In 3 days 03/11/2018 In the event that this physician does not participate in your insurance network, please consult with your insurance company to find a nearby participating provider. Patient Education Materials: Abdominal Pain, Adult A MESSAGE TO ALL PATIENTS REGARDING OPIOIDS PRESCRIPTION OPIOIDS: WHAT YOU NEED TO KNOW Prescription opioids can be used to help relieve vcxlqbqa-sn-thbtpc pain and are often prescribed following a [...] be struggling with addiction, tell your health daytime caregiver and ask for guidance or call [facility]?S National Helpline at 1-149-595-UYHN. j Source: US Department of Health and Human Services/Center for Disease Control & Prevention [facility] Medications Given: Medication Dose Route [...] Comment: Pharmacy Information: Thank you for choosing [facility] Patient Education Materials: Abdominal Pain Many things [...] discomfort you are experiencing: ? Only take ajcq-zys-ymonygd or prescription medicines as directed by your [...] Document Reviewed: 01/23/2014 ExitCare? Patient Information ?2014 [employer]. This information is not intended to replace advice given to you by your health care provider. Make sure you discuss any questions you have with your health care provider. GERRI Soliz ALEXUS R , have received the following patient education materials/instructions and have verbalized understanding: Patient Education Materials: Abdominal Pain, Adult Follow-up Instructions: With: Address: When: Virgil Diggs [address] [place] [address], [facility], [place] [address] [facility] (1) In 3 days 03/11/2018 Prescriptions: [dicyclomine (dicyclomine 20 mg Tab)] [ondansetron (Zofran ODT 4 mg Tab-Dis)] Patient Signature Date Clinician/Nurse Signature ___ Date 03/08/18 15:40:08 Normal [facility] UA With Cult Reflexon 2017 Bilirubin Ql (U) Negative Normal Negative [facility] Comment on above: Performed By: #### 1 [id number] #### [facility] [address] [place] [address] Clarity Nom (U) CLOUDY Abnormal Clear [facility] Comment on above: Performed By: #### 1 [id number] #### [facility] [address] [place] [address] Color Nom (U) YELLOW Normal Yellow [facility] Comment on above: Performed By: #### 1 [id number] #### [facility] [address] [place] [address] Crystals LM Ql (Urine sed) Present Normal [facility] Comment on above: Performed By: #### 1 [id number] #### [facility] [address] [place] [address] Epithelial cells.squamous LM.HPF #/area (Urine sed) 5-8 Normal 0-2 [facility] Comment on above: Performed By: #### 1 [id number] #### [facility] [address] [place] [address] Glucose Test strip mass conc (U) Negative Normal Negative [facility] Comment on above: Performed By: #### 1 [id number] #### [facility] [address] [place] [address] Hemoglobin Ql (U) Negative Normal Negative [facility] Comment on above: Performed By: #### 1 [id number] #### [facility] [address] [place] [address] Ketones mass conc (U) Negative Normal Negative [facility] Comment on above: Performed By: #### 1 [id number] #### [facility] [address] [place] [address] [place].plasma/Lithi um.RBC mass ratio (Bld) 0-3 Normal 0-3 [facility] Comment on above: Performed By: #### 1 [id number] #### [facility] [address] [place] [address] Mucus Ql (Urine sed) TRACE Normal [facility] Comment on above: Performed By: #### 1 [id number] #### [facility] [address] [place] [address] Nitrite Ql (U) Negative Normal Negative [facility] Comment on above: Performed By: #### 1 [id number] #### [facility] [address] [place] [address] pH (U) 7.0 [pH] 5.0-9.0 [facility] Comment on above: Performed By: #### 1 [id number] #### [facility] [address] [place] [address] Protein mass conc (U) Negative Normal Negative [facility] Comment on above: Performed By: #### 1 [id number] #### [facility] [address] [place] [address] Specific gravity Relative Density (U) 1.020 1.005-1.030 [facility] Comment on above: Performed By: #### 1 [id number] #### [facility] [address] [place] [address] UA Spec Desc Clean Catch Normal [facility] Comment on above: Performed By: #### 1 [id number] #### [facility] [address] [place] [address] Urobilinogen Qn (U) 0.2 {Carlos'U}/dL Normal 0.0-1.0 [facility] Comment on above: Performed By: #### 1 [id number] #### [facility] [address] [place] [address] WBC Auto Ql (U) Negative Normal Negative [facility] Comment on above: Performed By: #### 1 [id number] #### [facility] [address] [place] [address] WBC LM.HPF #/area (Urine sed) 0-5 Normal 0-5 [facility] Comment on above: Performed By: #### 1 [id number] #### [facility] [address] [place] [address] ED Noteon 08-01-2017 HIM IP Note OR Care Connector Normal [facility] ED Provider Noteon 8 HIM IP Note OR Care Connector Normal [facility] H Pylori Breath Teston 06-26 H Pylori Breath Test Negative Normal Negative [facility] Comment on above: Result Comment: (NOT [...] spiral organisms such as Helicobacter heilmanii.Performed by [employer],[address] [place] [id number] mbd.Bellstrike, Yan Pringle MD, Lab. DirectorPerformed at [facility] [address] [facility] [place] [address] ([phone]) Performed By: #### C DP, CP, LIP ####[facility] [facility] [place] [address]([phone] XR ABDOMEN LIMITED (KUB)on 0 06-24-2017 XR ABDOMEN LIMITED (KUB) KUB 2 filmsHISTORY: Calcium oxalate crystals in the urine. Right flank pain with percussion. Acute cystitis with hematuria, flank pain.No comparisonFINDINGS: Moderate stool throughout the colon with no renal ureteral or bladder calculi.IMPRESSION: Normal KUB.Interpreted by:MARYAN Flores Jr.igned by:Alex Gomez Jr., MD06/24/17inal result Normal [facility] Cult,Urineon 06-22-2017 Cult,Urine Specimen Description .URINE, MIDSTREAM Performed at [facility] [address] [place] [address] ([phone] Special Requests NOT REPORTEDCulture NO SIGNIFICANT GROWTH Performed at [address] [id number] [phone] Report Status FINAL 06/22/2017 Normal [facility] Comment on above: Performed By: #### U RC ####[place] [address] [place] [address] [facility] [facility] [place] [phone] CBC with Diffon 06-21-2017 Abs. Basophil 0.00 k/uL Normal 0.0-0.2 [facility] Comment on above: Result Comment: Perf ormed at [facility] [address] [facility] [place] [address] Performed By: #### C DP, CP, LIP ####[facility] [place] [address] Abs.Neutrophil (Seg) 13.50 k/uL High 2.5-7.0 [facility] Comment on above: Performed By: #### C DP, CP, LIP ####[place] [address] [place] [address] Auto Diff Performed YES Normal [facility] Comment on above: Performed By: #### C DP, CP, LIP ####[place] [address] [place] [address] Basophils/100 WBC Auto (Bld) 0 % Normal 0-2 [facility] Comment on above: Performed By: #### C DP, CP, LIP ####[place] [address] [place] [address] Eosinophils 0.20 10*3/uL Normal 0.0-0.4 [facility] Comment on above: Performed By: #### C DP, CP, LIP ####[place] [address] [place] [address] Eosinophils/100 leukocytes 1 % Normal 0-5 [facility] Comment on above: Performed By: #### C DP, CP, LIP ####[place] [address] [place] [address] Erythrocyte distribution width Auto Ratio (RBC) 13.7 % Normal 12.1-15.2 [facility] Comment on above: Performed By: #### C DP, CP, LIP ####[place] [address] [place] [address] Erythrocytes (RBC) 5.00 10*6/uL Normal 4.0-5.2 [facility] Comment on above: Performed By: #### C DP, CP, LIP ####[facility] [place] [address] Hematocrit (HCT) 42.4 % Normal 36-46 [facility] Comment on above: Performed By: #### C DP, CP, LIP ####[facility] [place] [address] Hemoglobin mass conc (Bld) 14.4 g/dL Normal 12.0-16.0 [facility] Comment on above: Performed By: #### C DP, CP, LIP ####[facility] [place] [address] Lymphocytes 1.40 10*3/uL Normal 1.2-5.2 [facility] Comment on above: Performed By: #### C DP, CP, LIP ####[facility] [place] [address] Lymphocytes/100 leukocytes 9 % Low 15-40 [facility] Comment on above: Performed By: #### C DP, CP, LIP ####[facility] [place] [address] MCH 28.7 pg Normal 25-35 [facility] Comment on above: Performed By: #### C DP, CP, LIP ####[facility] [place] [address] MCHC mass conc (RBC) 33.9 g/dL Normal 31-37 [facility] Comment on above: Performed By: #### C DP, CP, LIP ####[facility] [place] [address] MCV 84.8 fL Normal 78-102 [facility] Comment on above: Performed By: #### C DP, CP, LIP ####[facility] [place] [address] Monocytes 1.00 10*3/uL Normal 0.0-1.0 [facility] Comment on above: Performed By: #### C DP, CP, LIP ####[facility] [place] [address] Monocytes/100 leukocytes 6 % Normal 4-8 [facility] Comment on above: Performed By: #### C DP, CP, LIP ####[facility] [place] [address] Neutrophil (Seg) 84 % High 47-75 [facility] Comment on above: Performed By: #### C DP, CP, LIP ####[facility] [place] [address] Platelets 226 10*3/uL Normal 140-450 [facility] Comment on above: Performed By: #### C DP, CP, LIP ####[facility] [place] [address] WBC (Leukocytes) 16.1 10*3/uL High 4.5-13.5 [facility] Comment on above: Performed By: #### C DP, CP, LIP ####[facility] [facility] [place] [address] Erythrocyte morphology NOT REPORTED Normal [facility] Comment on above: Performed By: #### C DP, CP, LIP ####[facility] [place] [address] Erythrocytes (RBC) NOT REPORTED Normal [facility] Comment on above: Performed By: #### C DP, CP, LIP ####[facility] [place] [address] Granulocytes/100 WBC (Bld) NOT REPORTED Normal 0.00-0.30 [facility] Comment on above: Performed By: #### C DP, CP, LIP ####[facility] [place] [address] Immature granulocytes #/vol (Bld) NOT REPORTED Normal 0 [facility] Comment on above: Performed By: #### C DP, CP, LIP ####[facility] [place] [address] Platelet mean volume (PMV) NOT REPORTED Normal 6.0-12.0 [facility] Comment on above: Performed By: #### C DP, CP, LIP ####[facility] [place] [address] Platelets NOT REPORTED Normal [facility] Comment on above: Performed By: #### C DP, CP, LIP ####[facility] [place] [address] WBC Morphology NOT REPORTED Normal [facility] Comment on above: Performed By: #### C DP, CP, LIP ####[facility] [place] [address] Comp Metabolic Profon 2017 (cont.) Normal [facility] Comment on above: Result Comment: Aver age GFR for <20 years old not available.Chronic Kidney Disease: <60 mL/min/1.73sq mKidney failure: <15 mL/min/1.73sq meGFR calculated using average adult body mass. Additional eGFR calculator available at:http://www.[employer].Power[employer]One/multiple_crcl_2011.htmPerformed at [facility] [address] [place] [address] [phone] Performed By: #### C DP, CP, LIP ####[facility] [place] [address] Alanine aminotransferase (ALT) 12 U/L Normal 5-33 [facility] Comment on above: Performed By: #### C DP, CP, LIP ####[facility] [place] [address] Albumin 4.0 g/dL Normal 3.5-5.2 [facility] Comment on above: Performed By: #### C DP, CP, LIP ####[place] [address] [facility] [place] [address] Alkaline Phos 70 U/L Normal 35-104 [facility] Comment on above: Performed By: #### C DP, CP, LIP ####[place] [address] [facility] [place] [address] Anion gap 14 mmol/L Normal 8-16 [facility] Comment on above: Performed By: #### C DP, CP, LIP ####[place] [address] [facility] [address] Aspartate aminotransferase (AST) 10 U/L Normal <32 [facility] Comment on above: Performed By: #### C DP, CP, LIP ####[address] [place] [address] Bilirubin Ql (U) 0.62 mg/dL Normal 0.3-1.2 [facility] Comment on above: Performed By: #### C DP, CP, LIP ####[place] [address] [facility] [place] [address] BUN/CRE Ratio 16 Normal 9-20 [facility] Comment on above: Performed By: #### C DP, CP, LIP ####[place] [address] [facility] [place] [address] Calcium 9.0 mg/dL Normal 8.6-10.4 [facility] Comment on above: Performed By: #### C DP, CP, LIP ####[place] [address] [facility] [place] [address] Chloride 107 mmol/L Normal 98-107 [facility] Comment on above: Performed By: #### C DP, CP, LIP ####[place] [address] [facility] [place] [address] CO2 23 mmol/L Normal 20-31 [facility] Comment on above: Performed By: #### C DP, CP, LIP ####[facility] [facility] [place] [address] Creatinine 0.61 mg/dL Normal 0.50-0.90 [facility] Comment on above: Performed By: #### C DP, CP, LIP ####[facility] [facility] [place] [address] eGFR (non-black) Pediatric GFR requir es additional information. Refer to NKDEP website for Normal >60 [facility] Comment on above: Result Comment: calc ulator. Performed By: #### C DP, CP, LIP ####[facility] [facility] [place] [address] Glucose mass conc 105 mg/dL High 70-99 [facility] Comment on above: Performed By: #### C DP, CP, LIP ####[facility] [facility] [place] [address] Potassium molar conc 3.5 mmol/L Low 3.7-5.3 [facility] Comment on above: Performed By: #### C DP, CP, LIP ####[facility] [facility] [place] [address] Protein 6.5 g/dL Normal 6.4-8.3 [facility] Comment on above: Performed By: #### C DP, CP, LIP ####[facility] [facility] [place] [address] Sodium 144 mmol/L Normal 135-144 [facility] Comment on above: Performed By: #### C DP, CP, LIP ####[facility] [facility] [place] [address] Urea nitrogen 10 mg/dL Normal 6-20 [facility] Comment on above: Performed By: #### C DP, CP, LIP ####[facility] [facility] [address] Albumin/Globulin Ratio NOT REPORTED Normal 1.0-2.5 [facility] Comment on above: Performed By: #### C DP, CP, LIP ####[facility] [facility] [address](341) eGFR (non-black) NOT REPORTED Normal >60 [facility] Comment on above: Performed By: #### C DP, CP, LIP ####[facility] [facility] [address] Staging: NOT REPORTED Normal [facility] Comment on above: Performed By: #### C DP, CP, LIP ####[place] [address] [facility] [address]([phone] ED Noteon 06-21-2017 HIM IP Note OR Care Connector Normal [facility] ED Provider Noteon 8 HIM IP Note OR Care Connector Normal [facility] HCG, ,Urineon 06-21 HCG.beta subunit ( test) Ql (U) Negative Normal NEG [facility] Comment on above: Result Comment: Perf ormed at [facility] [address] [facility] [address] (954) Performed By: #### U HCG, UA, UMICAO ####[facility] [facility] [address](626) Lipaseon 06-21-2017 Lipase 22 U/L Normal 13-60 [facility] Comment on above: Result Comment: Perf ormed at [facility] [address] [facility] [address] ([phone]) Performed By: #### C DP, CP, LIP ####[facility] [facility] [place] [address](398) Urinalysis, Routineon 2017 Acetaminophen mass conc Negative Normal NEG [facility] Comment on above: Performed By: #### U HCG, UA, UMICAO ####[place] [address] [facility] [place] [address] Bilirubin (direct) Negative Normal NEG [facility] Comment on above: Performed By: #### U HCG, UA, UMICAO ####[place] [address] [facility] [place] [address] Comment Normal [facility] Comment on above: Result Comment: Perf ormed at [facility] [address] [facility] [place] [address] Performed By: #### U HCG, UA, UMICAO ####[place] [address] [facility] [place] [address] Hemoglobin mass conc (Bld) 2+ Abnormal NEG [facility] Comment on above: Performed By: #### U HCG, UA, UMICAO ####[address] [place] [address] Nitrite,Ur Negative Normal NEG [facility] Comment on above: Performed By: #### U HCG, UA, UMICAO ####[place] [address] [facility] [place] [address] Turbidity HAZY Abnormal CLEAR [facility] Comment on above: Performed By: #### U HCG, UA, UMICAO ####[place] [address] [facility] [place] [address] Urine, color YELLOW Normal YEL [facility] [facility] Comment on above: Performed By: #### U HCG, UA, UMICAO ####[place] [id number] [facility] [place] [address] Urine, glucose presence Negative Normal NEG [facility] Comment on above: Performed By: #### U HCG, UA, UMICAO ####[place] [address] [facility] [place] [address] Urine, leukocyte esterase presence 3+ Abnormal NEG [facility] Comment on above: Performed By: #### U HCG, UA, UMICAO ####[facility] [facility] [place] [address] Urine, pH 5.0 [pH] Normal 5.0-8.0 [facility] Comment on above: Performed By: #### U HCG, UA, UMICAO ####[place] [address] [facility] [place] [address] Urine, protein presence TRACE Abnormal NEG [facility] Comment on above: Performed By: #### U HCG, UA, UMICAO ####[place] [address] [facility] [place] [address] Urine, specific gravity 1.025 Normal 1.005-1.030 [facility] Comment on above: Performed By: #### U HCG, UA, UMICAO ####[place] [address] [facility] [place] [address] Urobilinogen,Ur Normal Normal NORM [facility] Comment on above: Performed By: #### U HCG, UA, UMICAO ####[place] [address] [facility] [place] [address] Urinalysis,Microon 8 ----- Normal [facility] Comment on above: Performed By: #### U HCG, UA, UMICAO ####[place] [address] [facility] [place] [address] Mucus Strands 2+ Abnormal NONE [facility] Comment on above: Result Comment: Perf ormed at [facility] [address] [address] Performed By: #### U HCG, UA, UMICAO ####[place] [address] [facility] [place] [address] Urine WBC's 20 TO 50 Normal 0 [facility] Comment on above: Performed By: #### U HCG, UA, UMICAO ####[facility] [facility] [place] [address] Urine, bacteria in sediment 2+ Abnormal NONE [facility] Comment on above: Performed By: #### U HCG, UA, UMICAO ####[facility] [facility] [place] [address] Urine, crystals in sediment 1+ /HPF Abnormal NONE [facility] Comment on above: Result Comment: CALC IUM OXALATE Performed By: #### U HCG, UA, UMICAO ####[place] [address] [facility] [place] [address] Urine, epithelial cells in sediment 2 TO 5 Normal [facility] Comment on above: Performed By: #### U HCG, UA, UMICAO ####[address] [place] [address] Urine, erythrocytes 0 TO 2 Normal 0-2 [facility] Comment on above: Performed By: #### U HCG, UA, UMICAO ####[place] [address] [facility] [place] [address] Epithelial, Renal NOT REPORTED Normal 0 [facility] Comment on above: Performed By: #### U HCG, UA, UMICAO ####[facility] [facility] [place] [address] Other Observations NOT REPORTED Normal NREQ [facility] Comment on above: Performed By: #### U HCG, UA, UMICAO ####[facility] [facility] [place] [address] Trichomonas NOT REPORTED Normal NONE [facility] Comment on above: Performed By: #### U HCG, UA, UMICAO ####[place] [address] [facility] [address], [place] [id number] Urine, amorphous sediment presence in sediment NOT REPORTED Normal NONE [facility] Comment on above: Performed By: #### U HCG, UA, UMICAO ####[facility] [facility] [place] [address] Urine, casts in sediment NOT REPORTED Normal [facility] Comment on above: Performed By: #### U HCG, UA, UMICAO ####[facility] [facility] [place] [address] Urine, yeast presence in sediment NOT REPORTED Normal NONE [facility] Comment on above: Performed By: #### U HCG, UA, UMICAO ####[facility] [facility], [place] [id number] Vital Signs Date Time Vital Sign Value Performing Clinician Facility 07-12-2024 14:26-0500 Body mass index (BMI) [Ratio] 33.95 kg/m2 Deshawn Rose DO Work Phone: [facility] 07-12-2024 14:26-0500 Body weight 89.72 kg Deshawn Rose DO Work Phone: [facility] 07-12-2024 14:26-0500 Diastolic blood pressure 70 mm[Hg] Deshawn Rose DO Work Phone: [facility] 07-12-2024 14:26-0500 Systolic blood pressure 110 mm[Hg] Deshawn Rose DO Work Phone: [facility] 05-18-2024 09:46-0500 Body mass index (BMI) [Ratio] 33.07 kg/m2 Tete Multani MD Work Phone: [facility] 05-18-2024 09:46-0500 Body weight 87.4 kg Tete Multani MD Work Phone: [facility] 05-18-2024 09:46-0500 Diastolic blood pressure 81 mm[Hg] Tete Multani MD Work Phone: [facility] 05-18-2024 09:46-0500 Systolic blood pressure 129 mm[Hg] Tete Multani MD Work Phone: [facility] 02-10-2024 08:32-0400 Body mass index (BMI) [Ratio] 31.9 kg/m2 Retadevin Sanford POULTRY BONER.CAREER DEVELOPMENT COORDINATOR Work Phone: [facility] 02-10-2024 08:32-0400 Body temperature 97.59 [degF] Reta Sanford POULTRY BONER.CAREER DEVELOPMENT COORDINATOR Work Phone: [facility] 02-10-2024 08:32-0400 Body weight 84.3 kg Reta Sanford P[employer]LTRY BONER.CAREER DEVELOPMENT COORDINATOR Work Phone: [facility] 02-10-2024 08:32-0400 Diastolic blood pressure 80 mm[Hg] Reta Sanford P[employer]LTRY BONER.CAREER DEVELOPMENT COORDINATOR Work Phone: [facility] 02-10-2024 08:32-0400 Heart rate 79 /min Reta Sanford P[employer]LTRY BONER.CAREER DEVELOPMENT COORDINATOR Work Phone: [facility] 02-10-2024 08:32-0400 Respiratory rate 18 /min Reta Sanford P[employer]LTRY BONER.CAREER DEVELOPMENT COORDINATOR Work Phone: [facility] 02-10-2024 08:32-0400 SaO2% (BldA) [Mass fraction] 100 % Reta Sanford [employer]OULTRY BONER.CAREER DEVELOPMENT COORDINATOR Work Phone: [facility] 02-10-2024 08:32-0400 Systolic blood pressure 123 mm[Hg] Reta Sanford POULTRY BONER.CAREER DEVELOPMENT COORDINATOR Work Phone: [facility] 02-08-2024 14:33-0400 Body mass index (BMI) [Ratio] 32.51 kg/m2 Deshawn Rose DO Work Phone: [facility] 02-08-2024 14:33-0400 Body weight 85.91 kg Deshawn Rose DO Work Phone: [facility] 02-08-2024 14:33-0400 Diastolic blood pressure 70 mm[Hg] Deshawn Rose DO Work Phone: [facility] 02-08-2024 14:33-0400 Systolic blood pressure 110 mm[Hg] Deshawn Rose DO Work Phone: [facility] 01-16-2024 09:56-0400 Body height 162.6 cm Norma Nicholas PA-C Work Phone: [facility] 01-16-2024 09:56-0400 Body mass index (BMI) [Ratio] 31.07 kg/m2 Norma Nicholas PA-C Work Phone: [facility] 01-16-2024 09:56-0400 Body weight 82.1 kg Norma Nicholas PA-C Work Phone: [facility] 12-29-2023 11:29-0400 Body height 162.6 cm [facility] Comment on above: patient reported 12-29-2023 11:29-0400 Body mass index (BMI) [Ratio] 30.04 kg/m2 [facility] 12-29-2023 11:29-0400 Body weight 79.38 kg [facility] Comment on above: patient reported 12-29-2023 11:29-0400 Heart rate 64 /min [facility] Comment on above: patient counted 12-22-2023 12:00-0400 Body mass index (BMI) [Ratio] 30.65 kg/m2 Tete Multani MD Work Phone: [facility] 12-22-2023 12:00-0400 Body temperature 98.01 [degF] Tete uMltani MD Work Phone: [facility] 12-22-2023 12:00-0400 Body weight 81 kg Tete Multani MD Work Phone: [facility] 12-22-2023 12:00-0400 Diastolic blood pressure 77 mm[Hg] Tete Multani MD Work Phone: [facility] 12-22-2023 12:00-0400 Heart rate 85 /min Tete Multani MD Work Phone: [facility] 12-22-2023 12:00-0400 Respiratory rate 18 /min Tete Multani MD Work Phone: [facility] 12-22-2023 12:00-0400 SaO2% (BldA) [Mass fraction] 100 % Tete Multani MD Work Phone: [facility] Comment on above: RA 12-22-2023 12:00-0400 Systolic blood pressure 127 mm[Hg] Tete Multani MD Work Phone: [facility] 11-08-2023 13:25-0400 Body height 162.6 cm Tete Multani MD Work Phone: [facility] 11-08-2023 13:25-0400 Body mass index (BMI) [Ratio] 29.18 kg/m2 Tete Multani MD Work Phone: [facility] 11-08-2023 13:25-0400 Body weight 77.11 kg Tete Multani MD Work Phone: [facility] 11-03-2023 23:00-0400 Diastolic blood pressure 84 mm[Hg] Shauna Patel DO Work Phone: [facility] 11-03-2023 23:00-0400 Heart rate 73 /min Shauna Patel DO Work Phone: [facility] 11-03-2023 23:00-0400 Respiratory rate 18 /min Shauna Patel DO Work Phone: [facility] 11-03-2023 23:00-0400 SaO2% (BldA) [Mass fraction] 94 % Shauna Patel DO Work Phone: [facility] 11-03-2023 23:00-0400 Systolic blood pressure 116 mm[Hg] Shauna Patel DO Work Phone: [facility] 11-03-2023 20:20-0400 Body height 162.6 cm Shauna Patel DO Work Phone: [facility] 11-03-2023 20:20-0400 Body mass index (BMI) [Ratio] 28.32 kg/m2 Shauna Samayoaft DO Work Phone: [facility] 11-03-2023 20:20-0400 Body temperature 98.91 [degF] Shauna Samayoaft DO Work Phone: [facility] 11-03-2023 20:20-0400 Body weight 74.84 kg Shauna Patel DO Work Phone: [facility] 09-13-2023 12:22-0400 Body height 162.6 cm Narda Faria MD Work Phone: [facility] 09-13-2023 12:22-0400 Body weight 77.11 kg Narda Faria MD Work Phone: [facility] 09-17-2022 04:06-0400 Body weight 84.[address] DESHAWN ROSE . [facility] Comment on above: Performed By: #### CT/NGNA #### [facility] [address] [place] [address] Dr. Phill Og Encounters Encounter Date Encounter [...] Start: 05-18-2024 End: 05-18-2024 ambulatory TETE MULTANI Facility:[facility] Start: 05-18-2024 End: 05-18-2024 Subsequent hospital visit by physician Clinic Imaging Mammo [facility] Comment on above: Breast pain [N64.4] Start: 05-11-2024 End: 05-11-2024 Patient encounter procedure Tete Multani MD Work Phone: [facility] Comment on above: Breast pain (Primary Dx) Start: 05-11-2024 End: 05-11-2024 ambulatory TETE MULTANI Facility:[facility] Start: 02-10-2024 End: 02-10-2024 ambulatory RETA SANFORD Facility:[facility] Start: 02-10-2024 End: 02-10-2024 Patient encounter procedure Reta Sanford P[employer] BONER.CAREER DEVELOPMENT COORDINATOR Work Phone: [facility] Comment on above: Breast pain (Primary [...] Start: 01-16-2024 End: 01-16-2024 ambulatory JOSE NELSON Facility:[facility] Start: 01-16-2024 End: 01-16-2024 Patient encounter procedure Norma Nicholas PA-C Work Phone: [facility] Comment on above: Mass of lower outer quadrant of right breast (Primary Dx) Start: 12-30-2023 End: 12-30-2023 ambulatory TETE DEE Facility:[facility] Start: 12-30-2023 Encounter for other preprocedural examination [facility] Start: 12-29-2023 End: 12-29-2023 Admission to [facility] Pre Anesthesia Start: 12-29-2023 End: 12-29-2023 ambulatory [facility] Facility:[facility] Start: 12-29-2023 End: 12-29-2023 Anesthesia consultation [facility] Pre Anesthesia Comment on above: Preop examination (P rimary Dx); History of syncope; Mild intermittent asthma without complication; Obesity, Class I, BMI 30-34.9; Anxiety and depression Start: 12-29-2023 End: 12-29-2023 Preprocedural examination done Pac Virtual [facility] Work Phone: Start: 12-23-2023 Orders Only Tete hawk MD Work Phone: [facility] Comment on above: Mass of right breast , unspecified quadrant (Primary Dx); Pre-op testing Start: 12-23-2023 Patient encounter status Tete Multani MD Work Phone: [facility] Start: 12-22-2023 End: 12-22-2023 ambulatory JONNATHAN PELAYO Facility:[facility] Start: 12-22-2023 End: 12-22-2023 Patient encounter procedure Tete Multani MD Work Phone: [facility] Comment on above: Mass of lower outer quadrant of right breast (Primary Dx); Obesity, Class I, BMI 30-34.9 Start: 11-08-2023 End: 11-08-2023 Patient encounter procedure Tete Multani MD Work Phone: [facility] Comment on above: Mass of lower outer quadrant of right breast (Primary Dx); Abscess of right breast Abscess of right william ast (Primary Dx) Start: 11-08-2023 End: 11-08-2023 ambulatory [facility] Facility:[facility] Start: 11-04-2023 Telephone encounter Reta hernandez APRN.CAREER DEVELOPMENT COORDINATOR Work Phone: [facility] Start: 11-03-2023 End: 11-03-2023 Emergency department patient visit Shauna Patel DO Work Phone: [facility] Comment on above: Cellulitis of right breast (Primary Dx) Start: 11-02-2023 End: 11-02-2023 Orders Only Katie Saeed RN Work Phone: [facility] Comment on above: Breast abscess (Prim otilia Dx) Breast abscess [N61. 1] Start: 11-02-2023 End: 11-02-2023 Office outpatient visit 15 minutes Narda Faria MD Work Phone: [facility] Comment on above: Mass of right breast , unspecified quadrant (Primary Dx) Start: 10-13-2023 Telephone encounter Donna Gracia RN Work Phone: Mammography Comment on above: Results Start: 10-11-2023 End: 10-11-2023 ambulatory [facility] Facility:[facility] Start: 10-11-2023 End: 10-11-2023 Subsequent hospital visit by physician Procedure Mammo [facility] Comment on above: Breast disorder [N64 .9] Start: 09-13-2023 End: 09-13-2023 ambulatory Yolanda Angela MD Work Phone: Mammography Comment on above: Breast Problem Start: 09-13-2023 Patient encounter procedure Yolanda Angela MD Work Phone: [facility] Start: 09-13-2023 End: 09-13-2023 Office outpatient visit 25 minutes Narda Faria MD Work Phone: [facility] Comment on above: Mass of right breast , unspecified quadrant (Primary Dx) Start: 09-13-2023 End: 09-13-2023 Subsequent hospital visit by physician Diagnostic Mammo Main Mammography Comment on above: 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, 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] Start: 06-14-2023 End: 06-14-2023 ambulatory JONNATHAN PELAYO Facility:[facility] Start: 06-14-2023 ambulatory JONNATHAN PELAYO Facility :[facility] Start: 05-17-2023 Orders Only Katie grande [...] Start: 02-09-2023 End: 02-09-2023 ambulatory Deshawn Rose Facility:[facility] Start: 02-09-2023 End: 02-09-2023 ambulatory Deshawn Rose Work Phone: [facility] Work Phone: Start: 02-09-2023 End: 02-09-2023 Departed Referred Deshawn Rose Work Phone: [facility] [place] Work Phone: Start: 09-27-2022 End: 09-28-2022 ambulatory [...] Start: 02-06-2020 Patient encounter procedure Avirup Cuco IO-Mtnpeaqrsm-Fovyaid [address] Work Phone: Start: 01-29-2020 Patient encounter procedure Avirup Cuco BY-Ihbnkhxdkq-Iuqegjq [address] Work Phone: Start: 01-21-2020 Patient encounter procedure Avirup Cuco RM-Aqmldwipvp-Dffvqjf [address] Work Phone: Start: 01-18-2020 Patient encounter procedure Avirup Cuco PM-Ifoevmpydo-Fxmslzk [address] Work Phone: Start: 05-09-2018 End: 05-10-2018 Patient encounter procedure Jolynn Villa Facility:[facility] Start: 05-03-2018 End: 05-03-2018 Emergency department patient visit Digna Paco Oro Facility:[facility] Start: 03-10-2018 End: 03-10-2018 Emergency department patient visit Cookie Timoteo Facility:[facility] Start: 03-08-2018 End: 03-08-2018 Emergency department patient visit Ashleypollo Hernandez Madhavi Facility:[facility] Start: 08-01-2017 End: 08-01-2017 Emergency department patient visit [facility] Kathrine [facility] Start: 06-24-2017 End: 06-25-2017 [facility] Start: 06-24-2017 End: 06-24-2017 [facility]ulatory [facility] Start: 06-21-2017 End: 06-21-2017 Emergency department patient visit JONNATHAN PELAYO [facility] Procedures Date Procedure Procedure Detail Performing Clinician [...] f 2) Zoster Vaccines (1 of 2) [facility] Start: 08-02-2027 DTaP/Tdap/Td Vaccine s (8 - Td or Tdap) DTaP/Tdap/Td Vaccines (8 - Td or Tdap) [facility] Start: 08-02-2027 Urine microalbumin profile DTaP,Tdap,Td Vaccine (8 - Td or Tdap) [facility] Start: 08-14-2024 End: 08-14-2024 Patient encounter procedure 08/14/2024 1:50 PM EDT Routine [facility] [address] [facility] [id number] Deshawn Rose, DO [address] [place] [address] [facility] Start: 07-12-2024 End: 07-12-2024 Patient encounter procedure 07/12/2024 11:10 AM EST Routine [facility] [address] [place] [id number] Deshawn Rose, DO [address] [place] [address] [facility] Start: 07-10-2024 End: 07-10-2024 Patient encounter procedure 07/10/2024 1:40 PM EST Office Visit [address] [address] Tete Multani MD [address] [place] [address] 2 month follow up/[facility] Comment on above: 2 month follow up/st aff ms Start: 06-14-2024 End: 06-14-2025 ABO/Rh ABO/Rh Lab Routine Missed menses , unspecified gestational age Expected: 06/14/2024 (Approximate), Expires: 06/14/2025 [facility] Comment on above: Expected: 06/14/2024 (Approximate), Expires: 06/14/2025 Start: 06-14-2024 End: 06-14-2025 Blood type and Indirect antibody screen panel - Blood Type and screen Lab Routine Missed menses , unspecified gestational age Expected: 06/14/2024 (Approximate), Expires: 06/14/2025 [facility] Work Phone: Comment on above: Expected: 06/14/2024 (Approximate), Expires: 06/14/2025 Start: 06-14-2024 End: 06-14-2025 Drugs of abuse panel - Urine by Screen method Rapid drug screen, urine Lab Routine , unspecified gestational age Encounter for supervision of normal first in first trimester Expected: 06/14/2024 (Approximate), Expires: 06/14/2025 [facility] Comment on above: Expected: 06/14/2024 (Approximate), Expires: 06/14/2025 Start: 05-18-2024 End: 05-18-2024 Patient encounter procedure Mammography Comment on above: Pt is seeing Dr. Humberto perry in [facility] please direct patient to 8th floor once imaging completed. 8:00am Imaging in A1 0 Start: 04-20-2024 End: 04-20-2024 Patient encounter procedure 04/20/2024 11:30 AM EST Office Visit [facility] [address] [address] Norma Nicholas PA-C [address] [place], [place] [id number] post op- 3 mth follow up- [facility] Center Comment on above: post op- 3 mth follo w up- Start: 02-08-2024 End: 02-07-2025 DHEA DHEA Lab Routine PCOS (polycystic ovarian syndrome) Expected: 02/08/2024 (Approximate), Expires: 02/07/2025 [facility] Comment on above: Expected: 02/08/2024 (Approximate), Expires: 02/07/2025 Start: 02-08-2024 End: 02-08-2024 Patient encounter procedure 02/08/2024 2:00 PM EDT Office Visit [facility] [address] [facility] [place] [phone] Deshawn Rose DO [address] [facility] [place] [address] Arrived [facility] Comment on above: Arrived Start: 01-29-2024 Covid-19 Vaccine ( season) Covid-19 Vaccine ( season) [facility] Start: 01-29-2024 Covid-19 Vaccine ( season) Covid-19 Vaccine ( season) [facility] Start: 01-29-2024 Influenza vaccination [facility] Start: 01-16-2024 End: 01-16-2024 Patient encounter procedure 01/16/2024 9:30 AM EDT Office Visit [facility] [address] [address] Norma Nicholas PA-C [address] [place], [place] [phone] post op [facility] Center Comment on above: post op Start: 01-09-2024 End: 01-09-2024 Admission to same day surgery center 01/09/2024 2:05 PM EDT - 01/09/2024 3:35 PM EDT Surgery Ambulatory Surgery [address] [place] [address] Tete Multani MD [address] [place] [address] RIGHT PALPATION EXCISIONAL BIOPSY Ambulatory Surgery Comment on above: RIGHT PALPATION EXCI SIONAL BIOPSY Start: 01-09-2024 End: 01-09-2024 Exc cyst/aberrant breast tissue open 1/> lesion OPEN EXCISION OF BREAST CYST UNILATERAL FEMALE BREAST Mass of right breast, unspecified quadrant 01/09/2024 2:05 PM EDT ERIN ALESSANDRO Start: 01-09-2024 Subsequent hospital visit by physician 01/09/2024 2:05 PM EDT Hospital Encounter Ambulatory Surgery [address] [place] [address] Tete Multani MD [address] [place], [place] [id number] Mass of right breast, unspecified quadrant [N63.10] Ambulatory Surgery Comment on above: Mass of right breast , unspecified quadrant [N63.10] Start: 12-30-2023 End: 12-30-2023 ambulatory 12/30/2023 11:30 AM EDT Results Only [facility] [address] [place] [address] pre op labs [facility] Comment on above: pre op labs Start: 12-23-2023 End: 03-23-2024 CBC W Auto Differential panel - Blood COMPLETE BLOOD COUNT AND DIFFERENTIAL Lab Routine Pre-op testing Expected: 12/23/2023 (Approximate), Expires: 03/23/2024 [facility] Comment on above: Expected: 12/23/2023 (Approximate), Expires: 03/23/2024 Start: 12-23-2023 End: 03-23-2024 Comprehensive metabolic 2000 panel - Serum or Plasma COMPREHENSIVE METABOLIC PANEL Lab Routine Pre-op testing Expected: 12/23/2023 (Approximate), Expires: 03/23/2024 [facility] Work Phone: Comment on above: Expected: 12/23/2023 (Approximate), Expires: 03/23/2024 Start: 11-08-2023 End: 11-08-2023 Patient encounter procedure 11/08/2023 1:20 PM EDT Office Visit [facility] [address] [address] Tete Multani MD [address] [place] [address] NEW SURGICAL Breast Center Comment on above: NEW SURGICAL Start: 11-04-2023 End: 11-04-2023 Patient encounter procedure 11/04/2023 8:15 AM EDT Office Visit [facility] Center [address] [place] [address] Narda Faria MD [address] [place] [address] INCISION CHECK [facility] Center Comment on above: INCISION CHECK Start: 06-14-2023 End: 06-15-2024 US BREAST LTD RIGHT US BREAST LTD RIGHT Radiology Routine Mass of lower outer quadrant of right breast Expected: 06/14/2023, Expires: 06/15/2024 [facility] Work Phone: Comment on above: Expected: 06/14/2023 , Expires: 06/15/2024 Start: 05-30-2023 Behavioral Health Screening Behavioral Health Screening [facility] Start: 01-28-2023 Covid-19 Vaccine ( season) Covid-19 Vaccine ( season) [facility] Start: 01-28-2023 Influenza vaccination Influenza Vacc ine (#1) [facility] Start: 05-30-2022 Depression Assessment Depression Ass essment [facility] Start: 2020 Screening for malignant neoplasm of cervix [facility]: [facility]18-2020 [facility] Start: 2018 Urine microalbumin profile DTaP,Tdap,Td Vaccine (1 - Tdap) [facility] Start: 2017 Annual PCP Team Chronic Disease Visit Annual PCP Team Chronic Disease Visit [facility] [place] Start: 2017 Depression Screening Depression Scre ening [facility] [place] Start: 2017 Hepatitis C screening Hepatitis C Sc yevgeniy [facility] [place] Start: 2017 HIV screening HIV Screening [facility] Start: 2017 Spirometry Spirometry [facility] [place] Start: 2015 Meningococcal B Vaccine: Consider Based On Risk (1 of 2 - Patient Seeks Protection) Meningococcal B Vaccine: Consider Based On Risk (1 of 2 - Patient Seeks Protection) [facility] [place] Start: 2014 HPV Vaccine (1 - 3-dose series) HPV Vaccine (1 - 3-dose series) [facility] [place] Start: 2014 HPV Vaccines (1 - 3-dose series) HPV Vaccines (1 - 3-dose series) [facility] Start: 2013 Peds To Adult Transition Annual Assessment Peds To Adult Transition Annual Assessment [facility] [place] Start: 2011 Peds To Adult Transition Initial Discussion Peds To Adult Transition Initial Discussion [facility] [place] Start: 2008 HPV Vaccine (1 - 2-dose series) HPV Vaccine (1 - 2-dose series) [facility] [place] Start: 2005 Pneumococcal vaccination Pneumococcal Vaccine (1 of 2 - PCV) [facility] [place] Start: 2005 Pneumococcal Vaccine : Pediatrics (0 to 5 Years) and At-Risk Patients (6 to 64 Years) (1 of 2 - PCV) Pneumococcal Vaccine: Pediatrics (0 to 5 Years) and At-Risk Patients (6 to 64 Years) (1 of 2 - PCV) [facility] Start: 1999 Covid-19 Vaccine (#1) Covid-19 Vacci ne (#1) [facility] [place] Start: 1999 Hepatitis B Vaccine (1 of 3 - 3-dose series) Hepatitis B Vaccine (1 of 3 - 3-dose series) [facility] [place] Start: 1999 HIV screening HIV Screening [facility] Start: 1999 Lipid panel Lipid Panel [facility] Start: 1999 Yearly Adult Physical Yearly Adult P hysical [facility] Aerobic culture Aerobic culture Microbiology Routine Nipple discharge Ordered: 02/08/2024 [facility] Comment on above: Ordered: 02/08/2024 Anaerobic culture Anaerobic cult ure Microbiology Routine Nipple discharge Ordered: 02/08/2024 [facility] Work Phone: Comment on above: Ordered: 02/08/2024 End: 11-03-2023 Bacteria identified in Blood by Culture [facility] Service Area Work Phone: Comment on above: STAT (Lab) for 1 Occ urrences starting 11/03/2023 until 11/03/2023 End: 11-03-2023 Bacteria identified in Unspecified specimen by Culture Tissue/Wound Culture/Smear Microbiology STAT Once (Lab) for 1 Occurrences starting 11/03/2023 until 11/03/2023 [facility] Work Phone: Comment on above: Once (Lab) for 1 Occ urrences starting 11/03/2023 until 11/03/2023 Bacteria identified in Urine by Culture Urine culture Microbiology Routine Missed menses Ordered: 06/14/2024 [facility] Comment on above: Ordered: 06/14/2024 Bacteria identified in Wound by Culture ABSCESS AND WOUND CULTURE WITH GRAM STAIN Microbiology Routine Breast abscess 11/02/2023 1:19 PM EDT [facility] Work Phone: CBC W Auto Differential panel - Blood CBC and differential Lab Routine PCOS (polycystic ovarian syndrome) Ordered: 02/08/2024 [facility] Comment on above: Ordered: 02/08/2024 CBC W Auto Differential panel - Blood CBC and differential Lab Routine Missed menses , unspecified gestational age Ordered: 06/14/2024 [facility] Comment on above: Ordered: 06/14/2024 DHEA-sulfate DHEA-sulfate Lab Routine PCOS (polycystic ovarian syndrome) Ordered: 02/08/2024 [facility] Comment on above: Ordered: 02/08/2024 Exc cyst/aberrant breast tissue open 1/> lesion EXCIS BREAST LESION Procedures Routine Mass of right breast, unspecified quadrant Ordered: 12/23/2023 [facility] [place] Comment on above: Ordered: 12/23/2023 Follicle stimulating hormone Follicle stimulating hormone Lab Routine PCOS (polycystic ovarian syndrome) Ordered: 02/08/2024 [facility] Comment on above: Ordered: 02/08/2024 hCG, quantitative, hCG, quantitative, Lab Routine PCOS (polycystic ovarian syndrome) Ordered: 02/08/2024 [facility] Comment on above: Ordered: 02/08/2024 Hemoglobin A1c/Hemoglobin.total in Blood Hemoglobin A1c Lab Routine Weight gain Ordered: 02/08/2024 [facility] Comment on above: Ordered: 02/08/2024 Hemoglobin A1c/Hemoglobin.total in Blood Hemoglobin A1c Lab Routine Missed menses , unspecified gestational age Ordered: 06/14/2024 [facility] Comment on above: Ordered: 06/14/2024 Hepatitis B virus surface Ag [Presence] in Serum or Plasma by Immunoassay Hepatitis B surface antigen Lab Routine Missed menses , unspecified gestational age Ordered: 06/14/2024 [facility] Comment on above: Ordered: 06/14/2024 Hepatitis C virus Ab [Presence] in Serum or Plasma by Immunoassay Hepatitis C antibody Lab Routine Missed menses , unspecified gestational age Ordered: 06/14/2024 [facility] Comment on above: Ordered: 06/14/2024 HIV-1/HIV-2 antigen/antibody combination immunoassay HIV-1 and HIV-2 antibodies Lab Routine Missed menses , unspecified gestational age Ordered: 06/14/2024 [facility] Comment on above: Ordered: 06/14/2024 Luteinizing hormone Luteinizing hormone Lab Routine PCOS (polycystic ovarian syndrome) Ordered: 02/08/2024 [facility] Comment on above: Ordered: 02/08/2024 Reagin Ab [Presence] in Serum by RPR RPR Lab Routine Missed menses , unspecified gestational age Ordered: 06/14/2024 [facility] Comment on above: Ordered: 06/14/2024 Rubella antibody, IgG Rubella an tibody, IgG Lab Routine Missed menses , unspecified gestational age Ordered: 06/14/2024 [facility] Comment on above: Ordered: 06/14/2024 SURGICAL PATHOLOGY [facility] Work Phone: Comment on above: Release Upon Orderin g for 1 Occurrences starting 10/11/2023, 1 completed Thyrotropin [Units/volume] in Serum or Plasma TSH Lab Routine PCOS (polycystic ovarian syndrome) Ordered: 02/08/2024 [facility] Comment on above: Ordered: 02/08/2024 Thyroxine (T4) free [Mass/volume] in Serum or Plasma T4, free Lab Routine PCOS (polycystic ovarian syndrome) Ordered: 02/08/2024 [facility] Comment on above: Ordered: 02/08/2024 End: 12-07-2024 US Breast - right limited US BREAST LTD RIGHT Radiology Routine Abscess of right breast 1 Occurrences starting 11/08/2023 until 12/07/2024 [facility] Work Phone: Comment on above: 1 Occurrences starti ng 11/08/2023 until 12/07/2024 End: 06-10-2025 US Breast - right limited US BREAST LTD RIGHT Radiology Routine Breast pain 1 Occurrences starting 05/11/2024 until 06/10/2025 [facility] Work Phone: Comment on above: 1 Occurrences starti ng 05/11/2024 until 06/10/2025 End: 06-08-2024 US BREAST LTD RIGHT US BREAST LTD RIGHT Radiology Routine Mass of right breast, unspecified quadrant 1 Occurrences starting 05/10/2023 until 06/08/2024 [facility] Work Phone: Comment on above: 1 Occurrences starti ng 05/10/2023 until 06/08/2024 End: 10-12-2024 US Guidance for biopsy of Breast - right US BIOPSY BREAST RIGHT Radiology Routine Breast disorder 1 Occurrences starting 09/13/2023 until 10/12/2024 [facility] Work Phone: Comment on above: 1 Occurrences starti ng 09/13/2023 until 10/12/2024 [facility] Work Phone: [facility] NEGATED: Highlighted row has been ruled out! Planned Goals not documented [facility] Work Phone: Immunizations Immunization Date Immunization Notes Care Provider Tyson mccain 04-03-2019 influenza, injectabl e, quadrivalent, preservative free Katie Saeed RN Work Phone: [facility] [place] Work Phone: 04-03-2019 influenza virus vacc ine, unspecified formulation Katie Saeed RN Work Phone: [facility] [place] 08-01-2017 tetanus toxoid, redu lissa diphtheria toxoid, and acellular pertussis vaccine, adsorbed Katie Saeed RN Work Phone: [facility] [place] Work Phone: 01-25-2012 meningococcal oligosaccharide (groups A, C, Y and W-135) diphtheria toxoid conjugate vaccine (MCV4O) Katie Saeed RN Work Phone: [facility] [place] Work Phone: 01-25-2012 meningococcal polysaccharide (groups A, C, Y and W-135) diphtheria toxoid conjugate vaccine (MCV4P) Katie Saeed RN Work Phone: [facility] [place] Work Phone: 01-25-2012 tetanus toxoid, redu lissa diphtheria toxoid, and acellular pertussis vaccine, adsorbed Katie Saeed RN Work Phone: [facility] [place] Work Phone: 01-25-2012 varicella virus vaccine Lilli Saeed RN Work Phone: [facility] [place] Work Phone: 01-20-2005 diphtheria, tetanus toxoids and acellular pertussis vaccine Katie Saeed RN Work Phone: [facility] [place] Work Phone: 01-20-2005 measles, mumps and rubella virus vaccine Katie Saeed RN Work Phone: [facility] [place] Work Phone: 01-20-2005 poliovirus vaccine, inactivated Katie Saeed RN Work Phone: [facility] [place] Work Phone: 03-01-2001 pneumococcal conjuga te vaccine, 7 valent Katie Saeed RN Work Phone: [facility] [place] Work Phone: 08-24-2000 diphtheria, tetanus toxoids and acellular pertussis vaccine Ktaie Saeed RN Work Phone: [facility] [place] Work Phone: 08-24-2000 diphtheria, tetanus toxoids and acellular pertussis vaccine, unspecified formulation Katie Saeed RN Work Phone: [facility] [place] Work Phone: 08-24-2000 haemophilus influenz ae type b vaccine, PRP-OMP conjugate Katie Saeed RN Work Phone: [facility] [place] Work Phone: 08-24-2000 measles, mumps and rubella virus vaccine Kaite Saeed RN Work Phone: [facility] [place] Work Phone: 08-24-2000 pneumococcal conjuga te vaccine, 7 valent Katie Saeed RN Work Phone: [facility] [place] Work Phone: 08-24-2000 poliovirus vaccine, inactivated Katie Saeed RN Work Phone: [facility] [place] Work Phone: 08-24-2000 varicella virus vaccine Lilli Saeed RN Work Phone: [facility] [place] Work Phone: 1999 hepatitis B vaccine, adult dosage Katie Saeed RN Work Phone: [facility] [place] Work Phone: 1999 hepatitis B vaccine, pediatric or pediatric/adolescent dosage Katie Saeed RN Work Phone: [facility] [place] Work Phone: 1999 diphtheria, tetanus toxoids and acellular pertussis vaccine Katie Saeed RN Work Phone: [facility] [place] Work Phone: 1999 haemophilus influenz ae type b vaccine, PRP-OMP conjugate Katie Saeed RN Work Phone: [facility] [place] Work Phone: 1999 diphtheria, tetanus toxoids and acellular pertussis vaccine Katie Saeed RN Work Phone: [facility] [place] Work Phone: 1999 haemophilus influenz ae type b vaccine, conjugate unspecified formulation Katie Saeed RN Work Phone: [facility] [place] Work Phone: 1999 haemophilus influenz ae type b vaccine, PRP-OMP conjugate Katie Saeed RN Work Phone: [facility] [place] Work Phone: 1999 hepatitis B vaccine, adult dosage Katie Saeed RN Work Phone: [facility] [place] Work Phone: 1999 hepatitis B vaccine, pediatric or pediatric/adolescent dosage Katie Saeed RN Work Phone: [facility] [place] Work Phone: 1999 trivalent poliovirus vaccine, live, oral Katie Saeed RN Work Phone: [facility] [place] Work Phone: 1999 diphtheria, tetanus toxoids and acellular pertussis vaccine Katie Saeed RN Work Phone: [facility] [place] Work Phone: 1999 haemophilus influenz ae type b vaccine, conjugate unspecified formulation Katie Saeed RN Work Phone: [facility] [place] Work Phone: 1999 haemophilus influenz ae type b vaccine, PRP-OMP conjugate Katie Saeed RN Work Phone: [facility] [place] Work Phone: 1999 hepatitis B vaccine, adult dosage Katie Saeed RN Work Phone: [facility] [place] Work Phone: 1999 hepatitis B vaccine, pediatric or pediatric/adolescent dosage Katie Saeed RN Work Phone: [facility] [place] Work Phone: 1999 trivalent poliovirus vaccine, live, oral Katie Saeed RN Work Phone: [facility] [place] Work Phone: Payers Date P[facility] Category [id number] 2022 Unknown [id number] 2017 Unknown [id number] 2017 Unknown [id number] 2014 Unknown 1999 Unknown [id number] [id number]. 2.727 1999 Unknown [id number] 2.16.840.1.360783.3.579. 2.727 1999 Unknown [id number] 2.16.840.1.499506.3.579. 2.727 1999 Unknown [id number] 2.16.840.1.506551.3.579. 2.727 1999 Unknown [id number] 2.16.840.1.888573.3.579. 2.593 1999 Unknown [id number] 2.16.840.1.423521.3.579. 2.593 1999 Unknown [id number] 2.16.840.1.983337.3.579. 2.593 1999 Unknown [id number] 2.16.840.1.741269.3.579. 2.593 1999 Unknown [id number] 2.16.840.1.646393.3.579. 2.593 1999 Unknown [id number] 2.16.840.1.594773.3.579. 2.593 1999 Unknown [id number] 2.16.840.1.090984.3.579. 2.593 1999 Unknown [id number] 2.16.840.1.193593.3.579. 2.593 1999 Unknown [id number] 2.16.840.1.071498.3.579. 2.1243 1999 Unknown [id number] 2.16.840.1.403279.3.579. 2.1259 1999 Unknown [id number] 2.16.840.1.720182.3.579. 2.1259 1999 Unknown [id number] 2.16.840.1.783910.3.579. 2.1259 1959 Self-pay 1959 Unknown [id number] 1959 Unknown [id number] Unknown [id number] [id number]. 2.531 Social History Date Type Detail Facility Start: 1999 Sex Assigned At Female [facility] Start: 05-13-2014 End: 11-10-2022 Tobacco smoking status CAIS Never smoked tobacco [facility] [place] Start: 05-13-2014 End: 12-22-2023 Alcohol intake Current non-drinker of alcohol (finding) [facility] [place] Start: 05-26-2015 End: 02-08-2024 History of Social function [facility] [place] Start: 05-26-2015 End: 02-08-2024 Tobacco use panel [facility] [place] Start: 1999 Sex Assigned At Not on file [facility] [place] Start: 05-17-2023 End: 05-18-2024 Tobacco smoking status NHIS Ex-smoker [facility] [place] Work Phone: Start: 05-30-2014 End: 05-30-2017 History of tobacco use Current smoker [facility] [place] Work Phone: Start: 05-30-2014 End: 05-30-2017 History of tobacco use Cigarette Smoker [facility] [place] Work Phone: National Score (1-100), lower number is lower risk 45 [facility] [place] Start: 05-17-2023 Alcohol Comment Rarely [facility] Tobacco smoking status NHIS Tobacco smoking consumption unknown [facility] Work Phone: Start: 12-29-2023 End: 05-18-2024 Alcohol intake Current drinker of alcohol (finding) [facility] [place] Start: 11-10-2022 End: 05-18-2024 Tobacco use and exposure Smokeless tobacco non-user [facility] Start: 02-08-2024 End: 06-14-2024 Alcoholic beverage intake Lifetime non-drinker (finding) [facility] Start: 11-11-2022 Gender identity Identifies as female gender (finding) [facility] Start: 05-09-2024 [facility] NEGATED: Highlighted row - - [facility] Work Phone: Medical Equipment Procedure Code Equipment Code Equipment Origin al Text Equipment Identifier Dates Ultrasound Clip [id number] Start: 10-11-2023 Functional Status Date Assessment Result Facility NEGATED: Highlighted row Functional performance Functional status health issues are not documented Disease [facility] Work Phone: Mental Status Date Assessment Result Facility NEGATED: Highlighted row Cognitive function [Interpretation] Cognitive status health issues are not documented Disease [facility] [employer] Phone: Clinical Notes 06-14-2023 to 07-12-2024 Jahaira [...] nursing note reviewed. Exam conducted with a fire technician present. Vitals: Estimated body mass index is [...] or undercooked meat, and stay away from [facility]. Patient has been consulted regarding any further [...] Deshawn Rose DO documented in this encounter [facility] 06-14-2024 History of Present illness Narrative Reason [...] or undercooked meat, and stay away from [facility]. Patient has also been advised to not [...] Lacey Paz LPN documented in this encounter [facility] 05-18-2024 Instructions Tete Multani MD - 05/18/2024 [...] for 2 months) documented in this encounter [facility] [place] 05-18-2024 History of Present illness Narrative Images from the original note were not included. [facility] [place] Department of Breast Surgery [facility] POST OPERATIVE FOLLOW-UP SERVICE DATE: [...] in 3rd trimester. 01/2023 - Delivered baby [place] mass grew in size February 2023 ([facility]) Right breast US showing a 2.2 x 1.7 x 0.9 cm mass at 6:00. 04/11/2023 ([facility])- Right breast US-guided CNBx showed findings consistent [...] DATE OF EXAM: May 18 2024 9:00AM [facility] [id number] - [place] US BREAST LTD RT / PROCEDURE REASON: Breast pain * * * * Physician Interpretation * * * * RESULT: [address] [place] [address] #[id number] - [facility] US BREAST LTD RT HISTORY: Patient [...] Abel Moody M.D. Electronically signed on: 05/18/2024 Tube Blower: ARAM Transcribe Date/Time: May 18 2024 9:00A [...] She is aware that I am leaving [place] in June. She has asked to only [...] which included preparing to see the patient, [id number] patient care, completing clinical documentation, obtaining and/or reviewing separately obtained history, performing a medically appropriate examination, and counseling and educating the patient/family/caregiver. Tete Multani MD FACOG Breast Surgical Oncology & Benign Gynecology [address] [place] [address] Appointment documented in this encounter [facility] [place] 05-18-2024 Note HNO ID: [id number] Author: TETE MULTANI MD Service: ? Author Type: Physician Type: Progress Notes Filed: 05/18/2024 10:03 Note Text: [facility] [place] Department of Breast Surgery [facility] POST OPERATIVE FOLLOW-UP SERVICE DATE: [...] in 3rd trimester. 01/2023 - Delivered baby [place] mass grew in size February 2023 ([facility]) Right breast US showing a 2.2 x 1.7 x 0.9 cm mass at 6:00. 04/11/2023 ([facility])- Right breast US-guided CNBx showed findings consistent [...] May 18 2024 9:00AM [facility] [id number] - [facility] US BREAST LTD RT / PROCEDURE REASON: Breast pain * * * * Physician Interpretation * * * * RESULT: [facility] [address] [facility] [address] [place] [id number] #[id number] - [facility] US BREAST LTD RT HISTORY: Patient is 24 years old and is seen for diagnostic evaluation of diffuse pain in the right breast. COMPARISON STUDIES: The present examination has been compared to prior imaging studies dated 06/14/2023 (ultrasound), 09/13/2023 (ultrasound), 11/02/2023 (ultrasound) and 01/02/2024 (ultrasound). ULTRASOUND TECHNIQUE: Targeted ultrasound of the indicated area was (more content not included)... [facility] 05-11-2024 Note HNO ID: [id number] Author: TETE MULTANI MD Service: ? Author Type: Physician Type: Progress Notes Filed: 05/11/2024 15:50 Note Text: [facility] [place] Department of Breast Surgery [facility] POST OPERATIVE FOLLOW-UP SERVICE DATE: [...] in 3rd trimester. 01/2023 - Delivered baby [place] mass grew in size February 2023 ([facility]) Right breast US showing a 2.2 x 1.7 x 0.9 cm mass at 6:00. 04/11/2023 ([facility])- Right breast US-guided CNBx showed findings consistent [...] is aware th (more content not included)... [facility] 05-11-2024 History of Present illness Narrative Images from the original note were not included. [facility] [place] Department of Breast Surgery [facility] POST OPERATIVE FOLLOW-UP SERVICE DATE: [...] in 3rd trimester. 01/2023 - Delivered baby [place] mass grew in size February 2023 ([facility]) Right breast US showing a 2.2 x 1.7 x 0.9 cm mass at 6:00. 04/11/2023 ([facility])- Right breast US-guided CNBx showed findings consistent [...] She is aware that I am leaving [place] in June. She has asked to only [...] which included preparing to see the patient, [id number] patient care, completing clinical documentation, obtaining and/or reviewing separately obtained history, performing a medically appropriate examination, and counseling and educating the patient/family/caregiver. Tete Multani MD FACOG Breast Surgical Oncology & [place] [address] Appointment documented in this encounter [facility] [place] 02-10-2024 Nurse Note Additional intake questions: Has the patient had fever, nausea, vomiting, diarrhea, constipation, fatigue for > 1 week? No Does the patient have a decreased appetite? No Does patient want to see a Furnace Mechanic Helper? No (yes to any of above refer patient to schedulers for dietitian appointment) ) Does patient have any new or increased numbness or tingling of extremities? No Is patient interested in fertility information? No Does patient need any prescription refills? No Does patient have an advanced directive in place? No, Patient refused referral to Social Work or Resource Center [facility] [place] 02-10-2024 Nurse Note Additional intake questions: Has the patient had fever, nausea, vomiting, diarrhea, constipation, fatigue for > 1 week? No Does the patient have a decreased appetite? No Does patient want to see a Furnace Mechanic Helper? No (yes to any of above refer patient to schedulers for dietitian appointment) ) Does patient have any new or increased numbness or tingling of extremities? No Is patient interested in fertility information? No Does patient need any prescription refills? No Does patient have an advanced directive in place? No, Patient refused referral to Social Work or Resource Center documented in this encounter [facility] [place] 02-10-2024 History of Present illness Narrative BREAST [...] as generalized breast pain. PATHOLOGY: SURGICAL PATHOLOGY: [id number] Order: [id number] Collected 01/09/2024 1:56 PM Status: Final result [...] Reta Sanford APRN.CNP documented in this encounter [facility] [place] 02-10-2024 Note HNO ID: [id number] Author: RETA SANFORD APRN.[place] Service: ? Author [...] as generalized breast pain. PATHOLOGY: SURGICAL PATHOLOGY: [id number] Order: [id number] Collected 01/09/2024 1:56 PM Status: Final result [...] patient has no further concerns. Reta Sanford APRN.[facility] 02-08-2024 History of Present illness Narrative [...] nursing note reviewed. Exam conducted with a fire technician present. Vitals: Estimated body mass index is [...] Deshawn Rose DO documented in this encounter [facility] 01-16-2024 History of Present illness Narrative Images [...] Norma Nicholas PA-C documented in this encounter [facility] [facility] 01-16-2024 Note HNO ID: [id number] Author: NORMA NICHOLAS PA-C Service: ? Author Type: Physician Gun Mechanic Type: Progress Notes Filed: 01/16/2024 10:46 Note [...] has no further concerns. Norma Nicholas PA-C [facility] 01-09-2024 Note HNO ID: [id number] Author: BRANDI GRUBBS APRN.DOOR ASSEMBLER Service: Anesthesiology Author Type: Nurse Recruiting Associate Type: Anesthesia Procedure Notes Filed: 01/09/2024 13:46 Note Text: ANESTHESIOLOGY PROCEDURE NOTE Airway General Information Procedure Start Time/Medication Administration: 01/09/2024 1:41 PM Procedure End Time: 01/09/2024 1:14 PM Patient location during procedure: OR Timeout Performed Pre-procedure: timeout performed Consent Obtained: Yes Patient identity confirmed: arm band, care prepared foods production team member and patient Staffing DOOR ASSEMBLER: Brandi Grubbs APRN.DOOR ASSEMBLER Performed by: DOOR ASSEMBLER Indications and Patient Condition Indications for airway [...] January 09, 2024 TIME: 1:46 PM CSN: [id number] [facility] 12-29-2023 Instructions Jerardo Escamilla PA-C - 12/29/2023 11:50 AM EDT Images from the original note were not included. [facility]Anesthesia Consultation Clinic PATIENT PREOPERATIVE INSTRUCTIONS Tete Multani, * has scheduled you for your procedure at this surgery center: [facility]: [phone] --[address] [place] [address] Location is near [facility]. Please read below carefully for your personalized [...] Procedures: - YOU MUST HAVE A RESPONSIBLE MILL MACHINIST TAKE YOU HOME. A LEAD PROJECT ENGINEER OR RETAIL GREETER CANNOT BE MADE A RESPONSIBLE MILL MACHINIST. - We recommend that a responsible person [...] Advance Directive, please fax a copy to [phone] or email to for it to be [...] M Sudik, PA-C documented in this encounter [facility] 12-29-2023 History and physical note Images from the original note were not included. PREANESTHESIA CONSULT CLINIC TELEHEALTH VISIT Patient has been identified by name and date of : Yes This is a virtual visit using [employer] Zoom Video Visit. It require patient-provider interaction for the medical decision making as documented below. Reason for contact: PACC visit Accompanied by: Self Scheduled Surgery: Procedure(s) (LRB): RIGHT PALPATION EXCISIONAL BIOPSY (Right) I have communicated my name and active licensure. The patient's identity and physical location were verified at the time of this visit. Either the patient or their legal termite control service representative has been informed of the risks [...] years ago while driving, Negative for Recent HI, CAD, Chest Pain, CHF, Valvular Heart Disease, DVT/PE, edema, orthopnea GI: Positive for history of recurrent nausea earlier in 2023 - resolved, Negative for Heartburn, Vomiting, Abdominal pain, Hepatitis, Pancreatitis : No history of dysuria, frequency or incontinence,, stones or chronic kidney disease CLOTH SPREADER: Negative for abnormal vaginal bleeding, abnormal vaginal [...] DATE: 12/29/2023 TIME: 11:27 AM PAGER/CONTACT #: [facility] 12-29-2023 History and physical note Images from the original note were not included. PREANESTHESIA CONSULT CLINIC TELEHEALTH VISIT Patient has been identified by name and date of : Yes This is a virtual visit using [employer] Zoom Video Visit. It require patient-provider interaction for the medical decision making as documented below. Reason for contact: PACC visit Accompanied by: Self Scheduled Surgery: Procedure(s) (LRB): RIGHT PALPATION EXCISIONAL BIOPSY (Right) I have communicated my name and active licensure. The patient's identity and physical location were verified at the time of this visit. Either the patient or their legal termite control service representative has been informed of the risks [...] years ago while driving, Negative for Recent HI, CAD, Chest Pain, CHF, Valvular Heart Disease, DVT/PE, edema, orthopnea GI: Positive for history of recurrent nausea earlier in 2023 - resolved, Negative for Heartburn, Vomiting, Abdominal pain, Hepatitis, Pancreatitis : No history of dysuria, frequency or incontinence,, stones or chronic kidney disease CLOTH SPREADER: Negative for abnormal vaginal bleeding, abnormal vaginal [...] medical decision making as documented above. SIGNATURE: Jeradro Escamilla PA-C PATIENT NAME: Yael Ayers DATE: 12/29/2023 TIME: 11:27 AM PAGER/CONTACT #: documented in this encounter [facility] 12-22-2023 Nurse Note Additional intake questions: Has the patient had fever, nausea, vomiting, diarrhea, constipation, fatigue for > 1 week? Yes, nausea Does the patient have a decreased appetite? No Does patient want to see a Furnace Mechanic Helper? No (yes to any of above refer patient to schedulers for dietitian appointment) ) Does patient have any new or increased numbness or tingling of extremities? No Is patient interested in fertility information? NA Does patient need any prescription refills? No Does patient have an advanced directive in place? No [facility] 12-22-2023 Nurse Note Additional intake questions: Has the patient had fever, nausea, vomiting, diarrhea, constipation, fatigue for > 1 week? Yes, nausea Does the patient have a decreased appetite? No Does patient want to see a Furnace Mechanic Helper? No (yes to any of above refer patient to schedulers for dietitian appointment) ) Does patient have any new or increased numbness or tingling of extremities? No Is patient interested in fertility information? NA Does patient need any prescription refills? No Does patient have an advanced directive in place? No documented in this encounter [facility] 12-22-2023 History of Present illness Narrative Images from the original note were not included. [facility] [place] Department of Breast Surgery [facility] POST OPERATIVE FOLLOW-UP SERVICE DATE: [...] in 3rd trimester. 01/2023 - Delivered baby [place] mass grew in size February 2023 ([facility]) Right breast US showing a 2.2 x 1.7 x 0.9 cm mass at 6:00. 04/11/2023 ([facility])- Right breast US-guided CNBx showed findings consistent [...] which included preparing to see the patient, [id number] patient care, completing clinical documentation, obtaining and/or reviewing separately obtained history, performing a medically appropriate examination, and counseling and educating the patient/family/caregiver. Tete Multani MD FACOG Breast Surgical Oncology & Benign Gynecology [address] [place] [address] Appointment documented in this encounter [facility] 12-22-2023 Note HNO ID: [id number] Author: TETE MULTANI MD Service: ? Author Type: Physician Type: Progress Notes Filed: 12/22/2023 14:55 Note Text: [facility] [place] Department of Breast Surgery [facility] POST OPERATIVE FOLLOW-UP SERVICE DATE: [...] in 3rd trimester. 01/2023 - Delivered baby [place] mass grew in size February 2023 ([facility]) Right breast US showing a 2.2 x 1.7 x 0.9 cm mass at 6:00. 04/11/2023 ([facility])- Right breast US-guided CNBx showed findings consistent [...] or axillary adenopathy. (more content not included)... [facility] 11-08-2023 History and physical note Images from the original note were not included. [facility] [place] Department of Breast Surgery [facility] REASON for TODAY'S VISIT: No [...] in 3rd trimester. 01/2023 - Delivered baby [place] mass grew in size February 2023 ([facility]) Right breast US showing a 2.2 x 1.7 x 0.9 cm mass at 6:00. 04/11/2023 ([facility])- Right breast US-guided CNBx showed findings consistent [...] follow up of 7:00 lesion recommended. 10/11/23 ([facility]) - RIGHT breast US guided CNB at [...] but has not started yet BREAST & CLOTH SPREADER RELATED HISTORY: Prior biopsies: as above Prior surgeries: as above Prior radiation: There is no history of Radiation Therapy. OB History T0 L1 SAB0 IAB0 Ectopic0 Multiple0 Live Births1 Comment: Currently breast feeding Renal Dietitian History LMP: 08/26/2023 (Approximate), Having periods Age at Menarche: 11 Age at First : 11 Age at Menopause: Renal Dietitian History Comments: Sexual Activity: Not Asked; No [...] Swelling Beeswax Other: See Comments CURRENT MEDICATIONS: Cxticqhr-Bi-Phu-Fe-FA tab Take 1 tablet by mouth once [...] . Physical Exam Exam conducted with a fire technician present. Constitutional: General: She is not in [...] Gram Stain No organisms seen Resulting Agency [facility] Susceptibility Organism Antibiotic Method Susceptibility Serratia [...] Specimen Collected: 11/03/23 9:07 PM Performed by: [facility] Last Resulted: 11/06/23 2:34 PM Received From: [facility] Result Received: 11/07/23 10:41 AM No [...] FACOG Breast Surgical Oncology & Benign Gynecology [address] Desk [address] [address] Appointment cc: Narda Faria [address] [facility] [address] Jonnathan Pelayo I spent a total of 55 minutes on the date of the service which included preparing to see the patient, [id number] patient care, completing clinical documentation, obtaining and/or reviewing separately obtained history, performing a medically appropriate examination, and counseling and educating the patient/family/caregiver. [facility] 11-08-2023 History and physical note Images from the original note were not included. [facility] [place] Department of Breast Surgery [facility] REASON for TODAY'S VISIT: No [...] in 3rd trimester. 01/2023 - Delivered baby [place] mass grew in size February 2023 ([facility]) Right breast US showing a 2.2 x 1.7 x 0.9 cm mass at 6:00. 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 OB History T0 L1 SAB0 IAB0 Ectopic0 Multiple0 Live Births1 Comment: Currently breast feeding Renal Dietitian History LMP: 08/26/2023 (Approximate), Having periods Age at Menarche: 11 Age at First : 11 Age at Menopause: Renal Dietitian History Comments: Sexual Activity: Not Asked; No [...] Swelling Beeswax Other: See Comments CURRENT MEDICATIONS: Pdjvyhet-Au-Oiu-Fe-FA tab Take 1 tablet by mouth once [...] . Physical Exam Exam conducted with a fire technician present. Constitutional: General: She is not in [...] Gram Stain No organisms seen Resulting Agency [facility] Susceptibility Organism Antibiotic Method Susceptibility Serratia [...] Specimen Collected: 11/03/23 9:07 PM Performed by: [facility] Last Resulted: 11/06/23 2:34 PM Received From: [facility] Result Received: 11/07/23 10:41 AM No [...] FACOG Breast Surgical Oncology & Benign Gynecology [address] [place] [address] Appointment cc: Narda Faria [address] [place] [address] Jonnathan Pelayo I spent a total of 55 minutes on the date of the service which included preparing to see the patient, uhej-sv-rxec patient care, completing clinical documentation, obtaining and/or reviewing separately obtained history, performing a medically appropriate examination, and counseling and educating the patient/family/caregiver. documented in this encounter [facility] 11-04-2023 Telephone encounter Note I called and [...] worsens over the weekend. Pt stated understanding. [facility] 11-04-2023 Miscellaneous Notes I called and spoke [...] some pain 5. documented in this encounter [facility] 11-04-2023 Telephone encounter Note Pt would like to speak to Reta she stated she was in the hospital last night and was not able attend her appointment this morning she has questions and concerns please, pt is experiencing some pain 5. [facility] 11-03-2023 Emergency department Note HPI Chief Complaint [...] a cyst per patient. Patient had a [place] drain placed which has since fallen out. [...] stable upon discharge. History provided by: Patient Melrude Coma Scale Score: 15 Patient History No past medical history on file. Past Surgical History: Procedure Laterality Date OTHER SURGICAL HISTORY 06/29/2019 No history of surgery OTHER SURGICAL HISTORY 01/18/2020 [place] tooth extraction No family history on file. [...] Patel DO 11/03/232217 documented in this encounter [facility] Work Phone: 11-03-2023 Physician Emergency department [...] history of surgery OTHER SURGICAL HISTORY 01/18/2020 [place] tooth extraction No family history on file. [...] Patel DO 11/03/232132 Shauna Patel DO 11/03/232217 [facility] Work Phone: 11-02-2023 History of Present illness Narrative [facility] Department of Breast Surgical Oncology [facility] BREAST FOLLOW-UP SERVICE DATE: 11/02/2023 [...] 10/14/2023 4:30 PM - Radiology, [place] [facility] RESULT: FINAL REPORT #[id number] - [facility] US BIOPSY BREAST RT ULTRASOUND GUIDED [...] Vegas performed the entire procedure without an special education teaching assistant. Correlation is made to exams dated: [...] Deena sanford/mckinley:10/14/2023 16:29:31 PATHOLOGY REPORT: SURGICAL PATHOLOGY: [id number] Collected 10/11/2023 2:56 PM Component FINAL DIAGNOSIS [...] which included preparing to see the patient, jjqa-ek-bkkl patient care, completing clinical documentation, obtaining and/or reviewing separately obtained history, performing a medically appropriate examination, counseling and educating the patient/family/caregiver, ordering medications, tests, or procedures, communicating with other HCPs (not separately reported), independently interpreting results (not separately reported), communicating results to the patient/family/caregiver, and care coordination (not separately reported). Narda Faria MD documented in this encounter [facility] 11-02-2023 Note HNO ID: [id number] Author: NARDA FARIA MD Service: ? Author Type: Physician Type: Progress Notes Filed: 11/02/2023 13:02 Note Text: [facility] Department of Breast Surgical Oncology [facility] BREAST FOLLOW-UP SERVICE DATE: 11/02/2023 [...] 10/14/2023 4:30 PM - Radiology, [place] [facility] RESULT: FINAL REPORT #[id number] - [facility] US BIOPSY BREAST RT ULTRASOUND GUIDED [...] Vegas performed the entire procedure without an special education teaching assistant. Correlation is made to exams dated: [...] Deena sanford/mckinley:10/14/2023 16:29:31 PATHOLOGY REPORT: SURGICAL PATHOLOGY: [id number] Collected 10/11/2023 2:56 PM Component FINAL DIAGNOSIS [...] consisting in p (more content not included)... [facility] 10-13-2023 Telephone encounter Note Called patient to notify the breast pathology results are benign per Dr. Vegas. Informed patient a 6 month follow up is recommended. Patient verbalized understanding. [facility] Work Phone: 10-13-2023 Miscellaneous Notes Called patient to notify the breast pathology results are benign per Dr. Vegas. Informed patient a 6 month follow up is recommended. Patient verbalized understanding. documented in this encounter [facility] 10-11-2023 Instructions Formatting of th is note [...] SUPPLEMENTAL MATERIAL: Homegoing instructions REFERRAL (RECOMMENDATION): None [facility] 10-11-2023 Miscellaneous Notes AMBULATORY PATIENT EDUCATION RADIOLOGY [...] REFERRAL (RECOMMENDATION): None documented in this encounter [facility] 09-13-2023 Note HNO ID: [id number] Author: NARDA FARIA MD Service: ? Author Type: Physician Type: Progress Notes Filed: 09/13/2023 17:28 Note Text: [facility] Department of Breast Surgical Oncology [facility] BREAST FOLLOW-UP SERVICE DATE: 09/13/2023 [...] which included preparing to see the patient, xaot-je-ctku patient care, completing clinical documentation, obtaining and/or reviewing separately obtained history, performing a medically appropriate examination, counseling and educating the patient/family/caregiver, ordering medications, tests, or procedures, communicating with other HCPs (not separately reported), independently interpreting results (not separately reported), communicating results to the patient/family/caregiver, and care coordination (not separately reported). Narda Faria MD [facility] 09-13-2023 History of Present illness Narrative [facility] Department of Breast Surgical Oncology [facility] BREAST FOLLOW-UP SERVICE DATE: 09/13/2023 [...] which included preparing to see the patient, jvyz-hy-itgb patient care, completing clinical documentation, obtaining and/or reviewing separately obtained history, performing a medically appropriate examination, counseling and educating the patient/family/caregiver, ordering medications, tests, or procedures, communicating with other HCPs (not separately reported), independently interpreting results (not separately reported), communicating results to the patient/family/caregiver, and care coordination (not separately reported). Narda Faria MD documented in this encounter [facility] 06-14-2023 Note HNO ID: [id number] Author: NARDA FARIA MD Service: ? Author [...] which included preparing to see the patient, alhb-zx-ehbh patient care, completing clinical documentation, obtaining and/or reviewing separately obtained history, performing a medically appropriate examination, counseling and educating the patient/family/caregiver, ordering medications, tests, or procedures, communicating with other HCPs (not separately reported), independently interpreting results (not separately reported), and communicating results to the patient/family/caregiver. Narda Faria MD [facility] Evaluation note No assessment inform ation available [facility] Work Phone: Evaluation note Diagnosis Mass of right breast, unspecified quadrant- Primary [facility] [place] Diagnosis Mass of lower outer quadrant of right breast- Primary [facility] [place] [facility] Diagnosis Breast disorder- Primary Unspecified breast disorder [facility] [place] [facility] Diagnosis Mass of right breast, unspecified quadrant- Primary [facility] [place] [facility]* Diagnosis Lactating adenoma of breast [facility] Diagnosis Breast disorder Unspecified breast disorder [facility] [place] Diagnosis Breast abscess- Primary Inflammatory disease of breast Breast abscess Inflammatory disease of breast [facility] [place] [facility] Diagnosis Mass of right breast, unspecified quadrant- Primary [facility] [place] [facility] Diagnosis Breast abscess- Primary Inflammatory disease of breast [facility] [place] [facility]* Diagnosis Breast abscess Inflammatory disease of breast documented in this encounter [facility] note* Diagnosis Cellulitis of right breast- Primary documented in this encounter [facility] Work Phone: [facility] [place]* Diagnosis Mass of lower outer quadrant of right breast- Primary Abscess of right breast Inflammatory disease of breast documented in this encounter [facility] note* Diagnosis Abscess of right breast- Primary Inflammatory disease of breast documented in this encounter [facility] note* Diagnosis Mass of lower outer quadrant of right breast- Primary Obesity, Class I, BMI 30-34.9 Obesity, unspecified documented in this encounter [facility] note* Diagnosis Mass of right breast, unspecified quadrant- Primary Pre-op testing Preoperative examination, unspecified Mass of right breast, unspecified quadrant documented in this encounter [facility] note* Diagnosis Preop examination- Primary Preoperative examination, unspecified History of syncope Other specified personal history presenting hazards to health Mild intermittent asthma without complication Unspecified asthma Obesity, Class I, BMI 30-34.9 Obesity, unspecified Anxiety and depression Dysthymic disorder Mass of right breast, unspecified quadrant [facility] [place] [facility]* Diagnosis Mass of lower outer quadrant of right breast- Primary [facility] [place] [facility]* Diagnosis Breast pain- Primary Mastodynia Mass of lower inner quadrant of right breast [facility] [place] [facility]* Diagnosis Breast pain- Primary Mastodynia [facility] [place] [facility]* Diagnosis Breast pain Mastodynia PCOS (polycystic ovarian syndrome) Polycystic ovaries Nipple discharge Other sign and symptom in breast Weight gain Other symptoms concerning nutrition, metabolism, and development [facility] [place] [facility] Diagnosis Breast pain- Primary Mastodynia [facility] [place] [facility]* Diagnosis [facility] pain [facility]odynia [facility] Diagnosis Missed menses , unspecified gestational age Encounter for supervision of normal first in first trimester documented in this encounter [facility]* Diagnosis First trimester state, incidental 11 weeks gestation of [facility] Attachments The following attachments cannot be sent through Care Everywhere. * [facility] Reason for referral (narrative)* Diagnostic Procedure Only (Routine) - Authorized Specialty Diagnoses / Procedures Referred By Lux t Referred To Contact [facility] Diagnoses Mass of right breast, unspecified quadrant Procedures US BREAST LTD RIGHT US BREAST UNI REAL TIME WITH IMAGE LIMITED Narda Faria MD [address] [place] [address] [facility] [address] [place], [place] [id number] Referral ID Status Reason Start Date Expiration Date Visits Requested Visits Authorized [id number] Authorized Auto-Generat ed Referral 05/29/2023 1 1 [facility] for referral (narrative)* Diagnostic Procedure Only (Routine) - Authorized Specialty Diagnoses / Procedures Referred By Lux bentley Referred To Contact [facility] Diagnoses Mass of lower outer quadrant of right breast Procedures US BREAST LTD RIGHT US BREAST UNI REAL TIME WITH IMAGE LIMITED Narda Faria MD [address] [place] [address] [facility] [address] [place], [place] [phone] Referral ID Status Reason Start Date Expiration Date Visits Requested Visits Authorized [id number] Authorized Auto-Generat ed Referral 06/17/2023 06/15/2024 1 1 [facility] for referral (narrative)* Diagnostic Procedure Only (Routine) - Authorized Specialty Diagnoses / Procedures Referred By Lux t Referred To Contact [facility] Diagnoses Breast disorder Procedures US BIOPSY BREAST RIGHT BX BREAST W/DEVICE 1ST LESION ULTRASOUND GUID Yolanda Angela MD [address] [place] [address] [facility] [address] [place] [phone] Referral ID Status Reason Start Date Expiration Date Visits Requested Visits Authorized [id number] Authorized Auto-Generat ed Referral 09/13/2023 10/12/2024 1 1 [facility] for referral (narrative)* Diagnostic Procedure Only (Routine) - Closed Specialty Diagnoses / Procedures Referred By Contac t Referred To Contact [facility] Diagnoses Lactating adenoma of breast Procedures US BREAST LTD RIGHT US BREAST UNI REAL TIME WITH IMAGE LIMITED Narda Faria MD [address] [place], [place] [phone] [facility] [address] [place] [phone] Referral ID Status Reason Start Date Expiration Date V isits Requested Visits Authorized [id number] Closed Auto-Generate d Referral 09/13/2023 07/13/2024 1 1 [facility] for referral (narrative)* Diagnostic Procedure Only (Routine) - Closed Specialty Diagnoses / Procedures Referred By Contac t Referred To Contact [facility] Diagnoses Breast disorder Procedures US BIOPSY BREAST RIGHT BX BREAST W/DEVICE 1ST LESION ULTRASOUND GUID Yolanda Angela MD [address] [address] [facility] [address] [place] [phone] Referral ID Status Reason Start Date Expiration Date V isits Requested Visits Authorized [id number] Closed Auto-Generate d Referral 09/13/2023 10/12/2024 1 1 [facility] for referral (narrative)* Diagnostic Procedure Only (Routine) - Closed Specialty Diagnoses / Procedures Referred By Contac t Referred To Contact [facility] Diagnoses Breast abscess Procedures US BREAST LTD RIGHT US BREAST UNI REAL TIME WITH IMAGE LIMITED Narda Faria MD [address] [phone] [facility] [address] [place] [address] Referral ID Status Reason Start Date Expiration Date V isits Requested Visits Authorized [id number] Closed Auto-Generate d Referral 11/02/2023 12/01/2024 1 1 [facility] for referral (narrative)* Diagnostic Procedure Only (Routine) - Closed Specialty Diagnoses / Procedures Referred By Contac t Referred To Contact [facility] Diagnoses Breast abscess Procedures US BREAST LTD RIGHT US BREAST UNI REAL TIME WITH IMAGE LIMITED Narda Faria MD [facility] [place] [address] [facility] [address] [place] [phone] Referral ID Status Reason Start Date Expiration Date V isits Requested Visits Authorized [id number] Closed Auto-Generate d Referral 11/02/2023 12/01/2024 1 1 T [facility] for referral (narrative)* Diagnostic Procedure Only (Routine) - Pending Review Specialty Diagnoses / Procedures Referred By Contac t Referred To Contact [facility] Diagnoses Abscess of right breast Procedures US BREAST LTD RIGHT US BREAST UNI REAL TIME WITH IMAGE LIMITED Tete Multani MD [address] [place] [address] [facility] [address] [place] [phone] Referral ID Status Reason Start Date Expiration Date Visits Requested Visits Authorized [id number] Pending Review Auto-Generat ed Referral 11/08/2023 12/07/2024 1 1 T [facility] for referral (narrative)* Diagnostic Procedure Only (Routine) - Authorized Specialty Diagnoses / Procedures Referred By Contac t Referred To Contact [facility] Diagnoses Breast pain Procedures US BREAST LTD RIGHT US BREAST UNI REAL TIME WITH IMAGE LIMITED Tete Multani MD [address] [phone] [facility] [address] [place] [phone] Referral ID Status Reason Start Date Expiration Date Visits Requested Visits Authorized [id number] Authorized Auto-Generat ed Referral 06/10/2025 1 1 [facility] for referral (narrative)* Diagnostic Procedure Only (Routine) - Closed Specialty Diagnoses / Procedures Referred By Contac t Referred To Contact [facility] Diagnoses Breast pain Procedures US BREAST LTD RIGHT US BREAST UNI REAL TIME WITH IMAGE LIMITED Tete Multani MD [address] [place] [address] [facility] [address] [place], [place] [phone] Referral ID Status Reason Start Date Expiration Date V isits Requested Visits Authorized [id number] Closed Auto-Generate d Referral 05/11/2024 06/10/2025 1 1 [facility] for visit Narrative* Diagnostic Procedure Only (Routine) - Closed Specialty Diagnoses / Procedures Referred By Contac t Referred To Contact [facility] Diagnoses Lactating adenoma of breast Procedures US BREAST LTD RIGHT US BREAST UNI REAL TIME WITH IMAGE LIMITED Narda Faria MD [address] [place] [address] [facility] [address] [place] [phone] Referral ID Status Reason Start Date Expiration Date V isits Requested Visits Authorized [id number] Closed Auto-Generate d Referral 09/13/2023 07/13/2024 1 1 [facility] for visit Narrative* Diagnostic Procedure Only (Routine) - Closed Specialty Diagnoses / Procedures Referred By Contac t Referred To Contact [facility] Diagnoses Breast disorder Procedures US BIOPSY BREAST RIGHT BX BREAST W/DEVICE 1ST LESION ULTRASOUND GUID Yolanda Angela MD [address] [place], [place] [phone] [facility] [address] [place] [phone] Referral ID Status Reason Start Date Expiration Date V isits Requested Visits Authorized [id number] Closed Auto-Generate d Referral 09/13/2023 10/12/2024 1 1 [facility] for visit Narrative* Diagnostic Procedure Only (Routine) - Closed Specialty Diagnoses / Procedures Referred By Contac t Referred To Contact [facility] Diagnoses Breast abscess Procedures US BREAST LTD RIGHT US BREAST UNI REAL TIME WITH IMAGE LIMITED Narda Faria MD [address] [place] [address] [facility] [address] [place] [phone] Referral ID Status Reason Start Date Expiration Date V isits Requested Visits Authorized [id number] Closed Auto-Generate d Referral 11/02/2023 12/01/2024 1 1 [facility] for visit Narrative* Diagnostic Procedure Only (Routine) - Closed Specialty Diagnoses / Procedures Referred By Contac t Referred To Contact [facility] Diagnoses Breast pain Procedures US BREAST LTD RIGHT US BREAST UNI REAL TIME WITH IMAGE LIMITED Tete Multani MD [address] [place] [phone] [facility] [address] [place] [phone] Referral ID Status Reason Start Date Expiration Date V isits Requested Visits Authorized [id number] Closed Auto-Generate d Referral 05/11/2024 06/10/2025 1 1 [facility] Summary Purpose Family History Grandmother Name Dates [...] DATE CREATED AUTHOR AUTHOR'S ORGANIZ ATION 10/07/2018 [place] [facility] DATE CREATED AUTHOR AUTHOR'S ORGANIZ ATION 07/20/2019 [facility] DATE CREATED AUTHOR AUTHOR'S ORGANIZ ATION 02/14/2020 [facility] DATE CREATED AUTHOR AUTHOR'S ORGANIZ ATION 03/21/2020 [facility] DATE CREATED AUTHOR AUTHOR'S ORGANIZ ATION 04/29/2021 [facility] DATE CREATED AUTHOR AUTHOR'S ORGANIZ ATION 10/01/2022 [facility] DATE CREATED AUTHOR AUTHOR'S ORGANIZ ATION 04/17/2023 [facility] DATE CREATED AUTHOR AUTHOR'S ORGANIZ ATION 11/10/2023 [facility] DATE CREATED AUTHOR AUTHOR'S ORGANIZ ATION 01/02/2024 [facility] DATE CREATED AUTHOR AUTHOR'S ORGANIZ ATION 05/21/2024 [facility] DATE CREATED AUTHOR AUTHOR'S ORGANIZ ATION 07/14/2024 [facility] dical Specialists EPIC Care Teams (unrecognized sec tion and content) Team Status: Inactive Member Role Status Dates Deshawn Rose Attending Provider Active Maintenance Superintendent Relationship Specialty Start Date End Date Jonnathan Pelayo [address] [place] [address] PCP - General Pediatrics 04/01/14 Deshawn Rose DO [address] [place] [address] [address] [place], [place] [phone] Referring SOFTWARE LICENSING SPECIALIST 05/07/23 Maintenance Superintendent Relationship Specialty Start Date End Date Jonnathan Pelayo [address] [place] [phone] PCP - General Pediatrics 04/01/14 Deshawn Rose R, DO [address] [place] [address] Referring SOFTWARE LICENSING SPECIALIST 05/07/23 Maintenance Superintendent Relationship Specialty Start Date End Date Jonnathan Pelayo [address] [place] [phone] PCP - General Pediatrics 04/01/14 Deshawn Rose R, DO [address] [facility] [place] [address] Referring SOFTWARE LICENSING SPECIALIST 05/07/23 Maintenance Superintendent Relationship Specialty Start Date End Date Jonnathan Pelayo [address] [place] [phone] PCP - General Pediatrics 04/01/14 Deshawn Rose R, DO [address] [place] [address] Referring Ladle Operator 05/07/23 Maintenance Superintendent Relationship Specialty Start Date End Date Jonnathan Pelayo [address] [place] [phone] PCP - General Pediatrics 04/01/14 Deshawn Rose R, DO [address] [facility] [address] Referring Ladle Operator 05/07/23 Maintenance Superintendent Relationship Specialty Start Date End Date Jonnathan Pelayo [address] [place] [address] PCP - General Pediatrics 04/01/14 Deshawn Rose, [facility] [place] [address] Referring Ladle Operator 05/07/23 Maintenance Superintendent Relationship Specialty Start Date End Date Jonnathan Pelayo [address] [place] [phone] PCP - General Pediatrics 04/01/14 Deshawn Rose, [facility] [place] [address] Referring Ladle Operator 05/07/23 Maintenance Superintendent Relationship Specialty Start Date End Date Jonnathan Pelayo [address] [place] [address] PCP - General Pediatrics 04/01/14 Deshawn Rose, [address] [place], [place] [address] [address] Referring Ladle Operator 05/07/23 Maintenance Superintendent Relationship Specialty Start Date End Date Jonnathan Pelayo [address] [place] [phone] PCP - General Pediatrics 04/01/14 Deshawn Rose, DO [address] [place] [address] Referring Ladle Operator 05/07/23 Maintenance Superintendent Relationship Specialty Start Date End Date Jonnathan Pelayo [address] [place] [phone] PCP - General Pediatrics 04/01/14 Deshawn Rose DO [address] [facility] [address] Referring Ladle Operator 05/07/23 Maintenance Superintendent Relationship Specialty Start Date End Date Jonnathan Pelayo [address] [place] [phone] PCP - General Pediatrics 04/01/14 Deshawn Rose DO [address] [facility] [place] [address] Referring Ladle Operator 05/07/23 Maintenance Superintendent Relationship Specialty Start Date End Date Generic Provider, No Assigned Pcp, [place] [address] PCP - General Airport Guide 11/03/23 Maintenance Superintendent Relationship Specialty Start Date End Date Jonnathan Pelayo [address] [place] [place] [phone] PCP - General Pediatrics 04/01/14 Deshawn Rose DO [address] [facility] [address] Referring Ladle Operator 05/07/23 Maintenance Superintendent Relationship Specialty Start Date End Date Jonnathan Pelayo [address] [place] [phone] PCP - General Pediatrics 04/01/14 Deshawn Rose DO [address] [facility] [address] Referring Ladle Operator 05/07/23 Maintenance Superintendent Relationship Specialty Start Date End Date Jonnathan Pelayo [facility] [place] [address] PCP - General Pediatrics 04/01/14 Deshawn Rose R, DO [address] [facility] [place] [address] Referring Ladle Operator 05/07/23 Maintenance Superintendent Relationship Specialty Start Date End Date Deshawn Rose, DO [address] [facility] [address] Referring Ladle Operator 05/07/23 Maintenance Superintendent Relationship Specialty Start Date End Date Deshawn Rose R, DO [address] [place] [address] Referring Ladle Operator 05/07/23 Maintenance Superintendent Relationship Specialty Start Date End Date Deshawn Rose, DO [address] [place], [place] [address] [address] Referring Ladle Operator 05/07/23 Maintenance Superintendent Relationship Specialty Start Date End Date Deshawn Rose R, DO [address] [place], [place] [address] [address] Referring Ladle Operator 05/07/23 Maintenance Superintendent Relationship Specialty Start Date End Date Deshawn Rose, DO [address] [place] [address] Referring Ladle Operator 12/9/23 Goals (unrecognized section and content) Goals may be documented in a n alternate section Source Comments (unrecognize d section and content) In the event this informatio n is protected by the Federal Confidentiality of Alcohol and Drug Abuse Patient Records regulations: The Federal rules restrict any use of the information to criminally investigate or prosecute any alcohol or drug abuse patient.[facility] the event this information is protected by the Federal Confidentiality of Alcohol and Drug Abuse Patient Records regulations: The Federal rules restrict any use of the information to criminally investigate or prosecute any alcohol or drug abuse patient.[facility] the event this information is protected by the Federal Confidentiality of Alcohol and Drug Abuse Patient Records regulations: The Federal rules restrict any use of the information to criminally investigate or prosecute any alcohol or drug abuse patient.[facility] the event this information is protected by the Federal Confidentiality of Alcohol and Drug Abuse Patient Records regulations: The Federal rules restrict any use of the information to criminally investigate or prosecute any alcohol or drug abuse patient.[facility] the event this information is protected by the Federal Confidentiality of Alcohol and Drug Abuse Patient Records regulations: The Federal rules restrict any use of the information to criminally investigate or prosecute any alcohol or drug abuse patient.[facility] the event this information is protected by the Federal Confidentiality of Alcohol and Drug Abuse Patient Records regulations: The Federal rules restrict any use of the information to criminally investigate or prosecute any alcohol or drug abuse patient.[facility] the event this information is protected by the Federal Confidentiality of Alcohol and Drug Abuse Patient Records regulations: The Federal rules restrict any use of the information to criminally investigate or prosecute any alcohol or drug abuse patient.[facility] the event this information is protected by the Federal Confidentiality of Alcohol and Drug Abuse Patient Records regulations: The Federal rules restrict any use of the information to criminally investigate or prosecute any alcohol or drug abuse patient.[facility] the event this information is protected by the Federal Confidentiality of Alcohol and Drug Abuse Patient Records regulations: The Federal rules restrict any use of the information to criminally investigate or prosecute any alcohol or drug abuse patient.[facility] the event this information is protected by the Federal Confidentiality of Alcohol and Drug Abuse Patient Records regulations: The Federal rules restrict any use of the information to criminally investigate or prosecute any alcohol or drug abuse patient.[facility] the event this information is protected by the Federal Confidentiality of Alcohol and Drug Abuse Patient Records regulations: The Federal rules restrict any use of the information to criminally investigate or prosecute any alcohol or drug abuse patient.[facility] the event this information is protected by the Federal Confidentiality of Alcohol and Drug Abuse Patient Records regulations: The Federal rules restrict any use of the information to criminally investigate or prosecute any alcohol or drug abuse patient.[facility] the event this information is protected by the Federal Confidentiality of Alcohol and Drug Abuse Patient Records regulations: The Federal rules restrict any use of the information to criminally investigate or prosecute any alcohol or drug abuse patient.[facility] the event this information is protected by the Federal Confidentiality of Alcohol and Drug Abuse Patient Records regulations: The Federal rules restrict any use of the information to criminally investigate or prosecute any alcohol or drug abuse patient.[facility] the event this information is protected by the Federal Confidentiality of Alcohol and Drug Abuse Patient Records regulations: The Federal rules restrict any use of the information to criminally investigate or prosecute any alcohol or drug abuse patient.[facility] the event this information is protected by the Federal Confidentiality of Alcohol and Drug Abuse Patient Records regulations: The Federal rules restrict any use of the information to criminally investigate or prosecute any alcohol or drug abuse patient.[facility] the event this information is protected by the Federal Confidentiality of Alcohol and Drug Abuse Patient Records regulations: The Federal rules restrict any use of the information to criminally investigate or prosecute any alcohol or drug abuse patient.[facility] the event this information is protected by the Federal Confidentiality of Alcohol and Drug Abuse Patient Records regulations: The Federal rules restrict any use of the information to criminally investigate or prosecute any alcohol or drug abuse patient.[facility]stown[facility] the event this information is protected by the Federal Confidentiality of Alcohol and Drug Abuse Patient Records regulations: The Federal rules restrict any use of the information to criminally investigate or prosecute any alcohol or drug abuse patient.[facility]stownIn the event this information is protected by the Federal Confidentiality of Alcohol and Drug Abuse Patient Records regulations: The Federal rules restrict any use of the information to criminally investigate or prosecute any alcohol or drug abuse patient.[facility]stownIn the event this information is protected by the Federal Confidentiality of Alcohol and Drug Abuse Patient Records regulations: The Federal rules restrict any use of the information to criminally investigate or prosecute any alcohol or drug abuse patient.[facility]In the event this information is protected by the Federal Confidentiality of Alcohol and Drug Abuse Patient Records regulations: The Federal rules restrict any use of the information to criminally investigate or prosecute any alcohol or drug abuse patient.[facility] the event this information is protected by the Federal Confidentiality of Alcohol and Drug Abuse Patient Records regulations: The Federal rules restrict any use of the information to criminally investigate or prosecute any alcohol or drug abuse patient.[facility] Reason for Visit (unrecogniz ed section and [...] (Given - Provid er: Cookie Diggs RN) [id number] (Zosyn) IV 3.375 g (COMPLETED) 3.375 g, [...] BE BASED ON THE PRIMARY CLINICAL RECORDS. [email or web address] provides no warranty or guarantee of the accuracy or completeness of information in this document.
== END 2024-08-14 21:30 | disposition home or self-care (01) ==
LOC: LAB 21:29
PROVIDERS: Visit Provider Obstetrics & Gynecology
DX: Z01.419 Encounter for gynecological examination (general) (routine) without abnormal findings (principal)
CPT/HCPCS: 88175

== ENCOUNTER 2024-11-09 13:54 | Outpatient (OUT) | payer BC, SELFPAY ==
[2024-11-09 15:13] LABS: Basophils Percent Auto 0.3 % (0.2-2.0); Eosinophils Absolute Auto 0.1 10^3/uL (0.0-0.7); Eosinophils Percent Auto 0.5 % (0.9-7.0); Hematocrit 37.4 % (36.0-48.0); Hemoglobin 12.3 g/dL (12.0-16.0); Immature Granulocytes Abs Auto 0.08 10^3/uL (0.00-0.03); Immature Granulocytes Pct Auto 0.7 % (0.0-0.5); Lymphocytes Percent Auto 17.2 % (20.5-60.0); Mean Corpuscular HGB Conc 32.9 g/dL (29.9-35.2); Mean Corpuscular Volume 85.2 fL (81.0-99.0); Mean Platelet Volume 10.5 fL (9.5-13.5); Monocytes Absolute Auto 1.2 10^3/uL (0.3-0.8); Monocytes Percent Auto 9.8 % (1.7-12.0); Neutrophils Absolute Auto 8.4 10^3/uL (1.4-6.5); Neutrophils Percent Auto 71.5 % (43.0-75.0); Platelet Count 278 10^3/uL (150-450); Red Blood Count 4.39 10^6/uL (4.20-5.40); Red Cell Distribution Width 13.2 % (11.0-15.0); White Blood Count 11.8 10^3/uL (4.0-11.0)
[2024-11-09 15:18] LABS: Glucose 1 Hour 75 mg/dL (<130)
== END 2024-11-09 13:55 | disposition home or self-care (01) ==
PROVIDERS: Visit Provider Obstetrics & Gynecology
DX: Z13.1 Encounter for screening for diabetes mellitus (principal)
CPT/HCPCS: 36415; 82950; 85025

== ENCOUNTER 2024-11-26 19:13 | Outpatient (OUT) | payer BC, SELFPAY ==
--- OUTSIDE RECORDS SUMMARY | 2024-11-13 13:50 | XMS_ITS | Encounter Summary ---
Author Organization [facility] Address [address] [facility] [place] [address] Care Team Providers Care Machine Splitter Name Role Phone Unavailable Primary Care Provider Unavailabl e Reason for Visit * Reason Comments Routine Visit Encounter Details Date Type Department Care Team (Latest Contact Info) Description 11/13/2024 1:50 PM EDT Routine [facility] [address] [place] [address] Deshawn Rose, DO [address] [facility] [address] [place], [place] [address] size inconsistent with dates ([facility]); 28 weeks gestation of ([facility]) Social History Tobacco Use Types Packs/Day Years Used Date Smoking Tobacco: Never Smokeless Tobacco: Never Alcohol Use Standard Drinks/Week Comments Never 0 (1 standard drink = 0.6 oz pur e alcohol) Estimated Date of Delivery Comme nts Yes 01/30/2025 Based on Ultraso und Sex and Gender Information Value Date Recorded Sex Assigned at Not on file Legal Sex Female 11:47 PM EDT Gender Identity Female 11/11/2022 1:56 PM EDT Sexual Orientation Not on file documented as of this encounter Last Filed Vital Signs Vital Sign Reading Time Taken Comments Blood Pressure 116/82 11/13/2024 2:03 PM EDT Pulse - - Temperature - - Respiratory Rate - - Oxygen Saturation - - Inhaled Oxygen Concentration - - Weight 91.7 kg (202 lb 4 oz) 11/13/2024 2:03 PM EDT Height - - Body Mass Index 34.72 05/02/2023 2:42 PM EST documented in this encounter Progress Notes * Litzy Trevino, JOY OPERATOR - 11/13/2024 1:50 PM EDT Reason for Appointment: Patient ID: Yael Suh is a 24 y.o. female who presents for Routine Visit Patient presents today for Return OB appointment. MEDICATIONS Current Outpatient Medications Medication Instructions buPROPion (WELLBUTRIN) 150 mg, Oral, Daily citalopram (CELEXA) 20 mg, Oral, Daily ALLERGIES Allergies Allergen Reactions Bee Venom Swelling [...] nursing note reviewed. Exam conducted with a slotter operator helper present. Vitals: Estimated body mass index is 34.72 kg/m?? as calculated from the following: Height as of 05/02/23: 5' 4 . Weight as of this encounter: 202 lb 4 oz. BP: 116/82 Patient's last menstrual period was 04/15/2024. ASSESSMENT & PLAN ICD-10-CM 1. size inconsistent with dates ([facility]) O26.849 US OB follow up transabdominal approach 2. 28 weeks gestation of ([facility]) Z3A.28 Return OB: Patient presents today for a routine obstetrics appointment. Patient is currently 28w6d . Patient states she is doing well but has complaints of being tired due to current . Patient has verbalizes frequent movement. labor precautions was discussed/given and patient was instructed to perform kick counts three times a day. Orders Placed This Encounter Procedures US OB follow up transabdominal approach Follow Up: Patient is to return to office in 2 week for routine OB appointment. Documented by Litzy Trevino LPN on behalf of: Deshawn Rose DO documented in this encounter Plan of Treatment Upcoming Encounters Date Type Department Care Team (Late st Contact Info) Description 11/28/2024 1:20 PM EDT Routine [facility] [address] [place] [id number] Deshawn Rose DO [address] [place] [address] Scheduled Orders Name Type Priority Associated Diagnoses Orde r Schedule US OB follow up transabdominal approach Imaging Routine size inconsistent with dates ([facility]) Expected: 11/13/2024, Expires: 03/15/2025 documented as of this encounter Visit Diagnoses Diagnosis size inconsistent with dates ([facility]) 28 weeks gestation of ([facility]) documented in this encounter
--- NOTE | 2024-11-26 19:15 | US_ITS ---
The [address] [address] Patient Name: JONG AYERS MRN: [id number] date: 2000 Sex: F Assigned Patient Location: Current Patient Location: Accession/Order Number: [id number] Exam Date: 11/27/2024 08:43 Report Date: 11/27/2024 08:48 At the request of: DEMETRICE JEAN-BAPTISTE DO Procedure: US OB growth ULTRASOUND OB GROWTH COMPARISON: 06/14/2024 CLINICAL DATA: size and consistent with dates. There is a single live intrauterine gestation in cephalic presentation. There is cardiac and somatic activity with heart rate of 147 beats per minutes. The amniotic fluid index measures 16.3 cm which is in normal range. The following measurements were obtained: Biparietal diameter 8.3 cm 33 weeks 1 day 95% Head circumference 29.9 cm 33 weeks 1 day 81% Abdominal circumference 27.7 cm 31 weeks 5 days 77% Femur length 5.8 cm 30 weeks 2 days 24% The composite ultrasound age based these measurements is 32 weeks 1 day +/- 2 weeks 2 days. The estimated date of delivery is 01/20/2025. The estimated weight is 3 lbs. 15 oz. +/- 9 oz (68%). US/US OB growth IMPRESSION: SINGLE LIVE INTRAUTERINE GESTATION WITH ULTRASOUND AGE OF 32 WEEKS 1 DAY. THIS IS WITHIN THE UPPER LIMITS OF EXPECTED INTERVAL GROWTH SINCE THE PRIOR. Impression dictated by: Litzy Nguyen M.D. 11/27/2024 8:48 AM Dictation Location: [place] [address] Electronically authenticated by: [id number] Y Date: 11/27/2024 08:48
--- OUTSIDE RECORDS SUMMARY | 2024-11-26 19:15 | XMS_ITS | Encounter Summary ---
Author Organization [facility] Address [address] [facility] [place] [address] Care Team Providers Care Director Smb Sales Name Role Phone Unavailable Primary Care Provider Unavailabl e Encounter Details Date Type Department Care Team (Late st Contact Info) Description 02/09/2024 Abstract [facility] [address] [place] [address] Deshawn Rose DO [facility] [address] [place], [place] [address] Social History Tobacco Use Types Packs/Day Years Used Date Smoking Tobacco: Never Smokeless Tobacco: Never Alcohol Use Standard Drinks/Week Comments Never 0 (1 standard drink = 0.6 oz pur e alcohol) Comments Unknown Sex and Gender Information Value Date Recorded Sex Assigned at Not on file Legal Sex Female 11:47 PM EDT Gender Identity Female 11/11/2022 1:56 PM EDT Sexual Orientation Not on file documented as of this encounter Plan of Treatment Upcoming Encounters Date Type Department Care Team (Late st Contact Info) Description 11/28/2024 1:20 PM EDT Routine [facility] [address] [place] [address] Deshawn Rose DO [facility] [place], [place] [id number] documented as of this encounter Visit Diagnoses Not on filedocumented in this encounter
--- OUTSIDE RECORDS SUMMARY | 2024-11-26 19:15 | XMS_ITS | Encounter Summary ---
Author Organization [facility] Address [address] [facility] [place] [address] Care Team Providers Care Treasury Specialist Name Role Phone Unavailable Primary Care Provider Unavailabl e Encounter Details Date Type Department Care Team (Late st Contact Info) Description 11/13/2024 Bamboo flowsheet [facility] OB [address] [place] [place] [address] Deshawn Rose, [address] [place], [facility] Social History Tobacco Use Types Packs/Day Years [...] PM EDT Routine [facility] [address] [place] [address] Deshawn Rose, [facility] [place], [facility] documented as of this encounter Visit Diagnoses Not on filedocumented in this encounter
--- OUTSIDE RECORDS SUMMARY | 2024-11-26 19:15 | XMS_ITS | Encounter Summary ---
Author Organization [facility] Address [address] [place] [address] Care Team Providers Care Floor Sanding Machine Operator Name Role Phone Ascencion Pelayo Primary Care Provider [phone] Deshawn Rose DO Unavailable [phone] Source Comments In the event this information is protected by the Federal Confidentiality of Alcohol and Drug AbusePatient Records regulations: The Federal rules restrict any use of the information to criminally investigate or prosecute any alcohol or drug abuse patient.[facility] Encounter Details Date Type Department Care Team (Late st Contact Info) Description 12/23/2023 Patient Msg Pre Anesthesia [address] [place] [address] Provider, [facility] Appointment Social History Tobacco Use Types Packs/Day Years Used Date Smoking Tobacco: Former Cigarettes 0.5 3 2 015 - 2017 Alcohol Use Standard Drinks/Week Comments No 0 (1 standard drink = 0.6 oz pur e alcohol) Rarely Area Deprivation Index Answer Date Elias rded National Score (1-100), lower number is lower ri sk 45 05/17/2023 State Score (1-10), lower number is lower risk 2 05/17/2023 Data from: https://www.neighborhoodatlas.[facility]/. 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 Answer Date of Assessment Author No 05/13/2014 12:35 PM EST Gisselle Butler, SUPERINTENDENT STATIONS * Are you blind or do you have serious difficulty seeing, even when wearing glasses? Answer Date of Assessment Author No 05/13/2014 12:35 PM EST Gisselle Butler, SUPERINTENDENT STATIONS * Do you have serious difficulty walking or climbing stairs? Answer Date of Assessment Author No 05/13/2014 12:35 PM EST Gisselle Butler, SUPERINTENDENT STATIONS * Do you have difficulty dressing or bathing? Answer Date of Assessment Author No 05/13/2014 12:35 PM EST Gisselle Butler, SUPERINTENDENT STATIONS * Because of a physical, mental, or emotional condition, do you have difficulty doing errands alone such as visiting a doctor's office or shopping? Answer Date of Assessment Author No 05/13/2014 12:35 PM EST Gisselle Butler, SUPERINTENDENT STATIONS documented as of this encounter Mental Status * Because of a physical, mental, or emotional condition, do you have serious difficulty concentrating, remembering, or making decisions? Answer Entry Date Author No 05/13/2014 12:35 PM EST Gisselle Butler, SUPERINTENDENT STATIONS documented in this encounter Plan of Treatment Not on file documented as of this encounter Visit Diagnoses Not on filedocumented in this encounter Care Teams Floor Sanding Machine Operator Relationship Specialty Start Date End Date Ascencion Pelayo [facility] [place] [address] PCP - General Pediatrics 04/01/14 12/27/23 Deshawn Rose DO [address] [place] [address] [place] [address] Referring Mortgage Loan Reviewer 05/07/23 documented as of this encounter
--- OUTSIDE RECORDS SUMMARY | 2024-11-26 19:15 | XMS_ITS | Encounter Summary ---
Author Organization [facility] Address [address] [place] [address] Care Team Providers Care Associate Professor Computer Science Name Role Phone Deshawn Rose DO Unavailable [phone] Source Comments In the event this information is protected by the Federal Confidentiality of Alcohol and Drug AbusePatient Records regulations: The Federal rules restrict any use of the information to criminally investigate or prosecute any alcohol or drug abuse patient.[facility] Reason for Visit * Reason Comments Refill Request Encounter Details Date Type Department Care Team (Late st Contact Info) Description 01/08/2024 Refill [facility] [address] [place] [id number] Salma Multani MD [address] [place] [address] Refill Request Social History Tobacco Use Types Packs/Day Years Used Date Smoking Tobacco: Former Cigarettes 0.5 3 2 015 - 2017 Alcohol Use Standard Drinks/Week Comments Yes 0 (1 standard drink = 0.6 oz pur e alcohol) Rarely Area Deprivation Index Answer Date Elias rded National Score (1-100), lower number is lower ri sk 45 05/17/2023 State Score (1-10), lower number is lower risk 2 05/17/2023 Data from: https://www.neighborhoodatlas.medicine.[facility]/. Last address used for calculation [address] [...] Author No 05/13/2014 12:35 PM EST Gisselle Butler LPN * Are you blind or do you have serious difficulty seeing, even when wearing glasses? Answer Date of Assessment Author No 05/13/2014 12:35 PM Gisselle Alvarez LPN * Do you have serious difficulty walking or climbing stairs? Answer Date of Assessment Author No 05/13/2014 12:35 PM EST Gisselle Butler LPN * Do you have difficulty dressing or bathing? Answer Date of Assessment Author No 05/13/2014 12:35 PM EST Gisselle Butler LPN * Because of a physical, mental, or emotional condition, do you have difficulty doing errands alone such as visiting a doctor's office or shopping? Answer Date of Assessment Author No 05/13/2014 12:35 PM Gisselle Alvarez LPN documented as of this encounter Mental Status * Because of a physical, mental, or emotional condition, do you have serious difficulty concentrating, remembering, or making decisions? Answer Entry Date Author No 05/13/2014 12:35 PM Gisselle Alvarez LPN documented in this encounter Plan of Treatment Not on file documented as of this encounter Visit Diagnoses Not on filedocumented in this encounter Care Teams Associate Professor Computer Science Relationship Specialty Start Date End Date Deshawn Rose DO [address] [place] [address] [place] [address] Referring Quality Systems Engineer 05/07/23 documented as of this encounter
--- OUTSIDE RECORDS SUMMARY | 2024-11-26 19:15 | XMS_ITS | Encounter Summary ---
Author Organization [facility] Address [facility] [place] [address] Care Team Providers Care Container Finisher Name Role Phone Deshawn Rose DO Unavailable [phone] Source Comments In the event this information is protected by the Federal Confidentiality of Alcohol and Drug AbusePatient Records regulations: The Federal rules restrict any use of the information to criminally investigate or prosecute any alcohol or drug abuse patient.[facility] Encounter Details Date Type Department Care Team (Late st Contact Info) Description 12/29/2023 Patient Msg Pre Anesthesia [address] [place] [address] Kira Dejesus [address] [place] [address] Your pre-operative instructions Social History Tobacco Use Types Packs/Day Years Used Date Smoking Tobacco: Former Cigarettes 0.5 3 015 2017 Alcohol Use Standard Drinks/Week Comments Yes 0 (1 standard drink = 0.6 oz pur e alcohol) Rarely Area Deprivation Index Answer Date Elias rded National Score (1-100), lower number is lower ri sk 45 05/17/2023 State Score (1-10), lower number is lower risk 2 05/17/2023 Data from: https://www.neighborhoodatlas.medicine.[facility].edu/. Last address used for calculation [address] [...] 05/13/2014 12:35 PM Gisselle Alvarez LPN * Are you blind or do you have serious difficulty seeing, even when wearing glasses? Answer Date of Assessment Author No 05/13/2014 12:35 PM Gisselle Alvarez LPN * Do you have serious difficulty walking or climbing stairs? Answer Date of Assessment Author No 05/13/2014 12:35 PM Gisselle Alvarez LPN * Do you have difficulty dressing or bathing? Answer Date of Assessment Author No 05/13/2014 12:35 PM Gisselle Alvarez LPN * Because of a physical, mental, [...] on filedocumented in this encounter Care Teams Container Finisher Relationship Specialty Start Date End Date Deshawn Rose DO [address] [place] [address] [place] [address] Referring Grocery Stocker 05/07/23 documented as of this encounter
--- OUTSIDE RECORDS SUMMARY | 2024-11-26 19:15 | XMS_ITS | Clinical Summary ---
Author Organization [facility] Address [address] [place], [place] [id number] Care Team Providers Care Supervisor Fryer Farm Name Role Phone Deshawn Rose DO Unavailable [phone] Allergies Active Allergy Reactions Criticality Noted Date Comments Bees Swelling 04/11/2023 Beeswax Other: See Comments 11/10/2018 Vancomycin Hives 11/07/2023 Venom-Honey Bee Swelling High 05/17/2023 Medications citalopram (CELEXA) 20 mg tablet Take 20 mg by mouth every morning. 04/18/2023 Active buPROPion (WELLBUTRIN) 75 mg tablet TAKE 2 TABLETS (150 MG) BY MOUTH IN THE MORNING. 02/28/2023 Active acetaminophen (TYLENOL EXTRA STRENGTH) 500 mg tablet Take 2 tablets by mouth every 6 hours as needed for pain. 60 tablet 12/22/2023 Active ibuprofen (MOTRIN) 600 mg tablet Take 1 tablet by mouth every 6 hours as needed for pain. 60 tablet 12/22/2023 Active Active Problems Problem Noted Date Diagnosed Date History of syncope 12/29/2023 Obesity, Class I, BMI 30-34.9 12/22/2023 Anxiety disorder 05/17/2023 05/17/2023 Acquired scoliosis 05/17/2023 05/17/2023 Asthma 05/17/2023 05/17/2023 Irritable bowel syndrome 05/17/2023 023 Sinus tachycardia 05/17/2023 05/17/2023 Syncope and collapse 05/17/2023 05/17/2023 Unspecified lump in unspecified breast 05/17/2023 Other specified re lated conditions, third trimester 02/08/2023 05/17/2023 Other specified noninflammatory disorders of vag litzy 08/21/2022 05/17/2023 06/25/2022 05/17/2023 Irregular menstruation, unspecified 06/24/2022 05/17/2023 Encounter for screening for human papillomavirus (HPV) 04/21/2022 05/17/2023 Back pain 05/13/2014 Resolved Problems Problem Noted Date Diagnosed Date Resolved Date Anemia due to acute blood loss 02/08/2023 05/17/2023 12/29/2023 Immunizations Immunization Administration Dates Next Due Haemophilus influenzae b (Hi b PRP-OMP) vaccine, 3-dose series (PEDVAX HIB) 08/24/2000,1999,1999,06/22 Haemophilus influenzae b (Hi b) vaccine, unspecified formulation 1999,1999 diphtheria tetanus pertussis (DTaP) vaccine, pediatric (INFANRIX) 01/20/2005,08/24/2000,1999,09/03,1999 diphtheria tetanus pertussis (DTaP) vaccine, unspecified formulation 08/24/2000 hepatitis B (HepB) vaccine, 3-dose series, age 0 yr - 19 yr (ENGERIX B-PEDS, RECOMBIVAX HB-PEDS) 1999,1999,1999 hepatitis B (HepB) vaccine, 3-dose series, age 20+ yr (ENGERIX-B, RECOMBIVAX HB) 1999,1999,1999 influenza (IIV4) vaccine, ag e 6 mo - 64 yr, quadrivalent, PF (AFLURIA, FLUARIX, FLULAVAL, FLUZONE) 04/03/2019 measles mumps rubella (MMR) vaccine (M-M-R II, PRIORIX) 01/20/2005,08/24/2000 meningococcal (MenACWY-CRM) vaccine, quadrivalent (MENVEO) 01/25/2012 meningococcal (MenACWY-D) va ccine, quadrivalent (MENACTRA) 01/25/2012 pneumococcal (PCV7) vaccine, 7 valent (PREVNAR 7) 03/01/2001,08/24/2000 poliovirus (IPV) vaccine, in activated (IPOL) 01/20/2005,08/24/2000 poliovirus (OPV) vaccine, tr ivalent, live, oral (ORIMUNE) 1999,1999 tetanus diphtheria pertussis (Tdap) vaccine, age 7+ yr (ADACEL, BOOSTRIX) 08/01/2017,01/25/2012 varicella (CYNTHIA) vaccine (VARIVAX) 01/25/2012, Family History Medical History Relation Comments HTN [Other] Father Bone cancer Maternal Aunt Arthritis Maternal Grandfather HTN [Other] Maternal Grandfather Arthritis Maternal Grandmother Leukemia Maternal Grandmother htn [Other] Maternal Grandmother esophageal cancer Maternal Uncle 1 Cancer Maternal Uncle 2 unsure of type Anesthesia Problems Mother awoke once d uring anesthesia HTN [Other] Mother Relation Status Comments Father Maternal Aunt Alive Maternal Grandfather Maternal Grandmother Maternal Uncle 1 Alive Maternal Uncle 2 Alive Mother Social History Tobacco Use Types Packs/Day Years Used Date Smoking Tobacco: Former Cigarettes 0.5 3 2 2017 Smokeless Tobacco: Never Tobacco Cessation:Counseling Given: Not Answered Alcohol Use Standard Drinks/Week Comments Yes 0 (1 standard drink = 0.6 oz pur e alcohol) Rarely Area Deprivation Index Answer Date Elias rded National Score (1-100), lower number is lower ri sk 45 05/17/2023 State Score (1-10), lower number is lower risk 2 05/17/2023 Data from: https://www.neighborhoodatlas.medicine.[facility].edu/. 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 Not on file Not on file Not on file Last Filed Vital Signs Vital Sign Reading Time Taken Comments Blood Pressure 129/81 05/18/2024 9:46 AM EST Pulse 79 02/10/2024 8:32 AM EDT Temperature 36.4 C (97.6 F) 02/10/2024 8:32 AM EDT Respiratory Rate 18 02/10/2024 8:32 AM EDT Oxygen Saturation 100% 02/10/2024 8:32 AM EDT Inhaled Oxygen Concentration - - Weight 87.4 kg (192 lb 10.9 oz) 05/18/2024 9:46 AM EST Height 162.6 cm (5' 4 ) 01/16/2024 9:56 AM EDT Body Mass Index 33.07 01/16/2024 9:56 AM EDT Plan of Treatment Health Maintenance Due Date Last Done Comments Peds To Adult Transition Ini tial Discussion 2011 Peds To Adult Transition Kyleigh ual Assessment 2013 HPV Vaccine (1 - 3-dose series) 2014 Annual PCP Team Chronic Dise ase Visit 2017 Depression Screening 2017 HIV Screening 2017 Hepatitis C Screening 2017 Cervical Cancer Screening 2020 Covid-19 Vaccine ( - 2023-2 5 season) 2024 Influenza Vaccine (Season Ended) 2025 04/03/20 19 DTaP,Tdap,Td Vaccine (8 - Td or Tdap) 08/02/2027 08/01/2017, 01/25/2012, 01/20/2005, Additional history exists Hepatitis B Vaccine Completed 1999, 1999, 1999, Additional history exists Medical Devices Implanted Type Area Fish Rod Maker Device Identifier Shelf Expiration Date Model / Serial / Lot Ultrasound Clip Implanted:Qty: 1 on 10/11/2023 at [facility] Right: Breast 05/11/2026 / / [id number] Insurance [employer]ITCHE[employer] Hover 3D PPO BLUE ACCESS PPO Care Teams Supervisor Fryer Farm Relationship Specialty Start Date End Date Deshawn [place] [address] Referring Import Clerk 05/07/23
--- OUTSIDE RECORDS SUMMARY | 2024-11-26 19:15 | XMS_ITS | Encounter Summary ---
Author Organization [facility] Address [address] [place] [address] Care Team Providers Care Abrasive Worker Name Role Phone Unavailable Primary Care Provider Unavailabl e Encounter Details Date Type Department Care Team (Late st Contact Info) Description 01/09/2024 Abstract [facility] OB [address] [place] [phone] Deshawn Rose DO [facility] [place], [place] [address] Social History Tobacco Use Types Packs/Day Years Used Date Smoking Tobacco: Never Smokeless Tobacco: Never Alcohol Use Standard Drinks/Week Comments Never 0 (1 standard drink = 0.6 oz pur e alcohol) Comments No Sex and Gender Information Value Date Recorded Sex Assigned at Not on file Legal Sex Female 11:47 PM EDT Gender Identity Female 11/11/2022 1:56 PM EDT Sexual Orientation Not on file documented as of this encounter Plan of Treatment Upcoming Encounters Date Type Department Care Team (Late st Contact Info) Description 11/28/2024 1:20 PM EDT Routine [facility] [address] [place] [address] Deshawn Rose DO [facility] [place], [place] [id number] documented as of this encounter Visit Diagnoses Not on filedocumented in this encounter
--- OUTSIDE RECORDS SUMMARY | 2024-11-26 19:15 | XMS_ITS | Encounter Summary ---
Author Organization [facility] Address [address] [place] [address] Care Team Providers Care Inventory Control Analyst Name Role Phone Unavailable Primary Care Provider Unavailabl e Encounter Details Date Type Department Care Team (Late st Contact Info) Description 11/22/2022 Abstract [facility] OB [address] [place] [id number] Deshawn Rose DO [facility] [address] [place], [place] [address] Social History Tobacco Use Types Packs/Day Years Used Date Smoking Tobacco: Never Smokeless Tobacco: Never Alcohol Use Standard Drinks/Week Comments Never 0 (1 standard drink = 0.6 oz pur e alcohol) Comments Yes Sex and Gender Information Value Date Recorded Sex Assigned at Not on file Legal Sex Female 11:47 PM EDT Gender Identity Female 11/11/2022 1:56 PM EDT Sexual Orientation Not on file documented as of this encounter Plan of Treatment Upcoming Encounters Date Type Department Care Team (Late st Contact Info) Description 11/28/2024 1:20 PM EDT Routine [facility] [address] [place] [address] Deshawn Rose DO [facility] [place], [place] [id number] documented as of this encounter Visit Diagnoses Not on filedocumented in this encounter
--- OUTSIDE RECORDS SUMMARY | 2024-11-26 19:15 | XMS_ITS | Encounter Summary ---
Author Organization [facility] Address [address] [place] [address] Care Team Providers Care River Boat Captain Name Role Phone Deshawn Rose DO Unavailable [phone] Source Comments In the event this information is protected by the Federal Confidentiality of Alcohol and Drug AbusePatient Records regulations: The Federal rules restrict any use of the information to criminally investigate or prosecute any alcohol or drug abuse patient.[facility] Encounter Details Date Type Department Care Team (Late st Contact Info) Description 01/06/2024 Patient Msg Ambulatory Surgery [address] [place] [address] Winnie Moya, FRANCINE arrival time and info Social History Tobacco Use Types Packs/Day Years Used Date Smoking Tobacco: Former Cigarettes 0.5 3 2 015 - 2018 Alcohol Use Standard Drinks/Week Comments Yes 0 (1 standard drink = 0.6 oz pur e alcohol) Rarely Area Deprivation Index Answer Date Elias rded National Score (1-100), lower number is lower ri sk 45 05/17/2023 State Score (1-10), lower number is lower risk 2 05/17/2023 Data from: https://www.neighborhoodatlas.medicine.[facility].edu/. Last address used for calculation [address] [...] on filedocumented in this encounter Care Teams River Boat Captain Relationship Specialty Start Date End Date Deshawn Rose DO [address] [place] [address] [place] [address] Referring Goodwill Representative 05/07/23 documented as of this encounter
--- OUTSIDE RECORDS SUMMARY | 2024-11-26 19:15 | XMS_ITS | Encounter Summary ---
Author Organization [facility] Address [address] [place] [address] Care Team Providers Care Disease Intervention Specialist Name Role Phone Unavailable Primary Care Provider Unavailabl e Encounter Details Date Type Department Care Team (Late st Contact Info) Description 11/11/2022 Abstract [facility] [address] [place] [id number] Deshawn Rose DO [facility] [address], [place] [address] Social History Tobacco Use Types Packs/Day Years [...] Description 11/28/2024 1:20 PM EDT Routine [facility] [address] [place] [address] Deshawn Rose DO [facility] [address] [place], [place] [id number] documented as of this encounter Visit Diagnoses Not on filedocumented in this encounter
--- OUTSIDE RECORDS SUMMARY | 2024-11-26 19:15 | XMS_ITS | Clinical Summary ---
Author Organization [facility] Address [address] [place] [address] Care Team Providers Care Patent Law Specialist Name Role Phone Unavailable Primary Care Provider Unavailabl e Allergies Active Allergy Reactions Criticality Noted Date Comments Bee Venom Swelling High 04/11/2023 Beeswax Hives,Swelling 11/10/2018 Other Reaction(s): Other: See Comments Silver Itching,Other,Rash,S well ing Low 06/14/2024 Vancomycin Hives,Itching,Shortn ess of breath High 11/07/2023 Medications citalopram (CeleXA) 20 MG tabletIndication s: depression, condition Take 1 tablet (20 mg) by mouth Daily 30 tablet 11 04/03/2024 04/03/20 25 Active buPROPion (Wellbutrin) 75 MG tabletIndication s:Anxiety, generalized Take 2 tablets (150 mg) by mouth Daily 180 tablet 3 04/03/2024 04/03/20 25 Active Encounters Date Type Department Care Team Description 11/21/2024 Travel 11/13/2024 1:50 PM EDT Routine [facility] [address] [facility] [place] [address] Deshawn Rose DO size inconsistent with dates ([facility]); 28 weeks gestation of ([facility]) 11/13/2024 Bamboo flowsheet [facility] [address] [facility] [place] [address] Deshawn Rose DO 11/12/2024 Travel 11/09/2024 Clinisync Result Encounter [facility] External Department Unsolicited Deshawn Rose DO 10/30/2024 2:20 PM EDT Routine [facility] [place] [address] [place] [address] Deshawn Rose, Second trimester ([facility]); 26 weeks gestation of ([facility]) 10/30/2024 Bamboo flowsheet [facility] [address] [address] Deshawn Rose, 10/25/2024 Travel 10/02/2024 1:40 PM EDT Routine [facility] [place] [address] [place] [address] Deshawn Rose, DO Second trimester ([facility]); 22 weeks gestation of ([facility]); Diabetes mellitus screening 10/02/2024 1:00 PM EDT Ancillary Procedure [facility] [place] [address] [place] [address] Encounter for follow-up ultrasound of anatomy ([facility]) 09/06/2024 Telephone [facility] [place] [address] [place] [address] Sheryl Diggs MA 09/03/2024 9:50 AM EDT Routine [facility] [place] [address] [place] [address] Deshawn Rose, Second trimester ([facility]); 18 weeks gestation of ([facility]) 09/03/2024 8:30 AM EDT Ancillary Procedure [facility] [place] [address] [place] [address] Screening, , for anatomic survey ([facility]) 09/03/2024 [address]phone [facility] [address] [place] [address] Sheryl Diggs MA 08/27/2024 Travel from Last 3 Months Family History Medical History Relation Name Comments Diabetes Father Hypertension Father Hypertension Mother Relation Name Status Comments Father Mother Social History Tobacco Use Types Packs/Day Years Used Date Smoking Tobacco: Never Smokeless Tobacco: Never Tobacco Cessation:Counseling Given: Not Answered Alcohol Use Standard Drinks/Week Comments Never 0 (1 standard drink = 0.6 oz pur e alcohol) Estimated Date of Delivery Comme nts Yes 01/30/2025 Based on Ultraso und Sex and Gender Information Value Date Recorded Sex Assigned at Not on file Legal Sex Female 11:47 PM EDT Gender Identity Female 11/11/2022 1:56 PM EDT Sexual Orientation Not on file Last Filed Vital Signs Vital Sign Reading Time Taken Comments Blood Pressure 116/82 11/13/2024 2:03 PM EDT Pulse - - Temperature - - Respiratory Rate - - Oxygen Saturation - - Inhaled Oxygen Concentration - - Weight 91.7 kg (202 lb 4 oz) 11/13/2024 2:03 PM EDT Height 162.6 cm (5' 4 ) 05/02/2023 2:42 PM EST Body Mass Index 34.72 05/02/2023 2:42 PM EST Plan of Treatment Upcoming Encounters Date Type Department Care Team (Late st Contact Info) Description 11/28/2024 1:20 PM EDT Routine [facility] [address] [facility] [phone] Deshawn Rose, DO [address] [place] [address] Procedures Procedure Name Priority Date/Time Associated Diagnosis Comments GLUCOSE 1 HOUR Routine 11/09/2024 3:05 PM EDT ALL CBC WITH AUTO DIFF Routine 11/09/2024 3:05 PM EDT POCT URINALYSIS DIPSTICK Routine 10/30/2024 3:04 PM EDT Second trimester ([facility]) POCT URINALYSIS DIPSTICK Routine 10/02/2024 2:06 PM EDT Second trimester ([facility]) US OB LIMITED 1+ FETUSES Routine 10/02/2024 1:35 PM EDT Encounter for follow-up ultrasound of anatomy ([facility]) POCT URINALYSIS DIPSTICK Routine 09/03/2024 10:20 AM EDT Second trimester ([facility]) US OB 14+ WEEKS ANATOMY SCAN Routine 09/03/2024 9:38 AM EDT Screening, , for anatomic survey ([facility]) from Last 3 Months Results * GLUCOSE 1 HOUR (11/09/2024 3:05 PM EDT) GLUCOSE 1 HOUR 75 <130 mg/dL [facility] 11/09/2024 3:05 PM EDT 11/09/2024 3:05 PM EDT Narrative CLINISY[facility] - 11/09/2024 3:24 PM EDT us Deshawn Rose DO LAB BLOOD ORDERABLES Final Resul t [facility] * (ABNORMAL) ALL CBC WITH AUTO DIFF (11/09/2024 3:05 PM EDT) [facility] WBC 11.8(H) 4.0 - 11.0 10 3/uL [facility] TB[facility] RBC 4.39 4.20 - 5.40 10 6/uL [facility] TB[facility] HGB 12.3 12.0 - 16.0 g/dL TB[facility] TBH HCT 37.4 36.0 - 48.0 % [facility] MCV 85.2 81.0 - 99.0 fL TBH TBH MCH 28.0 26.7 - 34.0 pg TBH TBH MCHC 32.9 29.9 - 35.2 g/dL TB[facility] TBH RDW 13.2 11.0 - 15.0 % [facility] TBH PLT 278 150 - 450 10 3/uL TBH TBH MPV 10.5 9.5 - 13.5 fL [facility]H NEUTROPHILS PERCENT AUTO 71.5 43.0 - 75.0 % [facility] LYMPHOCYTES PERCENT AUTO 17.2(L) 20.5 - 60.0 % [facility] MONOCYTES PERCENT AUTO 9.8 1.7 - 12.0 % [facility] TB[facility] EO % 0.5(L) 0.9 - 7.0 % [facility] BASOPHILS PERCENT AUTO 0.3 0.2 - 2.0 % [facility] IMMATURE GRANULOCYTES PCT AUTO 0.7(H) 0.0 - 0.5 % [facility] NEUTROPHILS ABSOLUTE AUTO 8.4(H) 1.4 - 6.5 10 3/uL [facility] LYMPHOCYTES ABSOLUTE AUTO 2.0 1.2 - 3.8 10 3/uL [facility] MONOCYTES ABSOLUTE AUTO 1.2(H) 0.3 - 0.8 10 3/uL TB[facility] TBH EO # 0.1 0.0 - 0.7 10 3/uL [facility] BASOPHILS ABSOLUTE AUTO 0.0 0.0 - 0.1 10 3/uL [facility] IMMATURE GRANULOCYTES ABS AUTO 0.08(H) 0.00 - 0.03 10 3/uL [facility] 11/09/2024 3:05 PM EDT 11/09/2024 3:05 PM EDT Narrative CLINISYNC - 11/09/2024 3:14 PM EDT us Deshawn Rose DO CLINISYNC Final Result [facility] * (ABNORMAL) POCT urinalysis dipstick manually resulted (10/30/2024 3:04 PM EDT) Only the most recent of3 resultswithin the time period is included. Color, UA Yellow Clarity, UA Clear Glucose, UA Negative Negative - 1999(110) ++++ mg/dL Bilirubin, UA Negative Negative - 4(70) +++ mg/dL Ketones, UA Negative Negative - 160(16) ++++ mg/dL Spec Grav, UA 1.025 1 - 1.03 Blood, UA Negative Negative - 50 Ruel/mcL pH, UA 7.0 5 - 9 Protein, UA Positive Negative - 1999(20) ++++ mg/dL Comment:30 Urobilinogen, UA 0.2 0.2 - 12 mg/dL Leukocytes, UA Negative Negative - 500+++ Coretta/mcL Nitrite, UA Negative Negative - Positive Urine 10/30/2024 3:04 PM EDT Deshawn Rose DO POINT OF CARE TEST ENTER/EDIT OR DERABLES Final Result * US OB limited 1+ fetuses (10/02/2024 1:35 PM EDT) Anatomical Region Laterality Modality Body Ultrasound 10/03/2024 8:44 AM EDT Narrative 10/03/2024 8:44 AM EDT EXAM: US OB LIMITED 1+ FETUSES HISTORY: FOLLOW UP ANATOMY. NHAN 01/30/2025. . COMPARISON: U/S OB 09/03/2024 TECHNIQUE: Two-dimensional transabdominal grayscale ultrasound imaging of the pelvis was performed. FINDINGS: Gestation: Single Presentation: Breech Cardiac Activity: 155 beats per minute Placental Location: Posterior with no sonographic abnormalities identified. Distance from Placental Tip to Cervix: Not visualized Cervical Length: Suboptimally visualized due to overlying fetus Amniotic Fluid Index: Not measured, appears visually adequate ANATOMY Four Chamber Heart: Unremarkable LVOT: Unremarkable RVOT: Unremarkable IMPRESSION: 1. Single, live intrauterine gestation 22 weeks, 6 days by LMP. 2. Unremarkable four-chamber heart, LVOT and RVOT on today's exam. This completes the anatomy survey. Interpreted by: Electronically signed by JONY PRIETO II, MD, PHD at 03-Oct-2024 08:43:07 AM [facility] Procedure Note Jony Prieto MD - 10/03/2024 EXAM: US OB LIMITED 1+ FETUSES HISTORY: FOLLOW UP ANATOMY. NHAN 01/30/2025. . COMPARISON: U/S OB 09/03/2024 TECHNIQUE: Two-dimensional transabdominal grayscale ultrasound imaging ofthe pelvis was performed. FINDINGS: Gestation: Single Presentation: Breech Cardiac Activity: 155 beats per minute Placental Location: Posterior with no sonographic abnormalitiesidentified. Distance from Placental Tip to Cervix: Not visualized Cervical Length: Suboptimally visualized due to overlying fetus Amniotic Fluid Index: Not measured, appears visually adequate ANATOMY Four Chamber Heart: Unremarkable LVOT: Unremarkable RVOT: Unremarkable IMPRESSION: 1. Single, live intrauterine gestation 22 weeks, 6 days by LMP. 2. Unremarkable four-chamber heart, LVOT and RVOT on today's exam. Thiscompletes the anatomy survey. Interpreted by: Electronically signed by JONY PRIETO II, MD, PHD [id number] 08:43:07 AM [facility] us Deshawn Rose DO IMG OB US PROCEDURES Final Resul t * US OB 14+ weeks anatomy scan (09/03/2024 9:38 AM EDT) Anatomical Region Laterality Modality Body Ultrasound 09/04/2024 11:2 6 PM EDT Narrative 09/04/2024 11:26 PM EDT EXAM: US OB 14+ WEEKS ANATOMY SCAN HISTORY: anatomy. COMPARISON: None available. TECHNIQUE: Two-dimensional transabdominal grayscale ultrasound imaging of the pelvis was performed. FINDINGS: Gestation: Single Presentation: Cephalic Cardiac Activity: 132 beats per minute Placental Location: Posterior with no sonographic abnormalities identified. Distance from Placental Tip to Cervix: 3.4 cm Cervical Length: 5.2 cm Amniotic Fluid: Appears adequate MEASUREMENTS: BPD: 4.4 cm EGA: 19 weeks 2 days HC: 16.0 cm EGA: 18 weeks 6 days AC: 14.4 cm EGA: 19 weeks 5 days FL: 2.9 cm EGA: 18 weeks 6 days HC/AC Ratio: 1.11 The gestational age by today's ultrasound is 19 weeks 1 days (+/- 9 days gestation). Estimated Weight: 284 grams, +/- 43 grams ( 0 lb 10 oz). Weight Percentile for gestational age: 79 % ANATOMY C-Spine: Unremarkable T-Spine: Unremarkable L-Spine: Unremarkable Sacrum: Unremarkable Four Chamber Heart: Limited LVOT: Limited RVOT: Limited Stomach: Unremarkable Kidneys: Unremarkable Bladder: Unremarkable Diaphragm: Unremarkable Cord insertion: Unremarkable Cord vessels: Three Lateral Ventricles: Unremarkable Cerebellum: Unremarkable Cisterna Magna: Unremarkable Posterior Fossa: Unremarkable Right Femur: Unremarkable Left Femur: Unremarkable Right Tib/Fib: Unremarkable Left Tib/Fib: Unremarkable Right Rad/Ulnar: Unremarkable Left Rad/Ulnar: Unremarkable Right Humerus: Unremarkable Left Humerus: Unremarkable Nose/Lips: Unremarkable Orbits: Unremarkable IMPRESSION: 1. Single, live intrauterine gestation 18 weeks, 5 days by LMP. Today's ultrasound measurements correlate with a gestational age of 19 weeks 1 days. Estimated weight is 284 grams, +/- 43 grams ( 0 lb 10 oz) which correlates to 79 %. NHAN is 01/27/2025. 2. Unremarkable anatomy with limited visualization of the outflow tracts. A short-term follow-up ultrasound is recommended. Electronically Signed:Electronically signed by JONY PRIETO II, MD, PHD at 04-Sep-2024 11:25:02 PM [facility] Procedure Note Jony Prieto MD - 09/04/2024 EXAM: US OB 14+ WEEKS ANATOMY SCAN HISTORY: anatomy. COMPARISON: None available. TECHNIQUE: Two-dimensional transabdominal grayscale ultrasound imaging ofthe pelvis was performed. FINDINGS: Gestation: Single Presentation: Cephalic Cardiac Activity: 132 beats per minute Placental Location: Posterior with no sonographic abnormalitiesidentified. Distance from Placental Tip to Cervix: 3.4 cm Cervical Length: 5.2 cm Amniotic Fluid: Appears adequate MEASUREMENTS: BPD: 4.4 cm EGA: 19 weeks 2 days HC: 16.0 cm EGA: 18 weeks 6 days AC: 14.4 cm EGA: 19 weeks 5 days FL: 2.9 cm EGA: 18 weeks 6 days HC/AC Ratio: 1.11 The gestational age by today's ultrasound is 19 weeks 1 days (+/- 9 daysgestation). Estimated Weight: 284 grams, +/- 43 grams ( 0 lb 10 oz). Weight Percentile for gestational age: 79 % ANATOMY C-Spine: Unremarkable T-Spine: Unremarkable L-Spine: Unremarkable Sacrum: Unremarkable Four Chamber Heart: Limited LVOT: Limited RVOT: Limited Stomach: Unremarkable Kidneys: Unremarkable Bladder: Unremarkable Diaphragm: Unremarkable Cord insertion: Unremarkable Cord vessels: Three Lateral Ventricles: Unremarkable Cerebellum: Unremarkable Cisterna Magna: Unremarkable Posterior Fossa: Unremarkable Right Femur: Unremarkable Left Femur: Unremarkable Right Tib/Fib: Unremarkable Left Tib/Fib: Unremarkable Right Rad/Ulnar: Unremarkable Left Rad/Ulnar: Unremarkable Right Humerus: Unremarkable Left Humerus: Unremarkable Nose/Lips: Unremarkable Orbits: Unremarkable IMPRESSION: 1. Single, live intrauterine gestation 18 weeks, 5 days by LMP. Today'sultrasound measurements correlate with a gestational age of 19 weeks 1days. Estimated weight is 284 grams, +/- 43 grams ( 0 lb 10 oz)which correlates to 79 %. NHAN is 01/27/2025. 2. Unremarkable anatomy with limited visualization of the outflowtracts. A short-term follow-up ultrasound is recommended. Electronically Signed:Electronically signed by JONY PRIETO II, MD, PHDat 04-Sep-2024 11:25:02 PM [facility] us Deshawn Rose DO IMG OB US PROCEDURES Final Resul t from Last 3 Months Insurance [facility] Member Subscriber Plan / Payer ( fective 2022-Present) Name:Yael Ayers Relation to Subscriber:Spouse Name:CALDERON AYERS Date of :1997 Address: [address] [place] [id number] Payer ID:Not on file Type:Not on file Address: [facility] [id number] [place] [id number]
--- OUTSIDE RECORDS SUMMARY | 2024-11-26 19:15 | XMS_ITS | Encounter Summary ---
Author Organization [facility] Address [address] [place] [address] Care Team Providers Care Slitting Machine Operator Helper Name Role Phone Unavailable Primary Care Provider Unavailabl e Encounter Details Date Type Department Care Team (Late st Contact Info) Description 04/11/2023 Clinisync Result Encounter [facility] External Department Unsolicited Demetrice Rose, DO [address] [place], [place] [address] Social History Tobacco Use Types Packs/Day Years [...] PM EDT Routine [facility] [address] [facility] [place] [address] Demetrice Rose, DO [address] [place], [place] [id number] documented as of this encounter Procedures Procedure Name Priority Date/Time Associated Diagnosis Comments US VAC ASST BX BREAST RT W CLIP 04/11/2023 12:19 PM EST documented in this encounter Results * US VAC ASST BX BREAST RT W CLIP (04/11/2023 12:19 PM EST) Anatomical Region Laterality Modality Radiographic Aziza ging 04/11/2023 12:1 9 PM EST Narrative 04/11/2023 12:19 PM EST [address] [address] Ultrasound Report Signed Patient: JONG AYERS MR#: [id number] : 2000 Acct:[id number] Age/Sex: 23 / F ADM Date: 04/11/23 Loc: US Attending Dr: Demetrice Rose D.O. Ordering Physician: Demetrice Rose D.O. Date of Service: 04/11/23 Procedure(s): US breast vac bx w/ clip RT Accession Number(s): [id number] cc: Demetrice Rose D.O.; Physician,Non-Staff M.Veronika [address] [address] Patient Name: JONG AYERS MRN: [id number] date: 2000 Sex: F Assigned Patient Location: US Current Patient Location: US Accession/Order Number: [id number] Exam Date: 04/11/2023 11:00 Report Date: 04/11/2023 12:19 At the request of: DEMETRICE ROSE Procedure: US breast vac bx w/ clip RT EXAM: US breast vac bx w/ clip RT HISTORY: Right Breast Mass N63.10 COMPARISON: Ultrasound breast right Limited 03/23/2023 TECHNIQUE: After obtaining informed consent, ultrasound-guided biopsy was performed in the usual sterile manner. The location of the biopsy was then marked as indicated below. FINDINGS: Specimen #, Location: 3 core samples from right breast 6:00 mass 2.2 x 1.7 x 0.9 cm which is nearly isoechoic to surrounding fat, but has notably different firmer/rubbery feel during biopsy. Biopsy Needle: 13 gauge vacuum core biopsy needle. Marker(s): A single metallic marker was placed in the appropriate targeted location. Medication: Buffered 1% Lidocaine with epinephrine administered locally. Complications: None. Pathology: Pending. US/US breast vac bx w/ clip RT IMPRESSION: 1. Uneventful ultrasound-guided breast biopsy. 2. Pathology results are pending. An addendum to this report will be provided after pathology results are available. Electronically authenticated by: ANDRES LEWIS Date: 04/11/2023 12:19 Dictated By: Andres Lewis M.D. Signed By: 04/11/23 1222 DD/ 1219 TD/TT: Vehicle Assembler: Procedure Note Radiology, Radiologist, MD - 04/11/2023 [place] [address] Ultrasound Report Signed Patient: JONG AYERS RMR#: [id number] : 2000Acct:[id number] Age/Sex: 23 / FADM Date: 04/11/23 Loc: US Attending Dr: Demetrice Rose D.O. Ordering Physician: Demetrice Rose D.O. Date of Service: 04/11/23 Procedure(s): US breast vac bx w/ clip RT Accession Number(s): [id number] cc: Demetrice Rose D.O.; Physician,Non-Staff K[place] [address] [place] [id number] Patient Name: JONG AYERS MRN: [id number] date: 2000 Sex: F Assigned Patient Location: US Current Patient Location: US Accession/Order Number: [id number] Exam Date: 04/11/2023 11:00 Report Date: 04/11/2023 12:19 At the request of: DEMETRICE ROSE Procedure: US breast vac bx w/ clip RT EXAM: US breast vac bx w/ clip RT HISTORY: Right Breast Mass N63.10 COMPARISON: Ultrasound breast right Limited 03/23/2023 TECHNIQUE: After obtaining informed consent, ultrasound-guided biopsy was performed in the usual sterile manner. The location of the biopsy was then marked as indicated below. FINDINGS: Specimen #, Location: 3 core samples from right breast 6:00 mass 2.2 x 1.7x 0.9 cm which is nearly isoechoic to surrounding fat, but has notablydifferent firmer/rubbery feel during biopsy. Biopsy Needle: 13 gauge vacuum core biopsy needle. Marker(s): A single metallic marker was placed in the appropriate targeted location. Medication: Buffered 1% Lidocaine with epinephrine administered locally. Complications: None. Pathology: Pending. US/US breast vac bx w/ clip RT IMPRESSION: 1. Uneventful ultrasound-guided breast biopsy. 2. Pathology results are pending. An addendum to this report will be provided after pathology results are available. Electronically authenticated by: ANDRES LEWIS Date: 04/11/2023 12:19 Dictated By: Andres Lewis M.D. Signed By:04/11/23 1222 DD/ 1219 TD/TT: Vehicle Assembler: us Demetrice Rose DO IMG XR PROCEDURES Final Result documented in this encounter Visit Diagnoses Not on filedocumented in this encounter
--- OUTSIDE RECORDS SUMMARY | 2024-11-26 19:15 | XMS_ITS | Encounter Summary ---
Author Organization [facility] Address [address] [facility] [place] [address] Care Team Providers Care Squirrel Man Name Role Phone Unavailable Primary Care Provider Unavailabl e Encounter Details Date Type Department Care Team (Late st Contact Info) Description 06/14/2024 Clinisync Result Encounter [facility] External Department Unsolicited Demetrice Rose, DO [address] [place], [place] [phone] Social History Tobacco Use Types Packs/Day Years [...] PM EDT Routine [facility] [address] [facility] [place] [phone] Demetrice Rose DO [address] [place], [place] [phone] documented as of this encounter Procedures Procedure Name Priority Date/Time Associated Diagnosis Comments US OB TRANSVAGINAL 06/14/2024 2: 36 PM EST documented in this encounter Results * US OB TRANSVAGINAL (06/14/2024 2:36 PM EST) Anatomical Region Laterality Modality Other 06/14/2024 2:36 PM EST Narrative 06/14/2024 2:39 [place] [address] Ultrasound Report Signed Patient: JONG AYERS MR#: [id number] : 2000 Acct:[id number] Age/Sex: 24 / F ADM Date: 06/14/24 Loc: US Attending Dr: Demetrice Rose D.O. Ordering Physician: Demetrice Rose D.O. Date of Service: 06/14/24 Procedure(s): US OB transvaginal Accession Number(s): [id number] cc: Demetrice Rose D.O.; Physician,Non-Staff M.DDeven The [place] [id number] Patient Name: JONG AYERS MRN: [id number] date: 2000 Sex: F Assigned Patient Location: US Current Patient Location: US Accession/Order Number: [id number] Exam Date: 06/14/2024 13:10 Report Date: 06/14/2024 14:36 At the request of: DEMETRICE ROSE Procedure: US OB transvaginal EXAMINATION: US OB transvaginal HISTORY: Missed Menses COMPARISON: No relevant comparison available. FINDINGS: Transvaginal images Choe intrauterine gestation Gestational sac: 3.09 cm, 8 weeks 0 days CRL: 1.05 cm, 7 weeks 1 day Yolk sac: 2.0 mm Heart rate: 157 beats minute Cervix: Closed, 3.6 cm The uterus is normal, anteverted The ovaries are normal. Left corpus luteal cyst Clinical age: 8 weeks 4 days Clinical NHAN: 01/20/2025 Ultrasound age: 7 weeks 1 day Ultrasound NHAN: 01/30/2025 US/US OB transvaginal IMPRESSION: Viable choe intrauterine gestation measuring 7 weeks 1 day Electronically authenticated by: SIMA LEVY Date: 06/14/2024 14:36 Dictated By: Sima Levy M.D. Signed By: 06/14/24 1439 DD/ 1436 TD/TT: Customer Quality Specialist: Procedure Note Radiology, Radiologist, - 06/14/2024 [place] [address] Ultrasound Report Signed Patient: JONG AYERS RMR#: [id number] : 2000Acct:[id number] Age/Sex: 24 / FADM Date: 06/14/24 Loc: US Attending Dr: Demetrice Rose D.O. Ordering Physician: Demetrice Rose D.O. Date of Service: 06/14/24 Procedure(s): US OB transvaginal Accession Number(s): [id number] cc: Demetrice Rose D.O.; Physician,Non-Staff Kael The [place] [id number] Patient Name: JONG AYERS MRN: [id number] date: 2000 Sex: F Assigned Patient Location: US Current Patient Location: US Accession/Order Number: [id number] Exam Date: 06/14/2024 13:10 Report Date: 06/14/2024 14:36 At the request of: DEMETRICE ROSE Procedure: US OB transvaginal EXAMINATION: US OB transvaginal HISTORY: Missed Menses COMPARISON: No relevant comparison available. FINDINGS: Transvaginal images Choe intrauterine gestation Gestational sac: 3.09 cm, 8 weeks 0 days CRL: 1.05 cm, 7 weeks 1 day Yolk sac: 2.0 mm Heart rate: 157 beats minute Cervix: Closed, 3.6 cm The uterus is normal, anteverted The ovaries are normal. Left corpus luteal cyst Clinical age: 8 weeks 4 days Clinical NHAN: 01/20/2025 Ultrasound age: 7 weeks 1 day Ultrasound NHAN: 01/30/2025 US/US OB transvaginal IMPRESSION: Viable choe intrauterine gestation measuring 7 weeks 1 day Electronically authenticated by: SIMA LEVY Date: 06/14/2024 14:36 Dictated By: Sima Levy M.D. Signed By:06/14/24 1439 DD/ 1436 TD/TT: Customer Quality Specialist: us Demetrice Rose DO [facility] Final Result documented in this encounter Visit Diagnoses Not on filedocumented in this encounter
--- OUTSIDE RECORDS SUMMARY | 2024-11-26 19:15 | XMS_ITS | Encounter Summary ---
Author Organization [facility] Address [address] [facility] [place] [address] Care Team Providers Care Residential Appraiser Name Role Phone Unavailable Primary Care Provider Unavailabl e Encounter Details Date Type Department Care Team (Late st Contact Info) Description 12/06/2022 Abstract [facility] [address] [place] [phone] Deshawn Rose DO [facility] [address] [place], [place] [address] Social History Tobacco Use Types Packs/Day Years [...] Description 11/28/2024 1:20 PM EDT Routine [facility] [address] [place] [address] Deshawn Rose DO [facility] [address] [place], [place] [phone] documented as of this encounter Visit Diagnoses Not on filedocumented in this encounter
--- OUTSIDE RECORDS SUMMARY | 2024-11-26 19:15 | XMS_ITS | Encounter Summary ---
Author Organization [facility] Address [address] [place] [address] Care Team Providers Care Packager Or Packer And Weigher Name Role Phone Unavailable Primary Care Provider Unavailabl e Encounter Details Date Type Department Care Team (Late st Contact Info) Description 04/11/2023 Clinisync Result Encounter [facility] External Department Unsolicited Demetrice Rose, DO [address] [place], [place] [address] Social History Tobacco Use Types Packs/Day Years [...] [facility] OB [address] [facility] [place] [place] [phone] Demetrice Rose, DO [address], [place] [phone] documented as of this encounter Procedures Procedure Name Priority Date/Time Associated Diagnosis Comments US VAC ASST BX BREAST RT W CLIP 04/11/2023 12:19 PM EST documented in this encounter Results * US VAC ASST BX BREAST RT W CLIP (04/11/2023 12:19 PM EST) Anatomical Region Laterality Modality Radiographic Aziza ging 04/11/2023 12:1 9 PM EST Narrative 12/26/2023 8:27 [place] [address] Ultrasound Report Signed with Addenda Patient: JONG AYERS MR#: [id number] : 2000 Acct:[id number] Age/Sex: 23 / F ADM Date: 04/11/23 Loc: US Attending Dr: Demetrice Rose D.O. Ordering Physician: Demetrice Rose D.O. Date of Service: 04/11/23 Procedure(s): US breast vac bx w/ clip RT Accession Number(s): [id number] cc: Demetrice Rose D.O.; Physician,Non-Staff M.D. ADDENDUM The [address] [address] Patient Name: JONG AYERS MRN: [id number] date: 2000 Sex: F Assigned Patient Location: US Current Patient Location: US Accession/Order Number: [id number] Exam Date: 04/11/2023 11:00 Report Date: 04/20/2023 07:57 At the request of: DEMETRICE ROSE Procedure: US breast vac bx w/ clip RT Begin Addendum #1 COLLECTED DATE/TIME: 04/11/2023 11:39 EST Final Diagnosis Report for [facility], [place] RIGHT BREAST, 6 O'CLOCK MASS, ULTRASOUND GUIDED BIOPSY: -CONSISTENT WITH ADENOMA, SEE COMMENT. Negative for atypia and malignancy. 04/18/[address] Rose. Verified with Nolvia that report was present in office. Original Report EXAM: US breast vac bx w/ clip RT HISTORY: Right Breast Mass N63. 10 COMPARISON: Ultrasound breast right Limited 03/23/2023 TECHNIQUE: After obtaining informed consent, ultrasound-guided biopsy was performed in the usual sterile manner. The location of the biopsy was then marked as indicated below. FINDINGS: Specimen #, Location: 3 core samples from right breast 6:00 mass 2. 2 x 1. 7 x 0. 9 cm which is nearly isoechoic to surrounding fat, but has notably different firmer/rubbery feel during biopsy. Biopsy Needle: 13 gauge vacuum core biopsy needle. Marker(s): A single metallic marker was placed in the appropriate targeted location. Medication: Buffered 1% Lidocaine with epinephrine administered locally. Complications: None. Pathology: Pending. Addendum Dictated By: Andres Lewis M.D. Addendum Signed By: <Electronically signed by Andres Lewis M.D.> 12/26/[address]26 Addendum Cosigned By: DD/ TD/TT: / ADDENDUM US/US breast vac bx w/ clip RT IMPRESSION: 1. Uneventful ultrasound-guided breast biopsy. 2. Pathology results are pending. An addendum to this report will be provided after pathology results are available. Electronically authenticated by: ANDRES LEWIS Date: 04/20/2023 07:57 Addendum Dictated By: Andres Lewis M.D. Addendum Signed By: <Electronically signed by Andres Lewis M.D.> 12/26/23826 Addendum Cosigned By: DD/ TD/TT: / [address] [address] Patient Name: JONG AYERS MRN: [id number] date: 2000 Sex: F Assigned Patient Location: US Current Patient Location: US Accession/Order Number: [id number] Exam Date: 04/11/2023 11:00 Report Date: 04/11/2023 [...] results are available. Electronically authenticated by: ANDRES LWEIS Date: 04/11/2023 12:19 Dictated By: Andres Lewis M.D. Signed By: 04/11/23 1222 DD/ 1219 TD/TT: Back Joiner: Procedure Note Radiology, Radiologist, MD - 12/26/2023 [place] [address] Ultrasound Report Signed with Addenda Patient: JONG AYERS RMR#: [id number] : 2000Acct:[id number] Age/Sex: 23 / FADM Date: 04/11/23 Loc: US Attending Dr: Demetrice Rose D.O. Ordering Physician: Demetrice Rose D.O. Date of Service: 04/11/23 Procedure(s): US breast vac bx w/ clip RT Accession Number(s): [id number] cc: Demetrice Rose D.O.; Physician,Non-Staff M.Veronika ADDENDUM The [place] [id number] Patient Name: JONG AYERS MRN: [id number] date: 2000 Sex: F Assigned Patient Location: US Current Patient Location: US Accession/Order Number: [id number] Exam Date: 04/11/2023 11:00 Report Date: 04/20/2023 07:57 At the request of: DEMETRICE ROSE Procedure: US breast vac bx w/ clip RT Begin Addendum #1 COLLECTED DATE/TIME: 04/11/2023 11:39 EST Final Diagnosis Report for [facility], [place], [place] RIGHT BREAST, 6 O'CLOCK MASS, ULTRASOUND GUIDED BIOPSY: -CONSISTENT WITH ADENOMA, SEE COMMENT. Negative for atypia and malignancy. 04/18/[address] Rose. Verified with Nolvia that report waspresent in office. Original Report EXAM: US breast vac bx w/ clip RT HISTORY: Right Breast Mass N63. 10 COMPARISON: Ultrasound breast right Limited 03/23/2023 TECHNIQUE: After obtaining informed consent, ultrasound-guided biopsy was performed in the usual sterile manner. The location of the biopsy was then marked as indicated below. FINDINGS: Specimen #, Location: 3 core samples from right breast 6:00 mass 2. 2 x 1.7 x 0. 9 cm which is nearly isoechoic to surrounding fat, but has notably different firmer/rubbery feel during biopsy. Biopsy Needle: 13 gauge vacuum core biopsy needle. Marker(s): A single metallic marker was placed in the appropriate targeted location. Medication: Buffered 1% Lidocaine with epinephrine administered locally. Complications: None. Pathology: Pending. Addendum Dictated By: Andres Lewis M.D. Addendum Signed By: <Electronically signed by Andres Lewis M.D.> 12/26/23826 Addendum Cosigned By: DD/ TD/TT: / ADDENDUM US/US breast vac bx w/ clip RT IMPRESSION: 1. Uneventful ultrasound-guided breast biopsy. 2. Pathology results are pending. An addendum to this report will be provided after pathology results are available. Electronically authenticated by: ANDRES LEWIS Date: 04/20/2023 07:57 Addendum Dictated By: Andres Lewis M.D. Addendum Signed By: <Electronically signed by Andres Lewis M.D.> 12/26/23826 Addendum Cosigned By: DD/ TD/TT: / [place] [id number] Patient Name: JNOG AYERS MRN: [id number] date: 2000 Sex: F Assigned Patient Location: US Current Patient Location: US Accession/Order Number: [id number] Exam Date: 04/11/2023 11:00 Report Date: 04/11/2023 [...] M.D. Signed By:04/11/23 1222 DD/ 1219 TD/TT: Back Joiner: us Demetrice Rose DO IMG XR PROCEDURES Final Result documented in this encounter Visit Diagnoses Not on filedocumented in this encounter
--- OUTSIDE RECORDS SUMMARY | 2024-11-26 19:15 | XMS_ITS | Encounter Summary ---
Author Organization [facility] Address [address] [place] [address] Care Team Providers Care Claims Account Manager Name Role Phone Unavailable Primary Care Provider Unavailabl e Encounter Details Date Type Department Care Team (Late st Contact Info) Description 12/07/[address] [facility] OB [address] [place] [phone] Deshawn Rose DO [facility] [address] [place], [place] [address] Social History Tobacco Use Types Packs/Day Years [...] Description 11/28/2024 1:20 PM EDT Routine [facility] OB [address] [place] [address] Deshawn Rose DO [facility] [address] [place], [place] [phone] documented as of this encounter Visit Diagnoses Not on filedocumented in this encounter
--- OUTSIDE RECORDS SUMMARY | 2024-11-26 19:15 | XMS_ITS | Encounter Summary ---
Author Organization [facility] Address [address] [facility] [place] [address] Care Team Providers Care Edger Technician Name Role Phone Unavailable Primary Care Provider Unavailabl e Encounter Details Date Type Department Care Team (Late st Contact Info) Description 08/22/2024 Orders Only [facility] OB [address] [facility] [place] [address] Nolvia Paul LPN [address] [facility] [place] [address] Social History Tobacco Use Types Packs/Day Years [...] PM EDT Routine [facility] BCP OB [address] [facility] [place] [address] Deshawn Rose DO [address] [facility] [address] [place], [place] [phone] documented as of this encounter Procedures Procedure Name Priority Date/Time Associated Diagnosis Comments PAP SMEAR Routine 08/14/2024 12:00 AM EDT documented in this encounter Results * Pap Smear (08/14/2024 12:00 AM EDT) Swab Cervical swab / Unknown us Rose Nurse [facility] Bcp Ob LAB CYTOLOGY ORDERABLES Final Result EXTERNAL LAB documented in this encounter Visit Diagnoses Not on filedocumented in this encounter
--- OUTSIDE RECORDS SUMMARY | 2024-11-26 19:15 | XMS_ITS | Encounter Summary ---
Author Organization [facility] Address [address] [place] [address] Care Team Providers Care Lead Ramp Agent Name Role Phone Unavailable Primary Care Provider Unavailabl e Encounter Details Date Type Department Care Team (Latest Contact Info) Description 11/12/2024 Travel Social History Tobacco Use Types Packs/Day Years [...] PM EDT Routine [facility] BCP OB [address] [facility] [place] [address] Deshawn Rose, DO [address] [facility] [address] [place], [facility] documented as of this encounter Visit Diagnoses Not on filedocumented in this encounter
--- OUTSIDE RECORDS SUMMARY | 2024-11-26 19:15 | XMS_ITS | Encounter Summary ---
Author Organization [facility] Address [address] [place] [address] Care Team Providers Care Surgical Scrub Tech Name Role Phone Unavailable Primary Care Provider Unavailabl e Encounter Details Date Type Department Care Team (Late st Contact Info) Description 11/22/2022 Abstract [facility] OB [address] [place] [phone] Deshawn Rose DO [facility] [address] [place], [place] [address] Social History Tobacco Use Types Packs/Day Years [...] Description 11/28/2024 1:20 PM EDT Routine [facility] OB [address] [place] [address] Deshawn Rose DO [facility] [address] [place], [place] [phone] documented as of this encounter Visit Diagnoses Not on filedocumented in this encounter
--- OUTSIDE RECORDS SUMMARY | 2024-11-26 19:15 | XMS_ITS | Encounter Summary ---
Author Organization [facility] Address [address] [place] [address] Care Team Providers Care Chief Architect Name Role Phone Unavailable Primary Care Provider Unavailabl e Encounter Details Date Type Department Care Team (Latest Contact Info) Description 11/21/2024 Travel Social History Tobacco Use Types Packs/Day [...] Routine [facility] OB [address] [facility] [place] [address] Deshawn Rose, DO [address] [facility] [address] [place], [facility]11 documented as of this encounter Visit Diagnoses Not on filedocumented in this encounter
== END 2024-11-26 19:14 | disposition home or self-care (01) ==
LOC: US 19:13
PROVIDERS: Visit Provider Obstetrics & Gynecology
DX: O26.849 Uterine size-date discrepancy, unspecified trimester (principal); Z3A.32 32 weeks gestation of pregnancy
CPT/HCPCS: 76816

== ENCOUNTER 2024-11-28 07:36 | Outpatient (RCR) | payer BC, SELFPAY ==
[2024-11-28 12:39] VITALS: BP 117/74; PULSE 88; TEMP 36.5; O2SAT 98
[2024-11-28] MEDS: RHO(D) IMMUNE GLOBULIN 1,500 UNIT SYRINGE 1500 UNIT IM (12:42)
== END 2024-12-27 23:59 | disposition home or self-care (01) ==
LOC: INF 07:36
PROVIDERS: Visit Provider Obstetrics & Gynecology
DX: O26.893 Other specified pregnancy related conditions, third trimester (principal); Z67.91 Unspecified blood type, Rh negative; Z3A.00 Weeks of gestation of pregnancy not specified
CPT/HCPCS: 36415; 86850; 86900; 86901; 96372; J2791